=== PATIENT | female | born 2000 | race Two or more races ===

== ENCOUNTER 2022-02-13 09:01 | Inpatient (IN) | payer MEDICAID, SELFPAY ==
[2022-02-13] VITALS (25 sets, daily range): BP systolic 101–119; BP diastolic 67–86; PULSE 73–101; RESP 16; TEMP 36.2–36.8; O2SAT 97–100
--- NOTE | 2022-02-13 10:01 | ED_ITS ---
HPI - General Adult General Time Seen by Provider: 10:07 Date Seen: 02/13/22 Chief complaint: Nausea/Vomiting Stated complaint: loose stool and vomitting Time Seen by Provider: 02/13/22 09:59 Source: patient and RN notes reviewed Mode of arrival: ambulatory Limitations: no limitations History of Present Illness HPI narrative: This 21-year-old female is coming in with 6 days of illness, concerned that she is not improving and really can not eat anything. She did try to call the clinic but the 1st appointment they could give her was February 18. She was on a plane to [place] and started feeling nauseated, thought it was just motion sickness. However when she got to [place] she did have ensuing worsening nausea, vomiting, diarrhea and has had ongoing symptoms. There has been no blood. She is able to drink some fluids but really can not eat anything. She does get some abdominal pain, no fevers. No respiratory symptoms. She saw nurse yesterday before getting on a plane to come back from [place]. Her pulse was in the 130s. She really was not cognizant that her pulse was that high. Her pulse remained that high on her watch during air travel. She is not having any chest pain, no shortness of breath. She is on oral contraceptives and does not believe she has missed any doses. She has had some increased vaginal discharge but there is no odor, no pain, no itching. She is sexually active but no concerns for any STi's. She has had no respiratory symptoms with this. No urinary symptoms. There is no family history of any inflammatory bowel disease that she is aware of. She states she still having ongoing nausea and vomiting, ongoing diarrhea. Related Data Previous Rx's Medication Instructions Recorded levonorgestrel 0.15 mg-ethinyl 1 tab PO QDAY 56 days #56 tabs 12/11/21 estradiol 0.03 mg tablet Allergies Allergy/AdvReac Type Severity Reaction Status Date / Time strawberry Allergy Difficulty Verified 02/13/22 09:33 Breathing Review of Systems Status of ROS: Reports: 10 or more systems reviewed and unremarkable except as noted in History and below [facility] Medical History (Updated 02/13/22 @ 14:11 by Valeri Simon MD) Migraines Family History (Updated 11/18/21 @ 09:33 by Megan Dubosi MD) Other Breast cancer High blood pressure Social History (Updated 11/18/21 @ 09:34 by Megan Dubois MD) Narrative: She lives in [place]. 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 Originally from [facility]. Doesn't smoke or use recreational drugs. Drinks alcohol socially Smoking Status: Never smoker Do you use any of these nicotine containing products: None Second hand tobacco smoke exposure: No How often do you have a drink containing alcohol: monthly or less How many standard drinks containing alcohol do you have on a typical day: 1 or 2 How often do you have six or more drinks on one occasion: Never AUDIT-C Alcohol total score: 1 Non-prescribed substance use: denies use service: No Exam Const: Vital Signs, click to edit/add: Vital Signs - 24 hr 02/13/22 09:29 02/13/22 10:57 02/13/22 10:59 Temperature 97.1 F L Pulse Rate 81 Pulse Rate [Pulse Oximeter] 96 Respiratory Rate 16 Blood Pressure Blood Pressure [Ri ght Upper Arm] 119/86 Pulse Oximetry 99 99 98 Oxygen Delivery Me thod Room Air 02/13/22 11:00 02/13/22 11:01 02/13/22 11:15 Temperature Pulse Rate 83 92 81 Pulse Rate [Pulse Oximeter] Respiratory Rate Blood Pressure 109/76 Blood Pressure [Ri ght Upper Arm] Pulse Oximetry 98 98 98 Oxygen Delivery Me thod 02/13/22 11:30 02/13/22 11:31 02/13/22 11:57 Temperature Pulse Rate 81 94 101 H Pulse Rate [Pulse Oximeter] Respiratory Rate Blood Pressure 109/74 Blood Pressure [Ri ght Upper Arm] Pulse Oximetry 99 99 100 Oxygen Delivery Me thod 02/13/22 12:00 02/13/22 12:01 02/13/22 12:15 Temperature Pulse Rate 95 98 76 Pulse Rate [Pulse Oximeter] Respiratory Rate Blood Pressure 116/67 Blood Pressure [Ri ght Upper Arm] Pulse Oximetry 98 99 98 Oxygen Delivery Me thod 02/13/22 12:30 02/13/22 12:31 02/13/22 12:45 Temperature Pulse Rate 75 85 87 Pulse Rate [Pulse Oximeter] Respiratory Rate Blood Pressure 108/73 Blood Pressure [Ri ght Upper Arm] Pulse Oximetry 98 99 99 Oxygen Delivery Me thod 02/13/22 13:01 02/13/22 13:01 02/13/22 13:15 Temperature Pulse Rate 85 73 87 Pulse Rate [Pulse Oximeter] Respiratory Rate Blood Pressure 110/72 Blood Pressure [Ri ght Upper Arm] Pulse Oximetry 99 98 97 Oxygen Delivery Me thod 02/13/22 13:31 Temperature Pulse Rate Pulse Rate [Pulse Oximeter] Respiratory Rate Blood Pressure 101/69 Blood Pressure [Ri ght Upper Arm] Pulse Oximetry Oxygen Delivery Me thod Documenting provider has reviewed patient's vital signs: yes Common normals: no apparent distress, average body habitus, oriented x3, no limitations, healthy appearing, alert and well nourished General appearance: cooperative, comfortable, well kempt and well developed HENMT: Common normals: normocephalic, head/scalp atraumatic, hearing grossly normal bilaterally, external ears normal, TM's normal bilaterally, external nose normal, nasal mucous membranes and turbinates normal, moist oral mucous membranes, oropharynx normal, dentition normal and gingiva normal Head and scalp: normocephalic and atraumatic Nose: external nose normal and nasal mucous membranes and turbinates normal External ear: external ears normal Tympanic membrane: TM's normal bilaterally Eye: Common normals: PERRL, EOMs intact bilaterally, conjunctivae normal and no scleral icterus Conjunctiva: conjunctiva(e) normal Pupil: PERRL Neck & C-Spine: Common normals: full ROM, no lymphadenopathy, supple, no meningeal signs, no JVD and thyroid normal Thyroid: thyroid normal Lymph: Lymphatic: no lymphadenopathy noted Chest: Common normals: inspection of chest normal Resp: Common normals: normal respiratory effort, no retractions, no use of accessory muscles and clear to auscultation bilaterally Auscultation: clear to auscultation bilaterally Cardio: Common normals: no JVD, regular rate, regular rhythm, S1 normal heart sound, S2 normal heart sound, no gallops, no clicks and no murmurs Rate: regular rate Rhythm: regular rhythm Heart sounds: S1 normal and S2 normal GI: Common normals: Normal to inspection, nondistended, normoactive bowel sounds present, soft to palpation, non-tender, no hepatosplenomegaly and no masses Palpation: soft and no hepatosplenomegaly : Common normals: no CVA tenderness Bladder/kidney exam: no CVA tenderness Back & Pelvis: Common normals: no CVA tenderness Neuro: Common normals: oriented x3 Sensorium/orientation: alert Meningeal signs: no meningeal signs Psych: Appearance: well kempt Course Course Hospital Course: Patient is exhibiting ongoing GI symptomatology which could be a gastroenteritis, inflammatory bowel disease, could be a presentation of some of the current viral illnesses with more of a GI predominance such as COVID or influenza. Could be complicating issues with the tachycardia being dehydration but will consider other etiologies. Doubt it is myocarditis. Will do a D- dimer, she understands if that is elevated she will be having a chest CT PE protocol. Will initiate some IV fluids and give her IV Zofran. She understands if she does have stool here that we will collect for studies. Reevaluation(s) Reevaluation #1: Patient is advised that I am ordering a CT of her abdomen and pelvis. She does relate to me that her white count usually is elevated. However, I have reviewed with her that her C reactive protein is quite high. I do think we need to proceed with CT abdomen pelvis given length of her symptoms. She is negative for influenza and COVID, reviewed with her that her cardiac labs are looking normal, D-dimer is normal. Likewise, her electrolytes are reassuring. Time: 11:31 Reevaluation #2: Reviewed with patient CT scan showing colitis. I have spoken with the hospitalist, bed status is quite limited, possibly no beds at this time. Patient will be given more IV fluids. I feel she needs some supportive cares while we attempt to collect stool on her. I believe she needs hospitalization for some ongoing fluid management and ongoing workup of her abdominal pain with nausea vomiting and diarrhea that is ongoing with a CT showing colitis. Will have the hospitalist consult down here if they are unable to admit at this time. This may be a patient that may benefit from Flagyl if her C difficile were to come back negative. Time: 14:10 Consultations Consultation #1: Have spoken with the hospitalist Dr. Scott who will accept the patient. He would like blood cultures obtain and then a dose of IV Zosyn given. I will order this on his request. Time: 15:05 Vital Signs Vital signs: Initial Vital Signs Temperature 97.1 F L 02/13/22 09:29 Temperature Source Temporal Artery Scan 02/13/22 09:29 Pulse Rate 96 02/13/22 09:29 Respiratory Rate 16 02/13/22 09:29 Blood Pressure 119/86 02/13/22 09:29 Blood Pressure Mean 97 02/13/22 09:29 Blood Pressure Position Sitting 02/13/22 09:29 Pulse Oximetry 99 02/13/22 09:29 Oxygen Delivery Method 02/13/22 09:29 Vital Signs Temperature 97.1 F L 02/13/22 09:29 Pulse Rate 96 02/13/22 09:29 Respiratory Rate 16 02/13/22 09:29 Blood Pressure 119/86 02/13/22 09:29 Pulse Oximetry 99 02/13/22 09:29 Oxygen Delivery Method 02/13/22 09:29 Temperature 97.1 F L 02/13/22 09:29 Pulse Rate 87 02/13/22 13:15 Respiratory Rate 16 02/13/22 09:29 Blood Pressure 101/69 02/13/22 13:31 Pulse Oximetry 97 02/13/22 13:15 Oxygen Delivery Method 02/13/22 09:29 Medical Decision Making Lab Data Lab results reviewed: Yes I reviewed the patient's lab results Labs: Lab Results 02/13/22 02/13/22 02/13/22 Range/Units 09:44 10:30 10:30 WBC 12.60 H (4.50-11.00) K/uL RBC 5.17 (4.00-5.20) m/uL Hgb 14.8 (12.0-16.0) gm/dL Hct 44.1 (33.0-51.0) % MCV 85 (80-100) fL MCH 29 (26-34) pg MCHC 34 (32-36) gm/dL RDW Coeff of Rosa 12.4 (11.5-15.5) % Plt Count 465 H (140-440) K/uL Neut % (Auto) 73.6 H (42.0-72.0) % Lymph % (Auto) 18.1 L (20-44) % [place] % (Auto) 7.6 (0.0-11.0) % Eos % (Auto) 0.4 (0.0-7.0) % Baso % (Auto) 0.1 (0.0-3.0) % Neut # (Auto) 9.30 H (1.7-7.0) K/uL Lymph # (Auto) 2.30 (0.90-2.90) K/uL [place] # (Auto) 1.00 H (0.00-0.90) K/UL Eos # (Auto) 0.10 (0.00-0.50) K/uL Baso # (Auto) 0.00 (0.00-0.30) K/uL Abs Immat Gran (auto) 0.00 (0.00-0.30) K/uL Imm/Tot Granulo (auto) 0.2 % ESR (2-20) mm/hr D-Dimer Quant (PE/DVT) (0.00-0.50) ug/ml Sodium 140 (135-149) mmol/L Potassium 4.0 (3.6-5.1) mmol/L Chloride 107 (96-114) mmol/L Carbon Dioxide 21 (20-32) mmol/L BUN 15 (5-24) mg/dL Creatinine 0.8 (0.5-1.5) mg/dL Estimated GFR 107 ml/min Glucose 77 (60-115) mg/dL Lactate (0.5-1.9) mmol/L Calcium 9.2 (8.4-10.6) mg/dL Magnesium (1.5-2.6) mg/dL Total Bilirubin 0.6 (0.1-1.5) mg/dL AST 31 (12-35) U/L ALT 37 H (4-35) U/L Alkaline Phosphatase 78 (40-150) U/L C-Reactive Protein 8.4 H (0.5-1.0) mg/dL NT-Pro-B Natriuret Pep (0-125) PG/mL Total Protein 8.0 (6.0-8.3) g/dL Albumin 4.7 (3.3-5.0) g/dL Lipase (23-300) U/L TSH (0.270-4.200) uIU/mL HCG, Qual (Negative) Urine Color (Yellow) Urine Appearance (Clear) Urine pH (5.0-8.5) Ur Specific [place] (1.000-1.030) Urine Protein (Negative) Urine Glucose (UA) (Negative) Urine Ketones (Negative) Urine Blood (Negative) Urine Nitrite (Negative) Urine Bilirubin (Negative) Urine Urobilinogen (0.2-1.0) Ur Leukocyte Esterase (Negative) Urine RBC (0-2) Urine WBC (0-5) Ur Squamous Epith Cells (None-Few) Urine Bacteria (None) SARS-CoV-2 (PCR) Negative SARS-CoV-2 (Negative) Influenza Type A (PCR) Negative PCR FLU A (Negative) Influenza Type B (PCR) Negative PCR FLU B (Negative) POC Troponin I (0.01-0.04) ng/ml 02/13/22 02/13/22 02/13/22 Range/Units 10:30 10:30 10:30 WBC (4.50-11.00) K/uL RBC (4.00-5.20) m/uL Hgb (12.0-16.0) gm/dL Hct (33.0-51.0) % MCV (80-100) fL MCH (26-34) pg MCHC (32-36) gm/dL RDW Coeff of Rosa (11.5-15.5) % Plt Count (140-440) K/uL Neut % (Auto) (42.0-72.0) % Lymph % (Auto) (20-44) % [place] % (Auto) (0.0-11.0) % Eos % (Auto) (0.0-7.0) % Baso % (Auto) (0.0-3.0) % Neut # (Auto) (1.7-7.0) K/uL Lymph # (Auto) (0.90-2.90) K/uL [place] # (Auto) (0.00-0.90) K/UL Eos # (Auto) (0.00-0.50) K/uL Baso # (Auto) (0.00-0.30) K/uL Abs Immat Gran (auto) (0.00-0.30) K/uL Imm/Tot Granulo (auto) % ESR 16 (2-20) mm/hr D-Dimer Quant (PE/DVT) 0.29 (0.00-0.50) ug/ml Sodium (135-149) mmol/L Potassium (3.6-5.1) mmol/L Chloride (96-114) mmol/L Carbon Dioxide (20-32) mmol/L BUN (5-24) mg/dL Creatinine (0.5-1.5) mg/dL Estimated GFR ml/min Glucose (60-115) mg/dL Lactate (0.5-1.9) mmol/L Calcium (8.4-10.6) mg/dL Magnesium 2.1 (1.5-2.6) mg/dL Total Bilirubin (0.1-1.5) mg/dL AST (12-35) U/L ALT (4-35) U/L Alkaline Phosphatase (40-150) U/L C-Reactive Protein (0.5-1.0) mg/dL NT-Pro-B Natriuret Pep 28 (0-125) PG/mL Total Protein (6.0-8.3) g/dL Albumin (3.3-5.0) g/dL Lipase 52 (23-300) U/L TSH (0.270-4.200) uIU/mL HCG, Qual (Negative) Urine Color (Yellow) Urine Appearance (Clear) Urine pH (5.0-8.5) Ur Specific [place] (1.000-1.030) Urine Protein (Negative) Urine Glucose (UA) (Negative) Urine Ketones (Negative) Urine Blood (Negative) Urine Nitrite (Negative) Urine Bilirubin (Negative) Urine Urobilinogen (0.2-1.0) Ur Leukocyte Esterase (Negative) Urine RBC (0-2) Urine WBC (0-5) Ur Squamous Epith Cells (None-Few) Urine Bacteria (None) SARS-CoV-2 (PCR) (Negative) Influenza Type A (PCR) (Negative) Influenza Type B (PCR) (Negative) POC Troponin I (0.01-0.04) ng/ml 02/13/22 02/13/22 02/13/22 Range/Units 10:30 10:30 10:30 WBC (4.50-11.00) K/uL RBC (4.00-5.20) m/uL Hgb (12.0-16.0) gm/dL Hct (33.0-51.0) % MCV (80-100) fL MCH (26-34) pg MCHC (32-36) gm/dL RDW Coeff of Rosa (11.5-15.5) % Plt Count (140-440) K/uL Neut % (Auto) (42.0-72.0) % Lymph % (Auto) (20-44) % [place] % (Auto) (0.0-11.0) % Eos % (Auto) (0.0-7.0) % Baso % (Auto) (0.0-3.0) % Neut # (Auto) (1.7-7.0) K/uL Lymph # (Auto) (0.90-2.90) K/uL [place] # (Auto) (0.00-0.90) K/UL Eos # (Auto) (0.00-0.50) K/uL Baso # (Auto) (0.00-0.30) K/uL Abs Immat Gran (auto) (0.00-0.30) K/uL Imm/Tot Granulo (auto) % ESR (2-20) mm/hr D-Dimer Quant (PE/DVT) (0.00-0.50) ug/ml Sodium (135-149) mmol/L Potassium (3.6-5.1) mmol/L Chloride (96-114) mmol/L Carbon Dioxide (20-32) mmol/L BUN (5-24) mg/dL Creatinine (0.5-1.5) mg/dL Estimated GFR ml/min Glucose (60-115) mg/dL Lactate 1.1 (0.5-1.9) mmol/L Calcium (8.4-10.6) mg/dL Magnesium (1.5-2.6) mg/dL Total Bilirubin (0.1-1.5) mg/dL AST (12-35) U/L ALT (4-35) U/L Alkaline Phosphatase (40-150) U/L C-Reactive Protein (0.5-1.0) mg/dL NT-Pro-B Natriuret Pep (0-125) PG/mL Total Protein (6.0-8.3) g/dL Albumin (3.3-5.0) g/dL Lipase (23-300) U/L TSH 2.150 (0.270-4.200) uIU/mL HCG, Qual Negative (Negative) Urine Color (Yellow) Urine Appearance (Clear) Urine pH (5.0-8.5) Ur Specific [place] (1.000-1.030) Urine Protein (Negative) Urine Glucose (UA) (Negative) Urine Ketones (Negative) Urine Blood (Negative) Urine Nitrite (Negative) Urine Bilirubin (Negative) Urine Urobilinogen (0.2-1.0) Ur Leukocyte Esterase (Negative) Urine RBC (0-2) Urine WBC (0-5) Ur Squamous Epith Cells (None-Few) Urine Bacteria (None) SARS-CoV-2 (PCR) (Negative) Influenza Type A (PCR) (Negative) Influenza Type B (PCR) (Negative) POC Troponin I (0.01-0.04) ng/ml 02/13/22 02/13/22 Range/Units 10:30 14:30 WBC (4.50-11.00) K/uL RBC (4.00-5.20) m/uL Hgb (12.0-16.0) gm/dL Hct (33.0-51.0) % MCV (80-100) fL MCH (26-34) pg MCHC (32-36) gm/dL RDW Coeff of Rosa (11.5-15.5) % Plt Count (140-440) K/uL Neut % (Auto) (42.0-72.0) % Lymph % (Auto) (20-44) % [place] % (Auto) (0.0-11.0) % Eos % (Auto) (0.0-7.0) % Baso % (Auto) (0.0-3.0) % Neut # (Auto) (1.7-7.0) K/uL Lymph # (Auto) (0.90-2.90) K/uL [place] # (Auto) (0.00-0.90) K/UL Eos # (Auto) (0.00-0.50) K/uL Baso # (Auto) (0.00-0.30) K/uL Abs Immat Gran (auto) (0.00-0.30) K/uL Imm/Tot Granulo (auto) % ESR (2-20) mm/hr D-Dimer Quant (PE/DVT) (0.00-0.50) ug/ml Sodium (135-149) mmol/L Potassium (3.6-5.1) mmol/L Chloride (96-114) mmol/L Carbon Dioxide (20-32) mmol/L BUN (5-24) mg/dL Creatinine (0.5-1.5) mg/dL Estimated GFR ml/min Glucose (60-115) mg/dL Lactate (0.5-1.9) mmol/L Calcium (8.4-10.6) mg/dL Magnesium (1.5-2.6) mg/dL Total Bilirubin (0.1-1.5) mg/dL AST (12-35) U/L ALT (4-35) U/L Alkaline Phosphatase (40-150) U/L C-Reactive Protein (0.5-1.0) mg/dL NT-Pro-B Natriuret Pep (0-125) PG/mL Total Protein (6.0-8.3) g/dL Albumin (3.3-5.0) g/dL Lipase (23-300) U/L TSH (0.270-4.200) uIU/mL HCG, Qual (Negative) Urine Color Yellow (Yellow) Urine Appearance Clear (Clear) Urine pH 5.0 (5.0-8.5) Ur Specific [place] 1.010 (1.000-1.030) Urine Protein Negative (Negative) Urine Glucose (UA) Negative (Negative) Urine Ketones 4+ A (Negative) Urine Blood 2+ A (Negative) Urine Nitrite Negative (Negative) Urine Bilirubin Negative (Negative) Urine Urobilinogen 0.2 (0.2-1.0) Ur Leukocyte Esterase Negative (Negative) Urine RBC 2-5 A (0-2) Urine WBC 0-2 (0-5) Ur Squamous Epith Cells Few (None-Few) Urine Bacteria Few A (None) SARS-CoV-2 (PCR) (Negative) Influenza Type A (PCR) (Negative) Influenza Type B (PCR) (Negative) POC Troponin I 0.01 (0.01-0.04) ng/ml Imaging Data CT scan - abdomen: Attestation: I have reviewed the pertinent imaging results. Radiologist's impression: Patient: JUVE LANTIGUA Facility:?[facility] Patient ID:?[id number] Site Patient ID:?[id number]. Site :?[id number] Study:?CT Abdomen/Pelvis W ISOVUE 370-02/13/2022 12:07:15 PM Ordering Physician:Germain Trammell Final Report: INDICATION: Nausea, vomiting, diarrhea, prolonged abdominal pain. Elevated inflammatory markers and WBC. TECHNIQUE: CT abdomen and pelvis acquired with 74 mL Isovue 370 IV contrast. Coronal and sagittal reformats were generated. COMPARISON: None. FINDINGS: Lower chest: Streaky left basilar opacity is likely atelectasis or scarring. Liver: Notably decreased attenuation of the liver is compatible with steatosis. Otherwise, unremarkable. Gallbladder and bile ducts: Unremarkable. No stones or inflammation. No biliary dilation. Spleen: Unremarkable. Pancreas: Unremarkable. Adrenal glands: Unremarkable. No nodules. Kidneys and Ureters: Unremarkable. No suspicious masses, stones, or hydronephrosis. Lymph Nodes and Retroperitoneum: Multiple enlarged mesenteric lymph nodes, primarily in the mid abdomen and right side. Vasculature: Unremarkable. GI tract: Portions of the colon demonstrate mucosal thickening and hyperemia, most prominently in the ascending and proximal transverse segments. Bowel loops are normal in caliber. Normal appendix. Peritoneum/Abdominal Wall: Unremarkable. No free air or free fluid. Pelvic Viscera: Unremarkable. Bladder: Unremarkable. Bones: Unremarkable for age. IMPRESSION: 1. Mucosal thickening and hyperemia of the proximal colon is compatible with colitis, most likely infectious or inflammatory in etiology. 2. Scattered enlarged lymph nodes are likely reactive. 3. Notable hepatic steatosis. Please note that all CT scans at this facility use dose modulation, iterative reconstruction, and/or weight-based dosing when appropriate to reduce radiation dose to as low as reasonably achievable. Dictated by Trevor Garza MD @ 02/13/2022 12:59:01 PM (Electronic Signature) ECG Data Attestation: I personally reviewed and interpreted this ECG as follows: (Sinus tachycardia, 102 beats per minute, flipped T-waves V1 through V3, flat V4/V5. No ST segment changes, no Q-waves. QT corrected 463 milliseconds.) Prior ECG tracings: not available for review Critical Care Time Critical Care Time Critical Care Time: No Discharge Plan Discharge Clinical Impression: Colitis Patient Disposition: Admitted As Inpatient Condition: Stable
[2022-02-13 10:43] LABS: Basophils Percent Auto 0.1 % (0.0-3.0); Eosinophils Percent Auto 0.4 % (0.0-7.0); Hematocrit 44.1 % (33.0-51.0); Hemoglobin* 14.8 gm/dL (12.0-16.0); Immature Granulocytes Pct Auto 0.2 %; Lymphocytes Percent Auto 18.1 % (20-44); Mean Corpuscular HGB Conc 34 gm/dL (32-36); Mean Corpuscular Hemoglobin 29 pg (26-34); Mean Corpuscular Volume 85 fL (80-100); Monocytes Percent Auto 7.6 % (0.0-11.0); Neutrophils Percent Auto 73.6 % (42.0-72.0); Platelet Count* 465 K/uL (140-440); RDW Coefficient of Variation % 12.4 % (11.5-15.5); Red Blood Count 5.17 m/uL (4.00-5.20)
[2022-02-13 10:46] LABS: Troponin, Point-of-Care* 0.01 ng/ml (0.01-0.04)
[2022-02-13] MEDS: ONDANSETRON 2 MG/ML inj 4 MG IVP (10:46)
[2022-02-13] MEDS: 0.9 % SODIUM CHLORIDE 1000 ml 1,000 ML 500 ML IV (10:46)
[2022-02-13 10:48] LABS: Slide Review Reflex No
[2022-02-13 10:49] LABS: Lactate* 1.1 mmol/L (0.5-1.9)
[2022-02-13 10:53] LABS: PCR FLU A Negative PCR FLU A (Negative); PCR FLU B Negative PCR FLU B (Negative)
[2022-02-13 10:56] LABS: SARS PCR* Negative SARS-CoV-2 (Negative)
[2022-02-13 11:00] LABS: HCG Qualitative Serum* Negative (Negative)
[2022-02-13 11:02] LABS: D Dimer Quantitative* 0.29 ug/ml (0.00-0.50)
[2022-02-13 11:06] LABS: Albumin* 4.7 g/dL (3.3-5.0); Chloride* 107 mmol/L (96-114)
[2022-02-13 11:07] LABS: Sodium* 140 mmol/L (135-149)
[2022-02-13 11:09] LABS: Bilirubin Total* 0.6 mg/dL (0.1-1.5); Creatinine* 0.8 mg/dL (0.5-1.5); Estimated Glomerular Filt Rate 107 ml/min
[2022-02-13 11:10] LABS: Alanine Aminotransferase* 37 U/L (4-35); Alkaline Phosphatase* 78 U/L (40-150); Aspartate Amino Transferase* 31 U/L (12-35); Blood Urea Nitrogen* 15 mg/dL (5-24); Calcium* 9.2 mg/dL (8.4-10.6); Carbon Dioxide* 21 mmol/L (20-32); Glucose* 77 mg/dL (60-115); Lipase* 52 U/L (23-300)
[2022-02-13 11:11] LABS: Magnesium* 2.1 mg/dL (1.5-2.6)
[2022-02-13 11:13] LABS: C Reactive Protein* 8.4 mg/dL (0.5-1.0)
[2022-02-13 11:19] LABS: NT Pro B Type NatriureticPept* 28 PG/mL (0-125)
--- NOTE | 2022-02-13 11:20 | CRLHL7_ITS ---
For Patients: As a result of the Century Cures Act, medical imaging exams and procedure reports are released immediately into your electronic medical record. You may view this report before your referring provider. If you have questions, please contact your health care provider. INDICATION: Nausea, vomiting, diarrhea, prolonged abdominal pain. Elevated inflammatory markers and WBC. TECHNIQUE: CT abdomen and pelvis acquired with 74 mL Isovue 370 IV contrast. Coronal and sagittal reformats were generated. COMPARISON: None. FINDINGS: Lower chest: Streaky left basilar opacity is likely atelectasis or scarring. Liver: Notably decreased attenuation of the liver is compatible with steatosis. Otherwise, unremarkable. Gallbladder and bile ducts: Unremarkable. No stones or inflammation. No biliary dilation. Spleen: Unremarkable. Pancreas: Unremarkable. Adrenal glands: Unremarkable. No nodules. Kidneys and Ureters: Unremarkable. No suspicious masses, stones, or hydronephrosis. Lymph Nodes and Retroperitoneum: Multiple enlarged mesenteric lymph nodes, primarily in the mid abdomen and right side. Vasculature: Unremarkable. GI tract: Portions of the colon demonstrate mucosal thickening and hyperemia, most prominently in the ascending and proximal transverse segments. Bowel loops are normal in caliber. Normal appendix. Peritoneum/Abdominal Wall: Unremarkable. No free air or free fluid. Pelvic Viscera: Unremarkable. Bladder: Unremarkable. Bones: Unremarkable for age. IMPRESSION: 1. Mucosal thickening and hyperemia of the proximal colon is compatible with colitis, most likely infectious or inflammatory in etiology. 2. Scattered enlarged lymph nodes are likely reactive. 3. Notable hepatic steatosis. Please note that all CT scans at this facility use dose modulation, iterative reconstruction, and/or weight-based dosing when appropriate to reduce radiation dose to as low as reasonably achievable. Dictated by Trevor Garza MD @ 02/13/2022 12:59:01 PM (Electronically Signed)
[2022-02-13 11:39] LABS: Erythrocyte SedimentationRate* 16 mm/hr (2-20)
[2022-02-13 14:48] LABS: Appearance Urine Clear (Clear); Bilirubin Urine Negative (Negative); Blood Urine 2+ (Negative); Glucose Urine Negative (Negative); Ketones Urine 4+ (Negative); Leukocyte Esterase Urine Negative (Negative); Nitrite Urine Negative (Negative); Protein Urine Negative (Negative); Urobilinogen Urine 0.2 (0.2-1.0)
[2022-02-13] MEDS: LACTATED RINGERS 1000 ML 1,000 ML 125 ML IV (14:59)
[2022-02-13 15:04] LABS: WBC Urine 0-2 (0-5)
[2022-02-13 15:05] LABS: Bacteria Urine Few; Squamous Epithelial Cell Urine Few (None-Few)
[2022-02-13 15:09] LABS: Color Urine Yellow (Yellow)
[2022-02-13] MEDS: PIPERACILLIN/TAZOBACTAM 3.375 GM in 0.9 % SODIUM CHLORIDE Mini-bag 100 ML IVPB ×2 (15:33→20:50)
--- NOTE | 2022-02-13 15:45 | ED.NURSE ---
report was given to abimael montano. will go to 262 via w/c.
--- NOTE | 2022-02-13 16:45 | PM.IMHP1 ---
Hospitalist- H&P: HPI History of Present Illness Date Seen: 03/14/22 Chief complaint: loose stool and vomitting Narrative: Rosemary Osborne is a 21 year old female presenting for evaluation of abdominal pain and diarrhea. The patient was in [facility] for over one week. She did not travel to rural areas and drank bottled water. She returned to [place] yesterday. She developed diarrhea on the plane and continued to have diarrhea today with intermittent crampy abdominal pain. She denies fever. In the ED WBC elevated at 12 (per patient she has chronically elevated WBC), Lactate WNL. CT AP showed Mucosal thickening and hyperemia of the proximal colon is compatible with colitis, most likely infectious or inflammatory in etiology. Scattered enlarged lymph nodes are likely reactive. Notable hepatic steatosis. She was given IVF and started on zosyn. On arrival to the floor the patient is asking if she can be discharged. Review of Systems Narrative: negative except as noted above PFSH PENDING SALE TO [facility] Medical History (Updated 02/13/22 @ 14:11 by Valeri Simon MD) Migraines Family History (Updated 11/18/21 @ 09:33 by Megan Dubois MD) Other Breast cancer High blood pressure Social History (Updated 11/18/21 @ 09:34 by Megan Dubois MD) Narrative: She lives in [place]. She is working at the [employer], and is also a student at [employer]. 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 Originally from [facility]. Doesn't smoke or use recreational drugs. Drinks alcohol socially Smoking Status: Never smoker Do you use any of these nicotine containing products: None Second hand tobacco smoke exposure: No How often do you have a drink containing alcohol: monthly or less How many standard drinks containing alcohol do you have on a typical day: 1 or 2 How often do you have six or more drinks on one occasion: Never AUDIT-C Alcohol total score: 1 Non-prescribed substance use: denies use service: No Meds Home Medications and Allergies Allergies Allergy/AdvReac Type Severity Reaction Status Date / Time strawberry Allergy Difficulty Verified 02/13/22 09:33 Breathing Exam Narrative: Exam Narrative: Gen: No acute distress HEENT NCAT EOMI MMMM CV: RRR s1 s2 lctab abdomen: soft, nt, nd Neuro: Alert oriented cn intact skin: warm, dry no rash MSK age appropriate muscle mass Const: Vital Signs, click to edit/add: Vital Signs - 24 hr 02/13/22 09:29 02/13/22 10:57 02/13/22 10:59 Temperature 97.1 F L Pulse Rate 81 Pulse Rate [Pulse Oximeter] 96 Pulse Rate [Right Radial] Respiratory Rate 16 Blood Pressure Blood Pressure [Ri ght Arm] Blood Pressure [Ri ght Upper Arm] 119/86 Pulse Oximetry 99 99 [facility] 02/13/22 11:00 02/13/22 11:01 02/13/22 11:15 Temperature Pulse Rate 83 92 81 Pulse Rate [Pulse Oximeter] Pulse Rate [Right Radial] Respiratory Rate Blood Pressure 109/76 Blood Pressure [Ri ght Arm] Blood Pressure [Ri ght Upper Arm] Pulse Oximetry 98 98 98 [facility] 02/13/22 11:30 02/13/22 11:31 02/13/22 11:57 Temperature Pulse Rate 81 94 101 H Pulse Rate [Pulse Oximeter] Pulse Rate [Right Radial] Respiratory Rate Blood Pressure 109/74 Blood Pressure [Ri ght Arm] Blood Pressure [Ri ght Upper Arm] Pulse Oximetry 99 99 100 [facility] 02/13/22 12:00 02/13/22 12:01 02/13/22 12:15 Temperature Pulse Rate 95 98 76 Pulse Rate [Pulse Oximeter] Pulse Rate [Right Radial] Respiratory Rate Blood Pressure 116/67 Blood Pressure [Ri ght Arm] Blood Pressure [Ri ght Upper Arm] Pulse Oximetry 98 99 98 Oxygen Delivery Ri thod 02/13/22 12:30 02/13/22 12:31 02/13/22 12:45 Temperature Pulse Rate 75 85 87 Pulse Rate [Pulse Oximeter] Pulse Rate [Right Radial] Respiratory Rate Blood Pressure 108/73 Blood Pressure [Ri ght Arm] Blood Pressure [Ri ght Upper Arm] Pulse Oximetry 98 99 99 Oxygen Delivery Ri thod 02/13/22 13:01 02/13/22 13:01 02/13/22 13:15 Temperature Pulse Rate 85 73 87 Pulse Rate [Pulse Oximeter] Pulse Rate [Right Radial] Respiratory Rate Blood Pressure 110/72 Blood Pressure [Ri ght Arm] Blood Pressure [Ri ght Upper Arm] Pulse Oximetry 99 98 97 [facility] 02/13/22 13:31 02/13/22 14:01 02/13/22 15:03 Temperature Pulse Rate Pulse Rate [Pulse Oximeter] Pulse Rate [Right Radial] Respiratory Rate Blood Pressure 101/69 106/67 104/71 Blood Pressure [Ri ght Arm] Blood Pressure [Ri ght Upper Arm] Pulse Oximetry Oxygen Delivery Me thod 02/13/22 15:34 02/13/22 15:35 02/13/22 16:15 Temperature 98.3 F Pulse Rate 82 82 Pulse Rate [Pulse Oximeter] Pulse Rate [Right Radial] 85 Respiratory Rate 16 Blood Pressure 114/72 Blood Pressure [Ri ght Arm] 116/74 Blood Pressure [Ri ght Upper Arm] Pulse Oximetry 98 98 99 Oxygen Delivery Me thod Room Air Hospitalist - H&P: Result Labs Labs: Short CBC 02/13/22 Range/Units 10:30 WBC 12.60 H (4.50-11.00) K/uL Hgb 14.8 (12.0-16.0) gm/dL Hct 44.1 (33.0-51.0) % Plt Count 465 H (140-440) K/uL BMP 02/13/22 10:30 Sodium 140 Potassium 4.0 Chloride 107 Carbon Dioxide 21 BUN 15 Creatinine 0.8 Glucose 77 Calcium 9.2 Liver Function 02/13/22 Range/Units 10:30 Total Bilirubin 0.6 (0.1-1.5) mg/dL AST 31 (12-35) U/L ALT 37 H (4-35) U/L Alkaline Phosphatase 78 (40-150) U/L Albumin 4.7 (3.3-5.0) g/dL Urine 02/13/22 Range/Units 14:30 Urine Color Yellow (Yellow) Urine Appearance Clear (Clear) Urine pH 5.0 (5.0-8.5) Ur Specific [place] 1.010 (1.000-1.030) Urine Protein Negative (Negative) Urine Glucose (UA) Negative (Negative) Assessment and Plan Assessment and plan (1) Colitis: Status: Acute Plan Assessment: Rosemary Osborne is a 21 year old female presenting for evaluation of abdominal pain and diarrhea. The patient was in [facility] for over one week. She did not travel to rural areas and drank bottled water. She returned to [place] yesterday. She developed diarrhea on the plane and continued to have diarrhea today with intermittent crampy abdominal pain. In the ED WBC elevated at 12 (per patient she has chronically elevated WBC), Lactate WNL. CT AP showed Mucosal thickening and hyperemia of the proximal colon is compatible with colitis, most likely infectious or inflammatory in etiology. Scattered enlarged lymph nodes are likely reactive. Notable hepatic steatosis. She was given IVF and started on zosyn. 1. acute colitis; infectious vs inflammatory 2. Chronic leukocytosis Plan -continue zosyn -IVF -c diff pcr -stool culture -enteric pathogen panel Code-Full DVT ppx-low risk Dispo-patient requesting discharge tomorrow
[2022-02-13 17:39] LABS: C.Difficile Negative (Negative); CDIFFEPI 027 PRESUMPTIVE NEGATIVE (Negative)
[2022-02-13] MEDS: OXYCODONE 5 MG TABLET 2.5 MG PO (20:49)
--- NOTE | 2022-02-13 22:20 | PC.NURSE ---
[id number] Pt states she feels better and wants to go home, Pt left AMA, with form signed, instructed to follow up with PCP and come back to ED if feeling ill/sick. all pt questions answered.
[2022-02-18 02:05] LABS: Ova and Parasite, Fecal Negative (Negative)
--- NOTE | 2022-02-19 16:00 | PC.NURSE ---
Lab report stool culture from 02/13 is showing campylobacter jejuni. Informed Dr. Paredes. Per MD, patient should be informed of lab results and should follow up with primary physician before the weekend, but that these results are not an emergency. Attempted to call patient on number in chart, no answer. Left message for patient to return call to Med/Surg.
== END 2022-02-13 22:15 | disposition left against medical advice (07) | DRG 392 ==
LOC: ED 15:06 → MEDSURG 15:19
PROVIDERS: Family Medicine; Admitting Provider Hospitalist; Emergency Provider Family Medicine; PCP Family Medicine; Visit Provider Hospitalist
DX: K52.9 Noninfective gastroenteritis and colitis, unspecified (principal); R00.0 Tachycardia, unspecified; D72.829 Elevated white blood cell count, unspecified; K76.0 Fatty (change of) liver, not elsewhere classified
CPT/HCPCS: 36415; 74177; 80053; 81001; 83605; 83690; 83735; 83880; 84443; 84484; 84703; 85025; 85379; 85651; 86140; 87040; 87045; 87046; 87077; 87086; 87177; 87209; 87252; 87329; 87427; 87493; 87502; 87631; 87634; 87635; 93005; 94761; 99284; 99285; A9270; J2405; J2543; J7030; J7120; Q9967

== ENCOUNTER 2022-10-09 18:07 | Emergency (ER) | payer MEDICAID, SELFPAY ==
[2022-10-09 18:11] VITALS: BP 135/90; PULSE 89; RESP 20; TEMP 36.6; O2SAT 98; BMI 32.9
--- NOTE | 2022-10-09 18:27 | ED.NAVMDI ---
HPI - Nausea/Vomiting/Diarrhea General Chief complaint: Nausea/Vomiting Stated complaint: Vomiting Time Seen by Provider: 10/09/22 18:21 History of Present Illness HPI Narrative: This 22-year-old female comes in reporting 4 5 episodes of vomiting with associated nausea. This started about 4 hours ago when she was leaving work. She does not report any fever or diarrhea. Prior to this she was in good health. She does report some episodes of lightheadedness related to this. Related Data Previous Rx's Medication Instructions Recorded ketorolac 10 mg tablet 10 mg PO Q8H 5 days #15 tabs 10/09/22 metoclopramide HCl 10 mg tablet 10 mg PO Q6H PRN nausea and 10/09/22 (Reglan) vomiting #15 tabs Allergies Allergy/AdvReac Type Severity Reaction Status Date / Time strawberry Allergy Difficulty Verified 10/09/22 19:32 Breathing Review of Systems Status of ROS: Reports: 10 or more systems reviewed and unremarkable except as noted in History and below Narrative: Constitutional: No fevers, no weight gain or loss. Eyes: No discharge. No vision changes. HENT: No congestion, no sore throat, no ear pain. Cardiovascular: No chest pain, no palpitations. Respiratory: No shortness of breath, no wheezes, no cough. Gastrointestinal: No abdominal pain, no diarrhea. Nausea and vomiting as described above. Genitourinary: No dysuria, no hematuria. Musculoskeletal: Normal range of motion. Skin: No rashes, no pruritis. Neurological: No dizziness, weakness, sensory change, speech change. Endo/Heme/Allergies: No bruising or bleeding. No polydipsia. Pysch: no suicidality, no anxiety, no insomnia. All other systems reviewed and are negative. [facility] Medical History (Updated 10/09/22 @ 20:33 by Dane Coy MD) Migraines ?G43.909 - Migraine, unspecified, not intractable, without status migrainosus (ICD-10) Family History (Updated 11/18/21 @ 09:33 by Megan Dubois MD) Other Breast cancer High blood pressure Social History (Updated 11/18/21 @ 09:34 by Megan Dubois MD) Narrative: She lives in [place]. 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 Originally from [facility]. Doesn't smoke or use recreational drugs. Drinks alcohol socially Smoking Status: Never smoker Do you use any of these nicotine containing products: None Second hand tobacco smoke exposure: No How often do you have a drink containing alcohol: monthly or less How many standard drinks containing alcohol do you have on a typical day: 1 or 2 How often do you have six or more drinks on one occasion: Never AUDIT-C Alcohol total score: 1 Non-prescribed substance use: denies use service: No Exam Narrative: Exam Narrative: Constitutional: Well-developed, well-nourished, no acute distress. HEENT: Normocephalic, atraumatic. Neck: Normal range of motion. Nontender. Supple. Heart: Regular. No murmurs. Normal rate. Intact distal pulses. Lungs: Clear to auscultation. No chest discomfort. No wheezes, rhonchi, or rales. Abdomen: Normal bowel sounds. Nontender. No rebound tenderness. Genitalia: Deferred. Back: No midline tenderness. Normal range of motion. Extremities: Normal range of motion. No injury. Skin: Intact. No rash. Warm. No erythema or pallor. Neurologic: No altered sensation. No weakness. Alert and oriented. Psychiatric: No suicidality. No anxiety or depression. No insomnia. Nursing notes and vitals signs are reviewed. Const: Vital Signs, click to edit/add: Vital Signs - 24 hr 10/09/22 18:11 10/09/22 19:53 Temperature 97.9 F 97.2 F L Pulse Rate [Right Pulse Oximeter] 89 76 Respiratory Rate 20 18 Blood Pressure [Ri ght Upper Arm] 135/90 H 110/44 L Pulse Oximetry 98 97 Oxygen Delivery Me thod Room Air Room Air Course Vital Signs Vital signs: Initial Vital Signs Temperature 97.9 F 10/09/22 18:11 Temperature Source Temporal Artery Scan 10/09/22 18:11 Pulse Rate 89 10/09/22 18:11 Pulse Rhythm Regular 10/09/22 18:11 Respiratory Rate 20 10/09/22 18:11 Blood Pressure 135/90 H 10/09/22 18:11 Blood Pressure Mean 105 10/09/22 18:11 Pulse Oximetry 98 10/09/22 18:11 Oxygen Delivery Method Room Air 10/09/22 18:11 Vital Signs Temperature 97.9 F 10/09/22 18:11 Pulse Rate 89 10/09/22 18:11 Respiratory Rate 20 10/09/22 18:11 Blood Pressure 135/90 H 10/09/22 18:11 Pulse Oximetry 98 10/09/22 18:11 Oxygen Delivery Method Room Air 10/09/22 18:11 Temperature 97.2 F L 10/09/22 19:53 Pulse Rate 76 10/09/22 19:53 Respiratory Rate 18 10/09/22 19:53 Blood Pressure 110/44 L 10/09/22 19:53 Pulse Oximetry 97 10/09/22 19:53 Oxygen Delivery Method Room Air 10/09/22 19:53 MDM - Nausea/Vomiting/Diarrhea MDM Narrative Medical decision making narrative: This patient arrives here with repeated vomiting with nausea symptoms. She arrives with normal vital signs and does not appear to be in any acute distress. She is currently reporting nausea symptoms but has not vomited since arriving here. I did discuss options for diagnosis and treatment and the patient states that she did take a Zofran tablet prior to arrival without relief. So an IV was established where she did receive a L of normal saline and 4 mg of Zofran. Lab studies are acquired and returned with reassuring results except for a distinct increase in her white blood cell count at 21.75. I reexamined the patient who reports some mild abdominal pain. She states that the medicines given so far did not bring much improvement. She then did receive IV doses of Reglan and Toradol. A CT scan of the abdomen and pelvis is performed and returns with no findings to explain her symptoms. Additionally urinalysis returns negative for infection. The patient now states that she is feeling much better and does not have any nausea symptoms. Her vital signs are in normal range. She is okay to be discharged home. She did receive a prescription for Reglan and Toradol. Lab Data Labs: Lab Results 10/09/22 10/09/22 Range/Units 18:40 19:50 WBC 21.75 H (4.50-11.00) K/uL RBC 4.92 (4.00-5.20) m/uL Hgb 14.4 (12.0-16.0) gm/dL Hct 42.7 (33.0-51.0) % MCV 87 (80-100) fL MCH 29 (26-34) pg MCHC 34 (32-36) gm/dL RDW Coeff of Rosa 12.4 (11.5-15.5) % Plt Count 451 H (140-440) K/uL Neut % (Auto) 84.4 H (42.0-72.0) % Lymph % (Auto) 10.8 L (20-44) % Kleberg % (Auto) 4.4 (0.0-11.0) % Eos % (Auto) 0.1 (0.0-7.0) % Baso % (Auto) 0.0 (0.0-3.0) % Neut # (Auto) 18.40 H (1.7-7.0) K/uL Lymph # (Auto) 2.30 (0.90-2.90) K/uL Kleberg # (Auto) 1.00 H (0.00-0.90) K/UL Eos # (Auto) 0.00 (0.00-0.50) K/uL Baso # (Auto) 0.00 (0.00-0.30) K/uL Abs Immat Gran (auto) 0.10 (0.00-0.30) K/uL Imm/Tot Granulo (auto) 0.3 % Sodium 137 (135-149) mmol/L Potassium 3.8 (3.6-5.1) mmol/L Chloride 103 (96-114) mmol/L Carbon Dioxide 26 (20-32) mmol/L BUN 11 (5-24) mg/dL Creatinine 0.6 (0.5-1.5) mg/dL Estimated Creat Clear 115.33 Estimated GFR 129 ml/min Glucose 107 (60-115) mg/dL Calcium 9.4 (8.4-10.6) mg/dL Urine Color Yellow (Yellow) Urine Appearance Cloudy A (Clear) Urine pH 6.0 (5.0-8.5) Ur Specific [place] 1.010 (1.000-1.030) Urine Protein Negative (Negative) Urine Glucose (UA) Negative (Negative) Urine Ketones Trace A (Negative) Urine Blood Trace-intact A (Negative) Urine Nitrite Negative (Negative) Urine Bilirubin Negative (Negative) Urine Urobilinogen 0.2 (0.2-1.0) Ur Leukocyte Esterase Trace A (Negative) Urine RBC 2-5 A (0-2) Urine WBC 2-5 (0-5) Ur Squamous Epith Cells Moderate A (None-Few) Urine Bacteria Few A (None) Imaging Data CT scan - abdomen: Radiologist's impression: No acute intra-abdominal/pelvic abnormality. Hepatic steatosis. Discharge Plan Discharge Clinical Impression: Vomiting Patient Disposition: Home, Self-Care Condition: Improved Additional Instructions: Take medication as needed and indicated. Follow up with MD or return if worsening. Prescriptions: New ketorolac 10 mg tablet 10 mg PO Q8H 5 Days Qty: 15 0RF metoclopramide HCl [Reglan] 10 mg tablet 10 mg PO Q6H PRN (Reason: nausea and vomiting) Qty: 15 0RF Follow Up/Referrals: Anitha Ojeda DO [Primary Care Provider] - Stand Alone Forms: [employer] Info Instructions
[2022-10-09] MEDS: ONDANSETRON 2 MG/ML inj 4 MG IVP (18:43)
[2022-10-09 18:46] LABS: Eosinophils Percent Auto 0.1 % (0.0-7.0); Hematocrit 42.7 % (33.0-51.0); Hemoglobin* 14.4 gm/dL (12.0-16.0); Immature Granulocytes Pct Auto 0.3 %; Lymphocytes Percent Auto 10.8 % (20-44); Mean Corpuscular HGB Conc 34 gm/dL (32-36); Mean Corpuscular Hemoglobin 29 pg (26-34); Mean Corpuscular Volume 87 fL (80-100); Monocytes Percent Auto 4.4 % (0.0-11.0); Neutrophils Percent Auto 84.4 % (42.0-72.0); Platelet Count* 451 K/uL (140-440); RDW Coefficient of Variation % 12.4 % (11.5-15.5); Red Blood Count 4.92 m/uL (4.00-5.20); White Blood Count* 21.75 K/uL (4.50-11.00)
[2022-10-09] MEDS: 0.9 % SODIUM CHLORIDE 1000 ml 1,000 ML IV (18:49)
[2022-10-09 18:50] LABS: Slide Review Reflex No
[2022-10-09 18:58] LABS: Chloride* 103 mmol/L (96-114); Potassium* 3.8 mmol/L (3.6-5.1); Sodium* 137 mmol/L (135-149)
[2022-10-09 19:00] LABS: Creatinine* 0.6 mg/dL (0.5-1.5); Est. Creatinine Clearance* 115.33; Estimated Glomerular Filt Rate 129 ml/min
[2022-10-09 19:01] LABS: Blood Urea Nitrogen* 11 mg/dL (5-24); Calcium* 9.4 mg/dL (8.4-10.6); Carbon Dioxide* 26 mmol/L (20-32); Glucose* 107 mg/dL (60-115)
--- NOTE | 2022-10-09 19:15 | CRLHL7_ITS ---
For Patients: As a result of the Century Cures Act, medical imaging exams and procedure reports are released immediately into your electronic medical record. You may view this report before your referring provider. If you have questions, please contact your health care provider. INDICATION: Abdominal pain, leukocytosis. TECHNIQUE: CT abdomen and pelvis acquired with 100 cc Omnipaque 350 IV contrast. COMPARISON: February 13, 2022. FINDINGS: Lower chest: Scattered atelectasis. Liver: Hepatic steatosis. No suspicious masses. Gallbladder and bile ducts: Unremarkable. No stones or inflammation. No biliary dilatation. Pancreas: Unremarkable. No mass or inflammation. Spleen: Unremarkable. Normal in size. No masses. Adrenal glands: Unremarkable. No nodules. Kidneys: Unremarkable. No suspicious masses, stones, or hydronephrosis. GI tract: Unremarkable. Normal in caliber. No sign of mass or inflammation. Normal appendix. Vasculature: Abdominal aorta is normal in caliber. Mesenteric arteries are patent. Lymph nodes: No lymphadenopathy. Peritoneum/Abdominal Wall: Unremarkable. No sign of mass or infiltration. No free air or significant free fluid. Pelvis: Trace free fluid in the pelvis, likely physiologic. Bones: Unremarkable for age. IMPRESSION: No acute intra-abdominal/pelvic abnormality. Hepatic steatosis. Please note that all CT scans at this facility use dose modulation, iterative reconstruction, and/or weight-based dosing when appropriate to reduce radiation dose to as low as reasonably achievable. Dictated by Jos Campos MD @ 10/09/2022 8:21:28 PM (Electronically Signed)
[2022-10-09] MEDS: METOCLOPRAMIDE HCL 5 MG/ML INJ 10 MG IV (19:31)
--- NOTE | 2022-10-09 19:46 | ED.NURSE ---
report given off to next nurse
[2022-10-09 19:53] VITALS: BP 110/44; PULSE 76; RESP 18; TEMP 36.2; O2SAT 97
[2022-10-09 19:55] LABS: Appearance Urine Cloudy (Clear); Bilirubin Urine Negative (Negative); Blood Urine Trace-intact (Negative); Color Urine Yellow (Yellow); Glucose Urine Negative (Negative); Ketones Urine Trace (Negative); Leukocyte Esterase Urine Trace (Negative); Nitrite Urine Negative (Negative); Protein Urine Negative (Negative); Urobilinogen Urine 0.2 (0.2-1.0)
[2022-10-09 20:09] LABS: Bacteria Urine Few; Squamous Epithelial Cell Urine Moderate (None-Few)
== END 2022-10-09 20:45 | disposition home or self-care (01) ==
PROVIDERS: Emergency Provider Emergency Medicine Emergency Medical Services; PCP Family Medicine
DX: R11.2 Nausea with vomiting, unspecified (principal)
CPT/HCPCS: 36415; 74177; 80048; 81001; 85025; 87086; 96374; 96375; 99283; 99284; J2405; J2765; J7030; Q9967

== ENCOUNTER 2023-02-09 17:01 | Emergency (ER) | payer MEDICAID, SELFPAY ==
[2023-02-09 17:25] VITALS: BP 116/72; PULSE 76; RESP 18; TEMP 36.5; O2SAT 100; BMI 32.9
--- NOTE | 2023-02-09 17:29 | CRLHL7_ITS ---
For Patients: As a result of the Century Cures Act, medical imaging exams and procedure reports are released immediately into your electronic medical record. You may view this report before your referring provider. If you have questions, please contact your health care provider. INDICATION: Left lower quadrant pain, positive . TECHNIQUE: Ultrasound OB pelvis transabdominal and transvaginal. Real-time bolden-scale imaging of the pelvis was performed. COMPARISON: None. FINDINGS: Intrauterine gestation: Present. Embryo present: Yes. Embryo cardiac activity: Yes. 117 beats per minute [place] rump Length: 0.4 cm. Sonographic gestational age: 6 weeks and 1 day. Sonographic estimated due date: 10/04/2023. Yolk sac: Normal. Perigestational hemorrhage: There is a right fundal subchorionic hypoechogenicity measuring 9 x 5 x 8 mm. Ovaries and adnexae: Unremarkable. No suspicious lesions or fluid collections. IMPRESSION: Single viable intrauterine with estimated gestational age of 6 weeks and 1 day, with findings compatible with a right fundal 9 x 5 x 8 mm subchorionic hemorrhage. Dictated by Segun Valdez MD @ 02/09/2023 7:22:37 PM (Electronically Signed)
--- NOTE | 2023-02-09 19:12 | ED.ABDPAIN ---
HPI - Abdominal Pain General Chief Complaint: Abdominal Pain Stated Complaint: Pos test, cramping Time Seen by Provider: 02/09/23 19:05 History of Present Illness HPI narrative: This 22-year-old female comes in reporting pain in her left lower quadrant. She found out last week that she is and apparently is at about 6 weeks gestation. This is her 1st . She has her 1st OB appointment next week. She does not report any bleeding or discharge. She states that she has had constipation and has not had a good bowel movement for more than a day. Related Data Allergies Allergy/AdvReac Type Severity Reaction Status Date / Time strawberry Allergy Difficulty Verified 10/09/22 19:32 Breathing Review of Systems Status of ROS Reports: 10 or more systems reviewed and unremarkable except as noted in History and below Narrative Constitutional: No fevers, no weight gain or loss. Eyes: No discharge. No vision changes. HENT: No congestion, no sore throat, no ear pain. Cardiovascular: No chest pain, no palpitations. Respiratory: No shortness of breath, no wheezes, no cough. Gastrointestinal: No vomiting, no diarrhea. Abdominal pain as described above. Genitourinary: No dysuria, no hematuria. Musculoskeletal: Normal range of motion. Skin: No rashes, no pruritis. Neurological: No dizziness, weakness, sensory change, speech change. Endo/Heme/Allergies: No bruising or bleeding. No polydipsia. Pysch: no suicidality, no anxiety, no insomnia. All other systems reviewed and are negative. [facility] Medical History (Updated 02/09/23 @ 19:16 by Dane Coy MD) Migraines ?G43.909 - Migraine, unspecified, not intractable, without status migrainosus (ICD-10) Family History (Updated 11/18/21 @ 09:33 by Megan Dubois MD) Other Breast cancer High blood pressure Social History (Updated 11/18/21 @ 09:34 by Megan Dubois MD) Narrative: She lives in [place]. She is working at the public [employer], and is also a student at [employer]. 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 Originally from [facility]. Doesn't smoke or use recreational drugs. Drinks alcohol socially Smoking Status: Never smoker Do you use any of these nicotine containing products: None Second hand tobacco smoke exposure: No How often do you have a drink containing alcohol: monthly or less How many standard drinks containing alcohol do you have on a typical day: 1 or 2 How often do you have six or more drinks on one occasion: Never AUDIT-C Alcohol total score: 1 Non-prescribed substance use: denies use service: No Exam Narrative: Exam Narrative: Constitutional: Well-developed, well-nourished, no acute distress. HEENT: Normocephalic, atraumatic. Neck: Normal range of motion. Nontender. Supple. Heart: Regular. No murmurs. Normal rate. Intact distal pulses. Lungs: Clear to auscultation. No chest discomfort. No wheezes, rhonchi, or rales. Abdomen: Normal bowel sounds. Nontender. No rebound tenderness. Genitalia: Deferred. Back: No midline tenderness. Normal range of motion. Extremities: Normal range of motion. No injury. Skin: Intact. No rash. Warm. No erythema or pallor. Neurologic: No altered sensation. No weakness. Alert and oriented. Psychiatric: No suicidality. No anxiety or depression. No insomnia. Nursing notes and vitals signs are reviewed. Const: Vital Signs, click to edit/add: Vital Signs - 24 hr 02/09/23 17:25 Temperature 97.7 F Pulse Rate [Pulse Oximeter] 76 Respiratory Rate 18 Blood Pressure [Ri ght Upper Arm] 116/72 Pulse Oximetry 100 Oxygen Delivery Me thod Room Air Course Vital Signs Vital signs: Initial Vital Signs Temperature 97.7 F 02/09/23 17:25 Temperature Source Temporal Artery Scan 02/09/23 17:25 Pulse Rate 76 02/09/23 17:25 Pulse Rhythm Regular 02/09/23 17:25 Respiratory Rate 18 02/09/23 17:25 Blood Pressure 116/72 02/09/23 17:25 Blood Pressure Mean 86 02/09/23 17:25 Blood Pressure Position Sitting 02/09/23 17:25 Pulse Oximetry 100 02/09/23 17:25 Oxygen Delivery Method Room Air 02/09/23 17:25 Vital Signs Temperature 97.7 F 02/09/23 17:25 Pulse Rate 76 02/09/23 17:25 Respiratory Rate 18 02/09/23 17:25 Blood Pressure 116/72 02/09/23 17:25 Pulse Oximetry 100 02/09/23 17:25 Oxygen Delivery Method Room Air 02/09/23 17:25 Temperature 97.7 F 02/09/23 17:25 Pulse Rate 76 02/09/23 17:25 Respiratory Rate 18 02/09/23 17:25 Blood Pressure 116/72 02/09/23 17:25 Pulse Oximetry 100 02/09/23 17:25 Oxygen Delivery Method Room Air 02/09/23 17:25 MDM - Abdominal Pain MDM Narrative Medical decision making narrative: This patient comes in reporting left lower quadrant abdominal pain since yesterday. She is about 6 weeks and has not had any vaginal discharge or bleeding. She does report some constipation. Ultrasound today shows normal intrauterine . There are no other abnormal findings. On exam she has normal vital signs and no sign of rebound tenderness or altered bowel sounds. The patient is satisfied with the ultrasound results. She is okay to be discharged home. I did recommend [id number] medicines for attending to constipation. She has a follow-up appointment next week for her 1st OB appointment. Discharge Plan Discharge Clinical Impression: , Abdominal pain Patient Disposition: Home, Self-Care Condition: Stable Additional Instructions: Continue current plans. Use [id number] medicines as needed and directed for constipation. Follow up with MD as scheduled or return if worsening. Follow Up/Referrals: Anitha Ojeda DO [Primary Care Provider] - Stand Alone Forms: [employer] Info Instructions
[2023-02-09 19:22] VITALS: BP 116/72; PULSE 76; RESP 18; TEMP 36.5
== END 2023-02-09 19:37 | disposition home or self-care (01) ==
LOC: ED 19:29
PROVIDERS: Emergency Provider Emergency Medicine Emergency Medical Services; PCP Family Medicine
DX: R10.32 Left lower quadrant pain (principal); Z3A.01 Less than 8 weeks gestation of pregnancy
CPT/HCPCS: 36415; 76801; 76817; 84702; 99283; 99284

== ENCOUNTER 2023-02-16 13:54 | Outpatient (CLI) | payer MEDICAID, SELFPAY ==
--- NOTE | 2023-02-16 14:00 | CRLHL7_ITS ---
For Patients: As a result of the Century Cures Act, medical imaging exams and procedure reports are released immediately into your electronic medical record. You may view this report before your referring provider. If you have questions, please contact your health care provider. INDICATION: Follow-up viability COMPARISON: 02/09/2023 TECHNIQUE: Real-time bolden-scale imaging of the pelvis was performed. FINDINGS: Sonographic imaging demonstrates a single living intrauterine gestation. The embryo demonstrates a regular cardiac rate measuring 150 beats per minute. The embryo`s crown-rump length measurement of 1.2 cm corresponds to a gestational age of 7 weeks 3 days with a sonographic due date of 09/1923. There is a normal-appearing yolk sac. There are no gross abnormalities noted within the embryo at this early state of development. The gestational sac has a normal appearance. There is a mid right perigestational hemorrhage measuring 1.4 x 0.6 x 1.2 cm and a right fundal perigestational hemorrhage measuring 1.1 x 0.4 x 0.9 cm. The amount of fluid within the sac appears appropriate for gestational age. The cervix is closed. The myometrium appears normal. The ovaries are not visualized. There are no suspicious fluid collections noted in the cul-de-sac. IMPRESSION: Single living intrauterine with sonographic gestational age 7 weeks 3 days and sonographic due date 09/1923. The IUP is located within the right horn of a possible septate uterus. Two right-sided subchorionic hemorrhages measuring 1.4 x 0.6 x 1.2 cm and 1.1 x 0.4 x 0.9 cm. Dictated by Ayo Anglin MD @ 02/19/2023 12:18:37 PM (Electronically Signed)
== END 2023-02-16 13:55 | disposition home or self-care (01) ==
PROVIDERS: Visit Provider Obstetrics & Gynecology
DX: Z34.91 Encounter for supervision of normal pregnancy, unspecified, first trimester (principal); O20.9 Hemorrhage in early pregnancy, unspecified; Z3A.01 Less than 8 weeks gestation of pregnancy
CPT/HCPCS: 76817

== ENCOUNTER 2023-02-16 15:03 | Outpatient (CLI) | payer MEDICAID, SELFPAY ==
[2023-02-16 20:56] LABS: GC DNA Amplified* NOT DETECTED (No Detected)
[2023-02-16 21:23] LABS: Chlamydia DNA Amplified* DETECTED (No Detected)
== END 2023-02-16 15:04 | disposition home or self-care (01) ==
PROVIDERS: Visit Provider Advanced Practice Midwife
DX: Z34.91 Encounter for supervision of normal pregnancy, unspecified, first trimester (principal)
CPT/HCPCS: 86592; 86703; 86704; 86706; 86762; 86787; 86803; 86850; 86900; 86901; 87086; 87340; 87491; 87591

== ENCOUNTER 2023-03-17 16:30 | Outpatient (CLI) | payer MEDICAID, SELFPAY | END 2023-03-17 16:31 | disposition home or self-care (01) | LOC: NFLDREF 17:03 | PROVIDERS: Visit Provider Advanced Practice Midwife | DX: Z34.91 Encounter for supervision of normal pregnancy, unspecified, first trimester (principal); A74.9 Chlamydial infection, unspecified; Z3A.11 11 weeks gestation of pregnancy | CPT/HCPCS: 87491; 87591 ==

== ENCOUNTER 2023-04-14 16:31 | Outpatient (CLI) | payer MEDICAID, SELFPAY ==
--- OUTSIDE RECORDS SUMMARY | 2023-04-14 16:35 | XMS_ITS | Clinical Summary ---
Author Name Unknown Organization [facility] Address [place], [place] [address] Care Team Providers Care Public Works Director Name Role Phone Anitha Ojeda DO Primary Care Provider [phone] Allergies Active Allergy Reactions Criticality Noted Date Comments [place] Shortness Of Breath,Rash 01/03/2020 Medications Medication Sig Dispensed Refills Start Date End Date Status levonorgestrel-ethinyl estrad, 0.1mg-20mcg, (ALESSE-28) 0.1-20 mg-mcg tabletIndications:Oral contraception initial prescription Take 1 Tablet by mouth once daily. 90 Tablet 3 08/28/2021 Active dicyclomine (BENTYL) 20 mg tabletIndications:Colit is,Abdominal cramping Take 1 Tablet (20 mg) by mouth 4 times daily if needed (abdominal cramping). 30 Tablet 0 02/18/2022 Active Active Problems Problem Noted Date Diagnosed Date Migraine syndrome 02/07/2020 Leukocytosis 02/07/2020 Immunizations Name Administration Dates Next Due COVID-19 vaccine (Moderna 10 0mcg/0.5mL) PF, MDV 05/14/2020,04/16/2020 HPV 9 (Gardasil 9) 12/11/2021,07/11/2021, 022 MMR 07/19/2019 Tdap 07/19/2019 Social History Tobacco Use Types Packs/Day Years Used Date Smoking Tobacco: Never Smokeless Tobacco: Never Tobacco Cessation:Counseling Given: Yes Alcohol Use Standard Drinks/Week Comments Never 0 (1 standard drink = 0.6 oz pur e alcohol) PHQ-2 Answer Date Recorded PHQ-2 TOTAL SCORE 0 05/20/2021 Social Connections Answer Date Recorded Frequency of Communication with Friends and Fami ly Not on file 07/14/2022 Financial Resource Strain Answer Date R ecorded Difficulty of Paying Living Expenses 3 07/11/2021 Difficulty of Paying Living Expenses Not on file 07/11/2021 Food Insecurity Answer Date Recorded Worried About Running Out of Food in the Last Ye ar 1 07/11/2021 Transportation Needs Answer Date Record ed Lack of Transportation (Medical) 1 07/11/2021 Housing Stability Answer Date Recorded Unable to Pay for Housing in the Last Year 1 07/11/2021 Sex and Gender Information Value Date Recorded Sex Assigned at Not on file Gender Identity Not on file Sexual Orientation Not on file Obstetrics History Last Filed Vital Signs Vital Sign Reading Time Taken Comments Blood Pressure 121/78 02/18/2022 9:36 AM PIE BOTTOMER Pulse 70 02/18/2022 9:36 AM PIE BOTTOMER Temperature 37.1 ??C (98.8 ??F) 09/30/2021 1:43 PM CD T Respiratory Rate 14 12/21/2020 8:12 AM CDT Oxygen Saturation 99% 02/18/2022 9:36 AM PIE BOTTOMER Inhaled Oxygen Concentration - - Weight 82.6 kg (182 lb) 02/18/2022 9:36 AM PIE BOTTOMER Height 157 cm (5' 1.81) 07/11/2021 8:31 AM CDT Body Mass Index 33.49 07/11/2021 8:31 AM CDT Plan of Treatment Health Maintenance Due Date Last Done Comments Hepatitis C screening for age 18-79 08/21/2017 Chlamydia for age 16-24 05/20/2022 05/20/2021 Depression screening for age 12+ 05/20/2022 05/20/2021, 02/21/2020 BMI (ht and wt on same day) for age 18+ 07/11/2022 07/11/2021, 05/20/2021, 08/08/2020, Additional history exists COVID-19 vaccine series ( season) 2022 05/14/2020, 04/16/2020 Influenza for age 9-49 11/14/2022 Pap test for age 21-65 09/12/2025 , 09/12/2022, 11/13/2021 Tetanus booster 07/18/2029 07/19/2019 Tdap Completed 07/19/2019 HIV for age 15-65 Completed 06/29/2020 HPV series for age 9-26 Completed 12/12/19, 07/11/2021, 05/20/2021 Pneumococcal series for age 6-64 Aged Out No longer eligible based on patient's age to complete this topic Care Teams Public Works Director Relationship Specialty Start Date End Date Anitha Ojeda DO [address] [place] [address] PCP - General Family Practice 07/05/20
== END 2023-04-14 16:32 | disposition home or self-care (01) ==
LOC: NFLDREF 16:33
PROVIDERS: Visit Provider Advanced Practice Midwife
DX: Z34.92 Encounter for supervision of normal pregnancy, unspecified, second trimester (principal)
CPT/HCPCS: 81511

== ENCOUNTER 2023-06-30 14:11 | Outpatient (CLI) | payer MEDICAID, SELFPAY ==
--- OUTSIDE RECORDS SUMMARY | 2023-06-30 14:14 | XMS_ITS | Encounter Summary ---
Author Name Unknown Organization [facility] Address [address] [facility] [address] Care Team Providers Care Mainspring Strip Inspector Name Role Phone No Ref-Primary, Physician Primary Care Provider Reason for Referral * Diagnostic Imaging Ultrasound (Routine) - Pending Review Specialty Diagnoses / Procedures Referred By Contac t Referred To Contact Radiology. Diagnoses Congenital heart defect Procedures [facility] US Comprehensive Single F/U Swati Hurst MD [address] [place] [address] Referral ID Status Reason Start Date Expiration Date V isits Requested Visits Authorized [id number] Pending Review 06/29/2023 06/28/2024 1 1 Reason for Visit * Reason Comments Ultrasound RL2-CHD Encounter Details Date Type Department Care Team (Late st Contact Info) Description 06/29/2023 2:45 PM CDT Office Visit [facility] [place] [address] [facility] [address] [place] [address] Swati Hurst MD [address] [place] [address] Congenital heart defect (Primary Dx) Social History Tobacco Use Types Packs/Day Years Used Date Smoking Tobacco: Never Assessed Adolescent Education Answer Date Record ed Getting School Help Needed Not on file 03/18 Estimated Date of Delivery Comme nts Yes 10/02/2023 Based on Ultraso und Sex and Gender Information Value Date Recorded Sex Assigned at Not on file Gender Identity Not on file Sexual Orientation Not on file documented as of this encounter Progress Notes * Swati Hurst MD - 06/29/2023 2:45 PM CDT Please see Imaging tab under Chart Review for details of today's visit. Swati Hurst documented in this encounter Nursing Notes * Shirley Heller, RN - 06/29/2023 2:45 PM CDT Patient presents to [facility] for RL2 at 26w3d due to CHD. Positive movement. Denies LOF, vaginal bleeding or cramping/contractions. SBAR given to [facility] , see their note in Epic. documented in this encounter Plan of Treatment Upcoming Encounters Date Type Department Care Team (Late st Contact Info) Description 07/14/2023 8:00 AM CDT Appointment [facility] [address] [place] [address] 07/31/2023 2:15 PM CDT Appointment [facility] [place] [address] [facility] [facility] [address] [place] [phone] Swati Hurst MD [address] [facility] [address] [place] [address] 07/31/2023 2:45 PM CDT Office Visit [facility] [place] [address] [facility] [address] [place] [phone] Swati Hurst MD [address] [place], [place] [address] Scheduled Orders Name Type Priority Associated Diagnoses Orde r Schedule [facility] US Comprehensive Single F/U Imaging Routine Congenital heart defect Expected: 07/27/2023 (Approximate), Expires: 06/28/2024 documented as of this encounter Visit Diagnoses Diagnosis Congenital heart defect- Primary Unspecified congenital anomaly of heart documented in this encounter Care Teams Mainspring Strip Inspector Relationship Specialty Start Date End Date No Ref-Primary, Physician PCP - General 05/08/23 documented as of this encounter
--- OUTSIDE RECORDS SUMMARY | 2023-06-30 14:14 | XMS_ITS | Encounter Summary ---
Author Name Unknown Organization [facility] Address [address] [facility] [place] [address] Care Team Providers Care Car Mover Name Role Phone No Ref-Primary, Physician Primary Care Provider Reason for Referral * Diagnostic Imaging Ultrasound (Routine) - Pending Review Specialty Diagnoses / Procedures [facility] Ref[facility] To Contact Radiology. Diagnoses abnormality affecting management of mother, single or unspecified fetus Procedures [facility] US Comprehensive Single F/U Swati Hurst MD [address] [place] [address] Referral ID Status Reason Start Date Expiration Date V isits Requested Visits Authorized [id number] Pending Review 06/01/2023 05/31/2024 1 1 Reason for Visit * Diagnostic Imaging Ultrasound (Routine) - Pending Review Specialty Diagnoses / Procedures [facility] Referred To Contact Radiology. Diagnoses abnormality affecting management of mother, single or unspecified fetus Procedures [facility] US Comprehensive Single F/U Swati Hurst MD [address] [facility] [address] [place] [address] Referral ID Status Reason Start Date Expiration Date V isits Requested Visits Authorized [id number] Pending Review 06/01/2023 05/31/2024 1 1 Encounter Details Date Type Department Care Team (Latest Contact Info) Description 06/29/2023 2:15 PM CDT - 06/29/2023 11:59 PM CDT Hospital Encounter [facility] [place] [address] [place] [phone] Swati Hurst MD [address] [address] abnormality affecting management of mother, single or unspecified fetus Discharge Disposition: Home or Self Care Social History Tobacco Use Types Packs/Day Years [...] on file documented as of this encounter Plan of Treatment Upcoming Encounters Date Type Department Care Team (Late st Contact Info) Description 07/14/2023 8:00 AM CDT Appointment [facility] [address] [place] [address] 07/31/2023 2:15 PM CDT Appointment [facility] [address] [place] [phone] Swati Hurst MD [address] [address] 07/31/2023 2:45 PM CDT Office Visit [facility] [address] [place] [phone] Swati Hurst MD [address] [facility] [facility] [facility] [address] [place], [place] [phone] documented as of this encounter Procedures Procedure Name Priority Date/Time Associated Diagnosis Comments [facility] COMPREHENSIVE SINGLE F/U Routine 06/29/2023 2:58 PM CDT abnormality affecting management of mother, single or unspecified fetus documented in this encounter Results * [facility] Comprehensive Single F/U (06/29/2023 2:58 PM CDT) Anatomical Region Laterality Modality Ultrasound 06/29/2023 2:20 PM CDT Swati Hurst MD IMG [facility]FM US ORDERABLE S documented in this encounter Visit Diagnoses Diagnosis abnormality affecting management of mother, single or unspecified fetus documented in this encounter Care Teams Car Mover Relationship Specialty Start Date End Date No Ref-Primary, Physician PCP - General 05/08/23 documented as of this encounter
--- OUTSIDE RECORDS SUMMARY | 2023-06-30 14:14 | XMS_ITS | Encounter Summary ---
Author Name Unknown Organization [facility] Address [address] [facility] [place] [address] Care Team Providers Care Refrigeration Technician Name Role Phone No Ref-Primary, Physician Primary Care Provider Encounter Details Date Type Department Care Team (Latest Contact Info) Description 06/29/2023 Travel Social History Tobacco Use Types Packs/Day Years [...] Info) Description 07/14/2023 8:00 AM CDT Appointment [facility] [address] [place] [phone] 07/31/2023 2:15 PM CDT Appointment [facility] M[facility] [address] [place] [phone] Swati Hurst MD [address] [facility] [address] [facility] [address] [place] [address] 07/31/2023 2:45 PM CDT Office Visit [facility] [address] [place] [phone] Swati Hurst MD [address] [facility] [address] [place] [address] documented as of this encounter Visit Diagnoses Not on filedocumented in this encounter Care Teams Refrigeration Technician Relationship Specialty Start Date End Date No Ref-Primary, Physician PCP - General 05/08/23 documented as of this encounter
--- OUTSIDE RECORDS SUMMARY | 2023-06-30 14:14 | XMS_ITS | Referral Summary ---
Author Name Unknown Organization [facility] Address [address] [facility] [address] Care Team Providers Care Wireless Consultant Name Role Phone No Ref-Primary, Physician Primary Care Provider Encounters Date Type Department Care Team Description 06/29/2023 Travel 06/29/2023 2:45 PM CDT Office Visit [facility] [address] [place] [phone] Swati Hurst MD Congenital heart defect (Primary Dx) 06/29/2023 2:15 PM CDT - 06/29/2023 11:59 PM CDT Hospital Encounter [facility] Medicine [facility] [address] [place] [phone] Swati Hurst MD abnormality affecting management of mother, single or unspecified fetus Discharge Disposition: Home or Self Care 06/01/2023 Telephone [facility] [address] [place] [address] Kody Davey GC 06/01/2023 Travel 06/01/2023 8:30 AM CDT Office Visit [facility] Medicine [facility] [address] [place] [phone] Suresh Padron MD Burn, Martina, MD abnormality affecting management of mother, single or unspecified fetus (Primary Dx) 06/01/2023 7:52 AM CDT - 06/01/2023 11:59 PM CDT Hospital Encounter [facility] [address] [facility] [address] [place] [phone] Suresh Padron MD Burn, Martina, MD complicated by congenital heart disease, single or unspecified fetus Discharge Disposition: Home or Self Care 05/21/2023 MyC Medical Advice [facility] [address] [place] [phone] Kym Little RN 05/20/2023 Office Visit [facility] [address] [place] [phone] Yifan Aponte MD Anomaly of heart of fetus affecting , antepartum, single or unspecified fetus (Primary Dx) 05/20/2023 Travel 05/20/2023 7:55 AM APPEALS ASSISTANT - 05/20/2023 11:59 PM APPEALS ASSISTANT Hospital Encounter [facility] [address] [place] [phone] Suresh Padron MD complicated by congenital heart disease, single or unspecified fetus Discharge Disposition: Home or Self Care 05/12/2023 Documentation Only [facility] [address] [place] [address] Kody Davey GC 05/08/2023 Medical Correspondence [facility] [address] [place] [phone] Scan, Non-Provider 05/08/2023 3:00 PM APPEALS ASSISTANT Office Visit [facility] [address] [facility] [address] [place] [phone] Suresh Padron MD Deffer, Christopher A, GC Abnormal ultrasound; abnormality affecting management of mother, single or unspecified fetus; Encounter for procreative genetic counseling and testing 05/08/2023 Orders Only [facility] [address] [place] [address] Kody Davey GC Abnormal ultrasound (Primary Dx); abnormality affecting management of mother, single or unspecified fetus; Encounter for procreative genetic counseling and testing 05/08/2023 Travel 05/08/2023 2:45 PM APPEALS ASSISTANT Office Visit [facility] [place] [address] [facility] [address] [place] [phone] Francia Epps APRN CNM Yamamura, Yasuko, MD complicated by congenital heart disease, single or unspecified fetus (Primary Dx) 05/08/2023 2:05 PM APPEALS ASSISTANT - 05/08/2023 11:59 PM APPEALS ASSISTANT Hospital Encounter [facility] [place] [address] [facility] [address] [place] [phone] Francia Epps APRN CNM Yamamura, Yasuko, MD related condition, antepartum Discharge Disposition: Home or Self Care 05/01/[address] [facility] [place] [address] [facility] [address] [place] [phone] Keysha Garcia RN Ultrasound (L2-Covid + 1st trimester) from Last 3 Months Social History Tobacco Use Types Packs/Day Years Used Date Smoking Tobacco: Never Assessed Adolescent Education Answer Date Record ed Getting School Help Needed Not on file 03/18 Estimated Date of Delivery Comme nts Yes 10/02/2023 Based on Ultraso und Sex and Gender Information Value Date Recorded Sex Assigned at Not on file Gender Identity Not on file Sexual Orientation Not on file Plan of Treatment Upcoming Encounters Date Type Department Care Team (Late st Contact Info) Description 07/14/2023 8:00 AM CDT Appointment [facility] [address] [place] [phone] 07/31/2023 2:[address] [facility] [place] [address] [facility] [address] [place] [phone] Swati Hurst MD [address] [place], [place] [address] 07/31/2023 2:45 PM CDT Office Visit [facility] [place] [address] [facility] [address] [place] [phone] Swati Hurst MD [address] [place], [place] [phone] Procedures Procedure Name Priority Date/Time Associated Diagnosis Comments MF US COMPREHENSIVE SINGLE F/U Routine 06/29/2023 2:58 PM CDT abnormality affecting management of mother, single or unspecified fetus MF US COMPREHENSIVE SINGLE F/U Routine 06/01/2023 8:34 AM CDT complicated by congenital heart disease, single or unspecified fetus ECHO COMPLETE Routine 05/20/2023 9 :52 AM APPEALS ASSISTANT complicated by congenital heart disease, single or unspecified fetus [facility] US COMPREHENSIVE SINGLE Routine 05/08/2023 3:10 PM APPEALS ASSISTANT related condition, antepartum ZZC ELECTROCARDIOGRAM, COMP W/READ Routine 05/26/2000 Preop Exam Other Specified HCL PAP SMEAR Routine 08/08/1998 1:18 PM CDT Gynecologic Examination from Last 3 Months or Most Recently Relevant to Health Maintenance Results * [facility] US Comprehensive Single F/U (06/29/2023 2:58 PM CDT) Only the most recent of2 resultswithin the time period is included. Anatomical Region Laterality Modality Ultrasound 06/29/2023 2:20 PM CDT Swati Hurst MD IMG [facility] US ORDERABLE S * ECHO COMPLETE (05/20/2023 9:52 AM APPEALS ASSISTANT) Anatomical Region Laterality Modality Echocardiography 05/20/2023 8:11 AM APPEALS ASSISTANT Narrative 05/20/2023 10:23 AM APPEALS ASSISTANT [id number] [facility] [id number]^SURESH ? Study ID: [id number] ?[facility] ?[facility] ?[address] ?[place] [address] ? Echocardiogram Name: ROSEMARY NARAYAN Study Date: 05/20/2023 08:11 AM ? Patient Location: [facility] Gender: Female ?Patient Class: Outpatient : 2000 ? Age: 22 yrs Ordering Provider: SURESH PADRON Referring Provider: SURESH PADRON Performed By: Mauricio Smith RDCS Reading Physician: Yifan Aponte MD Reason For Study: complicated by congenital heart disease, single Data: Number of fetuses: This is a law gestation. Due date: 10/01/2023. Gestational age: 20w5d. Specific Indication: echocardiogram performed for fetus with suspected congenital heart disease. CONCLUSIONS Normal cardiac anatomy. 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 The mitral valve annulus Z-score is -2.7. The aortic valve annulus measures normal (Z-score -1.0). There is normal flow across the aortic valve. The left ventricle is apex forming with normal size and systolic function. Normal right ventricular size and systolic function. There is mild hypoplasia of the distal aortic arch and aortic isthmus (Z-score -2.2). heart rate is regular at 145 bpm. The abnormal results of the echocardiogram were explained to the patient. Please refer to consultation note for details. Technical Information: A complete two dimensional, MMODE, spectral and color Doppler echocardiogram is performed. The study quality is reasonable. position and segmental anatomy: The fetus in breech position. The heart is in left chest. The cardiac apex points towards the left. There is normal atrial arrangement, with concordant atrioventricular and ventriculoarterial connections. The abdominal aorta is to the left of the spine. There is a left sided stomach. Systemic and pulmonary veins: The systemic venous return is normal. At least one right and one left pulmonary veins are seen returning to the left atrium. Atria and atrial septum: Normal right atrial size. The left atrium is normal in size. The flap of the foramen ovale opens in to the left atrium. There is laminar oytna-jh-zkbh shunting across the foramen ovale. Atrioventricular valves: The tricuspid valve is normal in appearance and motion. There is no tricuspid insufficiency. The mitral valve annulus Z-score is -2.7. 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 The mitral valve annulus measures 3.4 mm. There is no mitral valve insufficiency. Ventricles and ventricular septum: Normal right ventricular size. Normal right ventricular systolic function. Normal left ventricular size. Normal left ventricular systolic function. No obvious ventricular level shunting. Outflows tracts: Normal great artery relationship. The right ventricular outflow tract is normal in caliber. The pulmonary valve has normal appearance and motion. There is normal flow across the pulmonary valve. There is unobstructed flow through the left ventricular outflow tract. The aortic valve has normal appearance and motion. There is normal flow across the aortic valve. The aortic valve annulus Z-score is -1.0. Great arteries: The main pulmonary artery has normal appearance. There is unobstructed flow in the main pulmonary artery. The pulmonary artery bifurcation is normal. There is unobstructed flow in both branch pulmonary arteries. The ductus arteriosus has normal appearance with normal antegrade flow. There is unobstructed antegrade flow in the ascending aorta. There is unobstructed antegrade flow in the aortic arch. The aortic arch is not well visualized in this study. 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 Effusions and extracardiac findings: No pericardial effusion. No hydrops. cardiac rhythm: heart rate is regular at 145 bpm. Doppler: There is normal flow in the ductus venosus, umbilical artery and umbilical vein. echocardiography cannot rule out small atrial or ventricular septal defects, persistent ductus arteriosus, mild coarctation of the aorta, partial anomalous pulmonary venous return, minor anatomic valve anomalies or coronary artery anomalies. Reading Physician: ?Yifan Aponte MD 05/20/2023 10:23 AM Procedure Note Yifan Aponte MD - 05/20/2023 [id number]^[id number]^SURESH Study ID:[id number] [facility] [place] [address] Echocardiogram Name: ROSEMARY NARAYAN Study Date: 05/20/2023 08:11 AM Patient Location: [facility] Gender: Female Patient Class:Outpatient : 2000 Age: 22 yrs Ordering Provider: SURESH PADRON Referring Provider: SURESH PADRON Performed By: Mauricio Smith RDCS Reading Physician: Yifan Aponte MD Reason For Study: complicated by congenital heartdisease, single Data: Number of fetuses: This is a law gestation. Duedate: 10/01/2023. Gestational age: 20w5d. Specific Indication: echocardiogram performed for fetus with suspected congenital heart disease. CONCLUSIONS Normal cardiac anatomy. Mild hypoplasia of the mitral valve annulusand aortic isthmus. The mitral valve annulus Z-score is -2.7. The aorticvalve annulus measures normal (Z-score -1.0). There is normal flow across theaortic valve. The left ventricle is apex forming with normal size and systolic function. Normal right ventricular size and systolic function. There ismild hypoplasia of the distal aortic arch and aortic isthmus (Z-score -2.2). heart rate is regular at 145 bpm. The abnormal results of the echocardiogram were explained to the patient. Please refer to consultation note for details. Technical Information: A complete two dimensional, MMODE, spectral and color Doppler echocardiogram is performed. The study quality is reasonable. position and segmental anatomy: The fetus in breech position. The heart is in left chest. The cardiacapex points towards the left. There is normal atrial arrangement, withconcordant atrioventricular and ventriculoarterial connections. The abdominal aortais to the left of the spine. There is a left sided stomach. Systemic and pulmonary veins: The systemic venous return is normal. At least one right and one left pulmonary veins are seen returning to the left atrium. Atria and atrial septum: Normal right atrial size. The left atrium is normal in size. The flap ofthe foramen ovale opens in to the left atrium. There is uphwrbhammdu-wv-sehk shunting across the foramen ovale. Atrioventricular valves: The tricuspid valve is normal in appearance and motion. There is notricuspid insufficiency. The mitral valve annulus Z-score is -2.7. The mitralvalve annulus is hypoplastic. The mitral valve annulus measures 3.4 mm. There isno mitral valve insufficiency. Ventricles and ventricular septum: Normal right ventricular size. Normal right ventricular systolicfunction. Normal left ventricular size. Normal left ventricular systolic function.No obvious ventricular level shunting. Outflows tracts: Normal great artery relationship. The right ventricular outflow tract is normal in caliber. The pulmonary valve has normal appearance and motion.There is normal flow across the pulmonary valve. There is unobstructed flowthrough the left ventricular outflow tract. The aortic valve has normal appearanceand motion. There is normal flow across the aortic valve. The aortic valveannulus Z-score is -1.0. Great arteries: The main pulmonary artery has normal appearance. There is unobstructedflow in the main pulmonary artery. The pulmonary artery bifurcation is normal.There is unobstructed flow in both branch pulmonary arteries. The ductusarteriosus has normal appearance with normal antegrade flow. There is unobstructed antegrade flow in the ascending aorta. There is unobstructed antegradeflow in the aortic arch. The aortic arch is not well visualized in this study.There is hypoplasia of the distal aortic arch and isthmus. Effusions and extracardiac findings: No pericardial effusion. No hydrops. cardiac rhythm: heart rate is regular at 145 bpm. Doppler: There is normal flow in the ductus venosus, umbilical artery andumbilical vein. echocardiography cannot rule out small atrial or ventricularseptal defects, persistent ductus arteriosus, mild coarctation of the aorta,partial anomalous pulmonary venous return, minor anatomic valve anomalies orcoronary artery anomalies. Reading Physician: Yifan Aponte MD 05/20/2023 10:23 AM Suresh Padron MD CV PEDS ECHO ORDERAB LES * MFM US Comprehensive Single (05/08/2023 3:10 PM APPEALS ASSISTANT) Anatomical Region Laterality Modality Ultrasound 05/08/2023 1:57 PM APPEALS ASSISTANT Impressions 05/08/2023 7:13 PM APPEALS ASSISTANT IMPRESSION ----- 1) Law intrauterine at 19w 0d gestational age. 2) A CHD is suspected with a small LVOT and small aortic arch in 3 vessel view. There is ventricular size discrepancy with the left ventricle being apex forming, but smaller than the right ventricle. The aortic valve was difficult to visualize as was the aortic arch. Otherwise, none of the anomalies commonly detected by ultrasound were evident in the detailed anatomic survey described above, although evaluation of anatomy was suboptimal as noted above. 3) Growth parameters and estimated weight were consistent with an appropriate for gestation age pattern of growth. 4) The amniotic fluid volume appeared normal. Narrative 05/08/2023 7:13 PM APPEALS ASSISTANT ?Comprehensive ----- Pat. Name: ROSEMARY NARAYAN ? Study Date: ??05/08/2023 1:57pm Pat. NO: ??[id number] ?Referring ??MD: FRANCIA EPPS Site: ??[facility] ? Distance Learning Coordinator: Bettie Bernstein RDMS : ??2000 ?Age: ?? 22 ----- INDICATION ----- Covid In (1st trimester) METHOD ----- Transabdominal ultrasound examination. View: Suboptimal view: limited by maternal body habitus and position ----- Law . Number of fetuses: 1 DATING ----- ? Date ?Details ?Gest. age ?JAYE LMP ?12/15/2022 ?Cycle: irregular cycle ? 20 w + 4 d ? 09/21/2023 Prior assessment ? 02/16/2023 ? GA: 7 w + 3 d ?19 w + 0 d ? 10/02/2023 U/S ? 05/08/2023 ? based upon AC, BPD, Femur, HC ?18 w + 3 d ? 10/06/2023 Assigned dating ?Dating performed on 05/08/2023, based on the prior assessment (on 02/16/2023) ?19 w + 0 d ? 10/02/2023 GENERAL EVALUATION ----- Cardiac activity present. FHR 149 bpm. movements present. Presentation breech. Placenta posterior, no previa > 2 cm from internal os . Umbilical cord Cord vessels: 3 vessel cord. Insertion site: normal insertion. Amniotic fluid Amount of AF: normal. MVP 4.0 cm. BIOMETRY ----- Main Biometry: BPD ?38.6 ?mm ? 17w 5d ?Hadlock OFD ?55.9 ?mm ? 18w 3d ?Nicolaides HC ?152.4 ?mm ?18w 2d ?Hadlock Cerebellum tr ?18.9 ? mm ?18w 3d ?Nicolaides AC ?141.0 ?mm ?19w 3d ?62% ?Hadlock Femur ?27.4 ? mm ?18w 3d ?Hadlock Humerus ?26.5 ?mm ? 18w 3d ?Ana Weight Calculation: EFW ? 261 ? g ? 36% ?Hadlock EFW (lb,oz) ? 0 lb 9 ?oz EFW by ?Hadlock ([id number]) Head / Face / Neck Biometry: Line Dancer ? 5.6 ? mm CM ?5.6 ? mm Nasal bone ? 6.1 ? mm Nuchal fold ? 4.5 ? mm ANATOMY ----- The following structures appear abnormal: Heart / Thorax ?4-chamber view: Left side of the heart is small . LVOT view: Small, narrow aorta . The following structures appear normal: Head / Neck ? Cranium. Head size. Head shape. Lateral ventricles. Choroid plexus. Midline falx. Cavum septi pellucidi. Cerebellum. Cisterna magna. ? Parenchyma. Thalami. Vermis. ? Neck. Nuchal fold. Face ? Lips. Profile. Nose. Maxilla. Mandible. Orbits. Lens. Heart / Thorax ?RVOT view. ? Right lung. Left lung. Diaphragm. Abdomen ? Abdominal wall. Cord insertion. Stomach. Kidneys. Bladder. Liver. Bowel. Genitals. Spine ?Cervical spine. Thoracic spine. Lumbar spine. Sacral spine. Extremities / Skeleton ?Right arm. Right hand. Left arm. Left hand. Right leg. Right foot. Left leg. Left foot. Gender: male. ECHOCARDIOGRAM ----- 2D Echo (Qualitatively): Situs ?situs solitus (normal) Cardiac position ?levocardia (normal) Cardiac size ?normal (approx. 1/3 of thoracic area) Cardiac Rhythm ?regular (normal) 4-chamber view ? abnormal, Left side of the heart is small LVOT view ? abnormal, Small, narrow aorta RVOT view ?normal 3-vessel view ? abnormal, Aorta is small compared to the pulmonary artery and the superior vena cava 2-oynzvx-ftmglav view ? abnormal, Aorta is small compared to the pulmonary artery Aortic arch view ? suboptimal Ductal arch view ?suboptimal Bicaval view ?suboptimal SVC ? suboptimal IVC ?suboptimal 2D and M-Mode Measurements: Cardiac Chambers 2D Mode: TV annulus diast ? 4.1 ? mm MV annulus diast ?3.6 ? mm AoV annulus syst ? 2.1 ?mm MV annulus diast / TV ? 0.88 annulus diast Heart Z-Scores: ?Z- FL ?Z- BPD ? Z- GA ? Zscore by TV annulus diast ? 4.1 ? mm ?-1.11 ? -0.36 ?- 1.64 ?Sandeep MV annulus diast ?3.6 ? mm ?-2.66 ?-1.84 ? - 2.93 ? Sandeep AoV annulus syst ? 2.1 ? mm ? -1.73 ?-0.89 ?- 2.03 ?Hopkins MATERNAL STRUCTURES ----- Cervix ?Visualized ? Appearance: Appears Closed ? Approach - Transabdominal: Cervical length 49.5 mm Right Ovary ?Visualized Left Ovary ?Visualized RECOMMENDATION ----- We discussed the findings on today's ultrasound with the patient. 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 The left ventricle is apex forming, which is reassuring, but I suspect that there is coarctation or hypoplasia of aortic arch, or aortic stenosis as the LVOT appears narrowed and the 3 vessel view is abnormal. We will plan to coordinate a echo to further evaluate the cardiac anatomy. We also reviewed the association with left sided heart conditions and family history and chromosomal abnormalities, including RASopathies and aneuploidy. Rosemary had low risk cfDNA screening for aneuploidies of chromosomes 13, 18 and 21. We reviewed the option of expanded cfDNA screening and the option of amniocentesis for the precise diagnosis of chromosomal abnormalities including the associated procedure-related risk of loss of 1/300 to 1/500. The patient declined amniocentesis today, but did opt to proceed with expanded cfDNA screening. A echo has been scheduled with Pediatric Cardiology in 1-2 weeks and a repeat US has been scheduled here in 3 weeks. We did review that we will discuss location of delivery in more detail once the results of the echo have returned. Return to primary provider for continued care. Thank you for the opportunity to participate in the care of this patient. If you have questions regarding today's evaluation or if we can be of further service, please contact the [facility]. anomalies may be present but not detected I spent a total of 30 minutes on the date of this encounter including preparing to see the patient (reviewing medical records/tests), in direct nehb-ei-vufo contact with the patient during her visit with the majority spent counseling and discussing the plan of care and documenting the visit in the electronic medical record. Please see note for details. Procedure Note Suresh Padron MD - 05/08/2023 Comprehensive ----- Pat. Name: ROSEMARY NARAYAN Study Date: 05/08/2023 1:57pm Pat. NO: [id number] Referring MD: FRANCIA EPPS Site: [facility] Distance Learning Coordinator: Bettie Bernstein RDMS : 2000 Age: 22 ----- INDICATION ----- Covid In (1st trimester) METHOD ----- Transabdominal ultrasound examination. View: Suboptimal view: limited bymaternal body habitus and position ----- Law . Number of fetuses: 1 DATING ----- DateDetailsGest. age JAYE LMP 12/15/2022ycle: irregular cycle20 w + 4 d 09/21/2023 Prior assessment 02/16/2023 GA: 7 w +3 d19 w + 0 d 10/02/2023 U/S 05/08/2023ased upon AC, BPD, Femur, HC18 w + 3 d 10/06/2023 Assigned dating Dating performed on 05/08/2023, based onthe prior assessment (on 02/16/2023) 19 w + 0 10/02/2023 GENERAL EVALUATION ----- Cardiac activity present. FHR 149 bpm. movements present. Presentation breech. Placenta posterior, no previa > 2 cm from internal os . Umbilical cord Cord vessels: 3 vessel cord. Insertion site: normalinsertion. Amniotic fluid Amount of AF: normal. MVP 4.0 cm. BIOMETRY ----- Main Biometry: BPD 38.6 mm17w 5d Hadlock OFD 55.9 mm18w 3d Nicolaides HC 152.4 mm18w 2d Hadlock Cerebellum tr 18.9 mm18w 3d Nicolaides AC 141.0 mm19w 3d 62% Hadlock Femur 27.4 mm18w 3d Hadlock Humerus 26.5 mm18w 3d Ana Weight Calculation: EFW 261 g36% Hadlock EFW (lb,oz) 0 lb 9 oz EFW by Hadlock ([id number]) Head / Face / Neck Biometry: Line Dancer 5.6 mm CM 5.6 mm Nasal bone 6.1 mm Nuchal fold 4.5 mm ANATOMY ----- The following structures appear abnormal: Heart / Thorax 4-chamber view: Left side of the heartis small . LVOT view: Small, narrow aorta . The following structures appear normal: Head / Neck Cranium. Head size. Head shape.Lateral ventricles. Choroid plexus. Midline falx. Cavum septi pellucidi.Cerebellum. Cisterna magna. Parenchyma. Thalami. Vermis. Neck. Nuchal fold. Face Lips. Profile. Nose. Maxilla.Mandible. Orbits. Lens. Heart / Thorax RVOT view. Right lung. Left lung.Diaphragm. Abdomen Abdominal wall. Cord insertion.Stomach. Kidneys. Bladder. Liver. Bowel. Genitals. Spine Cervical spine. Thoracic spine.Lumbar spine. Sacral spine. Extremities / Skeleton Right arm. Right hand. Left arm. Lef[place]and. Right leg. Right foot. Left leg. Left foot. Gender: male. ECHOCARDIOGRAM ----- 2D Echo (Qualitatively): Situssitus solitus (normal) Cardiac positionlevocardia (normal) Cardiac sizenormal (approx. 1/3 of thoracic area) Cardiac Rhythmregular (normal) 4-chamber viewabnormal, Left side of the heart is small LVOT viewabnormal, Small, narrow aorta RVOT viewnormal 3-vessel viewabnormal, Aorta is small compared to the pulmonary artery and thesuperior vena cava 7-rpqnwg-eiwnewb viewabnormal, Aorta is small compared to the pulmonary artery Aortic arch viewsuboptimal Ductal arch viewsuboptimal Bicaval viewsuboptimal SVCsuboptimal IVCsuboptimal 2D and M-Mode Measurements: Cardiac Chambers 2D Mode: TV annulus diast 4.1 mm MV annulus diast 3.6 mm AoV annulus syst 2.1 mm MV annulus diast / TV 0.88 annulus diast Heart Z-Scores: Z- FL Z- BPD Z- GAZscore by TV annulus diast 4.1 mm-1.11 -0.36 -1.64Schneider MV annulus diast 3.6 mm-2.66 -1.84 -2.93Schneider AoV annulus syst 2.1 mm-1.73 -0.89 -2.03Schneider MATERNAL STRUCTURES ----- Cervix Visualized Appearance: Appears Closed Approach - Transabdominal:Cervical length 49.5 mm Right Ovary Visualized Left Ovary Visualized RECOMMENDATION ----- We discussed the findings on today's ultrasound with the patient. 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 The left ventricle is apex forming, whichis reassuring, but I suspect that there is coarctation or hypoplasia of aortic arch, or aorticstenosis as the LVOT appears narrowed and the 3 vessel view is abnormal.We will plan to coordinate a echo to further evaluate the cardiac anatomy. Marisabel reviewed the association with left sided heart conditions and familyhistory and chromosomal abnormalities, including RASopathies and aneuploidy. Rosemary had low riskcfDNA screening for aneuploidies of chromosomes 13, 18 and 21. We reviewedthe option of expanded cfDNA screening and the option of amniocentesis for the precisediagnosis of chromosomal abnormalities including the associatedprocedure-related risk of loss of 1/300 to 1/500. The patient declined amniocentesistoday, but did opt to proceed with expanded cfDNA screening. A echo has been scheduled with Pediatric Cardiology in 1-2 weeks zahida repeat US has been scheduled here in 3 weeks. We did review that we willdiscuss location of delivery in more detail once the results of the echo havereturned. Return to primary provider for continued care. Thank you for the opportunity to participate in the care of this patient.If you have questions regarding today's evaluation or if we can be offurther service, please contact the [facility]. anomalies may be present but not detected I spent a total of 30 minutes on the date of this encounter includingpreparing to see the patient (reviewing medical records/tests), in yohwliplnf-xf-npjy contact with the patient during her visit with the majority spent counseling and discussingthe plan of care and documenting the visit in the electronic medicalrecord. Please see note for details. IMPRESSION ----- 1) Law intrauterine at 19w 0d gestational age. 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 There is ventricular size discrepancy with the left ventriclebeing apex forming, but smaller than the right ventricle. The aortic valve was difficult tovisualize as was the aortic arch. Otherwise, none of the anomaliescommonly detected by ultrasound were evident in the detailed anatomic survey described above, althoughevaluation of anatomy was suboptimal as noted above. 3) Growth parameters and estimated weight were consistent with anappropriate for gestation age pattern of growth. 4) The amniotic fluid volume appeared normal. Leeluzma Supriya STRUCTURAL RIGGER CNM IMG MFM ORDERAB LES * PAP SMEAR (08/08/1998 1:18 PM CDT) Unlabelled DNR [facility] Biopsy Sent DNR [facility] Source VAG,CERV,E NDOCERV [facility] LMP POST [facility] PARA 3 [facility] 2 [facility] Clinical History [facility]NR [facility] Therapy DNR [facility] Last Pap Diagnosis WITHIN NORMAL LIMITS [facility] PAP Date [id number] [facility] Specimen # DNR [facility] Tissue DNR [facility] Tissue Date DNR [facility] Statement of Adequacy [facility] Comment: SATISFACTORY FOR INTERPRETATION POST MENOPAUSAL PATIENT. ??NO ENDOCERVICAL CELLS SEEN. General Categorization DNR [facility] Descriptive Diagnosis [facility] Comment: WITHIN NORMAL LIMITS ATROPHIC CELL PATTERN Recommendations DNR [facility] DNR 114,,,,,, [facility] DNR DNR [facility] DNR [facility]NR [facility] DNR DNR [facility] . [facility] Comment: ?PAP SMEARS ARE SUBJECT TO BOTH FALSE NEGATIVE AND FALSE ? POSITIVE RESULTS EVIDENCED BY DATA PUBLISHED IN THE ? MEDICAL LITERATURE. ??YOUR PATIENT'S RESULT SHOULD BE ? INTERPRETED IN THIS CONTEXT, TOGETHER WITH THE PATIENT'S ? HISTORY AND CLINICAL FINDINGS. TESTING LOCATION ? THIS TEST [facility]FOR[facility] ? [address] [facility]. [id number] ? PHONE NUMBERS FOR CYTOLOGY INQUIRES, INCLUDING SLIDE REQUESTS ? EXT. [id number] ?? EXT. [id number] 08/06/1998 Irina Case MD LABORATORY [facility] from Last 3 Months or Most Recently Relevant to Health Maintenance Care Teams Wireless Consultant Relationship Specialty Start Date End Date No Ref-Primary, Physician PCP - General 05/08/23
--- OUTSIDE RECORDS SUMMARY | 2023-06-30 14:14 | XMS_ITS | Clinical Summary ---
Author Name Unknown Organization [place] Address [address] [place] [address] Care Team Providers Care Client Portfolio Manager Name Role Phone No Ref-Primary, Physician Primary Care Provider Encounters Date Type Department Care Team Description 06/29/2023 2:45 PM CDT Office Visit [facility] Maternal Medicine [place] [address] [place] [address] Swati Hurst MD Congenital heart defect (Primary Dx) 06/29/2023 2:15 PM CDT - 06/29/2023 11:59 PM CDT Hospital Encounter [facility] Medicine [facility] [address] [place] [address] Swati Hurst MD abnormality affecting management of mother, single or unspecified fetus Discharge Disposition: Home or Self Care 06/29/2023 Travel 06/01/2023 8:30 AM CDT Office Visit [facility] Medicine [facility] [address] [place] [address] Suresh Padron MD Burn, Martina, MD abnormality affecting management of mother, single or unspecified fetus (Primary Dx) 06/01/2023 7:52 AM CDT - 06/01/2023 11:59 PM CDT Hospital Encounter [facility] Medicine [facility] [address] [place] [address] Suresh Padron MD Burn, Martina MD complicated by congenital heart disease, single or unspecified fetus Discharge Disposition: Home or Self Care 06/01/2023 Telephone [facility] Maternal Medicine [facility] [address] [place] [address] Kody Davey GC 06/01/2023 Travel 05/21/2023 MyC Medical Advice [facility] [address] [place] [phone] Kym Little RN 05/20/2023 7:55 AM DINKEY ENGINE FIRER - 05/20/2023 11:59 PM DINKEY ENGINE FIRER Hospital Encounter [facility] [address] [place] [phone] Suresh Padron MD complicated by congenital heart disease, single or unspecified fetus Discharge Disposition: Home or Self Care 05/20/2023 Office Visit [facility] [address] [place] [phone] Yifan Aponte MD Anomaly of heart of fetus affecting , antepartum, single or unspecified fetus (Primary Dx) 05/20/2023 Travel 05/12/2023 Documentation Only [facility] Maternal Medicine [facility] [address] [place] [phone] Kody Davey GC 05/08/2023 3:00 PM DINKEY ENGINE FIRER Office Visit [facility] Maternal Medicine [facility] [address] [place] [phone] Suresh Padron MD Deffer, Christopher A, GC Abnormal ultrasound; abnormality affecting management of mother, single or unspecified fetus; Encounter for procreative genetic counseling and testing 05/08/2023 2:45 PM DINKEY ENGINE FIRER Office Visit [facility] Maternal Medicine [facility] [address] [place] [phone] RuuskaFrancia APRN CNM Yamamura, Yasuko, MD complicated by congenital heart disease, single or unspecified fetus (Primary Dx) 05/08/2023 2:05 PM DINKEY ENGINE FIRER - 05/08/2023 11:59 PM DINKEY ENGINE FIRER Hospital Encounter [facility] Maternal Medicine [place] [address] [place] [address] Francia Epps APRN CNM Yamamura, Yasuko, MD related condition, antepartum Discharge Disposition: Home or Self Care 05/08/2023 Medical Correspondence [facility] Info [facility] [address] [place] [phone] Scan, Non-Provider 05/08/2023 Orders Only [facility] Maternal Medicine [facility] [address] [place] [address] Kody Davey GC Abnormal ultrasound (Primary Dx); abnormality affecting management of mother, single or unspecified fetus; Encounter for procreative genetic counseling and testing 05/08/2023 Travel 05/01/2023 PRE VISIT [facility] Medicine [place] [address] [place] [phone] Keysha Garcia RN Ultrasound (L2-Covid + 1st [...] Info) Description 07/14/2023 8:00 AM CDT [facility]ointment [facility] [address] [place] [phone] 07/31/2023 2:15 PM CDT Appointment [facility] Medicine [place] [address] [place] [phone] Swati Hurst MD [address] [place], [place] [phone] 07/31/2023 2:45 PM CDT Office Visit [facility] Maternal Medicine [facility] [place] [address] [facility] [address] [place] [phone] Swati Hurst MD [address] [place], [place] [phone] Health Maintenance Due Date Last Done Comments ADVANCE CARE PLANNING 1999 ANNUAL REVIEW OF HM ORDERS 1999 YEARLY PREVENTIVE VISIT 1999 Pneumococcal Vaccine: Pediatrics (0 to 5 Years) and At-Risk Patients (6 to 64 Years) (1 of 2 - PCV) 08/21/2005 HIV SCREENING 08/21/2014 HEPATITIS C SCREENING 08/21/2017 HEPATITIS B IMMUNIZATION (1 of 3 - 19+ 3-dose series) 08/21/2018 DTAP/TDAP/TD IMMUNIZATION (2 - Td or Tdap) 08/16/2019 07/19/2019 CHLAMYDIA SCREENING 05/20/2022 05/20/2021 MATERNAL SCREENING DISCUSSION 03/06/2023 PHQ-2 (once per calendar year) 2023 OBGCT (OB) 06/12/2023 PAP 09/12/2025 09/12/2022, 09/12/2022 HPV IMMUNIZATION Completed 12/11/2021, 07/11/2021, 05/20/2021 COVID-19 Vaccine Completed 03/17/2023, 05/14/2020, 04/16/2020 INFLUENZA VACCINE Completed 03/17/2023 IPV IMMUNIZATION Aged Out No longer e ligible based on patient's age to complete this topic MENINGITIS IMMUNIZATION Aged Out No l onger eligible based on patient's age to complete this topic RSV MONOCLONAL ANTIBODY Aged Out No l onger eligible based on patient's age to complete this topic RSV VACCINE ( & 60+ ) (No Doses Required) Completed Procedures Procedure Name Priority Date/Time Associated Diagnosis Comments [facility] COMPREHENSIVE SINGLE F/U Routine 06/29/2023 2:58 PM CDT abnormality affecting management of mother, single or unspecified fetus [facility] COMPREHENSIVE SINGLE F/U Routine 06/01/2023 8:34 AM CDT complicated by congenital heart disease, single or unspecified fetus ECHO COMPLETE Routine 05/20/2023 9 :52 AM DINKEY ENGINE FIRER complicated by congenital heart disease, single or unspecified fetus [facility] COMPREHENSIVE SINGLE Routine 05/08/2023 3:10 PM DINKEY ENGINE FIRER related condition, antepartum [facility] ELECTROCARDIOGRAM, COMP W/READ Routine 05/26/2000 Preop Exam Other Specified HCL PAP SMEAR Routine 08/08/1998 1:18 PM CDT Gynecologic Examination from Last 3 Months or Most Recently Relevant to Health Maintenance Results * [facility] Comprehensive Single F/U (06/29/2023 2:58 PM CDT) Only the most recent of2 resultswithin the time period is included. Anatomical Region Laterality Modality Ultrasound 06/29/2023 2:20 PM CDT Swati uHrst MD IMG [facility] ORDERABLE S * ECHO COMPLETE (05/20/2023 9:52 AM DINKEY ENGINE FIRER) Anatomical Region Laterality Modality Echocardiography 05/20/2023 8:11 AM DINKEY ENGINE FIRER Narrative 05/20/2023 10:23 AM DINKEY ENGINE FIRER [id number]^NEREIDA^SURESH ? Study ID: [id number] ?[facility] ?[facility] ?[address] ?[place] [address] ? Echocardiogram Name: ROSEMARY NARAYAN Study Date: 05/20/2023 08:11 AM ? Patient Location: [facility] Gender: Female ?Patient Class: Outpatient : 2000 [...] to the left atrium. There is laminar fnmnr-mh-rrlf shunting across the foramen ovale. Atrioventricular valves: [...] Procedure Note Yifan Aponte MD - 05/20/2023 [id number] [facility] [id number]^NEREIDA^SURESH Study ID:[id number] [facility] [address] [place] [address] Echocardiogram Name: ROSEMARY NARAYAN Study Date: 05/20/2023 08:11 AM Patient Location: [facility] Gender: Female Patient Class:Outpatient : 2000 [...] in to the left atrium. There is lnwprcxmcagq-cp-yjsr shunting across the foramen ovale. Atrioventricular valves: [...] MFM US Comprehensive Single (05/08/2023 3:10 PM DINKEY ENGINE FIRER) Anatomical Region Laterality Modality Ultrasound 05/08/2023 1:57 PM DINKEY ENGINE FIRER Impressions 05/08/2023 7:13 PM DINKEY ENGINE FIRER IMPRESSION ----- 1) Law intrauterine at 19w [...] volume appeared normal. Narrative 05/08/2023 7:13 PM DINKEY ENGINE FIRER ?Comprehensive ----- Pat. Name: ROSEMARY NARAYAN ? Study Date: ??05/08/2023 1:57pm Pat. NO: ??[id number] ?Referring ??MD: FRANCIA EPPS Site: ??[facility] ? Cotton Opener: Bettie Bernstein RDMS : ??2000 ?Age: ?? [...] 0 lb 9 ?oz EFW by ?Hadlock ([id number]-FL) Head / Face / Neck Biometry: Masonry Teacher ? 5.6 ? mm CM ?5.6 ? [...] pulmonary artery and the superior vena cava 4-kpypqk-jpbkxbg view ? abnormal, Aorta is small compared [...] ? mm ?-1.11 ? -0.36 ?- 1.64 ?Hopkins MV annulus diast ?3.6 ? mm ?-2.66 ?-1.84 ? - 2.93 ? Hopkins AoV annulus syst ? 2.1 ? mm [...] the patient (reviewing medical records/tests), in direct mbjk-dh-wfay contact with the patient during her visit with the majority spent counseling and discussing the plan of care and documenting the visit in the electronic medical record. Please see note for details. Procedure Note Suresh Padron MD - 05/08/2023 Comprehensive ----- Pat. Name: ROSEMARY NARAYAN Study Date: 05/08/2023 1:57pm Pat. NO: [id number] Referring MD: FRANCIA EPPS Site: [facility] Cotton Opener: Bettie Bernstein RDMS : 2000 Age: 22 [...] 0 lb 9 oz EFW by Hadlock ([id number]-FL) Head / Face / Neck Biometry: Masonry Teacher 5.6 mm CM 5.6 mm Nasal bone [...] the pulmonary artery and thesuperior vena cava 3-zaaowk-medblxx viewabnormal, Aorta is small compared to the [...] echo to further evaluate the cardiac anatomy. Dianeo reviewed the association with left sided heart [...] see the patient (reviewing medical records/tests), in yxfnknpajg-gs-lwku contact with the patient during her visit [...] 4) The amniotic fluid volume appeared normal. [facility] * PAP SMEAR (08/08/1998 1:18 PM CDT) Unlabelled R [facility] Biopsy Sent [facility] Source VAG,CERV,E NDOCERV [facility] LMP POST [facility] PARA [address] [facility] [address] [facility] Clinical History DNR [facility] Last Pap Diagnosis WITHIN NORMAL LIMITS [facility] PAP Date [id number] [facility] Specimen # DNR [facility] Tissue DNR [facility] Tissue Date R [facility] Statement of Adequacy [facility] Comment: SATISFACTORY FOR INTERPRETATION POST MENOPAUSAL PATIENT. ??NO ENDOCERVICAL CELLS SEEN. General Categorization [facility] Descriptive Diagnosis [facility] Comment: WITHIN NORMAL LIMITS ATROPHIC CELL PATTERN Recommendations DNR [facility] DNR 114,,,,,, [facility] DNR DNR [facility] DNR DNR [facility] DNR DNR [facility] . [facility] Comment: ?PAP SMEARS ARE SUBJECT TO BOTH FALSE NEGATIVE AND FALSE ? POSITIVE RESULTS EVIDENCED BY DATA PUBLISHED IN THE ? MEDICAL LITERATURE. ??YOUR PATIENT'S RESULT SHOULD BE ? INTERPRETED IN THIS CONTEXT, TOGETHER WITH THE PATIENT'S ? HISTORY AND CLINICAL FINDINGS. TESTING LOCATION ? THIS [facility] ? [address] [facility]. [id number] ? PHONE NUMBERS FOR CYTOLOGY INQUIRES, INCLUDING SLIDE REQUESTS ? EXT. [id number] ?? EXT. [id number] 08/06/1998 Irina Case MD LABORATORY [facility] from Last 3 Months or Most Recently Relevant to Health Maintenance Care Teams Client Portfolio Manager Relationship Specialty Start Date End Date No Ref-Primary, Physician PCP - General 05/08/23
--- OUTSIDE RECORDS SUMMARY | 2023-06-30 14:14 | XMS_ITS | Encounter Summary ---
Author Name Unknown Organization [place] Address [address] [place] [address] Care Team Providers Care Toll Collector Supervisor Name Role Phone No Ref-Primary, Physician Primary Care Provider Encounter Details Date Type Department Care Team (Latest Contact Info) Description 06/01/2023 Travel Social History Tobacco Use Types Packs/Day [...] 8:00 AM CDT Appointment [facility] [address] [place] [phone] 07/31/2023 2:15 PM CDT Appointment [facility] Maternal Medicine [facility] [address] [place] [phone] Swati Hurst MD [address] [facility] [address] [facility] [address] [place] [address] 07/31/2023 2:45 PM CDT Office Visit [facility] Maternal Medicine [facility] [address] [place] [phone] Swati Hurst MD [address] [facility] [address] [place] [address] documented as of this encounter Visit Diagnoses Not on filedocumented in this encounter Care Teams Toll Collector Supervisor Relationship Specialty Start Date End Date No Ref-Primary, Physician PCP - General 05/08/23 documented as of this encounter
--- OUTSIDE RECORDS SUMMARY | 2023-06-30 14:14 | XMS_ITS | Encounter Summary ---
Author Name Unknown Organization [place] Address [address] [place] [address] Care Team Providers Care Stockholder Name Role Phone No Ref-Primary, Physician Primary Care Provider Encounter Details Date Type Department Care Team (Late st Contact Info) Description 06/01/[address] [facility] [place] [address] [place], [place] [phone] Kody Davey GC [address] [place], [place] [phone] Social History Tobacco Use Types Packs/Day Years [...] on file documented as of this encounter Miscellaneous Notes * Telephone Encounter - Kody Davey GC - 06/01/2023 1:56 PM CDT 06/01/2023 Called Rosemary to discuss MaterniT Genome results. Results are negative, lowering risks for common trisomies, sex chromosome conditions, select microdeletions, and genome wide large (>7mb) chromosomal changes. We discussed that this result is reassuring but not diagnostic. We discussed that her will be reviewed with pediatric genetics for recommendations for care at or after delivery, and genetic counseling will follow up with her later in . All of Rosemary's questions were answered to her satisfaction and she was encouraged to remain in contact as needed moving forward Kody Davey MS, [facility] Licensed Genetic Counselor Pager: [phone] documented in this encounter Plan of Treatment Upcoming Encounters Date Type Department Care Team (Late st Contact Info) Description 07/14/2023 8:00 AM CDT Appointment [facility] Care [address] [place] [address] 07/31/2023 2:[address] [facility] Maternal Medicine [facility] [address] [place] [phone] Swati Hurst MD [address] [facility] [address] [place], [place] [address] 07/31/2023 2:45 PM CDT Office Visit [facility] Maternal Medicine [facility] [address] [place] [phone] Swati Hurst MD [address] [facility] [address] [place], [place] [address] documented as of this encounter Visit Diagnoses Not on filedocumented in this encounter Care Teams Stockholder Relationship Specialty Start Date End Date No Ref-Primary, Physician PCP - General 05/08/23 documented as of this encounter
--- OUTSIDE RECORDS SUMMARY | 2023-06-30 14:15 | XMS_ITS | Encounter Summary ---
Author Name Unknown Organization [place] Address [address] [facility] [place] [address] Care Team Providers Care Assistant Research Scientist Name Role Phone No Ref-Primary, Physician Primary Care Provider Reason for Referral * Diagnostic Imaging Ultrasound (Routine) - Pending Review Specialty Diagnoses / Procedures Referred By Contac t Referred To Contact Radiology. Diagnoses related condition, antepartum Procedures [facility] Francia Epps APRN [facility] [address] [place] [address] Referral ID Status Reason Start Date Expiration Date V isits Requested Visits Authorized [id number] Pending Review 03/18/2023 03/17/2024 1 1 ENTICE LINEMAN THIRD STEP Reason for Visit * Diagnostic Imaging Ultrasound (Routine) - Pending Review Specialty Diagnoses / Procedures Referred By Contac t Referred To Contact Radiology. Diagnoses related condition, antepartum Procedures [facility] Francia Epps APRN [facility] [address] [place] [address] Referral ID Status Reason Start Date Expiration Date V isits Requested Visits Authorized [id number] Pending Review 03/18/2023 03/17/2024 1 1 Encounter Details Date Type Department Care Team (Latest Contact Info) Description 05/08/2023 2:05 PM APPRENTICE LINEMAN THIRD STEP - 05/08/2023 11:59 PM APPRENTICE LINEMAN THIRD STEP Hospital Encounter [facility] Maternal Medicine Center [place] [address] [place] [address] Francia Epps APRN [facility] AND [address] [address] Leyda Guzman MD [address] [address] related condition, antepartum Discharge Disposition: Home or Self Care Social [...] Info) Description 07/14/2023 8:00 AM CDT Appointment [facility] Heart Care [address] [place] [address] 07/31/2023 2:15 PM CDT Appointment [facility] Maternal Medicine [place] [address] [address] [place] [address] Swati Hurst MD [address] [address] 07/31/2023 2:45 PM CDT Office Visit [facility] Maternal Medicine [facility] [address] [facility] [address] [place] [address] Swati Hurst MD [address] [address] documented as of this encounter Procedures Procedure Name Priority Date/Time Associated Diagnosis Comments [facility] COMPREHENSIVE SINGLE Routine 05/08/2023 3:10 PM APPRENTICE LINEMAN THIRD STEP related condition, antepartum documented in this encounter Results * M US Comprehensive Single (05/08/2023 3:10 PM APPRENTICE LINEMAN THIRD STEP) Anatomical Region Laterality Modality Ultrasound 05/08/2023 1:57 PM APPRENTICE LINEMAN THIRD STEP Impressions 05/08/2023 7:13 PM APPRENTICE LINEMAN THIRD STEP IMPRESSION ----- 1) Estrada intrauterine at 19w 0d gestational age. 2) [...] volume appeared normal. Narrative 05/08/2023 7:13 PM APPRENTICE LINEMAN THIRD STEP ?Comprehensive ----- Pat. Name: RA NARAYAN ? Study Date: ??05/08/2023 1:57pm Pat. NO: ??[id number] ?Referring ??MD: FRANCIA EPPS Site: ??[facility] ? Apprentice Lineman Third Step: Bettie Bernstein RDMS : ??2000 ?Age: ?? 22 ----- INDICATION ----- Covid In (1st trimester) METHOD ----- Transabdominal ultrasound examination. View: Suboptimal view: limited by maternal body habitus and position ----- Estrada . Number of fetuses: 1 DATING ----- [...] 0 lb 9 ?oz EFW by ?Hadlock ([id number]) Head / Face / Neck Biometry: Sausage Cutter ? 5.6 ? mm CM ?5.6 ? [...] pulmonary artery and the superior vena cava 4-jwqcfi-szcpcwg view ? abnormal, Aorta is small compared [...] and chromosomal abnormalities, including RASopathies and aneuploidy. Ra had low risk cfDNA screening for aneuploidies [...] the patient (reviewing medical records/tests), in direct dvif-kf-xdwl contact with the patient during her visit with the majority spent counseling and discussing the plan of care and documenting the visit in the electronic medical record. Please see note for details. Procedure Note Leyda Guzman MD - 05/08/2023 Comprehensive ----- Pat. Name: GRZEGORZ AN RA Study Date: 05/08/2023 1:57pm Pat. NO: [id number] Referring MD: FRANCIA EPPS Site: [place] [facility] Lineman Third Step: Bettie Bernstein RDMS : 2000 Age: 22 ----- INDICATION ----- Covid In (1st trimester) METHOD ----- Transabdominal ultrasound examination. View: Suboptimal view: limited bymaternal body habitus and position ----- Estrada . Number of fetuses: 1 DATING ----- [...] 0 lb 9 oz EFW by Hadlock ([id number]) Head / Face / Neck Biometry: Sausage Cutter 5.6 mm CM 5.6 mm Nasal bone [...] the pulmonary artery and thesuperior vena cava 7-qhtjxy-oksvvhj viewabnormal, Aorta is small compared to the [...] and chromosomal abnormalities, including RASopathies and aneuploidy. Ra had low riskcfDNA screening for aneuploidies of [...] see the patient (reviewing medical records/tests), in upnbsdjomq-rr-myry contact with the patient during her visit with the majority spent counseling and discussingthe plan of care and documenting the visit in the electronic medicalrecord. Please see note for details. IMPRESSION ----- 1) Estrada intrauterine at 19w 0d gestational age. 2) [...] The amniotic fluid volume appeared normal. Francia Epps APRN, CNM IMG [facility] US ORDERAB LES documented in this encounter Visit Diagnoses Diagnosis related condition, antepartum documented in this encounter Care Teams Assistant Research Scientist Relationship Specialty Start Date End Date No Ref-Primary, Physician PCP - General 05/08/23 documented as of this encounter
--- OUTSIDE RECORDS SUMMARY | 2023-06-30 14:15 | XMS_ITS | Encounter Summary ---
Author Name Unknown Organization [place] Address [facility] [place] [address] Care Team Providers Care Field Broomer Name Role Phone No Ref-Primary, Physician Primary Care Provider Reason for Referral * Consultation (Routine: Next available opening) - Pending Review Specialty Diagnoses / Procedures Referred By Contac t Referred To Contact Diagnoses Abnormal ultrasound abnormality affecting management of mother, single or unspecified fetus Encounter for procreative genetic counseling and testing Leyda Guzman MD [address] [facility] [address] [place] [address] Referral ID Status Reason Start Date Expiration Date V isits Requested Visits Authorized [id number] Pending Review 05/08/2023 05/07/2024 1 1 USER EXPERIENCE STRATEGIST Encounter Details Date Type Department Care Team (Late st Contact Info) Description 05/08/2023 Orders Only [facility] Maternal Medicine Center [place] [address] [place] [address] Kody Davey GC [address] [facility] [address] [place] [address] Abnormal ultrasound (Primary Dx); abnormality affecting management of mother, single or unspecified fetus; Encounter for procreative genetic counseling and testing Social History Tobacco Use Types Packs/Day Years [...] Info) Description 07/14/2023 8:00 AM CDT Appointment [facility] Heart Care [address] [place] [address] 07/31/2023 2:15 PM CDT Appointment [facility] Maternal Medicine [facility] [address] [place] [phone] Swati Hurst MD [address] [place] [address] [place] [address] 07/31/2023 2:45 PM CDT Office Visit [facility] Maternal Medicine [facility] [address] [place] [phone] Swati Hurst MD [address] [address] [place], [place] [address] Scheduled Referrals Name Type Priority Associated Diagnoses Orde r Schedule [facility] Genetic Counseling Referral Routine: Next available opening Abnormal ultrasound abnormality affecting management of mother, single or unspecified fetus Encounter for procreative genetic counseling and testing Expected: 05/08/2023 (Approximate), Expires: 05/08/2024 documented as of this encounter Visit Diagnoses Diagnosis Abnormal ultrasound- Primary Abnormal findings on screening abnormality affecting management of mother, single or unspecified fetus Encounter for procreative genetic counseling and testing documented in this encounter Care Teams Field Broomer Relationship Specialty Start Date End Date No Ref-Primary, Physician PCP - General 05/08/23 documented as of this encounter
--- OUTSIDE RECORDS SUMMARY | 2023-06-30 14:15 | XMS_ITS | Encounter Summary ---
Author Name Unknown Organization [place] Address [address] [place] [address]. [place] [address] Care Team Providers Care Technical Implementation Lead Name Role Phone No Ref-Primary, Physician Primary Care Provider Encounter Details Date Type Department Care Team (Late st Contact Info) Description 05/21/2023 MyC Medical Advice [facility] [address] [place] [address] Clinic [address] [place] [address] Kym Little, RN Social History Tobacco Use Types Packs/Day Years [...] Info) Description 07/14/2023 8:00 AM CDT Appointment [facility] [address] [place] [address] 07/31/2023 2:15 PM CDT Appointment [facility] Maternal Medicine Center [place] [address] [facility] [address] [place] [phone] Swati Hurst MD [address] [place], [place] [address] 07/31/2023 2:45 PM CDT Office Visit [facility] Maternal Medicine [facility] [address] [facility] [address] [place] [address] Swati Hurst MD [address] [facility] [address] [place] [address] documented as of this encounter Visit Diagnoses Not on filedocumented in this encounter Care Teams Technical Implementation Lead Relationship Specialty Start Date End Date No Ref-Primary, Physician PCP - General 05/08/23 documented as of this encounter
--- OUTSIDE RECORDS SUMMARY | 2023-06-30 14:15 | XMS_ITS | Encounter Summary ---
Author Name Unknown Organization [place] Address [address] [place] [address] Care Team Providers Care Coffee Brewer Name Role Phone No Ref-Primary, Physician Primary Care Provider Reason for Referral * (Routine) - Closed Specialty Diagnoses / Procedures Referred By Contac t Referred To Contact Cardiology Diagnoses Maternal care for other (suspected) abnormality and damage, cardiac anomalies, fetus 1 Procedures Echo (TTE) Complete Suresh Guzman MD [address] [address] [facility] [address] [place] [phone] Referral ID Status Reason Start Date Expiration Date Visits Re quested Visits Authorized [id number] Closed 05/08/2023 05/07/2024 1 1 D CARE AIDE Reason for Visit * (Routine) - Closed Specialty Diagnoses / Procedures Referred By Contac t Referred To Contact Cardiology Diagnoses Maternal care for other (suspected) abnormality and damage, cardiac anomalies, fetus 1 Procedures Echo (TTE) Suresh Munson MD [address] [address] [facility] [address] [place] [phone] Referral ID Status Reason Start Date Expiration Date Visits Re quested Visits Authorized [id number] Closed 05/08/2023 05/07/2024 1 1 Encounter Details Date Type Department Care Team (Latest Contact Info) Description 05/20/2023 7:55 AM CHILD CARE AIDE - 05/20/2023 11:59 PM CHILD CARE AIDE Hospital Encounter [facility] Heart Care [address] [place] [phone] Suresh Guzman MD [address] [facility] [address] [place], [place] [phone] complicated by congenital heart disease, single or [...] Info) Description 07/14/2023 8:00 AM CDT Appointment [facility] Care [address] [place] [phone] 07/31/2023 2:15 PM CDT Appointment [facility] Maternal Medicine [facility] [place] [address] [facility] [address] [place] [phone] Swati Hurst MD [address] [address] 07/31/2023 2:45 PM CDT Office Visit [facility] Maternal Medicine [facility] [place] [address] [facility] [address] [place] [phone] Swati Hurst MD [address] [address] [place] [address] documented as of this encounter Procedures Procedure Name Priority Date/Time Associated Diagnosis Comments ECHO COMPLETE Routine 05/20/2023 9 :52 AM CHILD CARE AIDE complicated by congenital heart disease, single or unspecified fetus documented in this encounter Results * ECHO COMPLETE (05/20/2023 9:52 AM CHILD CARE AIDE) Anatomical Region Laterality Modality Echocardiography 05/20/2023 8:11 AM CHILD CARE AIDE Narrative 05/20/2023 10:23 AM CHILD CARE AIDE [id number] [facility] [id number]^WISAMNELIDA^LARISACATHLEEN ? Study ID: [id number] ?[facility] ?[facility] ?[address] ?[place] [address] ? Echocardiogram Name: RA NARAYAN Study Date: 05/20/2023 08:11 AM ? Patient Location: [facility] Gender: Female ?Patient Class: Outpatient : 2000 ? Age: 22 yrs Ordering Provider: SURESH GUZMAN Referring Provider: SURESH GUZMAN Performed By: Mauricio Smith RDCS Reading Physician: [...] to the left atrium. There is laminar cxvrv-fl-gfcr shunting across the foramen ovale. Atrioventricular valves: [...] anomalies or coronary artery anomalies. Reading Physician: ?Yfian Aponte MD 05/20/2023 10:23 AM Procedure Note Yifan Aponte MD - 05/20/2023 [id number] [facility] [id number]^NEREIDA^SURESH Study ID:[id number] [facility] Children's [address] [address] Echocardiogram Name: RA NARAYAN Study Date: 05/20/2023 08:11 AM Patient Location: [facility] Gender: Female Patient Class:Outpatient : 2000 Age: 22 yrs Ordering Provider: SURESH GUZMAN Referring Provider: SURESH GUZMAN Performed By: Mauricio Smith RDCS Reading Physician: [...] in to the left atrium. There is zavdvvvfnthr-kc-jmhq shunting across the foramen ovale. Atrioventricular valves: [...] Yifan Aponte MD 05/20/2023 10:23 AM Suresh Guzman MD CV PEDS ECHO ORDERAB LES documented in this encounter Visit Diagnoses Diagnosis complicated by congenital heart disease, single or unspecified fetus documented in this encounter Care Teams Coffee Brewer Relationship Specialty Start Date End Date No Ref-Primary, Physician PCP - General 05/08/23 documented as of this encounter
--- OUTSIDE RECORDS SUMMARY | 2023-06-30 14:15 | XMS_ITS | Clinical Summary ---
Author Name Unknown Organization [facility] Address [place], [place] [address] Care Team Providers Care Sinker Puller Name Role Phone Anitha Ojeda DO Primary Care Provider [phone] Allergies Active Allergy Reactions Criticality Noted Date Comments Pompeii Shortness Of Breath,Rash 01/03/2020 Medications Medication Sig Dispensed Refills Start Date End Date Status levonorgestrel-ethinyl estrad, 0.1mg-20mcg, (ALESSE-28) 0.1-20 mg-mcg tabletIndications:Oral contraception initial prescription Take 1 Tablet by mouth once daily. 90 Tablet 3 08/28/2021 Active dicyclomine (BENTYL) 20 mg tabletIndications:Colit is,Abdominal cramping Take 1 Tablet (20 mg) by mouth 4 times daily if needed (abdominal cramping). 30 Tablet 02/18/2022 Active Active Problems Problem Noted Date [...] Comments Blood Pressure 121/78 02/18/2022 9:36 AM PALLETIZER Pulse 70 02/18/2022 9:36 AM PALLETIZER Temperature 37.1 ??C (98.8 ??F) 09/30/2021 1:43 PM CD T Respiratory Rate 14 12/21/2020 8:12 AM CDT Oxygen Saturation 99% 02/18/2022 9:36 AM PALLETIZER Inhaled Oxygen Concentration - - Weight 82.6 kg (182 lb) 02/18/2022 9:36 AM PALLETIZER Height 157 cm (5' 1.81) 07/11/2021 8:31 [...] 2022 05/14/2020, 04/16/2020 Influenza for age 9-49 11/15/2023 Pap test for age 21-65 09/12/2025 , 09/12/2022, 11/13/2021 Tetanus booster 07/18/2029 07/19/2019 Tdap Completed 07/19/2019 HIV for age 15-65 Completed 06/29/2020 HPV series for age 9-26 Completed 12/12/19 22, 07/11/2021, 05/20/2021 Pneumococcal series for age 6-64 Aged Out No longer eligible based on patient's age to complete this topic Procedures Procedure Name Priority Date/Time Associated Diagnosis Comments HPV THIN PREP Routine 09/12/2022 3:00 PM CDT GC CHLAMYDIA TRACH PROBE Routine 05/20/2021 3:33 PM PALLETIZER Routine screening for STI (sexually transmitted infection) ANTI HIV 1/2 Routine 06/29/2020 3:20 PM CDT Leukocytosis, unspecified type Thrombocytosis (HC) from Last 3 Months or Most Recently Relevant to Health Maintenance Results * HPV HIGH RISK (09/12/2022 3:00 PM CDT) TYPE 16 Negative Negative 09/23/2022 5:00 PM CDT [facility] TYPE 18 Negative Negative 09/23/2022 5:00 PM CDT [facility] OTHER HIGH RISK TYPES Negative Negative 09/23/2022 5:00 PM CDT [facility] Other (Other) 09/12/2022 3:0 0 PM CDT 09/17/2022 12:19 PM CDT Narrative [facility] - 09/23/2022 5:00 PM CDT HPV types 16, 18, 31, 33, 35, 39, 45, 51, 52, 56, 58, 59, 66 and 68 DNA were undetectable or below the pre-set threshold. Methodology: Michelle Adela 4800 HPV Test Alley Johnson MD MICROBIOLO GY [facility] [address] [place] [address], [place] * GC CHLAMYDIA TRACH PROBE (05/20/2021 3:33 PM PALLETIZER) CHLAMYDIA PROBE Negative 4:11 AM PALLETIZER [facility] N GONORRHOEAE PROBE Negative 05/21/2021 4:11 AM PALLETIZER [facility] Other URINE SPECIMEN / Unknown Non-Blood / Unknown 05/20/2021 3:33 PM PALLETIZER 05/20/2021 3:34 PM PALLETIZER Madina Goetz MD MICROBIOLOG Y [facility] [address] [place] [address], [place] * ANTI HIV 1/2 (06/29/2020 3:20 PM CDT) Pathologist [facility] HIV-1/HIV-2 ANTIBODY Non-Reacti ve Non-Reacti ve 06/29/2020 9:14 PM CDT [facility] Comment:HIV-1 p24 and HIV-1/ HIV-2 Ab not detected. Blood BLOOD SPECIMEN / Unknown Venipuncture / Unknown 06/29/2020 3:20 PM CDT 06/29/2020 3:20 PM CDT Anitha Ojeda DO SEND OUTS Performing Organization Address City/[facility]/ZIP Co de Phone Number [facility] [address] [place] [address], from Last 3 Months or Most Recently Relevant to Health Maintenance Care Teams Sinker Puller Relationship Specialty Start Date End Date Anitha Ojeda DO [address] [place] [address] PCP - General Family Practice 07/05/20
--- OUTSIDE RECORDS SUMMARY | 2023-06-30 14:15 | XMS_ITS | Encounter Summary ---
Author Name Unknown Organization [place] Address [address] [place] [address] Care Team Providers Care Paralegal Assistant Name Role Phone No Ref-Primary, Physician Primary Care Provider Encounter Details Date Type Department Care Team (Latest Contact Info) Description 05/20/2023 Travel Social History Tobacco Use Types Packs/Day [...] Info) Description 07/14/2023 8:00 AM CDT Appointment [facility] Heart Care [address] [place] [address] 07/31/2023 2:15 PM CDT Appointment [facility] Maternal Medicine [facility] [address] [place] [phone] Swati Hurst MD [address] [facility] [address] [place] [address] 07/31/2023 2:45 PM CDT Office Visit [facility] Maternal Medicine [facility] [address] [place] [phone] Swati Hurst MD [address] [facility] [address] [place] [address] documented as of this encounter Visit Diagnoses Not on filedocumented in this encounter Care Teams Paralegal Assistant Relationship Specialty Start Date End Date No Ref-Primary, Physician PCP - General 05/08/23 documented as of this encounter
--- OUTSIDE RECORDS SUMMARY | 2023-06-30 14:15 | XMS_ITS | Encounter Summary ---
Author Name Unknown Organization [place] Address [address] [facility] [place] [address] Care Team Providers Care Workshop Manager Name Role Phone Unavailable Primary Care Provider Unavailabl e Reason for Visit * Reason Comments Ultrasound L2-Covid + 1st trime ster Encounter Details Date Type Department Care Team (Late st Contact Info) Description 05/01/2023 PRE VISIT [facility] Maternal Medicine [facility] [address] [facility] [address] [place] [address] Keysha Garcia RN Ultrasound (L2-Covid + 1st trimester) Social History Tobacco Use Types Packs/Day Years [...] AM CDT Appointment [facility] [address] [place] [phone] 07/31/2023 2:15 PM CDT Appointment [facility] Maternal Medicine [facility] [address] [facility] [address] [place] [address] Swati Hurst MD [address] [facility] [address] [place] [address] 07/31/2023 2:45 PM CDT Office Visit [facility] Maternal Medicine [facility] [address] [facility] [address] [place] [address] Swati Hurst MD [address] [facility] [address] [place] [address] documented as of this encounter Visit Diagnoses Not on filedocumented in this encounter
--- OUTSIDE RECORDS SUMMARY | 2023-06-30 14:15 | XMS_ITS | Encounter Summary ---
Author Name Unknown Organization [place] Address [facility] [place] [address] Care Team Providers Care Campaign Coordinator Name Role Phone No Ref-Primary, Physician Primary Care Provider Reason for Referral * Diagnostic Imaging Ultrasound (Routine) - Pending Review Specialty Diagnoses / Procedures Referred By Contac t Referred To Contact Radiology. Diagnoses Maternal care for other (suspected) abnormality and damage, cardiac anomalies, fetus 1 Procedures [facility] US Comprehensive Single F/U Leyda Guzman MD [address] [place] [id number] Referral ID Status Reason Start Date Expiration Date V isits Requested Visits Authorized [id number] Pending Review 05/08/2023 05/07/2024 1 1 Reason for Visit * Diagnostic Imaging Ultrasound (Routine) - Pending Review Specialty Diagnoses / Procedures Referred By Contac t Referred To Contact Radiology. Diagnoses Maternal care for other (suspected) abnormality and damage, cardiac anomalies, fetus 1 Procedures [facility] Comprehensive Single F/U Leyda Guzman MD [address] [place] [address] Referral ID Status Reason Start Date Expiration Date V isits Requested Visits Authorized [id number] Pending Review 05/08/2023 05/07/2024 1 1 Encounter Details Date Type Department Care Team (Latest Contact Info) Description 06/01/2023 7:52 AM CDT - 06/01/2023 11:59 PM CDT Hospital Encounter [facility] Maternal Medicine [facility] [address] [place] [phone] Leyda Guzman MD [address] [place], [place] [phone] Swati Hurst MD [address] [place] [phone] complicated by congenital heart disease, single or [...] Info) Description 07/14/2023 8:00 AM CDT Appointment [facility] [address] [place] [address] 07/31/2023 2:15 PM CDT Appointment [facility] Maternal Medicine [place] [address] [place] [phone] Swati Hurst MD [address] [id number] 07/31/2023 2:45 PM CDT Office Visit [facility] Maternal Medicine [facility] [address] [place] [phone] Swati Hurst MD [address] [place] [address] documented as of this encounter Procedures Procedure Name Priority Date/Time Associated Diagnosis Comments [facility] US COMPREHENSIVE SINGLE F/U Routine 06/01/2023 8:34 AM CDT complicated by congenital heart disease, single or unspecified fetus documented in this encounter Results * [facility] US Comprehensive Single F/U (06/01/2023 8:34 AM CDT) Anatomical Region Laterality Modality Ultrasound 06/01/2023 7:57 AM CDT Impressions 06/01/2023 9:05 AM CDT IMPRESSION ----- 1. Estrada intrauterine at 22w 3d gestational age here for assessment of growth. 2. 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 3. No other anomalies commonly detected by ultrasound were evident in the limited anatomic survey as described above, anatomy limited by gestational age and lie. 4. Growth parameters and estimated weight were consistent with established dates. 5. The amniotic fluid volume appeared normal. Narrative 06/01/2023 9:05 AM CDT ?Comp Follow Up ----- Pat. Name: RA NARAYAN ? Study Date: ??06/01/2023 7:57am Pat. NO: ??[id number] ?Referring ??MD: FRANCIA GILMAN Site: ??[facility] ? Nuisance Wildlife Control Operator: Mumtaz Ventura RDMS : ??2000 ?Age: ?? 22 ----- INDICATION ----- Congenital Heart Defect. METHOD ----- Transabdominal ultrasound examination. View: Sufficient ----- Estrada . Number of fetuses: 1 DATING ----- ? Date ?Details ?Gest. age ?JAYE LMP ?12/15/2022 ?Cycle: irregular cycle ? 24 w + 0 d ? 09/21/2023 Prior assessment ? 02/16/2023 ? GA: 7 w + 3 d ?22 w + 3 d ? 10/02/2023 U/S ? 06/01/2023 ? based upon AC, BPD, Femur, HC ?22 w + 1 d ? 10/04/2023 Assigned dating ?Dating performed on 05/08/2023, based on the prior assessment (on 02/16/2023) ?22 w + 3 d ? 10/02/2023 GENERAL EVALUATION ----- Cardiac activity present. FHR 142 bpm. movements present. Presentation cephalic. Placenta posterior, no previa > 2 cm from internal os . Umbilical cord 3 vessel cord. Amniotic fluid Amount of AF: normal. MVP 4.7 cm. BIOMETRY ----- Main Biometry: BPD ?53.3 ?mm ? 22w 1d ?Hadlock OFD ?73.3 ?mm ? 22w 4d ?Nicolaides HC ?201.9 ?mm ?22w 2d ?Hadlock Cerebellum tr ?24.4 ? mm ?22w 3d ?Nicolaides AC ?178.3 ?mm ?22w 5d ?51% ?Hadlock Femur ?36.3 ? mm ?21w 4d ?Hadlock Weight Calculation: EFW ? 484 ? g ? 31% ?Hadlock EFW (lb,oz) ? 1 lb 1 ?oz EFW by ?Hadlock ([id number]) Head / Face / Neck Biometry: Bone Worker ? 5.4 ? mm CM ?5.2 ? mm ANATOMY ----- The following structures appear abnormal: Heart / Thorax ?4-chamber view: Left side of the heart is small . LVOT view. 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 3-vessel view: small aorta. ? 6-jkfpov-euujacy view: small aorta . The following structures appear normal: Head / Neck ? Cranium. Head size. Head shape. Lateral ventricles. Midline falx. Cavum septi pellucidi. Cerebellum. Cisterna magna. Thalami. Face ? Lips. Profile. Nose. Heart / Thorax ?RVOT view. ? Diaphragm. Abdomen ? Stomach. Kidneys. Bladder. Spine ?Cervical spine. Thoracic spine. Lumbar spine. Sacral spine. Gender: male. MATERNAL STRUCTURES ----- Cervix ?Not examined Right Ovary ?Not examined Left Ovary ?Not examined RECOMMENDATION ----- Thank-you for referring your patient for ultrasound assessment. I discussed the findings on today's ultrasound with the patient. 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 There is normal flow across the aortic valve. The left ventricle is apex forming with normal size and systolic function. Normal right ventricular size and systolic function. 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 Per cardiology, this anatomy may be dependent on PGE. She has a follow up echocardiogram on 07/14/23. She additionally opted for cell free genome analysis with results showing that they are still pending. Will plan to follow up on delay today. Plan for repeat assessment with [facility] of cardiac anatomy and growth in 4 weeks. Return to primary provider for continued care. If you have questions regarding today's evaluation or if we can be of further service, please contact the [facility]. anomalies may be present but not detected I spent a total of 15 minutes on the date of this encounter including preparing to see the patient (reviewing medical records/tests), in direct ccyf-fk-umrt contact with the patient during her visit with the majority spent counseling and discussing the plan of care and documenting the visit in the electronic medical record. Please see note for details. Procedure Note Swati Hurst MD - 06/01/2023 Comp Follow Up ----- Pat. Name: GRZEGORZ AN RA Study Date: 06/01/2023 7:57am Pat. NO: [id number] Referring MD: FRANCIA GILMAN Site: [facility] Nuisance Wildlife Control Operator: Mumtaz Ventura RDMS : 2000 Age: 22 ----- INDICATION ----- Congenital Heart Defect. METHOD ----- Transabdominal ultrasound examination. View: Sufficient ----- Estrada . Number of fetuses: 1 DATING ----- DateDetailsGest. age JAYE LMP 12/15/2022ycle: irregular cycle24 w + 0 d 09/21/2023 Prior assessment 02/16/2023 GA: 7 w +3 d22 w + 3 d 10/02/2023 U/S 06/01/2023ased upon AC, BPD, Femur, HC22 w + 1 d 10/04/2023 Assigned dating Dating performed on 05/08/2023, based onthe prior assessment (on 02/16/2023) 22 w + 3 10/02/2023 GENERAL EVALUATION ----- Cardiac activity present. FHR 142 bpm. movements present. Presentation cephalic. Placenta posterior, no previa > 2 cm from internal os . Umbilical cord 3 vessel cord. Amniotic fluid Amount of AF: normal. MVP 4.7 cm. BIOMETRY ----- Main Biometry: BPD 53.3 mm22w 1d Hadlock OFD 73.3 mm22w 4d Nicolaides HC 201.9 mm22w 2d Hadlock Cerebellum tr 24.4 mm22w 3d Nicolaides AC 178.3 mm22w 5d 51% Hadlock Femur 36.3 mm21w 4d Hadlock Weight Calculation: EFW 484 g31% Hadlock EFW (lb,oz) 1 lb 1 oz EFW by Hadlock ([id number]-FL) Head / Face / Neck Biometry: Bone Worker 5.4 mm CM 5.2 mm ANATOMY ----- The following structures appear abnormal: Heart / Thorax 4-chamber view: Left side of the heartis small . LVOT view. 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 1-rgcdsi-vezfrss view: smallaorta . The following structures appear normal: Head / Neck Cranium. Head size. Head shape.Lateral ventricles. Midline falx. Cavum septi pellucidi. Cerebellum.Cisterna magna. Thalami. Face Lips. Profile. Nose. Heart / Thorax RVOT view. Diaphragm. Abdomen Stomach. Kidneys. Bladder. Spine Cervical spine. Thoracic spine.Lumbar spine. Sacral spine. Gender: male. MATERNAL STRUCTURES ----- Cervix Not examined Right Ovary Not examined Left Ovary Not examined RECOMMENDATION ----- Thank-you for referring your patient for ultrasound assessment. Idiscussed the findings on today's ultrasound with the patient. Patient had a pediatric cardiology echocardiogram on 05/20/23 which notedmild hypoplasia of the mitral valve annulus and aortic isthmus. There isnormal flow across the aortic valve. The left ventricle is apex forming with normal size andsystolic function. Normal right ventricular size and systolic function.There is mild hypoplasia of the distal aortic arch. Per cardiology, this anatomy may be dependent on PGE. Shehas a follow up echocardiogram on 07/14/23. She additionally opted for cellfree genome analysis with results showing that they are still pending. Will plan to follow upon delay today. Plan for repeat assessment with [facility] of cardiac anatomy and growth in4 weeks. Return to primary provider for continued care. If you have questions regarding today's evaluation or if we can be offurther service, please contact the [facility]. anomalies may be present but not detected I spent a total of 15 minutes on the date of this encounter includingpreparing to see the patient (reviewing medical records/tests), in gvfwbhujuo-na-cxfb contact with the patient during her visit with the majority spent counseling and discussingthe plan of care and documenting the visit in the electronic medicalrecord. Please see note for details. IMPRESSION ----- 1. Estrada intrauterine at 22w 3d gestational age here forassessment of growth. 2. Previously noted aortic isthmus and mitral valve hypoplasia are againvisualized. 3. No other anomalies commonly detected by ultrasound were evident in thelimited anatomic survey as described above, anatomy limited bygestational age and lie. 4. Growth parameters and estimated weight were consistent withestablished dates. 5. The amniotic fluid volume appeared normal. Leyda Guzman MD [facility] US ORDERABLE S documented in this encounter Visit Diagnoses Diagnosis complicated by congenital heart disease, single or unspecified fetus documented in this encounter Care Teams Campaign Coordinator Relationship Specialty Start Date End Date No Ref-Primary, Physician PCP - General 05/08/23 documented as of this encounter
--- OUTSIDE RECORDS SUMMARY | 2023-06-30 14:15 | XMS_ITS | Encounter Summary ---
Author Name Unknown Organization [place] Address [address] [facility] [place] [address] Care Team Providers Care Packager Hand Name Role Phone No Ref-Primary, Physician Primary Care Provider Reason for Referral * Diagnostic Imaging Ultrasound (Routine) - Pending Review Specialty Diagnoses / Procedures Referred By Contac t Referred To Contact Radiology. Diagnoses abnormality affecting management of mother, single or unspecified fetus Procedures [facility] US Comprehensive Single F/U Swati Hurst MD [address] [place] [address] Referral ID Status Reason Start Date Expiration Date V isits Requested Visits Authorized [id number] Pending Review 06/01/2023 05/31/2024 1 1 Reason for Visit * Reason Comments Ultrasound RL2- CHD Encounter Details Date Type Department Care Team (Late st Contact Info) Description 06/01/2023 8:30 AM CDT Office Visit [facility] M[facility] Medicine [facility] [place] [address] [place] [address] Leyda Guzman MD [address] [place] [address] Swati Hurst MD [address] [place] [address] abnormality affecting management of mother, single or unspecified fetus (Primary Dx) Social History Tobacco Use Types [...] Progress Notes * Swati Hurst MD - 06/01/2023 8:30 AM CDT Please see Imaging tab under Chart Review for details of today's visit. Swati Hurst documented in this encounter Plan of Treatment Upcoming Encounters Date Type Department Care Team (Late st Contact Info) Description 07/14/2023 8:00 AM CDT Appointment [facility] Heart Care [address] [place] [address] 07/31/2023 2:15 PM CDT Appointment [facility] M[facility] Medicine [facility] [place] [address] [place] [phone] Swati Hurst MD [address] [place], [place] [address] 07/31/2023 2:45 PM CDT Office Visit [facility] [place] [address] [place] [phone] Swati Hurst MD [address] [place], [place] [phone] documented as of this encounter Results * M US Comprehensive Single F/U (06/29/2023 2:58 PM CDT) Anatomical Region Laterality Modality Ultrasound 06/29/2023 2:20 PM CDT Swati Hurst MD IMG M US ORDERABLE S documented in this encounter Visit Diagnoses Diagnosis abnormality affecting management of mother, single or unspecified fetus- Primary documented in this encounter Care Teams Packager Hand Relationship Specialty Start Date End Date No Ref-Primary, Physician PCP - General 05/08/23 documented as of this encounter
--- OUTSIDE RECORDS SUMMARY | 2023-06-30 14:15 | XMS_ITS | Encounter Summary ---
Author Name Unknown Organization [place] Address [address] [facility] [place] [address] Care Team Providers Care Construction Secretary Name Role Phone No Ref-Primary, Physician Primary Care Provider Encounter Details Date Type Department Care Team (Latest Contact Info) Description 05/08/2023 Travel Social History Tobacco Use Types Packs/Day [...] Info) Description 07/14/2023 8:00 AM CDT Appointment [facility] Heart Care [address] [place] [address] 07/31/2023 2:[address] [facility] Maternal Medicine [facility] [address] [place] [phone] Swati Hurst MD [address] [facility] [address] [facility] [address] [place] [address] 07/31/2023 2:45 PM CDT Office Visit [facility] Maternal Medicine [facility] [address] [place] [phone] Swati Hurst MD [address] [facility] [address] [place] [address] documented as of this encounter Visit Diagnoses Not on filedocumented in this encounter Care Teams Construction Secretary Relationship Specialty Start Date End Date No Ref-Primary, Physician PCP - General 05/08/23 documented as of this encounter
--- OUTSIDE RECORDS SUMMARY | 2023-06-30 14:15 | XMS_ITS | Encounter Summary ---
Author Name Unknown Organization [place] Address [facility] [place] [address] Care Team Providers Care Gum Dipper Name Role Phone No Ref-Primary, Physician Primary Care Provider Reason for Referral * Diagnostic Imaging Ultrasound (Routine) - Pending Review Specialty Diagnoses / Procedures Referred By Contac t Referred To Contact Radiology. Diagnoses Maternal care for other (suspected) abnormality and damage, cardiac anomalies, fetus 1 Procedures [facility] US Comprehensive Single F/U Suresh Padron MD [address] [place] [address] Referral ID Status Reason Start Date Expiration Date V isits Requested Visits Authorized [id number] Pending Review 05/08/2023 05/07/2024 1 1 GER PUBLIC * (Routine) - Closed Specialty Diagnoses / Procedures Referred By Contac t Referred To Contact Cardiology Diagnoses Maternal care for other (suspected) abnormality and damage, cardiac anomalies, fetus 1 Procedures Echo (TTE) Complete Suresh Padron MD [address] [place] [address] [facility] [address] [place] [address] Referral ID Status Reason Start Date Expiration Date Visits Re quested Visits Authorized [id number] Closed 05/08/2023 05/07/2024 1 1 GER PUBLIC Reason for Visit * Reason Comments Ultrasound L2-covid + in first tri Encounter Details Date Type Department Care Team (Late st Contact Info) Description 05/08/2023 2:45 PM MANAGER PUBLIC Office Visit [facility] Maternal Medicine [facility] [place] [address] [facility] [address] [place] [phone] Francia Epps APRN [facility] AND [address] [address] Suresh Padron MD [address] [place] [address] complicated by congenital heart disease, single or unspecified fetus (Primary Dx) Social [...] as of this encounter Progress Notes * Suresh Padron MD - 05/08/2023 2:45 PM CST Please see Imaging tab under Chart Review for details of today's visit. Suresh Padron GER PUBLIC documented in this encounter Nursing Notes * Shirley Heller, RN - 05/08/2023 2:45 PM CST Patient presents to [facility] for L2 at 19w0d due to covid + in first tri. Positive movement. Denies LOF, vaginal bleeding or cramping/contractions. SBAR given to M , see their note in Epic. GER PUBLIC documented in this encounter Plan of Treatment Upcoming Encounters Date Type Department Care Team (Late st Contact Info) Description 07/14/2023 8:[address] [facility] [address] [place] [phone] 07/31/2023 2:15 PM CDT Appointment [facility] Maternal Medicine [facility] [address] [place] [phone] Swati Hurst MD [address] [place], [place] [address] 07/31/2023 2:45 PM CDT Office Visit [facility] Medicine [place] [address] [place] [phone] Swati Hurst MD [address] [place], [place] [phone] documented as of this encounter Results * [facility] US Comprehensive Single F/U (06/01/2023 8:34 AM CDT) Anatomical Region Laterality Modality Ultrasound 06/01/2023 7:57 AM CDT Impressions 06/01/2023 9:05 AM CDT IMPRESSION ----- 1. Law intrauterine at 22w 3d gestational age here [...] CDT ?Comp Follow Up ----- Pat. Name: GRZEGORZ FERREIRAJAROSEMARY Arias ? Study Date: ??06/01/2023 7:57am Pat. NO: ??[id number] ?Referring ??MD: FRANCIA EPPS Site: ??[facility] ? Printed Circuit Board Designer: Mumtaz Ventura RDMS : ??2000 ?Age: ?? 22 ----- INDICATION ----- Congenital Heart Defect. METHOD ----- Transabdominal ultrasound examination. View: Sufficient ----- Law . Number of fetuses: 1 [...] Biometry: BPD ?53.3 ?mm ? 22w 1d ?Mecca BAUM ?73.3 ?mm ? 22w 4d ?Nicolaides HC ?201.9 ?mm ?22w 2d ?Hadlock Cerebellum tr ?24.4 ? mm ?22w 3d ?Nicolaides AC ?178.3 ?mm ?22w 5d ?51% ?Hadlock Femur ?36.3 ? mm ?21w 4d ?Hadlock Weight Calculation: EFW ? 484 ? g ? 31% ?Hadlock EFW (lb,oz) ? 1 lb 1 ?oz EFW by ?Hadlock ([id number]-FL) Head / Face / Neck Biometry: Plywood Scarfer Tender ? 5.4 ? mm CM ?5.2 ? mm ANATOMY ----- The following structures appear abnormal: Heart / Thorax ?4-chamber view: Left side of the heart is small . LVOT view. 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 3-vessel view: small aorta. ? 4-yjvems-kzdvlmj view: small aorta . The following structures [...] delay today. Plan for repeat assessment with MFM of cardiac anatomy and growth in 4 [...] the patient (reviewing medical records/tests), in direct ivho-wg-aoof contact with the patient during her visit with the majority spent counseling and discussing the plan of care and documenting the visit in the electronic medical record. Please see note for details. Procedure Note Swati Hurst MD - 06/01/2023 Comp Follow Up ----- Pat. Name: ROSEMARY NARAYAN Study Date: 06/01/2023 7:57am Pat. NO: [id number] Referring MD: FRANCIA EPPS Site: [facility] Printed Circuit Board Designer: Mumtaz Ventura RDMS : 2000 Age: 22 ----- INDICATION ----- Congenital Heart Defect. METHOD ----- Transabdominal ultrasound examination. View: Sufficient ----- Law . Number of fetuses: 1 [...] 1 lb 1 oz EFW by Hadlock ([id number]-FL) Head / Face / Neck Biometry: Plywood Scarfer Tender 5.4 mm CM 5.2 mm ANATOMY ----- The following structures appear abnormal: Heart / Thorax 4-chamber view: Left side of the heartis small . LVOT view. 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 8-eifubo-eyjkard view: smallaorta . The following structures appear [...] delay today. Plan for repeat assessment with MFM of cardiac anatomy and growth in4 weeks. Return to primary provider for continued care. If you have questions regarding today's evaluation or if we can be offurther service, please contact the [facility]. anomalies may be present but not detected I spent a total of 15 minutes on the date of this encounter includingpreparing to see the patient (reviewing medical records/tests), in hqqzsnxyiu-zu-ncno contact with the patient during her visit with the majority spent counseling and discussingthe plan of care and documenting the visit in the electronic medicalrecord. Please see note for details. IMPRESSION ----- 1. Law intrauterine at 22w 3d gestational age here forassessment of growth. 2. Previously noted aortic isthmus and mitral valve hypoplasia are againvisualized. 3. No other anomalies commonly detected by ultrasound were evident in thelimited anatomic survey as described above, anatomy limited bygestational age and lie. 4. Growth parameters and estimated weight were consistent withestablished dates. 5. The amniotic fluid volume appeared normal. Suresh Padron MD [facility] ORDERABLE S * ECHO COMPLETE (05/20/2023 9:52 AM MANAGER PUBLIC) Anatomical Region Laterality Modality Echocardiography 05/20/2023 8:11 AM MANAGER PUBLIC Narrative 05/20/2023 10:23 AM MANAGER PUBLIC [id number]^NEREIDA^SURESH ? Study ID: [id number] ?[facility] ?[facility] ?[address] [facility] ?[place] [address] ? Echocardiogram Name: GRZEGORZ AN ROSEMARY L Study Date: 05/20/2023 08:11 AM ? Patient [...] to the left atrium. There is laminar qdvse-ec-mafc shunting across the foramen ovale. Atrioventricular valves: [...] Procedure Note Yifan Aponte MD - 05/20/2023 [id number]^NEREIDA^SURESH Study ID:[id number] [facility] [address] [address] Echocardiogram Name: ROSEMARY NARAYAN Study Date: 05/20/2023 08:11 AM Patient [facility]: [facility] Gender: Female Patient Class:Outpatient : 2000 Age: [...] in to the left atrium. There is fqtovbnwejxp-ds-artu shunting across the foramen ovale. Atrioventricular valves: [...] Padron MD CV PEDS ECHO ORDERAB LES documented in this encounter Visit Diagnoses Diagnosis complicated by congenital heart disease, single or unspecified fetus- Primary complicated by congenital heart disease, single or unspecified fetus complicated by congenital heart disease, single or unspecified fetus documented in this encounter Care Teams Gum Dipper Relationship Specialty Start Date End Date No Ref-Primary, Physician PCP - General 05/08/23 documented as of this encounter
--- OUTSIDE RECORDS SUMMARY | 2023-06-30 14:15 | XMS_ITS | Encounter Summary ---
Author Name Unknown Organization [facility] Address [address] [place] [address]. [place] [address] Care Team Providers Care Completion Manager Name Role Phone No Ref-Primary, Physician Primary Care Provider Encounter Details Date Type Department Care Team (Late st Contact Info) Description 05/08/2023 Medical Correspondence [facility] [address] [place] [phone] Scan, Non-Provider Social History Tobacco Use Types Packs/Day Years [...] 8:00 AM CDT Appointment [facility] [address] [place] [address] 07/31/2023 2:[address] [facility] [place] [address] [place] [address] Swati Hurst MD [address] [place] [address] 07/31/2023 2:45 PM CDT Office Visit [facility] [place] [address] [place] [address] Swati Hurst MD [address] [place] [address] [address] [place] [address] documented as of this encounter Visit Diagnoses Not on filedocumented in this encounter Care Teams Completion Manager Relationship Specialty Start Date End Date No Ref-Primary, Physician PCP - General 05/08/23 documented as of this encounter
--- OUTSIDE RECORDS SUMMARY | 2023-06-30 14:15 | XMS_ITS | Encounter Summary ---
Author Name Unknown Organization [facility] Address [address] [place] [id number] Care Team Providers Care Chief Clerk Name Role Phone No Ref-Primary, Physician Primary Care Provider Encounter Details Date Type Department Care Team ([facility] st Contact Info) Description 05/20/2023 Office Visit [facility] [address] [place] [address] Yifan Aponte MD [address] [place] [address] Anomaly of heart of fetus affecting , antepartum, single or unspecified fetus (Primary Dx) Social [...] as of this encounter Progress Notes * Yifan Aponte MD - 05/20/2023 7:58 AM CST [facility] Consult Note Patient: Rosemary Osborne Date of : 2000 Age: [age] year old Date of Visit: 05/20/2023 PCP: No Ref-Primary, Physician Dear Doctor: I had the pleasure of seeing Rosemary Osborne at the [facility] on 05/20/2023 in cardiology consultation for echocardiogram results. She presented today accompanied by ernesto. As you know, she is a 22 year old at 20w5d who presented for echocardiogram today because of concern for hypoplastic left heart structures. I performed and interpreted the echocardiogram today, which demonstrated: Normal cardiac anatomy. Mild hypoplasia of the [...] heart rate is regular at 145 bpm. I reviewed today's findings with Rosemary Osborne and her partner with the help of a diagram. 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 The left ventricle is apex normal sized, I do not suspect hypoplastic left heart. I am concerned that the baby will have coarctation given the size and appearance of the distal aortic arch. I discussed the importance of monitoring these patients to follow left heart growth over time. I suspect the baby will require delivery at [facility] but this will be determined at future visits. Plan for follow-up in 8 weeks for repeat echocardiogram. Family had appropriate questions which I addressed. Plan: 1. This anatomy may be dependent on PGE, will determine at future visits 2. Plan for echocardiogram and cardiology consultation after 2. Follow-up in 8 weeks Thank you for allowing me to participate in Rosemary's care. Please do not hesitate to contact me withquestions or concerns. This visit was separate from the performance and interpretation of the ultrasound. The majority of the time (>50%) was spent in counseling and coordination of care. I spent a total of 45 minutes on the day of the visit. Michi Aponte M.D. Pediatric Cardiology [facility] [address] Academic Office Building [facility], [place] [phone] NG MACHINERY ASSEMBLER documented in this encounter Plan of Treatment Upcoming Encounters Date Type Department Care Team (Late st Contact Info) Description 07/14/2023 8:00 AM CDT Appointment [facility] [address] [place] [address] 07/31/2023 2:15 PM CDT Appointment [facility] Maternal Medicine [facility] [address] [place] [phone] Swati Hurst MD [address] [place], [place] [phone] 07/31/2023 2:45 PM CDT Office Visit [facility] Maternal Medicine [facility] [address] [place] [phone] Swati Hurst MD [address] [place], [place] [address] documented as of this encounter Visit Diagnoses Diagnosis Anomaly of heart of fetus affecting , antepartum, single or unspecified fetus- Primary documented in this encounter Care Teams Chief Clerk Relationship Specialty Start Date End Date No Ref-Primary, Physician PCP - General 05/08/23 documented as of this encounter
--- OUTSIDE RECORDS SUMMARY | 2023-06-30 14:15 | XMS_ITS | Encounter Summary ---
Author Name Unknown Organization [facility] Address [address] [facility] [place] [address] Care Team Providers Care Education Intern Name Role Phone No Ref-Primary, Physician Primary Care Provider Encounter Details Date Type Department Care Team (Late st Contact Info) Description 05/12/2023 Documentation Only [facility] [place] [address] [place] [phone] Kody Davey GC [address] [place] [address] Social History Tobacco Use Types Packs/Day Years [...] Telephone Encounter - Kody Davey GC - 05/12/2023 1:38 PM ARRT TECHNOLOGIST 05/12/2023 Received notification from [facility] that Rosemary has already completed standard NIPT through her primary OB, and that prior testing will be amended to include the expanded materniTGenome analysis instead of processing the sample collected last week with [facility]. Kody Davey MS, [facility] Licensed Genetic Counselor Pager: [phone] TECHNOLOGIST documented in this encounter Plan of Treatment Upcoming Encounters Date Type Department Care Team (Late st Contact Info) Description 07/14/2023 8:00 AM CDT Appointment [facility] Heart Care [address] [place] [address] 07/31/2023 2:15 PM CDT Appointment [facility] Maternal Medicine [facility] [address] [place] [phone] Swati Hurst MD [address] [place], [place] [phone] 07/31/2023 2:45 PM CDT Office Visit [facility] Medicine [facility] [address] [place] [phone] Swati Hurst MD [address] [place], [place] [phone] documented as of this encounter Visit Diagnoses Not on filedocumented in this encounter Care Teams Education Intern Relationship Specialty Start Date End Date No Ref-Primary, Physician PCP - General 05/08/23 documented as of this encounter
--- OUTSIDE RECORDS SUMMARY | 2023-06-30 14:15 | XMS_ITS | Encounter Summary ---
Author Name Unknown Organization [facility] Address [address] [facility] [place] [address] Care Team Providers Care Autoclave Operator Name Role Phone No Ref-Primary, Physician Primary Care Provider Reason for Visit * Reason Comments Genetic Counseling Complex heart defect * Consultation (Routine: Next available opening) - Pending Review Specialty Diagnoses / Procedures Referred By Adonis t Referred To Contact Diagnoses Abnormal ultrasound abnormality affecting management of mother, single or unspecified fetus Encounter for procreative genetic counseling and testing Leyda Guzman MD [address] [place] [address] Referral ID Status Reason Start Date Expiration Date V isits Requested Visits Authorized [id number] Pending Review 05/08/2023 05/07/2024 1 1 Encounter Details Date Type Department Care Team (Late st Contact Info) Description 05/08/2023 3:00 PM DIRECTOR OCCUPATIONAL Office Visit [facility] [place] [address] [facility] [address] [place] [address] Leyda Guzman MD [address] [place] [address] Kody Davey GC [address] [place] [address] Abnormal ultrasound; abnormality affecting management of mother, [...] as of this encounter Progress Notes * Kody Davey GC - 05/08/2023 3:00 PM CST [facility] Genetic Counseling Consult Patient: Rosemary Osborne Preferred Name: Rosemary Date of : 2000 Date of Service: 05/08/23 Rosemary was seen at the [facility] for genetic consultation. The indication for genetic counseling is abnormal ultrasound. The patient was accompanied to this visit by their partner. The session was conducted in [place]. A welfare interviewer was offered and declined. IMPRESSION/ PLAN 1. 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 2. During today's [facility] visit, Rosemary had a blood draw for non-invasive testing (also called NIPT, NIPS, or cell-free DNA), called MaterniT Genome, through [employer]. This NIPT screens for genome-wide aneuploidies. The patient opted to screen for sex chromosome aneuploidies, including reported sex. Results are expected in 7-10 days. The patient will be called with results and if they do not answer they requested a detailed message with results on their voicemail. Patient was informed that results will be available in [employer]. 3. Rosemary had a level II comprehensive anatomy ultrasound today. Please see the ultrasound report for further details. 5. Further recommendations include a follow up level II ultrasound and echocardiogram with [facility]. The appointment(s) has not been scheduled yet. [facility] schedulers will reach out or the patient can call [phone]. HISTORY /Parity: CURRENT Current Age: [age] year old Age at Delivery: 23 year old JAYE: 10/02/2023, by Ultrasound Gestational Age: 19w0d This is a single gestation. This was conceived spontaneously. Rosemary reports the following complications and/or exposure concerns in this : NONE MEDICAL HISTORY Rosemary???s reported medical history is not expected to impact management or risks to fetaldevelopment. RISK ASSESSMENT FOR CHROMOSOME CONDITIONS We explained that the risk for chromosome abnormalities increases with maternal age. We discussed specific features of common chromosome abnormalities, including Down syndrome, trisomy 13, trisomy 18, and sex chromosome trisomies. At age 22 at midtrimester, the risk to have a baby with Down syndrome is 1 in 1114. At age 22 at midtrimester, the risk to have a baby with any chromosome abnormality is 1 in 557. 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 We discussed that heart defects are most often a random/sporadic event, without an identifiable underlying genetic cause, however,the presence of a heart defect does increase the risks for the to have a genetic condition. We discussed that genetic disorders such as Down syndrome, trisomy 18/13, and Cordova syndrome (monosomy X) are associated with high risks for heart defects. We discussed that there are other more rare conditions associated with heart defects as well. We discussed the availability of amniocentesisfor diagnostic testing, which was declined for the time being. We also discussed the availability of genetic screening for chromsome abnormalities with NIPT with no risk to the . After reviewing the benefits and limitations of testing, Rosemary opted to have blood drawn for NIPT today. We discussed that further testing may be offered later in as she has further evaluations, we also discussed that genetic testing could be coordinated after the end of the as well, and genetic counseling will work with her over the course of the to discuss and coordinate testing as indicated. We briefly discussed that some families may have questions about not continuing a based on ultrasound findings or genetic test results, and that genetic counseling can help facilitate that discussion and care if needed. The couple did not indicate if this is something theywould consider. GENETIC TESTING OPTIONS Genetic testing during a includes screening and diagnostic procedures. Screening tests are non-invasive which means no risk to the and includes ultrasounds and blood work. The benefits and limitations of screening were reviewed. Screening tests provide a risk assessment (chance) specific to the for certain chromosome abnormalities but cannot definitively diagnose or exclude a chromosome abnormality. Follow-up genetic counseling and consideration of diagnostic testing is recommended with any abnormal screening result. Diagnostic testing during a is more certain and can test for more conditions. However, the tests do have a risk of miscarriage that requires careful consideration. These tests can detect chromosome ab normalities with greater than 99% certainty. Results can be compromised by maternal cell contamination or mosaicism and are limited by the resolution of current genetic testing technology. There is no screening or diagnostic test that detects all forms of defects or intellectual disability. We discussed the following screening options: Non-invasive testing (NIPT) Also called cell-free DNA screening because it detects chromosomes from the placenta in the person's blood Can be done any time after 10 weeks gestation Standard recommendation for NIPT screens for trisomy 21, trisomy 18, trisomy 13, with the option ofadding sex chromosome aneuploidies, without or without predicted sex Cannot screen for open neural tube defects, maternal serum AFP after 15 weeks is recommended New NIPT options include screening for other trisomies, microdeletion syndromes, and in some cases blood antigens. Guidelines do not recommend these conditions are included in standard screening. These options have limitations and should be discussed with a genetic counselor. However, current (2022) ACMG guidelines do recommend that screening for one microdeletion syndrome,called 22q11.2 deletion syndrome be offered to all patients. 22q11.2 deletion syndrome hasan estimated prevalence of 1 in 990 to 1 in 2148 (0.05-0.1%). Risk is not thought to increase with maternal age. Clinical features are variable but include risks for congenital heart defects, cleft palate, developmental delays, immune system deficiencies, and hearing loss. Approximately 90% of cases are de clifford (a sporadic new change in a ). Cell-free DNA screening for 22q11.2 deletion syndrome is available (Expanded NIPS through [employer]). We discussed the limitations of cell -free DNA screening in detecting microdeletions and the possiblity of false positives and false negatives. Expanded NIPS also allows for reflex to include other microdeletion conditions and rare autosomal trisomies if an indication would arise later in the . The patient opted into microdeletion syndrome screening. AFP only Blood work from arm for levels of AFP (alpha-fetoprotein) Can be done between 14w1d and 23w6d gestation Screens for open neural tube defects like spina bifida Recommended for those that do not want genetic testing (for chromosome conditions), those who did screening other than the quad screen, and those with a personal or family history of neural tube defects. We discussed the following ultrasound options: Nuchal translucency (NT) ultrasound Ultrasound between [id number] that includes nuchal translucency measurement and nasal bone assessments Nuchal translucency refers to the space at the back of the neck where fluid builds up. All babies at this stage have fluid and there is only concern if there is too much fluid Nasal bone refers to the small bone in the nose. There is concern for conditions like Down syndromeif the bone cannot be seen at all This ultrasound can be done as part of first trimester screening, at the same time as another screen (NIPT), at the same time as a CVS, or if the patients does not want genetic screening. Markers on ultrasound detects about 70% of pregnancies with aneuploidy Abnormalities on NT ultrasound can also increase the risk for a defect, like a heart defect Comprehensive level II ultrasound ( Anatomy Ultrasound) Ultrasound done between 18-20 weeks gestation Screens for major defects and markers for aneuploidy (like trisomy 21 and trisomy 18) Includes looking at the fetus/baby's growth, heart, organs (stomach, kidneys), placenta, and amniotic fluid We discussed the following diagnostic options: Chorionic villus sampling (CVS) Invasive diagnostic procedure done between 10w0d and 13w6d The procedure collects a small sample from the placenta for the purpose of chromosomal testing and/or other genetic testing Diagnostic result; more than 99% sensitivity for chromosome abnormalities Cannot screen for open neural tube defects, maternal serum AFP after 15 weeks is recommended Amniocentesis Invasive diagnostic procedure done after 15 weeks gestation The procedure collects a small sample of amniotic fluid for the purpose of chromosomal testing and/or other genetic testing Diagnostic result; more than 99% sensitivity for chromosome abnormalities Testing for AFP in the amniotic fluid can test for open neural tube defects It was a pleasure to be involved with Rosemary???s anayeli. Ycat-rb-alfm time of the meeting was 15 minutes. Kody Davey, ISSA, MS, [facility] Board Certified and [place] Licensed Genetic Counselor [facility] Maternal Medicine Office: [phone] MFM: [phone] [facility] MFM CTOR OCCUPATIONAL documented in this encounter Plan of Treatment Upcoming Encounters Date Type Department Care Team (Late st Contact Info) Description 07/14/2023 8:00 AM CDT Appointment [facility] Heart Care [address] [place] [address] 07/31/2023 2:15 PM CDT Appointment [facility] Maternal Medicine [facility] [address] [place] [phone] Swati Hurst MD [address] [place] [address] 07/31/2023 2:45 PM CDT Office Visit [facility] Maternal Medicine [facility] [address] [place] [phone] Swati Hurst MD [address] [place], [place] [address] Pending Results Name Type Priority Associated Diagnoses Date /Time Other Laboratory; [facility]; MaterniT Genome NIPT (Laboratory Miscellaneous Order) Lab Routine Abnormal ultrasound abnormality affecting management of mother, single or unspecified fetus Encounter for procreative genetic counseling and testing 05/08/2023 4:55 PM DIRECTOR OCCUPATIONAL Scheduled Orders Name Type Priority Associated Diagnoses Orde r Schedule Other Laboratory; [facility]; MaterniT Genome NIPT (Laboratory Miscellaneous Order) Lab Routine Abnormal ultrasound abnormality affecting management of mother, single or unspecified fetus Encounter for procreative genetic counseling and testing Expected: 05/08/2023 (Approximate), Expires: 05/08/2024 documented as of this encounter Visit Diagnoses Diagnosis Abnormal ultrasound Abnormal findings on screening abnormality affecting management of mother, single or unspecified fetus Encounter for procreative genetic counseling and testing documented in this encounter Care Teams Autoclave Operator Relationship Specialty Start Date End Date No Ref-Primary, Physician PCP - General 05/08/23 documented as of this encounter
== END 2023-06-30 14:12 | disposition home or self-care (01) ==
LOC: NFLDREF 14:12
PROVIDERS: Visit Provider Obstetrics & Gynecology
DX: Z34.92 Encounter for supervision of normal pregnancy, unspecified, second trimester (principal)
CPT/HCPCS: 86592; 87086

== ENCOUNTER 2023-08-07 08:15 | Outpatient (CLI) | payer MEDICAID, SELFPAY ==
--- NOTE | 2023-08-07 08:15 | CRLHL7_ITS ---
For Patients: As a result of the Century Cures Act, medical imaging exams and procedure reports are released immediately into your electronic medical record. You may view this report before your referring provider. If you have questions, please contact your health care provider. INDICATION: congenital heart defect COMPARISON: none TECHNIQUE: Real time bolden scale imaging of the fetus was performed. Without non-stress testing. FINDINGS: Sonographic imaging demonstrates a single living intrauterine gestation. Fetus demonstrates a regular cardiac rate of 135 beats per minute. Fetus has a vertex position. The amniotic fluid volume appears normal and there is a single deepest pocket measurement of 5.4 cm. The fetus was active and demonstrated normal breathing movements. There was normal flexion and extension of the trunk and extremities. IMPRESSION: Normal biophysical profile score of 8 out of 8. Dictated by Ayo Anglin MD @ 08/07/2023 10:07:23 AM (Electronically Signed)
--- OUTSIDE RECORDS SUMMARY | 2023-08-07 08:17 | XMS_ITS | Clinical Summary ---
Author Organization [facility] Address [address] [place] [address] Care Team Providers Care Urology Teacher Name Role Phone No Ref-Primary, Physician Primary Care Provider Active Problems Patient Care Coordination No te Formatting of this note is d ifferent from the original. [facility] Care Plan: For details of imaging, genetic testing and consultations, please see the maternal medical record: Rosemary Gutierres Wilfrido Toledos MR#:[id number] Delivery hospital: [facility] DIAGNOSIS: DIAGNOSIS / DIAGNOSES: 1) CHD-coarcation of the aorta GENETIC (and other) TESTING: MaterniT Genome neg PERTINENT MATERNAL CONDITIONS: 1) + Chlamydia 02/16/23 CARE PLAN: 1) Ultrasounds - q 4 08/30 2) Other Imaging - echo 05/19, 07/13, 08/18 3) surveillance - weekly BPP at 32 weeks 4) Relocation - 5) care with [facility] 6) Labs - (look in media tab / care everywhere for results) Blood type: O+ Ab screen: neg HepBSAg: neg Rubella: Immune RPR: NR HIV: neg Hep C: neg GCT: 88 06/29/13 GBS: PAP: needs PP 7) Vaccines: Tdap- 07/27 Flu Vaccine- 8) PHQ-9: 9) care team and consultations - A) Genetic Counselor - Kody B) Neonatology - 08/18 C) Social Work - D) CV Surg? DELIVERY PLAN: 1) Hospital - [facility] 2) Gestational age - term 3) Route - 4) Notifications in labor - 5) Genetics/specimen collection for baby: Needs consent for cordblood testing ([id number]) BABY PLAN: 1) Baby to go to NICU 2) Imaging to be done - A) immediately after - Echocardiogram B) prior to hospital discharge - medical genetics C) after discharge from the hospital - 3) Consults to be done - A) immediately after - Peds Cards B) prior to hospital discharge - C) after discharge from the hospital - 4) Medications - anatomy maybe dependent on the ductus arteriosus, and PGE maybe needed following delivery. REFERRING PROVIDER(S): 1) Primary OB Provider: 2) Other Sub-Specialty Provider: 3) Anticipated Pediatric Provider: DEMOGRAPHICS: Patient contact info: [address] [facility] [address] Partner's name: Baby's name: Estimated Date of Delivery Comme nts Yes 10/02/2023 Based on Ultraso und No additional problems on file Encounters Date Type Department Care Team Description 08/04/2023 Orders Only [facility] Maternal Medicine [facility] [address] [place] [address] Louise Haley GC Abnormal ultrasound (Primary Dx) 08/04/2023 Telephone [facility] Maternal Medicine [facility] [address] [place] [address] Shaunna Nolasco, RN Appointment 08/04/2023 Orders Only [facility] Medicine [facility] [address] [place] [address] Shaunna Nolasco RN related condition, antepartum (Primary Dx) 08/03/2023 Telephone [facility] Medicine [facility] [address] [place] [address] Shaunna Nolasco RN Appointment 08/03/2023 Orders Only [facility] Medicine [facility] [address] [place] [address] Shaunna Nolasco RN related condition, antepartum (Primary Dx) 07/31/2023 2:45 PM CDT Office Visit [facility] Maternal Medicine [facility] [address] [place] [address] Jair Sanchez MD complicated by congenital heart disease, single or unspecified fetus (Primary Dx) 07/31/2023 2:08 PM CDT - 07/31/2023 11:59 PM CDT Hospital Encounter [facility] Maternal [facility] [address] [place] [address] Jair Sanchez MD Congenital heart defect Discharge Disposition: Home or Self Care 07/31/2023 Travel 07/14/2023 7:45 AM CDT - 07/14/2023 11:59 PM CDT Hospital Encounter [facility] [address] [place] [phone] Yifan Aponte MD Anomaly of heart of fetus affecting , antepartum, single or unspecified fetus Discharge Disposition: Home or Self Care 07/14/2023 Office Visit [facility] [address] [place] [phone] Carlos Alberto Ott MD cardiac disease affecting , single or unspecified fetus (Primary Dx) 07/14/2023 Travel 07/07/2023 Orders Only [facility] [address] [place] [phone] Yifan Aponte MD Anomaly of heart of fetus affecting , antepartum, single or unspecified fetus (Primary Dx) 06/29/2023 2:45 PM CDT Office Visit [facility] Maternal [facility] [address] [place] [address] Swati Hurst MD Congenital heart defect (Primary Dx) 06/29/2023 2:15 PM CDT - 06/29/2023 11:59 PM CDT Hospital Encounter [facility] Maternal [facility] [address] [place] [address] Swati Hurst MD abnormality affecting management of mother, single or unspecified fetus Discharge Disposition: Home or Self Care 06/29/2023 Travel 06/01/2023 8:30 AM CDT Office Visit [facility] Maternal [facility] [address] [place] [address] Suresh Padron MD Burn, Martina, MD abnormality affecting management of mother, single or unspecified fetus (Primary Dx) 06/01/2023 7:52 AM CDT - 06/01/2023 11:59 PM CDT Hospital Encounter [facility] Medicine [facility] [address] [place] [address] Suresh Padron MD Burn, Martina, MD complicated by congenital heart disease, single or unspecified fetus Discharge Disposition: Home or Self Care 06/01/2023 Telephone [facility] Maternal Medicine [address] [address] Kody Davey 06/01/2023 Travel 05/21/2023 MyC Medical Advice [facility] [address] [place] [phone] Kym Little RN 05/20/2023 7:55 AM LEATHER SEASONER - 05/20/2023 11:59 PM LEATHER SEASONER Hospital Encounter [facility] [address] [place] [phone] Suresh Padron MD complicated by congenital heart disease, single or unspecified fetus Discharge Disposition: Home or Self Care 05/20/2023 Office Visit [facility] [address] [place] [phone] Yifan Aponte MD Anomaly of heart of fetus affecting , antepartum, single or unspecified fetus (Primary Dx) 05/20/2023 Travel 05/12/2023 Documentation Only [facility] Maternal Medicine [address] [address] Kody Davey GC from Last 3 Months Immunizations Name Administration Dates Next Due TDAP (Adacel,Boostrix) 07/28/2023,07/19/2019 Social History Tobacco Use Types Packs/Day Years [...] Care Team (Late st Contact Info) Description 08/19/2023 9:30 AM CDT Office Visit [facility] Maternal Medicine [address] [phone] Jair Sanchez MD [address] [place] [phone] 08/19/2023 9:30 AM CDT Office Visit [facility] [employer] [address] [place] [phone] 08/19/2023 10:30 AM CDT Office Visit [facility] Maternal Medicine [address] [phone] Jair Sanchez MD [address] [place] [phone] 08/19/2023 11:00 AM CDT Appointment [facility] [address] [place] [phone] Urmfmusfet 08/19/2023 11:45 AM CDT Appointment [facility] Maternal Medicine [address] [phone] Jair Sanchez MD [address] [place] [phone] 08/19/2023 12:15 PM CDT Office Visit [facility] Maternal Medicine [facility] [address] [place] [address] Jair Sanchez MD [address] [phone] 08/31/2023 2:15 PM CDT Appointment [facility] Maternal Medicine [facility] [address] [place] [address] Jair Sanchez MD [address] [phone] 08/31/2023 2:45 PM CDT Office Visit [facility] Maternal Medicine [facility] [address] [place], [place] [address] Jair Sanchez MD [address] [phone] 08/31/2023 3:00 PM CDT Office Visit [facility] Maternal Medicine [facility] [address] [place], [place] [phone] Swati Hurst MD [address] [phone] Health Maintenance Due Date Last Done Comments ADVANCE CARE PLANNING 1999 ANNUAL REVIEW OF HM ORDERS 1999 YEARLY PREVENTIVE VISIT 1999 Pneumococcal Vaccine: Pediatrics (0 to 5 Years) and At-Risk Patients (6 to 64 Years) (1 of 2 - PCV) 08/21/2005 HIV SCREENING 08/21/2014 HEPATITIS C SCREENING 08/21/2017 HEPATITIS B IMMUNIZATION (1 of 3 - 19+ 3-dose series) 08/21/2018 CHLAMYDIA SCREENING 05/20/2022 05/20/2021 MATERNAL SCREENING DISCUSSION 03/06/2023 PHQ-2 (once per calendar year) 2023 OBGCT (OB) 06/12/2023 DTAP/TDAP/TD IMMUNIZATION (3 - Td or Tdap) 01/28/2024 07/28/2023, 07/19/2019 PAP 09/12/2025 09/12/2022, 09/12/2022 HPV IMMUNIZATION Completed [...] Procedure Name Priority Date/Time Associated Diagnosis Comments [facility] COMPREHENSIVE SINGLE F/U Routine 07/31/2023 2:45 PM CDT Congenital heart defect ECHO COMPLETE Routine 07/14/2023 1 0:10 AM CDT Anomaly of heart of fetus affecting , antepartum, single or unspecified fetus [facility] COMPREHENSIVE SINGLE F/U Routine 06/29/2023 2:58 PM CDT abnormality affecting management of mother, single or unspecified fetus [facility] COMPREHENSIVE SINGLE F/U Routine 06/01/2023 8:34 AM CDT complicated by congenital heart disease, single or unspecified fetus ECHO COMPLETE Routine 05/20/2023 9 :52 AM LEATHER SEASONER complicated by congenital heart disease, single or unspecified fetus from Last 3 Months Results * [facility] US Comprehensive Single F/U (07/31/2023 2:45 PM CDT) Only the most recent of3 resultswithin the time period is included. Anatomical Region Laterality Modality Ultrasound 07/31/2023 2:19 PM CDT Impressions 07/31/2023 2:59 PM CDT IMPRESSION ----- 1. Law at 31w 0d gestational age. 2. 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 2. None of the other anomalies commonly detected by ultrasound were evident in the limited anatomic survey as described above. 3. Growth parameters and estimated weight were consistent with AGA growth. 4. The amniotic fluid volume appeared normal. Narrative 07/31/2023 2:59 PM CDT ?Comp Follow Up ----- Pat. Name: ROSEMARY NARAYAN ? Study Date: ??07/31/2023 2:19pm Pat. NO: ??[id number] ?Referring ??MD: FRANCIA GILMAN Site: ??[facility] ? Professor Of Medicine: Justyna Calixto RDMS : ??2000 ?Age: ?? 22 ----- INDICATION ----- Congenital Heart Defect. METHOD ----- Transabdominal ultrasound examination. View: Sufficient ----- Law . Number of fetuses: 1 DATING ----- ? Date ?Details ?Gest. age ?JAYE LMP ?12/15/2022 ?Cycle: irregular cycle ? 32 w + 4 d ? 09/21/2023 Prior assessment ? 02/16/2023 ? GA: 7 w + 3 d ?31 w + 0 d ? 10/02/2023 U/S ? 07/31/2023 ? based upon AC, BPD, Femur, HC ?31 w + 1 d ? 10/01/2023 Assigned dating ?Dating performed on 05/08/2023, based on the prior assessment (on 02/16/2023) ?31 w + 0 d ? 10/02/2023 GENERAL EVALUATION ----- Cardiac activity present. FHR 115 bpm. movements present. Presentation cephalic. Placenta posterior, no previa > 2 cm from internal os . Umbilical cord 3 vessel cord. Amniotic fluid Amount of AF: normal. MVP 5.2 cm. BIOMETRY ----- Main Biometry: BPD ?80.2 ?mm ? 32w 1d ?Hadlock OFD ?98.4 ?mm ? 29w 1d ?Nicolaides HC ?284.4 ?mm ?31w 2d ?Hadlock Cerebellum tr ?38.5 ? mm ?32w 5d ?Nicolaides AC ?271.1 ?mm ?31w 1d ?53% ?Hadlock Femur ?57.2 ? mm ?30w 0d ?Hadlock Weight Calculation: EFW ? 1,661 ?g ? 35% ?Hadlock EFW (lb,oz) ? 3 lb 11 ? oz EFW by ?Hadlock ([id number]) Head / Face / Neck Biometry: Stock Car Driver ? 4.0 ? mm CM ?5.2 ? mm ANATOMY ----- The following structures appear abnormal: Heart / Thorax ?4-chamber view: See Echo report by [facility] from 05/20/2023. LVOT view. 3-vessel view. 6-axznhk-bnnkcoq view. The following structures appear normal: Head / Neck ? Cranium. Head size. Head shape. Lateral ventricles. Midline falx. Cavum septi pellucidi. Cerebellum. Cisterna magna. Thalami. Face ? Lips. Profile. Nose. Heart / Thorax ?RVOT view. ? Diaphragm. Abdomen ? Stomach. Kidneys. Bladder. Spine ?Cervical spine. Thoracic spine. Lumbar spine. Sacral spine. Gender: male. MATERNAL STRUCTURES ----- Cervix ?Suboptimal Right Ovary ?Not examined Left Ovary ?Not examined RECOMMENDATION ----- We discussed the findings on today's ultrasound with the patient. We recommend that the patient begin weekly BPPs. She would like the BPPs to be at your office. We will plan to reassess growth at [facility] in 4 weeks. Return to primary provider for continued care. Thank-you for the opportunity to participate in the care of this patient. If you have questions regarding today's evaluation or if we can be of further service, please contact the Maternal- Medicine Center. anomalies may be present but not detected Procedure Note Jair Sanchez MD - 07/31/2023 Comp Follow Up ----- Pat. Name: ROSEMARY NARAYAN Study Date: 07/31/2023 2:19pm Pat. NO: [id number] Referring MD: FRANCIA GILMAN Site: [facility] Professor Of Medicine: Justyna Calixto RDMS : 2000 Age: 22 ----- INDICATION ----- Congenital Heart Defect. METHOD ----- Transabdominal ultrasound examination. View: Sufficient ----- Law . Number of fetuses: 1 DATING ----- DateDetailsGest. age JAYE LMP 12/15/2022ycle: irregular cycle32 w + 4 d 09/21/2023 Prior assessment 02/16/2023 GA: 7 w +3 d31 w + 0 d 10/02/2023 U/S 07/31/2023ased upon AC, BPD, Femur, HC31 w + 1 d 10/01/2023 Assigned dating Dating performed on 05/08/2023, based onthe prior assessment (on 02/16/2023) 31 w + 0 10/02/2023 GENERAL EVALUATION ----- Cardiac activity present. FHR 115 bpm. movements present. Presentation cephalic. Placenta posterior, no previa > 2 cm from internal os . Umbilical cord 3 vessel cord. Amniotic fluid Amount of AF: normal. MVP 5.2 cm. BIOMETRY ----- Main Biometry: BPD 80.2 mm32w 1d Hadlock OFD 98.4 mm29w 1d Nicolaides HC 284.4 mm31w 2d Hadlock Cerebellum tr 38.5 mm32w 5d Nicolaides AC 271.1 mm31w 1d 53% Hadlock Femur 57.2 mm30w 0d Hadlock Weight Calculation: EFW 1,661 g35% Hadlock EFW (lb,oz) 3 lb 11 oz EFW by Hadlock ([id number]) Head / Face / Neck Biometry: Stock Car Driver 4.0 mm CM 5.2 mm ANATOMY ----- The following structures appear abnormal: Heart / Thorax 4-chamber view: See Echo reportby [facility] from 05/20/2023. LVOT view. 3-vessel view.5-vhpzhz-wgkozat view. The following structures appear normal: Head / Neck Cranium. Head size. Head shape.Lateral ventricles. Midline falx. Cavum septi pellucidi. Cerebellum.Cisterna magna. Thalami. Face Lips. Profile. Nose. Heart / Thorax RVOT view. Diaphragm. Abdomen Stomach. Kidneys. Bladder. Spine Cervical spine. Thoracic spine.Lumbar spine. Sacral spine. Gender: male. MATERNAL STRUCTURES ----- Cervix Suboptimal Right Ovary Not examined Left Ovary Not examined RECOMMENDATION ----- We discussed the findings on today's ultrasound with the patient. We recommend that the patient begin weekly BPPs. She would like the BPPsto be at your office. We will plan to reassess growth at [facility] in 4weeks. Return to primary provider for continued care. Thank-you for the opportunity to participate in the care of this patient.If you have questions regarding today's evaluation or if we can be offurther service, please contact the Maternal- Medicine Center. anomalies may be present but not detected IMPRESSION ----- 1. Law at 31w 0d gestational age. 2. 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 2. None of the other anomalies commonly detected by ultrasound wereevident in the limited anatomic survey as described above. 3. Growth parameters and estimated weight were consistent with AGAgrowth. 4. The amniotic fluid volume appeared normal. Swati Hurst MD [facility] US ORDERABLE S * ECHO COMPLETE (07/14/2023 10:10 AM CDT) Anatomical Region Laterality Modality Echocardiography 07/14/2023 8:18 AM CDT Narrative 07/14/2023 10:23 AM CDT [id number]^ADALBERTO ? Study ID: [id number] ?[facility] ?[facility] ?[address] ?[place] [address] ? Echocardiogram Name: ROSEMARY NARAYAN Study Date: 07/14/2023 08:18 AM ? Patient [facility]: [facility] Gender: Female ?Patient Class: Outpatient : 2000 ? Age: 22 yrs Ordering Provider: YIFAN APONTE Referring Provider: YIFAN APONTE Performed By: Fabiola Sahni Physician: Carlos Alberto Ott MD Reason For Study: Anomaly of heart of fetus affecting , antepartum, singl Data: Number of fetuses: This is a law gestation. Due date: 10/02/2023. Gestational age: 28w4d. Delivery at: Undecided. Specific Indication: echocardiogram performed for suspected coarctation of the aorta. CONCLUSIONS Likely coarcation of the aorta with narrowing of the distal transverse aortic arch and aortic isthmus (difficult to measure on today's study). 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 The aortic valve annulus is normal in size (z-score of -1.26). The left ventricle is apex forming with normal systolic function. Mildly dilated right ventricle with normal systolic function. No pericardial effusion. The abnormal results of the echocardiogram were explained to the patient. A follow-up echocardiogram is recommended at 32-33 weeks gestation. Prostaglandin therapy should be commenced if there are signs of coarctation, such as poor perfusion, decreased femoral pulses or a significant upper to lower limb blood. pressure gradient. Delivery is recommended at [facility]. Cardiology consultation and echocardiogram is recommended immediately after delivery. Technical Information: A complete two dimensional, spectral and color Doppler echocardiogram is performed. [...] veins: The systemic venous return is normal. The innominate vena cava appears normal in caliber. At least one right and one left pulmonary veins are seen returning to the left atrium. Atria and atrial septum: Normal right atrial size. The left atrium is normal in size. The flap of the foramen ovale opens in to the left atrium. There is laminar ragmm-lr-ikzp shunting across the foramen ovale. Atrioventricular valves: The tricuspid valve is normal in appearance and motion. There is no tricuspid insufficiency. The mitral valve annulus Z-score is -3.4. 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 The mitral valve annulus measures 5.1 mm. There is no mitral valve insufficiency. [...] valve. The aortic valve annulus Z-score is -1.26. Great arteries: The main pulmonary artery has [...] cardiac rhythm: heart rate is regular at 133 bpm. Doppler: There is normal flow in the ductus venosus, umbilical artery and umbilical vein. echocardiography cannot rule out small atrial or ventricular septal defects, persistent ductus arteriosus, mild coarctation of the aorta, partial anomalous pulmonary venous return, minor anatomic valve anomalies or coronary artery anomalies. Reading Physician: ?Carlos Alberto Ott MD 07/14/2023 10:23 AM Procedure Note Carlos Alberto Ott MD - 07/14/2023 [id number]^ASTON^YIFAN Study ID:[id number] [facility] [address] [address] Echocardiogram Name: ROSEMARY NARAYAN Study Date: 07/14/2023 08:18 AM Patient Location: [facility] Gender: Female Patient Class:Outpatient : 2000 Age: 22 yrs Ordering Provider: YIFAN APONTE Referring Provider: YIFAN APONTE Performed By: Fabiola Sahni Physician: Carlos Alberto Ott MD Reason For Study: Anomaly of heart of fetus affecting ,antepartum, singl Data: Number of fetuses: This is a law gestation. Duedate: 10/02/2023. Gestational age: 28w4d. Delivery at: Undecided. Specific Indication: echocardiogram performed for suspected coarctation of the aorta. CONCLUSIONS Likely coarcation of the aorta with narrowing of the distal transverseaortic arch and aortic isthmus (difficult to measure on today's study). Themitral valve is mildly hypoplastic with a z-score of -3.4 (measures about 0.51cm). The aortic valve annulus is normal in size (z-score of -1.26). The left ventricle is apex forming with normal systolic function. Mildly dilatedright ventricle with normal systolic function. No pericardial effusion. The abnormal results of the echocardiogram were explained to the patient. A follow-up echocardiogram is recommended at 32-33 weeks gestation. Prostaglandin therapy should be commenced if there are signsof coarctation, such as poor perfusion, decreased femoral pulses or asignificant upper to lower limb blood. pressure gradient. Delivery is recommended [facility]. Cardiology consultation and echocardiogram isrecommended immediately after delivery. Technical Information: A complete two dimensional, spectral and color Doppler fetalechocardiogram is performed. The study quality is reasonable. position and segmental anatomy: The fetus in breech position. The heart is in left chest. The cardiacapex points towards the left. There is normal atrial arrangement, withconcordant atrioventricular and ventriculoarterial connections. The abdominal aortais to the left of the spine. There is a left sided stomach. Systemic and pulmonary veins: The systemic venous return is normal. The innominate vena cava appearsnormal in caliber. At least one right and one left pulmonary veins are seenreturning to the left atrium. Atria and atrial septum: Normal right atrial size. The left atrium is normal in size. The flap ofthe foramen ovale opens in to the left atrium. There is ucgoknmivaue-um-jrxm shunting across the foramen ovale. Atrioventricular valves: The tricuspid valve is normal in appearance and motion. There is notricuspid insufficiency. The mitral valve annulus Z-score is -3.4. The mitralvalve annulus is hypoplastic. The mitral valve annulus measures 5.1 mm. There isno mitral valve insufficiency. Ventricles [...] aortic valve. The aortic valveannulus Z-score is -1.26. Great arteries: The main pulmonary artery has [...] cardiac rhythm: heart rate is regular at 133 bpm. Doppler: There is normal flow in the ductus venosus, umbilical artery andumbilical vein. echocardiography cannot rule out small atrial or ventricularseptal defects, persistent ductus arteriosus, mild coarctation of the aorta,partial anomalous pulmonary venous return, minor anatomic valve anomalies orcoronary artery anomalies. Reading Physician: Carlos Alberto Ott MD 07/14/2023 10:23 AM Yifan Aponte MD CV PEDS ECHO ORDERAB LES * ECHO COMPLETE (05/20/2023 9:52 AM LEATHER SEASONER) Anatomical Region Laterality Modality Echocardiography 05/20/2023 8:11 AM LEATHER SEASONER Narrative 05/20/2023 10:23 AM LEATHER SEASONER [id number]^NEREIDA^SURESH ? Study ID: [id number] ?[facility] ?[facility] ?[address] ?[place] [address] ? Echocardiogram Name: ROSEMARY NARAYAN Study Date: 05/20/2023 08:11 AM ? Patient Location: [facility] Gender: Female ?Patient Class: Outpatient : [...] to the left atrium. There is laminar ogojd-uw-sxsy shunting across the foramen ovale. Atrioventricular valves: [...] Procedure Note Yifan Aponte MD - 05/20/2023 [id number]^NEREIDA^SURESH Study ID:[id number] [facility] [address] [address] Echocardiogram Name: ROSEMARY NARAYAN Study Date: 05/20/2023 08:11 AM Patient Location: [facility] Gender: Female Patient Class:Outpatient : 2000 [...] in to the left atrium. There is wcpnnsbejxtd-xc-quao shunting across the foramen ovale. Atrioventricular valves: [...] Padron MD CV PEDS ECHO ORDERAB LES from Last 3 Months Care Teams Urology Teacher Relationship Specialty Start Date End Date No Ref-Primary, Physician PCP - General 05/08/23
--- OUTSIDE RECORDS SUMMARY | 2023-08-07 08:18 | XMS_ITS | Encounter Summary ---
Author Organization [place] Address [address] [facility] [place] [address] Care Team Providers Care Combatant Diver Qualified Name Role Phone No Ref-Primary, Physician Primary Care Provider Reason for Referral * Diagnostic Imaging Ultrasound (Routine) - Pending Review Specialty Diagnoses / Procedures Referred By Contac t Referred To Contact Radiology. Diagnoses abnormality affecting management of mother, single or unspecified fetus Procedures [facility] US Comprehensive Single F/U Swati Hurst MD [address] [place] [address] Referral ID Status Reason Start Date Expiration Date V isits Requested Visits Authorized [id number] Pending Review 06/01/2023 05/31/2024 1 1 Reason for Visit * Reason Comments Ultrasound RL2- CHD Encounter Details Date Type Department Care Team (Late st Contact Info) Description 06/01/2023 8:30 AM CDT Office Visit [facility] [place] [address] [facility] [address] [place] [address] Leyda Guzman MD [address] [place] [address] Swati Hurst MD [address] [place] [address] abnormality affecting management of mother, [...] Description 08/19/2023 9:30 AM CDT Office Visit [facility] Maternal Medicine [address] [address] Jair Sanchez MD [address] [place] [address] [phone] 08/19/2023 9:30 AM CDT Office Visit [facility] [employer] [address] [place] [phone] 08/19/2023 10:30 AM CDT Office Visit [facility] [address] [phone] Jair Sanchez MD [address] [place] [address] [phone] 08/19/2023 11:00 AM CDT Appointment [facility] [address] [place] [phone] Urmfmusfet 08/19/2023 11:45 AM CDT Appointment [facility] Maternal Medicine [address] [phone] Jair Sanchez MD [address] [place] [address] [phone] 08/19/2023 12:15 PM CDT Office Visit [facility] [place] [address] [place] [address] Jair Sanchez MD [address] [place] [address] [phone] 08/31/2023 2:15 PM CDT Appointment [facility] Maternal Medicine [facility] [address] [place] [phone] Jair Sanchez MD [address] 181474 08/31/2023 2:45 PM CDT Office Visit [facility] [place] [address] [place] [address] Jair Sanchez MD [address] 005204 08/31/2023 3:00 PM CDT Office Visit [facility] Maternal Medicine [facility] [address] [place] [address] Swati Hurst MD [address] [phone] documented as of this encounter Results * MFM US Comprehensive Single F/U (06/29/2023 2:58 PM CDT) Anatomical Region Laterality Modality Ultrasound 06/29/2023 2:20 PM CDT Impressions 06/29/2023 2:20 PM CDT IMPRESSION ----- 1. Estrada intrauterine at 26w 3d gestational age here for assessment of growth. 2. The previously noted cardiac anomaly was again visualized with the left side of the heart appearing smaller than the right in addition to a narrowed aortic isthmus. 3. No other anomalies commonly detected by ultrasound were evident in the limited anatomic survey as described above, anatomy limited by gestational age and lie. 4. Growth parameters and estimated weight were consistent with established dates. 5. The amniotic fluid volume appeared normal. Narrative 06/29/2023 2:20 PM CDT ?Comp Follow Up ----- Pat. Name: RA NARAYAN ? Study Date: ??06/29/2023 2:20pm Pat. NO: ??[id number] ?Referring ??: FRANCIA GILMAN Site: ??[facility] ? Garment Turner: Mumtaz Ventura RDMS : ??2000 ?Age: ?? 22 ----- INDICATION ----- Congenital Heart Defect. METHOD ----- Transabdominal ultrasound examination. View: Sufficient ----- Estrada . Number of fetuses: 1 DATING ----- ? Date ?Details ?Gest. age ?JAYE LMP ?12/15/2022 ?Cycle: irregular cycle ? 28 w + 0 d ? 09/21/2023 Prior assessment ? 02/16/2023 ? GA: 7 w + 3 d ?26 w + 3 d ? 10/02/2023 U/S ? 06/29/2023 ? based upon AC, BPD, Femur, HC ?27 w + 2 d ? 09/26/2023 Assigned dating ?Dating performed on 05/08/2023, based on the prior assessment (on 02/16/2023) ?26 w + 3 d ? 10/02/2023 GENERAL EVALUATION ----- Cardiac activity present. FHR 135 bpm. movements present. Presentation cephalic. Placenta posterior, no previa > 2 cm from internal os . Umbilical cord 3 vessel cord. Amniotic fluid Amount of AF: normal. MVP 5.6 cm. BIOMETRY ----- Main Biometry: BPD ?70.1 ?mm ? 28w 1d ?Hadlock OFD ?88.6 ?mm ? 26w 3d ?Nicolaides HC ?252.7 ?mm ?27w 3d ?Hadlock Cerebellum tr ?31.0 ? mm ?27w 0d ?Nicolaides AC ?228.7 ?mm ?27w 2d ?67% ?Hadlock Femur ?48.1 ? mm ?26w 1d ?Hadlock Weight Calculation: EFW ? 1,003 ?g ? 59% ?Hadlock EFW (lb,oz) ? 2 lb 3 ?oz EFW by ?Hadlock ([id number]) Head / Face / Neck Biometry: Cafeteria Supervisor ? 4.6 ? mm CM ?4.7 ? mm ANATOMY ----- The following structures appear abnormal: Heart / Thorax ?4-chamber view: left side of heart is smaller than the right. . 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 . 3-vessel view: small aorta. 5-buhrqs-zehiiyu view: small aorta . The following structures [...] findings on today's ultrasound with the patient. There is a known cardiac abnormality. 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 Per cardiology, this anatomy may be dependent on PGE. Plan for repeat assessment with [facility] of cardiac anatomy and growth in 4 weeks. She will likely need to delivery at [place], however, will plan to reevaluate following her next echocardiogram on 07/14/23. Return to primary provider for continued care. If you have questions regarding today's evaluation or if we can be of further service, please contact the Maternal- Medicine Center. anomalies may be present but not detected I spent a total of 15 minutes on the date of this encounter including preparing to see the patient (reviewing medical records/tests), in direct hakm-ww-bxnv contact with the patient during her visit with the majority spent counseling and discussing the plan of care and documenting the visit in the electronic medical record. Please see note for details. Procedure Note Swati Hurst MD - 07/03/2023 Comp Follow Up ----- Pat. Name: RA NARAYAN Study Date: 06/29/2023 2:20pm Pat. NO: [id number] Referring MD: FRANCIA GILMAN Site: [facility] Garment Turner: Mumtaz Ventura RDMS : 2000 Age: 22 ----- INDICATION ----- Congenital Heart Defect. METHOD ----- Transabdominal ultrasound examination. View: Sufficient ----- Estrada . Number of fetuses: 1 DATING ----- DateDetailsGest. age JAYE LMP 12/15/2022ycle: irregular cycle28 w + 0 d 09/21/2023 Prior assessment 02/16/2023 GA: 7 w +3 d26 w + 3 d 10/02/2023 U/S 06/29/2023ased upon AC, BPD, Femur, HC27 w + 2 d 09/26/2023 Assigned dating Dating performed on 05/08/2023, based onthe prior assessment (on 02/16/2023) 26 w + 3 10/02/2023 GENERAL EVALUATION ----- Cardiac activity present. FHR 135 bpm. movements present. Presentation cephalic. Placenta posterior, no previa > 2 cm from internal os . Umbilical cord 3 vessel cord. Amniotic fluid Amount of AF: normal. MVP 5.6 cm. BIOMETRY ----- Main Biometry: BPD 70.1 mm28w 1d Hadlock OFD 88.6 mm26w 3d Nicolaides HC 252.7 mm27w 3d Hadlock Cerebellum tr 31.0 mm27w 0d Nicolaides AC 228.7 mm27w 2d 67% Hadlock Femur 48.1 mm26w 1d Hadlock Weight Calculation: EFW 1,003 g59% Hadlock EFW (lb,oz) 2 lb 3 oz EFW by Hadlock ([id number]-FL) Head / Face / Neck Biometry: Cafeteria Supervisor 4.6 mm CM 4.7 mm ANATOMY ----- The following structures appear abnormal: Heart / Thorax 4-chamber view: left side of heart issmaller than the right. . LVOT view: mitral valve hypoplasia . Aortic archview: hypoplasia of aortic isthmus . 3-vessel view: small aorta.6-bdpifj-oreeeks view: small aorta . The following structures [...] findings on today's ultrasound with the patient. There is a known cardiac abnormality. [facility] at which time the echocardiogram noted mildhypoplasia of the mitral valve annulus and aortic isthmus. Per cardiology, this anatomy may be dependenton PGE. Plan for repeat assessment with [facility] of cardiac anatomy and growth in4 weeks. She will likely need to delivery at [place], however, will planto reevaluate following her next echocardiogram on 07/14/23. Return to primary provider for continued care. If you have questions regarding today's evaluation or if we can be offurther service, please contact the Maternal- Medicine Center. anomalies may be present but not detected I spent a total of 15 minutes on the date of this encounter includingpreparing to see the patient (reviewing medical records/tests), in mbgeldtcew-mj-ikju contact with the patient during her visit with the majority spent counseling and discussingthe plan of care and documenting the visit in the electronic medicalrecord. Please see note for details. IMPRESSION ----- 1. Estrada intrauterine at 26w 3d gestational age here forassessment of growth. 2. The previously noted cardiac anomaly was again visualized with the leftside of the heart appearing smaller than the right in addition to anarrowed aortic isthmus. 3. No other anomalies commonly detected by ultrasound were evident in thelimited anatomic survey as described above, anatomy limited bygestational age and lie. 4. Growth parameters and estimated weight were consistent withestablished dates. 5. The amniotic fluid volume appeared normal. Swati Hurst MD [facility] US ORDERABLE S documented in this encounter Visit Diagnoses Diagnosis abnormality affecting management of mother, single or unspecified fetus- Primary abnormality affecting management of mother, single or unspecified fetus documented in this encounter Care Teams Combatant Diver Qualified Relationship Specialty Start Date End Date No Ref-Primary, Physician PCP - General 05/08/23 documented as of this encounter
--- OUTSIDE RECORDS SUMMARY | 2023-08-07 08:18 | XMS_ITS | Encounter Summary ---
Author Organization [place] Address [address] [place] [address] Care Team Providers Care Felt Hat Inspector And Packer Name Role Phone No Ref-Primary, Physician Primary Care Provider Reason for Referral * Consultation (Routine: Next available opening) - Pending Review Specialty Diagnoses / Procedures Referred By Adonis t Referred To Contact Diagnoses related condition, antepartum Jair Sanchez MD [address] [address] Referral ID Status Reason Start Date Expiration Date V isits Requested Visits Authorized [id number] Pending Review 08/04/2023 08/03/2024 2 2 Question Answer OB Visit? Yes Is this a first time OB patient? Yes NICU Consult Yes Comments OBV and NICU consult 08/18 * Diagnostic Imaging Ultrasound (Routine) - Pending Review Specialty Diagnoses / Procedures Referred By Contac t Referred To Contact Radiology. Diagnoses related condition, antepartum Procedures M [facility]PP Single Jair Sanchez MD [address] [place] [address] Referral ID Status Reason Start Date Expiration Date V isits Requested Visits Authorized [id number] Pending Review 08/04/2023 08/03/2024 1 1 Encounter Details Date Type Department Care Team (Late st Contact Info) Description 08/04/2023 Orders Only [facility] [place] [address] [place], [place] [address] Shaunna Nolasco RN related condition, antepartum (Primary Dx) Social History Tobacco Use Types [...] Encounters Date Type Department Care Team (Late Contact Info) Description 08/19/2023 9:30 AM CDT Office Visit [facility] Maternal Medicine [facility] [address] [place], [place] [address] Jair Sanchez MD [address] [place], [place] [address]E [address] [phone] 08/19/2023 9:30 AM CDT Office Visit [facility] [employer] [address] [place] [phone] 08/19/2023 10:30 AM CDT Office Visit [facility] [place] [address] [place], [place] [phone] Jair Sanchez MD [address] [place], [place] [address] [address] [address] 08/19/2023 11:00 AM CDT Appointment [facility] [address] [place] [phone] Urmfmusfet 08/19/2023 11:45 AM CDT Appointment [facility] [place] [address] [place] [phone] Jair Sanchez MD [address] [place], [place] [address] [address] [address] 08/19/2023 12:15 PM CDT Office Visit [facility] [place] [address] [place] [address] Jair Sanchez MD [address] [address] 08/31/2023 2:15 PM CDT Appointment [facility] Maternal Medicine [facility] [address] [place] [phone] Jair Sanchez MD [address] [address] 08/31/2023 2:45 PM CDT Office Visit [facility] Maternal Medicine [facility] [address] [place] [address] Jair Sanchez MD [address] [address] 08/31/2023 3:00 PM CDT Office Visit [facility] [place] [address] [place] [address] Swati Hurst MD [address] 6[address] Scheduled Orders Name Type Priority Associated Diagnoses Orde r Schedule [facility] BP Single Imaging Routine related condition, antepartum Expected: 08/19/2023 (Approximate), Expires: 06/03/2024 Scheduled Referrals Name Type Priority Associated Diagnoses Orde r Schedule [facility] Office Visit Referral Routine: Next available opening related condition, antepartum Weekly for 2 Occurrences starting 08/04/2023 until 08/03/2024 documented as of this encounter Visit Diagnoses Diagnosis related condition, antepartum- Primary documented in this encounter Care Teams Felt Hat Inspector And Packer Relationship Specialty Start Date End Date No Ref-Primary, Physician PCP - General 05/08/23 documented as of this encounter
--- OUTSIDE RECORDS SUMMARY | 2023-08-07 08:18 | XMS_ITS | Encounter Summary ---
Author Organization [place] Address [facility] [place] [address] Care Team Providers Care Language Pathologist Name Role Phone No Ref-Primary, Physician Primary Care Provider Encounter Details Date Type Department Care Team (Latest Contact Info) Description 07/31/2023 Travel Social History Tobacco Use Types Packs/Day [...] Description 08/19/2023 9:30 AM CDT Office Visit [facility] M[facility] Medicine [facility] [place] [address] [place], [place] [address] Jair Sanchez MD [address] [phone] 08/19/2023 9:30 AM CDT Office Visit [facility] Assistant Wrestling [employer] Services [address] [place] [phone] 08/19/2023 10:30 AM CDT Office Visit [facility] [place] [address] [place], [place] [address] Jair Sanchez MD [address] [place] [address] [address] [address] 08/19/2023 11:[address] [facility] [address] [place] [phone] Urmfmusfet 08/19/2023 11:45 AM CDT Appointment [facility] Maternal Medicine [facility] [address] [place] [phone] Jair Sanchez MD [address] [facility] [address] 08/19/2023 12:15 PM CDT Office Visit [facility] Maternal Medicine [facility] [address] [place] [address] Jair Sanchez MD [address] [facility] [address] [address] 08/31/2023 2:15 PM CDT Appointment [facility] Maternal Medicine [facility] [address] [place] [phone] Jair Sanchez MD [address] [facility] [address] [address] 08/31/2023 2:45 PM CDT Office Visit [facility] Maternal Medicine [facility] [address] [place] [address] Jair Sanchez MD [address] [facility] [address] [address] 08/31/2023 3:00 PM CDT Office Visit [facility] M[facility] Medicine [facility] [place] [address] [place], [place] [phone] Swati Hurst MD [address] [address] documented as of this encounter Visit Diagnoses Not on filedocumented in this encounter Care Teams Language Pathologist Relationship Specialty Start Date End Date No Ref-Primary, Physician PCP - General 05/08/23 documented as of this encounter
--- OUTSIDE RECORDS SUMMARY | 2023-08-07 08:18 | XMS_ITS | Encounter Summary ---
Author Organization [place] Address [address] [place] [address] Care Team Providers Care Seismograph Shooter Name Role Phone No Ref-Primary, Physician Primary Care Provider Reason for Visit * Reason Comments Ultrasound L2- CHD Encounter Details Date Type Department Care Team (Late st Contact Info) Description 07/31/2023 2:45 PM CDT Office Visit [facility] Maternal Medicine Center [place] [address] [facility] [facility] [address] [place] [address] Jair Sanchez MD [address] [place] [address] complicated by congenital heart disease, [...] as of this encounter Progress Notes * Jair Sanchez MD - 07/31/2023 2:45 PM CDT Please see Imaging tab under Chart Review for details of today's US at the [facility]. Jair Sanchez MD Maternal- Medicine documented in this encounter Nursing Notes * Soumya Brandon RN - 07/31/2023 2:45 PM CDT Patient reports good movement, denies contractions, leaking of fluid, or bleeding. EDILBERTO HARPER MD, see their note in Epic. documented in this encounter Plan of Treatment Upcoming Encounters Date Type Department Care Team (Late st Contact Info) Description 08/19/2023 9:30 AM CDT Office Visit [facility] Maternal Medicine [facility] [address] [place] [address] Jair Sanchez MD [address] [place] [address] 08/19/2023 9:30 AM CDT Office Visit [facility] [employer] [address] [place] [phone] 08/19/2023 10:30 AM CDT Office Visit [facility] Maternal Medicine [facility] [address] [place] [address]144 Jair Sanchez MD [address] [place] [address] 08/19/2023 11:00 AM CDT Appointment [facility] Heart Care [address] [place] [phone] Urmfmusfet 08/19/2023 11:45 AM CDT Appointment [facility] Maternal Medicine [address] [phone] Jair Sanchez MD [address] [place] [address] 08/19/2023 12:15 PM CDT Office Visit [facility] Maternal Medicine [facility] [address] [place] [address] Jair Sanchez MD [address] [place] [phone] 08/31/2023 2:15 PM CDT Appointment [facility] Maternal Medicine [facility] [address] [place] [phone] Jair Sanchez MD [address] [place] [address] 08/31/2023 2:45 PM CDT Office Visit [facility] Maternal Medicine [facility] [address] [place] [address] Jair Sanchez MD [address] [address] 08/31/2023 3:00 PM CDT Office Visit [facility] Maternal Medicine [facility] [address] [place], [place] [address] Swati Hurst MD [address] [address] documented as of this encounter Visit Diagnoses Diagnosis complicated by congenital heart disease, single or unspecified fetus- Primary documented in this encounter Care Teams Seismograph Shooter Relationship Specialty Start Date End Date No Ref-Primary, Physician PCP - General 05/08/23 documented as of this encounter
--- OUTSIDE RECORDS SUMMARY | 2023-08-07 08:18 | XMS_ITS | Encounter Summary ---
Author Organization [facility] Address [address] [place] [address]. [place] [address] Care Team Providers Care Furniture Polisher Name Role Phone No Ref-Primary, Physician Primary Care Provider Encounter Details Date Type Department Care Team (Late st Contact Info) Description 07/14/2023 Office Visit [facility] [address] [place] [phone] Carlos Alberto Ott MD [address] [place] [address] [phone] cardiac disease affecting , single or unspecified fetus (Primary Dx) Social [...] as of this encounter Progress Notes * Carlos Alberto Ott MD - 07/14/2023 10:20 AM CDT [facility] Consult Note Patient: Rosemary Osborne Date of : 2000 Age: [age] year old Date of Visit: 07/14/2023 PCP: No Ref-Primary, Physician Dear Doctor, I had the pleasure of seeing Rosemary Osborne at the [facility] on 07/14/2023 infetal cardiology consultation for echocardiogram results. She presented today accompanied by her partner. As you know, she is a 22 year old at 28w4d who presented for echocardiogram today because of follow up for coarctation of the aorta. I performed and interpreted the echocardiogram today, which demonstrated likely coarcation ofthe aorta with narrowing of the distal transverse aortic arch and aortic isthmus (difficult to measure on today's study). 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 The aortic valve annulus is normal in size (z-score of -1.26). The left ventricle is apexforming with normal systolic function. Mildly dilated right ventricle with normal systolic function. No pericardial effusion. With the help of diagrams, I reviewed the echo findings today with Rosemary Osborne and her partner. communications administrator was denied by patient. I discussed the cardiac anatomy, function,physiology, and plans for intervention following delivery. Based on today's echocardiogram, this will likely be a 2-ventricular repair with an arch repair. The left ventricle appears apex forming andmildly small due to the dilatation of the right ventricle in setting of a coarctation of the aorta.I recommended delivery at [facility], with plans for post- echocardiogram to determine the needsof PGE. I reviewed the importance of a post-marianela transthoracic echocardiogram to confirm these find ings and help direct management. She had appropriate questions which I addressed. Plan: 1. Follow up Echo in 32-33 weeks. 2. This anatomy maybe dependent on the ductus arteriosus, and PGE maybe needed following delivery. 3. Transthoracic echocardiogram to be obtained after delivery immediately on arrival in the NICU. Thank you for allowing me to participate in Rosemary's care. Please do not hesitate to contact me withquestions or concerns. This visit was separate from the performance and interpretation of the ultrasound. The majority of the time (>50%) was spent in counseling and coordination of care. I spent approximately 50 minutes in tvaz-sb-eyzk time reviewing the above considerations. Carlos Alberto Ott M.D. Pediatric Cardiology [facility] Children'[address], 5th floor, [place] [phone] documented in this encounter Plan of Treatment Upcoming Encounters Date Type Department Care Team (Late st Contact Info) Description 08/19/2023 9:30 AM CDT Office Visit [facility] [address] [facility] [address] [place] [address] Jair Sanchez MD [address] [place] [phone] 08/19/2023 9:30 AM CDT Office Visit [facility] [employer] [address] [place] [phone] 08/19/2023 10:30 AM CDT Office Visit [facility] [address] [place] [phone] Jair Sanchez MD [address] [place] [address] 08/19/2023 11:[address] [facility] Care [address] [place] [phone] Urmfmusfet 08/19/2023 11:45 AM CDT Appointment [facility] [address] [facility] [place] [phone] Jair Sanchez MD [address] [place] [address] 08/19/2023 12:15 PM CDT Office Visit [facility] [address] [facility] [address] [address] [place] [address] Jair Sanchez MD [address] [place] [address] 08/31/2023 2:15 PM CDT Appointment [facility] [address] [place] [phone] Jair Sanchez MD [address] [facility] [address] [place], [place] [address] 08/31/2023 2:45 PM CDT Office Visit [facility] [address] [place], [place] [address] Jair Sanchez MD [address] [phone] 08/31/2023 3:00 PM CDT Office Visit [facility] [address] [place], [place] [phone] Swati Hurst MD [address] [phone] documented as of this encounter Visit Diagnoses Diagnosis cardiac disease affecting , single or unspecified fetus- Primary documented in this encounter Care Teams Furniture Polisher Relationship Specialty Start Date End Date No Ref-Primary, Physician PCP - General 05/08/23 documented as of this encounter
--- OUTSIDE RECORDS SUMMARY | 2023-08-07 08:18 | XMS_ITS | Encounter Summary ---
Author Organization [facility] Address [facility] [place] [address] Care Team Providers Care Eyelet Punch Operator Name Role Phone No Ref-Primary, Physician Primary Care Provider Reason for Referral * Diagnostic Imaging Ultrasound (Routine) - Pending Review Specialty Diagnoses / Procedures [facility] Contact Rad[facility]. Diagnoses Maternal care for other (suspected) abnormality and damage, cardiac anomalies, fetus 1 Procedures [facility] Comprehensive Single F/U Leyda Guzman MD [address] [facility] [address] [place] [id number] Referral ID Status Reason Start Date Expiration Date V isits Requested Visits Authorized [id number] Pending Review 05/08/2023 05/07/2024 1 1 Reason for Visit * Diagnostic Imaging Ultrasound (Routine) - Pending Review Specialty Diagnoses / Procedures Referred By [facility] t Referred To Contact Radiology. Diagnoses Maternal care for other (suspected) abnormality and damage, cardiac anomalies, fetus 1 Procedures [facility] Comprehensive Single F/U Leyda Guzman MD [address] [place] [address] [place] [address] Referral ID Status Reason Start Date Expiration Date V isits Requested Visits Authorized [id number] Pending Review 05/08/2023 05/07/2024 1 1 Encounter Details Date Type Department Care Team (Latest Contact Info) Description 06/01/2023 7:52 AM CDT - 06/01/2023 11:59 PM CDT Hospital Encounter [facility] [place] [address] [place] [address] Leyda Guzman MD [address] [facility] [address] [place], [place] [phone] Swtai Hurst MD [address] [facility] [address] [place], [place] [phone] complicated by congenital heart disease, single or [...] Description 08/19/2023 9:30 AM CDT Office Visit [facility] [place] [address] [place], [place] [phone] Jair Sanchez MD [address] [address] 08/19/2023 9:30 AM CDT Office [facility] [employer]ence [employer] [address] [place] [phone] 08/19/2023 10:30 AM CDT Office Visit [facility] [place] [address] [place] [address] Jair Sanchez MD [address] [place] [address] [address] 08/19/2023 11:00 AM CDT [facility] [address] [place] [place] [phone] Urmfmusfet 08/19/2023 11:[address] [facility] [place] [address] [place] [phone] Jair Sanchez MD [address] [facility] [address] [address]67[address] 08/19/2023 12:15 PM CDT Office Visit [facility] [place] [address] [place], [place] [phone] Jair Sanchez MD [address] 677724 08/31/2023 2:[address] [facility] [place] [address] [place] [phone] Jair Sanchez MD [address] 824[address] 08/31/2023 2:45 PM CDT Office Visit [facility] [place] [address] [place], [place] [address] Jair Sanchez MD [address] [address]35[address] 08/31/2023 3:00 PM CDT Office Visit [facility] [place] [address] [place], [place] [phone] Swati Hurst MD [address] [phone] documented as of this encounter Procedures Procedure Name Priority Date/Time Associated Diagnosis Comments MFM US COMPREHENSIVE SINGLE F/U Routine 06/01/2023 8:34 AM CDT complicated by congenital heart disease, single or unspecified fetus documented in this encounter Results * M US Comprehensive Single F/U (06/01/2023 8:34 AM [...] ? Study Date: ??06/01/2023 7:57am Pat. NO: ??[id number] ?Referring ??: FRANCIA GILMAN Site: ??[facility] ? Through Operator: Mumtaz Ventura RDMS : ??2000 ?Age: [...] 1 lb 1 ?oz EFW by ?Hadlock ([id number]) Head / Face / Neck Biometry: Steam Trap Worker ? 5.4 ? mm CM ?5.2 ? mm ANATOMY ----- The following structures appear abnormal: Heart / Thorax ?4-chamber view: Left side of the heart is small . LVOT view. 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 3-vessel view: small aorta. ? 0-aiceah-ahpromh view: small aorta . The following structures [...] delay today. Plan for repeat assessment with [facility] of cardiac anatomy and growth in [...] the patient (reviewing medical records/tests), in direct jrol-yg-cycg contact with the patient during her visit with the majority spent counseling and discussing the plan of care and documenting the visit in the electronic medical record. Please see note for details. Procedure Note Swati Hurst MD - 06/01/2023 Comp Follow Up ----- Pat. Name: GRZEGORZ FERREIRAJARA Arias Study Date: 06/01/2023 7:57am Pat. NO: [id number] Referring MD: FRANCIA GILMAN Site: [facility] Through Operator: Mumtaz Ventura RDMS : 2000 Age: [...] 1 lb 1 oz EFW by Hadlock ([id number]) Head / Face / Neck Biometry: Steam Trap Worker 5.4 mm CM 5.2 mm ANATOMY ----- The following structures appear abnormal: Heart / Thorax 4-chamber view: Left side of the heartis small . LVOT view. 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 8-ojcccy-itedoot view: smallaorta . The following structures appear [...] see the patient (reviewing medical records/tests), in kmefrdettb-qm-altc contact with the patient during her visit [...] fluid volume appeared normal. Leyda Guzman MD G [facility] US ORDERABLE S documented in this encounter Visit Diagnoses Diagnosis complicated by congenital heart disease, single or unspecified fetus documented in this encounter Care Teams Eyelet Punch Operator Relationship Specialty Start Date End Date No Ref-Primary, Physician PCP - General 05/08/23 documented as of this encounter
--- OUTSIDE RECORDS SUMMARY | 2023-08-07 08:18 | XMS_ITS | Encounter Summary ---
Author Organization [facility] Address [facility] [place] [address] Care Team Providers Care Towboat Engineer Name Role Phone No Ref-Primary, Physician Primary Care Provider Encounter Details Date Type Department Care Team (Latest Contact Info) Description 07/14/2023 Travel Social History Tobacco Use Types Packs/Day [...] Description 08/19/2023 9:30 AM CDT Office Visit [facility] [place] [address] [place], [place] [phone] Jair Sanchez MD [address] [phone] 08/19/2023 9:30 AM CDT Office Visit [facility] Printing Press Machine Operator Services [address] [place] [phone] 08/19/2023 10:30 AM CDT Office Visit [facility] [address] [place], [place] [phone] Jair Sanchez MD [address] [place] [address] [address] 08/19/2023 11:00 AM CDT Appointment [facility] Care [address] [place] [phone] Urmfmusfet 08/19/2023 11:45 AM CDT Appointment [facility] Maternal Medicine [facility] [address] [place] [phone] Jair Sanchez MD [address] [facility] [address] [address] 08/19/2023 12:15 PM CDT Office Visit [facility] Maternal Medicine [facility] [address] [place] [address] Jair Sanchez MD [address] [facility] [address] 646224 08/31/2023 2:15 PM CDT Appointment [facility] Maternal Medicine [facility] [address] [place] [phone] Jair Sanchez MD [address] [facility] [address] [address] 08/31/2023 2:45 PM CDT Office Visit [facility] Maternal Medicine [facility] [address] [place] [address] Jair Sanchez MD [address] [facility] [address] [address] 08/31/2023 3:00 PM CDT Office Visit [facility] [address] [place], [place] [address] Swati Hurst MD [address] 930594 documented as of this encounter Visit Diagnoses Not on filedocumented in this encounter Care Teams Towboat Engineer Relationship Specialty Start Date End Date No Ref-Primary, Physician PCP - General 05/08/23 documented as of this encounter
--- OUTSIDE RECORDS SUMMARY | 2023-08-07 08:18 | XMS_ITS | Referral Summary ---
Author Organization [place] Address [address] [facility] [place] [address] Care Team Providers Care Yeast Cake Cutter Name Role Phone No Ref-Primary, Physician Primary Care Provider Encounters Date Type Department Care Team Description 08/04/2023 Orders Only [facility] Maternal Medicine [facility] [address] [place], [place] [phone] Louise Haley GC Abnormal ultrasound (Primary Dx) 08/04/2023 Telephone [facility] Maternal Medicine [facility] [address] [place] [address] Shaunna Nolasco RN Appointment 08/04/2023 Orders Only [facility] Maternal Medicine [facility] [address] [place] [address] Shaunna Nolasco RN related condition, antepartum (Primary Dx) 08/03/2023 Telephone [facility] Maternal Medicine [facility] [address] [place] [address] Shaunna Nolasco RN Appointment 08/03/2023 Orders Only [facility] Maternal Medicine [facility] [address] [place] [address] Shaunna Nolasco RN related condition, antepartum (Primary Dx) 07/31/2023 Travel 07/31/2023 2:45 PM CDT Office Visit [facility] Maternal Medicine [facility] [address] [address] [place] [address] Jair Sanchez MD complicated by congenital heart disease, single or unspecified fetus (Primary Dx) 07/31/2023 2:08 PM CDT - 07/31/2023 11:59 PM CDT Hospital Encounter [facility] [place] [address] [place] [address] Jair Sanchez MD Congenital heart defect Discharge Disposition: Home or Self Care 07/14/2023 Office Visit [facility] [address] [place] [phone] Carlos Alberto Ott MD cardiac disease affecting , single or unspecified fetus (Primary Dx) 07/14/2023 Travel 07/14/2023 7:45 AM CDT - 07/14/2023 11:59 PM CDT Hospital Encounter [facility] [address] [place] [phone] Yifan Aponte MD Anomaly of heart of fetus affecting , antepartum, single or unspecified fetus Discharge Disposition: Home or Self Care 07/07/2023 Orders Only [facility] [address] [place] [address] [facility] [address] [place] [phone] Yifan Aponte MD Anomaly of heart of fetus affecting , antepartum, single or unspecified fetus (Primary Dx) 06/29/2023 Travel 06/29/2023 2:45 PM CDT Office Visit [facility] [place] [address] [place] [address] Swati Hurst MD Congenital heart defect (Primary Dx) 06/29/2023 2:15 PM CDT - 06/29/2023 11:59 PM CDT Hospital Encounter [facility] [place] [address] [place] [phone] Swati Hurst MD abnormality affecting management of mother, single or unspecified fetus Discharge Disposition: Home or Self Care 06/01/2023 Telephone [facility] Maternal Medicine [facility] [address] [place] [address] Kody Davey GC 06/01/2023 Travel 06/01/2023 8:30 AM CDT Office Visit [facility] Medicine [facility] [address] [place] [phone] Suresh Padron MD Burn, Martina, MD abnormality affecting management of mother, single or unspecified fetus (Primary Dx) 06/01/2023 7:52 AM CDT - 06/01/2023 11:59 PM CDT Hospital Encounter [facility] [address] [facility] [address] [place] [phone] Suresh Padron MD Burn, Martina, MD complicated by congenital heart disease, single or unspecified fetus Discharge Disposition: Home or Self Care 05/21/2023 MyC Medical Advice [facility] [address] [place] [phone] Kym Little RN 05/20/2023 Office Visit [facility] [address] [place] [phone] Yifan Aponte MD Anomaly of heart of fetus affecting , antepartum, single or unspecified fetus (Primary Dx) 05/20/2023 Travel 05/20/2023 7:55 AM MAGNETIC PROSPECTING SUPERVISOR - 05/20/2023 11:59 PM MAGNETIC PROSPECTING SUPERVISOR Hospital [facility] [address] [place] [phone] Suresh Padron MD complicated by congenital heart disease, single or unspecified fetus Discharge Disposition: Home or Self Care 05/12/2023 Documentation Only [facility] Maternal Medicine [facility] [address] [place] [address] Kody Davey GC from Last 3 Months Active Problems Patient Care Coordination No te Formatting of this note is d ifferent from the original. [facility] Care Plan: For details of imaging, genetic testing and consultations, please see the maternal medical record: Rosemary An MR#:[id number] Delivery hospital: [facility] DIAGNOSIS: DIAGNOSIS / DIAGNOSES: 1) CHD-coarcation of the aorta GENETIC (and other) TESTING: MaterniT Genome neg PERTINENT MATERNAL CONDITIONS: 1) + Chlamydia 02/16/23 CARE PLAN: 1) Ultrasounds - q 4 08/30 2) Other Imaging - echo 05/19, 07/13, 08/18 3) surveillance - weekly BPP at 32 weeks 4) Relocation - 5) care with - [place] 6) Labs - (look in media tab [...] CV Surg? DELIVERY PLAN: 1) Hospital - [facility] 2) Gestational age - term 3) Route - 4) Notifications in labor - 5) Genetics/specimen collection for baby: Needs consent for cordblood testing ([id number]) BABY PLAN: 1) Baby to go to [...] Provider: DEMOGRAPHICS: Patient contact info: [address] [facility] [address] Partner's name: Baby's name: Estimated Date of Delivery Comme nts Yes 10/02/2023 Based on Ultraso und No additional problems on file Immunizations Name Administration Dates Next Due TDAP [...] Description 08/19/2023 9:30 AM CDT Office Visit [facility] Maternal Medicine [address] [phone] Jair Sanchez MD [address] [place] [phone] 08/19/2023 9:30 AM CDT Office Visit [facility] Office Assistant Services [address] [place] [phone] 08/19/2023 10:30 AM CDT Office Visit [facility]aternal Medicine [address] [phone] Jair Sanchez MD [address] [place] [phone] 08/19/2023 11:00 AM CDT Appointment [facility] [address] [place] [phone] Urmfmusfet 08/19/2023 11:45 AM CDT Appointment [facility] M[facility] Medicine [address] [phone] Jair Sanchez MD [address] [place] [phone] 08/19/2023 12:15 PM CDT Office Visit [facility] [place] [address] [place], [place] [address] Jair Sanchez MD [address] [place], [place] [phone] 08/31/2023 2:15 PM CDT Appointment [facility] [place] [address] [place] [phone] Jair Sanchez MD [address] [place] [address] [place] [phone] 08/31/2023 2:45 PM CDT Office Visit [facility] Maternal Medicine [facility] [address] [place], [place] [address] Jair Sanchez MD [address] [place] [address] [place] [phone] 08/31/2023 3:00 PM CDT Office Visit [facility] Maternal Medicine [facility] [address] [place], [place] [address] Swati Hurst MD [address] [place] [address] [place] [address] [phone] Procedures Procedure Name Priority Date/Time Associated Diagnosis Comments [facility] COMPREHENSIVE SINGLE F/U Routine 07/31/2023 2:45 PM CDT Congenital heart defect ECHO COMPLETE Routine 07/14/2023 1 0:10 AM CDT Anomaly of heart of fetus affecting , antepartum, single or unspecified fetus [facility] COMPREHENSIVE SINGLE F/U Routine 06/29/2023 2:58 PM CDT abnormality affecting management of mother, single or unspecified fetus [facility] US COMPREHENSIVE SINGLE F/U Routine 06/01/2023 8:34 AM CDT complicated by congenital heart disease, single or unspecified fetus ECHO COMPLETE Routine 05/20/2023 9 :52 AM MAGNETIC PROSPECTING SUPERVISOR complicated by congenital heart disease, single or unspecified fetus from Last 3 Months Results * [facility] US Comprehensive Single F/U (07/31/2023 2:45 [...] ? Study Date: ??07/31/2023 2:19pm Pat. NO: ??[id number] ?Referring ??MD: FRANCIA GILMAN Site: ??[facility] ? Marker Machine: Justyna Calixto RDMS : ??2000 ?Age: ?? [...] lb 11 ? oz EFW by ?Hadlock ([id number]) Head / Face / Neck Biometry: Content Specialist ? 4.0 ? mm CM ?5.2 ? mm ANATOMY ----- The following structures appear abnormal: Heart / Thorax ?4-chamber view: See Echo report by [facility] from 05/20/2023. LVOT view. 3-vessel view. 8-suffno-evlnfgj view. The following structures appear normal: Head [...] NARAYAN Study Date: 07/31/2023 2:19pm Pat. NO: [id number] Referring MD: FRANCIA GILMAN Site: [facility] Marker Machine: Justyna Calixto RDMS : 2000 Age: 22 [...] 3 lb 11 oz EFW by Hadlock ([id number]-FL) Head / Face / Neck Biometry: Content Specialist 4.0 mm CM 5.2 mm ANATOMY ----- The following structures appear abnormal: Heart / Thorax 4-chamber view: See Echo reportby [facility] from 05/20/2023. LVOT view. 3-vessel view.3-ooyxqc-atftgho view. The following structures appear normal: Head [...] plan to reassess growth at [facility] in 4weeks. Return to primary provider for [...] The amniotic fluid volume appeared normal. Swati [facility] MFM ORDERABLE S * ECHO COMPLETE (07/14/2023 10:10 AM CDT) Anatomical Region Laterality Modality Echocardiography 07/14/2023 8:18 AM CDT Narrative 07/14/2023 10:23 AM CDT [id number]^APONTE^YIFAN ? Study ID: [id number] ?[facility] ?[facility] ?[address] [place] ?[place] [address] ? Echocardiogram Name: GRZEGORZ ROSEMARY AN Study Date: 07/14/2023 08:18 AM ? Patient Location: [facility] Gender: Female ?Patient Class: Outpatient : 2000 [...] blood. pressure gradient. Delivery is recommended at [facility]. Cardiology consultation and echocardiogram is recommended [...] to the left atrium. There is laminar vmyot-dr-sunf shunting across the foramen ovale. Atrioventricular valves: [...] Note Carlos Alberto Ott MD - 07/14/2023 [id number]^ASTON^YIFAN Study ID:[id number] [facility]'[address] [address] Echocardiogram Name: ROSEMARY NARAYAN Study Date: 07/14/2023 08:18 AM Patient Location: [facility] Gender: Female Patient Class:Outpatient : 2000 Age: [...] limb blood. pressure gradient. Delivery is recommended [facility]. Cardiology consultation and echocardiogram isrecommended immediately after [...] in to the left atrium. There is qgkmfyclsoda-cj-uoqh shunting across the foramen ovale. Atrioventricular valves: [...] LES * ECHO COMPLETE (05/20/2023 9:52 AM MAGNETIC PROSPECTING SUPERVISOR) Anatomical Region Laterality Modality Echocardiography 05/20/2023 8:11 AM MAGNETIC PROSPECTING SUPERVISOR Narrative 05/20/2023 10:23 AM MAGNETIC PROSPECTING SUPERVISOR [id number]^NEREIDA^SURESH ? Study ID: [id number] ?[facility] ?[facility] ?[address] ?[place] [address] ? Echocardiogram Name: ROSEMARY NARAYAN Study Date: 05/20/2023 08:11 AM ? Patient Location: [facility] Gender: Female ?Patient Class: Outpatient : 2000 ? Age: 22 yrs Ordering Provider: SURESH PADRON Referring Provider: SURESH PADRON Performed By: Mauricio Smith RDCS Reading Physician: Yifan Aponte MD Reason For Study: complicated by congenital heart disease, single Data: Number of fetuses: This is a alw gestation. Due date: 10/01/2023. Gestational age: 20w5d. [...] to the left atrium. There is laminar hbwyo-ov-ehiu shunting across the foramen ovale. Atrioventricular valves: [...] Procedure Note Yifan Aponte MD - 05/20/2023 [id number]^NEREIDA^SURESH Study ID:[id number] [facility] [address] [facility] [place] [address] Echocardiogram Name: ROSEMARY NARAYAN Study Date: 05/20/2023 08:11 AM Patient Location: [facility] Gender: Female Patient Class:Outpatient : 2000 Age: [...] in to the left atrium. There is swaivbkcptnt-ve-oqex shunting across the foramen ovale. Atrioventricular valves: [...] LES from Last 3 Months Care Teams Yeast Cake Cutter Relationship Specialty Start Date End Date No Ref-Primary, Physician PCP - General 05/08/23
--- OUTSIDE RECORDS SUMMARY | 2023-08-07 08:18 | XMS_ITS | Encounter Summary ---
Author Organization [place] Address [address] [facility] [place] [address] Care Team Providers Care Medical Planner Name Role Phone No Ref-Primary, Physician Primary Care Provider Reason for Referral * Diagnostic Imaging Ultrasound (Routine) - Pending Review Specialty Diagnoses / Procedures [facility] To Contact Rad[facility]. Diagnoses abnormality affecting management of mother, single or unspecified fetus Procedures [facility] US Comprehensive Single F/U Swati Hurst MD [address] [place] [address] Referral ID Status Reason Start Date Expiration Date V isits Requested Visits Authorized [id number] Pending Review 06/01/2023 05/31/2024 1 1 Reason for Visit * Diagnostic Imaging Ultrasound (Routine) - Pending Review Specialty Diagnoses / Procedures Referred By [facility] Referred To Contact Radiology. Diagnoses abnormality affecting management of mother, single or unspecified fetus Procedures [facility] US Comprehensive Single F/U Swati Hurst MD [address] [facility] [address] [place] [address] Referral ID Status Reason Start Date Expiration Date V isits Requested Visits Authorized [id number] Pending Review 06/01/2023 05/31/2024 1 1 Encounter Details Date Type Department Care Team (Latest Contact Info) Description 06/29/2023 2:15 PM CDT - 06/29/2023 11:59 PM CDT Hospital Encounter [facility] M[facility] Medicine [facility] [place] [address] [place] [phone] Swati Hurst MD [address] [place] [phone] abnormality affecting management of mother, single or [...] Description 08/19/2023 9:30 AM CDT Office Visit [facility] Maternal Medicine [address] [address] Jair Sanchez MD [address] [place] [address] 08/19/2023 9:30 AM CDT Office Visit [facility] Gis Instructor Services [address] [place] [phone] 08/19/2023 10:30 AM CDT Office Visit [facility] Maternal Medicine [address] [address] Jair Sanchez MD [address] [place] [phone] 08/19/2023 11:00 AM CDT Appointment [facility] [address] [place] [phone] Urmfmusfet 08/19/2023 11:45 AM CDT Appointment [facility] Maternal Medicine [address] [phone] Jair Sanchez MD [address] [phone] 08/19/2023 12:15 PM CDT Office Visit [facility] [place] [address] [place] [address] Jair Sanchez MD [address] [address] 08/31/2023 2:15 PM CDT Appointment [facility] Maternal Medicine [facility] [address] [place] [phone] Jair Sanchez MD [address] [facility] [address] [address] 08/31/2023 2:45 PM CDT Office Visit [facility] [place] [address] [place] [address] Jair Sanchez MD [address] [address] 08/31/2023 3:00 PM CDT Office Visit [facility] [place] [address] [place] [address] Swati Hurst MD [address] [address] documented as of this encounter Procedures Procedure Name Priority Date/Time Associated Diagnosis Comments [facility] US COMPREHENSIVE SINGLE F/U Routine 06/29/2023 2:58 PM CDT abnormality affecting management of mother, single or unspecified fetus documented in this encounter Results * [facility] US Comprehensive Single F/U (06/29/2023 2:58 [...] ? Study Date: ??06/29/2023 2:20pm Pat. NO: ??[id number] ?Referring ??: FRANCIA GILMAN Site: ??[facility] ? Sports Doctor: Mumtaz Ventura RDMS : ??2000 ?Age: ?? [...] 2 lb 3 ?oz EFW by ?Hadlock ([id number]-TG-GO-FL) Head / Face / Neck Biometry: Admission Nurse ? 4.6 ? mm CM ?4.7 ? mm ANATOMY ----- The following structures appear abnormal: Heart / Thorax ?4-chamber view: left side of heart is smaller than the right. . 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 . 3-vessel view: small aorta. 1-tcbvgt-vbxhuog view: small aorta . The following structures [...] on PGE. Plan for repeat assessment with M of cardiac anatomy and growth in 4 weeks. She will likely need to delivery at [facility], however, will plan to reevaluate following her [...] the patient (reviewing medical records/tests), in direct oxrq-cb-ehwi contact with the patient during her visit with the majority spent counseling and discussing the plan of care and documenting the visit in the electronic medical record. Please see note for details. Procedure Note Swati Hurst MD - 07/03/2023 Comp Follow Up ----- Pat. Name: RA NARAYAN Study Date: 06/29/2023 2:20pm Pat. NO: [id number] Referring MD: FRANCIA GILMAN Site: [facility] Sports Doctor: Mumtaz Ventura RDMS : 2000 Age: 22 [...] 2 lb 3 oz EFW by Hadlock ([id number]-[id number]-FL) Head / Face / Neck Biometry: Admission Nurse 4.6 mm CM 4.7 mm ANATOMY ----- The following structures appear abnormal: Heart / Thorax 4-chamber view: left side of heart issmaller than the right. . LVOT view: mitral valve hypoplasia . Aortic archview: hypoplasia of aortic isthmus . 3-vessel view: small aorta.7-yuqpxx-zoqluud view: small aorta . The following structures [...] known cardiac abnormality. 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 Per cardiology, this anatomy may be dependenton PGE. Plan for repeat assessment with [facility] of cardiac anatomy and growth in4 weeks. She will likely need to delivery at [facility], however, will planto reevaluate following her next [...] see the patient (reviewing medical records/tests), in jzdmaasogo-dg-vibm contact with the patient during her visit [...] fluid volume appeared normal. Swati Hurst MD [facility] US ORDERABLE S documented in this encounter Visit Diagnoses Diagnosis abnormality affecting management of mother, single or unspecified fetus documented in this encounter Care Teams Medical Planner Relationship Specialty Start Date End Date No Ref-Primary, Physician PCP - General 05/08/23 documented as of this encounter
--- OUTSIDE RECORDS SUMMARY | 2023-08-07 08:18 | XMS_ITS | Encounter Summary ---
Author Organization [place] Address [address] [place] [address] Care Team Providers Care Freezer Worker Name Role Phone No Ref-Primary, Physician Primary Care Provider Reason for Referral * (Routine) - Closed Specialty Diagnoses / Procedures Referred By Contac t Referred To Contact Cardiology Diagnoses Anomaly of heart of fetus affecting , antepartum, single or unspecified fetus Procedures Echo (TTE) Complete Yifan Clancy MD [address] [place] [address] [facility] [address] [place] [phone] Referral ID Status Reason Start Date Expiration Date Visits Re quested Visits Authorized [id number] Closed 07/14/2023 07/06/2024 1 1 Reason for Visit * (Routine) - Closed Specialty Diagnoses / Procedures Referred By Contac t Referred To Contact Cardiology Diagnoses Anomaly of heart of fetus affecting , antepartum, single or unspecified fetus Procedures Echo (TTE) Yifan Gamez MD [address] [place] [address] [facility] [address] [place] [phone] Referral ID Status Reason Start Date Expiration Date Visits Re quested Visits Authorized [id number] Closed 07/14/2023 07/06/2024 1 1 Encounter Details Date Type Department Care Team (Latest Contact Info) Description 07/14/2023 7:45 AM CDT - 07/14/2023 11:59 PM CDT Hospital Encounter [facility] Heart Care [address] [place] [address] [phone] Yifan Clancy MD [address] [place] [address] Anomaly of heart of fetus affecting , [...] Description 08/19/2023 9:30 AM CDT Office Visit [facility] Maternal Medicine Center [address] [address] Jair Sanchez MD [address] [place] [address] [phone] 08/19/2023 9:30 AM CDT Office Visit [facility] Hardware Design Engineer Services [address] [place] [address] [phone] 08/19/2023 10:30 AM CDT Office Visit [facility] Center [address] [address] Jair Sanchez MD [address] [place] [address] [phone] 08/19/2023 11:00 AM CDT Appointment [facility] Heart Care [address] [place] [address] [phone] Urmfmusfet 08/19/2023 11:45 AM CDT Appointment [facility] M[facility] Medicine [facility] [place] [address] [place] [phone] Jair Sanchez MD [address] 890394 08/19/2023 12:15 PM CDT Office Visit [facility] M[facility] Medicine [facility] [place] [address] [place], [place] [address] Jair Sanchez MD [address] [address] 08/31/2023 2:15 PM CDT Appointment [facility] [place] [address] [place] [phone] Jair Sanchez MD [address] 533894 08/31/2023 2:45 PM CDT Office Visit [facility] [place] [address] [place], [place] [address] Jair Sanchez MD [address] 707[address] 08/31/2023 3:00 PM CDT Office Visit [facility] M[facility] Medicine [facility] [place] [address] [place], [place] [phone] Swati Hurst MD [address] [phone] documented as of this encounter Procedures Procedure Name Priority Date/Time Associated Diagnosis Comments ECHO COMPLETE Routine 07/14/2023 1 0:10 AM CDT Anomaly of heart of fetus affecting , antepartum, single or unspecified fetus documented in this encounter Results * ECHO COMPLETE (07/14/2023 10:10 AM CDT) Anatomical Region Laterality Modality Echocardiography 07/14/2023 8:18 AM CDT Narrative 07/14/2023 10:23 AM CDT [id number]^CLANCY^YIFAN ? Study ID: [id number] ?[facility] ?[facility] ?[address] ?[place] [address] ? Echocardiogram Name: RA NARAYAN Study Date: 07/14/2023 08:18 AM ? Patient Location: [facility] Gender: Female ?Patient Class: Outpatient : [id number] ? Age: 22 yrs Ordering Provider: YIFAN CLANCY Referring Provider: YIFAN CLANCY Performed By: Fabiola Sahni Physician: Carlos Alberto [...] blood. pressure gradient. Delivery is recommended at [facility]. Cardiology consultation and echocardiogram is recommended immediately [...] to the left atrium. There is laminar jwfhj-xw-ibif shunting across the foramen ovale. Atrioventricular valves: [...] Note Carlos Alberto Ott MD - 07/14/2023 [id number]^CLANCY^YIFAN Study ID:[id number] [facility] [address] [address] Echocardiogram Name: RA NARAYAN Study Date: 07/14/2023 08:18 AM Patient Location: [facility] Gender: Female Patient Class:Outpatient : 2000 Age: 22 yrs Ordering Provider: YIFAN CLANCY Referring Provider: YIFAN CLANCY Performed By: Fabiola Sahni Reading Physician: Carlos Alberto Ott MD Reason For [...] limb blood. pressure gradient. Delivery is recommended [facility]. Cardiology consultation and echocardiogram isrecommended immediately after [...] in to the left atrium. There is raqcxyvjwzdn-pv-hicm shunting across the foramen ovale. Atrioventricular valves: [...] Alberto Ott MD 07/14/2023 10:23 AM Yifan Clancy MD CV PEDS ECHO ORDERAB LES documented in this encounter Visit Diagnoses Diagnosis Anomaly of heart of fetus affecting , antepartum, single or unspecified fetus documented in this encounter Care Teams Freezer Worker Relationship Specialty Start Date End Date No Ref-Primary, Physician PCP - General 05/08/23 documented as of this encounter
--- OUTSIDE RECORDS SUMMARY | 2023-08-07 08:18 | XMS_ITS | Encounter Summary ---
Author Organization [place] Address [facility] [place] [address] Care Team Providers Care Panel Machine Tender Name Role Phone No Ref-Primary, Physician Primary [...] 08/19/2023 9:30 AM CDT Office Visit [facility] Maternal Medicine [facility] [place] [address] [place], [place] [phone] Jair Sanchez MD [address] 649694 08/19/2023 9:30 AM CDT Office Visit [facility] Forwarder Operator Services [address] [place] [phone] 08/19/2023 10:30 AM CDT Office Visit [facility] [place] [address] [place], [place] 837144 Jair Sanchez MD [address] [place] [address] [address] 08/19/2023 11:00 AM CDT Appointment [facility] Heart Care [address] [place] [phone] Urmfmusfet 08/19/2023 11:[address] [facility] Maternal Medicine [facility] [address] [place] [phone] Jair Sanchez MD [address] [facility] [address] [address] 08/19/2023 12:15 PM CDT Office Visit [facility] Maternal Medicine [facility] [address] [place] [address] Jair Sanchez MD [address] [facility] 615384 08/31/2023 2:[address] [facility] Maternal Medicine [facility] [address] [place] [phone] Jair Sanchez MD [address] [address] 08/31/2023 2:45 PM CDT Office Visit [facility] Maternal Medicine [facility] [address] [place] [address] Jair Sanchez MD [address] [facility] 708954 08/31/2023 3:00 PM CDT Office Visit [facility] M[facility] Medicine [facility] [place] [address] [place], [place] 452824 Swati Hurst MD [address] 816854 documented as of this encounter Visit Diagnoses Not on filedocumented in this encounter Care Teams Panel Machine Tender Relationship Specialty Start Date End Date No Ref-Primary, Physician PCP - General 05/08/23 documented as of this encounter
--- OUTSIDE RECORDS SUMMARY | 2023-08-07 08:18 | XMS_ITS | Encounter Summary ---
Author Organization [place] Address [address] [place] [address] Care Team Providers Care Health Program Director Name Role Phone No Ref-Primary, Physician Primary Care Provider Reason for Referral * Diagnostic Imaging Ultrasound (Routine) - Pending Review Specialty Diagnoses / Procedures Referred By Contac t Referred To Contact Radiology. Diagnoses Congenital heart defect Procedures [facility] US Comprehensive Single F/U Swati Hurst MD [address] [place] [address] Referral ID Status Reason Start Date Expiration Date V isits Requested Visits Authorized [id number] Pending Review 06/29/2023 06/28/2024 1 1 Reason for Visit * Reason Comments Ultrasound RL2-CHD Encounter Details Date Type Department Care Team (Late st Contact Info) Description 06/29/2023 2:45 PM CDT Office Visit [facility] Maternal Medicine Center [place] [address] [place] [address] Swati Hurst MD [address] [place] [address] Congenital heart defect (Primary Dx) [...] 06/29/2023 2:45 PM CDT Patient presents to [facility] for RL2 at 26w3d due to CHD. Positive movement. Denies LOF, vaginal bleeding or cramping/contractions. SBAR given to [facility] , see their note in Epic. documented in this encounter Plan of Treatment Upcoming Encounters Date Type Department Care Team (Late st Contact Info) Description 08/19/2023 9:30 AM CDT Office Visit [facility] Maternal Medicine Center [address] [phone] Jair Sanchez MD [address] [place] [place] [address] [phone] 08/19/2023 9:30 AM CDT Office Visit [facility] Finance Lead Services [address] [place] [address] [phone] 08/19/2023 10:30 AM CDT Office Visit [facility] M[facility] [address] [address] Jair Sanchez MD [address] [place] [place] [address] 08/19/2023 11:00 AM CDT Appointment [facility] Heart Care [address] [place] [address] [phone] Urmfmusfet 08/19/2023 11:45 AM CDT Appointment [facility] Maternal Medicine [facility] [place] [address] [place] [phone] Jair Sanchez MD [address] [place] [address] [place] [address] [phone] 08/19/2023 12:15 PM CDT Office Visit [facility] M[facility] Medicine [facility] [place] [address] [place] [address] Jair Sanchez MD [address] 715904 08/31/2023 2:15 PM CDT Appointment [facility] Maternal Medicine [facility] [address] [place] [phone] Jair Sanchez MD [address] 930374 08/31/2023 2:45 PM CDT Office Visit [facility] M[facility] Medicine [facility] [place] [address] [place], [place] 111[address]84 Jair Sanchez MD [address] [phone] 08/31/2023 3:00 PM CDT Office Visit [facility] [place] [address] [place], [place] 2836[address] Swati Hurst MD [address] 928154 documented as of this encounter Results * [facility] US Comprehensive Single F/U (07/31/2023 2:45 PM CDT) Anatomical Region Laterality Modality Ultrasound 07/31/2023 2:19 PM CDT Impressions 07/31/2023 2:59 PM CDT IMPRESSION ----- 1. Estrada at 31w 0d gestational age. 2. A [...] Pat. Name: RA NARAYAN ? Study Date: ??07/31/2023 2:19pm Pat. NO: ??[id number] ?Referring ??MD: FRANCIA GILMAN Site: ??[facility] ? Automatic Lehr Operator: Justyna Calixto RDMS : ??2000 ?Age: ?? [...] lb 11 ? oz EFW by ?Hadlock ([id number]) Head / Face / Neck Biometry: Data Security Coordinator ? 4.0 ? mm CM ?5.2 ? mm ANATOMY ----- The following structures appear abnormal: Heart / Thorax ?4-chamber view: See Echo report by [facility] from 05/20/2023. LVOT view. 3-vessel view. 9-tlyldb-wnbsyvs view. The following structures appear normal: Head [...] We will plan to reassess growth at [facility] in 4 weeks. Return to primary provider for continued care. Thank-you for the opportunity to participate in the care of this patient. If you have questions regarding today's evaluation or if we can be of further service, please contact the Maternal- Medicine Center. anomalies may be present but not detected Procedure Note Jair Sanchez MD - 07/31/2023 Comp Follow Up ----- Pat. Name: RA NARAYAN Study Date: 07/31/2023 2:19pm Pat. NO: [id number] Referring MD: FRANCIA GILMAN Site: [facility] Automatic Lehr Operator: Justyna Calixto RDMS : 2000 Age: 22 [...] 3 lb 11 oz EFW by Hadlock ([id number]) Head / Face / Neck Biometry: Data Security Coordinator 4.0 mm CM 5.2 mm ANATOMY ----- The following structures appear abnormal: Heart / Thorax 4-chamber view: See Echo reportby [facility] from 05/20/2023. LVOT view. 3-vessel view.2-txmwch-udxwafd view. The following structures appear normal: Head [...] present but not detected IMPRESSION ----- 1. Estrada at 31w 0d gestational age. 2. 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 2. None of the other anomalies commonly detected by ultrasound wereevident in the limited anatomic survey as described above. 3. Growth parameters and estimated weight were consistent with AGAgrowth. 4. The amniotic fluid volume appeared normal. Swati Hurst MD IMG [facility] US ORDERABLE S documented in this encounter Visit Diagnoses Diagnosis Congenital heart defect- Primary Unspecified congenital anomaly of heart Congenital heart defect Unspecified congenital anomaly of heart documented in this encounter Care Teams Health Program Director Relationship Specialty Start Date End Date No Ref-Primary, Physician PCP - General 05/08/23 documented as of this encounter
--- OUTSIDE RECORDS SUMMARY | 2023-08-07 08:18 | XMS_ITS | Encounter Summary ---
Author Organization [place] Address [address] [facility] [place] [address] Care Team Providers Care Power Originator Name Role Phone No Ref-Primary, Physician Primary Care Provider Reason for Referral * Diagnostic Imaging Ultrasound (Routine) - Pending Review Specialty Diagnoses / Procedures Referred By Contac t Referred To Contact Radiology. Diagnoses related condition, antepartum Procedures [facility] US Comprehensive Single F/U Jair Sanchez MD [address] [facility] [address] [place] [address] Referral ID Status Reason Start Date Expiration Date V isits Requested Visits Authorized [id number] Pending Review 08/03/2023 08/02/2024 1 1 Encounter Details Date Type Department Care Team (Late st Contact Info) Description 08/03/2023 Orders Only [facility] Maternal Medicine [facility] [place] [address] [place] [address] Shaunna Nolasco RN related condition, antepartum (Primary [...] Description 08/19/2023 9:30 AM CDT Office Visit [facility] M[facility] Medicine [facility] [place] [address] [place] [address] Jair Sanchez MD [address] [place], [place] [address]E [address] [address] 08/19/2023 9:30 AM CDT Office Visit [facility] Patent Drafter Services [address] [place] [phone] 08/19/2023 10:30 AM CDT Office Visit [facility] M[facility] Medicine [facility] [place] [address] [facility] [place] [address] Jair Sanchez MD [address] [place] [address] 08/19/2023 11:00 AM CDT Appointment [facility] Heart Care [address] [place] [address] [phone] Urmfmusfet 08/19/2023 11:45 AM CDT Appointment [facility] M[facility] Medicine [facility] [place] [address] [place] [phone] Jair Sanchez MD [address] [place] [address] 08/19/2023 12:15 PM CDT Office Visit [facility] M[facility] Medicine [facility] [place] [address] [place] [address] Jair Sanchez MD [address] [place] [address] 08/31/2023 2:15 PM CDT Appointment [facility] Medicine [facility] [place] [address] [place] [phone] Jair Sanchez MD [address] [address] [place], [place] 523694 08/31/2023 2:45 PM CDT Office Visit [facility] [place] [address] [place], [place] [address]114 Jair Sanchez MD [address] [address] [place], [place] 2159[address] 08/31/2023 3:00 PM CDT Office Visit [facility] Maternal Medicine [facility] [address] [place], [place] [phone] Swati Hurst MD [address] [phone] Scheduled Orders Name Type Priority Associated Diagnoses Orde r Schedule [facility] US Comprehensive Single F/U Imaging Routine related condition, antepartum Expected: 08/28/2023 (Approximate), Expires: 08/02/2024 documented as of this encounter Visit Diagnoses Diagnosis related condition, antepartum- Primary documented in this encounter Care Teams Power Originator Relationship Specialty Start Date End Date No Ref-Primary, Physician PCP - General 05/08/23 documented as of this encounter
--- OUTSIDE RECORDS SUMMARY | 2023-08-07 08:18 | XMS_ITS | Encounter Summary ---
Author Organization [place] Address [address] [facility] [place] [address] Care Team Providers Care Drum Plater Name Role Phone No Ref-Primary, Physician Primary Care Provider Reason for Visit * Reason Onset Date Comments Appointment 08/04/2023 Encounter Details Date Type Department Care Team (Late st Contact Info) Description 08/04/[address] [facility] Maternal Medicine Center [place] [address] [place] [address] Shaunna Nolasco, RN Appointment Social History Tobacco Use Types Packs/Day Years [...] encounter Miscellaneous Notes * Telephone Encounter - Shaunna Nolasco RN - 08/04/2023 9:12 AM CDT Phone call to [place] to discuss upcoming [facility] appointments and echo. Pt agreed to come to [place] for multiple appointments on 08/18. Plan: Pt will have weekly BPP starting at 32 weeks. These will be done in [place] unless patient is coming to [facility]. Serial growth q 4 weeks. Pt will come to [facility] on 08/18 for NICU consult, ob visit, echo, BPP. Will discuss delivery date and further planning at this visit. Shaunna Nolasco RN documented in this encounter Plan of Treatment Upcoming Encounters Date Type Department Care Team (Late st Contact Info) Description 08/19/2023 9:30 AM CDT Office Visit [facility] Maternal Medicine [facility] [address] [place] [address] Jair Sanchez MD [address] [place] [address] 08/19/2023 9:30 AM CDT Office Visit [facility] Channel Marketing Specialist Services [address] [place] [address] [phone] 08/19/2023 10:30 AM CDT Office Visit [facility] Maternal Medicine [facility] [address] [facility] [place] [address] Jair Sanchez MD [address] [place] [address] 08/19/2023 11:[address] [facility] Heart Care [address] [place] [address] [phone] Urmfmusfet 08/19/2023 11:[address] [facility] Maternal Medicine [facility] [address] [facility] [place] [phone] Jair Sanchez MD [address] [place] [address] 08/19/2023 12:15 PM CDT Office Visit [facility] Maternal Medicine [facility] [address] [facility] [place] [address] Jair Sanchez MD [address] [place] [address] 08/31/2023 2:[address] [facility] Maternal Medicine [facility] [address] [place] [address] Jair Sanchez MD [address] [address] 08/31/2023 2:45 PM CDT Office Visit [facility] Maternal Medicine [facility] [address] [place] [address] Jair Sanchez MD [address] 310[address] 08/31/2023 3:00 PM CDT Office Visit [facility] Maternal Medicine [facility] [address] [place], [place] [address] Swati Hurst MD [address] [phone] documented as of this encounter Visit Diagnoses Not on filedocumented in this encounter Care Teams Drum Plater Relationship Specialty Start Date End Date No Ref-Primary, Physician PCP - General 05/08/23 documented as of this encounter
--- OUTSIDE RECORDS SUMMARY | 2023-08-07 08:18 | XMS_ITS | Encounter Summary ---
Author Organization [place] Address [facility] [place] [address] Care Team Providers Care Check Out Clerk Name Role Phone No Ref-Primary, Physician Primary Care Provider Reason for Visit * Reason Onset Date Comments Appointment 08/03/2023 Encounter Details Date Type Department Care Team (Late st Contact Info) Description 08/03/2023 Telephone [facility] M[facility] Medicine [facility] [place] [address] [address] Shaunna Nolasco, RN Appointment Social History Tobacco [...] Telephone Encounter - Shaunna Nolasco RN - 08/03/2023 10:09 AM CDT Phone call to patient to discuss future appointments, weekly BPP, visits, and delivery at [facility]. Offered patient to move echo from 08/10 to 08/11 to coordinate a BPP and visit with MFM coordinator at [place]. Pt will call back after checking with her spouse. Shaunna Nolasco RN documented in this encounter Plan of Treatment Upcoming Encounters Date Type Department Care Team (Late st Contact Info) Description 08/19/2023 9:30 AM CDT Office Visit [facility] [place] [address] [place] [address] Jair Sanchez MD [address] [facility] [address] [address] 08/19/2023 9:30 AM CDT [facility] Post Production Assistant Services [address] [place] [phone] 08/19/2023 10:30 AM CDT Office Visit [facility] Maternal Medicine [facility] [address] [facility] [place] [address] Jair Sanchez MD [address] [place] [address] 08/19/2023 11:00 AM CDT Appointment [facility] Heart Care [address] [place] [address] [phone] Urmfmusfet 08/19/2023 11:45 AM CDT Appointment [facility] [place] [address] [place] [phone] Jair Sanchez MD [address] [place], [place] [address] [address] [address] 08/19/2023 12:15 PM CDT Office Visit [facility] [place] [address] [place] [address] Jair Sanchze MD [address] [place] [address] 08/31/2023 2:15 PM CDT Appointment [facility] [place] [address] [place] [phone] Jair Sanchez MD [address] [place], [place] [address]99[address] 08/31/2023 2:45 PM CDT Office Visit [facility] Maternal Medicine [facility] [address] [place] [address] Jair Sanchez MD [address] [address] [place], [place] 684[address] 08/31/2023 3:00 PM CDT Office Visit [facility] Maternal Medicine [facility] [address] [place], [place] [address] Swati Hurst MD [address] [phone] documented as of this encounter Visit Diagnoses Not on filedocumented in this encounter Care Teams Check Out Clerk Relationship Specialty Start Date End Date No Ref-Primary, Physician PCP - General 05/08/23 documented as of this encounter
--- OUTSIDE RECORDS SUMMARY | 2023-08-07 08:18 | XMS_ITS | Encounter Summary ---
Author Organization [place] Address [address] [facility] [place] [address] Care Team Providers Care Bander Name Role Phone No Ref-Primary, Physician Primary Care Provider Reason for Referral * Consultation (Routine: Next available opening) - Pending Review Specialty Diagnoses / Procedures Referred By Contmaile t Referred To Contact Diagnoses Abnormal ultrasound Swati Hurst MD [address] [facility] [address] [place] [address] Referral ID Status Reason Start Date Expiration Date V isits Requested Visits Authorized [id number] Pending Review 08/04/2023 08/03/2024 1 1 Encounter Details Date Type Department Care Team (Late st Contact Info) Description 08/04/2023 Orders Only [facility] Maternal Medicine Center [place] [address] [place] [phone] Louise Haley GC [address] [place] [address] [place], [place] [phone] Abnormal ultrasound (Primary Dx) Social History Tobacco Use Types [...] as of this encounter Progress Notes * Louise Haley GC - 08/04/2023 10:08 AM CDT August 04, 2023 Case reviewed with pediatric medical genetics with recommendation for cord blood microarray with limited G-bands and inpatient genetics consult. Order will be placed for genetic counseling to be added at upcoming [facility] appointment to review recommendation with patient. Louise Haley MS, [facility] Licensed Genetic Counselor [facility] Maternal Medicine [email or web address] documented in this encounter Plan of Treatment Upcoming Encounters Date Type Department Care Team (Late st Contact Info) Description 08/19/2023 9:30 AM CDT Office Visit [facility] Maternal Medicine [address] [phone] Jair Sanchez MD [address] [place] [address] 08/19/2023 9:30 AM CDT Office Visit [facility] Butter [employer] Services [address] [place] [address] [phone] 08/19/2023 10:30 AM CDT Office Visit [facility] Maternal Medicine [address] [phone] Jair Sanchez MD [address] [place], [place] [address] [address] [address] 08/19/2023 11:00 AM CDT Appointment [facility] Heart Care [address] [place] [address] [phone] Urmfmusfet 08/19/2023 11:45 AM CDT Appointment [facility] Maternal Medicine [address] [phone] Jair Sanchez MD [address] [place] [address] [place] [address] 08/19/2023 12:15 PM CDT Office Visit [facility] M[facility] Medicine [facility] [place] [address] [place] [address] Jair Sanchez MD [address] [place] [address] [place], [place] 7[address]44 08/31/2023 2:15 PM CDT Appointment [facility] Maternal Medicine [facility] [address] [place] [phone] Jair Sanchez MD [address] [place] [address] [place] [address] 08/31/2023 2:45 PM CDT Office Visit [facility] Maternal Medicine [facility] [address] [place] [address] Jair Sanchez MD [address] [place] [address] [place] [address] 527324 08/31/2023 3:00 PM CDT Office Visit [facility] Maternal Medicine [facility] [address] [place], [place] [address] Swati Hurst MD [address] [place] [address] [place], [place] 72[address] Scheduled Referrals Name Type Priority Associated Diagnoses Orde r Schedule [facility] Genetic Counseling Referral Routine: Next available opening Abnormal ultrasound Expected: 08/04/2023 (Approximate), Expires: 08/03/2024 documented as of this encounter Visit Diagnoses Diagnosis Abnormal ultrasound- Primary Abnormal findings on screening documented in this encounter Care Teams Bander Relationship Specialty Start Date End Date No Ref-Primary, Physician PCP - General 05/08/23 documented as of this encounter
--- OUTSIDE RECORDS SUMMARY | 2023-08-07 08:18 | XMS_ITS | Encounter Summary ---
Author Organization [place] Address [facility] [address] Care Team Providers Care Hotel Operation Manager Name Role Phone No Ref-Primary, Physician [...] Description 08/19/2023 9:30 AM CDT Office Visit [facility] Maternal Medicine Center [place] [address] [place], [place] [phone] Jair Sanchez MD [address] [phone] 08/19/2023 9:30 AM CDT Office Visit [facility] Roster Clerk Services [address] [place] [phone] 08/19/2023 10:30 AM CDT Office Visit [facility] [place] [address] [place], [place] [address] Jair Sanchez MD [address] [place] [address] [address] 08/19/2023 11:[address] [facility] Heart Care [address] [place] [phone] Urmfmusfet 08/19/2023 11:45 AM CDT Appointment [facility] Maternal Medicine [facility] [address] [place] [phone] Jair Sanchez MD [address] [facility] [address] [address] 08/19/2023 12:15 PM CDT Office Visit [facility] Maternal Medicine [facility] [address] [place] [address] Jair Sanchez MD [address] [facility] [address] [address] 08/31/2023 2:15 PM CDT Appointment [facility] Maternal Medicine [facility] [address] [place] [phone] Jair Sanchez MD [address] [facility] [address] [address] 08/31/2023 2:45 PM CDT Office Visit [facility] Maternal Medicine [facility] [address] [place] [address] Jair Sacnhez MD [address] [facility] [address] 460094 08/31/2023 3:00 PM CDT Office Visit [facility] M[facility] Medicine [facility] [place] [address] [place], [place] [address] Swati Hurst MD [address] [address] documented as of this encounter Visit Diagnoses Not on filedocumented in this encounter Care Teams Hotel Operation Manager Relationship Specialty Start Date End Date No Ref-Primary, Physician PCP - General 05/08/23 documented as of this encounter
--- OUTSIDE RECORDS SUMMARY | 2023-08-07 08:18 | XMS_ITS | Encounter Summary ---
Author Organization [place] Address [address] [facility] [place] [address] Care Team Providers Care Lunchroom Aide Name Role Phone No Ref-Primary, Physician Primary Care Provider Encounter Details Date Type Department Care Team (Late st Contact Info) Description 06/01/[address] [facility] Maternal Medicine Center [place] [address] [place], [place] [address] Kody Davey [address] [place] [address] [place] [address] Social History Tobacco Use Types Packs/Day Years [...] as needed moving forward Kody Davey MS, [facility] Licensed Genetic Counselor Pager: [phone] documented in this encounter Plan of Treatment Upcoming Encounters Date Type Department Care Team (Late st Contact Info) Description 08/19/2023 9:30 AM CDT Office Visit [facility] Maternal Medicine [facility] [place] [address] [place], [place] [address] [place] [address] Jair Sanchez MD [address] [place] [phone] 08/19/2023 9:30 AM CDT Office Visit [facility] Wine Manager Services [address] [place] [address] [phone] 08/19/2023 10:30 AM CDT Office Visit [facility] Maternal Medicine [facility] [address] [place] [address] [phone] Jair Sanchez MD [address] [place] [address] [phone] 08/19/2023 11:00 AM CDT Appointment [facility] [address] [place] [address] [phone] Urmfmusfet 08/19/2023 11:[address] [facility] Maternal Medicine [facility] [address] [place] [address] [phone] Jair Sanchez MD [address] [place], [place] [address] [address] [address] 08/19/2023 12:15 PM CDT Office Visit [facility] Maternal Medicine [facility] [address] [place] [address] Jair Sanchez MD [address] [place] [address] [place], [place] [address]854 08/31/2023 2:[address] [facility] Maternal Medicine [facility] [place] [address] [place] [phone] Jair Sanchez MD [address] [place] [address] [place] [address] 08/31/2023 2:45 PM CDT Office Visit [facility] Maternal Medicine [facility] [address] [address] Jair Sanchez MD [address] 964934 08/31/2023 3:00 PM CDT Office Visit [facility] Maternal Medicine [facility] [address] [place] [address] Swati Hurst MD [address] [place] [address] [place] [phone] documented as of this encounter Visit Diagnoses Not on filedocumented in this encounter Care Teams Lunchroom Aide Relationship Specialty Start Date End Date No Ref-Primary, Physician PCP - General 05/08/23 documented as of this encounter
--- OUTSIDE RECORDS SUMMARY | 2023-08-07 08:18 | XMS_ITS | Encounter Summary ---
Author Organization [place] Address [address] [facility] [place] [address] Care Team Providers Care Lead Cook Name Role Phone No Ref-Primary, Physician Primary Care Provider Reason for Referral * Diagnostic Imaging Ultrasound (Routine) - Pending Review Specialty Diagnoses / Procedures Referred By Contac t Referred To Contact Radiology. Diagnoses Congenital heart defect Procedures [facility] Comprehensive Single F/U Swati Hurst MD [address] [place], [place] [address] Referral ID Status Reason Start Date Expiration Date V isits Requested Visits Authorized [id number] Pending Review 06/29/2023 06/28/2024 1 1 Reason for Visit * Diagnostic Imaging Ultrasound (Routine) - Pending Review Specialty Diagnoses / Procedures Referred By Contac t Referred To Contact Radiology. Diagnoses Congenital heart defect Procedures [facility] Comprehensive Single F/U Swati Hurst MD [address] [place], [place] [address] [address] [address] Referral ID Status Reason Start Date Expiration Date V isits Requested Visits Authorized [id number] Pending Review 06/29/2023 06/28/2024 1 1 Encounter Details Date Type Department Care Team (Latest Contact Info) Description 07/31/2023 2:08 PM CDT - 07/31/2023 11:59 PM CDT Hospital Encounter [facility] Maternal Medicine Center [place] [address] [facility] [address] [place] [phone] Jair Sanchez MD [address] [place] [address] 400 [place], [place] [address]794 Congenital heart defect Discharge Disposition: Home or Self Care Social [...] Description 08/19/2023 9:30 AM CDT Office Visit [facility] Maternal Medicine Center [place] [address] [place] [address] Jair Sanchez MD [address] [place] [address] 08/19/2023 9:30 AM CDT Office Visit [facility] Business Team Leader Services [address] [place] [address] [phone] 08/19/2023 10:30 AM CDT Office Visit [facility] M[facility] Center [address] [address] Jair Sanchez MD [address] [place] [address] 08/19/2023 11:00 AM CDT Appointment [facility] [address] [place] [address] [phone] Urmfmusfet 08/19/2023 11:45 AM CDT Appointment [facility] Maternal Medicine [address] [phone] Jair Sanchez MD [address] [place] [address] [place] [address] 08/19/2023 12:15 PM CDT Office Visit [facility] Maternal Medicine [facility] [place] [address] [place], [place] [address] Jair Sanchez MD [address] [place] [address] [place], [place] [address] 08/31/2023 2:15 PM CDT Appointment [facility] Maternal Medicine [facility] [address] [phone] Jair Sanchez MD [address] 08[address] 08/31/2023 2:45 PM CDT Office Visit [facility] Maternal Medicine [facility] [address] [place], [place] [address] Jair Sanchez MD [address] 0739[address] 08/31/2023 3:00 PM CDT Office Visit [facility] Maternal Medicine [facility] [place] [address] [place], [place] [address] Swati Hurst MD [address] 986134 documented as of this encounter Procedures Procedure Name Priority Date/Time Associated Diagnosis Comments [facility] US COMPREHENSIVE SINGLE F/U Routine 07/31/2023 2:45 PM CDT Congenital heart defect documented in this encounter Results * [facility] US Comprehensive Single F/U (07/31/2023 2:45 PM [...] ? Study Date: ??07/31/2023 2:19pm Pat. NO: ??[id number] ?Referring ??: FRANCIA GILMAN Site: ??[facility] ? Outreach Associate: Justyna Calixto RDMS : ??2000 ?Age: ?? [...] lb 11 ? oz EFW by ?Hadlock ([id number]) Head / Face / Neck Biometry: Hotel Security Officer ? 4.0 ? mm CM ?5.2 ? mm ANATOMY ----- The following structures appear abnormal: Heart / Thorax ?4-chamber view: See Echo report by [facility] from 05/20/2023. LVOT view. 3-vessel view. 1-ldmfcx-kqcfomf view. The following structures appear normal: Head [...] NARAYAN Study Date: 07/31/2023 2:19pm Pat. NO: [id number] Referring MD: FRANCIA GILMAN Site: [facility] Outreach Associate: Justyna Calixto RDMS : 2000 Age: 22 [...] 3 lb 11 oz EFW by Hadlock ([id number]) Head / Face / Neck Biometry: Hotel Security Officer 4.0 mm CM 5.2 mm ANATOMY ----- The following structures appear abnormal: Heart / Thorax 4-chamber view: See Echo reportby [facility] from 05/20/2023. LVOT view. 3-vessel view.2-agwwvk-ngcoftn view. The following structures appear normal: Head [...] We will plan to reassess growth at [facility] in 4weeks. Return to primary provider for continued care. Thank-you for the opportunity to participate in the care of this patient.If you have questions regarding today's evaluation or if we can be [facility]advanced [facility] service, please contact the Maternal- Medicine Center. [...] volume appeared normal. Swati Hurst MD IMG [facility] US ORDERABLE S documented in this encounter Visit Diagnoses Diagnosis Congenital heart defect Unspecified congenital anomaly of heart documented in this encounter Care Teams Lead Cook Relationship Specialty Start Date End Date No Ref-Primary, Physician PCP - General 05/08/23 documented as of this encounter
--- OUTSIDE RECORDS SUMMARY | 2023-08-07 08:18 | XMS_ITS | Encounter Summary ---
Author Organization [place] Address [address] [place] [address]. [place] [address] Care Team Providers Care Rn Radiation Name Role Phone No Ref-Primary, Physician Primary Care Provider Reason for Referral * (Routine) - Closed Specialty Diagnoses / Procedures Referred By Contac t Referred To Contact Cardiology Diagnoses Anomaly of heart of fetus affecting , antepartum, single or unspecified fetus Procedures Echo (TTE) Complete Yifan Clancy MD [address] [place] [address] [facility] [address] [place] [phone] Referral ID Status Reason Start Date Expiration Date Visits Re quested Visits Authorized [id number] Closed 07/14/2023 07/06/2024 1 1 Encounter Details Date Type Department Care Team (Late st Contact Info) Description 07/07/2023 Orders Only [facility] [address] [place] [address] [facility] [address] [place] [address] Yifan Clancy MD [address] [place] [address] Anomaly of heart of fetus affecting [...] Description 08/19/2023 9:30 AM CDT Office Visit [facility] Maternal Medicine [facility] [address] [facility] [place] [address] Jair Sanchez MD [address] [place] [address] 08/19/2023 9:30 AM CDT Office Visit [facility] Foam Rubber Mixer Services [address] [place] [address] [phone] 08/19/2023 10:30 AM CDT Office Visit [facility] Maternal Medicine [facility] [address] [facility] [address] [place], [place] [address] Jair Sanchez MD [address] [place] [address] 559464 08/19/2023 11:00 AM CDT Appointment [facility] [address] [place] [address] [phone] Urmfmusfet 08/19/2023 11:45 AM CDT Appointment [facility] Maternal Medicine [facility] [address] [place] [phone] Jair Sanchez MD [address] [place] [address] 608144 08/19/2023 12:15 PM CDT Office Visit [facility] Maternal Medicine Center [place] [address] [place], [place] [address] Jair Sanchez MD [address] [place] [address] 08/31/2023 2:15 PM CDT Appointment [facility] Maternal Medicine Center [place] [address] [place] [address] Jair Sanchez MD [address] [place] [address] [place], [place] [address] 08/31/2023 2:45 PM CDT Office Visit [facility] Maternal Medicine [facility] [address] [place], [place] [address] Jair Sanchez MD [address] [address] [place], [place] [address] 08/31/2023 3:00 PM CDT Office Visit [facility] Maternal Medicine [facility] [address] [place], [place] [address] Swati Hurst MD [address] [place] [address] [place], [place] [address] documented as of this encounter Results * ECHO COMPLETE (07/14/2023 10:10 AM CDT) Anatomical Region Laterality Modality Echocardiography 07/14/2023 8:18 AM CDT Narrative 07/14/2023 10:23 AM CDT [id number]^ASTON^YIFAN ? Study ID: [id number] ?[facility] ?[facility] ?[address] ?[place] [address] ? Echocardiogram Name: RA NARAYAN Study Date: 07/14/2023 08:18 AM ? Patient Location: [facility] Gender: Female [...] pressure gradient. Delivery is recommended at [facility]. Cardiology consultation and echocardiogram is recommended [...] to the left atrium. There is laminar tdony-dd-yfuu shunting across the foramen ovale. Atrioventricular valves: [...] Note Carlos Alberto Ott MD - 07/14/2023 [id number]^ASTON^YIFAN Study ID:[id number] [facility] [address] [place] [address] Echocardiogram Name: RA NARAYAN Study Date: 07/14/2023 08:18 AM Patient Location: [facility] Gender: Female Patient Class:Outpatient : 2000 [...] limb blood. pressure gradient. Delivery is recommended [facility]. Cardiology consultation and echocardiogram isrecommended immediately after [...] in to the left atrium. There is dwgbxepiascj-gm-wdwe shunting across the foramen ovale. Atrioventricular valves: [...] , antepartum, single or unspecified fetus- Primary Anomaly of heart of fetus affecting , antepartum, single or unspecified fetus documented in this encounter Care Teams Rn Radiation Relationship Specialty Start Date End Date No Ref-Primary, Physician PCP - General 05/08/23 documented as of this encounter
--- OUTSIDE RECORDS SUMMARY | 2023-08-07 08:19 | XMS_ITS | Encounter Summary ---
Author Organization [place] Address [address] [place] [address] Care Team Providers Care Juvenile Detention Officer Name Role Phone No Ref-Primary, Physician Primary Care Provider Encounter Details Date Type Department Care Team (Late st Contact Info) Description 05/21/2023 MyC Medical Advice [facility] [address] [place] [address] Clinic [address] [place] [address] Kym Little, DIPTI Social History Tobacco Use Types Packs/Day Years [...] Description 08/19/2023 9:30 AM CDT Office Visit [facility] Maternal Medicine Center [place] [address] [place] [address] Jair Sanchez MD [address] [facility] 400 [place] [address] 08/19/2023 9:30 AM CDT Office Visit [facility] Director [facility] [address] [place] [phone] 08/19/2023 10:30 AM CDT Office Visit [facility] Maternal Medicine Center [place] [address] [place] [address] Jair Sanchez MD [address] [address] 08/19/2023 11:[address] [facility] [address] [place] [phone] Urmfmusfet 08/19/2023 11:45 AM CDT Appointment [facility] Maternal Medicine [facility] [address] [phone] Jair Sanchez MD [address] [address] 08/19/2023 12:15 PM CDT Office Visit [facility] Maternal Medicine Center [place] [address] [address] Jair Sanchez MD [address] 926424 08/31/2023 2:15 PM CDT Appointment [facility] M[facility] Medicine [facility] [place] [address] [place] [phone] Jair Sanchez MD [address] [address] 08/31/2023 2:45 PM CDT Office Visit [facility] M[facility] Medicine [facility] [place] [address] [address] Jair Sanchez MD [address] [address] 08/31/2023 3:00 PM CDT Office Visit [facility] Maternal Medicine [facility] [address] [address] Swati Hurst MD [address] [address] [place] [address] documented as of this encounter Visit Diagnoses Not on filedocumented in this encounter Care Teams Juvenile Detention Officer Relationship Specialty Start Date End Date No Ref-Primary, Physician PCP - General 05/08/23 documented as of this encounter
--- OUTSIDE RECORDS SUMMARY | 2023-08-07 08:19 | XMS_ITS | Encounter Summary ---
Author Organization [place] Address [facility] [place] [address] Care Team Providers Care Artist Scientific Name Role Phone No Ref-Primary, Physician Primary Care Provider Reason for Referral * Diagnostic Imaging Ultrasound (Routine) - Pending Review Specialty Diagnoses / Procedures Referred By Contac t Referred To Contact Radiology. Diagnoses Maternal care for other (suspected) abnormality and damage, cardiac anomalies, fetus 1 Procedures [facility] US Comprehensive Single F/U Suresh Guzman MD [address] [place] [address] Referral ID Status Reason Start Date Expiration Date V isits Requested Visits Authorized [id number] Pending Review 05/08/2023 05/07/2024 1 1 ONAL CHEF * (Routine) - Closed Specialty Diagnoses / Procedures Referred By Contac t Referred To Contact Cardiology Diagnoses Maternal care for other (suspected) abnormality and damage, cardiac anomalies, fetus 1 Procedures Echo (TTE) Complete Suresh Guzman MD [address] [place] [address] [facility] [address] [place] [address] Referral ID Status Reason Start Date Expiration Date Visits Re quested Visits Authorized [id number] Closed 05/08/2023 05/07/2024 1 1 ONAL CHEF Reason for Visit * Reason Comments Ultrasound L2-covid + in first tri Encounter Details Date Type Department Care Team (Late st Contact Info) Description 05/08/2023 2:45 PM PERSONAL CHEF Office Visit [facility] [place] [address] [place] [phone] [facility] [address] [place] [address] Suresh Guzman MD [address] [place] [address] complicated by congenital heart disease, [...] of this encounter Progress Notes * Suresh Guzman MD - 05/08/2023 2:45 PM CST Please see Imaging tab under Chart Review for details of today's visit. Suresh Guzman ONAL CHEF documented in this encounter Nursing Notes * Shirley Heller, RN - 05/08/2023 2:45 PM CST Patient presents to [facility] for L2 at 19w0d due to covid + in first tri. Positive movement. Denies LOF, vaginal bleeding or cramping/contractions. SBAR given to [facility] , see their note in Epic. ONAL CHEF documented in this encounter Plan of Treatment Upcoming Encounters Date Type Department Care Team (Late st Contact Info) Description 08/19/2023 9:30 AM CDT Office Visit [facility] [place] [address] [place] [address] Jair Sanchez MD [address] [facility] [address] [address] 08/19/2023 9:30 AM CDT Office Visit [facility] Typewriter Tester Services [address] [place] [phone] 08/19/2023 10:30 AM CDT Office Visit [facility] [place] [address] [facility] [place] [address] Jair Sanchez MD [address] [place] [address] 08/19/2023 11:00 AM CDT Appointment [facility] [address] [place] [address] [phone] Urmfmusfet 08/19/2023 11:45 AM CDT Appointment [facility] [place] [address] [place] [phone] Jair Sanchez MD [address] [place] [address] 08/19/2023 12:15 PM CDT Office Visit [facility] [place] [address] [place] [address] Jair Sanchez MD [address] [place] [address] 08/31/2023 2:15 PM CDT Appointment [facility] [place] [address] [place] [phone] Jair Sanchez MD [address] [place], [place] [address] 08/31/2023 2:45 PM CDT Office Visit [facility] Medicine [facility] [address] [place], [place] [address] Jair Sanchez MD [address] [place], [place] [address] 08/31/2023 3:00 PM CDT Office Visit [facility] Medicine [facility] [address] [place] [address] Swati Hurst MD [address] [place] [phone] documented as of this encounter Results * [facility] US Comprehensive Single F/U (06/01/2023 8:34 [...] ? Study Date: ??06/01/2023 7:57am Pat. NO: ??[id number] ?Referring ??MD: FRANCIA EPPS Site: [facility] ? Hard Tile Setter: Mumtaz Ventura RDMS : ??2000 ?Age: ?? [...] 1 lb 1 ?oz EFW by ?Hadlock ([id number]-FL) Head / Face / Neck Biometry: Religious Education Teacher ? 5.4 ? mm CM ?5.2 ? mm ANATOMY ----- The following structures appear abnormal: Heart / Thorax ?4-chamber view: Left side of the heart is small . LVOT view. 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 3-vessel view: small aorta. ? 1-fkluql-lsvdnhv view: small aorta . The following structures [...] the patient (reviewing medical records/tests), in direct qisi-ln-vkfx contact with the patient during her visit with the majority spent counseling and discussing the plan of care and documenting the visit in the electronic medical record. Please see note for details. Procedure Note Swati Hurst MD - 06/01/2023 Comp Follow Up ----- Pat. Name: RA NARAYAN Study Date: 06/01/2023 7:57am Pat. NO: [id number] Referring MD: FRANCIA EPPS Site: [facility] Hard Tile Setter: Mumtaz Ventura RDMS : 2000 Age: 22 [...] 1 lb 1 oz EFW by Hadlock (FQC-OB-SB-FL) Head / Face / Neck Biometry: Religious Education Teacher 5.4 mm CM 5.2 mm ANATOMY ----- The following structures appear abnormal: Heart / Thorax 4-chamber view: Left side of the heartis small . LVOT view. 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 3-fxlrpy-swxzssi view: smallaorta . The following structures appear [...] delay today. Plan for repeat assessment with M of cardiac anatomy and growth in4 weeks. Return to primary provider for continued care. If you have questions regarding today's evaluation or if we can be offurther service, please contact the Maternal- Medicine Center. anomalies may be present but not detected I spent a total of 15 minutes on the date of this encounter includingpreparing to see the patient (reviewing medical records/tests), in qavinndgej-wq-xdqg contact with the patient during her visit [...] The amniotic fluid volume appeared normal. Suresh Guzman MD [facility] US ORDERABLE S * ECHO COMPLETE (05/20/2023 9:52 AM PERSONAL CHEF) Anatomical Region Laterality Modality Echocardiography 05/20/2023 8:11 AM PERSONAL CHEF Narrative 05/20/2023 10:23 AM PERSONAL CHEF [id number]^NEREIDA^SURESH ? Study ID: [id number] ?[facility] ?[facility] ?[address] ?[place] [address] ? Echocardiogram Name: RA NARAYAN Study Date: [...] to the left atrium. There is laminar mpixq-ym-ddlw shunting across the foramen ovale. Atrioventricular valves: [...] Procedure Note Yifan Aponte MD - 05/20/2023 [id number]^NEREIDA^SURESH Study ID:[id number] [facility] [address] [address] Echocardiogram Name: RA NARAYAN Study Date: 05/20/2023 08:11 AM Patient Location: [facility] Gender: Female Patient Class:Outpatient : 2000 Age: [...] in to the left atrium. There is cryszcxxcaxz-pu-yreo shunting across the foramen ovale. Atrioventricular valves: [...] fetus documented in this encounter Care Teams Artist Scientific Relationship Specialty Start Date End Date No Ref-Primary, Physician PCP - General 05/08/23 documented as of this encounter
--- OUTSIDE RECORDS SUMMARY | 2023-08-07 08:19 | XMS_ITS | Encounter Summary ---
Author Organization [place] Address [facility] [place] [address] Care Team Providers Care Electric Stop Installer Name Role Phone No Ref-Primary, Physician Primary [...] Description 08/19/2023 9:30 AM CDT Office Visit [facility] [place] [address] [place], [place] [address] Jair Sanchez MD [address] [phone] 08/19/2023 9:30 AM CDT Office Visit [facility] Dental Associate Services [address] [place] [phone] 08/19/2023 10:30 AM CDT Office Visit [facility] [place] [address] [place], [place] [phone] Jair Sanchez MD [address] [place] [address] [address] 08/19/2023 11:00 AM CDT Appointment [facility] [address] [place] [phone] Urmfmusfet 08/19/2023 11:45 AM CDT Appointment [facility] Maternal Medicine [facility] [address] [place] [phone] Jair Sanchez MD [address] [facility] [address] [address] 08/19/2023 12:15 PM CDT Office Visit [facility] Maternal Medicine [facility] [address] [place] [address] Jair Sanchez MD [address] [facility] [address] 7[address] 08/31/2023 2:15 PM CDT Appointment [facility] Maternal [facility] [address] [place] [phone] Jair Sanchez MD [address] [facility] [address] [address] 08/31/2023 2:45 PM CDT Office Visit [facility] Maternal Medicine [facility] [address] [place] [address] Jair Sanchez MD [address] [facility] [address] [address] 08/31/2023 3:00 PM CDT Office Visit [facility] [place] [address] [place], [place] [address] Swati Hurst MD [address] [address] documented as of this encounter Visit Diagnoses Not on filedocumented in this encounter Care Teams Electric Stop Installer Relationship Specialty Start Date End Date No Ref-Primary, Physician PCP - General 05/08/23 documented as of this encounter
--- OUTSIDE RECORDS SUMMARY | 2023-08-07 08:19 | XMS_ITS | Clinical Summary ---
Author Organization [facility] Address [place], [place] [address] Care Team Providers Care Bench Worker Helper Name Role Phone Anitha Ojeda DO Primary Care Provider [phone] Allergies Active Allergy Reactions Criticality Noted Date Comments [place] Shortness Of Breath,Rash 01/03/2020 Medications Medication Sig [...] Comments Blood Pressure 121/78 02/18/2022 9:36 AM FOUNDRY PATTERNMAKER Pulse 70 02/18/2022 9:36 AM FOUNDRY PATTERNMAKER Temperature 37.1 ??C (98.8 ??F) 09/30/2021 1:43 PM CD T Respiratory Rate 14 12/21/2020 8:12 AM CDT Oxygen Saturation 99% 02/18/2022 9:36 AM FOUNDRY PATTERNMAKER Inhaled Oxygen Concentration - - Weight 82.6 kg (182 lb) 02/18/2022 9:36 AM FOUNDRY PATTERNMAKER Height 157 cm (5' 1.81) 07/11/2021 8:31 [...] 11/15/2023 Pap test for age 21-65 09/12/2025 3, 09/12/2022, 11/13/2021 Tetanus booster 07/18/2029 07/19/2019 Tdap [...] CHLAMYDIA TRACH PROBE Routine 05/20/2021 3:33 PM FOUNDRY PATTERNMAKER Routine screening for STI (sexually transmitted infection) ANTI HIV 1/2 Routine 06/29/2020 3:20 PM CDT Leukocytosis, unspecified type Thrombocytosis (HC) from Last 3 Months or Most Recently Relevant to Health Maintenance Results * HPV HIGH RISK (09/12/2022 3:00 PM CDT) TYPE 16 Negative Negative 09/23/2022 5:00 PM CDT [facility] TYPE 18 Negative Negative 09/23/2022 5:00 PM CDT [facility] OTHER HIGH RISK TYPES Negative Negative 09/23/2022 5:00 PM CDT [facility] Other (Other) 09/12/2022 3:0 0 PM CDT 09/17/2022 12:19 PM CDT Narrative [facility] - 09/23/2022 5:00 PM CDT HPV types 16, 18, 31, 33, 35, 39, 45, 51, 52, 56, 58, 59, 66 and 68 DNA were undetectable or below the pre-set threshold. Methodology: Michelle Adela 4800 HPV Test Alley Johnson MD MICROBIOLO GY [facility] [address] [place] [address], [place] * GC CHLAMYDIA TRACH PROBE (05/20/2021 3:33 PM FOUNDRY PATTERNMAKER) CHLAMYDIA PROBE Negative 4:11 AM FOUNDRY PATTERNMAKER [facility] N GONORRHOEAE PROBE Negative 05/21/2021 4:11 AM FOUNDRY PATTERNMAKER [facility] Other URINE SPECIMEN / Unknown Non-Blood / Unknown 05/20/2021 3:33 PM FOUNDRY PATTERNMAKER 05/20/2021 3:34 PM FOUNDRY PATTERNMAKER Madina Goetz MD MICROBIOLOG Y [facility] [address] [place] [address], * ANTI HIV 1/2 (06/29/2020 3:20 PM CDT) Pathologist [facility] HIV-1/HIV-2 ANTIBODY Non-Reacti ve Non-Reacti ve 06/29/2020 9:14 PM CDT [facility] Comment:HIV-1 p24 and HIV-1/ HIV-2 Ab not detected. Blood BLOOD SPECIMEN / Unknown Venipuncture / Unknown 06/29/2020 3:20 PM CDT 06/29/2020 3:20 PM CDT Anitha Ojeda DO SEND OUTS Performing Organization Address [facility]/ZIP Co de Phone Number [facility] [address] [place] [address], from Last 3 Months or Most Recently Relevant to Health Maintenance Care Teams Bench Worker Helper Relationship Specialty Start Date End Date Anitha Ojeda DO [facility] [place] [address] PCP - General Family Practice 07/05/20
--- OUTSIDE RECORDS SUMMARY | 2023-08-07 08:19 | XMS_ITS | Encounter Summary ---
Author Organization [place] Address [address] [facility] [place] [address] Care Team Providers Care Manager Supply Chain Name Role Phone No Ref-Primary, Physician Primary Care Provider Reason for Referral * Consultation (Routine: Next available opening) - Pending Review Specialty Diagnoses / Procedures Referred By Contac t Referred To Contact Diagnoses Abnormal ultrasound abnormality affecting management of mother, single or unspecified fetus Encounter for procreative genetic counseling and testing Leyda Guzman MD [address] [facility] [address] [place] [address] Referral ID Status Reason Start Date Expiration Date V isits Requested Visits Authorized [id number] Pending Review 05/08/2023 05/07/2024 1 1 ING AND FINAL ASSEMBLY SUPERVISOR Encounter Details Date Type Department Care Team (Late st Contact Info) Description 05/08/2023 Orders Only [facility] M[facility] [place] [address] [place] [phone] Kody Davey GC [address] [place] [address] Abnormal ultrasound (Primary Dx); abnormality affecting management of mother, single or unspecified fetus; Encounter for procreative genetic counseling and testing Social History Tobacco Use Types Packs/Day Years Used Date Smoking Tobacco: Never Assessed Adolescent Education Answer Date Record ed Getting School Help Needed Not on file 01/03 /2024 Estimated Date of Delivery Comme nts Yes 10/02/2023 Based on Ultraso und Sex and Gender Information Value Date Recorded Sex Assigned at Not on file Gender Identity Not on file Sexual Orientation Not on file documented as of this encounter Plan of Treatment Upcoming Encounters Date Type Department Care Team (Late st Contact Info) Description 08/19/2023 9:30 AM CDT Office Visit [facility] Maternal Medicine [facility] [address] [place] [address] Jair Sanchez MD [address] [place] [address] 08/19/2023 9:30 AM CDT Office Visit [facility] Steam Trap Man Services [address] [place] [address] [phone] 08/19/2023 10:30 AM CDT Office Visit [facility] Maternal Medicine [facility] [address] [place] [address] Jair Sanchez MD [address] [place] [address] 08/19/2023 11:00 AM CDT Appointment [facility] [address] [place] [address] [phone] Urmfmusfet 08/19/2023 11:45 AM CDT Appointment [facility] Maternal Medicine [facility] [address] [place] [address] [phone] Jair Sanchez MD [address] [place] [address] 08/19/2023 12:15 PM CDT Office Visit [facility] Maternal Medicine [facility] [address] [place] [address] Jair Sanchez MD [address] [place] [address] [phone] 08/31/2023 2:15 PM CDT Appointment [facility] Maternal Medicine [facility] [address] [place] [phone] Jair Sanchez MD [address] [place] [address] 08/31/2023 2:45 PM CDT Office Visit [facility] Maternal Medicine [facility] [address] [place] [address] Jair Sanchez MD [address] [place], [place] [address] 08/31/2023 3:00 PM CDT Office Visit [facility] Maternal Medicine [facility] [address] [place], [place] [address] Swati Hurst MD [address] [place], [place] [phone] Scheduled Referrals Name Type Priority Associated Diagnoses Orde r Schedule [facility] Genetic Counseling Referral Routine: Next available opening [...] testing documented in this encounter Care Teams Manager Supply Chain Relationship Specialty Start Date End Date No Ref-Primary, Physician PCP - General 05/08/23 documented as of this encounter
--- OUTSIDE RECORDS SUMMARY | 2023-08-07 08:19 | XMS_ITS | Encounter Summary ---
Author Organization [place] Address [address] [facility] [place] [address] Care Team Providers Care Drug Regulatory Affairs Specialist Name Role Phone No Ref-Primary, Physician Primary Care Provider Reason for Referral * Diagnostic Imaging Ultrasound (Routine) - Pending Review Specialty Diagnoses / Procedures Referred By Contac t Referred To Contact Radiology. Diagnoses related condition, antepartum Procedures [facility] US [facility] Francia Epps APRN [facility] [address] [place] [address] Referral ID Status Reason Start Date Expiration Date V isits Requested Visits Authorized [id number] Pending Review 03/18/2023 03/17/2024 1 1 EM SALES CONSULTANT Reason for Visit * Diagnostic Imaging Ultrasound (Routine) - Pending Review Specialty Diagnoses / Procedures Referred By Contac t Referred To Contact Radiology. Diagnoses related condition, antepartum Procedures [facility] Francia Epps APRN [facility] [address] [place] [address] Referral ID Status Reason Start Date Expiration Date V isits Requested Visits Authorized [id number] Pending Review 03/18/2023 03/17/2024 1 1 Encounter Details Date Type Department Care Team (Latest Contact Info) Description 05/08/2023 2:05 PM SYSTEM SALES CONSULTANT - 05/08/2023 11:59 PM SYSTEM SALES CONSULTANT Hospital Encounter [facility] M[facility] Medicine [facility] [place] [address] [place] [phone] Francia Epps APRN [facility] [address] [address] Leyda Guzman MD [address] [place] [phone] related condition, antepartum Discharge Disposition: Home or [...] Description 08/19/2023 9:30 AM CDT Office Visit [facility] [place] [address] [place] [address]44344 Jair Sanchez MD [address] [place] [phone] 08/19/2023 9:30 AM CDT Office Visit [facility] Tool And Die Technician Services [facility] [place] [phone] 08/19/2023 10:30 AM CDT Office Visit [facility] [place] [address] [place] [phone] Jair Sanchez MD [address] [place], [place] [address] [address] [address] 08/19/2023 11:00 AM CDT Appointment [facility] [address] [place] [phone] Urmfmusfet 08/19/2023 11:45 AM CDT Appointment [facility] [place] [address] [place] [phone] Jair Sanchez MD [address] [address] 08/19/2023 12:15 PM CDT Office Visit [facility] [place] [address] [place], [place] [address] Jair Sanchez MD [address] [phone] 08/31/2023 2:15 PM CDT Appointment [facility] Maternal Medicine [facility] [address] [place] [phone] Jair Sanchez MD [address] 748[address] 08/31/2023 2:45 PM CDT Office Visit [facility] Maternal Medicine [facility] [address] [place], [place] [address] Jair Sanchez MD [address] [address] 08/31/2023 3:00 PM CDT Office Visit [facility] Maternal Medicine [facility] [address] [place] [address] Swati Hurst MD [address] [address] documented as of this encounter Procedures Procedure Name Priority Date/Time Associated Diagnosis Comments [facility] COMPREHENSIVE SINGLE Routine 05/08/2023 3:10 PM SYSTEM SALES CONSULTANT related condition, antepartum documented in this encounter Results * [facility] US Comprehensive Single (05/08/2023 3:10 PM SYSTEM SALES CONSULTANT) Anatomical Region Laterality Modality Ultrasound 05/08/2023 1:57 PM SYSTEM SALES CONSULTANT Impressions 05/08/2023 7:13 PM SYSTEM SALES CONSULTANT IMPRESSION ----- 1) Estrada intrauterine at 19w [...] volume appeared normal. Narrative 05/08/2023 7:13 PM SYSTEM SALES CONSULTANT ?Comprehensive ----- Pat. Name: RA NARAYAN ? Study Date: ??05/08/2023 1:57pm Pat. NO: ??[id number] ?Referring ??MD: FRANCIA EPPS Site: ??[facility] ? Edi Analyst: Bettie Bernstein RDMS : ??2000 ?Age: ?? [...] 0 lb 9 ?oz EFW by ?Hadlock ([id number]-FL) Head / Face / Neck Biometry: Type Bar And Segment Assembler ? 5.6 ? mm CM ?5.6 ? [...] pulmonary artery and the superior vena cava 5-anmgjx-fralwoe view ? abnormal, Aorta is small compared [...] the patient (reviewing medical records/tests), in direct yjfp-ot-dtsm contact with the patient during her visit with the majority spent counseling and discussing the plan of care and documenting the visit in the electronic medical record. Please see note for details. Procedure Note Leyda Guzman MD - 05/08/2023 Comprehensive ----- Pat. Name: RA NARAYAN Study Date: 05/08/2023 1:57pm Pat. NO: [id number] Referring MD: FRANCIA EPPS Site: [facility] Edi Analyst: Bettie Bernstein RDMS : 2000 Age: 22 [...] 0 lb 9 oz EFW by Hadlock (RKK-UQ-MR-FL) Head / Face / Neck Biometry: Type Bar And Segment Assembler 5.6 mm CM 5.6 mm Nasal bone [...] the pulmonary artery and thesuperior vena cava 5-xlkgrd-ubkqrvd viewabnormal, Aorta is small compared to the [...] see the patient (reviewing medical records/tests), in xpzelphwtc-og-ynwm contact with the patient during her visit [...] antepartum documented in this encounter Care Teams Drug Regulatory Affairs Specialist Relationship Specialty Start Date End Date No Ref-Primary, Physician PCP - General 05/08/23 documented as of this encounter
--- OUTSIDE RECORDS SUMMARY | 2023-08-07 08:19 | XMS_ITS | Encounter Summary ---
Author Organization [place] Address [address] [place] [address] Care Team Providers Care Beauty Advisor Name Role Phone No Ref-Primary, Physician Primary Care Provider Encounter Details Date Type Department Care Team ([facility] st Contact Info) Description 05/20/2023 Office Visit [facility] [address] [facility] [address] [place] [address] Yifan Aponte MD [address] [place] [address] Anomaly of heart of fetus affecting [...] Aponte MD - 05/20/2023 7:58 AM CST [facility] Consult Note Patient: Rosemary Osborne Date of : 2000 Age: [age] year old Date of Visit: 05/20/2023 PCP: No Ref-Primary, Physician Dear Doctor: I had the pleasure of seeing Rosemary Osborne at the [facility] on 05/20/2023 in cardiology consultation for echocardiogram [...] suspect the baby will require delivery at [facility] but this will be determined at future [...] the visit. Michi Aponte M.D. Pediatric Cardiology [facility] Children[facility] [address] Academic Office Building 4th [facility], [place] [address] M SEPARATOR OPERATOR documented in this encounter Plan of Treatment Upcoming Encounters Date Type Department Care Team (Late st Contact Info) Description 08/19/2023 9:30 AM CDT Office Visit [facility] Maternal Medicine [facility] [address] [place] [address] Jair Sanchez MD [address] [place], [place] [address] [address] [address] 08/19/2023 9:30 AM CDT Office Visit [facility] Main Line Station Engineer Services [address] [place] [address] [phone] 08/19/2023 10:30 AM CDT Office Visit [facility] Maternal Medicine [facility] [address] [place] [address] Jair Sanchez MD [address] [place] [address] 08/19/2023 11:00 AM CDT Appointment [facility] Heart Care [address] [place] [address] [phone] Urmfmusfet 08/19/2023 11:45 AM CDT Appointment [facility] Maternal Medicine [facility] [address] [place] [phone] Jair Sanchez MD [address] [place], [place] [address] [address] [address] 08/19/2023 12:15 PM CDT Office Visit [facility] Maternal [facility] [address] [place] [address] Jair Sanchez MD [address] [place] [address] 08/31/2023 2:15 PM CDT Appointment [facility] Maternal Medicine Center [place] [address] [place] [address] Jair Sanchez MD [address] 9255[address] 08/31/2023 2:45 PM CDT Office Visit [facility] Maternal Medicine [facility] [address] [place] [address] Jair Sanchez MD [address] [address] 08/31/2023 3:00 PM CDT Office Visit [facility] Maternal [facility] [address] [place] [address] Swati Hurst MD [address] 722694 documented as of this encounter Visit Diagnoses Diagnosis Anomaly of heart of fetus affecting , antepartum, single or unspecified fetus- Primary documented in this encounter Care Teams Beauty Advisor Relationship Specialty Start Date End Date No Ref-Primary, Physician PCP - General 05/08/23 documented as of this encounter
--- OUTSIDE RECORDS SUMMARY | 2023-08-07 08:19 | XMS_ITS | Encounter Summary ---
Author Organization [place] Address [address] [facility] [place] [address] Care Team Providers Care Senior Linux Engineer Name Role Phone No Ref-Primary, Physician [...] MD [address] [place] [address] Referral ID Status Reason Start Date Expiration Date V isits Requested Visits Authorized [id number] Pending Review 05/08/2023 05/07/2024 1 1 Encounter Details Date Type Department Care Team (Late st Contact Info) Description 05/08/2023 3:00 PM BENCH ASSEMBLER BATTERY Office Visit [facility] Maternal Medicine Center [place] [address] [facility] [address] [place] [address] Leyda Guzman MD [address] [place] [address] Kody Davey GC [address] [place] [address] Abnormal ultrasound; abnormality affecting management [...] Davey GC - 05/08/2023 3:00 PM CST [facility] Medicine Center Genetic Counseling Consult Patient: Rosemary Osborne Preferred Name: Rosemary Date of : 2000 Date of Service: 05/08/23 Rosemary was seen at the [facility] Maternal Medicine Center for genetic consultation. The indication for genetic counseling is abnormal ultrasound. The patient was accompanied to this visit by their partner. The session was conducted in Georgian. A blanket cutter hand was offered and declined. IMPRESSION/ PLAN 1. 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 2. During today's [facility] visit, Rosemary had a blood draw for non-invasive testing (also called NIPT, NIPS, or cell-free DNA), called MaterniT Genome, through [employer]. This NIPT screens for genome-wide aneuploidies. The patient opted to screen for sex chromosome aneuploidies, including reported sex. Results are expected in 7-10 days. The patient will be called with results and if they do not answer they requested a detailed message with results on their voicemail. Patient was informed that results will be available in 8aweek. 3. Rosemary had a level II comprehensive anatomy ultrasound today. Please see the ultrasound report for further details. 5. Further recommendations include a follow up level II ultrasound and echocardiogram with [facility]. The appointment(s) has not been scheduled yet. [facility] schedulers will reach out or the patient can call [phone]. HISTORY /Parity: CURRENT Current Age: [age] year [...] deletion syndrome is available (Expanded NIPS through [employer]). We discussed the limitations of cell -free [...] options: Nuchal translucency (NT) ultrasound Ultrasound between [id number] that includes nuchal translucency measurement and nasal [...] pleasure to be involved with Rosemary???s anayeli. [id number] time of the meeting was 15 minutes. Kody Davey, ISSA, MS, [facility] Board Certified and [place] Licensed Genetic Counselor [facility] Maternal Medicine Office: [phone] MFM: [phone] [facility] MFM H ASSEMBLER BATTERY documented in this encounter Plan of Treatment Upcoming Encounters Date Type Department Care Team (Late st Contact Info) Description 08/19/2023 9:30 AM CDT Office Visit [facility] Maternal Medicine [facility] [address] [place] [address] Jair Sanchez MD [address] [place], [place] [address] [address] [address] 08/19/2023 9:30 AM CDT Office Visit [facility] Vocational Education Teacher Services [address] [place] [address] [phone] 08/19/2023 10:30 AM CDT Office Visit [facility] Maternal Medicine [facility] [address] [place], [place] [address] Jair Sanchez MD [address] [place], [place] [address] [address] 140164 08/19/2023 11:00 AM CDT Appointment [facility] Childrens [facility] Heart Care [address] [place] [address] [phone] Urmfmusfet 08/19/2023 11:45 AM CDT Appointment [facility] Maternal Medicine [facility] [address] [place] [phone] Jair Sanchez MD [address] [address] [facility] [address] 893194 08/19/2023 12:15 PM CDT Office Visit [facility] Maternal Medicine [facility] [address] [place], [place] [address] Jair Sanchez MD [address] [address] [address] 08/31/2023 2:15 PM CDT Appointment [facility] Maternal Medicine Center [place] [address] [place] [address] Jair Sanchez MD [address] [place] [address] 08/31/2023 2:45 PM CDT Office Visit [facility] Maternal Medicine [facility] [address] [place] [address] Jair Sanchez MD [address] [address] 08/31/2023 3:00 PM CDT Office Visit [facility] Maternal Medicine [facility] [address] [place] [address] Swati Hurst MD [address] [address] Pending Results Name Type Priority Associated Diagnoses Date /Time Other Laboratory; [facility]; MaterniT Genome NIPT (Laboratory Miscellaneous Order) Lab Routine Abnormal ultrasound abnormality affecting management of mother, single or unspecified fetus Encounter for procreative genetic counseling and testing 05/08/2023 4:55 PM BENCH ASSEMBLER BATTERY Scheduled Orders Name Type Priority Associated Diagnoses [...] testing documented in this encounter Care Teams Senior Linux Engineer Relationship Specialty Start Date End Date No Ref-Primary, Physician PCP - General 05/08/23 documented as of this encounter
--- OUTSIDE RECORDS SUMMARY | 2023-08-07 08:19 | XMS_ITS | Encounter Summary ---
Author Organization [place] Address [address] [facility] [place] [address] Care Team Providers Care Decorator Street And Building Name Role Phone No Ref-Primary, Physician Primary Care Provider Encounter Details Date Type Department Care Team (Late st Contact Info) Description 05/12/2023 Documentation Only [facility] M[facility] Medicine [facility] [place] [address] [place] [phone] Kody Davey GC [address] [place], [place] [phone] Social History Tobacco Use Types Packs/Day Years [...] Kody Davey GC - 05/12/2023 1:38 PM CLOSET BUILDER 05/12/2023 Received notification from [facility] that Rosemary has already completed standard NIPT through her primary OB, and that prior testing will be amended to include the expanded materniTGenome analysis instead of processing the sample collected last week with [facility]. Kody Davey MS, [facility] Licensed Genetic Counselor Pager: [phone] ET BUILDER documented in this encounter Plan of Treatment Upcoming Encounters Date Type Department Care Team (Late st Contact Info) Description 08/19/2023 9:30 AM CDT Office Visit [facility] Maternal Medicine Center [place] [address] [place] [address] Jair Sanchez MD [address] [place] [address] 08/19/2023 9:30 AM CDT Office Visit [facility] Metal Fitters [employer] Machinists Services [address] [place] [address] [phone] 08/19/2023 10:30 AM CDT Office Visit [facility] Maternal Medicine [facility] [address] [address] Jair Sanchez MD [address] [place] [address] 08/19/2023 11:00 AM CDT Appointment [facility] Heart Care [address] [place] [address] [phone] Urmfmusfet 08/19/2023 11:45 AM CDT Appointment [facility] Maternal Medicine [facility] [address] [place] [phone] Jair Sanchez MD [address] [place] [address] 08/19/2023 12:15 PM CDT Office Visit [facility] Maternal Medicine [facility] [address] [place] [address] Jair Sanchez MD [address] [place] [address] 08/31/2023 2:15 PM CDT Appointment [facility] Maternal Medicine [facility] [address] [place] [address] Jair Sanchez MD [address] [place] [address] 08/31/2023 2:45 PM CDT Office Visit [facility] Maternal Medicine [facility] [address] [place] [address] Jair Sanchez MD [address] 799444 08/31/2023 3:00 PM CDT Office Visit [facility] Maternal Medicine [facility] [address] [place] [address] Swati Hurst MD [address] [phone] documented as of this encounter Visit Diagnoses Not on filedocumented in this encounter Care Teams Decorator Street And Building Relationship Specialty Start Date End Date No Ref-Primary, Physician PCP - General 05/08/23 documented as of this encounter
--- OUTSIDE RECORDS SUMMARY | 2023-08-07 08:19 | XMS_ITS | Encounter Summary ---
Author Organization [place] Address On license of [facility] [place] [address] Care Team Providers Care Lumber Trimmer Name Role Phone No Ref-Primary, Physician Primary Care Provider Reason for Referral * (Routine) - Closed Specialty Diagnoses / Procedures Referred By Contac t Referred To Contact Cardiology Diagnoses Maternal care for other (suspected) abnormality and damage, cardiac anomalies, fetus 1 Procedures Echo (TTE) Complete Suresh Guzman MD [address] [address] [facility] [address] [place] [phone] Referral ID Status Reason Start Date Expiration Date Visits Re quested Visits Authorized [id number] Closed 05/08/2023 05/07/2024 1 1 ICAL INFORMATICS EDUCATOR Reason for Visit * (Routine) - Closed Specialty Diagnoses / Procedures Referred By Contac t Referred To Contact Cardiology Diagnoses Maternal care for other (suspected) abnormality and damage, cardiac anomalies, fetus 1 Procedures Echo (TTE) Suresh Munson MD [address] [address] [facility] [address] [place] [phone] Referral ID Status Reason Start Date Expiration Date Visits Re quested Visits Authorized [id number] Closed 05/08/2023 05/07/2024 1 1 Encounter Details Date Type Department Care Team (Latest Contact Info) Description 05/20/2023 7:55 AM CLINICAL INFORMATICS EDUCATOR - 05/20/2023 11:59 PM CLINICAL INFORMATICS EDUCATOR Hospital Encounter [facility] Heart Care [address] [place] [address] [phone] Suresh Guzman MD [address] [place] [address] [phone] complicated by congenital heart disease, single or [...] Description 08/19/2023 9:30 AM CDT Office Visit [facility] Maternal Medicine Center [address] [phone] Jair Sanchez MD [address] [place] [address] 08/19/2023 9:30 AM CDT Office Visit [facility] Fire Protection Fabricator Services [address] [place] [address] [phone] 08/19/2023 10:30 AM CDT Office Visit [facility] Maternal Medicine Center [address] 303714 Jair Sanchez MD [address] [place] [address] [phone] 08/19/2023 11:00 AM CDT Appointment [facility] Heart [address] [phone] Urmfmusfet 08/19/2023 11:45 AM CDT Appointment [facility] Maternal Medicine [facility] [address] [place] [phone] Jair Sanchez MD [address] [place] [address] [phone] 08/19/2023 12:15 PM CDT Office Visit [facility] Maternal Medicine [facility] [address] [facility] [place], [place] [address] Jair Sanchez MD [address] [place] [address] [phone] 08/31/2023 2:15 PM CDT Appointment [facility] Maternal Medicine [facility] [address] [facility] [place] [phone] Jair Sanchez MD [address] [place] [address] [phone] 08/31/2023 2:45 PM CDT Office Visit [facility] Maternal Medicine Center [place] [address] [place], [place] [address] Jair Sanchez MD [address] [place] [address] [phone] 08/31/2023 3:00 PM CDT Office Visit [facility] Maternal Medicine Center [place] [address] [place], [place] [address] Swati Hurst MD [address] [place], [place] [address] [address] 2595[address] documented as of this encounter Procedures Procedure Name Priority Date/Time Associated Diagnosis Comments ECHO COMPLETE Routine 05/20/2023 9 :52 AM CLINICAL INFORMATICS EDUCATOR complicated by congenital heart disease, single or unspecified fetus documented in this encounter Results * ECHO COMPLETE (05/20/2023 9:52 AM CLINICAL INFORMATICS EDUCATOR) Anatomical Region Laterality Modality Echocardiography 05/20/2023 8:11 AM CLINICAL INFORMATICS EDUCATOR Narrative 05/20/2023 10:23 AM CLINICAL INFORMATICS EDUCATOR [id number]^NEREIDA^SURESH ? Study ID: [id number] ?[facility] ?[facility] ?[address] ?[place] [address] ? Echocardiogram Name: RA NARAYAN Study Date: 05/20/2023 08:11 AM ? Patient Location: [facility] Gender: Female ?Patient Class: Outpatient : 2000 ? Age: 22 yrs Ordering Provider: SURESH GUZMNA Referring Provider: SURESH GUZMAN Performed By: Mauricio [...] to the left atrium. There is laminar krnjr-wr-wlrm shunting across the foramen ovale. Atrioventricular valves: [...] Procedure Note Yifan Aponte MD - 05/20/2023 [id number]^NEREIDA^SURESH Study ID:[id number] [facility] [place] [address] Echocardiogram Name: RA NARAYAN Study Date: 05/20/2023 08:11 AM Patient Location: [facility] Gender: Female Patient Class:Outpatient : [...] in to the left atrium. There is urauuewdilwu-uq-cmks shunting across the foramen ovale. Atrioventricular valves: [...] fetus documented in this encounter Care Teams Lumber Trimmer Relationship Specialty Start Date End Date No Ref-Primary, Physician PCP - General 05/08/23 documented as of this encounter
--- OUTSIDE RECORDS SUMMARY | 2023-08-07 08:19 | XMS_ITS | Encounter Summary ---
Author Organization [place] Address [facility] [place] [address] Care Team Providers Care Supervisor International Reservations Name Role Phone No Ref-Primary, Physician Primary [...] [facility] [place] [address] [place], [place] [address] Jair Sanchez MD [address] [id number] 08/19/2023 9:30 AM CDT Office Visit [facility] Clinical Safety Specialist Services [address] [place] [phone] 08/19/2023 10:30 AM CDT Office Visit [facility] Maternal Medicine [facility] [place] [address] [place], [place] [address] Jair Sanchez MD [address] [place] [address] [address] [address] 08/19/2023 11:[address] [facility] Heart Care [address] [place] [phone] Urmfmusfet 08/19/2023 11:45 AM CDT Appointment [facility] Maternal Medicine [facility] [address] [place] [phone] Jair Sanchez MD [address] [facility] [address] [address] 08/19/2023 12:15 PM CDT Office Visit [facility] Maternal Medicine [facility] [address] [place] [address] Jair Sanchez MD [address] [facility] [address] 338[address] 08/31/2023 2:15 PM CDT Appointment [facility] Maternal Medicine [facility] [address] [place] [phone] Jair Sanchez MD [address] [facility] [address] [address] 08/31/2023 2:45 PM CDT Office Visit [facility] Maternal Medicine [facility] [address] [place] [address] Jair Sanchez MD [address] [facility] [address] 712314 08/31/2023 3:00 PM CDT Office Visit [facility] Maternal Medicine [facility] [place] [address] [place], [place] [address] Swati Hurst MD [address] 657[address] documented as of this encounter Visit Diagnoses Not on filedocumented in this encounter Care Teams Supervisor International Reservations Relationship Specialty Start Date End Date No Ref-Primary, Physician PCP - General 05/08/23 documented as of this encounter
--- OUTSIDE RECORDS SUMMARY | 2023-08-07 08:19 | XMS_ITS | Encounter Summary ---
Author Organization [place] Address [address] [place] [address]. [place] [address] Care Team Providers Care Acrobatic Rigger Name Role Phone No Ref-Primary, Physician Primary Care Provider Encounter Details Date Type Department Care Team (Late st Contact Info) Description 05/08/2023 Medical Correspondence [facility] Mgmt [facility] [address] [place] [phone] Scan, Non-Provider Social History Tobacco Use [...] Description 08/19/2023 9:30 AM CDT Office Visit [facility] Maternal Medicine Center [place] [address] [place], [place] [phone] Jair Sanchez MD [address] [facility] [address] [place] [address] 08/19/2023 9:30 AM CDT Office Visit [facility] Rolling Down Machine Operator Services [facility] [place] [address] 08/19/2023 10:30 AM CDT Office Visit [facility] Maternal Medicine [facility] [place] [address] [place] [address] Jair Sanchez MD [address] [address] 08/19/2023 11:00 AM CDT Appointment [facility] [address] [place] [phone] Urmfmusfet 08/19/2023 11:45 AM CDT Appointment [facility] Maternal Medicine [facility] [place] [address] [place] [phone] Jair Sanchez MD [address] [address] 08/19/2023 12:15 PM CDT Office Visit [facility] M[facility] Medicine [facility] [place] [address] [place] [address] Jair Sanchez MD [address] 292794 08/31/2023 2:15 PM CDT Appointment [facility] M[facility] Medicine [facility] [place] [address] [place] [phone] Jair Sanchez MD [address] [address] 08/31/2023 2:45 PM CDT Office Visit [facility] M[facility] Medicine [facility] [place] [address] [place] [address] Jair Sanchez MD [address] [address] 08/31/2023 3:00 PM CDT Office Visit [facility] Maternal Medicine [facility] [place] [address] [place] [address] Swati Hurst MD [address] [place], [place] [address] documented as of this encounter Visit Diagnoses Not on filedocumented in this encounter Care Teams Acrobatic Rigger Relationship Specialty Start Date End Date No Ref-Primary, Physician PCP - General 05/08/23 documented as of this encounter
--- OUTSIDE RECORDS SUMMARY | 2023-08-07 08:19 | XMS_ITS | Encounter Summary ---
Author Organization [place] Address [address] [place] [address] Care Team Providers Care Crm Campaign Manager Name Role Phone Unavailable Primary Care Provider Unavailabl e Reason for Visit * Reason Comments Ultrasound L2-Covid + 1st trime ster Encounter Details Date Type Department Care Team (Late st Contact Info) Description 05/01/2023 PRE VISIT [facility] Maternal Medicine [facility] [address] [facility] [address] [place] [address] Keysha Garcia RN Ultrasound (L2-Covid [...] Description 08/19/2023 9:30 AM CDT Office Visit [facility] [place] [address] [place] [address] Jair Sanchez MD [address] [facility] [address] [place], [place] [address] 08/19/2023 9:30 AM CDT Office Visit [facility] Chemical Processing Technician Services [facility] [place] [address] 08/19/2023 10:30 AM CDT Office Visit [facility] [place] [address] [place] [address] Jair Sanchez MD [address] [address] 08/19/2023 11:00 AM CDT Appointment [facility] [address] [place] [phone] Urmfmusfet 08/19/2023 11:45 AM CDT Appointment [facility] Maternal Medicine [facility] [address] [place] [phone] Jair Sanchez MD [address] [address] 08/19/2023 12:15 PM CDT Office Visit [facility] [place] [address] [place] [address] Jair Sanchez MD [address] [address]27[address] 08/31/2023 2:15 PM CDT Appointment [facility] [place] [address] [place] [phone] Jair Sanchez MD [address] [address] 08/31/2023 2:45 PM CDT Office Visit [facility] [place] [address] [place] [address] Jair Sanchez MD [address] [address]86[address] 08/31/2023 3:00 PM CDT Office Visit [facility] [place] [address] [place], [place] [address] Swati Hurst MD [address] [place] [address] [place] [address] documented as of this encounter Visit Diagnoses Not on filedocumented in this encounter
== END 2023-08-07 08:16 | disposition home or self-care (01) ==
PROVIDERS: Visit Provider Obstetrics & Gynecology
DX: O35.BXX0 Maternal care for other (suspected) fetal abnormality and damage, fetal cardiac anomalies, not applicable or unspecified (principal)
CPT/HCPCS: 76819

== ENCOUNTER 2023-08-13 13:59 | Outpatient (CLI) | payer MEDICAID, SELFPAY ==
--- NOTE | 2023-08-13 14:00 | CRLHL7_ITS ---
For Patients: As a result of the Century Cures Act, medical imaging exams and procedure reports are released immediately into your electronic medical record. You may view this report before your referring provider. If you have questions, please contact your health care provider. INDICATION: Congenital heart defect TECHNIQUE: Limited transabdominal two-dimensional bolden-scale ultrasound examination. COMPARISON: 08/07/2023 FINDINGS: There is a living fetus in cephalic lie with gestational age of 32 weeks 6 days and EDC of 10/02/2023. The biophysical profile score is 8/8 with component scores of 2 for breathing movements, 2 for gross body movements, 2 for tone and 2 for amniotic fluid/SDP. The heart rate is measured at 152 beats per minute and the rhythm appears regular. The amniotic fluid volume is within normal limits with single deepest pocket of 5.4 cm. IMPRESSION: 1. Living fetus in cephalic lie with gestational age of 32 weeks 6 days and EDC of 10/02/2023. 2. Biophysical profile score is 8/8. Dictated by Alex Zaidi MD @ 08/15/2023 8:38:55 AM (Electronically Signed)
--- OUTSIDE RECORDS SUMMARY | 2023-08-13 14:02 | XMS_ITS | Encounter Summary ---
Author Organization [place] Address [address] [facility] [place] [address] Care Team Providers Care Design Engineer Agricultural Equipment Name Role Phone No Ref-Primary, Physician Primary Care Provider Reason for Visit * Reason Comments Ultrasound L2- CHD Encounter Details Date Type Department Care Team (Late st Contact Info) Description 07/31/2023 2:45 PM CDT Office Visit [facility] [place] [address] [facility] [address] [place] [address] Jair Sanchez MD [address] [place] [address] [place] [address] complicated by congenital heart disease, [...] for details of today's US at the [facility]. Jair Sanchez MD Maternal- Medicine documented in [...] [facility] [place] [address] [place], [place] [address] Jair Sanchez MD [address] [phone] Sue Sahni CNM [address] [facility] [address] [phone] 08/19/2023 9:30 AM CDT Office Visit [facility] [employer] [address] [place] [phone] 08/19/2023 10:30 AM CDT Office Visit [facility] [place] [address] [place], [place] [phone] Jair Sanchez MD [address] [address]69[address] Sue Sahni CNM [address] [facility] [address] [address] 08/19/2023 11:00 AM CDT Hospital En[facility] [address] [place] [phone] Sue Sahni CNM [address] [facility] [address] [address] Urmfmusfet 08/19/2023 11:45 AM CDT Appointment [facility] [place] [address] [place] [phone] Jair Sanchez MD [address] [place] [address] [place], [place] [address] [phone] Sue Sahni CN [address] [place] [address] [place] [address] 08/19/2023 12:15 PM CDT Office Visit [facility] Maternal Medicine [facility] [address] [place], [place] [address] Jair Sanchez MD [address] [place] [address] [place] [address] Sue Sahni CN [address] [place] [address] [place], [place] [address] 08/31/2023 2:15 PM CDT Appointment [facility] [place] [address] [place] [phone] Jair Sanchez MD [address] [place] [address] [place], [place] [address] 08/31/2023 2:45 PM CDT Office Visit [facility] [place] [address] [place], [place] [address] Jair Sanchez MD [address] [place] [address] [place] [phone] 08/31/2023 3:00 PM CDT Office Visit [facility] [place] [address] [place] [address] Swati Hurst MD [address] [place] [address] [place], [place] [phone] documented as of this encounter Visit Diagnoses Diagnosis complicated by congenital heart disease, single or unspecified fetus- Primary documented in this encounter Care Teams Design Engineer Agricultural Equipment Relationship Specialty Start Date End Date No Ref-Primary, Physician PCP - General 05/08/23 documented as of this encounter
--- OUTSIDE RECORDS SUMMARY | 2023-08-13 14:02 | XMS_ITS | Encounter Summary ---
Author Organization [place] Address [address] [facility] [place] [address] Care Team Providers Care Equipment Validation Specialist Name Role Phone No Ref-Primary, Physician Primary Care Provider Reason for Referral * Diagnostic Imaging Ultrasound (Routine) - Pending Review Specialty Diagnoses / Procedures Referred By Contac t Referred To Contact Radiology. Diagnoses Congenital heart defect Procedures [facility] Comprehensive Single F/U Swati Hurst MD [address] [place], [place] [address] Referral ID Status Reason Start Date Expiration Date V isits Requested Visits Authorized [id number] Pending Review 06/29/2023 06/28/2024 1 1 Reason for Visit * Diagnostic Imaging Ultrasound (Routine) - Pending Review Specialty Diagnoses / Procedures Referred By Contac t Referred To Contact Radiology. Diagnoses Congenital heart defect Procedures [facility] Comprehensive Single F/U Swati Hurst MD [address] [place], [place] [address] [address] [address] Referral ID Status Reason Start Date Expiration Date V isits Requested Visits Authorized [id number] Pending Review 06/29/2023 06/28/2024 1 1 Encounter Details Date Type Department Care Team (Latest Contact Info) Description 07/31/2023 2:08 PM CDT - 07/31/2023 11:59 PM CDT Hospital Encounter [facility] [place] [address] [facility] [address] [place] [phone] Jair Sanchez MD [address] [place] [address] [place], [place] [address] Congenital heart defect Discharge Disposition: Home or [...] Description 08/19/2023 9:30 AM CDT Office Visit [facility] [place] [address] [place] [address] Jair Sanchez MD [address] [address] Sue Sahni CNM [address] [place] [address] [place] [address] 08/19/2023 9:30 AM CDT Office Visit [facility] [address] [place] [phone] 08/19/2023 10:30 AM CDT Office Visit [facility] Maternal Medicine [facility] [address] [place] [address] Jair Sanchez MD [address] [place] [address] [place], [place] [address] Sue Sahni CNM [address] [place] [address] [place] [address] 08/19/2023 11:00 AM CDT Hospital Encounter [facility] [address] [place] [phone] Sue Sahni CN [address] [place] [address] [place], [place] [address] Urmfmusfet 08/19/2023 11:45 AM CDT Appointment [facility] Maternal Medicine [facility] [address] [place] [phone] Jair Sanchez MD [address] [place] [address] [place], [place] [address] Sue Sahni CN [address] [address] 08/19/2023 12:15 PM CDT Office Visit [facility] [address] [place], [place] [address] Jair Sanchez MD [address] [place] [address] [place], [place] [address] Sue Sahni CN [address] [id number] 08/31/2023 2:15 PM CDT Appointment [facility] [place] [address] [place] [phone] Jair Sanchez MD [address] [place] [address] [place], [place] [address] 08/31/2023 2:45 PM CDT Office Visit [facility] [place] [address] [place], [place] [address] Jair Sanchez MD [address] [place] [address] [place], [place] [address] 08/31/2023 3:00 PM CDT Office Visit [facility] Medicine [facility] [place] [address] [place], [place] [phone] Swati Hurst MD [address] [place] [address] [place] [address] documented as of this encounter Procedures Procedure Name Priority Date/Time Associated Diagnosis Comments [facility] US COMPREHENSIVE SINGLE F/U Routine 07/31/2023 2:45 PM CDT Congenital heart defect documented in this encounter Results * [facility] US Comprehensive Single F/U (07/31/2023 2:45 PM [...] ?Comp Follow Up ----- Pat. Name: GRZEGORZ ARTHURS RA ? Study Date: ??07/31/2023 2:19pm Pat. NO: ??[id number] ?Referring ??MD: FRANCIA GILMAN Site: ??[place] ? Public Relations Writer: Justyna Calixto RDMS : ??2000 ?Age: ?? [...] Biometry: BPD ?80.2 ?mm ? 32w 1d ?Mecca BAUM ?98.4 ?mm ? 29w 1d ?Nicolaides HC ?284.4 ?mm ?31w 2d ?Hadlock Cerebellum tr ?38.5 ? mm ?32w 5d ?Nicolaides AC ?271.1 ?mm ?31w 1d ?53% ?Hadlock Femur ?57.2 ? mm ?30w 0d ?Hadlock Weight Calculation: EFW ? 1,661 ?g ? 35% ?Hadlock EFW (lb,oz) ? 3 lb 11 ? oz EFW by ?Hadlock ([id number]) Head / Face / Neck Biometry: Cartographic Drafter ? 4.0 ? mm CM ?5.2 ? mm ANATOMY ----- The following structures appear abnormal: Heart / Thorax ?4-chamber view: See Echo report by [facility] from 05/20/2023. LVOT view. 3-vessel view. 5-oejftc-czvqslt view. The following structures appear normal: Head [...] We will plan to reassess growth at [facility] in 4 weeks. Return to primary [...] 07/31/2023 Comp Follow Up ----- Pat. Name: AR NARAYAN Study Date: 07/31/2023 2:19pm Pat. NO: [id number] Referring MD: FRANCIA GILMAN Site: [facility] Public Relations Writer: Justyna Calixto RDMS : 2000 Age: 22 [...] assessment (on 02/16/2023) 31 w + 0 d7/ GENERAL EVALUATION ----- Cardiac activity present. FHR [...] 3 lb 11 oz EFW by Hadlock ([id number]) Head / Face / Neck Biometry: Cartographic Drafter 4.0 mm CM 5.2 mm ANATOMY ----- The following structures appear abnormal: Heart / Thorax 4-chamber view: See Echo reportby [facility] from 05/20/2023. LVOT view. 3-vessel view.9-oqhbkw-ramspik view. The following structures appear normal: Head [...] volume appeared normal. Swati Hurst MD [facility] US ORDERABLE S documented in this encounter Visit Diagnoses Diagnosis Congenital heart defect Unspecified congenital anomaly of heart documented in this encounter Care Teams Equipment Validation Specialist Relationship Specialty Start Date End Date No Ref-Primary, Physician PCP - General 05/08/23 documented as of this encounter
--- OUTSIDE RECORDS SUMMARY | 2023-08-13 14:02 | XMS_ITS | Encounter Summary ---
Author Organization [place] Address [address] [place] [address]. [place] [address] Care Team Providers Care Hide Puller Name Role Phone No Ref-Primary, Physician Primary Care Provider Encounter Details Date Type Department Care Team (Late st Contact Info) Description 07/14/2023 Office Visit [facility] Heart Care [address] [place] [phone] Carlos Alberto Ott MD [address] [place] [phone] cardiac disease affecting , single or unspecified [...] Ott MD - 07/14/2023 10:20 AM CDT [facility] Center Consult Note Patient: Rosemary Osborne Date of : 2000 Age: [age] year old Date of Visit: 07/14/2023 PCP: No Ref-Primary, Physician Dear Doctor, I had the pleasure of seeing Rosemary Osborne at the [facility] on 07/14/2023 infetal cardiology consultation for echocardiogram [...] reviewed the echo findings today with Rosemary Osobrne and her partner. farmer cash grain was denied by patient. I discussed the cardiac anatomy, function,physiology, and plans for intervention following delivery. Based on today's echocardiogram, this will likely be a 2-ventricular repair with an arch repair. The left ventricle appears apex forming andmildly small due to the dilatation of the right ventricle in setting of a coarctation of the aorta.I recommended delivery at [facility], with plans for post- echocardiogram [...] care. I spent approximately 50 minutes in gzph-km-jvpe time reviewing the above considerations. Carlos Alberto Ott M.D. Pediatric Cardiology [facility]'[address], 5th floor, [place] [address] documented in this encounter Plan of Treatment Upcoming Encounters Date Type Department Care Team (Late st Contact Info) Description 08/19/2023 9:30 AM CDT Office Visit [facility] [place] [address] [place], [place] [address] Jair Sanchez MD [address] [address] Sue Sahni CNM [address] [phone] 08/19/2023 9:30 AM CDT Office Visit [facility] Labor Contract Analyst Services [address] [place] [phone] 08/19/2023 10:30 AM CDT Office Visit [facility] Maternal Medicine [employer] [address] [place], [place] [address] Jair Sanchez MD [address] [address] Sue Sahni CNM [address] [facility] [address] [id number] 08/19/2023 11:00 AM CDT Hospital Encounter [facility] Heart Care [address] [place] [phone] [address]M [address] [facility] [facility] [address] [address] Urmfmusfet 08/19/2023 11:45 AM CDT Appointment [facility] Maternal Medicine [employer] [address] [place] [address] Jiar Sanchez MD [address] 975[address] Sue Sahni CN [address] [address] 08/19/2023 12:15 PM CDT Office Visit [facility] Maternal Medicine [employer] [address] [place], [place] [address] Jair Sanchez MD [address] [address] Sue Sahni [facility] [address] [address] 08/31/2023 2:15 PM CDT Appointment [facility] Maternal Medicine [employer] [address] [place] [phone] Jair Sanchez MD [address] [address] 08/31/2023 2:45 PM CDT Office Visit [facility] Maternal Medicine [employer] [address] [place], [place] [address] Jair Sanchez MD [address] [address] 08/31/2023 3:00 PM CDT Office Visit [facility] Maternal Medicine [employer] [address] [place], [place] [address] Swati Hurst MD [address] [address] documented as of this encounter Visit Diagnoses Diagnosis cardiac disease affecting , single or unspecified fetus- Primary documented in this encounter Care Teams Hide Puller Relationship Specialty Start Date End Date No Ref-Primary, Physician PCP - General 05/08/23 documented as of this encounter
--- OUTSIDE RECORDS SUMMARY | 2023-08-13 14:02 | XMS_ITS | Encounter Summary ---
Author Organization [place] Address [address] [facility] [place] [address] Care Team Providers Care Senior Hydrogeologist Name Role Phone No Ref-Primary, Physician Primary Care Provider Reason for Referral * Diagnostic Imaging Ultrasound (Routine) - Pending Review Specialty Diagnoses / Procedures Referred By Contac t Referred To Contact Radiology. Diagnoses related condition, antepartum Procedures [facility] US Comprehensive Single F/U Jair Sanchez MD [address] [facility] [address] [place] [address] Referral ID Status Reason Start Date Expiration Date V isits Requested Visits Authorized [id number] Pending Review 08/03/2023 08/02/2024 1 1 Encounter Details Date Type Department Care Team (Late st Contact Info) Description 08/03/[address] [facility] Maternal Medicine [facility] [place] [address] [place] [address] Shaunna Nolasco RN related condition, antepartum (Primary [...] 08/19/2023 9:30 AM CDT Office Visit [facility] [place] [address] [place] [address] Jair Sanchez MD [address] [address] Sue Sahni CNM [address] [address] 08/19/2023 9:30 AM CDT Office Visit [facility] Furn[employer]er [employer] [address] [place] [phone] 08/19/2023 10:30 AM CDT Office Visit [facility] Maternal Medicine [facility] [address] [place], [place] [address] Jair Sanchez MD [address] [address] Sue Sahni CNM [address] 617044 08/19/2023 11:00 AM CDT Hospital Encounter [facility] [address] [place] [phone] Sue Sahni CN [address] [address] [email or web address] 08/19/2023 11:[address] [facility] Maternal Medicine [facility] [address] [place] [phone] Jair Sanchez MD [address] [address] Sue Sahni [facility] [address] [address] 08/19/2023 12:15 PM CDT Office Visit [facility] [place] [address] [place], [place] [address] Jair Sanchez MD [address] [address] Sue Sahni [facility] [address] 623334 08/31/2023 2:[address] [facility] [place] [address] [place] [phone] Jair Sanchez MD [address] 6088[address] 08/31/2023 2:45 PM CDT Office Visit [facility] [place] [address] [place], [place] [address] Jair Sanchez MD [address] [address]77[address] 08/31/2023 3:00 PM CDT Office Visit [facility] [place] [address] [place], [place] [address] Swati Hurst MD [address] [phone] Scheduled Orders Name Type Priority Associated Diagnoses Orde r Schedule [facility] US Comprehensive Single F/U Imaging Routine related condition, antepartum Expected: 08/28/2023 (Approximate), Expires: 08/02/2024 documented as of this encounter Visit Diagnoses Diagnosis related condition, antepartum- Primary documented in this encounter Care Teams Senior Hydrogeologist Relationship Specialty Start Date End Date No Ref-Primary, Physician PCP - General 05/08/23 documented as of this encounter
--- OUTSIDE RECORDS SUMMARY | 2023-08-13 14:02 | XMS_ITS | Referral Summary ---
Author Organization [facility] Address [address] [facility] [place] [address] Care Team Providers Care Campus Recruiter Name Role Phone No Ref-Primary, Physician Primary Care Provider Encounters Date Type Department Care Team Description 08/04/2023 Orders Only [facility] Maternal Medicine [facility] [address] [place], [place] [phone] Louise Haley GC Abnormal ultrasound (Primary Dx) 08/04/2023 Telephone [facility] Maternal Medicine [facility] [address] [place] [address] Shaunna Nolasco RN Appointment 08/04/2023 Orders Only [facility] Maternal Medicine [facility] [address] [place] [address] Shaunna Nolasco RN related condition, antepartum (Primary Dx) 08/03/2023 Telephone [facility] Maternal Medicine [facility] [address] [place] [address] Shaunna Nolasco RN Appointment 08/03/2023 Orders Only [facility] Maternal Medicine [facility] [address] [place] [address] Shaunna Nolasco RN related condition, antepartum (Primary Dx) 07/31/2023 Travel 07/31/2023 2:45 PM CDT Office Visit [facility] [address] [place] [address] Jair Sanchez MD complicated by congenital heart disease, single or unspecified fetus (Primary Dx) 07/31/2023 2:08 PM CDT - 07/31/2023 11:59 PM CDT Hospital Encounter [facility] [place] [address] [place] [address] Jair Sanchez MD Congenital heart defect Discharge Disposition: Home or Self Care 07/14/2023 Office Visit [facility] [address] [place] [phone] Carlos Alberto Ott MD cardiac disease affecting , single or unspecified fetus (Primary Dx) 07/14/2023 Travel 07/14/2023 7:45 AM CDT - 07/14/2023 11:59 PM CDT Hospital Encounter [facility] [address] [place] [phone] Yifan Aponte MD Anomaly of heart of fetus affecting , antepartum, single or unspecified fetus Discharge Disposition: Home or Self Care 07/07/2023 Orders Only [facility] [address] [place] [address] [facility] [address] [place] [phone] Yifan Aponte MD Anomaly of heart of fetus affecting , antepartum, single or unspecified fetus (Primary Dx) 06/29/2023 Travel 06/29/2023 2:45 PM CDT Office Visit [facility] [place] [address] [place] [address] Swati Hurst MD Congenital heart defect (Primary Dx) 06/29/2023 2:15 PM CDT - 06/29/2023 11:59 PM CDT Hospital Encounter [facility] [place] [address] [place] [address] Swati Hurst MD abnormality affecting management of mother, single or unspecified fetus Discharge Disposition: Home or Self Care 06/01/2023 Telephone [facility] Maternal Medicine [facility] [address] [place] [address] Kody Davey GC 06/01/2023 Travel 06/01/2023 8:30 AM CDT Office Visit [facility] [address] [place] [phone] Suresh Padron MD Burn, Martina, MD abnormality affecting management of mother, single or unspecified fetus (Primary Dx) 06/01/2023 7:52 AM CDT - 06/01/2023 11:59 PM CDT Hospital Encounter [facility] [address] [facility] [address] [place] [address] Suresh Padron MD Burn, Martina, MD complicated by congenital heart disease, single or unspecified fetus Discharge Disposition: Home or Self Care 05/21/2023 MyC Medical Advice [facility] [address] [place] [phone] Kym Little RN 05/20/2023 Office Visit [facility] [address] [place] [phone] Yifan Aponte MD Anomaly of heart of fetus affecting , antepartum, single or unspecified fetus (Primary Dx) 05/20/2023 Travel 05/20/2023 7:55 AM MANAGER TRANSPORTATION - 05/20/2023 11:59 PM MANAGER TRANSPORTATION Hospital [facility] [address] [place] [phone] Suresh Padron MD complicated by congenital heart disease, single or unspecified fetus Discharge Disposition: Home or Self Care from Last 3 Months Active Problems Patient Care Coordination No te Formatting of this note is d ifferent from the original. [facility] Care Plan: For details of imaging, genetic testing and consultations, please see the maternal medical record: Rosemary An MR#:[id number] Delivery hospital: [facility] DIAGNOSIS: DIAGNOSIS / DIAGNOSES: 1) CHD-coarcation of the aorta GENETIC (and other) TESTING: MaterniT Genome neg PERTINENT MATERNAL CONDITIONS: 1) + Chlamydia 02/16/23 CARE PLAN: 1) Ultrasounds - q 4 08/30 2) Other Imaging - echo 05/19, 07/13, 08/18 3) surveillance - weekly BPP at 32 weeks 4) Relocation - 5) care with - [place] 6) Labs - (look in media tab [...] CV Surg? DELIVERY PLAN: 1) Hospital - [facility] 2) Gestational age - term 3) Route - 4) Notifications in labor - 5) Genetics/specimen collection for baby: Needs consent for cordblood testing ([id number]) BABY PLAN: 1) Baby to go to [...] contact info: [address] [facility] [address] Partner's name: Baby's name: Estimated Date of [...] Visit [facility] [place] [address] [place], [place] [address] Jair Sanchez MD [address] [facility] [phone] Sue Sahni CNM [address] [place], [place] [address]E [address] [phone] 08/19/2023 9:30 AM CDT Office Visit [facility] [employer] [address] [place] [phone] 08/19/2023 10:30 AM CDT Office Visit [facility] [place] [address] [place], [place] [phone] Jair Sanchez MD [address] [phone] Sue Sahni CNM [address] [facility] [phone] 08/19/2023 11:00 AM CDT Hospital Encounter [facility] [address] [place] [phone] Sue Sahni CNM [address] [place], [place] [address]E S [address] [phone] [facility] 08/19/2023 11:45 AM CDT Appointment [facility] Maternal Medicine [facility] [address] [place] [phone] Jair Sanchez MD [address] [address] Sue Sahni CNM [address] [address] 08/19/2023 12:15 PM CDT Office Visit [facility] Maternal Medicine [facility] [address] [place], [place] [address] Jair Sanchez MD [address] [address] Sue Sahni CN [address] [phone] 08/31/2023 2:15 PM CDT Appointment [facility] Maternal Medicine [facility] [address] [place] [phone] Jair Sanchez MD [address] [address] 08/31/2023 2:45 PM CDT Office Visit [facility] [place] [address] [place], [place] [address] Jair Sanchez MD [address] [address] 08/31/2023 3:00 PM CDT Office Visit [facility] Maternal Medicine [facility] [address] [place], [place] [address] Swati Hurst MD [address] [facility] [address] [place] [address] Procedures Procedure Name Priority Date/Time Associated Diagnosis Comments [facility] US COMPREHENSIVE SINGLE F/U Routine 07/31/2023 2:45 PM CDT Congenital heart defect ECHO COMPLETE Routine 07/14/2023 1 0:10 AM CDT Anomaly of heart of fetus affecting , antepartum, single or unspecified fetus [facility] US COMPREHENSIVE SINGLE F/U Routine 06/29/2023 2:58 PM CDT abnormality affecting management of mother, single or unspecified fetus [facility] US COMPREHENSIVE SINGLE F/U Routine 06/01/2023 8:34 AM CDT complicated by congenital heart disease, single or unspecified fetus ECHO COMPLETE Routine 05/20/2023 9 :52 AM MANAGER TRANSPORTATION complicated by congenital heart disease, single or unspecified fetus from Last 3 Months Results * [facility] US Comprehensive Single F/U (07/31/2023 2:45 [...] CDT ?Comp Follow Up ----- Pat. Name: WILFRIDO AN ROSEMARY ? Study Date: ??07/31/2023 2:19pm Pat. NO: ??[id number] ?Referring ??MD: FRANCIA GILMAN Site: ??[facility] ? Net[employer] Admin: Justyna Calixto RDMS : ??2000 ?Age: ?? [...] lb 11 ? oz EFW by ?Hadlock (ORS-LA-LA-FL) Head / Face / Neck Biometry: Slip Operator ? 4.0 ? mm CM ?5.2 ? mm ANATOMY ----- The following structures appear abnormal: Heart / Thorax ?4-chamber view: See Echo report by [facility] from 05/20/2023. LVOT view. 3-vessel view. 0-cghpvq-hhkzttk view. The following structures appear normal: Head [...] We will plan to reassess growth at [facility] in 4 weeks. Return to primary [...] NARAYAN Study Date: 07/31/2023 2:19pm Pat. NO: [id number] Referring MD: FRANCIA GILMAN Site: [facility] Netbackup Admin: Justyna Calixto RDMS : 2000 Age: 22 [...] 3 lb 11 oz EFW by Hadlock (ASP-KE-ZV-FL) Head / Face / Neck Biometry: Slip Operator 4.0 mm CM 5.2 mm ANATOMY ----- The following structures appear abnormal: Heart / Thorax 4-chamber view: See Echo reportby [facility] from 05/20/2023. LVOT view. 3-vessel view.7-mfmkmc-xxhlvte view. The following structures appear normal: Head [...] We will plan to reassess growth at [facility] in 4weeks. Return to primary provider for [...] fluid volume appeared normal. Swati Hurst MD G [facility] US ORDERABLE S * ECHO COMPLETE (07/14/2023 10:10 AM CDT) Anatomical Region Laterality Modality Echocardiography 07/14/2023 8:18 AM CDT Narrative 07/14/2023 10:23 AM CDT [id number]^APONTE^YIFAN ? Study ID: [id number] ?[facility] ?[facility] ?[address] ?[place] [address] ? Echocardiogram Name: ROSEMARY NARAYAN Study Date: 07/14/2023 08:18 AM ? Patient Location: [facility] Gender: Female ?Patient Class: Outpatient : 2000 ? Age: 22 yrs Ordering Provider: YIFAN APONTE Referring Provider: YIFAN APONTE Performed By: Fabiola Sahni Reading Physician: Carlos [...] blood. pressure gradient. Delivery is recommended at [facility]. Cardiology consultation and echocardiogram is recommended immediately [...] to the left atrium. There is laminar qpryb-uv-iagu shunting across the foramen ovale. Atrioventricular valves: [...] Note Carlos Alberto Ott MD - 07/14/2023 [id number]^ASTON^YIFAN Study ID:[id number] [facility] [address] [address] Echocardiogram Name: ROSEMARY NARAYAN Study Date: 07/14/2023 08:18 AM Patient Location: [facility] Gender: Female Patient Class:Outpatient : 2000 Age: [...] limb blood. pressure gradient. Delivery is recommended [facility]. Cardiology consultation and echocardiogram isrecommended immediately [...] in to the left atrium. There is vewdzhbhfcgw-mh-qkyt shunting across the foramen ovale. Atrioventricular valves: [...] LES * ECHO COMPLETE (05/20/2023 9:52 AM MANAGER TRANSPORTATION) Anatomical Region Laterality Modality Echocardiography 05/20/2023 8:11 AM MANAGER TRANSPORTATION Narrative 05/20/2023 10:23 AM [facility] [id number]^ECHO ? Study ID: [id number] ?[facility] ?[facility] ?[address] ?[place] [address] ? Echocardiogram Name: ROSEMARY NARAYAN Study Date: [...] to the left atrium. There is laminar wcqxy-ln-rhly shunting across the foramen ovale. Atrioventricular valves: [...] Procedure Note Yifan Aponte MD - 05/20/2023 [id number] [facility] [id number]^NEREIDA^SURESH Study ID:[id number] [facility]'[address] [address] Echocardiogram Name: WILFRIDO AN ROSEMARY L Study Date: 05/20/2023 08:11 AM Patient Location: [facility] Gender: Female Patient Class:Outpatient : 2000 Age: [...] in to the left atrium. There is xgjnpkmabapv-ab-nfca shunting across the foramen ovale. Atrioventricular valves: [...] LES from Last 3 Months Care Teams Campus Recruiter Relationship Specialty Start Date End Date No Ref-Primary, Physician PCP - General 05/08/23
--- OUTSIDE RECORDS SUMMARY | 2023-08-13 14:02 | XMS_ITS | Encounter Summary ---
Author Organization [facility] Address [address] [place] [address] Care Team Providers Care Gold Marker Name Role Phone No Ref-Primary, Physician Primary Care Provider Reason for Referral * Consultation (Routine: Next available opening) - Pending Review Specialty Diagnoses / Procedures Referred By Contmaile t Referred To Contact Diagnoses Abnormal ultrasound Swati Hurst MD [address] [facility] [address] [place] [address] Referral ID Status Reason Start Date Expiration Date V isits Requested Visits Authorized [id number] Pending Review 08/04/2023 08/03/2024 1 1 Encounter Details Date Type Department Care Team (Late st Contact Info) Description 08/04/2023 Orders Only [facility] M[facility] Medicine [facility] [place] [address] [place] [phone] Louise Haley GC [address] [place] [address] [place], [place] [phone] Abnormal ultrasound (Primary Dx) Social History Tobacco [...] genetic counseling to be added at upcoming [facility] appointment to review recommendation with patient. Louise Haley MS, [facility] Licensed Genetic Counselor [facility] Maternal [email or web address] documented in this encounter Plan of Treatment Upcoming Encounters Date Type Department Care Team (Late st Contact Info) Description 08/19/2023 9:30 AM CDT Office Visit [facility] Maternal Medicine [facility] [address] [place] [address] Jair Sanchez MD [address] [address] Sue Sahni CNM [address] [address] 08/19/2023 9:30 AM CDT Office Visit [facility] [employer] [address] [place] [phone] 08/19/2023 10:30 AM CDT Office Visit [facility] Maternal Medicine [facility] [address] [address] Jair Sanchez MD [address] [place] [address] [place] [address] Sue Sahni CNM [address] [address] 08/19/2023 11:00 AM CDT Hospital [facility] [address] [place] [phone] Sue Sahni CNM [address] [facility] [address] [place] [address] Urmfmusfet 08/19/2023 11:45 AM CDT Appointment [facility] Maternal Medicine [facility] [address] [place] [phone] Jair Sanchez MD [address] [place] [address] [place], [place] [address] Sue Sahni CN [address] [address] 08/19/2023 12:15 PM CDT Office Visit [facility] Maternal Medicine [facility] [address] [place], [place] [address] Jair Sanchez MD [address] [address] Sue Sahni CN [address] [address] 08/31/2023 2:15 PM CDT Appointment [facility] Maternal Medicine [facility] [address] [place] [phone] Jair Sanchez MD [address] [address] 08/31/2023 2:45 PM CDT Office Visit [facility] Maternal Medicine [facility] [address] [place], [place] [address] Jair Sanchez MD [address] [place] [address] [place], [place] [address] 08/31/2023 3:00 PM CDT Office Visit [facility] [place] [address] [place], [place] [address] Swati Hurst MD [address] [place] [address] [place], [place] [phone] Scheduled Referrals Name Type Priority Associated Diagnoses Orde r Schedule [facility] Genetic Counseling Referral Routine: Next available opening Abnormal ultrasound Expected: 08/04/2023 (Approximate), Expires: 08/03/2024 documented as of this encounter Visit Diagnoses Diagnosis Abnormal ultrasound- Primary Abnormal findings on screening documented in this encounter Care Teams Gold Marker Relationship Specialty Start Date End Date No Ref-Primary, Physician PCP - General 05/08/23 documented as of this encounter
--- OUTSIDE RECORDS SUMMARY | 2023-08-13 14:02 | XMS_ITS | Clinical Summary ---
Author Organization [place] Address [address] [place] [address] Care Team Providers Care Fagot Heater Helper Name Role Phone No Ref-Primary, Physician Primary Care Provider Active Problems Patient Care Coordination No te Formatting of this note is d ifferent from the original. [facility] Care Plan: For details of imaging, genetic testing and consultations, please see the maternal medical record: Rosemary Gutierres Wilfrido Toledos MR#:[id number] Delivery hospital: [facility] DIAGNOSIS: DIAGNOSIS / DIAGNOSES: 1) CHD-coarcation of the aorta GENETIC (and other) TESTING: MaterniT Genome neg PERTINENT MATERNAL CONDITIONS: 1) + Chlamydia 02/16/23 CARE PLAN: 1) Ultrasounds - q 4 08/30 2) Other Imaging - echo 05/19, 07/13, 08/18 3) surveillance - weekly BPP at 32 weeks 4) Relocation - 5) care with [facility] 6) Labs - (look in media [...] CV Surg? DELIVERY PLAN: 1) Hospital - [facility] 2) Gestational age - term 3) Route - 4) Notifications in labor - 5) Genetics/specimen collection for baby: Needs consent for cordblood testing ([id number]) BABY PLAN: 1) Baby to go to [...] contact info: [address] [facility] [address] Partner's name: Baby's name: Estimated Date of Delivery Comme nts Yes 10/02/2023 Based on Ultraso und No additional problems on file Encounters Date Type Department Care Team Description 08/04/2023 Orders Only [facility] Maternal Medicine [facility] [address] [place] [address] Louise Haley GC Abnormal ultrasound (Primary Dx) 08/04/2023 Telephone [facility] Maternal Medicine [facility] [address] [place] [address] Shaunna Nolasco, RN Appointment 08/04/2023 Orders Only [facility] Medicine [facility] [address] [place] [address] Shaunna Nolasco RN related condition, antepartum (Primary Dx) 08/03/2023 Telephone [facility] Medicine [facility] [address] [place] [address] Shaunna Nolasco RN Appointment 08/03/2023 Orders Only [facility] Medicine [facility] [address] [place] [address] Shaunna Nolasco RN related condition, antepartum (Primary Dx) 07/31/2023 2:45 PM CDT Office Visit [facility] Maternal Medicine [facility] [address] [place] [address] Jair Sanchez MD complicated by congenital heart disease, single or unspecified fetus (Primary Dx) 07/31/2023 2:08 PM CDT - 07/31/2023 11:59 PM CDT Hospital Encounter [facility] Maternal Medicine [facility] [address] [place] [address] Jair Sanchez MD Congenital heart defect Discharge Disposition: Home or Self Care 07/31/2023 Travel 07/14/2023 7:45 AM CDT - 07/14/2023 11:59 PM CDT Hospital Encounter [facility] [address] [place] [phone] Yifan Aponte MD Anomaly of heart of fetus affecting , antepartum, single or unspecified fetus Discharge Disposition: Home or Self Care 07/14/2023 Office Visit [facility] [address] [place] [phone] Carlos Alberto Ott MD cardiac disease affecting , single or unspecified fetus (Primary Dx) 07/14/2023 Travel 07/07/2023 Orders Only [facility] [address] [place] [phone] Yifan Aponte MD Anomaly of heart of fetus affecting , antepartum, single or unspecified fetus (Primary Dx) 06/29/2023 2:45 PM CDT Office Visit [facility] Maternal Medicine [facility] [address] [place] [address] Swati Hurst MD Congenital heart defect (Primary Dx) 06/29/2023 2:15 PM CDT - 06/29/2023 11:59 PM CDT Hospital Encounter [facility] Maternal Medicine [facility] [address] [place] [address] Swati Hurst MD abnormality affecting management of mother, single or unspecified fetus Discharge Disposition: Home or Self Care 06/29/2023 Travel 06/01/2023 8:30 AM CDT Office Visit [facility] Maternal Medicine [facility] [address] [place] [address] Suresh Padron MD Burn, Martina, MD abnormality affecting management of mother, single or unspecified fetus (Primary Dx) 06/01/2023 7:52 AM CDT - 06/01/2023 11:59 PM CDT Hospital Encounter [facility] Maternal Medicine [facility] [address] [address] [place] [address] Suresh Padron MD Burn, Martina, MD complicated by congenital heart disease, single or unspecified fetus Discharge Disposition: Home or Self Care 06/01/2023 Telephone [facility] Maternal Medicine [address] [address] Kody Davey 06/01/2023 Travel 05/21/2023 MyC Medical Advice [facility] [address] [place] [phone] Kym Little RN 05/20/2023 7:55 AM JANITOR CLEANER - 05/20/2023 11:59 PM JANITOR CLEANER Hospital Encounter [facility] [address] [place] [phone] Suresh Padron MD complicated by congenital heart disease, single or unspecified fetus Discharge Disposition: Home or Self Care 05/20/2023 Office Visit [facility] [address] [place] [phone] Yifan Aponte MD Anomaly of heart of fetus affecting , antepartum, single or unspecified fetus (Primary Dx) 05/20/2023 Travel from Last 3 Months Immunizations Name Administration [...] Visit [facility] [place] [address] [place], [place] [address] Jair Sanchez MD [address] [facility] [phone] Sue Sahni CNM [address] [place], [place] [address]E [address] [phone] 08/19/2023 9:30 AM CDT Office Visit [facility] [employer] [address] [place] [phone] 08/19/2023 10:30 AM CDT Office Visit [facility] [place] [address] [place], [place] [phone] Jair Sanchze MD [address] [phone] Sue Sahni CNM [address] [facility] [address] [phone] 08/19/2023 11:00 AM CDT Hospital Encounter [facility] [address] [place] [phone] Sue Sahni CNM [address] [place], [place] [address]E [address] [phone] [facility] 08/19/2023 11:45 AM CDT Appointment [facility] Maternal Medicine [facility] [address] [place] [phone] Jair Sanchez MD [address] [address] Sue Sahni CNM [address] [address] 08/19/2023 12:15 PM CDT Office Visit [facility] Maternal [facility] [address] [place], [place] [address] Jair Sanchez MD [address] [phone] Sue Sahni CN [address] [phone] 08/31/2023 2:15 PM CDT Appointment [facility] Maternal Medicine [facility] [address] [place] [phone] Jair Sanchez MD [address] 6[address] 08/31/2023 2:45 PM CDT Office Visit [facility] [place] [address] [place], [place] [address] Jair Sanchez MD [address] [address] 08/31/2023 3:00 PM CDT Office Visit [facility] Maternal Medicine [facility] [address] [place], [place] [address] Swati Hurst MD [address] [facility] [address] [place] [address] Health Maintenance Due Date Last Done Comments [...] Procedure Name Priority Date/Time Associated Diagnosis Comments [facility] COMPREHENSIVE SINGLE F/U Routine 07/31/2023 2:45 PM CDT Congenital heart defect ECHO COMPLETE Routine 07/14/2023 1 0:10 AM CDT Anomaly of heart of fetus affecting , antepartum, single or unspecified fetus [facility] COMPREHENSIVE SINGLE F/U Routine 06/29/2023 2:58 PM CDT abnormality affecting management of mother, single or unspecified fetus [facility] US COMPREHENSIVE SINGLE F/U Routine 06/01/2023 8:34 AM CDT complicated by congenital heart disease, single or unspecified fetus ECHO COMPLETE Routine 05/20/2023 9 :52 AM JANITOR CLEANER complicated by congenital heart disease, single or unspecified fetus from Last 3 Months Results * [facility] US Comprehensive Single F/U (07/31/2023 2:45 [...] ? Study Date: ??07/31/2023 2:19pm Pat. NO: ??[id number] ?Referring ??: FRANCIA GILMAN Site: ??[facility] ? Machine Straw Hat Presser: Justyna Calixto RDMS : ??2000 ?Age: ?? [...] lb 11 ? oz EFW by ?Hadlock ([id number]-FL) Head / Face / Neck Biometry: General Partner ? 4.0 ? mm CM ?5.2 ? mm ANATOMY ----- The following structures appear abnormal: Heart / Thorax ?4-chamber view: See Echo report by [facility] from 05/20/2023. LVOT view. 3-vessel view. 5-iqidge-rxwshbg view. The following structures appear normal: Head [...] will plan to reassess growth at [facility] in 4 weeks. Return to primary [...] NARAYAN Study Date: 07/31/2023 2:19pm Pat. NO: [id number] Referring MD: FRANCIA GILMAN Site: [facility] Machine Straw Hat Presser: Justyna Calixto RDMS : 2000 Age: 22 [...] 3 lb 11 oz EFW by Hadlock ([id number]-PR-FL) Head / Face / Neck Biometry: General Partner 4.0 mm CM 5.2 mm ANATOMY ----- The following structures appear abnormal: Heart / Thorax 4-chamber view: See Echo reportby [facility] from 05/20/2023. LVOT view. 3-vessel view.3-slmbey-kzvnpwb view. The following structures appear normal: Head [...] We will plan to reassess growth at [facility] in 4weeks. Return to primary provider for [...] amniotic fluid volume appeared normal. Swati WAHL [facility] ORDERABLE S * ECHO COMPLETE (07/14/2023 10:10 AM CDT) Anatomical Region Laterality Modality Echocardiography 07/14/2023 8:18 AM CDT Narrative 07/14/2023 10:23 AM CDT [id number]^ASTON^YIFAN ? Study ID: [id number] ?[facility] ?[facility] ?[address] ?[place] [address] ? Echocardiogram Name: WILFRIDO AN, ROSEMARY Nenita Study Date: 07/14/2023 08:18 AM ? Patient Location: [facility] Gender: Female ?Patient Class: Outpatient : [...] blood. pressure gradient. Delivery is recommended at [facility]. Cardiology consultation and echocardiogram is recommended immediately [...] to the left atrium. There is laminar zagkh-ln-einf shunting across the foramen ovale. Atrioventricular valves: [...] Note Carlos Alberto Ott MD - 07/14/2023 [id number]^APONTE^YIFAN Study ID:[id number] [facility] [address] [address] Echocardiogram Name: ROSEMARY NARAYAN Study Date: 07/14/2023 08:18 AM Patient Location: [facility] Gender: Female Patient Class:Outpatient : 2000 [...] limb blood. pressure gradient. Delivery is recommended [facility]. Cardiology consultation and echocardiogram isrecommended immediately after [...] in to the left atrium. There is anonhnxrdllt-zq-vrgm shunting across the foramen ovale. Atrioventricular valves: [...] LES * ECHO COMPLETE (05/20/2023 9:52 AM JANITOR CLEANER) Anatomical Region Laterality Modality Echocardiography 05/20/2023 8:11 AM JANITOR CLEANER Narrative 05/20/2023 10:23 AM JANITOR CLEANER [id number]^NEREIDA^SURESH ? Study ID: [id number] ?[facility] ?[facility] ?[address] ?[place] [address] ? Echocardiogram Name: ROSEMARY NARAYAN Study Date: [...] to the left atrium. There is laminar dakpn-ds-jwht shunting across the foramen ovale. Atrioventricular valves: [...] Procedure Note Yifan Aponte MD - 05/20/2023 [id number]^NEREIDA^SURESH Study ID:[id number] [facility] [address] [place] [address] Echocardiogram Name: ROSEMARY NARAYAN Study Date: 05/20/2023 08:11 AM Patient Location: [facility] Gender: Female Patient Class:Outpatient : 2000 [...] in to the left atrium. There is bvefjxqklftb-ha-cizr shunting across the foramen ovale. Atrioventricular valves: [...] Physician: Yifan Aponte MD 05/20/2023 10:23 AM Suersh Padron MD CV PEDS ECHO ORDERAB LES from Last 3 Months Care Teams Fagot Heater Helper Relationship Specialty Start Date End Date No Ref-Primary, Physician PCP - General 05/08/23
--- OUTSIDE RECORDS SUMMARY | 2023-08-13 14:02 | XMS_ITS | Encounter Summary ---
Author Organization [place] Address [facility] [place] [address] Care Team Providers Care Powdered Metal Supervisor Name Role Phone No Ref-Primary, Physician Primary Care Provider Reason for Visit * Reason Onset Date Comments Appointment 08/03/2023 Encounter Details Date Type Department Care Team (Late st Contact Info) Description 08/03/2023 Telephone [facility] [place] [address] [address] Sahunna Nolasco, RN Appointment Social History Tobacco Use [...] appointments, weekly BPP, visits, and delivery at [facility]. Offered patient to move echo from 08/10 to 08/11 to coordinate a BPP and visit with MFM coordinator at [facility]. Pt will call back after checking with her spouse. Shaunna Nolasco RN documented in this encounter Plan of Treatment Upcoming Encounters Date Type Department Care Team (Late st Contact Info) Description 08/19/2023 9:30 AM CDT Office Visit [facility] [place] [address] [place], [place] [address] Jair Sanchez MD [address] [address] Sue Sahni CNM [address] [phone] 08/19/2023 9:30 AM CDT Office Visit [facility] Gastroenterologist Services [address] [place] [phone] 08/19/2023 10:30 AM CDT Office Visit [facility] Maternal Medicine [facility] [address] [place], [place] [address] Jair Sanchez MD [address] [address] Sue Sahni CNM [address] [phone] 08/19/2023 11:00 AM CDT Hospital Encounter [facility] [address] [place] [phone] Sue Sahni CNM [address] [address] Urmfmusfet 08/19/2023 11:45 AM CDT Appointment [facility] Maternal Medicine [facility] [address] [place] [phone] Jair Sanchez MD [address] [address] Sue Sahni, [facility] [address] [address] 08/19/2023 12:15 PM CDT Office Visit [facility] Maternal Medicine [facility] [address] [place] [address] Jair Sanchez MD [address] [address] Sue Sahni [facility] [address] [phone] 08/31/2023 2:15 PM CDT Appointment [facility] Maternal Medicine [facility] [address] [place] [phone] Jair Sanchez MD [address] [address] 08/31/2023 2:45 PM CDT Office Visit [facility] Maternal Medicine [facility] [address] [place], [place] [address] Jair Sanchez MD [address] [phone] 08/31/2023 3:00 PM CDT Office Visit [facility] Maternal Medicine [facility] [address] [place] [address] Swati Hurst MD [address] [phone] documented as of this encounter Visit Diagnoses Not on filedocumented in this encounter Care Teams Powdered Metal Supervisor Relationship Specialty Start Date End Date No Ref-Primary, Physician PCP - General 05/08/23 documented as of this encounter
--- OUTSIDE RECORDS SUMMARY | 2023-08-13 14:02 | XMS_ITS | Encounter Summary ---
Author Organization [place] Address [address] [facility] [place] [address] Care Team Providers Care Plastic Cablemaking Machine Operator Name Role Phone No Ref-Primary, Physician Primary Care Provider Reason for Referral * Consultation (Routine: Next available opening) - Pending Review Specialty Diagnoses / Procedures Referred By Adonis t Referred To Contact Diagnoses related condition, antepartum Jair Sanchez MD [address] [address] Referral ID Status Reason Start Date Expiration Date V isits Requested Visits Authorized [id number] Pending Review 08/04/2023 08/03/2024 2 2 Question Answer OB Visit? Yes Is this a first time OB patient? Yes NICU Consult Yes Comments OBV and NICU consult 08/18 * Diagnostic Imaging Ultrasound (Routine) - Pending Review Specialty Diagnoses / Procedures Referred By Contac t Referred To Contact Radiology. Diagnoses related condition, antepartum Procedures M BPP Single Jair Sanchez MD [address] [place] [address] Referral ID Status Reason Start Date Expiration Date V isits Requested Visits Authorized [id number] Pending Review 08/04/2023 08/03/2024 1 1 Encounter Details Date Type Department Care Team (Late st Contact Info) Description 08/04/2023 Orders Only [facility] [place] [address] [place], [place] [address] Shaunna Nolasco RN related condition, antepartum (Primary [...] Description 08/19/2023 9:30 AM CDT Office Visit [facility] [place] [address] [place], [place] [address] Jair Sanchez MD [address] [place], [place] [address] [address] [address] Sue Sahni CN [address] [address] [address] 08/19/2023 9:30 AM CDT Office Visit [facility] Metallurgical Inspector Services [address] [place] [phone] 08/19/2023 10:30 AM CDT Office Visit [facility] Maternal Medicine [facility] [address] [place], [place] [address] Jair Sanchez MD [address] [address] Sue Sahni CNM [address] [facility] [address] [address] 08/19/2023 11:00 AM CDT Hospital Encounter [facility] [address] [place] [address] [place] [phone] Sue Sahni CN [address] [address] Urmfmusfet 08/19/2023 11:45 AM CDT Appointment [facility] [place] [address] [place] [phone] Jair Sanchez MD [address] [facility] [address] [place], [place] [address] Sue Sahni CN [address] [phone] 08/19/2023 12:15 PM CDT Office Visit [facility] [place] [address] [place], [place] [address] Jair Sanchez MD [address] [address] Sue Sahni CN [address] [address] 08/31/2023 2:15 PM CDT Appointment [facility] [place] [address] [place] [phone] Jair Sanchez MD [address] [address] 08/31/2023 2:45 PM CDT Office Visit [facility] [place] [address] [place], [place] [address] Jair Sanchez MD [address] [address] 08/31/2023 3:00 PM CDT Office Visit [facility] [place] [address] [place] [address] Swati Hurst MD [address] [place], [place] [address] Scheduled Orders Name Type Priority Associated Diagnoses Orde r Schedule [facility] BPP Single Imaging Routine related condition, antepartum Expected: 08/19/2023 (Approximate), Expires: 06/03/2024 Scheduled Referrals Name Type Priority Associated Diagnoses Orde r Schedule [facility] Office Visit Referral Routine: Next available opening related condition, antepartum Weekly for 2 Occurrences starting 08/04/2023 until 08/03/2024 documented as of this encounter Visit Diagnoses Diagnosis related condition, antepartum- Primary documented in this encounter Care Teams Plastic Cablemaking Machine Operator Relationship Specialty Start Date End Date No Ref-Primary, Physician PCP - General 05/08/23 documented as of this encounter
--- OUTSIDE RECORDS SUMMARY | 2023-08-13 14:02 | XMS_ITS | Encounter Summary ---
Author Organization [place] Address [address] [facility] [place] [address] Care Team Providers Care Travel Occupational Therapist Name Role Phone No Ref-Primary, Physician Primary Care Provider Reason for Visit * Reason Onset Date Comments Appointment 08/04/2023 Encounter Details Date Type Department Care Team (Late st Contact Info) Description 08/04/2023 Telephone [facility] [place] [address] [place] [address] Shaunna Nolasco, RN Appointment Social History Tobacco [...] Phone call to Rosemary to discuss upcoming [facility] appointments and echo. Pt agreed to come to [place] for multiple appointments on 08/18. Plan: Pt will have weekly BPP starting at 32 weeks. These will be done in [place] unless patient is coming to [facility]. Serial growth q 4 weeks. Pt will come to [facility] on 08/18 for NICU consult, ob visit, echo, BPP. Will discuss delivery date and further planning at this visit. Shaunna Nolasco RN documented in this encounter Plan of Treatment Upcoming Encounters Date Type Department Care Team (Late st Contact Info) Description 08/19/2023 9:30 AM CDT Office Visit [facility] Maternal Medicine [facility] [address] [place], [place] [address] Jair Sanchez MD [address] [address] Sue Sahni CNM [address] 796344 08/19/2023 9:30 AM CDT Office Visit [facility] Machine [employer] [address] [place] [phone] 08/19/2023 10:30 AM CDT Office Visit [facility] Maternal Medicine [facility] [address] [place], [place] [address] Jair Sanchez MD [address] 7[address] Sue Sahni CNM [address] 813364 08/19/2023 11:00 AM CDT Hospital Encounter [facility] [address] [place] [phone] Sue Sahni CNM [address] [address] Urmfmusfet 08/19/2023 11:45 AM CDT Appointment [facility] Maternal Medicine [facility] [address] [place] [address] Jair Sanchez MD [address] [address] Sue Sahni CNM [address] [address] 08/19/2023 12:15 PM CDT Office Visit [facility] Maternal Medicine [facility] [address] [place] [address] Jair Sanchez MD [address] 311454 Sue Sahni CNM [address] [address] 08/31/2023 2:15 PM CDT Appointment [facility] Maternal Medicine [facility] [address] [place] [phone] Jair Sanchez MD [address] 076484 08/31/2023 2:45 PM CDT Office Visit [facility] Maternal Medicine [facility] [address] [place], [place] 66[address] Jair Sanchez MD [address] [id number] 08/31/2023 3:00 PM CDT Office Visit [facility] Maternal Medicine [facility] [address] [place], [place] 7[address] Swati Hurst MD [address] 122354 documented as of this encounter Visit Diagnoses Not on filedocumented in this encounter Care Teams Travel Occupational Therapist Relationship Specialty Start Date End Date No Ref-Primary, Physician PCP - General 05/08/23 documented as of this encounter
--- OUTSIDE RECORDS SUMMARY | 2023-08-13 14:02 | XMS_ITS | Encounter Summary ---
Author Organization [place] Address [facility] [place] [address] Care Team Providers Care Coordinator Cardiopulmonary Services Name Role Phone No Ref-Primary, Physician Primary [...] [facility] Maternal Medicine [facility] [address] [place], [place] [address] Jair Sanchez MD [address] 466554 Sue Sahni CNM [address] [facility] 400 [place], [place] [address] 08/19/2023 9:30 AM CDT Office Visit [facility] Heading Repairer Services [facility] [place] [address] 08/19/2023 10:30 AM CDT Office Visit [facility] Maternal Medicine [facility] [place] [address] [place] [address] Jair Sanchez MD [address] [place] [address] [place], [place] 0[address] Sue Sahni CN [address] [place] [address] [place] [address] 08/19/2023 11:00 AM CDT Hospital Encounter [facility] [address] [place] [phone] Sue Sahni CN [address] [address] [email or web address] 08/19/2023 11:45 AM CDT Appointment [facility] [place] [address] [place] [phone] Jair Sanchez MD [address] [place] [address] [place] [address] 150264 Sue Sahni CNM [address] [place] [address] [place] [address] 08/19/2023 12:15 PM CDT Office Visit [facility] M[facility] Medicine [facility] [place] [address] [place] [address] Jair Sanchez MD [address] [place] [address] [place] [address] [phone] Sue Sahni CNM [address] [place] [address] [place] [address] 08/31/2023 2:15 PM CDT Appointment [facility] Maternal Medicine [facility] [address] [place] [address] Jair Sanchez MD [address] 127244 08/31/2023 2:45 PM CDT Office Visit [facility] Maternal Medicine [facility] [address] [place] [address] Jair Sanchez MD [address] 726024 08/31/2023 3:00 PM CDT Office Visit [facility] Maternal Medicine [facility] [address] [place], [place] [address] Swati Hurst MD [address] 167244 documented as of this encounter Visit Diagnoses Not on filedocumented in this encounter Care Teams Coordinator Cardiopulmonary Services Relationship Specialty Start Date End Date No Ref-Primary, Physician PCP - General 05/08/23 documented as of this encounter
--- OUTSIDE RECORDS SUMMARY | 2023-08-13 14:02 | XMS_ITS | Encounter Summary ---
Author Organization [place] Address Critical access hospital0 [facility] [place] [address] Care Team Providers Care Fence Post Driver Name Role Phone No Ref-Primary, Physician Primary [...] Description 08/19/2023 9:30 AM CDT Office Visit [facility] Maternal Medicine [facility] [address] [place], [place] [address] Jair Sanchez MD [address] [address] Sue Sahni CNM [address] [facility] 400 [place], [place] [address] 08/19/2023 9:30 AM CDT Office Visit [facility] Lunchroom Food Service Supervisor Services Critical access hospital0 [place] [address] 08/19/2023 10:30 AM CDT Office Visit [facility] Maternal Medicine [facility] [place] [address] [place] [address] Jair Sanchez MD [address] [place] [address] [place], [place] [address] Sue Sahni CN [address] [place] [address] [place] [address] 08/19/2023 11:00 AM CDT Hospital Encounter [facility] Heart Care [address] [place] [phone] Sue Sahni CN [address] [address] [email or web address] 08/19/2023 11:45 AM CDT Appointment [facility] Maternal Medicine [facility] [place] [address] [place] [phone] Jair Sanchez MD [address] [place] [address] [place] [address] 890854 Sue Sahni CNM [address] [place] [address] [place] [address] 08/19/2023 12:15 PM CDT Office Visit [facility] M[facility] Medicine [facility] [place] [address] [address] Jair Sanchez MD [address] [place] [address] [place] [address] 418684 Sue Sahni CNM [address] [place] [address] [place] [address] 08/31/2023 2:15 PM CDT Appointment [facility] Maternal Medicine [facility] [address] [place] [address] Jair Sanchez MD [address] 314624 08/31/2023 2:45 PM CDT Office Visit [facility] Maternal Medicine [facility] [address] [address] Jair Sanchez MD [address] 242024 08/31/2023 3:00 PM CDT Office Visit [facility] Maternal Medicine [facility] [address] [place], [place] [address] Swati Hurst MD [address] 787264 documented as of this encounter Visit Diagnoses Not on filedocumented in this encounter Care Teams Fence Post Driver Relationship Specialty Start Date End Date No Ref-Primary, Physician PCP - General 05/08/23 documented as of this encounter
--- OUTSIDE RECORDS SUMMARY | 2023-08-13 14:03 | XMS_ITS | Encounter Summary ---
Author Organization [place] Address [address] [place] [address]. [place] [address] Care Team Providers Care Director Summer Sessions Name Role Phone No Ref-Primary, Physician Primary Care Provider Encounter Details Date Type Department Care Team (Late st Contact Info) Description 05/08/2023 Medical Correspondence [facility] Info Mgmt Srvcs [address] [place] [phone] Scan, Non-Provider Social History Tobacco Use [...] Description 08/19/2023 9:30 AM CDT Office Visit [facility] Maternal Medicine Center [place] [address] [place], [place] [address] Jair Sanchez MD [address] [facility] 400 [place], [place] [address] Sue Sahni CNM [address] [place] [address] [place], [place] [address] 08/19/2023 9:30 AM CDT Office Visit [facility] Educational Technology Coordinator Services [address] [place] [phone] 08/19/2023 10:30 AM CDT Office Visit [facility] Maternal Medicine [facility] [place] [address] [place], [place] 79[address] Jair Sanchez MD [address] [facility] [address] [place], [place] 9785[address] Sue Sahni CNM [address] [place] [address] [place] [address] 304914 08/19/2023 11:00 AM CDT Hospital Encounter [facility] [address] [place] [phone] Sue Sahni CNM [address] 954384 Urmfmusfet 08/19/2023 11:45 AM CDT Appointment [facility] Maternal Medicine [facility] [place] [address] [place] [phone] Jair Sanchez MD [address] 696834 Sue Sahni CNM [address] 767484 08/19/2023 12:15 PM CDT Office Visit [facility] Maternal Medicine [facility] [place] [address] [place], [place] [address] Jair Sanchez MD [address] 045174 Sue Sahni CNM [address] [address] 08/31/2023 2:15 PM CDT Appointment [facility] Maternal Medicine [facility] [address] [place] [address] Jair Sanchez MD [address] [place] [address] [place] [address] 08/31/2023 2:45 PM CDT Office Visit [facility] Maternal Medicine [facility] [address] [place] [address] Jair Sanchez MD [address] [address] 08/31/2023 3:00 PM CDT Office Visit [facility] Maternal Medicine [facility] [address] [place] [address] Sawti Hurst MD [address] [place] [address] [place], [place] [address]464 documented as of this encounter Visit Diagnoses Not on filedocumented in this encounter Care Teams Director Summer Sessions Relationship Specialty Start Date End Date No Ref-Primary, Physician PCP - General 05/08/23 documented as of this encounter
--- OUTSIDE RECORDS SUMMARY | 2023-08-13 14:03 | XMS_ITS | Encounter Summary ---
Author Organization [place] Address [facility] [place] [address] Care Team Providers Care Drive Shaft And Steering Post Repairer Name Role Phone No Ref-Primary, Physician Primary [...] Description 08/19/2023 9:30 AM CDT Office Visit [facility] Maternal Medicine [facility] [address] [place], [place] [address] Jair Sanchez MD [address] 655294 Sue Sahni CNM [address] [facility] 400 [place], [place] [address] 08/19/2023 9:30 AM CDT Office Visit [facility] Business Banking Sales Assistant Services [facility] [place] [address] 08/19/2023 10:30 AM CDT Office Visit [facility] Maternal Medicine Center [place] [address] [place] [address] Jair Sanchez MD [address] [place] [address] [place], [place] 6[address] Sue Sahni CN [address] [place] [address] [place] [address] 08/19/2023 11:00 AM CDT Hospital Encounter [facility] Heart Care [address] [place] [phone] Sue Sahni CN [address] [address] [email or web address] 08/19/2023 11:45 AM CDT Appointment [facility] Maternal Medicine [facility] [place] [address] [place] [phone] Jair Sanchez MD [address] [place] [address] [place] [address] 734304 Sue Sahni CNM [address] [place] [address] [place] [address] 08/19/2023 12:15 PM CDT Office Visit [facility] Maternal Medicine [facility] [place] [address] [place] [address] Jair Sanchez MD [address] [place] [address] [place] [address] [phone] Sue Sahni CNM [address] [place] [address] [place] [address] 08/31/2023 2:15 PM CDT Appointment [facility] Maternal Medicine [facility] [address] [place] [address] Jair Sanchez MD [address] 616484 08/31/2023 2:45 PM CDT Office Visit [facility] Maternal Medicine [facility] [address] [place] [address] Jair Sanchez MD [address] 905864 08/31/2023 3:00 PM CDT Office Visit [facility] Maternal Medicine [facility] [address] [place], [place] [address] Swati Hurst MD [address] 045014 documented as of this encounter Visit Diagnoses Not on filedocumented in this encounter Care Teams Drive Shaft And Steering Post Repairer Relationship Specialty Start Date End Date No Ref-Primary, Physician PCP - General 05/08/23 documented as of this encounter
--- OUTSIDE RECORDS SUMMARY | 2023-08-13 14:03 | XMS_ITS | Encounter Summary ---
Author Organization [place] Address [facility]0 [place] [address] Care Team Providers Care Diamond Sizer And Sorter Name Role Phone No Ref-Primary, Physician Primary Care Provider Reason for Referral * (Routine) - Closed Specialty Diagnoses / Procedures Referred By Contac t Referred To Contact Cardiology Diagnoses Maternal care for other (suspected) abnormality and damage, cardiac anomalies, fetus 1 Procedures Echo (TTE) Complete Suresh Guzman MD [address] [address] [facility] [address] [place] [phone] Referral ID Status Reason Start Date Expiration Date Visits Re quested Visits Authorized [id number] Closed 05/08/2023 05/07/2024 1 1 ICATION SECURITY CONSULTANT Reason for Visit * (Routine) - Closed Specialty Diagnoses / Procedures Referred By Contac t Referred To Contact Cardiology Diagnoses Maternal care for other (suspected) abnormality and damage, cardiac anomalies, fetus 1 Procedures Echo (TTE) Suresh Munson MD [address] [address] [facility] [address] [place] [phone] Referral ID Status Reason Start Date Expiration Date Visits Re quested Visits Authorized [id number] Closed 05/08/2023 05/07/2024 1 1 Encounter Details Date Type Department Care Team (Latest Contact Info) Description 05/20/2023 7:55 AM APPLICATION SECURITY CONSULTANT - 05/20/2023 11:59 PM APPLICATION SECURITY CONSULTANT Hospital Encounter [facility] [address] [place] [phone] Suresh Guzman MD [address] [place] [address] [phone] complicated by congenital heart disease, single or [...] [facility] [place] [address] [place], [place] [address] Jair Sanchez MD [address] 875[address] Sue Sahni CN [address] 926584 08/19/2023 9:30 AM CDT Office Visit [facility] Portfolio Management Marketing Services [address] [place] [phone] 08/19/2023 10:30 AM CDT Office Visit [facility] Maternal Medicine [facility] [address] [place], [place] 489[address] Jair Sanchez MD [address] [address] Sue Sahni CNM [address] [facility] 400 [place], [place] [address] 08/19/2023 11:00 AM CDT Hospital Encounter [facility] Heart Care [address] [place] [phone] Sue Sahni CN [address] 656994 Urmfmusfet 08/19/2023 11:45 AM CDT Appointment [facility] Maternal Medicine [facility] [address] [place] [phone] Jair Sanchez MD [address] 969434 Sue Sahni CN [address] 781634 08/19/2023 12:15 PM CDT Office Visit [facility] Maternal Medicine Center [place] [address] [place], [place] [address] Jair Sanchez MD [address] 035584 Sue Sahni CN [address] 406534 08/31/2023 2:15 PM CDT Appointment [facility] Maternal Medicine Center [place] [address] [place] [phone] Jair Sanchez MD [address] 290844 08/31/2023 2:45 PM CDT Office Visit [facility] Maternal Medicine Center [place] [address] [place], [place] [address] Jair Sanchez MD [address] [place] [address] [place], [place] [address] 08/31/2023 3:00 PM CDT Office Visit [facility] Maternal Medicine [facility] [address] [place], [place] [address] Swati Hurst MD [address] [place] [address] [place], [place] [address]3934 documented as of this encounter Procedures Procedure Name Priority Date/Time Associated Diagnosis Comments ECHO COMPLETE Routine 05/20/2023 9 :52 AM APPLICATION SECURITY CONSULTANT complicated by congenital heart disease, single or unspecified fetus documented in this encounter Results * ECHO COMPLETE (05/20/2023 9:52 AM APPLICATION SECURITY CONSULTANT) Anatomical Region Laterality Modality Echocardiography 05/20/2023 8:11 AM APPLICATION SECURITY CONSULTANT Narrative 05/20/2023 10:23 AM APPLICATION SECURITY CONSULTANT [id number]^NEREIDA^SURESH ? Study ID: [id number] ?[facility] ?[facility] ?[address] ?[place] [address] ? Echocardiogram Name: RA NARAYAN Study Date: [...] to the left atrium. There is laminar bnecz-cm-basg shunting across the foramen ovale. Atrioventricular valves: [...] Procedure Note Yifan Aponte MD - 05/20/2023 [id number]^NEREIDA^SURESH Study ID:[id number] [facility] [address] [place] [address] Echocardiogram Name: RA NARAYAN Study Date: 05/20/2023 08:11 AM Patient Location: [facility] Gender: Female Patient Class:Outpatient : [...] in to the left atrium. There is dernsdilfbtf-aa-zxzx shunting across the foramen ovale. Atrioventricular valves: [...] fetus documented in this encounter Care Teams Diamond Sizer And Sorter Relationship Specialty Start Date End Date No Ref-Primary, Physician PCP - General 05/08/23 documented as of this encounter
--- OUTSIDE RECORDS SUMMARY | 2023-08-13 14:03 | XMS_ITS | Encounter Summary ---
Author Organization [place] Address [address] [facility] [place] [address] Care Team Providers Care Shaping Machine Tender Name Role Phone No Ref-Primary, Physician Primary Care Provider Encounter Details Date Type Department Care Team (Late st Contact Info) Description 05/12/[address] [facility] Maternal Medicine Center [place] [address] [place], [place] [address] Kody Davey GC [address] [place] [address] [place], [place] [address] Social History Tobacco Use Types Packs/Day Years [...] Kody Davey GC - 05/12/2023 1:38 PM HVAC TECHNICIAN 05/12/2023 Received notification from [facility] that Rosemary has already completed standard NIPT through her primary OB, and that prior testing will be amended to include the expanded materniTGenome analysis instead of processing the sample collected last week with [facility]. Kody Davey MS, [facility] Licensed Genetic Counselor Pager: [phone] TECHNICIAN documented in this encounter Plan of Treatment Upcoming Encounters Date Type Department Care Team (Late st Contact Info) Description 08/19/2023 9:30 AM CDT Office Visit [facility] Maternal Medicine Center [place] [address] [place], [place] [address] Jair Sanchez MD [address] 120874 Sue Sahni CNM [address] 265334 08/19/2023 9:30 AM CDT Office Visit [facility] Environmental Studies Professor Services [address] [place] [phone] 08/19/2023 10:30 AM CDT Office Visit [facility] Maternal Medicine [facility] [address] [place], [place] [address] Jair Sanchez MD [address] [phone] Sue Sahni CNM [address] 511684 08/19/2023 11:00 AM CDT Hospital Encounter [facility] [address] [place] [phone] Sue Sahni CNM [address] [address] Urmfmusfet 08/19/2023 11:[address] [facility] Maternal Medicine [facility] [address] [place] [address] Jair Sanchez MD [address] [address] Sue Sahni CNM [address] [address] 08/19/2023 12:15 PM CDT Office Visit [facility] Maternal Medicine [facility] [address] [place] [address] Jair Sanchez MD [address] 613844 Sue Sahni CNM [address] [address] 08/31/2023 2:[address] [facility] Maternal Medicine [facility] [address] [place] [phone] Jair Sanchez MD [address] 415604 08/31/2023 2:45 PM CDT Office Visit [facility] Maternal Medicine [facility] [address] [place], [place] [address] Jair Sanchez MD [address] 933414 08/31/2023 3:00 PM CDT Office Visit [facility] Maternal Medicine [facility] [address] [place], [place] [address] Swati Hurst MD [address] 716764 documented as of this encounter Visit Diagnoses Not on filedocumented in this encounter Care Teams Shaping Machine Tender Relationship Specialty Start Date End Date No Ref-Primary, Physician PCP - General 05/08/23 documented as of this encounter
--- OUTSIDE RECORDS SUMMARY | 2023-08-13 14:03 | XMS_ITS | Encounter Summary ---
Author Organization [place] Address [facility], [facility] [place] [address] Care Team Providers Care Event Producer Name Role Phone No Ref-Primary, Physician Primary [...] 08/19/2023 9:30 AM CDT Office Visit [facility] [address] [place], [place] [address] Jair Sanchez MD [address] [phone] Sue Sahni CNM [address] [facility] [address] [place], [place] [address] 08/19/2023 9:30 AM CDT Office Visit [facility] Cash Register Mechanic [employer] [facility] [place] [address] 08/19/2023 10:30 AM CDT Office Visit [facility] [place] [address] [place] [address] Jair Sanchez MD [address] [place] [address] [place], [place] 74[address] Sue Sahni CN [address] [place] [address] [place] [address] 08/19/2023 11:00 AM CDT Hospital Encounter [facility] [address] [place] [phone] Sue Sahni CN [address] [address] Urmfmusfet 08/19/2023 11:45 AM CDT Appointment [facility] [place] [address] [place] [phone] Jair Sanchez MD [address] [place] [address] [place] [phone] Sue Sahni CNM [address] [place] [address] [place] [address] 08/19/2023 12:15 PM CDT Office Visit [facility] [place] [address] [place] [address] Jair Sanchez MD [address] [place] [address] [place] [address] 680294 Sue Sahni CNM [address] [place] [address] [place] [address] 08/31/2023 2:15 PM CDT Appointment [facility] [address] [place] [address] Jair Sanchez MD [address] [address] 08/31/2023 2:45 PM CDT Office Visit [facility] [address] [place] [address] Jair Sanchez MD [address] [phone] 08/31/2023 3:00 PM CDT Office Visit [facility] Maternal Medicine [facility] [address] [place], [place] [address] Swati Hurst MD [address] [phone] documented as of this encounter Visit Diagnoses Not on filedocumented in this encounter Care Teams Event Producer Relationship Specialty Start Date End Date No Ref-Primary, Physician PCP - General 05/08/23 documented as of this encounter
--- OUTSIDE RECORDS SUMMARY | 2023-08-13 14:03 | XMS_ITS | Encounter Summary ---
Author Organization [place] Address [address] [place] [address] Care Team Providers Care Pattern Developer Name Role Phone No Ref-Primary, Physician Primary Care Provider Reason for Referral * (Routine) - Closed Specialty Diagnoses / Procedures Referred By Contac t Referred To Contact Cardiology Diagnoses Anomaly of heart of fetus affecting , antepartum, single or unspecified fetus Procedures Echo (TTE) Complete Yifan Clancy MD [address] [place] [address] [facility] [address] [place] [phone] Referral ID Status Reason Start Date Expiration Date Visits Re quested Visits Authorized [id number] Closed 07/14/2023 07/06/2024 1 1 Reason for Visit * (Routine) - Closed Specialty Diagnoses / Procedures Referred By Contac t Referred To Contact Cardiology Diagnoses Anomaly of heart of fetus affecting , antepartum, single or unspecified fetus Procedures Echo (TTE) Yifan Gamez MD [address] [place] [address] [facility] [address] [place] [phone] Referral ID Status Reason Start Date Expiration Date Visits Re quested Visits Authorized [id number] Closed 07/14/2023 07/06/2024 1 1 Encounter Details Date Type Department Care Team (Latest Contact Info) Description 07/14/2023 7:45 AM CDT - 07/14/2023 11:59 PM CDT Hospital Encounter [facility] [address] [place] [phone] Yifan Clancy MD [address] [place] [address] [phone] Anomaly of heart of fetus affecting , [...] Office Visit [facility] [place] [address] [place], [place] 97[address] Jair Sanchez MD [address] [place] [address] [phone] Sue Sahni CNM [address] [place] [address] [phone] 08/19/2023 9:30 AM CDT [facility] [employer] [facility] [address] [place] [phone] 08/19/2023 10:30 AM CDT Office Visit [facility] [place] [address] [place], [place] 28[address] Jair Sanchez MD [address] [place], [place] [address] [address] 105084 Sue Sahni CNM [address] [place] [address] [place] [address] 08/19/2023 11:00 AM CDT Hospital Encounter [facility] [address] [place] [phone] Sue Sahni CNM [address] 8[address] Urmfmusfet 08/19/2023 11:45 AM CDT Appointment [facility] [address] [place] [phone] Jair Sanchez MD [address] 006244 Sue Sahni CN [address] 215364 08/19/2023 12:15 PM CDT Office Visit [facility] [address] [place], [place] [address] Jair Sanchez MD [address] 242544 Sue Sahni CN [address] [place] [address] [place] [address] [phone] 08/31/2023 2:15 PM CDT Appointment [facility] [address] [place] [phone] Jair Sanchez MD [address] 494[address] 08/31/2023 2:45 PM CDT Office Visit [facility] [place] [address] [place] [address] Jair Sanchez MD [address] [place] [address] [place], [place] [address] 08/31/2023 3:00 PM CDT Office Visit [facility] [place] [address] [place], [place] [address] Swati Hurst MD [address] [place] [address] [place] [address] documented as of this encounter Procedures Procedure Name Priority Date/Time Associated Diagnosis Comments ECHO COMPLETE Routine 07/14/2023 1 0:10 AM CDT Anomaly of heart of fetus affecting , antepartum, single or unspecified fetus documented in this encounter Results * ECHO COMPLETE (07/14/2023 10:10 AM CDT) Anatomical Region Laterality Modality Echocardiography 07/14/2023 8:18 AM CDT Narrative 07/14/2023 10:23 AM CDT [id number]^CLANCY^YIFAN ? Study ID: [id number] ?[facility] ?[facility] ?[address] ?[place] [address] ? Echocardiogram Name: RA NARAYAN Study Date: [...] blood. pressure gradient. Delivery is recommended at [facility]. Cardiology consultation and echocardiogram is [...] to the left atrium. There is laminar xtlbb-qv-rzho shunting across the foramen ovale. Atrioventricular valves: [...] Note Carlos Alberto Ott MD - 07/14/2023 [id number]^ASTON^YIFAN Study ID:[id number] [facility] [address] [place] [address] Echocardiogram Name: GRZEGORZ AN, RA L Study Date: 07/14/2023 08:18 AM Patient Location: [facility] Gender: Female Patient Class:Outpatient : [...] pressure gradient. Delivery is recommended [facility]. Cardiology consultation and echocardiogram isrecommended [...] in to the left atrium. There is zlsmtatphtdx-lf-kqfu shunting across the foramen ovale. Atrioventricular valves: [...] fetus documented in this encounter Care Teams Pattern Developer Relationship Specialty Start Date End Date No Ref-Primary, Physician PCP - General 05/08/23 documented as of this encounter
--- OUTSIDE RECORDS SUMMARY | 2023-08-13 14:03 | XMS_ITS | Encounter Summary ---
Author Organization [place] Address [facility] [place] [address] Care Team Providers Care Tobacco Grader Name Role Phone No Ref-Primary, Physician Primary Care Provider Reason for Referral * Diagnostic Imaging Ultrasound (Routine) - Pending Review Specialty Diagnoses / Procedures [facility] To Contact Radiology. Diagnoses Maternal care for other (suspected) abnormality and damage, cardiac anomalies, fetus 1 Procedures [facility] Comprehensive Single F/U Leyda Guzman MD [address] [place] [phone] Referral ID Status Reason Start Date Expiration Date V isits Requested Visits Authorized [id number] Pending Review 05/08/2023 05/07/2024 1 1 Reason for Visit * Diagnostic Imaging Ultrasound (Routine) - Pending Review Specialty Diagnoses / Procedures Referred By Contac t Referred To Contact Radiology. Diagnoses Maternal care for other (suspected) abnormality and damage, cardiac anomalies, fetus 1 Procedures [facility] Comprehensive Single F/U Leyda Guzman MD [address] [place] [address] [place] [address] Referral ID Status Reason Start Date Expiration Date V isits Requested Visits Authorized [id number] Pending Review 05/08/2023 05/07/2024 1 1 Encounter Details Date Type Department Care Team (Latest Contact Info) Description 06/01/2023 7:52 AM CDT - 06/01/2023 11:59 PM CDT Hospital Encounter [facility] M[facility] Medicine [facility] [address] [place] [address] Leyda Guzman MD [address] [facility] [address] [place], [place] 5074[address] Swati Hurst MD [address] [place] [address] [place], [place] [phone] complicated by congenital heart disease, single or [...] Description 08/19/2023 9:30 AM CDT Office Visit [facility] Maternal Medicine [facility] [address] [place], [place] [address] Jair Sanchez MD [address] 2285[address] Sue Sahni CNM [address] [facility] [address] [place], [place] [address]754 08/19/2023 9:30 AM CDT Office Visit [facility] Engineer [employer] [address] [place] [phone] 08/19/2023 10:30 AM CDT Office Visit [facility] [place] [address] [place], [place] [address] Jair Sanchez MD [address] [address] Sue Sahni CNM [address] 628394 08/19/2023 11:00 AM CDT Hospital Encounter [facility] Care [address] [place] [phone] Sue Sahni CNM [address] [place] [address] [place] [address]794 Urmfmusfet 08/19/2023 11:45 AM CDT Appointment [facility] [place] [address] [place] [phone] Jair Sanchez MD [address] 7736[address] Sue Sahni CNM [address] [place] [address] [place] [address] 888624 08/19/2023 12:15 PM CDT Office Visit [facility] [place] [address] [place], [place] [address] Jair Sanchez MD [address] 535174 Sue Sahni CNM [address] [place] [address] [place] [address] 08/31/2023 2:15 PM CDT Appointment [facility] [place] [address] [place] [phone] Jair Sanchez MD [address] [phone] 08/31/2023 2:45 PM CDT Office Visit [facility] [place] [address] [place] [address] Jair Sanchez MD [address] [place] [address] [place] [address] 08/31/2023 3:00 PM CDT Office Visit [facility] Maternal Medicine [facility] [address] [place] [address] Swati Hurst MD [address] [address] documented as of this encounter Procedures Procedure Name Priority Date/Time Associated Diagnosis Comments [facility] US COMPREHENSIVE SINGLE F/U Routine 06/01/2023 8:34 AM CDT complicated by congenital heart disease, single or unspecified fetus documented in this encounter Results * [facility] US Comprehensive Single F/U (06/01/2023 8:34 AM [...] ?Comp Follow Up ----- Pat. Name: GRZEGORZ ANRA ? Study Date: ??06/01/2023 7:57am Pat. NO: ??[id number] ?Referring ??MD: FRANCIA GILMAN Site: ??[facility] [employer] Executive Director: Mumtaz Ventura RDMS : ??2000 ?Age: ?? [...] 1 lb 1 ?oz EFW by ?Hadlock ([id number]) Head / Face / Neck Biometry: Manufacturing Engineer Supervisor ? 5.4 ? mm CM ?5.2 ? mm ANATOMY ----- The following structures appear abnormal: Heart / Thorax ?4-chamber view: Left side of the heart is small . LVOT view. 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 3-vessel view: small aorta. ? 1-dncpum-cdecxog view: small aorta . The following structures [...] the patient (reviewing medical records/tests), in direct lore-qc-tadx contact with the patient during her visit with the majority spent counseling and discussing the plan of care and documenting the visit in the electronic medical record. Please see note for details. Procedure Note Swati Hurst MD - 06/01/2023 Comp Follow Up ----- Pat. Name: RA NARAYAN Study Date: 06/01/2023 7:57am Pat. NO: [id number] Referring MD: FRANCIA GILMAN Site: [facility] [employer] Executive Director: Mumtaz Ventura RDMS : 2000 Age: 22 [...] 1 lb 1 oz EFW by Hadlock ([id number]) Head / Face / Neck Biometry: Manufacturing Engineer Supervisor 5.4 mm CM 5.2 mm ANATOMY ----- The following structures appear abnormal: Heart / Thorax 4-chamber view: Left side of the heartis small . LVOT view. 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 0-dtuygl-veijlza view: smallaorta . The following structures appear [...] this anatomy may be dependent on PGE. Vaness[place]as a follow up echocardiogram on 07/14/23. She [...] see the patient (reviewing medical records/tests), in pqqdjsfjmc-ml-rckx contact with the patient during her visit [...] fluid volume appeared normal. Leyda Guzman MD [facility] documented in this encounter Visit Diagnoses Diagnosis complicated by congenital heart disease, single or unspecified fetus documented in this encounter Care Teams Tobacco Grader Relationship Specialty Start Date End Date No Ref-Primary, Physician PCP - General 05/08/23 documented as of this encounter
--- OUTSIDE RECORDS SUMMARY | 2023-08-13 14:03 | XMS_ITS | Encounter Summary ---
Author Organization [place] Address [address] [facility] [place] [address] Care Team Providers Care Director Of Collections Name Role Phone No Ref-Primary, Physician Primary [...] MD [address] [place] [address] Referral ID Status Reason Start Date Expiration Date V isits Requested Visits Authorized [id number] Pending Review 05/08/2023 05/07/2024 1 1 Encounter Details Date Type Department Care Team (Late st Contact Info) Description 05/08/2023 3:00 PM FASHION EDITOR Office Visit [facility] [place] [address] [facility] [address] [place] [address] Leyda Guzman MD [address] [address] [place] [address] Kody Davey GC [address] [address] [place] [address] Abnormal ultrasound; abnormality affecting management [...] Davey GC - 05/08/2023 3:00 PM CST [facility] Medicine Center Genetic Counseling Consult Patient: Rosemary Osborne Preferred Name: Rosemary Date of : 2000 Date of Service: 05/08/23 Rosemary was seen at the [facility] Center for genetic consultation. The indication for genetic counseling is abnormal ultrasound. The patient was accompanied to this visit by their partner. The session was conducted in Polish. A line up machine operator was offered and declined. IMPRESSION/ PLAN 1. 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 2. During today's [facility] visit, Rosemary had a blood draw for non-invasive testing (also called NIPT, NIPS, or cell-free DNA), called [facility], through [employer]. This NIPT screens for genome-wide aneuploidies. The patient opted to screen for sex chromosome aneuploidies, including reported sex. Results are expected in 7-10 days. The patient will be called with results and if they do not answer they requested a detailed message with results on their voicemail. Patient was informed that results will be available in [place]. 3. Rosemary had a level II comprehensive anatomy ultrasound today. Please see the ultrasound report for further details. 5. Further recommendations include a follow up level II ultrasound and echocardiogram with [facility]. The appointment(s) has not been scheduled yet. [facility] schedulers will reach out or the patient can call [phone]. HISTORY /Parity: CURRENT Current Age: [age] year [...] deletion syndrome is available (Expanded NIPS through [employer]). We discussed the limitations of cell -free [...] options: Nuchal translucency (NT) ultrasound Ultrasound between [id number]-[id number] that includes nuchal translucency measurement and nasal [...] pleasure to be involved with Rosemary???s anayeli. Ayuu-ae-fawe time of the meeting was 15 minutes. Kody Davey, ISSA, MS, [facility] Board Certified and [place] Licensed Genetic Counselor [facility] Maternal Medicine Office: [phone] MFM: [phone] [facility] MF ION EDITOR documented in this encounter Plan of Treatment Upcoming Encounters Date Type Department Care Team (Late st Contact Info) Description 08/19/2023 9:30 AM CDT Office Visit [facility] [place] [address] [place], [place] [address] Jair Sanchez MD [address] [facility] [address] [address] Sue Sahni CNM [address] [place], [place] [address] [address] [id number] 08/19/2023 9:30 AM CDT Office Visit [facility] Content Coordinator Services [address] [place] [phone] 08/19/2023 10:30 AM CDT Office Visit [facility] Maternal Medicine [facility] [address] [place], [place] [address] Jair Sanchez MD [address] 549424 Sue Sahni CNM [address] [address] 946434 08/19/2023 11:00 AM CDT Hospital Encounter [facility] Heart Care [address] [place] [phone] Sue Sahni CNM [address] [place], [place] [address] [address] 5287[address] Urmfmusfet 08/19/2023 11:[address] [facility] [place] [address] [place] [phone] Jair Sanchez MD [address] 081718 [phone] Sue Sahni CN [address] 869841 [phone] 08/19/2023 12:15 PM CDT Office Visit [facility] Maternal Medicine [facility] [address] [place], [place] [address] [phone] Jair Sanchez MD [address] 813094 Sue Sahni CN [address] 463493 [phone] 08/31/2023 2:[address] [facility] Maternal Medicine [facility] [address] [place] [phone] Jair Sanchez MD [address] 269818 [phone] 08/31/2023 2:45 PM CDT Office Visit [facility] [place] [address] [place], [place] [address] Jair Sanchez MD [address] 313[address] 08/31/2023 3:00 PM CDT Office Visit [facility] [place] [address] [place], [place] [address] Swati Hurst MD [address] 975274 Pending Results Name Type Priority Associated Diagnoses Date /Time Other Laboratory; [facility]; [facility] NIPT (Laboratory Miscellaneous Order) Lab Routine Abnormal ultrasound abnormality affecting management of mother, single or unspecified fetus Encounter for procreative genetic counseling and testing 05/08/2023 4:55 PM FASHION EDITOR Scheduled Orders Name Type Priority Associated Diagnoses [...] testing documented in this encounter Care Teams Director Of Collections Relationship Specialty Start Date End Date No Ref-Primary, Physician PCP - General 05/08/23 documented as of this encounter
--- OUTSIDE RECORDS SUMMARY | 2023-08-13 14:03 | XMS_ITS | Encounter Summary ---
Author Organization [place] Address [address] [place] [address] Care Team Providers Care Manager Ship Name Role Phone No Ref-Primary, Physician Primary Care Provider Reason for Referral * Diagnostic Imaging Ultrasound (Routine) - Pending Review Specialty Diagnoses / Procedures Referred By Contac t Referred To Contact Radiology. Diagnoses Congenital heart defect Procedures [facility] US Comprehensive Single F/U Swati Hurst MD [address] [place] [address] Referral ID Status Reason Start Date Expiration Date V isits Requested Visits Authorized [id number] Pending Review 06/29/2023 06/28/2024 1 1 Reason for Visit * Reason Comments Ultrasound RL2-CHD Encounter Details Date Type Department Care Team (Late st Contact Info) Description 06/29/2023 2:45 PM CDT Office Visit [facility] [place] [address] [facility] [facility] [address] [place] [address] Swati Hurst MD [address] [place] [address] Congenital heart defect (Primary Dx) [...] 06/29/2023 2:45 PM CDT Patient presents to [facility] for RL2 at 26w3d due to CHD. Positive movement. Denies LOF, vaginal bleeding or cramping/contractions. SBAR given to [facility] , see their note in Epic. documented in this encounter Plan of Treatment Upcoming Encounters Date Type Department Care Team (Late st Contact Info) Description 08/19/2023 9:30 AM CDT Office Visit [facility] M[facility] [address] [place], [place] [address] Jair Sanchez MD [address] 722964 Sue Sahni CN [address] [id number] 08/19/2023 9:30 AM CDT Office Visit [facility] Respiratory Tech Services [address] [place] [phone] 08/19/2023 10:30 AM CDT Office Visit [facility] [place] [address] [place], [place] [address] Jair Sanchez MD [address] 366974 Sue Sahni CN [address] [facility] [address] [place], [place] [address] 08/19/2023 11:00 AM CDT Hospital Encounter [facility] [address] [place] [phone] Sue Sahni CN [address] [place] [address] Urmfmusfet 08/19/2023 11:45 AM CDT Appointment [facility] [address] [place] [phone] Jair Sanchez MD [address] [address] Sue Sahni CN [address] [place] [phone] 08/19/2023 12:15 PM CDT Office Visit [facility] [address] [place], [place] [address] Jair Sanchez MD [address] 558384 Sue Sahni CN [address] 695474 08/31/2023 2:15 PM CDT Appointment [facility] [address] [place] [phone] Jair Sanchez MD [address] 596854 08/31/2023 2:45 PM CDT Office Visit [facility] [place] [address] [place] [address] Jair Sanchez MD [address] [place], [place] [phone] 08/31/2023 3:00 PM CDT Office Visit [facility] [address] [place] [address] Swati Hurst MD [address] [place] [address] documented as of this encounter Results * [facility] US Comprehensive Single F/U (07/31/2023 2:45 [...] ? Study Date: ??07/31/2023 2:19pm Pat. NO: ??[id number] ?Referring ??MD: FRANCIA GILMAN Site: ??[facility] ? Product Manager E Commerce: Justyna Calixto RDMS : ??2000 ?Age: ?? [...] ?Mecca BAUM ?98.4 ?mm ? 29w 1d ?Nicocourtney ?284.4 ?mm ?31w 2d ?Hadlock Cerebellum tr ?38.5 ? mm ?32w 5d ?Nicolaides AC ?271.1 ?mm ?31w 1d ?53% ?Hadlock Femur ?57.2 ? mm ?30w 0d ?Hadlock Weight Calculation: EFW ? 1,661 ?g ? 35% ?Hadlock EFW (lb,oz) ? 3 lb 11 ? oz EFW by ?Hadlock ([id number]-SP-[id number]-FL) Head / Face / Neck Biometry: Mysql Developer ? 4.0 ? mm CM ?5.2 ? mm ANATOMY ----- The following structures appear abnormal: Heart / Thorax ?4-chamber view: See Echo report by [facility]iology from 05/20/2023. LVOT view. 3-vessel view. 4-wewqva-ghyxxrl view. The following structures appear normal: Head [...] We will plan to reassess growth at [facility] in 4 weeks. Return to primary [...] NARAYAN Study Date: 07/31/2023 2:19pm Pat. NO: [id number] Referring MD: FRANCIA GILMAN Site: [facility] Product Manager E Commerce: Justyna Calixto RDMS : 2000 Age: 22 [...] 3 lb 11 oz EFW by Hadlock (FIX-AO-GG-FL) Head / Face / Neck Biometry: Mysql Developer 4.0 mm CM 5.2 mm ANATOMY ----- The following structures appear abnormal: Heart / Thorax 4-chamber view: See Echo reportby [facility] from 05/20/2023. LVOT view. 3-vessel view.6-dahqfr-jkcjjdv view. The following structures appear normal: Head [...] fluid volume appeared normal. Swati Hurst MD [facility] US ORDERABLE S documented in this encounter Visit Diagnoses Diagnosis Congenital heart defect- Primary Unspecified congenital anomaly of heart Congenital heart defect Unspecified congenital anomaly of heart documented in this encounter Care Teams Manager Ship Relationship Specialty Start Date End Date No Ref-Primary, Physician PCP - General 05/08/23 documented as of this encounter
--- OUTSIDE RECORDS SUMMARY | 2023-08-13 14:03 | XMS_ITS | Encounter Summary ---
Author Organization [place] Address [address] [place] [address] Care Team Providers Care Patients Transporter Name Role Phone No Ref-Primary, Physician Primary Care Provider Reason for Referral * Diagnostic Imaging Ultrasound (Routine) - Pending Review Specialty Diagnoses / Procedures Referred By Contac t Referred To Contact Radiology. Diagnoses abnormality affecting management of mother, single or unspecified fetus Procedures [facility] US Comprehensive Single F/U Swati Hurst MD [address] [place] [address] Referral ID Status Reason Start Date Expiration Date V isits Requested Visits Authorized [id number] Pending Review 06/01/2023 05/31/2024 1 1 Reason for Visit * Reason Comments Ultrasound RL2- CHD Encounter Details Date Type Department Care Team (Late st Contact Info) Description 06/01/2023 8:30 AM CDT Office Visit [facility] M[facility] Medicine [facility] [place] [address] [facility] [address] [place] [address] Leyda Guzman MD [address] [place] [address] Swati Hurst MD [address] [place] [address] abnormality affecting management of mother, [...] Visit [facility] [place] [address] [place], [place] 40[address] Jair Sanchez MD [address] 832314 Sue Sahni CNM [address] 889404 08/19/2023 9:30 AM CDT Office Visit [facility] [employer] [facility] [address] [place] [phone] 08/19/2023 10:30 AM CDT Office Visit [facility] [place] [address] [place], [place] [address] Jair Sanchez MD [address] [place], [place] 67[address] Sue Sahni CNM [address] [place] [phone] 08/19/2023 11:00 AM CDT Hospital Encounter [facility] [address] [place] [phone] Sue Sahni CN [address] [address] Urmfmusfet 08/19/2023 11:45 AM CDT Appointment [facility] [place] [address] [place] [phone] Jair Sanchez MD [address] 0607[address] Sue Sahni CN [address] [address] 08/19/2023 12:15 PM CDT Office Visit [facility] [place] [address] [place], [place] [address] Jair Sanchez MD [address] 721844 Sue Sahni CN [address] 0718[address] 08/31/2023 2:15 PM CDT Appointment [facility] [place] [address] [place] [phone] Jair Sanchez MD [address] 769634 08/31/2023 2:45 PM CDT Office Visit [facility] [place] [address] [place], [place] [address] Jair Sanchez MD [address] [place] [address] 08/31/2023 3:00 PM CDT Office Visit [facility] Maternal Medicine [facility] [address] [address] Swati Hurst MD [address] [place], [place] [phone] documented as of this encounter Results * [facility] US Comprehensive Single F/U (06/29/2023 2:58 [...] ? Study Date: ??06/29/2023 2:20pm Pat. NO: ??[id number] ?Referring ??MD: FRANCIA GILMAN Site: ??[facility] ? Prize Jacker: Mumtaz Ventura RDMS : ??2000 ?Age: ?? [...] Biometry: BPD ?70.1 ?mm ? 28w 1d ?Mecca BAUM ?88.6 ?mm ? 26w 3d ?Nicolaides HC ?252.7 ?mm ?27w 3d ?Hadlock Cerebellum tr ?31.0 ? mm ?27w 0d ?Nicolaides AC ?228.7 ?mm ?27w 2d ?67% ?Hadlock Femur ?48.1 ? mm ?26w 1d ?Hadlock Weight Calculation: EFW ? 1,003 ?g ? 59% ?Hadlock EFW (lb,oz) ? 2 lb 3 ?oz EFW by ?Hadlock ([id number]) Head / Face / Neck Biometry: Coke Oven Mason ? 4.6 ? mm CM ?4.7 ? mm ANATOMY ----- The following structures appear abnormal: Heart / Thorax ?4-chamber view: left side of heart is smaller than the right. . 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 . 3-vessel view: small aorta. 5-hnoqmq-wmlmaxf view: small aorta . The following structures [...] on PGE. Plan for repeat assessment with [facility] of cardiac anatomy and growth in 4 weeks. She will likely need to delivery at [place], however, will plan to reevaluate following her [...] the patient (reviewing medical records/tests), in direct hxpg-id-nvuf contact with the patient during her visit with the majority spent counseling and discussing the plan of care and documenting the visit in the electronic medical record. Please see note for details. Procedure Note Swati Hurst MD - 07/03/2023 Comp Follow Up ----- Pat. Name: GRZEGORZ AN RA Study Date: 06/29/2023 2:20pm Pat. NO: [id number] Referring MD: FRANCIA GILMAN Site: [facility] Prize Jacker: PHUONG Espinoza: 2000 Age: 22 ----- INDICATION ----- Congenital [...] (lb,oz) 2 lb 3 oz EFW by Mecca (THE-ST-YT-FL) Head / Face / Neck Biometry: Coke Oven Mason 4.6 mm CM 4.7 mm ANATOMY ----- The following structures appear abnormal: Heart / Thorax 4-chamber view: left side of heart issmaller than the right. . LVOT view: mitral valve hypoplasia . Aortic archview: hypoplasia of aortic isthmus . 3-vessel view: small aorta.5-qbgzjz-fegveak view: small aorta . The following structures [...] known cardiac abnormality. 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 Per cardiology, this anatomy may be dependenton PGE. Plan for repeat assessment with [facility] of cardiac anatomy and growth in4 weeks. She will likely need to delivery at [place], however, will planto reevaluate following her next echocardiogram on 07/14/23. Return to primary provider for continued care. If you have questions regarding today's evaluation or if we can be [facility], please contact the M[facility] Medicine Center. anomalies may be present but not detected I spent a total of 15 minutes on the date of this encounter includingpreparing to see the patient (reviewing medical records/tests), in kxacjhtxrk-pj-uawd contact with the patient during her visit [...] volume appeared normal. Swati Hurst MD IMG [facility] US ORDERABLE S documented in this encounter Visit Diagnoses Diagnosis abnormality affecting management of mother, single or unspecified fetus- Primary abnormality affecting management of mother, single or unspecified fetus documented in this encounter Care Teams Patients Transporter Relationship Specialty Start Date End Date No Ref-Primary, Physician PCP - General 05/08/23 documented as of this encounter
--- OUTSIDE RECORDS SUMMARY | 2023-08-13 14:03 | XMS_ITS | Encounter Summary ---
Author Organization [place] Address [address] [place] [address] Care Team Providers Care Awning Frame Maker Name Role Phone No Ref-Primary, Physician Primary Care Provider Encounter Details Date Type Department Care Team ([facility] st Contact Info) Description 05/20/2023 Office Visit [facility] [address] [facility] Clinic [address] [place] [address] Yifan Aponte MD [address] [place] [address] Anomaly of heart of fetus affecting [...] Aponte MD - 05/20/2023 7:58 AM CST [facility] Consult Note Patient: Rosemary Osborne Date of : 2000 Age: [age] year old Date of Visit: 05/20/2023 PCP: No Ref-Primary, Physician Dear Doctor: I had the pleasure of seeing Rosemary Osborne at the [facility] on 05/20/2023 in cardiology consultation for [...] suspect the baby will require delivery at [facility] but this will be determined at future [...] the visit. Michi Aponte M.D. Pediatric Cardiology [facility] [address] Academic Office Building 4th [facility] [place] [address] DRAFTER documented in this encounter Plan of Treatment Upcoming Encounters Date Type Department Care Team (Late st Contact Info) Description 08/19/2023 9:30 AM CDT Office Visit [facility] [address] [place], [place] [address] Jair Sanchez MD [address] [facility] [address] [place], [place] [address] Sue Sahni CNM [address] [place], [place] [address] 08/19/2023 9:30 AM CDT Office Visit [facility] [employer] Instructor Services [address] [place] [phone] 08/19/2023 10:30 AM CDT Office Visit [facility] [address] [place], [place] [address] Jair Sanchez MD [address] [facility] [address] [place], [place] [phone] Sue Sahni CNM [address] 977[address] 08/19/2023 11:00 AM CDT Hospital Encounter [facility] [address] [place] [phone] Sue Sahni CNM [address] [address] Urmfmusfet 08/19/2023 11:45 AM CDT Appointment [facility] [address] [place] [address] Jair Sanchez MD [address] [address] Sue Sahni CNM [address] [address] 08/19/2023 12:15 PM CDT Office Visit [facility] M[facility] [place] [address] [place] [address] Jair Sanchez MD [address] 530174 Sue Sahni CNM [address] [address] 08/31/2023 2:15 PM CDT Appointment [facility] [address] [place] [address] Jair Sanchez MD [address] 839854 08/31/2023 2:45 PM CDT Office Visit [facility] [place] [address] [place] [address] Jair Sanchez MD [address] [facility] [address] 645344 08/31/2023 3:00 PM CDT Office Visit [facility] [address] [place], [place] [address] Swati Hurst MD [address] [address] documented as of this encounter Visit Diagnoses Diagnosis Anomaly of heart of fetus affecting , antepartum, single or unspecified fetus- Primary documented in this encounter Care Teams Awning Frame Maker Relationship Specialty Start Date End Date No Ref-Primary, Physician PCP - General 05/08/23 documented as of this encounter
--- OUTSIDE RECORDS SUMMARY | 2023-08-13 14:03 | XMS_ITS | Encounter Summary ---
Author Organization [place] Address [address] [facility] [place] [address] Care Team Providers Care Engineering Specialist Name Role Phone No Ref-Primary, Physician Primary Care Provider Reason for Referral * Diagnostic Imaging Ultrasound (Routine) - Pending Review Specialty Diagnoses / Procedures [facility] Ref[facility] To Contact Radiology. Diagnoses abnormality affecting management of mother, single or unspecified fetus Procedures [facility] US Comprehensive Single F/U Swati Hurst MD [address] [place] [address] Referral ID Status Reason Start Date Expiration Date V isits Requested Visits Authorized [id number] Pending Review 06/01/2023 05/31/2024 1 1 Reason for Visit * Diagnostic Imaging Ultrasound (Routine) - Pending Review Specialty Diagnoses / Procedures Referred By Contac Referred To Contact Radiology. Diagnoses abnormality affecting management of mother, single or unspecified fetus Procedures [facility] US Comprehensive Single F/U Swati Hurst MD [address] [facility] [address] [place] [address] Referral ID Status Reason Start Date Expiration Date V isits Requested Visits Authorized [id number] Pending Review 06/01/2023 05/31/2024 1 1 Encounter Details Date Type Department Care Team (Latest Contact Info) Description 06/29/2023 2:15 PM CDT - 06/29/2023 11:59 PM CDT Hospital Encounter [facility] M[facility] Medicine [facility] [place] [address] [place] [phone] Swati Hurst MD [address] [facility] [address] [place], [place] [address] abnormality affecting management of mother, single or [...] Office Visit [facility] [place] [address] [place], [place] [address] Jair Sanchez MD [address] 7800[address] Sue Sahni CNM [address] [address] 08/19/2023 9:30 AM CDT Office Visit [facility] Compensation And Benefits Advisor Services [address] [place] [phone] 08/19/2023 10:30 AM CDT Office Visit [facility] [place] [address] [place], [place] [address] Jair Sanchez MD [address] [place], [place] [address] Sue Sahni CNM [address] [facility] [address] [place] [address] 08/19/2023 11:00 AM CDT Hospital Encounter [facility] [address] [place] [phone] Sue Sahni CNM [address] 49[address] Urmfmusfet 08/19/2023 11:45 AM CDT Appointment [facility] [place] [address] [place] [phone] Jair Sanchez MD [address] 814924 Sue Sahni CN [address] 645694 08/19/2023 12:15 PM CDT Office Visit [facility] [place] [address] [place], [place] [address] Jair Sanchez MD [address] 672304 Sue Sahni CN [address] 9357[address] 08/31/2023 2:15 PM CDT Appointment [facility] [place] [address] [phone] Jair Sanchez MD [address] 212[address] 08/31/2023 2:45 PM CDT Office Visit [facility] [place] [address] [place], [place] [address] Jair Sanchez MD [address] [place], [place] [phone] 08/31/2023 3:00 PM CDT Office Visit [facility] [place] [address] [place], [place] [phone] Swati Hurst MD [address] [place], [place] [phone] documented as of this encounter Procedures Procedure Name Priority Date/Time Associated Diagnosis Comments [facility] US COMPREHENSIVE SINGLE F/U Routine 06/29/2023 2:58 PM CDT abnormality affecting management of mother, single or unspecified fetus documented in this encounter Results * [facility] US Comprehensive Single F/U (06/29/2023 2:58 [...] ? Study Date: ??06/29/2023 2:20pm Pat. NO: ??[id number] ?Referring ??MD: FRANCIA GILMAN Site: ??[facility] ? Child Protective Investigator: Mumtaz Ventura RDMS : ??2000 ?Age: ?? [...] 2 lb 3 ?oz EFW by ?Hadlock ([id number]-FL) Head / Face / Neck Biometry: Educational Audiologist ? 4.6 ? mm CM ?4.7 ? mm ANATOMY ----- The following structures appear abnormal: Heart / Thorax ?4-chamber view: left side of heart is smaller than the right. . 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 . 3-vessel view: small aorta. 4-fosgdg-znnebmp view: small aorta . The following structures [...] on PGE. Plan for repeat assessment with [facility] of cardiac anatomy and growth in 4 weeks. She will likely need to delivery at [place], however, will plan to reevaluate following her [...] the patient (reviewing medical records/tests), in direct aoem-ix-jngp contact with the patient during her visit with the majority spent counseling and discussing the plan of care and documenting the visit in the electronic medical record. Please see note for details. Procedure Note Swati Hurst MD - 07/03/2023 Comp Follow Up ----- Pat. Name: RA NARAYAN Study Date: 06/29/2023 2:20pm Pat. NO: [id number] Referring MD: FRANCIA GILMAN Site: [facility] Child Protective Investigator: Mumtaz Ventura RDMS : 2000 Age: 22 [...] 2 lb 3 oz EFW by Hadlock ([id number]-FL) Head / Face / Neck Biometry: Educational Audiologist 4.6 mm CM 4.7 mm ANATOMY ----- The following structures appear abnormal: Heart / Thorax 4-chamber view: left side of heart issmaller than the right. . LVOT view: mitral valve hypoplasia . Aortic archview: hypoplasia of aortic isthmus . 3-vessel view: small aorta.1-vcgwea-frtbnyo view: small aorta . The following structures [...] known cardiac abnormality. 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 Per cardiology, this anatomy may be dependenton PGE. Plan for repeat assessment with [facility] of cardiac anatomy and growth in4 weeks. She will likely need to delivery at [place], however, will planto reevaluate following her next echocardiogram on 07/14/23. Return to primary provider for continued care. If you have questions regarding today's evaluation or if we can be offmescalero service unither service, please contact the Maternal- Medicine Center. anomalies may be present but not detected I spent a total of 15 minutes on the date of this encounter includingpreparing to see the patient (reviewing medical records/tests), in meusppeobq-zm-mjpy contact with the patient during her visit [...] fluid volume appeared normal. Swati Hurst MD [facility] US ORDERABLE S documented in this encounter Visit Diagnoses Diagnosis abnormality affecting management of mother, single or unspecified fetus documented in this encounter Care Teams Engineering Specialist Relationship Specialty Start Date End Date No Ref-Primary, Physician PCP - General 05/08/23 documented as of this encounter
--- OUTSIDE RECORDS SUMMARY | 2023-08-13 14:03 | XMS_ITS | Encounter Summary ---
Author Organization [place] Address [address] [facility] [place] [address] Care Team Providers Care Equity Holder Name Role Phone No Ref-Primary, Physician Primary Care Provider Encounter Details Date Type Department Care Team (Late st Contact Info) Description 06/01/2023 Telephone [facility] [place] [address] [place], [place] [phone] Kody Davey [address] [place] [address] Social History Tobacco Use Types [...] as needed moving forward Kody Davey MS, [facility] Licensed Genetic Counselor Pager: [phone] documented in this encounter Plan of Treatment Upcoming Encounters Date Type Department Care Team (Late st Contact Info) Description 08/19/2023 9:30 AM CDT Office Visit [facility] Maternal Medicine [facility] [address] [place], [place] [address] Jair Sanchez MD [address] [address] Sue Sahni CN 606 [facility] [address] [phone] 08/19/2023 9:30 AM CDT Office Visit [facility] Pit Inspector Services [address] [place] [phone] 08/19/2023 10:30 AM CDT Office Visit [facility] Maternal [facility] [address] [place], [place] [phone] Jair Sanchez MD [address] [phone] Sue Sahni CNM [address] [facility] [address] 787104 08/19/2023 11:00 AM CDT Hospital Encounter [facility] [address] [place] [phone] Sue Sahni CNM [address] [facility] [address] [phone] Urmfmusfet 08/19/2023 11:45 AM CDT Appointment [facility] [place] [address] [place] [phone] Jair Sanchez MD [address] [address] Sue Sahni CNM [address] [address] 08/19/2023 12:15 PM CDT Office Visit [facility] Maternal Medicine [facility] [address] [place], [place] [address] Jair Sanchez MD [address] 109214 Sue Sahni CN [address] [address] 08/31/2023 2:15 PM CDT Appointment [facility] [place] [address] [place] [phone] Jair Sanchez MD [address] 758984 08/31/2023 2:45 PM CDT Office Visit [facility] Maternal Medicine [facility] [address] [place], [place] [address] Jair Sanchez MD [address] 372094 08/31/2023 3:00 PM CDT Office Visit [facility] Maternal Medicine [facility] [address] [place], [place] [address] Swati Hurst MD [address] [place], [place] [phone] documented as of this encounter Visit Diagnoses Not on filedocumented in this encounter Care Teams Equity Holder Relationship Specialty Start Date End Date No Ref-Primary, Physician PCP - General 05/08/23 documented as of this encounter
--- OUTSIDE RECORDS SUMMARY | 2023-08-13 14:03 | XMS_ITS | Encounter Summary ---
Author Organization [place] Address [address] [facility] [place] [address] Care Team Providers Care In Store Banker Name Role Phone No Ref-Primary, Physician Primary Care Provider Reason for Referral * Consultation (Routine: Next available opening) - Pending Review Specialty Diagnoses / Procedures Referred By Contac t Referred To Contact Diagnoses Abnormal ultrasound abnormality affecting management of mother, single or unspecified fetus Encounter for procreative genetic counseling and testing Leyda Guzman MD [address] [facility] [address] [place] [address] Referral ID Status Reason Start Date Expiration Date V isits Requested Visits Authorized [id number] Pending Review 05/08/2023 05/07/2024 1 1 OLOGY RECEPTIONIST Encounter Details Date Type Department Care Team (Late st Contact Info) Description 05/08/2023 Orders Only [facility] [place] [address] [place] [phone] Kody Davey GC [address] [place] [address] Abnormal ultrasound (Primary Dx); abnormality [...] Description 08/19/2023 9:30 AM CDT Office Visit [facility] [place] [address] [place] [address] Jair Sanchez MD [address] [address]55[address] Sue Sahni CNM 606 [facility] [address] 477[address] 08/19/2023 9:30 AM CDT Office Visit [facility] Full Decator Operator Services [address] [place] [phone] 08/19/2023 10:30 AM CDT Office Visit [facility] [place] [address] [place], [place] [address] Jair Sanchez MD [address] 358614 Sue Sahni CNM 606 [facility] [address] 022854 08/19/2023 11:00 AM CDT Hospital Encounter [facility] [address] [place] [phone] Sue Sahni CNM [address] 677184 Urmfmusfet 08/19/2023 11:45 AM CDT Appointment [facility] [place] [address] [phone] Jair Sanchez MD [address] [facility] [address] [place], [place] [address] [phone] Sue Sahni CN [address] [address] 08/19/2023 12:15 PM CDT Office Visit [facility] [place] [address] [place] [address] Jair Sanchez MD [address] 685204 [phone] Sue Sahni [facility] [address] [address] 08/31/2023 2:15 PM CDT Appointment [facility] [place] [address] [place] [address] Jair Sanchez MD [address] [address] 08/31/2023 2:45 PM CDT Office Visit [facility] [place] [address] [place] [address] Jair Sanchez MD [address] 833694 [phone] 08/31/2023 3:00 PM CDT Office Visit [facility] [place] [address] [place], [place] [address] Swati Hurst MD [address] 723861 [phone] Scheduled Referrals Name Type Priority Associated Diagnoses Orde r Schedule [facility] Genetic Counseling Referral Routine: Next available [...] testing documented in this encounter Care Teams In Store Banker Relationship Specialty Start Date End Date No Ref-Primary, Physician PCP - General 05/08/23 documented as of this encounter
--- OUTSIDE RECORDS SUMMARY | 2023-08-13 14:03 | XMS_ITS | Encounter Summary ---
Author Organization [place] Address [address] [place] [address]. [place] [address] Care Team Providers Care Director Equipment Name Role Phone No Ref-Primary, Physician Primary Care Provider Reason for Referral * (Routine) - Closed Specialty Diagnoses / Procedures Referred By Contac t Referred To Contact Cardiology Diagnoses Anomaly of heart of fetus affecting , antepartum, single or unspecified fetus Procedures Echo (TTE) Complete Yifan Clancy MD [address] [place] [address] [facility] [address] [place] [phone] Referral ID Status Reason Start Date Expiration Date Visits Re quested Visits Authorized [id number] Closed 07/14/2023 07/06/2024 1 1 Encounter Details Date Type Department Care Team (Late st Contact Info) Description 07/07/2023 Orders Only [facility] [address] [place] [address] [facility] [address] [place] [address] Yifan Clancy MD [address] [place] [address] Anomaly of heart of fetus affecting [...] Description 08/19/2023 9:30 AM CDT Office Visit [facility] M[facility] Medicine [facility] [place] [address] [place], [place] [address] Jair Sanchez MD [address] [facility] [address] [address] Sue Sahni CNM [address] [place], [place] [address]E [address] [address] 08/19/2023 9:30 AM CDT Office Visit [facility] Offset Lithographic [employer] Operator Services [address] [place] [phone] 08/19/2023 10:30 AM CDT Office Visit [facility] Maternal Medicine [facility] [address] [place], [place] [address] Jair Sanchez MD [address] 345844 Sue Sahni CNM [address] [facility] [address] 266434 08/19/2023 11:00 AM CDT Hospital Encounter [facility] [address] [place] [phone] Sue Sahni CNM [address] [place], [place] [address]E [address] 901144 Urmfmusfet 08/19/2023 11:45 AM CDT Appointment [facility] [place] [address] [place] [phone] Jair Sanchez MD [address] 295[address] [phone] Sue Sahni CN [address] 649482 [phone] 08/19/2023 12:15 PM CDT Office Visit [facility] Maternal Medicine [facility] [address] [place] [address] Jair Sanchez MD [address] 227369 [phone] Sue Sahni [facility] [address] 270730 [phone] 08/31/2023 2:15 PM CDT Appointment [facility] Maternal Medicine [facility] [address] [place] [address] Jair Sanchez MD [address] 823536 [phone] 08/31/2023 2:45 PM CDT Office Visit [facility] Maternal Medicine [facility] [address] [place] [address] Jair Sanchez MD [address] 549199 [phone] 08/31/2023 3:00 PM CDT Office Visit [facility] Maternal Medicine [facility] [address] [place], [place] [address] Swati Hurst MD [address] [address] documented as of this encounter Results * ECHO COMPLETE (07/14/2023 10:10 AM CDT) Anatomical Region Laterality Modality Echocardiography 07/14/2023 8:18 AM CDT Narrative 07/14/2023 10:23 AM CDT [id number]^CLANCY^YIFAN ? Study ID: [id number] ?[facility] ?[facility] ?[address] ?[place] [address] ? Echocardiogram Name: RA NARAYAN Study Date: 07/14/2023 08:18 AM ? Patient Location: [facility] Gender: Female ?Patient Class: Outpatient [...] blood. pressure gradient. Delivery is recommended at [facility]. Cardiology consultation and echocardiogram is recommended immediately [...] to the left atrium. There is laminar mzhhc-ue-awfb shunting across the foramen ovale. Atrioventricular valves: [...] Note Carlos Alberto Ott MD - 07/14/2023 [id number]^CLANCY^YIFAN Study ID:[id number] [facility] [address] [address] Echocardiogram Name: RA NARAYAN Study Date: 07/14/2023 08:18 AM Patient Location: [facility] Gender: Female Patient Class:Outpatient : [...] limb blood. pressure gradient. Delivery is recommended [facility]. Cardiology consultation and echocardiogram isrecommended immediately [...] in to the left atrium. There is djbpkmbyfvnv-dy-wvjd shunting across the foramen ovale. Atrioventricular valves: [...] fetus documented in this encounter Care Teams Director Equipment Relationship Specialty Start Date End Date No Ref-Primary, Physician PCP - General 05/08/23 documented as of this encounter
--- OUTSIDE RECORDS SUMMARY | 2023-08-13 14:03 | XMS_ITS | Encounter Summary ---
Author Organization [place] Address [facility] [place] [address] Care Team Providers Care Sas Programmer Name Role Phone No Ref-Primary, Physician Primary [...] 08/19/2023 9:30 AM CDT Office Visit [facility] Maternal Medicine [facility] [address] [place], [place] [address] Jair Sanchez MD [address] 173214 Sue Sahni CNM [address] [facility] 400 [place], [place] [address] 08/19/2023 9:30 AM CDT Office Visit [facility] Pan Cleaner Services [facility] [place] [address] 08/19/2023 10:30 AM CDT Office Visit [facility] M[facility] [place] [address] [place] [address] Jair Sanchez MD [address] [place], [place] 4399[address] Sue Sahni CN [address] [place] [address] [place] [address] 08/19/2023 11:00 AM CDT Hospital Encounter [facility] [address] [place] [phone] Sue Sahni CN [address] [address] Urmfmusfet 08/19/2023 11:45 AM CDT Appointment [facility] [place] [address] [place] [phone] Jair Sanchez MD [address] [address] [place] [address] 756924 Sue Sahni CNM [address] [place] [address] [place] [address] 08/19/2023 12:15 PM CDT Office Visit [facility] [place] [address] [place] [address] Jair Sanchez MD [address] [place] [address] [place] [address] Sue Sahni CNM [address] [place] [address] [place] [address] 08/31/2023 2:15 PM CDT Appointment [facility] Maternal Medicine [facility] [address] [address] Jair Sanchez MD [address] 894204 08/31/2023 2:45 PM CDT Office Visit [facility] Maternal Medicine [facility] [address] [address] Jair Sanchez MD [address] 0935[address] 08/31/2023 3:00 PM CDT Office Visit [facility] Maternal Medicine [facility] [address] [place], [place] [address] Swati Hurst MD [address] 4258[address] documented as of this encounter Visit Diagnoses Not on filedocumented in this encounter Care Teams Sas Programmer Relationship Specialty Start Date End Date No Ref-Primary, Physician PCP - General 05/08/23 documented as of this encounter
--- OUTSIDE RECORDS SUMMARY | 2023-08-13 14:03 | XMS_ITS | Encounter Summary ---
Author Organization [place] Address [facility] [place] [address] Care Team Providers Care Business Management Manager Name Role Phone No Ref-Primary, Physician Primary Care Provider Reason for Referral * Diagnostic Imaging Ultrasound (Routine) - Pending Review Specialty Diagnoses / Procedures Referred By Contac t Referred To Contact Radiology. Diagnoses Maternal care for other (suspected) abnormality and damage, cardiac anomalies, fetus 1 Procedures [facility] US Comprehensive Single F/U Suresh Guzman MD [address] [place] [address] Referral ID Status Reason Start Date Expiration Date V isits Requested Visits Authorized [id number] Pending Review 05/08/2023 05/07/2024 1 1 PAINTER * (Routine) - Closed Specialty Diagnoses / Procedures Referred By Contac t Referred To Contact Cardiology Diagnoses Maternal care for other (suspected) abnormality and damage, cardiac anomalies, fetus 1 Procedures Echo (TTE) Complete Suresh Guzman MD [address] [place] [address] [facility] [address] [place] [address] Referral ID Status Reason Start Date Expiration Date Visits Re quested Visits Authorized [id number] Closed 05/08/2023 05/07/2024 1 1 PAINTER Reason for Visit * Reason Comments Ultrasound L2-covid + in first tri Encounter Details Date Type Department Care Team (Late st Contact Info) Description 05/08/2023 2:45 PM BAIT PAINTER Office Visit [facility] Maternal Medicine [facility] [place] [address] [place] [phone] Francia Epps APRN [facility] [address] [place] [address] Suresh Guzman MD [address] [place] [address] complicated by congenital heart disease, [...] for details of today's visit. Suresh Guzman PAINTER documented in this encounter Nursing Notes * Shirley Heller, RN - 05/08/2023 2:45 PM CST Patient presents to [facility] for L2 at 19w0d due to covid + in first tri. Positive movement. Denies LOF, vaginal bleeding or cramping/contractions. SBAR given to [facility] , see their note in Epic. PAINTER documented in this encounter Plan of Treatment Upcoming Encounters Date Type Department Care Team (Late st Contact Info) Description 08/19/2023 9:30 AM CDT Office Visit [facility] Maternal Medicine Center [place] [address] [place], [place] [address] Jair Sanchez MD [address] 754424 Sue Sahni CNM [address] 738[address] 08/19/2023 9:30 AM CDT Office Visit [facility] Office Rental Clerk Services [address] [place] [phone] 08/19/2023 10:30 AM CDT Office Visit [facility] Maternal Medicine [facility] [address] [place], [place] [address] Jair Sanchez MD [address] 644874 Sue Sahni CNM [address] 753914 08/19/2023 11:00 AM CDT Hospital Encounter [facility] [address] [place] [phone] Sue Sahni CN [address] 923354 Urmfmusfet 08/19/2023 11:45 AM CDT Appointment [facility] Maternal Medicine [facility] [address] [place] [phone] Jair Sanchez MD [address] 800374 Sue Sahni CN [address] [email or web address] 400 [place], [place] [address] 08/19/2023 12:15 PM CDT Office Visit [facility] Maternal Medicine [facility] [address] [place], [place] [address] Jair Sanchez MD [address] 687544 Sue Sahni [facility] [address] 871554 08/31/2023 2:15 PM CDT Appointment [facility] Maternal Medicine [facility] [address] [place] [phone] Jair Sanchez MD [address] 925114 08/31/2023 2:45 PM CDT Office Visit [facility] Maternal Medicine [facility] [address] [place], [place] [address] Jair Sanchez MD [address] 473494 08/31/2023 3:00 PM CDT Office Visit [facility] Maternal Medicine [facility] [address] [place], [place] [address] Swati Hurst MD [address] 566774 documented as of this encounter Results * [facility] US Comprehensive Single F/U (06/01/2023 8:34 [...] Pat. Name: ROSEMARY NARAYAN ? Study Date: ??06/01/2023 7:57am Pat. NO: ??[id number] ?Referring ??: FRANCIA EPPS Site: ??[facility] ? Perfume Maker: Mumtaz Ventura RDMS : ??2000 ?Age: ?? [...] 1 lb 1 ?oz EFW by ?Hadlock ([id number]) Head / Face / Neck Biometry: Travel Agent ? 5.4 ? mm CM ?5.2 ? mm ANATOMY ----- The following structures appear abnormal: Heart / Thorax ?4-chamber view: Left side of the heart is small . LVOT view. 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 3-vessel view: small aorta. ? 1-rumxhg-ojtxjwf view: small aorta . The following structures [...] the patient (reviewing medical records/tests), in direct vurk-au-djqw contact with the patient during her visit with the majority spent counseling and discussing the plan of care and documenting the visit in the electronic medical record. Please see note for details. Procedure Note Swati Hurst MD - 06/01/2023 Comp Follow Up ----- Pat. Name: ROSEMARY NARAYAN Study Date: 06/01/2023 7:57am Pat. NO: [id number] Referring MD: FRANCIA EPPS Site: [facility] Perfume Maker: Mumtaz Ventura RDMS : 2000 Age: 22 [...] 1 lb 1 oz EFW by Hadlock ([id number]) Head / Face / Neck Biometry: Travel Agent 5.4 mm CM 5.2 mm ANATOMY ----- The following structures appear abnormal: Heart / Thorax 4-chamber view: Left side of the heartis small . LVOT view. 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 1-ubjulw-bdndjlv view: smallaorta . The following structures appear [...] see the patient (reviewing medical records/tests), in gonydfadfy-te-luwq contact with the patient during her visit [...] fluid volume appeared normal. Suresh Guzman MD [facility] US ORDERABLE S * ECHO COMPLETE (05/20/2023 9:52 AM BAIT PAINTER) Anatomical Region Laterality Modality Echocardiography 05/20/2023 8:11 AM BAIT PAINTER Narrative 05/20/2023 10:23 AM BAIT PAINTER [id number]^NEREIDA^SURESH ? Study ID: [id number] ?[facility] ?[facility] ?[address] ?[place] [address] ? Echocardiogram Name: ROSEMARY NARAYAN Study Date: [...] to the left atrium. There is laminar qmatr-at-nxvg shunting across the foramen ovale. Atrioventricular valves: [...] Procedure Note Yifan Aponte MD - 05/20/2023 [id number] [facility] [id number]^NEREIDA^SURESH Study ID:[id number] [facility]'[address] [address] Echocardiogram Name: GRZEGORZ AN, ROSEMARY L Study Date: 05/20/2023 08:11 AM Patient Location: [facility] Gender: Female Patient Class:Outpatient : 2000 [...] in to the left atrium. There is gdznnfalbqms-pa-wrcz shunting across the foramen ovale. Atrioventricular valves: [...] fetus documented in this encounter Care Teams Business Management Manager Relationship Specialty Start Date End Date No Ref-Primary, Physician PCP - General 05/08/23 documented as of this encounter
--- OUTSIDE RECORDS SUMMARY | 2023-08-13 14:03 | XMS_ITS | Encounter Summary ---
Author Organization [place] Address [facility] [place] [address] Care Team Providers Care Crystal Finisher Name Role Phone No Ref-Primary, Physician Primary [...] Description 08/19/2023 9:30 AM CDT Office Visit [facility] Maternal Medicine [facility] [address] [place], [place] [address] Jair Sanchez MD [address] [address] Sue Sahni CNM [address] [facility] [address] [place], [place] [address] 08/19/2023 9:30 AM CDT Office Visit [facility] Medical Research Assistant Services [facility] [place] [address] 08/19/2023 10:30 AM CDT Office Visit [facility] [place] [address] [place] [address] Jair Sanchez MD [address] [place] [address] [place], [place] [address] Sue Sahni CN [address] [place] [address] [place] [address] 08/19/2023 11:00 AM CDT Hospital Encounter [facility] [address] [place] [phone] Sue Sahni CN [address] [address] Urmfmusfet 08/19/2023 11:45 AM CDT Appointment [facility] [place] [address] [place] [phone] Jair Sanchez MD [address] [place] [address] [place] [phone] uSe Sahni CNM [address] [place] [address] [place] [address] 08/19/2023 12:15 PM CDT Office Visit [facility] [place] [address] [place] [address] Jair Sanchez MD [address] [place] [address] [place] [address] [phone] Sue Sahni CNM [address] [place] [address] [place] [address] 08/31/2023 2:15 PM CDT Appointment [facility] Maternal [facility] [address] [place] [address] Jair Sanchez MD [address] [address] 08/31/2023 2:45 PM CDT Office Visit [facility] Maternal Medicine [facility] [address] [place] [address] Jair Sanchez MD [address] [address] 08/31/2023 3:00 PM CDT Office Visit [facility] Maternal Medicine [facility] [address] [place], [place] [address] Swati Hurst MD [address] 669184 documented as of this encounter Visit Diagnoses Not on filedocumented in this encounter Care Teams Crystal Finisher Relationship Specialty Start Date End Date No Ref-Primary, Physician PCP - General 05/08/23 documented as of this encounter
--- OUTSIDE RECORDS SUMMARY | 2023-08-13 14:03 | XMS_ITS | Encounter Summary ---
Author Organization [place] Address [address] [facility] [place] [address] Care Team Providers Care Oxyacetylene Torch Operator Name Role Phone No Ref-Primary, Physician Primary Care Provider Encounter Details Date Type Department Care Team (Late st Contact Info) Description 05/21/2023 MyC Medical Advice [facility] [address] [facility] [address] [place] [address] Kym Little, DIPTI Social History [...] Description 08/19/2023 9:30 AM CDT Office Visit [facility] [place] [address] [place] [address] Jair Sanchez MD [address] [place] [address] [place] [address] Sue Sahni CNM [address] [place] [address] [place] [address] 08/19/2023 9:30 AM CDT Office Visit [facility] Cobbler Sole Services [facility] [place] [address] 08/19/2023 10:30 AM CDT Office Visit [facility] [address] [place], [place] [address] Jair Sanchez MD [address] [facility] [address] [place], [place] [address] Sue Sahni CN [address] [phone] 08/19/2023 11:00 AM CDT Hospital Encounter [facility] [address] [place] [phone] Sue Sahni CN [address] 370554 Urmfmusfet 08/19/2023 11:45 AM CDT Appointment [facility] [address] [place] [phone] Jair Sanchez MD [address] 618404 Sue Sahni CN [address] [address] 08/19/2023 12:15 PM CDT Office Visit [facility] [address] [place], [place] [address] Jair Sanchez MD [address] 514784 Sue Sahni CNM [address] [place] [address] [place], [place] [address] 08/31/2023 2:15 PM CDT Appointment [facility] [address] [place] [address] Jair Sanchez MD [address] [place] [address] [place] [address] 996294 08/31/2023 2:45 PM CDT Office Visit [facility] [address] [place], [place] [address] Jair Sanchez MD [address] 357[address] 08/31/2023 3:00 PM CDT Office Visit [facility] [address] [place], [place] [address] Swati Hurst MD [address] [phone] documented as of this encounter Visit Diagnoses Not on filedocumented in this encounter Care Teams Oxyacetylene Torch Operator Relationship Specialty Start Date End Date No Ref-Primary, Physician PCP - General 05/08/23 documented as of this encounter
--- OUTSIDE RECORDS SUMMARY | 2023-08-13 14:04 | XMS_ITS | Clinical Summary ---
Author Organization [facility] Address [place], [place] [address] Care Team Providers Care Infant Toddler Lead Teacher Name Role Phone Anitha Ojeda DO Primary Care Provider [phone] Allergies Active Allergy Reactions Criticality Noted Date Comments [place] Shortness Of Breath,Rash 01/03/2020 Medications Medication Sig [...] Comments Blood Pressure 121/78 02/18/2022 9:36 AM SOFTWARE PUBLISHER Pulse 70 02/18/2022 9:36 AM SOFTWARE PUBLISHER Temperature 37.1 ??C (98.8 ??F) 09/30/2021 1:43 PM CD T Respiratory Rate 14 12/21/2020 8:12 AM CDT Oxygen Saturation 99% 02/18/2022 9:36 AM SOFTWARE PUBLISHER Inhaled Oxygen Concentration - - Weight 82.6 kg (182 lb) 02/18/2022 9:36 AM SOFTWARE PUBLISHER Height 157 cm (5' 1.81) 07/11/2021 8:31 [...] CHLAMYDIA TRACH PROBE Routine 05/20/2021 3:33 PM SOFTWARE PUBLISHER Routine screening for STI (sexually transmitted infection) ANTI HIV 1/2 Routine 06/29/2020 3:20 PM CDT Leukocytosis, unspecified type Thrombocytosis (HC) from Last 3 Months or Most Recently Relevant to Health Maintenance Results * HPV HIGH RISK (09/12/2022 3:00 PM CDT) TYPE 16 Negative Negative 09/23/2022 5:00 PM CDT [facility] TYPE 18 Negative Negative 09/23/2022 5:00 PM CDT [facility] OTHER HIGH RISK TYPES Negative Negative 09/23/2022 5:00 PM CDT [facility] Other (Other) 09/12/2022 3:0 0 PM CDT 09/17/2022 12:19 PM CDT Narrative [facility] - 09/23/2022 5:00 PM CDT HPV types 16, 18, 31, 33, 35, 39, 45, 51, 52, 56, 58, 59, 66 and 68 DNA were undetectable or below the pre-set threshold. Methodology: Michelle Adela 4800 HPV Test Alley Johnson MD MICROBIOLO GY [facility] [address] [place] [address], [place] * GC CHLAMYDIA TRACH PROBE (05/20/2021 3:33 PM SOFTWARE PUBLISHER) CHLAMYDIA PROBE Negative 4:11 AM SOFTWARE PUBLISHER [facility] N GONORRHOEAE PROBE Negative 05/21/2021 4:11 AM SOFTWARE PUBLISHER [facility] Other URINE SPECIMEN / Unknown Non-Blood / Unknown 05/20/2021 3:33 PM SOFTWARE PUBLISHER 05/20/2021 3:34 PM SOFTWARE PUBLISHER Madina Goetz MD MICROBIOLOG Y [facility] [address] [place] [address], * ANTI HIV 1/2 (06/29/2020 3:20 PM CDT) Pathologist [facility] HIV-1/HIV-2 ANTIBODY Non-Reacti ve Non-Reacti ve 06/29/2020 9:14 PM CDT [facility] Comment:HIV-1 p24 and HIV-1/ HIV-2 Ab not detected. Blood BLOOD SPECIMEN / Unknown Venipuncture / Unknown 06/29/2020 3:20 PM CDT 06/29/2020 3:20 PM CDT Anitha Ojeda DO SEND OUTS Performing Organization Address [facility]/ZIP Co de Phone Number [facility] [address] [place] [address], from Last 3 Months or Most Recently Relevant to Health Maintenance Care Teams Infant Toddler Lead Teacher Relationship Specialty Start Date End Date Anitha Ojeda DO [facility] [place] [address] PCP - General Family Practice 07/05/20
--- OUTSIDE RECORDS SUMMARY | 2023-08-13 14:04 | XMS_ITS | Encounter Summary ---
Author Organization [place] Address [address] [facility] [place] [address] Care Team Providers Care Fork Truck Operator Name Role Phone No Ref-Primary, Physician Primary Care Provider Reason for Referral * Diagnostic Imaging Ultrasound (Routine) - Pending Review Specialty Diagnoses / Procedures Referred By Contac t Referred To Contact Radiology. Diagnoses related condition, antepartum Procedures [facility] Francia Epps APRN [facility] [address] [place] [address] Referral ID Status Reason Start Date Expiration Date V isits Requested Visits Authorized [id number] Pending Review 03/18/2023 03/17/2024 1 1 COMMUNICATION TOWER TECHNICIAN Reason for Visit * Diagnostic Imaging Ultrasound (Routine) - Pending Review Specialty Diagnoses / Procedures Referred By Contac t Referred To Contact Radiology. Diagnoses related condition, antepartum Procedures [facility] Francia Epps APRN [facility] [address] [place] [address] Referral ID Status Reason Start Date Expiration Date V isits Requested Visits Authorized [id number] Pending Review 03/18/2023 03/17/2024 1 1 Encounter Details Date Type Department Care Team (Latest Contact Info) Description 05/08/2023 2:05 PM TELECOMMUNICATION TOWER TECHNICIAN - 05/08/2023 11:59 PM TELECOMMUNICATION TOWER TECHNICIAN Hospital Encounter [facility] M[facility] [place] [address] [facility] [address] [place] [phone] Francia Epps APRN [facility] [address] [address] Leyda Guzman MD [address] [facility] [address] [place], [place] [address] related condition, antepartum Discharge Disposition: Home or [...] [facility] [place] [address] [place], [place] [address] Jair Sanchez MD [address] [address] Sue Sahni CN [address] [facility] [address] [place], [place] [address] 08/19/2023 9:30 AM CDT Office Visit [facility] Forest Supervisor Services [facility] [place] [phone] 08/19/2023 10:30 AM CDT Office Visit [facility] [place] [address] [place], [place] [address] Jair Sanchez MD [address] [facility] [address] [place], [place] [address] Sue Sahni CNM [address] [place] [address] [place], [place] [address] 08/19/2023 11:00 AM CDT Hospital Encounter [facility] [address] [place] [phone] Sue Sahni CNM [address] [address] [place], [place] [address] Urmfmusfet 08/19/2023 11:45 AM CDT Appointment [facility] Maternal Medicine [facility] [address] [place] [phone] Jair Sanchez MD [address] [address] Sue Sahni CN [address] [place] [address] [place], [place] [address] 08/19/2023 12:15 PM CDT Office Visit [facility] Maternal Medicine [facility] [address] [place], [place] [address] Jair Sanchez MD [address] [facility] [address] [place], [place] [phone] Sue Sahni CNM [address] [place] [address] [place], [place] [address] 08/31/2023 2:15 PM CDT Appointment [facility] Maternal Medicine [facility] [address] [place] [phone] Jair Sanchez MD [address] [place] [address] [place], [place] [address] 08/31/2023 2:45 PM CDT Office Visit [facility] [place] [address] [place] [address] Jair Sanchez MD [address] [facility] [address] [place], [place] [address] 08/31/2023 3:00 PM CDT Office Visit [facility] Maternal Medicine [facility] [address] [place] [address] Swati Hurst MD [address] [address] documented as of this encounter Procedures Procedure Name Priority Date/Time Associated Diagnosis Comments [facility] US COMPREHENSIVE SINGLE Routine 05/08/2023 3:10 PM TELECOMMUNICATION TOWER TECHNICIAN related condition, antepartum documented in this encounter Results * [facility] US Comprehensive Single (05/08/2023 3:10 PM TELECOMMUNICATION TOWER TECHNICIAN) Anatomical Region Laterality Modality Ultrasound 05/08/2023 1:57 PM TELECOMMUNICATION TOWER TECHNICIAN Impressions 05/08/2023 7:13 PM TELECOMMUNICATION TOWER TECHNICIAN IMPRESSION ----- 1) Estrada intrauterine at 19w [...] volume appeared normal. Narrative 05/08/2023 7:13 PM TELECOMMUNICATION TOWER TECHNICIAN ?Comprehensive ----- Pat. Name: ROSEMARY NARAYAN ? Study Date: ??05/08/2023 1:57pm Pat. NO: ??[id number] ?Referring ??MD: FRANCIA EPPS Site: ??[facility] ? Printed Circuit Board Reworker: Bettie Bernstein RDMS : ??2000 ?Age: ?? [...] Biometry: BPD ?38.6 ?mm ? 17w 5d ?Mecca BAUM ?55.9 ?mm ? 18w 3d ?Nicolaides HC ?152.4 ?mm ?18w 2d ?Hadlock Cerebellum tr ?18.9 ? mm ?18w 3d ?Nicolaides AC ?141.0 ?mm ?19w 3d ?62% ?Hadlock Femur ?27.4 ? mm ?18w 3d ?Hadlock Humerus ?26.5 ?mm ? 18w 3d ?Ana Weight Calculation: EFW ? 261 ? g ? 36% ?Hadlock EFW (lb,oz) ? 0 lb 9 ?oz EFW by ?Hadlock ([id number]) Head / Face / Neck Biometry: Manager Php ? 5.6 ? mm CM ?5.6 ? [...] pulmonary artery and the superior vena cava 3-yrdyba-lbgqhwx view ? abnormal, Aorta is small compared [...] the patient (reviewing medical records/tests), in direct wesl-lv-adqu contact with the patient during her visit with the majority spent counseling and discussing the plan of care and documenting the visit in the electronic medical record. Please see note for details. Procedure Note Leyda Guzman MD - 05/08/2023 Comprehensive ----- Pat. Name: ROSEMARY NARAYAN Study Date: 05/08/2023 1:57pm Pat. NO: [id number] Referring MD: FRANCIA EPPS Site: [facility] Printed [employer] Board Reworker: Bettie Bernstein RDMS : 2000 Age: 22 [...] 0 lb 9 oz EFW by Hadlock ([id number]) Head / Face / Neck Biometry: Manager Php 5.6 mm CM 5.6 mm Nasal bone [...] the pulmonary artery and thesuperior vena cava 6-rnufti-oqdykpm viewabnormal, Aorta is small compared to the [...] see the patient (reviewing medical records/tests), in magjdtkzwq-qb-sjuk contact with the patient during her visit [...] appeared normal. Francia Epps APRN, CNM IMG M US ORDERAB LES documented in this encounter Visit Diagnoses Diagnosis related condition, antepartum documented in this encounter Care Teams Fork Truck Operator Relationship Specialty Start Date End Date No Ref-Primary, Physician PCP - General 05/08/23 documented as of this encounter
== END 2023-08-13 14:00 | disposition home or self-care (01) ==
LOC: US 13:59
PROVIDERS: Visit Provider Obstetrics & Gynecology
DX: O35.BXX0 Maternal care for other (suspected) fetal abnormality and damage, fetal cardiac anomalies, not applicable or unspecified (principal); Z3A.32 32 weeks gestation of pregnancy
CPT/HCPCS: 76819

== ENCOUNTER 2023-08-25 13:56 | Outpatient (CLI) | payer MEDICAID, SELFPAY ==
--- OUTSIDE RECORDS SUMMARY | 2023-08-25 13:58 | XMS_ITS | Encounter Summary ---
Author Organization [place] Address [address] [place] [address] Care Team Providers Care Food And Drug Inspector Name Role Phone No Ref-Primary, Physician Primary Care Provider Encounter Details Date Type Department Care Team ([facility] st Contact Info) Description 08/19/2023 Office Visit [facility] Services - Heart & Vascular Service Line [address] [place] [phone] Yonatan Black MD [facility] [address] [address] cardiac disease affecting , single or unspecified fetus (Primary Dx) Social History Tobacco Use Types Packs/Day Years Used Date Smoking Tobacco: Never Assessed PHQ-2 Answer Date Recorded PHQ-2 Score 0 08/19/2023 Adolescent Education Answer Date Record ed Getting School Help Needed Not on file 03/18 Estimated Date of Delivery Comme nts Yes 10/02/2023 Based on Ultraso und Sex and Gender Information Value Date Recorded Sex Assigned at Not on file Gender Identity Not on file Sexual Orientation Not on file documented as of this encounter Progress Notes * Yonatan Black MD - 08/19/2023 11:59 PM CDT Cardiology Consultation Patient: Rosemary Osborne Date of : 2000 Age: [age] year old Date of Visit: 08/19/2023 PCP: No Ref-Primary, Physician JAYE: 10/02/2023, by Ultrasound EGA: 33w6d weeks Dear Doctor: I had the pleasure of seeing Rosemary Osborne at the [facility] in [place] on 08/19/2023 in ongoing consultation for echocardiography results. She presented today accompanied by her partner. As you know, she is a 22 year old female with current affected by coarctation of the aorta. 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 Coarctation of the aorta with posterior shelf and retrograde diastolic flow in the transverse aorta. Mild/moderate mitral valve annulus hypoplasia with thickened leaflets and likely shortened chordae to a single papillary muscle. The left ventricle is narrow but reaches the cardiac apex. Normal aortic valve annulus dimension with likely bicuspid leaflets. Normal right ventricular size and systolic function; no tricuspid valve regurgitation. Normal left ventricular systolic function. Normal mitral valve inflow profile suggests reasonable left ventricular compliance. Normal pulmonary venous flow profile. No effusion. I reviewed and interpreted the echocardiogram today. I discussed the anatomy, physiology, expected course, and need for post- confirmation. The cardiac anatomy is expected to be dependent on the ductus arteriosus after for systemic perfusion. The expected post- intervention will depend on confirmation of these findings, and is likely to include surgery. -- No additional echocardiograms are recommended for this . -- A post- transthoracic echocardiogram is recommended immediately following delivery with pediatric cardiology consultation. -- Delivery should occur at [facility]. Thank you for allowing me to participate in Ms. Wilfrido Osborne's care. Please don't hesitate to contact me or the Cardiology team at [facility] with any questions or concerns. I spent a total of 60 minutes on the date of the encounter doing chart review, patient history, documentation, counseling, and coordinating care. Yonatan Black MD Pediatric Cardiology [facility] Review of the result(s) of each unique test - echocardiogram documented in this encounter Plan of Treatment Upcoming Encounters Date Type Department Care Team (Late st Contact Info) Description 08/31/2023 2:15 PM CDT Appointment [facility] [address] [place] [address] Hetal Parra MD [address] [place] [address] 08/31/2023 2:45 PM CDT Office Visit [facility] [place] [address] [place] [address] Hetal Parra MD [address] [place] [address] 08/31/2023 3:00 PM CDT Office Visit [facility] [address] [place] [address] Hetal Parra MD [address] [place] [address] [place] [address] 08/31/2023 3:00 PM CDT Office Visit [facility] [address] [place] [address] Hetal Parra MD [address] [place] [address] [place] [address] documented as of this encounter Visit Diagnoses Diagnosis cardiac disease affecting , single or unspecified fetus- Primary documented in this encounter Additional Health Concerns Assessment Noted Time PHQ-9 Depression Total Score: 0 08/19/19 12:54 PM CDT documented as of this encounter Care Teams Food And Drug Inspector Relationship Specialty Start Date End Date No Ref-Primary, Physician PCP - General 05/08/23 documented as of this encounter
--- OUTSIDE RECORDS SUMMARY | 2023-08-25 13:58 | XMS_ITS | Referral Summary ---
Author Organization [facility] Address [address] [place] [address] Care Team Providers Care Refueling Rampman Name Role Phone No Ref-Primary, Physician Primary Care Provider Encounters Date Type Department Care Team Description 08/19/2023 Office Visit [facility] Services - Heart & Vascular Service Line [address] [place] [phone] Yonatan Black MD cardiac disease affecting , single or unspecified fetus (Primary Dx) 08/19/2023 Documentation Only [facility] CASE MANAGEMENT [id number] Edda Ohara, [facility] 08/19/2023 Orders Only [facility] [address] [place] [address] Clinic [address] [place] [address] Carlos Alberto Leonard MD Anomaly of heart of fetus affecting , antepartum, single or unspecified fetus (Primary Dx) 08/19/2023 Travel 08/19/2023 9:25 AM CDT - 08/19/2023 11:44 AM CDT Hospital Encounter [facility] [address] [place] [phone] Leyda Guzman MD Urmfmusfet Anomaly of heart of fetus affecting , antepartum, single or unspecified fetus Discharge Disposition: Home or Self Care 08/19/2023 10:00 AM CDT Office Visit [facility] [address] [address] Gudelia Sahni CNM related condition, antepartum 08/19/2023 12:15 PM CDT Office Visit [facility] [address] [place] [address] Leyda Guzman MD complicated by congenital heart disease, single or unspecified fetus (Primary Dx) 08/19/2023 11:45 AM CDT - 08/19/2023 11:59 PM CDT Hospital Encounter [facility] [address] [place] [address] Leyda Guzman MD related condition, antepartum Discharge Disposition: Home or Self Care 08/19/2023 9:30 AM CDT Office Visit [facility] [address] [place], [place] [address] [place] [address] Gudelia Sahni CNM Supervision of high risk in third trimester (Primary Dx); complicated by congenital heart disease, single or unspecified fetus 08/17/2023 MyC Medical Advice [facility] [address] [facility] [address] [place] [address] Soumya Rodriguez LPN 08/04/2023 Orders Only [facility] [address] [place] [address] Louise Haley GC Abnormal ultrasound (Primary Dx) 08/04/2023 Telephone [facility] [address] [place] [address] Shaunna Nolasco RN Appointment 08/04/2023 Orders Only [facility] [address] [place] [address] Shaunna Nolasco RN related condition, antepartum (Primary Dx) 08/03/2023 Telephone [facility] [address] [place] [address] Shaunna Nolasco RN Appointment 08/03/2023 Orders Only [facility] [address], [place] [address] Shaunna Nolasco RN related condition, antepartum (Primary Dx) 07/31/2023 Travel 07/31/2023 2:45 PM CDT Office Visit [facility] [place] [address] [facility] [address] [place] [address] Jair Sanchez MD complicated by congenital heart disease, single or unspecified fetus (Primary Dx) 07/31/2023 2:08 PM CDT - 07/31/2023 11:59 PM CDT Hospital [facility] [place] [address] [facility] [address] [place] [address] Jair Sanchez MD Congenital heart defect Discharge Disposition: Home or Self Care 07/14/2023 Office Visit [facility] [address] [place] [phone] Carlos Alberto Leonard MD cardiac disease affecting , single or unspecified fetus (Primary Dx) 07/14/2023 Travel 07/14/2023 7:45 AM CDT - 07/14/2023 11:59 PM CDT Hospital Encounter [facility] [address] [place] [phone] Yifan Aponte MD Anomaly of heart of fetus affecting , antepartum, single or unspecified fetus Discharge Disposition: Home or Self Care 07/07/2023 Orders Only [facility] [address] [place] [phone] Yifan Aponte MD Anomaly of heart of fetus affecting , antepartum, single or unspecified fetus (Primary Dx) 06/29/2023 Travel 06/29/2023 2:45 PM CDT Office Visit [facility] [place] [address] [facility] [address] [place] [address] Swati Hurst MD Congenital heart defect (Primary Dx) 06/29/2023 2:15 PM CDT - 06/29/2023 11:59 PM CDT Hospital Encounter [facility] [place] [address] [facility] [address] [place] [address] Swati Hurst MD abnormality affecting management of mother, single or unspecified fetus Discharge Disposition: Home or Self Care 06/01/2023 Telephone [facility] [address] [place] [address] Kody Davey GC 06/01/2023 Travel 06/01/2023 8:30 AM CDT Office Visit [facility] [place] [address] [facility] [address] [place] [address] Leyda Guzman MD Burn, Martina, MD abnormality affecting management of mother, single or unspecified fetus (Primary Dx) 06/01/2023 7:52 AM CDT - 06/01/2023 11:59 PM CDT Hospital Encounter [facility] [place] [address] [facility] [address] [place] [phone] Leyda Guzman MD Burn, Martina, MD complicated by congenital heart disease, single or unspecified fetus Discharge Disposition: Home or Self Care from Last 3 Months Allergies Active Allergy Reactions Criticality Noted Date Comments Slayton Extract Difficulty breathing,Rash,Shortness Of Breath High 01/03/2020 Medications Medication Sig Dispensed Refills Start Date End Date Status ASPIRIN 81 PO Take 81 mg by mouth daily 03/17/2023 Active Vit-Fe Fumarate-FA ( VITAMIN PO) Take 1 tablet by mouth daily Active calcium carbonate (TUMS) 500 MG chewable tablet Take 1 chew tab by mouth 2 times daily Active Active Problems Patient Care Coordination No te Formatting of this note is d ifferent from the original. [facility] Care Plan: For details of imaging, genetic testing and consultations, please see the maternal medical record: Rosemary Osborne MR#:[id number] Delivery hospital: [facility] DIAGNOSIS: DIAGNOSIS / DIAGNOSES: 1) CHD-coarcation of the aorta GENETIC (and other) TESTING: MaterniT Genome neg PERTINENT MATERNAL CONDITIONS: 1) + Chlamydia 02/16/23 CARE PLAN: 1) Ultrasounds - q 4 08/30 2) Other Imaging - echo 05/19, 07/13, 08/18- no further echoes 3) surveillance - weekly BPP at 32 weeks, Fridays in [place] 4) Relocation - 5) care with - [facility] 6) Labs - (look in media tab / care everywhere for results) Blood type: O+ Ab screen: neg HepBSAg: neg Rubella: Immune RPR: NR HIV: neg Hep C: neg GCT: 88 06/29/13 GBS: PAP: needs PP 7) Vaccines: Tdap- 07/27 Flu Vaccine- 8) PHQ-9: 9) care team and consultations - A) Genetic Counselor - Kody Davey; GC appt 08/30 B) Neonatology - 08/18 Dr. Kapadia C) Social Work - Annabelle D) CV Surg- TBD DELIVERY PLAN: 1) Hospital - [facility] 2) Gestational age - term 3) Route - 4) Notifications in labor - 5) Genetics/specimen collection for baby: Needs consent for cordblood testing ([id number]) 08/30 BABY PLAN: 1) Baby to go to [...] delivery. REFERRING PROVIDER(S): 1) Primary OB Provider: [place] 2) Other Sub-Specialty Provider: 3) Anticipated Pediatric Provider: DEMOGRAPHICS: Patient contact info: [address] [facility] [address] Partner's name: Aries Baby's name: Estimated Date of Delivery Comme nts Yes 10/02/2023 Based on Ultraso und No additional problems on file Immunizations Name Administration Dates Next Due HPV9 12/11/2021,07/11/2021,05/20/2021 Influenza Vaccine >6 months,quad, PF 03/17/2023 MMR 07/19/2019 TDAP (Adacel,Boostrix) 07/28/2023,07/19/2019 Social History Tobacco Use [...] on file Sexual Orientation Not on file Last Filed Vital Signs Vital Sign Reading Time Taken Comments Blood Pressure 118/78 08/19/2023 12:53 PM CDT Pulse 91 08/19/2023 12:53 PM CDT Temperature - - Respiratory Rate 18 08/19/2023 12:53 PM CDT Oxygen Saturation 98% 08/19/2023 12:53 PM CDT Inhaled Oxygen Concentration - - Weight 97.8 kg (215 lb 9.6 oz) 08/19/2023 12:53 PM CDT Height 157.5 cm (5' 2) 08/19/2023 12:53 PM CDT Body Mass Index 39.43 08/19/2023 12:53 PM CDT Plan of Treatment Upcoming Encounters Date Type Department Care Team (Late st Contact Info) Description 08/31/2023 2:15 PM CDT Appointment [facility] [place] [address] [place] [address] Hetal Parra MD [facility] [address] [id number] 08/31/2023 2:45 PM CDT Office Visit [facility] [place] [address] [place], [place] [address] Hetal Parra MD [address] [facility] [address] [place], [place] [address] 08/31/2023 3:00 PM CDT Office Visit [facility] [place] [address] [place], [place] [address] Hetal Parra MD [address] [address] [place] [address] 08/31/2023 3:00 PM CDT Office Visit [facility] [place] [address] [place] [address] Hetal Parra MD [address] [place], [place] [phone] Procedures Procedure Name Priority Date/Time Associated Diagnosis Comments [facility] SINGLE Routine 08/19/2023 12:31 PM CDT related condition, antepartum ECHO COMPLETE Routine 08/19/2023 1 1:23 AM CDT Anomaly of heart of fetus affecting , antepartum, single or unspecified fetus [facility] COMPREHENSIVE SINGLE F/U Routine 07/31/2023 2:45 PM CDT Congenital heart defect ECHO COMPLETE Routine 07/14/2023 1 0:10 AM CDT Anomaly of heart of fetus affecting , antepartum, single or unspecified fetus [facility] US COMPREHENSIVE SINGLE F/U Routine 06/29/2023 2:58 PM CDT abnormality affecting management of mother, single or unspecified fetus [facility] COMPREHENSIVE SINGLE F/U Routine 06/01/2023 8:34 AM CDT complicated by congenital heart disease, single or unspecified fetus from Last 3 Months Results * [facility] Single (08/19/2023 12:31 PM CDT) Anatomical Region Laterality Modality Ultrasound 08/19/2023 12:1 1 PM CDT Impressions 08/19/2023 4:47 PM CDT IMPRESSION ----- 1) Law intrauterine at 33w 5d gestational age. 2) The BPP is reassuring. 3) The amniotic fluid volume appeared normal. Narrative 08/19/2023 4:47 PM CDT ?BPP ----- Pat. Name: ROSEMARY NARAYAN ? Study Date: ??08/19/2023 12:11pm Pat. NO: ??[id number] ?Referring ??MD: GUDELIA SAHNI Site: ??[facility] ? Game Manager: Molly Bernal RDMS : ??2000 ?Age: ?? 22 ----- INDICATION ----- Congenital Heart Defect. METHOD ----- Transabdominal ultrasound examination. View: Sufficient ----- Law . Number of fetuses: 1 DATING ----- ? Date ?Details ?Gest. age ?JAYE LMP ?12/15/2022 ?Cycle: irregular cycle ? 35 w + 2 d ? 09/21/2023 Prior assessment ? 02/16/2023 ? GA: 7 w + 3 d ?33 w + 5 d ? 10/02/2023 Assigned dating ?Dating performed on 05/08/2023, based on the prior assessment (on 02/16/2023) ?33 w + 5 d ? 10/02/2023 GENERAL EVALUATION ----- Cardiac activity present. FHR 129 bpm. movements visualized. Presentation cephalic. Placenta posterior, no previa > 2 cm from internal os . Umbilical cord previously studied. AMNIOTIC FLUID ASSESSMENT ----- Amount of AF: normal MVP 4.2 cm BIOPHYSICAL PROFILE ----- 2: breathing movements 2: Gross body movements 2: tone 2: Amniotic fluid volume /8 Biophysical profile score Interpretation: normal RECOMMENDATION ----- We discussed the findings on today's ultrasound with the patient. Continue surveillance with weekly BPP. Return to primary provider for continued care. Thank-you for the opportunity to participate in the care of this patient. If you have questions regarding today's evaluation or if we can be of further service, please contact the [facility]. anomalies may be present but not detected Procedure Note Leyda Guzman MD - 08/19/2023 BPP ----- Pat. Name: ROSEMARY NARAYAN Study Date: 08/19/2023 12:11pm Pat. NO: [id number] Referring MD: GUDELIA SAHNI Site: [facility] Game Manager: Molly Bernal RDMS : 2000 Age: 22 ----- INDICATION ----- Congenital Heart Defect. METHOD ----- Transabdominal ultrasound examination. View: Sufficient ----- Law . Number of fetuses: 1 DATING ----- DateDetailsGest. age JAYE LMP 12/15/2022ycle: irregular cycle35 w + 2 d 09/21/2023 Prior assessment 02/16/2023 GA: 7 w +3 d33 w + 5 d 10/02/2023 Assigned dating Dating performed on 05/08/2023, based onthe prior assessment (on 02/16/2023) 33 w + 5 10/02/2023 GENERAL EVALUATION ----- Cardiac activity present. FHR 129 bpm. movements visualized. Presentation cephalic. Placenta posterior, no previa > 2 cm from internal os . Umbilical cord previously studied. AMNIOTIC FLUID ASSESSMENT ----- Amount of AF: normal MVP 4.2 cm BIOPHYSICAL PROFILE ----- 2: breathing movements 2: Gross body movements 2: tone 2: Amniotic fluid volume 8/8 Biophysical profile score Interpretation: normal RECOMMENDATION ----- We discussed the findings on today's ultrasound with the patient. Continue surveillance with weekly BPP. Return to primary provider for continued care. Thank-you for the opportunity to participate in the care of this patient.If you have questions regarding today's evaluation or if we can be offurther service, please contact the [facility] Center. anomalies may be present but not detected IMPRESSION ----- 1) Law intrauterine at 33w 5d gestational age. 2) The BPP is reassuring. 3) The amniotic fluid volume appeared normal. Jair Sanchez MD Ari [facility] US ORDERABL ES * ECHO COMPLETE (08/19/2023 11:23 AM CDT) Anatomical Region Laterality Modality Ultrasound 08/19/2023 10:5 5 AM CDT Narrative 08/20/2023 8:33 AM CDT [id number]^HORACIO^CARLOS ALBERTO ? Study ID: [id number] ?[facility] ?[facility] ?[facility] ?[place] [address] ? Echocardiogram Name: ROSEMARY NARAYAN Study Date: 08/19/2023 10:55 AM ?Patient Location: [facility] Gender: Female ? Patient Class: Outpatient : 2000 ?Age: 22 yrs Ordering Provider: CARLOS ALBERTO LEONARD Referring Provider: FRANCIA GILMAN Performed By: Fabiola Sahni Physician: Yonatan Black MD Reason For Study: Anomaly of heart of fetus affecting , antepartum, singl Data: Number of fetuses: This is a law gestation. Due date: 10/02/2023. Gestational age: 33w5d. Delivery at: [facility]. Specific Indication: echocardiogram performed for suspected coarctation of the aorta. CONCLUSIONS Shone's complex. Coarctation of the aorta with [...] Normal pulmonary venous flow profile. No effusion. The abnormal results of the echocardiogram were explained to the patient. Delivery is recommended at [facility]. Cardiology consultation and echocardiogram is recommended immediately after delivery. Technical Information: A complete two dimensional, spectral and color Doppler echocardiogram is performed. The study quality is reasonable. position and segmental anatomy: The fetus in vertex position. The heart is in left chest. [...] to the left atrium. There is laminar iylkt-df-ivaw shunting across the foramen ovale. Atrioventricular valves: The tricuspid valve is normal in appearance and motion. There is no tricuspid insufficiency. The mitral valve annulus Z-score is -4.7. 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 The mitral valve annulus measures 5.6 mm. Moderate thickening of the mitral valve leaflets. There is no mitral valve insufficiency. Ventricles [...] flow in the ascending aorta. 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 There is coarctation of the aorta. There is diastolic flow reversal in the distal aortic arch. Effusions and extracardiac findings: No pericardial effusion. No hydrops. cardiac rhythm: heart rate is regular at 129 bpm. Doppler: There is normal flow in the ductus venosus, umbilical artery and umbilical vein. echocardiography cannot rule out small atrial or ventricular septal defects, persistent ductus arteriosus, mild coarctation of the aorta, partial anomalous pulmonary venous return, minor anatomic valve anomalies or coronary artery anomalies. Reading Physician: ?Yonatan Black MD 08/20/2023 08:33 AM Procedure Note Yonatan Black MD - 08/20/2023 [id number]^HORACIO^CARLOS ALBERTO Study ID:[id number] [facility] [address] [place] [address] Echocardiogram Name: ROSEMARY NARAYAN Study Date: 08/19/2023 10:55 AM Patient Location:[facility] Gender: Female Patient Class:Outpatient : 2000 Age: 22 yrs Ordering Provider: CARLOS ALBERTO LEONARD Referring Provider: FRANCIA GILMAN Performed By: Fabiola Sahni Physician: Yonatan Black MD Reason For Study: Anomaly of heart of fetus affecting ,antepartum, singl Data: Number of fetuses: This is a law gestation. Duedate: 10/02/2023. Gestational age: 33w5d. Delivery at: [facility]. Specific Indication: echocardiogram performed for suspected coarctation of the aorta. CONCLUSIONS Shone's complex. Coarctation of the aorta with posterior shelf andretrograde diastolic flow in the transverse aorta. 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 The left ventricle is narrow but reaches the cardiacapex. Normal aortic valve annulus dimension with likely bicuspid leaflets.Normal right ventricular size and systolic function; no tricuspid valve regurgitation. Normal left ventricular systolic function. Normal mitralvalve inflow profile suggests reasonable left ventricular compliance. Normal pulmonary venous flow profile. No effusion. The abnormal results of the echocardiogram were explained to the patient. Delivery is recommended at [facility]. Cardiology consultation and echocardiogram is recommended immediately afterdelivery. Technical Information: A complete two dimensional, spectral and color Doppler fetalechocardiogram is performed. The study quality is reasonable. position and segmental anatomy: The fetus in vertex position. The heart is in left chest. [...] in to the left atrium. There is pjqpxnbrykmu-xg-xawp shunting across the foramen ovale. Atrioventricular valves: The tricuspid valve is normal in appearance and motion. There is notricuspid insufficiency. The mitral valve annulus Z-score is -4.7. The mitralvalve annulus is hypoplastic. The mitral valve annulus measures 5.6 mm.Moderate thickening of the mitral valve leaflets. There is no mitral valve insufficiency. Ventricles [...] flow in the ascending aorta. 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 There is coarctation of the aorta. There isdiastolic flow reversal in the distal aortic arch. Effusions and extracardiac findings: No pericardial effusion. No hydrops. cardiac rhythm: heart rate is regular at 129 bpm. Doppler: There is normal flow in the ductus venosus, umbilical artery andumbilical vein. echocardiography cannot rule out small atrial or ventricularseptal defects, persistent ductus arteriosus, mild coarctation of the aorta,partial anomalous pulmonary venous return, minor anatomic valve anomalies orcoronary artery anomalies. Reading Physician: Yonatan Black MD 08/20/2023 08:33 AM Carlos Alberto Leonard MD CV PEDS ECHO ORDERAB LES * MFM US Comprehensive Single F/U (07/31/2023 [...] ? Study Date: ??07/31/2023 2:19pm Pat. NO: ??[id number] ?Referring ??MD: FRANCIA GILMAN Site: ??[facility] ? Game Manager: Justyna Calixto RDMS : ??2000 ?Age: ?? [...] lb 11 ? 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 4.0 ? mm CM ?5.2 ? mm ANATOMY ----- The following structures appear abnormal: Heart / Thorax ?4-chamber view: See Echo report by [facility] from 05/20/2023. LVOT view. 3-vessel view. 9-qnlknb-zmdolxx view. The following structures appear normal: Head [...] We will plan to reassess growth at [facility] in 4 weeks. Return to primary provider [...] NARAYAN Study Date: 07/31/2023 2:19pm Pat. 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 LVOT view. 3-vessel view.8-vynytr-dyrhnow view. The following structures appear normal: Head [...] We will plan to reassess growth at [facility] in 4weeks. Return to primary provider for [...] fluid volume appeared normal. Swati Hurst MD [facility] US ORDERABLE S * ECHO COMPLETE (07/14/2023 10:10 AM CDT) Anatomical Region Laterality Modality Echocardiography 07/14/2023 8:18 AM CDT Narrative 07/14/2023 10:23 AM CDT [id number]^APONTE^YIFAN ? Study ID: [id number] ?[facility] ?[facility] ?[address] ?[place] [address] ? Echocardiogram Name: ROSEMARY NARAYAN Study Date: 07/14/2023 08:18 AM ? Patient Location: [facility] Gender: Female ?Patient Class: Outpatient : 2000 ? Age: 22 yrs Ordering Provider: YIFAN APONTE Referring Provider: YIFAN APONTE Performed By: Fabiola Sahni Reading Physician: Carlos Alberto Leonard MD Reason For Study: Anomaly of heart [...] blood. pressure gradient. Delivery is recommended at [facility]. Cardiology consultation and echocardiogram is recommended [...] to the left atrium. There is laminar yqpwz-so-remm shunting across the foramen ovale. Atrioventricular valves: [...] coronary artery anomalies. Reading Physician: ?Carlos Alberto Leonard MD 07/14/2023 10:23 AM Procedure Note Carlos Alberto Leonard MD - 07/14/2023 [id number]^ASTON^YIFAN Study ID:[id number] [facility] [address] [place] [address] Echocardiogram Name: ROSEMARY NARAYAN Study Date: 07/14/2023 08:18 AM Patient Location: [facility] Gender: Female Patient Class:Outpatient : 2000 Age: 22 yrs Ordering Provider: YIFAN APONTE Referring Provider: YIFAN APONTE Performed By: Fabiola Sahni Physician: Carlos Alberto Leonard MD Reason For Study: Anomaly of heart [...] limb blood. pressure gradient. Delivery is recommended [facility]. Cardiology consultation and echocardiogram isrecommended immediately [...] in to the left atrium. There is haxtbluymkxc-ty-anwn shunting across the foramen ovale. Atrioventricular valves: [...] orcoronary artery anomalies. Reading Physician: Carlos Alberto Leonard MD 07/14/2023 10:23 AM Yifan Aponte MD CV PEDS ECHO ORDERAB LES from Last 3 Months Care Teams Refueling Rampman Relationship Specialty Start Date End Date No Ref-Primary, Physician PCP - General 05/08/23
--- OUTSIDE RECORDS SUMMARY | 2023-08-25 13:58 | XMS_ITS | Clinical Summary ---
Author Organization [place] Address [address] [place] [address] Care Team Providers Care Plan Manager Name Role Phone No Ref-Primary, Physician Primary Care Provider Allergies Active Allergy Reactions Criticality Noted Date Comments Malone Extract Difficulty breathing,Rash,Shortness Of Breath High 01/03/2020 [...] see the maternal medical record: Rosemary An MR#:[id number] Delivery hospital: [facility] DIAGNOSIS: DIAGNOSIS / DIAGNOSES: 1) CHD-coarcation of the aorta GENETIC (and other) TESTING: MaterniT Genome neg PERTINENT MATERNAL CONDITIONS: 1) + Chlamydia 02/16/23 CARE PLAN: 1) Ultrasounds - q 4 08/30 2) Other Imaging - echo 05/19, 07/13, 08/18- no further echoes 3) surveillance - weekly BPP at 32 weeks, Fridays in [place] 4) Relocation - 5) care with - [place] 6) Labs - (look in media tab [...] Surg- TBD DELIVERY PLAN: 1) Hospital - [facility] 2) Gestational age - term 3) Route - 4) Notifications in labor - 5) Genetics/specimen collection for baby: Needs consent for cordblood testing ([id number]) 08/30 BABY PLAN: 1) Baby to go [...] delivery. REFERRING PROVIDER(S): 1) Primary OB Provider: [facility] 2) Other Sub-Specialty Provider: 3) Anticipated Pediatric Provider: DEMOGRAPHICS: Patient contact info: [address] [facility] [address] Partner's name: Aries Baby's name: Estimated Date of Delivery Comme nts Yes 10/02/2023 Based on Ultraso und No additional problems on file Encounters Date Type Department Care Team Description 08/19/2023 12:15 PM CDT Office Visit [facility] Maternal Medicine [address] [place] [address] Leyda Guzman MD complicated by congenital heart disease, single or unspecified fetus (Primary Dx) 08/19/2023 11:45 AM CDT - 08/19/2023 11:59 PM CDT Hospital Encounter [facility] Maternal Medicine [place] [address] [place] [address] Leyda Guzman MD related condition, antepartum Discharge Disposition: Home or Self Care 08/19/2023 10:00 AM CDT Office Visit [facility] Maternal Medicine [address] [place] [address] Gudelia Sahni CNM related condition, antepartum 08/19/2023 9:30 AM CDT Office Visit [facility] Maternal Medicine [facility] [address] [place] [address] Gudelia Sahni CNM Supervision of high risk in third trimester (Primary Dx); complicated by congenital heart disease, single or unspecified fetus 08/19/2023 9:25 AM CDT - 08/19/2023 11:44 AM CDT Hospital Encounter [facility] [address] [place] [phone] Leyda Guzman MD Urmfmusfet Anomaly of heart of fetus affecting , antepartum, single or unspecified fetus Discharge Disposition: Home or Self Care 08/19/2023 Office Visit [facility] Services - Heart & Vascular Service Line [address] [place] [phone] Yonatan Black MD cardiac disease affecting , single or unspecified fetus (Primary Dx) 08/19/2023 Documentation Only [facility] CASE MANAGEMENT [phone] Edda Ohara, TRUCK DRIVER TEAMSTER 08/19/2023 Orders Only [facility] [address] [place] [phone] Carlos Alberto Leonard MD Anomaly of heart of fetus affecting , antepartum, single or unspecified fetus (Primary Dx) 08/19/2023 Travel 08/17/2023 MyC Medical Advice [facility] [address] [place] [phone] Soumya Rodriguez LPN 08/04/2023 Orders Only [facility] Maternal Medicine [facility] [address] [place] [address] Louise Haley GC Abnormal ultrasound (Primary Dx) 08/04/2023 Telephone [facility] Maternal Medicine [facility] [place] [address] [place] [address] Shaunna Nolasco RN Appointment 08/04/2023 Orders Only [facility] Maternal Medicine [facility] [place] [address] [place] [address] Shaunna Nolasco RN related condition, antepartum (Primary Dx) 08/03/2023 Telephone [facility] Maternal Medicine [facility] [address] [place] [address] Shaunna Nolasco RN Appointment 08/03/2023 Orders Only [facility] Maternal Medicine [facility] [address] [place] [address] Shaunna Nolasco RN related condition, antepartum (Primary Dx) 07/31/2023 2:45 PM CDT Office Visit [facility] Maternal Medicine [facility] [address] [facility] [facility] [place] [phone] Jair Sanchez MD complicated by congenital heart disease, single or unspecified fetus (Primary Dx) 07/31/2023 2:08 PM CDT - 07/31/2023 11:59 PM CDT Hospital Encounter [facility] Medicine [facility] [address] [facility] [address] [place] [address] Jair Sanchez MD Congenital heart defect Discharge Disposition: Home or Self Care 07/31/2023 Travel 07/14/2023 7:45 AM CDT - 07/14/2023 11:59 PM CDT Hospital Encounter [facility] [address] [place] [phone] Yifan Aponte MD Anomaly of heart of fetus affecting , antepartum, single or unspecified fetus Discharge Disposition: Home or Self Care 07/14/2023 Office Visit [facility] [address] [place] [phone] Carlos Alberto Leonard MD cardiac disease affecting , single or unspecified fetus (Primary Dx) 07/14/2023 Travel 07/07/2023 Orders Only [facility] [address] [facility] [address] [place] [address] Yifan Aponte MD Anomaly of heart of fetus affecting , antepartum, single or unspecified fetus (Primary Dx) 06/29/2023 2:45 PM CDT Office Visit [facility] Maternal Medicine [facility] [address] [place] [address] Swati Hurst MD Congenital heart defect (Primary Dx) 06/29/2023 2:15 PM CDT - 06/29/2023 11:59 PM CDT Hospital Encounter [facility] Medicine [facility] [address] [place] [address] Swati Hurst MD abnormality affecting management of mother, single or unspecified fetus Discharge Disposition: Home or Self Care 06/29/2023 Travel 06/01/2023 8:30 AM CDT Office Visit [facility] Medicine [facility] [address] [place] [address] Leyda Guzman MD Burn, Martina, MD abnormality affecting management of mother, single or unspecified fetus (Primary Dx) 06/01/2023 7:52 AM CDT - 06/01/2023 11:59 PM CDT Hospital Encounter [facility] Maternal Medicine [facility] [address] [place] [address] Leyda Guzman MD Burn, Martina, MD complicated by congenital heart disease, single or unspecified fetus Discharge Disposition: Home or Self Care 06/01/2023 Telephone [facility] Maternal Medicine [facility] [address] [place] [address] Kody Davey GC 06/01/2023 Travel from Last 3 Months Immunizations Name Administration Dates Next Due HPV9 [...] Info) Description 08/31/2023 2:15 PM CDT Appointment [facility] M[facility] Medicine [facility] [place] [address] [place] [address] Hetal Parra MD [facility] [address] [address] 08/31/2023 2:45 PM CDT Office Visit [facility] M[facility] Medicine [facility] [place] [address] [place], [place] [phone] Hetal Parra MD [address] [facility] [address] [place], [place] [phone] 08/31/2023 3:00 PM CDT Office Visit [facility] M[facility] Medicine [facility] [place] [address] [place], [place] [phone] Hetal Parra MD [address] [place] [address] [place], [place] [address] 08/31/2023 3:00 PM CDT Office Visit [facility] Maternal Medicine [facility] [address] [place], [place] [address] Hetal Parra MD [address] [facility] [address] [place] [address] Health Maintenance Due Date Last Done Comments [...] SCREENING 05/20/2022 05/20/2021 MATERNAL SCREENING DISCUSSION 03/06/2023 OBGCT (OB) 06/12/2023 GROUP B STREP SCREENING 09/04/2023 DTAP/TDAP/TD IMMUNIZATION (3 - Td or Tdap) 01/28/2024 07/28/2023, 07/19/2019 PAP 09/12/2025 09/12/2022, 09/12/2022 HPV IMMUNIZATION Completed 12/11/2021, 07/11/2021, 05/20/2021 COVID-19 Vaccine Completed 03/17/2023, 05/14/2020, 04/16/2020 INFLUENZA VACCINE Completed 03/17/2023 PHQ-2 (once per calendar year) Completed 08/19/2023, 08/19/2023 IPV IMMUNIZATION Aged Out No longer e [...] Procedure Name Priority Date/Time Associated Diagnosis Comments [facility] SINGLE Routine 08/19/2023 12:31 PM CDT related condition, antepartum ECHO COMPLETE Routine 08/19/2023 1 1:23 AM CDT Anomaly of heart of fetus affecting , antepartum, single or unspecified fetus [facility] COMPREHENSIVE SINGLE F/U Routine 07/31/2023 2:45 PM CDT Congenital heart defect ECHO COMPLETE Routine 07/14/2023 1 0:10 AM CDT Anomaly of heart of fetus affecting , antepartum, single or unspecified fetus [facility] US COMPREHENSIVE SINGLE F/U Routine 06/29/2023 2:58 PM CDT abnormality affecting management of mother, single or unspecified fetus [facility] COMPREHENSIVE SINGLE F/U Routine 06/01/2023 8:34 AM CDT complicated by congenital heart disease, single or unspecified fetus from Last 3 Months Results * [facility] Single (08/19/2023 12:31 PM CDT) Anatomical Region Laterality Modality Ultrasound 08/19/2023 12:1 1 PM CDT Impressions 08/19/2023 4:47 PM CDT IMPRESSION ----- 1) Law intrauterine at 33w 5d gestational age. 2) The BPP is reassuring. 3) The amniotic fluid volume appeared normal. Narrative 08/19/2023 4:47 PM CDT ?BPP ----- Pat. Name: ROSEMARY NARAYAN ? Study Date: ??08/19/2023 12:11pm Pat. NO: ??[id number] ?Referring ??MD: GUDELIA SAHNI Site: ??[facility] ? Insurance Application Investigator: Molly Bernal RDMS : ??2000 ?Age: ?? [...] MD - 08/19/2023 BPP ----- Pat. Name: WILFRIDO ANROSEMARY Study Date: 08/19/2023 12:11pm Pat. NO: [id number] Referring MD: GUDELIA SAHNI Site: [facility] Insurance Application Investigator: Molly Bernal RDMS : 2000 Age: 22 [...] fluid volume appeared normal. Jair Sanchez MD IMAri M US ORDERABL ES * ECHO COMPLETE (08/19/2023 11:23 AM CDT) Anatomical Region Laterality Modality Ultrasound 08/19/2023 10:5 5 AM CDT Narrative 08/20/2023 8:33 AM CDT [id number]^HORACIO^CARLOS ALBERTO ? Study ID: [id number] ?[facility] ?[facility] ?[address] ?[place] [address] ? Echocardiogram Name: ROSEMARY NARAYAN Study Date: 08/19/2023 10:55 AM ?Patient Location: [facility] Gender: Female ? Patient Class: Outpatient : 2000 ?Age: 22 yrs Ordering Provider: CARLOS ALBERTO LEONARD Referring Provider: FRANCIA GILMAN Performed By: Fabiola Sahni Physician: Yonatan Black MD Reason For Study: Anomaly of heart of fetus affecting , antepartum, singl Data: Number of fetuses: This is a law gestation. Due date: 10/02/2023. Gestational age: 33w5d. Delivery at: [place]. Specific Indication: echocardiogram performed for suspected coarctation [...] to the patient. Delivery is recommended at [facility]. Cardiology consultation and echocardiogram is recommended immediately [...] to the left atrium. There is laminar piwtc-oz-cxvh shunting across the foramen ovale. Atrioventricular valves: [...] Procedure Note Yonatan Black MD - 08/20/2023 [id number]^ERLIN Study ID:[id number] [facility] [address] [address] Echocardiogram Name: ROSEMARY NARAYAN Study Date: 08/19/2023 10:55 AM Patient Location:[facility] Gender: Female Patient Class:Outpatient : 2000 Age: 22 yrs Ordering Provider: CARLOS ALBERTO LEONARD Referring Provider: FRANCIA GILMAN Performed By: Fabiola Sahni Physician: Yonatan Black MD Reason For Study: Anomaly of heart of fetus affecting ,antepartum, singl Data: Number of fetuses: This is a law gestation. Dued[place]: 10/02/2023. Gestational age: 33w5d. Delivery at: [place]. Specific Indication: echocardiogram performed for suspected coarctation [...] to the patient. Delivery is recommended at [facility]. Cardiology consultation and echocardiogram is recommended immediately [...] in to the left atrium. There is iymlaopbnybl-tx-xnfc shunting across the foramen ovale. Atrioventricular valves: [...] ? Study Date: ??07/31/2023 2:19pm Pat. NO: ??[id number] ?Referring ??MD: FRANCIA GILMAN Site: ??[facility] ? Insurance Application Investigator: Justyna Calixto RDMS : ??2000 ?Age: ?? [...] Biometry: BPD ?80.2 ?mm ? 32w 1d ?[place]onnell OFD ?98.4 ?mm ? 29w 1d ?Nicolaides HC ?284.4 ?mm ?31w 2d ?Hadlock Cerebellum tr ?38.5 ? mm ?32w 5d ?Nicolaides AC ?271.1 ?mm ?31w 1d ?53% ?Hadlock Femur ?57.2 ? mm ?30w 0d ?Hadlock Weight Calculation: EFW ? 1,661 ?g ? 35% ?Hadlock EFW (lb,oz) ? 3 lb 11 ? oz EFW by ?Hadlock ([id number]) Head / Face / Neck Biometry: Hat Band Attacher ? 4.0 ? mm CM ?5.2 ? mm ANATOMY ----- The following structures appear abnormal: Heart / Thorax ?4-chamber view: See Echo report by [facility] from 05/20/2023. LVOT view. 3-vessel view. 9-houuas-omxrvcw view. The following structures appear normal: Head [...] We will plan to reassess growth at [facility] in 4 weeks. Return to primary [...] NARAYAN Study Date: 07/31/2023 2:19pm Pat. NO: [id number] Referring MD: FRANCIA GILMAN Site: [facility] Insurance Application Investigator: Justyna Calixto RDMS : 2000 Age: 22 [...] 3 lb 11 oz EFW by Hadlock (PQR-QZ-HY-FL) Head / Face / Neck Biometry: Hat Band Attacher 4.0 mm CM 5.2 mm ANATOMY ----- The following structures appear abnormal: Heart / Thorax 4-chamber view: See Echo reportby [facility] from 05/20/2023. LVOT view. 3-vessel view.4-salexf-muqqszv view. The following structures appear normal: Head [...] amniotic fluid volume appeared normal. Swati WAHL M US ORDERABLE S * ECHO COMPLETE (07/14/2023 10:10 AM CDT) Anatomical Region Laterality Modality Echocardiography 07/14/2023 8:18 AM CDT Narrative 07/14/2023 10:23 AM CDT [id number]^APONTE^YIFAN ? Study ID: [id number] ?[facility] ?[facility] ?[address] ?[place] [address] ? Echocardiogram Name: ROSEMARY NARAYAN Study Date: 07/14/2023 08:18 AM ? Patient Location: [facility] Gender: Female ?Patient Class: Outpatient : [...] blood. pressure gradient. Delivery is recommended at [facility]. Cardiology consultation and echocardiogram is recommended immediately [...] to the left atrium. There is laminar vhgnt-dq-rzqn shunting across the foramen ovale. Atrioventricular valves: [...] Note Carlos Alberto Leonard MD - 07/14/2023 [id number]^ASTON^YIFAN Study ID:[id number] [facility] [address] [address] Echocardiogram Name: ROSEMARY NARAYAN Study Date: 07/14/2023 08:18 AM [facility] [...] limb blood. pressure gradient. Delivery is recommended [facility]. Cardiology consultation and echocardiogram isrecommended immediately after [...] in to the left atrium. There is gepiymezygxh-ma-hjzo shunting across the foramen ovale. Atrioventricular valves: [...] LES from Last 3 Months Care Teams Plan Manager Relationship Specialty Start Date End Date No Ref-Primary, Physician PCP - General 05/08/23
--- OUTSIDE RECORDS SUMMARY | 2023-08-25 13:59 | XMS_ITS | Encounter Summary ---
Author Organization [place] Address [address] [facility] [place] [address] Care Team Providers Care Customer Service Voice Name Role Phone No Ref-Primary, Physician Primary [...] Info) Description 08/31/2023 2:15 PM CDT Appointment [facility] M[facility] [place] [address] [place] [phone] Hetal Parra MD [address] [address] 08/31/2023 2:45 PM CDT Office Visit [facility] [place] [address] [place], [place] [address] Hetal Parra MD [address] [address] 08/31/2023 3:00 PM CDT Office Visit [facility] [place] [address] [place] [address] Hetal Parra MD [address] [facility] [address] [place], [place] [address] 08/31/2023 3:00 PM CDT Office Visit [facility] Maternal Medicine [facility] [address] [place] [address] Hetal Parra MD [address] [address] documented as of this encounter Visit Diagnoses Not on filedocumented in this encounter Care Teams Customer Service Voice Relationship Specialty Start Date End Date No Ref-Primary, Physician PCP - General 05/08/23 documented as of this encounter
--- OUTSIDE RECORDS SUMMARY | 2023-08-25 13:59 | XMS_ITS | Encounter Summary ---
Author Organization [place] Address [address] [facility] [place] [address] Care Team Providers Care Applied Biology Professor Name Role Phone No Ref-Primary, Physician Primary Care Provider Encounter Details Date Type Department Care Team (Late st Contact Info) Description 08/19/2023 Documentation Only [facility] CASE MANAGEMENT [phone] Edad Ohara LICSW Social History Tobacco Use Types Packs/Day Years [...] as of this encounter Progress Notes * Edda Ohara LICSW - 08/19/2023 10:28 AM CDT ADAMARIS met with patient, her partner, and Amusement Or Recreation Card Checker today in the [facility] for a NICU Consult. Rosemary knows she is with a boy and they have chosen to name him Aries after his father. Amusement Or Recreation Card Checker discussed what is known medically at this time about Aries. Answered parents questions, and discussed what to expect over the first couple of days after Aries is born and admitted to the NICU. ADAMARIS introduced self and role and discussed how ADAMARIS supports families who have babies in the NICU. Also discussed possible options for lodging as Rosemary and Aries live in [place], [place]. ADAMARIS made plan to meet with Rosemary after baby Aries is born to complete a psychosocial assessment and provide supportive intervention. ADAMARIS provided Rosemary and Aries with contact information and encouraged them to be in touch with any questions or needs prior to the of their baby. No additional concerns, questions, or needs identified today. KALEB Holcomb, ROSALINDA Maternal and Child Health Hvac Technician Residential M-Iam 08:00-16:30 on [employer] Office [email or web address] After hours social work can be reached via [employer] @ [employer] After Hours Cell Coverer 1620 to 08 Weekend on-site social work can be reached via [employer] @ [employer] Weekend Onsite 08 to 1630 documented in this encounter Plan of Treatment Upcoming Encounters Date Type Department Care Team (Late st Contact Info) Description 08/31/2023 2:15 PM CDT Appointment [facility] Maternal Medicine [facility] [address] [place] [address] Hetal Parra MD [address] [address] 08/31/2023 2:45 PM CDT Office Visit [facility] Maternal Medicine [facility] [address] [place] [address] Hetal Parra MD [address] [address] 08/31/2023 3:00 PM CDT Office Visit [facility] Medicine [facility] [address] [place] [address] Hetal Parra MD [address] [facility] [address] 08/31/2023 3:00 PM CDT Office Visit [facility] Maternal Medicine [facility] [place] [address] [place] [address] Hetal Parra MD [address] [address] [place] [address] documented as of this encounter Visit Diagnoses Not on filedocumented in this encounter Additional Health Concerns Assessment Noted Time PHQ-9 Depression Total Score: 0 08/19/19 24 12:54 PM CDT documented as of this encounter Care Teams Applied Biology Professor Relationship Specialty Start Date End Date No Ref-Primary, Physician PCP - General 05/08/23 documented as of this encounter
--- OUTSIDE RECORDS SUMMARY | 2023-08-25 13:59 | XMS_ITS | Encounter Summary ---
Author Organization [place] Address [facility] [place] [place] [address] Care Team Providers Care Senior Quality Assurance Specialist Name Role Phone No Ref-Primary, Physician Primary Care Provider Encounter Details Date Type Department Care Team (Late st Contact Info) Description 08/17/2023 MyC Medical Advice [facility] [address] [place] [address] Soumya Rodriguez LPN Social History Tobacco Use Types Packs/Day Years [...] Info) Description 08/31/2023 2:15 PM CDT Appointment [facility] M[facility] Medicine [facility] [place] [address] [place] [address] Hetal Parra MD [address] [facility] [address] [place] [address] 08/31/2023 2:45 PM CDT Office Visit [facility] [place] [address] [place] [address] Hetal Parra MD [address] [address] [place] [address] 08/31/2023 3:00 PM CDT Office Visit [facility] [place] [address] [place] [address] Hetal Parra MD [address] [facility] [address] [place] [address] 08/31/2023 3:00 PM CDT Office Visit [facility] Maternal Medicine [facility] [address] [place] [address] Hetal Parra MD [address] [address] documented as of this encounter Visit Diagnoses Not on filedocumented in this encounter Care Teams Senior Quality Assurance Specialist Relationship Specialty Start Date End Date No Ref-Primary, Physician PCP - General 05/08/23 documented as of this encounter
--- OUTSIDE RECORDS SUMMARY | 2023-08-25 13:59 | XMS_ITS | Encounter Summary ---
Author Organization [place] Address [address] [place] [address] Care Team Providers Care Special Makeup Fx Artist Instructor Name Role Phone No Ref-Primary, Physician Primary Care Provider Reason for Referral * (Routine) - Closed Specialty Diagnoses / Procedures Referred By Contac t Referred To Contact Cardiology Diagnoses Anomaly of heart of fetus affecting , antepartum, single or unspecified fetus Procedures Echo (TTE) Complete Yifan Clancy MD [address] [place] [address] [facility] [address] [place] [phone] Referral ID Status Reason Start Date Expiration Date Visits Re quested Visits Authorized [id number] Closed 07/14/2023 07/06/2024 1 1 Reason for Visit * (Routine) - Closed Specialty Diagnoses / Procedures Referred By Contac t Referred To Contact Cardiology Diagnoses Anomaly of heart of fetus affecting , antepartum, single or unspecified fetus Procedures Echo (TTE) Yifan Gamez MD [address] [place] [address] [facility] [address] [place] [phone] Referral ID Status Reason Start Date Expiration Date Visits Re quested Visits Authorized [id number] Closed 07/14/2023 07/06/2024 1 1 Encounter Details Date Type Department Care Team (Latest Contact Info) Description 07/14/2023 7:45 AM CDT - 07/14/2023 11:59 PM CDT Hospital Encounter [facility] [address] [place] [phone] Yifan Clancy MD [address] [place] [phone] Anomaly of heart of fetus affecting , [...] on file documented as of this encounter Medications at Time of Discharge Medication Sig Dispensed Refills Start Date End Date ASPIRIN 81 PO Take 81 mg by mouth daily 03/17/2023 documented as of this encounter Plan of Treatment Upcoming Encounters Date Type Department Care Team (Late st Contact Info) Description 08/31/2023 2:15 PM CDT Appointment [facility] [place] [address] [place] [phone] Hetal Parra MD [address] [place] [phone] 08/31/2023 2:45 PM CDT Office Visit [facility] [place] [address] [place], [place] [address] Hetal Parra MD [address] [place] [address] [phone] 08/31/2023 3:00 PM CDT Office Visit [facility] [place] [address] [place], [place] [address] Hetal Parra MD [address] [place] [address] 08/31/2023 3:00 PM CDT Office Visit [facility] [address] [place] [address] Hetal Parra MD [address] [place], [place] [address] documented as of this encounter Procedures Procedure Name Priority Date/Time Associated Diagnosis Comments ECHO COMPLETE Routine 07/14/2023 1 0:10 AM CDT Anomaly of heart of fetus affecting , antepartum, single or unspecified fetus documented in this encounter Results * ECHO COMPLETE (07/14/2023 10:10 AM CDT) Anatomical Region Laterality Modality Echocardiography 07/14/2023 8:18 AM CDT Narrative 07/14/2023 10:23 AM CDT [id number]^CLANCY^YIFAN ? Study ID: [id number] ?[facility] ?[facility] ?[address] ?[place] [address] ? Echocardiogram Name: RA NARAYAN Study Date: [...] blood. pressure gradient. Delivery is recommended at [facility]. Cardiology consultation and echocardiogram is recommended immediately [...] to the left atrium. There is laminar shjqz-dy-rgdd shunting across the foramen ovale. Atrioventricular valves: [...] Note Carlos Alberto Ott MD - 07/14/2023 [id number]^CLANCY^YIFAN Study ID:[id number] [facility] [place] [address] [place] [address] Echocardiogram Name: RA NARAYAN Study Date: 07/14/2023 08:18 AM Patient Location: [facility] Gender: Female Patient Class:Outpatient : [...] pressure gradient. Delivery is recommended [facility]. Cardiology consultation and echocardiogram isrecommended immediately after [...] in to the left atrium. There is yiosgdxihfkt-ay-hwit shunting across the foramen ovale. Atrioventricular valves: [...] fetus documented in this encounter Care Teams Special Makeup Fx Artist Instructor Relationship Specialty Start Date End Date No Ref-Primary, Physician PCP - General 05/08/23 documented as of this encounter
--- OUTSIDE RECORDS SUMMARY | 2023-08-25 13:59 | XMS_ITS | Encounter Summary ---
Author Organization [place] Address [address] [place] [address] Care Team Providers Care Deputy Sheriff Generalist/Bailiff Name Role Phone No Ref-Primary, Physician Primary Care Provider Reason for Visit * Reason Comments Consult NICU consult: CHD * Consultation (Routine: Next available opening) - Pending Review Specialty Diagnoses / Procedures Referred By Contac t Referred To Contact Diagnoses related condition, antepartum Jair Sanchez MD [address] [address] Referral ID Status Reason Start Date Expiration Date V isits Requested Visits Authorized [id number] Pending Review 08/04/2023 08/03/2024 2 2 Encounter Details Date Type Department Care Team (Late st Contact Info) Description 08/19/2023 10:00 AM CDT Office Visit [facility] [place] [address] [place] [phone] Sue Sahni CNM [address] [facility] [address] [place] [address] related condition, antepartum Social History Tobacco Use Types Packs/Day Years [...] on file documented as of this encounter Nursing Notes * Shaunna Nolasco RN - 08/19/2023 10:00 AM CDT NICU consult with Dr. Kapadia due to c/b CHD. Shaunna Nolasco RN documented in this encounter Plan of Treatment Upcoming Encounters Date Type Department Care Team (Late st Contact Info) Description 08/31/2023 2:15 PM CDT Appointment [facility] [address] [place] [phone] Hetal Parra MD [address] 1436[address] 08/31/2023 2:45 PM CDT Office Visit [facility] [place] [address] [place], [place] [address] Hetal Parra MD [address] [place] [address] [place] [phone] 08/31/2023 3:00 PM CDT Office Visit [facility] [address] [place], [place] [address] Hetal Parra MD [address] 588[address] 08/31/2023 3:00 PM CDT Office Visit [facility] [place] [address] [place], [place] [address] Hetal Parra MD [address] [address] documented as of this encounter Visit Diagnoses Diagnosis related condition, antepartum documented in this encounter Additional Health Concerns Assessment Noted Time PHQ-9 Depression Total Score: 0 08/19/19 12:54 PM CDT documented as of this encounter Care Teams Deputy Sheriff Generalist/Bailiff Relationship Specialty Start Date End Date No Ref-Primary, Physician PCP - General 05/08/23 documented as of this encounter
--- OUTSIDE RECORDS SUMMARY | 2023-08-25 13:59 | XMS_ITS | Encounter Summary ---
Author Organization [place] Address Critical access hospital0 [facility] [address] Care Team Providers Care Customer Service Driver Name Role Phone No Ref-Primary, Physician Primary Care Provider Reason for Visit * Reason Onset Date Comments Appointment 08/03/2023 Encounter Details Date Type Department Care Team (Late st Contact Info) Description 08/03/[address] [facility] [place] [address] [place] [address] Shaunna Nolasco, RN Appointment Social History Tobacco [...] appointments, weekly BPP, visits, and delivery at [facility]. Offered patient to move echo from 08/10 to 08/11 to coordinate a BPP and visit with MFM coordinator at [place]. Pt will call back after checking with her spouse. Shaunna Nolasco RN documented in this encounter Plan of Treatment Upcoming Encounters Date Type Department Care Team (Late st Contact Info) Description 08/31/2023 2:[address] [facility] Maternal Medicine [facility] [address] [place] [address] Hetal Parra MD [address] [address] 08/31/2023 2:45 PM CDT Office Visit [facility] Maternal Medicine [facility] [address] [place] [address] Hetal Parra MD [address] [address] 08/31/2023 3:00 PM CDT Office Visit [facility] [address] [place] [address] Hetal Parra MD [address] [address] 08/31/2023 3:00 PM CDT Office Visit [facility] Maternal Medicine [facility] [address] [place] [address] Hetal Parra MD [address] 0146[address] documented as of this encounter Visit Diagnoses Not on filedocumented in this encounter Care Teams Customer Service Driver Relationship Specialty Start Date End Date No Ref-Primary, Physician PCP - General 05/08/23 documented as of this encounter
--- OUTSIDE RECORDS SUMMARY | 2023-08-25 13:59 | XMS_ITS | Encounter Summary ---
Author Organization [place] Address [address] [place] [address]. [place] [address] Care Team Providers Care Editor Managing Newspaper Name Role Phone No Ref-Primary, Physician Primary Care Provider Encounter Details Date Type Department Care Team (Late st Contact Info) Description 07/14/2023 Office Visit [facility] [address] [place] [phone] Carlos Alberto Ott MD [address] [place] [address] [phone] cardiac disease affecting , single or unspecified [...] Ott MD - 07/14/2023 10:20 AM CDT [facility] Consult Note Patient: Rosemary [place] Date of : 2000 Age: [age] year old Date of Visit: 07/14/2023 PCP: No Ref-Primary, Physician Dear Doctor, I had the pleasure of seeing Rosemary [place] at the [facility] on 07/14/2023 infetal cardiology consultation for echocardiogram [...] reviewed the echo findings today with Rosemary [place] and her partner. account liaison hospice was denied by patient. I discussed the cardiac anatomy, function,physiology, and plans for intervention following delivery. Based on today's echocardiogram, this will likely be a 2-ventricular repair with an arch repair. The left ventricle appears apex forming andmildly small due to the dilatation of the right ventricle in setting of a coarctation of the aorta.I recommended delivery at [facility], with plans for post- echocardiogram to determine the needsof PGE. I reviewed the importance of a post- transthoracic echocardiogram to confirm these find ings [...] care. I spent approximately 50 minutes in gdzq-gf-rsbd time reviewing the above considerations. Carlos Alberto Ott M.D. Pediatric Cardiology [facility] Children'[address], 5th floor, [place] [address] documented in this encounter Plan of Treatment Upcoming Encounters Date Type Department Care Team (Late st Contact Info) Description 08/31/2023 2:15 PM CDT Appointment [facility] Maternal [facility] [address] [place] [address] Hetal Parra MD [address] [place] [address] 08/31/2023 2:45 PM CDT Office Visit [facility] Maternal Medicine [facility] [address] [place], [place] [address] Hetal Parra MD [address] [place] [address] [place] [phone] 08/31/2023 3:00 PM CDT Office Visit [facility] Maternal [facility] [address] [place] [address] Hetal Parra MD [address] 996[address] 08/31/2023 3:00 PM CDT Office Visit [facility] Maternal Medicine [facility] [address] [place] [address] Hetal Parra MD [address] [place] [address] [place] [address] [phone] documented as of this encounter Visit Diagnoses Diagnosis cardiac disease affecting , single or unspecified fetus- Primary documented in this encounter Care Teams Editor Managing Newspaper Relationship Specialty Start Date End Date No Ref-Primary, Physician PCP - General 05/08/23 documented as of this encounter
--- OUTSIDE RECORDS SUMMARY | 2023-08-25 13:59 | XMS_ITS | Encounter Summary ---
Author Organization [place] Address [address] [facility] [place] [address] Care Team Providers Care Parts Facilitator Name Role Phone No Ref-Primary, Physician Primary Care Provider Reason for Referral * Consultation (Routine: Next available opening) - Pending Review Specialty Diagnoses / Procedures Referred By Adonis t Referred To Contact Diagnoses related condition, antepartum Jair Sanchez MD [address] [address] Referral ID Status Reason Start Date Expiration Date V isits Requested Visits Authorized [id number] Pending Review 08/04/2023 08/03/2024 2 2 Question Answer OB Visit? Yes Is this a first time OB patient? Yes NICU Consult Yes Comments OBV and NICU consult 08/18 * Diagnostic Imaging Ultrasound (Routine) - Pending Review Specialty Diagnoses / Procedures Referred By Contac t Referred To Contact Radiology. Diagnoses related condition, antepartum Procedures M BPP Single Jair Sanchez MD [address] [place] [address] Referral ID Status Reason Start Date Expiration Date V isits Requested Visits Authorized [id number] Pending Review 08/04/2023 08/03/2024 1 1 Encounter Details Date Type Department Care Team (Late st Contact Info) Description 08/04/2023 Orders Only [facility] [place] [address] [place], [place] [phone] Shaunna Nolasco RN related condition, antepartum (Primary [...] Department Care Team (Late Contact Info) Description 08/31/2023 2:15 PM CDT Appointment [facility] Maternal Medicine [facility] [address] [place] [phone] Hetal Parra MD [address] [id number] 08/31/2023 2:45 PM CDT Office Visit [facility] [address] [place], [place] [address] Hetal Parra MD [address] 5394[address] 08/31/2023 3:00 PM CDT Office Visit [facility] [place] [address] [place] [address] Hetal Parra MD [address] [address]38[address] 08/31/2023 3:00 PM CDT Office Visit [facility] [place] [address] [place] [address] Hetal Parra MD [address] 0716[address] (work) Scheduled Referrals Name Type Priority Associated Diagnoses Orde r Schedule [facility] Office Visit Referral Routine: Next available opening related condition, antepartum Weekly for 2 Occurrences starting 08/04/2023 until 08/03/2024 documented as of this encounter Results * [facility] BPP Single (08/19/2023 12:31 PM CDT) Anatomical Region Laterality Modality Ultrasound 08/19/2023 12:1 1 PM CDT Impressions 08/19/2023 4:47 PM CDT IMPRESSION ----- 1) Estrada intrauterine at 33w 5d gestational age. 2) The BPP is reassuring. 3) The amniotic fluid volume appeared normal. Narrative 08/19/2023 4:47 PM CDT ?BPP ----- Pat. Name: RA NARAYAN ? Study Date: ??08/19/2023 12:11pm Pat. NO: ??[id number] ?Referring ??MD: GUDELIA BARILLAS Site: ??[facility] ? Results Technician: Molly Bernal RDMS : ??2000 ?Age: ?? [...] movements 2: tone 2: Amniotic fluid volume 10/21 Biophysical profile score Interpretation: normal RECOMMENDATION ----- [...] MD - 08/19/2023 BPP ----- Pat. Name: GRZEGORZ AN RA Study Date: 08/19/2023 12:11pm Pat. NO: [id number] Referring MD: GUDELIA BARILLAS Site: [facility] Results Technician: Molly Bernal RDMS : 2000 Age: 22 [...] present but not detected IMPRESSION ----- 1) Estrada intrauterine at 33w 5d gestational age. 2) The BPP is reassuring. 3) The amniotic fluid volume appeared normal. Jair Sanchez MD [facility] ORDERABL ES documented in this encounter Visit Diagnoses Diagnosis related condition, antepartum- Primary related condition, antepartum documented in this encounter Care Teams Parts Facilitator Relationship Specialty Start Date End Date No Ref-Primary, Physician PCP - General 05/08/23 documented as of this encounter
--- OUTSIDE RECORDS SUMMARY | 2023-08-25 13:59 | XMS_ITS | Encounter Summary ---
Author Organization [place] Address [address] [facility] [place] [address] Care Team Providers Care Quality Improvement Manager Name Role Phone No Ref-Primary, Physician Primary Care Provider Reason for Referral * Diagnostic Imaging Ultrasound (Routine) - Pending Review Specialty Diagnoses / Procedures Referred By Contac t Referred To Contact Radiology. Diagnoses related condition, antepartum Procedures [facility] Jair Patel MD [address] [facility] [address] [address] Referral ID Status Reason Start Date Expiration Date V isits Requested Visits Authorized [id number] Pending Review 08/04/2023 08/03/2024 1 1 Reason for Visit * Diagnostic Imaging Ultrasound (Routine) - Pending Review Specialty Diagnoses / Procedures Referred By Contac t Referred To Contact Radiology. Diagnoses related condition, antepartum Procedures [facility] Jair Patel MD [address] [address] Referral ID Status Reason Start Date Expiration Date V isits Requested Visits Authorized [id number] Pending Review 08/04/2023 08/03/2024 1 1 Encounter Details Date Type Department Care Team (Latest Contact Info) Description 08/19/2023 11:45 AM CDT - 08/19/2023 11:59 PM CDT Hospital Encounter [facility] [address] [place] [phone] Leyda Guzman MD [address] [facility] [address] [place], [place] [address] related condition, antepartum Discharge Disposition: Home or [...] Take 81 mg by mouth daily 03/17/2023 calcium carbonate (TUMS) 500 MG chewable tablet Take 1 chew tab by mouth 2 times daily Vit-Fe Fumarate-FA ( VITAMIN PO) Take 1 tablet by mouth daily documented as of this encounter Plan of Treatment Upcoming Encounters Date Type Department Care Team (Late st Contact Info) Description 08/31/2023 2:15 PM CDT Appointment [facility] [place] [address] [place] [phone] Hetal Parra MD [address] [address] 08/31/2023 2:45 PM CDT Office Visit [facility] [place] [address] [place] [address] Hetal Parra MD [address] [address] 08/31/2023 3:00 PM CDT Office Visit [facility] [place] [address] [place], [place] [address] Hetal Parra MD [address] [place], [place] [address] 08/31/2023 3:00 PM CDT Office Visit [facility] [place] [address] [place], [place] [phone] Hetal Parra MD [address] [place] [address] documented as of this encounter Procedures Procedure Name Priority Date/Time Associated Diagnosis Comments [facility] BPP SINGLE Routine 08/19/2023 12:31 PM CDT related condition, antepartum documented in this encounter Results * [facility] BPP Single (08/19/2023 12:31 PM CDT) Anatomical Region Laterality Modality Ultrasound 08/19/2023 12:1 1 PM CDT Impressions 08/19/2023 4:47 PM CDT IMPRESSION ----- 1) Estrada intrauterine at 33w 5d gestational age. 2) The BPP is reassuring. 3) The amniotic fluid volume appeared normal. Narrative 08/19/2023 4:47 PM CDT ?BPP ----- Pat. Name: RA NARAYAN ? Study Date: ??08/19/2023 12:11pm Pat. NO: ??[id number] ?Referring ??MD: GUDELIA BARILLAS Site: ??[facility] ? Food Science Professor: Molly Bernal RDMS : ??2000 ?Age: ?? [...] MD - 08/19/2023 BPP ----- Pat. Name: RA NARAYAN Study Date: 08/19/2023 12:11pm Pat. NO: [id number] Referring MD: GUDELIA BARILLAS Site: [facility] Food Science Professor: Molly Bernal RDMS : 2000 Age: 22 [...] The amniotic fluid volume appeared normal. [facility] ORDERABL ES documented in this encounter Visit Diagnoses Diagnosis related condition, antepartum documented in this encounter Additional Health Concerns Assessment Noted Time PHQ-9 Depression Total Score: 0 08/19/19 24 12:54 PM CDT documented as of this encounter Care Teams Quality Improvement Manager Relationship Specialty Start Date End Date No Ref-Primary, Physician PCP - General 05/08/23 documented as of this encounter
--- OUTSIDE RECORDS SUMMARY | 2023-08-25 13:59 | XMS_ITS | Encounter Summary ---
Author Organization [place] Address [address] [facility] [place] [address] Care Team Providers Care Sap Solution Manager Consultant Name Role Phone No Ref-Primary, Physician Primary Care Provider Reason for Visit * Reason Comments Ultrasound BPP: CHD Encounter Details Date Type Department Care Team (Late st Contact Info) Description 08/19/2023 12:15 PM CDT Office Visit [facility] [place] [address] [place], [place] [phone] Leyda Guzman MD [address] [place] [address] complicated by congenital heart disease, [...] as of this encounter Progress Notes * Leyda Guzman MD - 08/19/2023 12:15 PM CDT Please see Imaging tab under Chart Review for details of today's visit. Leyda Guzman documented in this encounter Plan of Treatment Upcoming Encounters Date Type Department Care Team (Late st Contact Info) Description 08/31/2023 2:15 PM CDT Appointment [facility] Maternal Medicine [facility] [address] [place] [address] Hetal Parra MD [address] [address] [place] [phone] 08/31/2023 2:45 PM CDT Office Visit [facility] Maternal Medicine [facility] [address] [place] [address] Hetal Parra MD [address] [address] 08/31/2023 3:00 PM CDT Office Visit [facility] Medicine [facility] [address] [place] [address] Hetal Parra MD [address] [address] [place] [phone] 08/31/2023 3:00 PM CDT Office Visit [facility] Medicine [facility] [address] [place], [place] [address] Hetal Parra MD [address] 1264[address] documented as of this encounter Visit Diagnoses Diagnosis complicated by congenital heart disease, single or unspecified fetus- Primary documented in this encounter Additional Health Concerns Assessment Noted Time PHQ-9 Depression Total Score: 0 08/19/19 12:54 PM CDT documented as of this encounter Care Teams Sap Solution Manager Consultant Relationship Specialty Start Date End Date No Ref-Primary, Physician PCP - General 05/08/23 documented as of this encounter
--- OUTSIDE RECORDS SUMMARY | 2023-08-25 13:59 | XMS_ITS | Encounter Summary ---
Author Organization [facility] Address [address] [place] [address]. [place] [address] Care Team Providers Care Business Project Manager Name Role Phone No Ref-Primary, Physician Primary Care Provider Reason for Referral * (Routine) - Closed Specialty Diagnoses / Procedures Referred By Contac t Referred To Contact Cardiology Diagnoses Anomaly of heart of fetus affecting , antepartum, single or unspecified fetus Procedures Echo (TTE) Complete Amor Leonard MD [address] [place] [address] [facility] [address] [place] [phone] Referral ID Status Reason Start Date Expiration Date Visits Re quested Visits Authorized [id number] Closed 08/19/2023 08/18/2024 1 1 Encounter Details Date Type Department Care Team (Late st Contact Info) Description 08/19/2023 Orders Only [facility] [address] [place] [address] Clinic 12th [place] [address] Amor Leonard MD [address] [place] [address] Anomaly of heart of fetus affecting , [...] CDT Appointment [facility] [place] [address] [place] [address] Hetal Parra MD [address] [place] [address] [place] [phone] 08/31/2023 2:45 PM CDT Office Visit [facility] [place] [address] [place] [address] Hetal Parra MD [address] [place] [address] [place] [address] 08/31/2023 3:00 PM CDT Office Visit [facility] [place] [address] [place], [place] [address] Hetal Parra MD [address] [id number] 08/31/2023 3:00 PM CDT Office Visit [facility] [place] [address] [place] [address] Hetal Parra MD [address] [id number] documented as of this encounter Results * ECHO COMPLETE (08/19/2023 11:23 AM CDT) Anatomical Region Laterality Modality Ultrasound 08/19/2023 10:5 5 AM CDT Narrative 08/20/2023 8:33 AM CDT [id number]^ERLIN ? Study ID: [id number] ?[facility] ?[facility] ?[address] ?[place] [address] ? Echocardiogram Name: RA NARAYAN Study Date: 08/19/2023 10:55 AM ?Patient Location: [facility] Gender: Female ? Patient Class: Outpatient : 2000 ?Age: 22 yrs Ordering Provider: AMOR LEON[place] Referring Provider: FRANCIA GILMAN Performed By: Fabiola Sahni Physician: Yonatan Black MD Reason For Study: Anomaly of heart of fetus affecting , antepartum, singl Data: Number of fetuses: This is a law gestation. Due date: 10/02/2023. Gestational age: 33w5d. Delivery at: [facility]. Specific Indication: echocardiogram performed for suspected coarctation [...] to the left atrium. There is laminar vprqg-px-fmyv shunting across the foramen ovale. Atrioventricular valves: [...] Procedure Note Yonatan Black MD - 08/20/2023 [id number] [facility] [id number]^HORACIO^AMOR Study ID:[id number] [facility] [place] [address] Echocardiogram Name: RA NARAYAN Study Date: 08/19/2023 10:55 AM Patient Location:[facility] Gender: Female Patient Class:Outpatient : 2000 Age: 22 yrs Ordering Provider: AMOR LEONARD Referring Provider: FRANCIA GILMAN Performed By: Fabiola Sahni Physician: oYnatan Black MD Reason For Study: Anomaly of heart of fetus affecting ,antepartum, singl Data: Number of fetuses: This is a law gestation. Duedate: 10/02/2023. Gestational age: 33w5d. Delivery at: [facility]. Specific Indication: echocardiogram performed for suspected coarctation [...] in to the left atrium. There is nlyhifwvqkbz-re-kdvr shunting across the foramen ovale. Atrioventricular valves: [...] Physician: Yonatan Black MD 08/20/2023 08:33 AM Amor Leonard MD CV PEDS ECHO ORDERAB LES documented in this encounter Visit Diagnoses Diagnosis Anomaly of heart of fetus affecting , antepartum, single or unspecified fetus Anomaly of heart of fetus affecting , antepartum, single or unspecified fetus- Primary documented in this encounter Additional Health Concerns Assessment Noted Time PHQ-9 Depression Total Score: 0 08/19/19 12:54 PM CDT documented as of this encounter Care Teams Business Project Manager Relationship Specialty Start Date End Date No Ref-Primary, Physician PCP - General 05/08/23 documented as of this encounter
--- OUTSIDE RECORDS SUMMARY | 2023-08-25 13:59 | XMS_ITS | Encounter Summary ---
Author Organization [facility] Address [address] [place] [address] Care Team Providers Care Admissions Representative Name Role Phone No Ref-Primary, Physician Primary Care Provider Reason for Visit * Reason Onset Date Comments Appointment 08/04/2023 Encounter Details Date Type Department Care Team (Late st Contact Info) Description 08/04/2023 Telephone [facility] [place] [address] [place] [address] Shaunna Nolasco, RN Appointment Social History Tobacco [...] Phone call to Rosemary to discuss upcoming [facility] appointments and echo. Pt agreed to come to [place] for multiple appointments on 08/18. Plan: Pt will have weekly BPP starting at 32 weeks. These will be done in [place] unless patient is coming to [facility]. Serial growth q 4 weeks. Pt will come to [facility] on 08/18 for NICU consult, ob visit, echo, BPP. Will discuss delivery date and further planning at this visit. Shaunna Nolasco RN documented in this encounter Plan of Treatment Upcoming Encounters Date Type Department Care Team (Late st Contact Info) Description 08/31/2023 2:15 PM CDT Appointment [facility] Maternal Medicine [facility] [address] [place] [address] Hetal Parra MD [address] [address] [place], [place] [address] 08/31/2023 2:45 PM CDT Office Visit [facility] [address] [place], [place] [address] Hetal Parra MD [address] [place] [address] [place] [address] [id number] 08/31/2023 3:00 PM CDT Office Visit [facility] [address] [place] [address] Hetal Parra MD [address] [place] [address] [place] [address]184 08/31/2023 3:00 PM CDT Office Visit [facility] [address] [place], [place] [address] Hetal Parra MD [address] [place] [address] [place], [place] 0[address] documented as of this encounter Visit Diagnoses Not on filedocumented in this encounter Care Teams Admissions Representative Relationship Specialty Start Date End Date No Ref-Primary, Physician PCP - General 05/08/23 documented as of this encounter
--- OUTSIDE RECORDS SUMMARY | 2023-08-25 13:59 | XMS_ITS | Encounter Summary ---
Author Organization [place] Address [address] [place] [address]. [place] [address] Care Team Providers Care Fiber Optics Technician Name Role Phone No Ref-Primary, Physician Primary Care Provider Reason for Referral * (Routine) - Closed Specialty Diagnoses / Procedures Referred By Contac t Referred To Contact Cardiology Diagnoses Anomaly of heart of fetus affecting , antepartum, single or unspecified fetus Procedures Echo (TTE) Complete Yifan Clancy MD [address] [place] [address] [facility] [address] [place] [phone] Referral ID Status Reason Start Date Expiration Date Visits Re quested Visits Authorized [id number] Closed 07/14/2023 07/06/2024 1 1 Encounter Details Date Type Department Care Team (Late st Contact Info) Description 07/07/2023 Orders Only [facility] [address] [place] [address] [facility] [address] [place] [address] Yifan Clancy MD [address] [place] [address] Anomaly of heart of fetus affecting [...] Info) Description 08/31/2023 2:15 PM CDT Appointment [facility] [place] [address] [place] [address] Hetal Parra MD [address] [place] [address] [place] [address] 08/31/2023 2:45 PM CDT Office Visit [facility] [place] [address] [place] [address] Hetal Parra MD [address] [address] [id number] 08/31/2023 3:00 PM CDT Office Visit [facility] [place] [address] [place] [address] Hetal Parra MD [address] [id number] 08/31/2023 3:00 PM CDT Office Visit [facility] [place] [address] [place] [address] Hetal Parra MD [address] [id number] documented as of this encounter Results * ECHO COMPLETE (07/14/2023 10:10 AM CDT) Anatomical Region Laterality Modality Echocardiography 07/14/2023 8:18 AM CDT Narrative 07/14/2023 10:23 AM CDT [id number]^ADALBERTO ? Study ID: [id number] ?[facility] ?[facility] ?[address] ?[place] [address] ? Echocardiogram Name: RA NARAYAN Study Date: 07/14/2023 08:18 AM ? Patient Location: [facility] Gender: Female ?Patient Class: Outpatient [...] blood. pressure gradient. Delivery is recommended at [facility]. Cardiology consultation and echocardiogram is recommended immediately [...] to the left atrium. There is laminar cboke-es-xpgp shunting across the foramen ovale. Atrioventricular valves: [...] Note Carlos Alberto Ott MD - 07/14/2023 [id number]^ASTON^YIFAN Study ID:[id number] [facility] [place] [address] Echocardiogram Name: RA NARAYAN Study Date: 07/14/2023 08:18 AM Patient Location: [facility] Gender: Female Patient Class:Outpatient : [...] limb blood. pressure gradient. Delivery is recommended [facility]. Cardiology consultation and echocardiogram isrecommended immediately [...] in to the left atrium. There is ejnkpwjvdokv-yj-sgma shunting across the foramen ovale. Atrioventricular valves: [...] fetus documented in this encounter Care Teams Fiber Optics Technician Relationship Specialty Start Date End Date No Ref-Primary, Physician PCP - General 05/08/23 documented as of this encounter
--- OUTSIDE RECORDS SUMMARY | 2023-08-25 13:59 | XMS_ITS | Encounter Summary ---
Author Organization [facility] Address [address] [place] [address] Care Team Providers Care Acidizer Water Well Name Role Phone No Ref-Primary, Physician Primary Care Provider Reason for Referral * Consultation (Routine: Next available opening) - Pending Review Specialty Diagnoses / Procedures Referred By Contmaile t Referred To Contact Diagnoses Abnormal ultrasound Swati Hurst MD [address] [facility] [address] [place] [address] Referral ID Status Reason Start Date Expiration Date V isits Requested Visits Authorized [id number] Pending Review 08/04/2023 08/03/2024 1 1 Encounter Details Date Type Department Care Team (Late st Contact Info) Description 08/04/2023 Orders Only [facility] [place] [address] [place] [phone] Louise Haley GC [address] [address] [place], [place] 8[address] Abnormal ultrasound (Primary Dx) Social History Tobacco [...] genetic counseling to be added at upcoming [facility] appointment to review recommendation with patient. Louise Haley MS, [facility] Licensed Genetic Counselor [email or web address] documented in this encounter Plan of Treatment Upcoming Encounters Date Type Department Care Team (Late st Contact Info) Description 08/31/2023 2:15 PM CDT Appointment [facility] [address] [place] [address] Hetal Parra MD [address] [place] [address] [place] [address] 08/31/2023 2:45 PM CDT Office Visit [facility] [address] [place], [place] [address] Hetal Parra MD [address] [address] 08/31/2023 3:00 PM CDT Office Visit [facility] [address] [place] [address] Hetal Parra MD [address] [place] [address] [place] [phone] 08/31/2023 3:00 PM CDT Office Visit [facility] [address] [place] [address] Hetal Parra MD [address] [address] Scheduled Referrals Name Type Priority Associated Diagnoses Orde r Schedule MFM Genetic Counseling Referral Routine: Next available opening Abnormal ultrasound Expected: 08/04/2023 (Approximate), Expires: 08/03/2024 documented as of this encounter Visit Diagnoses Diagnosis Abnormal ultrasound- Primary Abnormal findings on screening documented in this encounter Care Teams Acidizer Water Well Relationship Specialty Start Date End Date No Ref-Primary, Physician PCP - General 05/08/23 documented as of this encounter
--- OUTSIDE RECORDS SUMMARY | 2023-08-25 13:59 | XMS_ITS | Encounter Summary ---
Author Organization [facility] Address [address] [facility] [place] [address] Care Team Providers Care Build Automation Engineer Name Role Phone No Ref-Primary, Physician Primary Care Provider Reason for Visit * Reason Comments Ultrasound L2- CHD Encounter Details Date Type Department Care Team (Late st Contact Info) Description 07/31/2023 2:45 PM CDT Office Visit [facility] [place] [address] [facility] [address] [place] [address] Jair Sanchez MD [address] [place] [address] [place] [address] complicated by congenital heart disease, [...] for details of today's US at the [facility]. Jair Sanchez MD Maternal- Medicine documented in [...] Description 08/31/2023 2:[address] [facility] Maternal Medicine [facility] [address] [place] [phone] Hetal Parra MD [address] [address] [address] 08/31/2023 2:45 PM CDT Office Visit [facility] [address] [place], [place] [address] Hetal Parra MD [address] [address] [phone] 08/31/2023 3:00 PM CDT Office Visit [facility] [address] [place] [address] Hetal Parra MD [address] [address] [address] 08/31/2023 3:00 PM CDT Office Visit [facility] [address] [place], [place] [address] Hetal Parra MD [address] [address] [address] documented as of this encounter Visit Diagnoses Diagnosis complicated by congenital heart disease, single or unspecified fetus- Primary documented in this encounter Care Teams Build Automation Engineer Relationship Specialty Start Date End Date No Ref-Primary, Physician PCP - General 05/08/23 documented as of this encounter
--- OUTSIDE RECORDS SUMMARY | 2023-08-25 13:59 | XMS_ITS | Encounter Summary ---
Author Organization [place] Address [address] [facility] [place] [address] Care Team Providers Care Freight Shipping Agent Name Role Phone No Ref-Primary, Physician Primary Care Provider Encounter Details Date Type Department Care Team (Latest Contact Info) Description 08/19/2023 Travel Social History Tobacco Use Types Packs/Day [...] Info) Description 08/31/2023 2:15 PM CDT Appointment [facility] [place] [address] [place] [phone] Hetal Parra MD [address] [email or web address] [address] [place], [place] [address] 08/31/2023 2:45 PM CDT Office Visit [facility] [place] [address] [place], [place] [address] Hetal Parra MD [address] [email or web address] [address] [place], [place] [address] 08/31/2023 3:00 PM CDT Office Visit [facility] [place] [address] [address] Hetal Parra MD [address] [email or web address] [address] [place], [place] [address] 08/31/2023 3:00 PM CDT Office Visit [facility] Maternal Medicine [facility] [address] [place] [address] Hetal Parra MD [address] [address] documented as of this encounter Visit Diagnoses Not on filedocumented in this encounter Additional Health Concerns Assessment Noted Time PHQ-9 Depression Total Score: 0 08/19/19 12:54 PM CDT documented as of this encounter Care Teams Freight Shipping Agent Relationship Specialty Start Date End Date No Ref-Primary, Physician PCP - General 05/08/23 documented as of this encounter
--- OUTSIDE RECORDS SUMMARY | 2023-08-25 13:59 | XMS_ITS | Encounter Summary ---
Author Organization [place] Address [address] [facility] [place] [address] Care Team Providers Care Management Specialist Name Role Phone No Ref-Primary, Physician Primary Care Provider Reason for Referral * Diagnostic Imaging Ultrasound (Routine) - Pending Review Specialty Diagnoses / Procedures Referred By Contac t Referred To Contact Radiology. Diagnoses related condition, antepartum Procedures [facility] US Comprehensive Single F/U Jair Sanchez MD [address] [facility] [address] [place] [address] Referral ID Status Reason Start Date Expiration Date V isits Requested Visits Authorized [id number] Pending Review 08/03/2023 08/02/2024 1 1 Encounter Details Date Type Department Care Team (Late st Contact Info) Description 08/03/[address] [facility] [place] [address] [place] [address] Shaunna Nolasco RN related condition, antepartum (Primary [...] Description 08/31/2023 2:[address] [facility] [place] [address] [place] [address] Hetal Parra MD [address] [place] [address] [place] [address] 08/31/2023 2:45 PM CDT Office Visit [facility] [place] [address] [place] [address] Hetal Parra MD [address] [place] [address] [place] [phone] 08/31/2023 3:00 PM CDT Office Visit [facility] [place] [address] [place] [address] Hetal Parra MD [address] 838174 08/31/2023 3:00 PM CDT Office Visit [facility] Maternal Medicine [facility] [address] [place], [place] [address] Hetal Parra MD [address] 5675[address] Scheduled Orders Name Type Priority Associated Diagnoses Orde r Schedule [facility] Comprehensive Single F/U Imaging Routine related condition, antepartum Expected: 08/28/2023 (Approximate), Expires: 08/02/2024 documented as of this encounter Visit Diagnoses Diagnosis related condition, antepartum- Primary documented in this encounter Care Teams Management Specialist Relationship Specialty Start Date End Date No Ref-Primary, Physician PCP - General 05/08/23 documented as of this encounter
--- OUTSIDE RECORDS SUMMARY | 2023-08-25 13:59 | XMS_ITS | Encounter Summary ---
Author Organization [place] Address [address] [facility] [place] [address] Care Team Providers Care Quality Coordinator Name Role Phone No Ref-Primary, Physician Primary Care Provider Reason for Referral * Consultation (Routine: Next available opening) - Pending Review Specialty Diagnoses / Procedures Referred By Contac t Referred To Contact Diagnoses Supervision of high risk in third trimester complicated by congenital heart disease, single or unspecified fetus Sue Sahni CNM [address] [address] Referral ID Status Reason Start Date Expiration Date V isits Requested Visits Authorized [id number] Pending Review 08/19/2023 08/18/2024 1 1 Question Answer OB Visit? Yes Comments Ob visit Reason for Visit * Reason Comments Care Ob visit 33w5d; feta l CHD; coarctation of aorta * Consultation (Routine: Next available opening) - Pending Review Specialty Diagnoses / Procedures Referred By Contac t Referred To Contact Diagnoses related condition, antepartum Jair Sanchez MD [address] [facility] [address] [place] [address] Referral ID Status Reason Start Date Expiration Date V isits Requested Visits Authorized [id number] Pending Review 08/04/2023 08/03/2024 2 2 Encounter Details Date Type Department Care Team (Late st Contact Info) Description 08/19/2023 9:30 AM CDT Office Visit [facility] [place] [address] [place] [address] Sue Sahni CNM [address] [address] [place] [address] Supervision of high risk in third trimester (Primary Dx); complicated by congenital heart disease, single or unspecified fetus Social History Tobacco Use Types Packs/Day Years [...] on file documented as of this encounter Last Filed Vital Signs Vital Sign Reading [...] Mass Index 39.43 08/19/2023 12:53 PM CDT documented in this encounter Progress Notes * Sue Sahni CNM - 08/19/2023 9:30 AM CDT Maternal Medicine OB Follow up visit. Rosemary Osborne : 2000 CC: OB Follow-up Subjective: Rosemary Osborne is a 22 year old at 33w5d presenting for routine OB follow-up. Today, she is here with her partner, Aries, and is feeling well. Offers minimal concerns today. Reports movement. Denies regular, painful contractions, denies loss of fluid or vaginal bleeding. Does have occasional discomfort on her right side, but is related to position and improves with position changes. OB Hx: OB History Para Term AB Living 1 0 0 0 0 0 SAB IAB Ectopic Multiple Live Births 0 0 0 0 0 # Outcome Date GA Lbr Dyllan/2nd Weight Sex Type Anes PTL Lv 1 Current Objective: VS: See flowsheet Gen: alert, oriented, NAD Skin: warm, dry, intact Respiratory: breathing unlabored, no SOB Abdominal: gravid, non-tender Pelvic: deferred Extremities: WNL Psych: mood WNL, behavior WNL OB Ultrasound: Please see imaging tab under chart review for today's ultrasound results. Echo: Please see Echo under Cardiology tab for today's results. Assessment/Plan: 22 year old at 33w5d here for follow up OB visit. has been complicated by: Maternal dx: - +Chlamydia 02/16/23. Neg DOE 03/17/23 dx: - Coarctation of the aorta Transfer of care: - Oriented patient to [facility] practice. Reviewed that [facility] is a multidisciplinary institution and her care will be collaborative in fashion with [facility] doctors, CNM, residents, fellows, and S clinic for intrapartum management. Routine PNC: - labs: Rh: + antibody: neg HepB/HIV/RPR/HepC: NR GC/CT: Chlamydia+ on 02/16. She and partner treated. DOE negative on 03/17/23 Rubella: immune GCT: pass - 88 - Pap smear: due . LSIL and HP neg on 09/12 - Immunizations: s/p TDap 07/28/23; Flu 03/17/23 - Genetic screening: low-risk NIPT - GBS at 36 weeks Surveillance: - Serial growth US next on 08/30. - Weekly BPPs to be shared between [facility] and local OB clinic Delivery planning: - Discussed recommendation and rationale for 39 week IOL should spontaneous labor not occur. Patient and partner are agreeable to this and we will schedule this at her next visit in 2 weeks. - Will need more thorough review of IOL methods and timeline at next visit. - Labor analgesia: briefly reviewed pain management options for labor; will discuss this more in-depth at next visit. - Feeding: - Contraception plans: needs to be discussed RTC in 2 weeks for growth US, BPP, and OB visit. 30 minutes spent on the date of the encounter, doing chart review, history and exam, documentation and further activities as noted. Sue Sahni CNM on 08/19/2023 at 9:30 AM documented in this encounter Nursing Notes * Shaunna Nolasco RN - 08/19/2023 9:30 AM CDT Rosemary seen in clinic today for NICU consult, Ob visit, echo, BPP at 33w5d gestation for complicated by CHD (see report/notes). VSS. Pt reports normal movement, see flowsheet, reviewed kick counts. Evaluated for bldg/lof/change in discharge/contractions/headache/vision changes/chest pain/SOB/edema, patient denies concerns. Pt evaluated for cardiac concerns, labor, preeclampsia, wellbeing without concerns. Pt notified to review new pt education in AVS, verbally reviewed highlights. Phone numbers to clinic and [facility] given and discussed. Plan weekly BPP in [place]. Pt will return to [facility] on 08/30 for RL2/BPP/Ob visit/GC. Pt discharged stableand ambulatory. Shaunna Nolasco RN documented in this encounter Plan of Treatment Upcoming Encounters Date Type Department Care Team (Late st Contact Info) Description 08/31/2023 2:15 PM CDT Appointment [facility] [place] [address] [place] [phone] Hetal Parra MD [address] [facility] [address] [place], [place] [address] 08/31/2023 2:45 PM CDT Office Visit [facility] [place] [address] [place], [place] [address] Hetal Parra MD [address] [place] [address] 08/31/2023 3:00 PM CDT Office Visit [facility] [place] [address] [place] [address] Hetal Parra MD [address] [address] [place], [place] [address] 08/31/2023 3:00 PM CDT Office Visit [facility] Maternal Medicine [facility] [address] [place], [place] [address] Hetal Parra MD [address] [facility] [address] [place], [place] [phone] Scheduled Referrals Name Type Priority Associated Diagnoses Orde r Schedule [facility] Office Visit Referral Routine: Next available opening Supervision of high risk in third trimester complicated by congenital heart disease, single or unspecified fetus Expected: 08/31/2023 (Approximate), Expires: 08/18/2024 documented as of this encounter Visit Diagnoses Diagnosis Supervision of high risk in third trimester- Primary Unspecified high-risk complicated by congenital heart disease, single or unspecified fetus documented in this encounter Additional Health Concerns Assessment Noted Time PHQ-9 Depression Total Score: 0 08/19/19 12:54 PM CDT documented as of this encounter Care Teams Quality Coordinator Relationship Specialty Start Date End Date No Ref-Primary, Physician PCP - General 05/08/23 documented as of this encounter
--- OUTSIDE RECORDS SUMMARY | 2023-08-25 13:59 | XMS_ITS | Encounter Summary ---
Author Organization [place] Address [address] [place] [address] Care Team Providers Care Hadoop Infrastructure Architect Name Role Phone No Ref-Primary, Physician Primary Care Provider Reason for Referral * (Routine) - Closed Specialty Diagnoses / Procedures Referred By Adonis t Referred To Contact Cardiology Diagnoses Anomaly of heart of fetus affecting , antepartum, single or unspecified fetus Procedures Echo (TTE) Complete Amor Leonard MD [address] [place] [address] [facility] [address] [place] [place] [phone] Referral ID Status Reason Start Date Expiration Date Visits Re quested Visits Authorized [id number] Closed 08/19/2023 08/18/2024 1 1 Reason for Visit * (Routine) - Closed Specialty Diagnoses / Procedures Referred By Contac t Referred To Contact Cardiology Diagnoses Anomaly of heart of fetus affecting , antepartum, single or unspecified fetus Procedures Echo (TTE) Amor Anderson MD [address] [place] [address] [facility] [address] [place] [place] [phone] Referral ID Status Reason Start Date Expiration Date Visits Re quested Visits Authorized [id number] Closed 08/19/2023 08/18/2024 1 1 Encounter Details Date Type Department Care Team (Latest Contact Info) Description 08/19/2023 9:25 AM CDT - 08/19/2023 11:44 AM CDT Hospital Encounter [facility] [address] [place] [phone] Leyda Guzman MD [address] [place] [phone] [email or web address] Anomaly of heart of fetus affecting [...] Info) Description 08/31/2023 2:15 PM CDT Appointment [facility] [place] [address] [place], [place] [address] [place] [phone] Hetal Parra MD [address] [place] [phone] 08/31/2023 2:45 PM CDT Office Visit [facility] [place] [address] [place] [address] Hetal Parra MD [address] [place] [address] 08/31/2023 3:00 PM CDT Office Visit [facility] [place] [address] [place] [address] Hetal Parra MD [address] [place] [address] 08/31/2023 3:00 PM CDT Office Visit [facility] [address] [place], [place] [address] Hetal Parra MD [address] [place] [address] documented as of this encounter Procedures Procedure Name Priority Date/Time Associated Diagnosis Comments ECHO COMPLETE Routine 08/19/2023 1 1:23 AM CDT Anomaly of heart of fetus affecting , antepartum, single or unspecified fetus documented in this encounter Results * ECHO COMPLETE (08/19/2023 11:23 AM CDT) Anatomical Region Laterality Modality Ultrasound 08/19/2023 10:5 5 AM CDT Narrative 08/20/2023 8:33 AM CDT [id number]^HORACIO^AMOR ? Study ID: [id number] ?[facility] ?[facility] ?[address] ?[place] [address] ? Echocardiogram Name: RA NARAYAN Study Date: [...] date: 10/02/2023. Gestational age: 33w5d. Delivery at: [place]. Specific Indication: echocardiogram performed for suspected coarctation [...] to the patient. Delivery is recommended at [facility]. Cardiology consultation and echocardiogram is recommended [...] to the left atrium. There is laminar armiv-yn-vbxk shunting across the foramen ovale. Atrioventricular valves: [...] Procedure Note Yonatan Black MD - 08/20/2023 [id number]^HORACIO^AMOR Study ID:[id number] [facility] [address] [place] [address] Echocardiogram Name: RA NARAYAN Study Date: 08/19/2023 10:55 AM Patient Location:[facility] Gender: Female Patient Class:Outpatient : 2000 Age: 22 yrs Ordering Provider: AMOR LEONARD Referring Provider: FRANCIA GILMAN Performed By: Fabiola Sahni Physician: Yonatan Black MD Reason For Study: Anomaly of heart of fetus affecting ,antepartum, singl Data: Number of fetuses: This is a law gestation. Duedate: 10/02/2023. Gestational age: 33w5d. Delivery at: [place]. Specific Indication: echocardiogram performed for suspected coarctation [...] to the patient. Delivery is recommended at [facility]. Cardiology consultation and echocardiogram is recommended [...] in to the left atrium. There is egtldtqvalcn-mu-ydwd shunting across the foramen ovale. Atrioventricular valves: [...] documented as of this encounter Care Teams Hadoop Infrastructure Architect Relationship Specialty Start Date End Date No Ref-Primary, Physician PCP - General 05/08/23 documented as of this encounter
--- OUTSIDE RECORDS SUMMARY | 2023-08-25 13:59 | XMS_ITS | Encounter Summary ---
Author Organization [place] Address [address] [facility] [place] [address] Care Team Providers Care Car Dispatcher Name Role Phone No Ref-Primary, Physician Primary Care Provider Reason for Referral * Diagnostic Imaging Ultrasound (Routine) - Pending Review Specialty Diagnoses / Procedures Referred By Contac t Referred To Contact Radiology. Diagnoses Congenital heart defect Procedures [facility] Comprehensive Single F/U Swati Hurst MD [address] [place], [place] [address] Referral ID Status Reason Start Date Expiration Date V isits Requested Visits Authorized [id number] Pending Review 06/29/2023 06/28/2024 1 1 Reason for Visit * Diagnostic Imaging Ultrasound (Routine) - Pending Review Specialty Diagnoses / Procedures Referred By Contac t Referred To Contact Radiology. Diagnoses Congenital heart defect Procedures [facility] Comprehensive Single F/U Swati Hurst MD [address] [place], [place] [email or web address] [address] [address] Referral ID Status Reason Start Date Expiration Date V isits Requested Visits Authorized [id number] Pending Review 06/29/2023 06/28/2024 1 1 Encounter Details Date Type Department Care Team (Latest Contact Info) Description 07/31/2023 2:08 PM CDT - 07/31/2023 11:59 PM CDT Hospital Encounter [facility] [place] [address] [facility] [address] [place] [phone] Jair Sanchez MD [address] [facility] [address] [id number] Congenital heart defect Discharge Disposition: Home or [...] Description 08/31/2023 2:[address] [facility] Medicine [facility] [address] [place] [address] Hetal Parra MD [address] [id number] 08/31/2023 2:45 PM CDT Office Visit [facility] [place] [address] [place] [address] Hetal Parra MD [address] [facility] [address] [address] 08/31/2023 3:00 PM CDT Office Visit [facility] Maternal Medicine [facility] [address] [place] [address] Hetal Parra MD [address] [address] 08/31/2023 3:00 PM CDT Office Visit [facility] Maternal Medicine [facility] [address] [place], [place] [address] Hetal Parra MD [address] [place] [address] documented as of this encounter Procedures Procedure Name Priority Date/Time Associated Diagnosis Comments [facility] US COMPREHENSIVE SINGLE F/U Routine 07/31/2023 2:45 PM CDT Congenital heart defect documented in this encounter Results * [facility] US Comprehensive Single F/U (07/31/2023 2:45 PM [...] ? Study Date: ??07/31/2023 2:19pm Pat. NO: ??[id number] ?Referring ??: FRANCIA GILMAN Site: ??[facility] ? Inseam Trimmer: Justyna Calixto RDMS : ??2000 ?Age: ?? [...] lb 11 ? oz EFW by ?Hadlock ([id number]) Head / Face / Neck Biometry: Iron Assorter ? 4.0 ? mm CM ?5.2 ? mm ANATOMY ----- The following structures appear abnormal: Heart / Thorax ?4-chamber view: See Echo report by [facility] from 05/20/2023. LVOT view. 3-vessel view. 8-bwvtmq-fgaoutm view. The following structures appear normal: Head [...] 07/31/2023 Comp Follow Up ----- Pat. Name: GRZEGORZ AN RA Study Date: 07/31/2023 2:19pm Pat. NO: [id number] Referring MD: FRANCIA GILMAN Site: [facility] Inseam Trimmer: Justyna Calixto RDMS : 2000 Age: 22 [...] 3 lb 11 oz EFW by Hadlock ([id number]) Head / Face / Neck Biometry: Iron Assorter 4.0 mm CM 5.2 mm ANATOMY ----- The following structures appear abnormal: Heart / Thorax 4-chamber view: See Echo reportby [facility] from 05/20/2023. LVOT view. 3-vessel view.9-gxepbs-rzugmpr view. The following structures appear normal: Head [...] fluid volume appeared normal. Swati Hurst MD [facility] US ORDERABLE S documented in this encounter Visit Diagnoses Diagnosis Congenital heart defect Unspecified congenital anomaly of heart documented in this encounter Care Teams Car Dispatcher Relationship Specialty Start Date End Date No Ref-Primary, Physician PCP - General 05/08/23 documented as of this encounter
--- OUTSIDE RECORDS SUMMARY | 2023-08-25 13:59 | XMS_ITS | Encounter Summary ---
Author Organization [place] Address [address] [facility] [place] [address] Care Team Providers Care Supervisor Sample Preparation Name Role Phone No Ref-Primary, Physician Primary [...] Info) Description 08/31/2023 2:15 PM CDT Appointment [facility] [place] [address] [place] [phone] Hetal Parra MD [address] [id number] 08/31/2023 2:45 PM CDT Office Visit [facility] [place] [address] [place], [place] [address] Hetal Parra MD [address] [address] 08/31/2023 3:00 PM CDT Office Visit [facility] [place] [address] [place] [address] Hetal Parra MD [address] [facility] [address] [place], [place] [address] 08/31/2023 3:00 PM CDT Office Visit [facility] Maternal Medicine [facility] [address] [place] [address] Hetal Parra MD [address] [address] documented as of this encounter Visit Diagnoses Not on filedocumented in this encounter Care Teams Supervisor Sample Preparation Relationship Specialty Start Date End Date No Ref-Primary, Physician PCP - General 05/08/23 documented as of this encounter
--- OUTSIDE RECORDS SUMMARY | 2023-08-25 14:00 | XMS_ITS | Clinical Summary ---
Author Organization [facility] Address [place], [place] [address] Care Team Providers Care Early Head Start Teacher Name Role Phone Anitha Ojeda DO Primary Care Provider [phone] Allergies Active Allergy Reactions Criticality Noted Date Comments [place] Shortness Of Breath,Rash 01/03/2020 Medications Medication Sig [...] Comments Blood Pressure 121/78 02/18/2022 9:36 AM CREATIVE ENGAGEMENT DIRECTOR Pulse 70 02/18/2022 9:36 AM CREATIVE ENGAGEMENT DIRECTOR Temperature 37.1 ??C (98.8 ??F) 09/30/2021 1:43 PM CD T Respiratory Rate 14 12/21/2020 8:12 AM CDT Oxygen Saturation 99% 02/18/2022 9:36 AM CREATIVE ENGAGEMENT DIRECTOR Inhaled Oxygen Concentration - - Weight 82.6 kg (182 lb) 02/18/2022 9:36 AM CREATIVE ENGAGEMENT DIRECTOR Height 157 cm (5' 1.81) 07/11/2021 8:31 [...] CHLAMYDIA TRACH PROBE Routine 05/20/2021 3:33 PM CREATIVE ENGAGEMENT DIRECTOR Routine screening for STI (sexually transmitted infection) ANTI HIV 1/2 Routine 06/29/2020 3:20 PM CDT Leukocytosis, unspecified type Thrombocytosis (HC) from Last 3 Months or Most Recently Relevant to Health Maintenance Results * HPV HIGH RISK (09/12/2022 3:00 PM CDT) TYPE 16 Negative Negative 09/23/2022 5:00 PM CDT [facility] TYPE 18 Negative Negative 09/23/2022 5:00 PM CDT [facility] OTHER HIGH RISK TYPES Negative Negative 09/23/2022 5:00 PM CDT [facility] Other (Other) 09/12/2022 3:0 0 PM CDT 09/17/2022 12:19 PM CDT Narrative [facility] - 09/23/2022 5:00 PM CDT HPV types 16, 18, 31, 33, 35, 39, 45, 51, 52, 56, 58, 59, 66 and 68 DNA were undetectable or below the pre-set threshold. Methodology: Michelle Adela 4800 HPV Test Alley Johnson MD MICROBIOLO GY [facility] [address] [place] [address], [place] * GC CHLAMYDIA TRACH PROBE (05/20/2021 3:33 PM CREATIVE ENGAGEMENT DIRECTOR) CHLAMYDIA PROBE Negative 4:11 AM CREATIVE ENGAGEMENT DIRECTOR [facility] N GONORRHOEAE PROBE Negative 05/21/2021 4:11 AM CREATIVE ENGAGEMENT DIRECTOR [facility] Other URINE SPECIMEN / Unknown Non-Blood / Unknown 05/20/2021 3:33 PM CREATIVE ENGAGEMENT DIRECTOR 05/20/2021 3:34 PM CREATIVE ENGAGEMENT DIRECTOR Madina Goetz MD MICROBIOLOG Y [facility] [address] [place] [address], * ANTI HIV 1/2 (06/29/2020 3:20 PM CDT) Pathologist [facility] HIV-1/HIV-2 ANTIBODY Non-Reacti ve Non-Reacti ve 06/29/2020 9:14 PM CDT [facility] Comment:HIV-1 p24 and HIV-1/ HIV-2 Ab not detected. Blood BLOOD SPECIMEN / Unknown Venipuncture / Unknown 06/29/2020 3:20 PM CDT 06/29/2020 3:20 PM CDT Anitha Ojeda DO SEND OUTS Performing Organization Address [facility]/ZIP Co de Phone Number [facility] [address] [place] [address], from Last 3 Months or Most Recently Relevant to Health Maintenance Care Teams Early Head Start Teacher Relationship Specialty Start Date End Date Anitha Ojeda DO [facility] [place] [address] PCP - General Family Practice 07/05/20
--- OUTSIDE RECORDS SUMMARY | 2023-08-25 14:00 | XMS_ITS | Encounter Summary ---
Author Organization [place] Address [facility] [place] [address] Care Team Providers Care Cable Operator Name Role Phone No Ref-Primary, Physician Primary Care Provider Encounter Details Date Type Department Care Team (Late st Contact Info) Description 05/21/[address] [facility] [address] [place] [address] Kym Little, RN Social History [...] [facility] [place] [address] [place] [address] Hetal Parra MD [address] [facility] [address] [place] [address] 08/31/2023 2:45 PM CDT Office Visit [facility] [place] [address] [place] [address] Hetal Parra MD [address] [place] [address] 08/31/2023 3:00 PM CDT Office Visit [facility] Maternal Medicine [facility] [address] [place] [address] Hetal Parra MD [address] [address] [place] [address] 08/31/2023 3:00 PM CDT Office Visit [facility] Maternal Medicine [facility] [address] [place] [address] Hetal Parra MD [address] [address] documented as of this encounter Visit Diagnoses Not on filedocumented in this encounter Care Teams Cable Operator Relationship Specialty Start Date End Date No Ref-Primary, Physician PCP - General 05/08/23 documented as of this encounter
--- OUTSIDE RECORDS SUMMARY | 2023-08-25 14:00 | XMS_ITS | Encounter Summary ---
Author Organization [place] Address [address] [facility] [place] [address] Care Team Providers Care Water Pollution Control Inspector Name Role Phone No Ref-Primary, Physician [...] Info) Description 08/31/2023 2:15 PM CDT Appointment [facility] [place] [address] [place] [phone] Hetal Parra MD [address] [address] 08/31/2023 2:45 PM CDT Office Visit [facility] [place] [address] [place], [place] [address] Hetal Parra MD [address] [address] 08/31/2023 3:00 PM CDT Office Visit [facility] [place] [address] [place] [address] Hetal Parra MD [address] [facility] [address] [place], [place] [address] 08/31/2023 3:00 PM CDT Office Visit [facility] Maternal Medicine [facility] [address] [place] [address] Hetal Parra MD [address] [id number] documented as of this encounter Visit Diagnoses Not on filedocumented in this encounter Care Teams Water Pollution Control Inspector Relationship Specialty Start Date End Date No Ref-Primary, Physician PCP - General 05/08/23 documented as of this encounter
--- OUTSIDE RECORDS SUMMARY | 2023-08-25 14:00 | XMS_ITS | Encounter Summary ---
Author Organization [place] Address [address] [facility] [place] [address] Care Team Providers Care Asbestos Abatement Worker Name Role Phone No Ref-Primary, Physician Primary Care Provider Reason for Referral * Diagnostic Imaging Ultrasound (Routine) - Pending Review Specialty Diagnoses / Procedures Referred By Contac t Referred To Contact Radiology. Diagnoses abnormality affecting management of mother, single or unspecified fetus Procedures MF US Comprehensive Single F/U Swati Hurst MD [address] [place] [address] Referral ID Status Reason Start Date Expiration Date V isits Requested Visits Authorized [id number] Pending Review 06/01/2023 05/31/2024 1 1 Reason for Visit * Reason Comments Ultrasound RL2- CHD Encounter Details Date Type Department Care Team (Late st Contact Info) Description 06/01/2023 8:30 AM CDT Office Visit [facility] [place] [address] [facility] [address] [place] [address] Leyda Guzman MD [address] [place] [address] Swati Hurst MD [address] [place] [address] abnormality affecting management of mother, [...] Info) Description 08/31/2023 2:15 PM CDT Appointment [facility] [place] [address] [place] [address] Hetal Parra MD [address] [address] 08/31/2023 2:45 PM CDT Office Visit [facility] [place] [address] [place] [address] Hetal Parra MD [address] [address] 08/31/2023 3:00 PM CDT Office Visit [facility] [place] [address] [place] [address] Hetal Parra MD [address] [address] [address] 08/31/2023 3:00 PM CDT Office Visit [facility] [place] [address] [place] [address] Hetal Parra MD [address] [place] [address] documented as of this encounter Results * [...] ? Study Date: ??06/29/2023 2:20pm Pat. NO: ??[id number] ?Referring ??MD: FRANCIA GILMAN Site: ??[facility] ? Diesel Dragline Operator: Mumtaz Ventura RDMS : ??2000 ?Age: [...] 2 lb 3 ?oz EFW by ?Hadlock ([id number]-QX-[id number]-FL) Head / Face / Neck Biometry: School Crossing Guard Supervisor ? 4.6 ? mm CM ?4.7 ? mm ANATOMY ----- The following structures appear abnormal: Heart / Thorax ?4-chamber view: left side of heart is smaller than the right. . 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 . 3-vessel view: small aorta. 4-ubouyc-hkyudsp view: small aorta . The following structures [...] on PGE. Plan for repeat assessment with [facility] of cardiac anatomy and growth in 4 weeks. She will likely need to delivery at [place], however, will plan to reevaluate following her [...] the patient (reviewing medical records/tests), in direct vvir-lx-zivt contact with the patient during her visit with the majority spent counseling and discussing the plan of care and documenting the visit in the electronic medical record. Please see note for details. Procedure Note Swati Hurst MD - 07/03/2023 Comp Follow Up ----- Pat. Name: RA NARAYAN Study Date: 06/29/2023 2:20pm Pat. NO: [id number] Referring MD: FRANCIA GILMAN Site: [facility] Diesel Dragline Operator: Mumtaz Ventura RDMS : 2000 Age: [...] 2 lb 3 oz EFW by Hadlock ([id number]) Head / Face / Neck Biometry: School Crossing Guard Supervisor 4.6 mm CM 4.7 mm ANATOMY ----- The following structures appear abnormal: Heart / Thorax 4-chamber view: left side of heart issmaller than the right. . LVOT view: mitral valve hypoplasia . Aortic archview: hypoplasia of aortic isthmus . 3-vessel view: small aorta.1-kqakro-ukjiuwt view: small aorta . The following structures [...] known cardiac abnormality. 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 Per cardiology, this anatomy may be dependenton PGE. Plan for repeat assessment with [facility] of cardiac anatomy and growth in4 weeks. She will likely need to delivery at [place], however, will planto reevaluate following her next [...] see the patient (reviewing medical records/tests), in ewfcerurbz-yi-oblg contact with the patient during her visit [...] amniotic fluid volume appeared normal. Swati WAHL [facility] US ORDERABLE S documented in this encounter Visit Diagnoses Diagnosis abnormality affecting management of mother, single or unspecified fetus- Primary abnormality affecting management of mother, single or unspecified fetus documented in this encounter Care Teams Asbestos Abatement Worker Relationship Specialty Start Date End Date No Ref-Primary, Physician PCP - General 05/08/23 documented as of this encounter
--- OUTSIDE RECORDS SUMMARY | 2023-08-25 14:00 | XMS_ITS | Encounter Summary ---
Author Organization [place] Address [address] [place] [address] Care Team Providers Care Taper Machine Name Role Phone No Ref-Primary, Physician Primary Care Provider Encounter Details Date Type Department Care Team ([facility] st Contact Info) Description 05/20/2023 Office Visit [facility] [address] [facility] [address] [place] [address] Yifan Aponte MD [address] [place] [address] Anomaly of heart of fetus affecting [...] Aponte MD - 05/20/2023 7:58 AM CST [facility] Consult Note Patient: Rosemary Osborne Date of : 2000 Age: [age] year old Date of Visit: 05/20/2023 PCP: No Ref-Primary, Physician Dear Doctor: I had the pleasure of seeing Rosemary Osborne at the [facility] on 05/20/2023 in cardiology consultation for echocardiogram [...] suspect the baby will require delivery at [facility] but this will be determined at future [...] the visit. Michi Aponte M.D. Pediatric Cardiology [facility] [address] Academic Office Building 4th [facility], [place] [address] STARTER documented in this encounter Plan of Treatment Upcoming Encounters Date Type Department Care Team (Late st Contact Info) Description 08/31/2023 2:15 PM CDT Appointment [facility] Maternal Medicine [facility] [address] [place] [address] Hetal Parra MD [address] [place] [address] 08/31/2023 2:45 PM CDT Office Visit [facility] Maternal Medicine [facility] [address] [place] [address] Hetal Parra MD [address] [address] 08/31/2023 3:00 PM CDT Office Visit [facility] Maternal Medicine [facility] [address] [place] [address] Hetal Parra MD [address] [address] 08/31/2023 3:00 PM CDT Office Visit [facility] Maternal Medicine [facility] [address] [place] [address] Hetal Parra MD [address] [address] documented as of this encounter Visit Diagnoses Diagnosis Anomaly of heart of fetus affecting , antepartum, single or unspecified fetus- Primary documented in this encounter Care Teams Taper Machine Relationship Specialty Start Date End Date No Ref-Primary, Physician PCP - General 05/08/23 documented as of this encounter
--- OUTSIDE RECORDS SUMMARY | 2023-08-25 14:00 | XMS_ITS | Encounter Summary ---
Author Organization [place] Address [facility] [place] [address] Care Team Providers Care Senior Publications Specialist Name Role Phone No Ref-Primary, Physician Primary Care Provider Reason for Referral * (Routine) - Closed Specialty Diagnoses / Procedures Referred By Contac t Referred To Contact Cardiology Diagnoses Maternal care for other (suspected) abnormality and damage, cardiac anomalies, fetus 1 Procedures Echo (TTE) Complete Suresh Guzman MD [address] [address] [facility] [address] [place] [address] Referral ID Status Reason Start Date Expiration Date Visits Re quested Visits Authorized [id number] Closed 05/08/2023 05/07/2024 1 1 E HANDLER Reason for Visit * (Routine) - Closed Specialty Diagnoses / Procedures Referred By Contac t Referred To Contact Cardiology Diagnoses Maternal care for other (suspected) abnormality and damage, cardiac anomalies, fetus 1 Procedures Echo (TTE) Suresh Munson MD [address] [address] [facility] [address] [place] [phone] Referral ID Status Reason Start Date Expiration Date Visits Re quested Visits Authorized [id number] Closed 05/08/2023 05/07/2024 1 1 Encounter Details Date Type Department Care Team (Latest Contact Info) Description 05/20/2023 7:55 AM LADLE HANDLER - 05/20/2023 11:59 PM LADLE HANDLER Hospital Encounter [facility] [place] [facility] [address] [place] [phone] Suresh Guzman MD [address] [place], [place] [address]E [address] [id number] complicated by congenital heart disease, single or [...] Info) Description 08/31/2023 2:15 PM CDT Appointment [facility] Medicine [facility] [place] [address] [place] [phone] Hetal Parra MD [address] [place], [place] [address]E S [address] [address] 08/31/2023 2:45 PM CDT Office Visit [facility] [place] [address] [place], [place] [address] Hetal Parra MD [address] [place], [place] [address]E S [address] [address] 08/31/2023 3:00 PM CDT Office Visit [facility] [place] [address] [place], [place] [address] Hetal Parra MD [address] [place], [place] [address] 08/31/2023 3:00 PM CDT Office Visit [facility] Maternal Medicine [facility] [address] [place] [address] Hetal Parra MD [address] [place], [place] [address] documented as of this encounter Procedures Procedure Name Priority Date/Time Associated Diagnosis Comments ECHO COMPLETE Routine 05/20/2023 9 :52 AM LADLE HANDLER complicated by congenital heart disease, single or unspecified fetus documented in this encounter Results * ECHO COMPLETE (05/20/2023 9:52 AM LADLE HANDLER) Anatomical Region Laterality Modality Echocardiography 05/20/2023 8:11 AM LADLE HANDLER Narrative 05/20/2023 10:23 AM LADLE HANDLER [id number]^NEREIDA^SURESH ? Study ID: [id number] ?[facility] ?[facility] ?[address] ?[place] [address] ? Echocardiogram Name: RA NARAYAN Study Date: [...] to the left atrium. There is laminar mavml-fz-jboc shunting across the foramen ovale. Atrioventricular valves: [...] Procedure Note Yifan Aponte MD - 05/20/2023 [id number]^NEREIDA^SURESH Study ID:[id number] [facility] [address] [address] Echocardiogram Name: RA NARAYAN Study Date: 05/20/2023 08:11 AM Patient Location: [facility] Gender: Female Patient Class:Outpatient : 2000 [...] in to the left atrium. There is ufanccbbmvos-at-dplu shunting across the foramen ovale. Atrioventricular valves: [...] fetus documented in this encounter Care Teams Senior Publications Specialist Relationship Specialty Start Date End Date No Ref-Primary, Physician PCP - General 05/08/23 documented as of this encounter
--- OUTSIDE RECORDS SUMMARY | 2023-08-25 14:00 | XMS_ITS | Encounter Summary ---
Author Organization [place] Address [facility] [place] [address] Care Team Providers Care Patrol Police Sergeant Name Role Phone No Ref-Primary, Physician Primary Care Provider Reason for Referral * Diagnostic Imaging Ultrasound (Routine) - Pending Review Specialty Diagnoses / Procedures [facility] To Contact Radiology. Diagnoses Maternal care for other (suspected) abnormality and damage, cardiac anomalies, fetus 1 Procedures [facility] Comprehensive Single F/U Leyda Guzman MD [address] [facility] [address] [place] [address] Referral ID Status Reason Start Date Expiration Date V isits Requested Visits Authorized [id number] Pending Review 05/08/2023 05/07/2024 1 1 Reason for Visit * Diagnostic Imaging Ultrasound (Routine) - Pending Review Specialty Diagnoses / Procedures Referred By Contac t Referred To Contact Radiology. Diagnoses Maternal care for other (suspected) abnormality and damage, cardiac anomalies, fetus 1 Procedures [facility] Comprehensive Single F/U Leyda Guzman MD [address] [place] [address] Referral ID Status Reason Start Date Expiration Date V isits Requested Visits Authorized [id number] Pending Review 05/08/2023 05/07/2024 1 1 Encounter Details Date Type Department Care Team (Latest Contact Info) Description 06/01/2023 7:52 AM CDT - 06/01/2023 11:59 PM CDT Hospital Encounter [facility] Maternal Medicine [facility] [address] [place] [address] Leyda Guzman MD [address] [facility] [address] [place], [place] [address] Swati Hurst MD [address] [id number] complicated by congenital heart disease, single or [...] Info) Description 08/31/2023 2:15 PM CDT Appointment [facility] Maternal Medicine [facility] [address] [place] [phone] Hetal Parra MD [address] [address] 08/31/2023 2:45 PM CDT Office Visit [facility] Maternal Medicine [facility] [address] [place], [place] [address] Hetal Parra MD [address] [address] 08/31/2023 3:00 PM CDT Office Visit [facility] Maternal Medicine [facility] [address] [place] [address] Hetal Parra MD [address] [place], [place] [address] 08/31/2023 3:00 PM CDT Office Visit [facility] [place] [address] [place], [place] [address] Hetal Parra MD [address] [facility] [address] [place], [place] [address] documented as of this encounter Procedures Procedure Name Priority Date/Time Associated Diagnosis Comments [facility] US COMPREHENSIVE SINGLE F/U Routine 06/01/2023 8:34 AM CDT complicated by congenital heart disease, single or unspecified fetus documented in this encounter Results * [facility] [...] ? Study Date: ??06/01/2023 7:57am Pat. NO: ??[id number] ?Referring ??MD: FRANCIA GILMAN Site: [facility] ? Child Care Assistant: Mumtaz Ventura RDMS : ??2000 ?Age: ?? [...] 1 lb 1 ?oz EFW by ?Hadlock ([id number]-FL) Head / Face / Neck Biometry: Timber Robber ? 5.4 ? mm CM ?5.2 ? mm ANATOMY ----- The following structures appear abnormal: Heart / Thorax ?4-chamber view: Left side of the heart is small . LVOT view. 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 3-vessel view: small aorta. ? 8-ajezka-jwifnht view: small aorta . The following structures [...] delay today. Plan for repeat assessment with [facility] of cardiac anatomy and growth in 4 [...] the patient (reviewing medical records/tests), in direct xupq-ij-kosa contact with the patient during her visit with the majority spent counseling and discussing the plan of care and documenting the visit in the electronic medical record. Please see note for details. Procedure Note Swati Hurst MD - 06/01/2023 Comp Follow Up ----- Pat. Name: RA NARAYAN Study Date: 06/01/2023 7:57am Pat. NO: [id number] Referring MD: FRANCIA GILMAN Site: [facility] Child Care Assistant: Mumtaz Ventura RDMS : 2000 Age: 22 [...] 1 lb 1 oz EFW by Hadlock (AYH-IN-HC-FL) Head / Face / Neck Biometry: Timber Robber 5.4 mm CM 5.2 mm ANATOMY ----- The following structures appear abnormal: Heart / Thorax 4-chamber view: Left side of the heartis small . LVOT view. 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 2-urniyi-spscpss view: smallaorta . The following structures appear [...] see the patient (reviewing medical records/tests), in toyvyedrxr-kg-xngz contact with the patient during her visit [...] fluid volume appeared normal. Leyda Guzman MD [facility] US ORDERABLE S documented in this encounter Visit Diagnoses Diagnosis complicated by congenital heart disease, single or unspecified fetus documented in this encounter Care Teams Patrol Police Sergeant Relationship Specialty Start Date End Date No Ref-Primary, Physician PCP - General 05/08/23 documented as of this encounter"
--- OUTSIDE RECORDS SUMMARY | 2023-08-25 14:00 | XMS_ITS | Encounter Summary ---
Author Organization [place] Address [address] [facility] [place] [address] Care Team Providers Care Monorail Crane Operator Name Role Phone No Ref-Primary, Physician Primary Care Provider Encounter Details Date Type Department Care Team (Late st Contact Info) Description 06/01/2023 Telephone [facility] [place] [address] [place], [place] [address] Kody Davey [address] [place] [address] Social History Tobacco Use Types [...] as needed moving forward Kody Davey MS, [facility] Licensed Genetic Counselor Pager: [phone] documented in this encounter Plan of Treatment Upcoming Encounters Date Type Department Care Team (Late st Contact Info) Description 08/31/2023 2:15 PM CDT Appointment [facility] Maternal Medicine [facility] [address] [place] [phone] Hetal Parra MD [address] [address] [id number] 08/31/2023 2:45 PM CDT Office Visit [facility] Medicine [facility] [address] [place], [place] [address] Hetal Parra MD [address] [address] [address] 08/31/2023 3:00 PM CDT Office Visit [facility] Medicine [facility] [address] [place], [place] [address] Hetal Parra MD [address] [address] [id number] 08/31/2023 3:00 PM CDT Office Visit [facility] Maternal Medicine [facility] [address] [place], [place] [address] Hetal Parra MD [address] [address] [address] documented as of this encounter Visit Diagnoses Not on filedocumented in this encounter Care Teams Monorail Crane Operator Relationship Specialty Start Date End Date No Ref-Primary, Physician PCP - General 05/08/23 documented as of this encounter
--- OUTSIDE RECORDS SUMMARY | 2023-08-25 14:00 | XMS_ITS | Encounter Summary ---
Author Organization [place] Address [address] [facility] [place] [address] Care Team Providers Care Sprayer Machine Name Role Phone No Ref-Primary, Physician [...] 08/31/2023 2:[address] [facility] Maternal Medicine Center [place] [address] [address] Hetal Parra MD [address] [address] 08/31/2023 2:45 PM CDT Office Visit [facility] [place] [address] [place], [place] [address] Hetal Parra MD [address] [address] 08/31/2023 3:00 PM CDT Office Visit [facility] [place] [address] [address] Hetal Parra MD [address] [facility] [address] [place], [place] [address] 08/31/2023 3:00 PM CDT Office Visit [facility] Maternal Medicine [facility] [address] [address] Hetal Parra MD [address] [address] documented as of this encounter Visit Diagnoses Not on filedocumented in this encounter Care Teams Sprayer Machine Relationship Specialty Start Date End Date No Ref-Primary, Physician PCP - General 05/08/23 documented as of this encounter
--- OUTSIDE RECORDS SUMMARY | 2023-08-25 14:00 | XMS_ITS | Encounter Summary ---
Author Organization [facility] Address [address] [place] [address] Care Team Providers Care Metal Checker Name Role Phone No Ref-Primary, Physician Primary Care Provider Reason for Referral * Diagnostic Imaging Ultrasound (Routine) - Pending Review Specialty Diagnoses / Procedures [facility] Referred To Contact Radiology. Diagnoses abnormality affecting management of mother, single or unspecified fetus Procedures [facility] US Comprehensive Single F/U Swati Hurst MD [address] [place] [address] Referral ID Status Reason Start Date Expiration Date V isits Requested Visits Authorized [id number] Pending Review 06/01/2023 05/31/2024 1 1 Reason for Visit * Diagnostic Imaging Ultrasound (Routine) - Pending Review Specialty Diagnoses / Procedures Referred By Contac Referred To Contact Radiology. Diagnoses abnormality affecting management of mother, single or unspecified fetus Procedures [facility] US Comprehensive Single F/U Swati Hurst MD [address] [facility] [address] [place] [address] Referral ID Status Reason Start Date Expiration Date V isits Requested Visits Authorized [id number] Pending Review 06/01/2023 05/31/2024 1 1 Encounter Details Date Type Department Care Team (Latest Contact Info) Description 06/29/2023 2:15 PM CDT - 06/29/2023 11:59 PM CDT Hospital Encounter [facility] [place] [address] [place] [phone] Swati Hurst MD [address] [place], [place] [address] [id number] abnormality affecting management of mother, single or [...] Info) Description 08/31/2023 2:15 PM CDT Appointment [facility] [place] [address] [place] [address] Hetal Parra MD [address] [place], [place] [address] [address] [address] 08/31/2023 2:45 PM CDT Office Visit [facility] [address] [place] [address] Hetal Parra MD [address] [address] [address] 08/31/2023 3:00 PM CDT Office Visit [facility] [address] [place] [address] Hetal Parra MD [address] [address] 08/31/2023 3:00 PM CDT Office Visit [facility] [place] [address] [place], [place] [address] Hetal Parra MD [address] [place] [address] [place], [place] [address] documented as of this encounter Procedures Procedure Name Priority Date/Time Associated Diagnosis Comments [facility] US COMPREHENSIVE SINGLE F/U Routine 06/29/2023 2:58 PM CDT abnormality affecting management of mother, single or unspecified fetus documented in this encounter Results * [facility] US Comprehensive Single F/U (06/29/2023 2:58 [...] ? Study Date: ??06/29/2023 2:20pm Pat. NO: ??[id number] ?Referring ??MD: FRANCIA GILMAN Site: ??[facility] ? Termite Technician: Mumtaz Ventura RDMS : ??2000 ?Age: ?? [...] 2 lb 3 ?oz EFW by ?Hadlock ([id number]-FL) Head / Face / Neck Biometry: Boat Fueler ? 4.6 ? mm CM ?4.7 ? mm ANATOMY ----- The following structures appear abnormal: Heart / Thorax ?4-chamber view: left side of heart is smaller than the right. . 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 . 3-vessel view: small aorta. 5-cquuxx-avzbaxi view: small aorta . The following structures [...] on PGE. Plan for repeat assessment with [facility] of cardiac anatomy and growth in 4 weeks. She will likely need to delivery at [place], however, will plan to reevaluate following her [...] the patient (reviewing medical records/tests), in direct ouzw-kc-jhoh contact with the patient during her visit with the majority spent counseling and discussing the plan of care and documenting the visit in the electronic medical record. Please see note for details. Procedure Note Swati Hurst MD - 07/03/2023 Comp Follow Up ----- Pat. Name: GRZEGORZ AN RA Study Date: 06/29/2023 2:20pm Pat. NO: [id number] Referring MD: FRANCIA GILMAN Site: [facility] Termite Technician: Mumtaz Ventura RDMS : 2000 Age: 22 [...] 2 lb 3 oz EFW by [place] ([id number]-ZU-DT-FL) Head / Face / Neck Biometry: Boat Fueler 4.6 mm CM 4.7 mm ANATOMY ----- The following structures appear abnormal: Heart / Thorax 4-chamber view: left side of heart issmaller than the right. . LVOT view: mitral valve hypoplasia . Aortic archview: hypoplasia of aortic isthmus . 3-vessel view: small aorta.6-myhgpm-pnydqns view: small aorta . The following structures [...] cardiac abnormality. 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 Per cardiology, this anatomy may be dependenton PGE. Plan for repeat assessment with [facility] of cardiac anatomy and growth in4 weeks. She will likely need to delivery at [place], however, will planto reevaluate following her next [...] see the patient (reviewing medical records/tests), in ncqigydfbh-sm-gdee contact with the patient during her visit [...] volume appeared normal. Swati Hurst MD IMG [facility] US ORDERABLE S documented in this encounter Visit Diagnoses Diagnosis abnormality affecting management of mother, single or unspecified fetus documented in this encounter Care Teams Metal Checker Relationship Specialty Start Date End Date No Ref-Primary, Physician PCP - General 05/08/23 documented as of this encounter
--- OUTSIDE RECORDS SUMMARY | 2023-08-25 14:00 | XMS_ITS | Encounter Summary ---
Author Organization [facility] Address [address] [facility] [place] [address] Care Team Providers Care Foundry Helper Name Role Phone No Ref-Primary, Physician Primary Care Provider Reason for Referral * Diagnostic Imaging Ultrasound (Routine) - Pending Review Specialty Diagnoses / Procedures Referred By Contac t Referred To Contact Radiology. Diagnoses Congenital heart defect Procedures [facility] US Comprehensive Single F/U Swati Hurst MD [address] [place] [address] [place] [address] Referral ID Status Reason Start Date Expiration Date V isits Requested Visits Authorized [id number] Pending Review 06/29/2023 06/28/2024 1 1 Reason for Visit * Reason Comments Ultrasound RL2-CHD Encounter Details Date Type Department Care Team (Late st Contact Info) Description 06/29/2023 2:45 PM CDT Office Visit [facility] [place] [address] [facility] [address] [place] [address] Swati Hurst MD [address] [place] [address] [place] [address] Congenital heart defect (Primary Dx) [...] 06/29/2023 2:45 PM CDT Patient presents to [facility] for RL2 at 26w3d due to CHD. Positive movement. Denies LOF, vaginal bleeding or cramping/contractions. SBAR given to [facility] , see their note in Epic. documented in this encounter Plan of Treatment Upcoming Encounters Date Type Department Care Team (Late st Contact Info) Description 08/31/2023 2:15 PM CDT Appointment [facility] [place] [address] [place] [phone] Hetal Parra MD [address] [address] 08/31/2023 2:45 PM CDT Office Visit [facility] [place] [address] [place] [address] Hetal Parra MD [address] [address] 08/31/2023 3:00 PM CDT Office Visit [facility] [place] [address] [place] [address] Hetal Parra MD [address] [address] 08/31/2023 3:00 PM CDT Office Visit [facility] [address] [place] [address] Hetal Parra MD [address] [place] [address] [place] [address] documented as of this encounter [...] ? Study Date: ??07/31/2023 2:19pm Pat. NO: ??[id number] ?Referring ??MD: FRANCIA GILMAN Site: ??[facility] ? Flour Worker: Justyna Calixto RDMS : ??2000 ?Age: ?? [...] lb 11 ? oz EFW by ?Hadlock (ZHE-ME-GL-FL) Head / Face / Neck Biometry: Vaccine Key Customer Leader ? 4.0 ? mm CM ?5.2 ? mm ANATOMY ----- The following structures appear abnormal: Heart / Thorax ?4-chamber view: See Echo report by [facility] from 05/20/2023. LVOT view. 3-vessel view. 1-mubrcx-taldzpq view. The following structures appear normal: Head [...] NARAYAN Study Date: 07/31/2023 2:19pm Pat. NO: [id number] Referring MD: FRANCIA GILMAN Site: [facility] Flour Worker: Justyna Calixto RDMS : 2000 Age: 22 [...] 3 lb 11 oz EFW by Hadlock ([id number]-OU-BO-FL) Head / Face / Neck Biometry: Vaccine Key Customer Leader 4.0 mm CM 5.2 mm ANATOMY ----- The following structures appear abnormal: Heart / Thorax 4-chamber view: See Echo reportby [facility] from 05/20/2023. LVOT view. 3-vessel view.8-nldjnw-srsiage view. The following structures appear normal: Head [...] fluid volume appeared normal. Swati Hurst MD [facility] US ORDERABLE S documented in this encounter Visit Diagnoses Diagnosis Congenital heart defect- Primary Unspecified congenital anomaly of heart Congenital heart defect Unspecified congenital anomaly of heart documented in this encounter Care Teams Foundry Helper Relationship Specialty Start Date End Date No Ref-Primary, Physician PCP - General 05/08/23 documented as of this encounter
--- OUTSIDE RECORDS SUMMARY | 2023-08-25 14:00 | XMS_ITS | Encounter Summary ---
Author Organization [facility] Address [address] [facility] [place] [address] Care Team Providers Care Manager Research Development Name Role Phone No Ref-Primary, Physician Primary [...] CDT Appointment [facility] [place] [address] [place] [phone] Hetal Parra MD [address] [address] 08/31/2023 2:45 PM CDT Office Visit [facility] [place] [address] [place], [place] [address] Hetal Parra MD [address] [address] 08/31/2023 3:00 PM CDT Office Visit [facility] [place] [address] [place] [address] Hetal Parra MD [address] [facility] [address] [place], [place] [address] 08/31/2023 3:00 PM CDT Office Visit [facility] [address] [place] [address] Hetal Parra MD [address] [address] documented as of this encounter Visit Diagnoses Not on filedocumented in this encounter Care Teams Manager Research Development Relationship Specialty Start Date End Date No Ref-Primary, Physician PCP - General 05/08/23 documented as of this encounter
[2023-08-25 14:04] VITALS: PULSE 89; O2SAT 96
[2023-08-25 14:05] VITALS: PULSE 88; O2SAT 94
[2023-08-25 14:06] VITALS: BP 118/65; PULSE 85
[2023-08-25 14:09] VITALS: PULSE 93; O2SAT 96
[2023-08-25 14:15] VITALS: RESP 16; TEMP 37.1
[2023-08-25] MEDS: ONDANSETRON 2 MG/ML inj 8 MG IVP (15:10)
[2023-08-25] MEDS: LACTATED RINGERS 1000 ML 1,000 ML IV (15:10)
[2023-08-25] MEDS: ACETAMINOPHEN 500 MG TABLET 1000 MG PO (15:56)
[2023-08-25] MEDS: CALCIUM CARBONATE 500 MG CHEW PO (15:57)
[2023-08-25 15:59] VITALS: BP 108/59; PULSE 75
--- NOTE | 2023-09-03 14:14 | PC.OBNST ---
NST Note NST Note Start: 08/25/23 14:01 Freq: ONCE Status: Discharge Protocol: Document 08/25/23 14:01 [facility] (Rec: 08/25/23 16:41 [facility] [id number]) NST Note 1 Para (# of births) 0 EDC 10/02/23 Gestational Age In Weeks & Days 34 Weeks & 4 Days Patient Presented with Complaint(s) of Pain,Nausea and vomiting If Pain, describe location headache unresolved with 500mg tylenol. Reactive Yes Appropriate for Gestational Age Yes RN Case RN Date 08/25/23 Reactive Yes Appropriate for Gestational Age Yes RN Jinny RN Date 08/25/23 OB NST charge Yes Complete NST Note via Write Note Yes The provider's electronic signature indicates the NST is reactive/appropriate for gestational age. *Note to provider: If an addendum is required, open the patient's chart and click on the note under the Nurse/Allied Health tab.
== END 2023-08-25 16:50 | disposition home or self-care (01) ==
LOC: OB OUT 13:57 → OB 13:57
PROVIDERS: Visit Provider Obstetrics & Gynecology
DX: O26.893 Other specified pregnancy related conditions, third trimester (principal); R11.2 Nausea with vomiting, unspecified; R51.9 Headache, unspecified; Z3A.34 34 weeks gestation of pregnancy
CPT/HCPCS: 59025; G0463; A9270; J2405; J7120

== ENCOUNTER 2023-08-28 13:44 | Outpatient (CLI) | payer MEDICAID, SELFPAY ==
--- NOTE | 2023-08-28 14:00 | CRLHL7_ITS ---
For Patients: As a result of the Cures Act, medical imaging exams and procedure reports are released immediately into your electronic medical record. You may view this report before your referring provider. If you have questions, please contact your health care provider. INDICATION: Congenital heart defect. COMPARISON: Ob ultrasound from 08/13/2023. FINDINGS: Transabdominal examination of the is performed. A single intrauterine gestation is seen in cephalic presentation with regular cardiac activity at 131 beats per minute. The placenta is posterior and is free of the cervical os. The placental grade is 2 and the amniotic fluid volume is normal. The DVP is normal at 3.2 cm, decreased compared to the previous study where it measured 5.4 cm. The biophysical profile score is 8/8 with no points off. IMPRESSION: Single intrauterine gestation in cephalic presentation with regular cardiac activity. Normal DVP at 3.2 cm, decreased from the previous study. Normal biophysical profile score of 8/8. Dictated by Mansoor Vasquez MD @ 08/31/2023 12:12:17 AM (Electronically Signed)
== END 2023-08-28 13:45 | disposition home or self-care (01) ==
LOC: US 13:44
PROVIDERS: Visit Provider Obstetrics & Gynecology
DX: O35.BXX0 Maternal care for other (suspected) fetal abnormality and damage, fetal cardiac anomalies, not applicable or unspecified (principal)
CPT/HCPCS: 76819

== ENCOUNTER 2023-09-04 12:31 | Outpatient (CLI) | payer MEDICAID, SELFPAY ==
--- OUTSIDE RECORDS SUMMARY | 2023-09-04 12:32 | XMS_ITS | Clinical Summary ---
Author Organization [facility] Address [address] [place] [address] Care Team Providers Care Parent Coach Name Role Phone No Ref-Primary, Physician Primary Care Provider Allergies Active Allergy Reactions Criticality Noted Date Comments [place] Extract Difficulty breathing,Rash,Shortness Of Breath High 01/03/2020 Medications Medication Sig Dispensed Refills Start Date End Date Status ASPIRIN 81 PO Take 81 mg by mouth daily 03/17/2023 Active Vit-Fe Fumarate-FA ( VITAMIN PO) Take 1 tablet by mouth daily Active calcium carbonate (TUMS) 500 MG chewable tablet Take 1 chew tab by mouth 2 times daily Active omeprazole (PRILOSEC) [address] capsule Take 10 mg by mouth daily 08/28/2023 Active ondansetron (ZOFRAN) 4 MG tablet Take 4 mg by mouth every 6 hours as needed for nausea 08/28/2023 Active Active Problems Patient Care Coordination No te Formatting of this note is d ifferent from the original. [facility] Care Plan: For details of imaging, genetic testing and consultations, please see the maternal medical record: Rosemary An MR#:[id number] Delivery hospital: [facility] DIAGNOSIS: DIAGNOSIS / DIAGNOSES: 1) CHD-Shone's Complex, coarcation of the aorta GENETIC (and other) TESTING: MaterniT Genome neg PERTINENT MATERNAL CONDITIONS: 1) + Chlamydia 02/16/23 CARE PLAN: 1) Ultrasounds - q 4 08/30 2) Other Imaging - echo 05/19, 07/13, 08/18- no further echoes 3) surveillance - weekly BPP at 32 weeks, Fridays in [place] 4) Relocation - 5) care with - [place] 6) Labs - (look in media tab / care everywhere for results) Blood type: O+ Ab screen: neg HepBSAg: neg Rubella: Immune RPR: NR HIV: neg Hep C: neg GCT: 88 06/29/13 GBS: pending 08/30 PAP: needs PP 7) Vaccines: Tdap- 07/27 Flu Vaccine- 8) PHQ-9: 9) care team and consultations - A) Genetic Counselor - Kody Davey; GC appt 08/30 B) Neonatology - 08/18 Dr. Kapadia C) Social Work - Annabelle D) CV Surg- TBD DELIVERY PLAN: 1) Hospital - [facility] 2) Gestational age - IOL 39w3d 0730 09/28/23 3) Route - 4) Notifications in labor - 5) Genetics/specimen collection for baby: Needs consent for cordblood testing ([id number]) 08/30 BABY PLAN: 1) Baby to go [...] delivery. REFERRING PROVIDER(S): 1) Primary OB Provider: [facility] 2) Other Sub-Specialty Provider: 3) Anticipated Pediatric Provider: DEMOGRAPHICS: Patient contact info: [address] [facility] [address] Partner's name: Aries Baby's name: Estimated Date of Delivery Comme nts Yes 10/02/2023 Based on Ultraso und No additional problems on file Encounters Date Type Department Care Team Description 09/02/2023 MyC Medical Advice [facility] [address] [facility] [address] [place] [phone] Soumya Rodriguez LPN 08/31/2023 3:00 PM CDT Office Visit [facility] [place] [address] [place] [address] Hetal Parra MD Johnson, Kate Talbot, CNM Supervision of high risk in third trimester (Primary Dx); complicated by congenital heart disease, single or unspecified fetus 08/31/2023 3:00 PM CDT Office Visit [facility] [address] [place] [address] Hetal Parra MD Stoner, Natalie E Abnormal ultrasound (Primary Dx); Encounter for procreative genetic counseling and testing 08/31/2023 2:45 PM CDT Office Visit [facility] [address] [place] [address] Hetal Parra MD complicated by congenital heart disease, single or unspecified fetus (Primary Dx) 08/31/2023 2:13 PM CDT - 08/31/2023 11:59 PM CDT Hospital Encounter [facility] [address] [facility] [phone] Hetal Parra MD related condition, antepartum Discharge Disposition: Home or Self Care 08/31/2023 Travel 08/19/2023 12:15 PM CDT Office Visit [facility] [address] [place] [address] Leyda Guzman MD complicated by congenital heart disease, single or unspecified fetus (Primary Dx) 08/19/2023 11:45 AM CDT - 08/19/2023 11:59 PM CDT Hospital Encounter [facility] [address] [place] [phone] Leyda Guzman MD related condition, antepartum Discharge Disposition: Home or Self Care 08/19/2023 10:00 AM CDT Office Visit [facility] [address] [place] [address] Gudelia Sahni CNM related condition, antepartum 08/19/2023 9:30 AM CDT Office Visit [facility] [address] [place] [address] Gudelia Sahni CNM Supervision of high risk in third trimester (Primary Dx); complicated by congenital heart disease, single or unspecified fetus 08/19/2023 9:25 AM CDT - 08/19/2023 11:44 AM CDT Hospital Encounter [facility] [address] [place] [phone] Leyda Guzman MD Urmfmusfet Anomaly of heart of fetus affecting , antepartum, single or unspecified fetus Discharge Disposition: Home or Self Care 08/19/2023 Office Visit [facility] [address] [place] [phone] Yonatan Black MD cardiac disease affecting , single or unspecified fetus (Primary Dx) 08/19/2023 Documentation Only [facility] CASE MANAGEMENT [phone] Edda Ohara SNOW MAKER 08/19/2023 Orders Only [facility] [address] [place] [phone] Carlos Alberto Leonard MD Anomaly of heart of fetus affecting , antepartum, single or unspecified fetus (Primary Dx) 08/19/2023 Travel 08/17/2023 MyC Medical Advice [facility] [address] [place] [phone] Soumya Rodriguez LPN 08/04/2023 Orders Only [facility] [address] [place] [address] Louise Haley GC Abnormal ultrasound (Primary Dx) 08/04/2023 Telephone [facility] [address] [place] [address] Shaunna Nolasco RN Appointment 08/04/2023 Orders Only [facility] [place] [address] [place] [address] Shaunna Nolasco RN related condition, antepartum (Primary Dx) 08/03/2023 Telephone [facility] [address] [place] [address] Shaunna Nolasco RN Appointment 08/03/2023 Orders Only [facility] [address] [place] [address] Shaunna Nolasco RN related condition, antepartum (Primary Dx) 07/31/2023 2:45 PM CDT Office Visit [facility] [address] [place] [phone] Jair Sanchez MD complicated by congenital heart disease, single or unspecified fetus (Primary Dx) 07/31/2023 2:08 PM CDT - 07/31/2023 11:59 PM CDT Hospital Encounter [facility] [address] [place] [phone] Jair Sanchez MD Congenital heart defect Discharge Disposition: Home or Self Care 07/31/2023 Travel 07/14/2023 7:45 AM CDT - 07/14/2023 11:59 PM CDT Hospital Encounter [facility] [address] [place] [phone] Yifan Aponte MD Anomaly of heart of fetus affecting , antepartum, single or unspecified fetus Discharge Disposition: Home or Self Care 07/14/2023 Office Visit [facility] [address] [place] [phone] Carlos Alberto Leonard MD cardiac disease affecting , single or unspecified fetus (Primary Dx) 07/14/2023 Travel 07/07/2023 Orders Only [facility] [address] [place] [address] [facility] [address] [place] [address] Yifan Aponte MD Anomaly of heart of fetus affecting , antepartum, single or unspecified fetus (Primary Dx) 06/29/2023 2:45 PM CDT Office Visit [facility] [place] [address] [facility] [address] [place] [phone] Swati Hurst MD Congenital heart defect (Primary Dx) 06/29/2023 2:15 PM CDT - 06/29/2023 11:59 PM CDT Hospital Encounter [facility] [address] [facility] [address] [place] [phone] Swati Hurst MD abnormality affecting management of mother, single or unspecified fetus Discharge Disposition: Home or Self Care 06/29/2023 Travel from Last 3 Months Immunizations Name [...] Sign [place] Time Taken Comments Blood Pressure 123/79 08/31/2023 3:20 PM CDT Pulse 78 08/31/2023 3:20 PM CDT Temperature - - Respiratory Rate 18 08/31/2023 3:20 PM CDT Oxygen Saturation 99% 08/31/2023 3:20 PM CDT Inhaled Oxygen Concentration - - Weight 99.6 kg (219 lb 9.6 oz) 08/31/2023 3:20 P M CDT Height 157.5 cm (5' 2) 08/19/2023 12:53 PM CDT Body Mass Index 40.17 08/19/2023 12:53 PM CDT Plan of Treatment Upcoming Encounters Date Type Department Care Team (Late st Contact Info) Description 09/28/2023 7:30 AM CDT Appointment Danita Starr [facility] [address] [place] [address] [place] [phone] Health Maintenance Due Date Last Done Comments [...] MATERNAL SCREENING DISCUSSION 03/06/2023 OBGCT (OB) 06/12/2023 DTAP/TDAP/TD IMMUNIZATION (3 - Td or Tdap) 01/28/2024 07/28/2023, 07/19/2019 PAP 09/12/2025 09/12/2022, 09/12/2022 HPV IMMUNIZATION Completed 12/11/2021, 07/11/2021, 05/20/2021 COVID-19 Vaccine Completed 03/17/2023, 05/14/2020, 04/16/2020 INFLUENZA VACCINE Completed 03/17/2023 PHQ-2 (once per calendar year) Completed 08/19/2023, 08/19/2023 GROUP B STREP SCREENING Completed 08/31/2023 IPV IMMUNIZATION Aged Out No longer e [...] Procedure Name Priority Date/Time Associated Diagnosis Comments GROUP B STREP PCR Routine 08/31/2023 3:4 7 PM CDT Supervision of high risk in third trimester [facility] COMPREHENSIVE SINGLE F/U Routine 08/31/2023 2:52 PM CDT related condition, antepartum [facility] BPP SINGLE Routine 08/19/2023 12:31 PM CDT related condition, antepartum ECHO COMPLETE Routine 08/19/2023 1 1:23 AM CDT Anomaly of heart of fetus affecting , antepartum, single or unspecified fetus [facility] COMPREHENSIVE SINGLE F/U Routine 07/31/2023 2:45 PM CDT Congenital heart defect ECHO COMPLETE Routine 07/14/2023 1 0:10 AM CDT Anomaly of heart of fetus affecting , antepartum, single or unspecified fetus [facility] COMPREHENSIVE SINGLE F/U Routine 06/29/2023 2:58 PM CDT abnormality affecting management of mother, single or unspecified fetus from Last 3 Months Results * Group B strep PCR (08/31/2023 3:47 PM CDT) Group B Strep PCR Negative Negative 024 11:54 AM CDT [facility] Comment:Presumed negative fo r Streptococcus agalactiae (Group B Streptococcus) or the number of organisms may be below the limit of detection of the assay. Swab STRUCTURE OF RECTOVAGINAL SEPTUM / Unknown Non-blood Collection / Unknown 08/31/2023 3:47 PM CDT 08/31/2023 4:06 PM CDT Narrative [facility] - 09/01/2023 11:54 AM CDT The Profind Xpert GBS LB Assay, performed on the [employer]?? Instrument Systems, is a qualitative in vitro diagnostic test designed to detect Group B Streptococcus (GBS) DNA from enriched vaginal/rectal swab specimens, using fully automated, real- time polymerase chain reaction (PCR) with fluorogenic detection of the amplified DNA. Xpert GBS LB Assay testing is indicated as an aid in determining GBS colonization status in antepartum women. This assay does not diagnose or monitor treatment for GBS infections. The CepDDRdriveid Xpert GBS LB Assay is intended for use in hospital, reference or state laboratory settings. The device is not intended for scgps-cu-gjco use. Gudelia Sahni [facility] - MICRO GENE RAL ORDERABLES [facility] Inf. Diseases Diag. Lab [address] [facility], [address] [place] [phone] * [facility] Single F/U (08/31/2023 2:52 PM CDT) Only the most recent of3 resultswithin the time period is included. Anatomical Region Laterality Modality Ultrasound 08/31/2023 2:23 PM CDT Impressions 09/01/2023 5:38 PM CDT IMPRESSION ----- 1. Law at 35w 3d gestational age. 2. 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 3. No other anomalies commonly detected by ultrasound were evident in the limited anatomic survey as described above. 4. Growth parameters and estimated weight were consistent with gestational age predicted by assigned JAYE. 5. The amniotic fluid volume appeared normal. 6. The BPP was 88. Narrative 09/01/2023 5:38 PM CDT ?Comp Follow Up ----- Pat. Name: ROSEMARY NARAYAN ? Study Date: ??08/31/2023 2:23pm Pat. NO: ??[id number] ?Referring ??MD: FRANCIA GILMAN Site: ? Tactical/Mobile Watch Officer: Kassie Jackson RDMS : ??2000 ?Age: ?? 23 ----- INDICATION ----- Congenital Heart Defect. METHOD ----- Transabdominal ultrasound examination. View: Sufficient ----- Law . Number of fetuses: 1 DATING ----- ? Date ?Details ?Gest. age ?JAYE LMP ?12/15/2022 ?Cycle: irregular cycle ? 37 w + 0 d ? 09/21/2023 Stated JAYE ?02/16/2023 ? 35 w + 3 d ? 10/02/2023 Previous U/S ? GA 7 w + 3 d U/S ? 08/31/2023 ? based upon AC, BPD, Femur, HC ?35 w + 2 d ? 10/03/2023 Assigned dating ?Dating performed on 05/08/2023, based on the prior assessment (on 02/16/2023) ?35 w + 3 d ? 10/02/2023 GENERAL EVALUATION ----- Cardiac activity present. FHR 158 bpm. movements: present. Presentation: cephalic Placenta: posterior, no previa > 2 cm from internal os Umbilical cord: Cord vessels: 3 vessel cord Amniotic fluid: normal MVP, MVP 5.8 cm BIOMETRY ----- BPD ? 89.0 ?mm ? 36w 0d ?Mecca BAUM ? 110.8 ?mm ? 33w 3d ? Nicolaides HC ? 317.3 ?mm ? 35w 5d ? Hadlock Cerebellum tr ?45.0 ?mm ? 39w 0d ? Nicolaides AC ? 317.8 ?mm ? 35w 5d ?66% ?Hadlock Femur ?65.4 ?mm ? 33w 5d ? Hadlock Humerus ? 55.7 ? mm ?32w 3d ?Ana Weight Calculation: EFW ?2,620 ?g ?42% ? Hadlock EFW (lb,oz) ?5 lb 12 ?oz Head / Face / Neck Biometry: Emery Wheel Molder ?4.8 ? mm CM ? 6.2 ? mm ANATOMY ----- The following structures appear abnormal: Heart / Thorax ?4-chamber view: coarctation of the aorta. LVOT view. 2-uvvmam-fjldsft view. The following structures appear normal: Head / Neck ? Cranium. Head size. Head shape. Lateral ventricles. Midline falx. Cavum septi pellucidi. Cerebellum. Cisterna magna. Thalami. Face ? Lips. Profile. Nose. Heart / Thorax ?RVOT view. ? Diaphragm. Abdomen ? Stomach. Kidneys. Bladder. Spine ?Cervical spine. Thoracic spine. Lumbar spine. Sacral spine. sex: male. BIOPHYSICAL PROFILE ----- 2: breathing movements 2: Gross body movements 2: tone 2: Amniotic fluid volume 8/8 Biophysical profile score MATERNAL STRUCTURES ----- Cervix ?Suboptimal Right Ovary ?Not examined Left Ovary ?Not examined RECOMMENDATION ----- Your patient was seen today for ultrasound assessment and a return OB visit with our office. Please see documentation in Epic for full details from today's visit and ongoing recommendations. Continue weekly surveillance (scheduled with [place]). She is scheduled for induction on 09/27. If you have questions regarding today's evaluation or if we can be of further service, please contact the Maternal- Medicine Center. anomalies may be present but not detected Procedure Note Hetal Parra MD - 09/01/2023 Comp Follow Up ----- Pat. Name: ROSEMARY NARAYAN Study Date: 08/31/2023 2:23pm Pat. NO: [id number] Referring MD: FRANCIA GILMAN Site: Tactical/Mobile Watch Officer: Kassie Jackson RDMS : 2000 Age: 23 ----- INDICATION ----- Congenital Heart Defect. METHOD ----- Transabdominal ultrasound examination. View: Sufficient ----- Law . Number of fetuses: 1 DATING ----- DateDetailsGest. age JAYE LMP 12/15/2022ycle: irregular cycle37 w + 0 d 09/21/2023 Stated JAYE w + 3 d 10/02/2023 Previous U/SGA 7 w + 3 d U/S 08/31/2023ased upon AC, BPD, Femur, HC35 w + 2 d 10/03/2023 Assigned dating Dating performed on 05/08/2023, based onthe prior assessment (on 02/16/2023) 35 w + 3 10/02/2023 GENERAL EVALUATION ----- Cardiac activity present. FHR 158 bpm. movements: present.Presentation: cephalic Placenta: posterior, no previa > 2 cm from internal os Umbilical cord: Cord vessels: 3 vessel cord Amniotic fluid: normal MVP, MVP 5.8 cm BIOMETRY ----- BPD 89.0mm 36w 0dHadlock OFD 110.8mm 33w 3dNicolaides HC 317.3mm 35w 5dHadlock Cerebellum tr 45.0mm 39w 0dNicolaides AC 317.8mm 35w 5d 66%Hadlock Femur 65.4mm 33w 5dHadlock Humerus 55.7mm 32w 3dJeanty Weight Calculation: EFW 2,620g 42%Hadlock EFW (lb,oz) 5 lb 12oz Head / Face / Neck Biometry: Emery Wheel Molder 4.8mm CM 6.2mm ANATOMY ----- The following structures appear abnormal: Heart / Thorax 4-chamber view: coarctation of theaorta. LVOT view. 0-npgefn-impulrd view. The following structures appear normal: Head / Neck Cranium. Head size. Head shape.Lateral ventricles. Midline falx. Cavum septi pellucidi. Cerebellum.Cisterna magna. Thalami. Face Lips. Profile. Nose. Heart / Thorax RVOT view. Diaphragm. Abdomen Stomach. Kidneys. Bladder. Spine Cervical spine. Thoracic spine.Lumbar spine. Sacral spine. sex: male. BIOPHYSICAL PROFILE ----- 2: breathing movements 2: Gross body movements 2: tone 2: Amniotic fluid volume 10/21 Biophysical profile score MATERNAL STRUCTURES ----- Cervix Suboptimal Right Ovary Not examined Left Ovary Not examined RECOMMENDATION ----- Your patient was seen today for ultrasound assessment and a return OBvisit with our office. Please see documentation in Epic for full details from today's visit andongoing recommendations. Continue weekly surveillance (scheduled with [place]). She isscheduled for induction on 09/27. If you have questions regarding today's evaluation or if we can be offurther service, please contact the Maternal- Medicine Center. anomalies may be present but not detected IMPRESSION ----- 1. Law at 35w 3d gestational age. 2. Complex cardiac defect again visualized - shone's complex -coarctation of the aorta, retrograde diastolic flow in transverse arch,mild/moderate MV annulus hypoplasia, narrowed LVOT, likely bicuspid aortic valve, normal RV size. 3. No other anomalies commonly detected by ultrasound were evident in thelimited anatomic survey as described above. 4. Growth parameters and estimated weight were consistent withgestational age predicted by assigned JAYE. 5. The amniotic fluid volume appeared normal. 6. The BPP was 10/21. Jair Sanchez MD IMG MFM US ORDERABL ES * MFM BPP Single (08/19/2023 12:31 PM CDT) Anatomical Region Laterality Modality Ultrasound 08/19/2023 12:1 1 PM CDT Impressions 08/19/2023 4:47 PM CDT IMPRESSION ----- 1) Law intrauterine at 33w 5d gestational age. 2) The BPP is reassuring. 3) The amniotic fluid volume appeared normal. Narrative 08/19/2023 4:47 PM CDT ?BPP ----- Pat. Name: ROSEMARY NARAYAN ? Study Date: ??08/19/2023 12:11pm Pat. NO: ??[id number] ?Referring ??: GUDELIA SAHNI Site: ??[facility] ? Tactical/Mobile Watch Officer: Molly Bernal RDMS : ??2000 ?Age: ?? [...] NARAYAN Study Date: 08/19/2023 12:11pm Pat. NO: [id number] Referring MD: GUDELIA SAHNI Site: [facility] Tactical/Mobile Watch Officer: Molly Bernal RDMS : 2000 Age: 22 [...] fluid volume appeared normal. J[facility] * ECHO COMPLETE (08/19/2023 11:23 AM CDT) Anatomical Region Laterality Modality Ultrasound 08/19/2023 10:5 5 AM CDT Narrative 08/20/2023 8:33 AM CDT [id number]^HORACIO^CARLOS ALBERTO ? Study ID: [id number] ?[facility] ?[facility] ?[address] ?[place] [address] ? Echocardiogram Name: ROSEMARY NARAYAN Study Date: 08/19/2023 10:55 AM ?Patient Location: [facility] Gender: Female ? Patient Class: Outpatient : 2000 ?Age: 22 yrs Ordering Provider: CARLOS ALBERTO LEONARD Referring Provider: FRANCIA GILMAN Performed By: Fabiola Sahni [place] Physician: Yonatan Black MD Reason For Study: Anomaly of heart of fetus affecting , antepartum, singl Data: Number of fetuses: This is a law gestation. Due date: 10/02/2023. Gestational age: 33w5d. Delivery at: [facility]. Specific Indication: echocardiogram performed for suspected coarctation [...] to the patient. [facility] [...] to the left atrium. There is laminar yahaf-rh-endd shunting across the foramen ovale. Atrioventricular valves: [...] Procedure Note Yonatan Black MD - 08/20/2023 [id number] [facility] [id number]^HORACIO^CARLOS ALBERTO Study ID:[id number] [facility] [address] [place] [address] Echocardiogram Name: WILFRIDO AN, ROSEMARY Nenita Study Date: 08/19/2023 10:55 AM Patient Location:[facility] Gender: Female Patient Class:Outpatient : 2000 Age: 22 yrs Ordering Provider: CARLOS ALBERTO LEONARD Referring Provider: FRANCIA GILMAN Performed By: Fabiola Sahni Physician: Yonatan Black MD Reason For Study: Anomaly of heart of fetus affecting ,antepartum, singl Data: Number of fetuses: This is a law gestation. Duedate: 10/02/2023. Gestational age: 33w5d. Delivery at: [facility]. Specific Indication: echocardiogram performed for suspected coarctation [...] to the patient. [facility] [...] in to the left atrium. There is hgrdmcutsphl-ev-fedl shunting across the foramen ovale. Atrioventricular valves: [...] PEDS ECHO ORDERAB LES * ECHO COMPLETE (07/14/2023 10:10 AM CDT) Anatomical Region Laterality Modality Echocardiography 07/14/2023 8:18 AM CDT Narrative 07/14/2023 10:23 AM CDT [id number]^APONTE^YIFAN ? Study ID: [id number] ?[facility] ?[facility] ?[address] ?[place] [address] ? Echocardiogram Name: ROSEMARY NARAYAN Study Date: [...] to the left atrium. There is laminar sdlax-bv-vkqn shunting across the foramen ovale. Atrioventricular valves: [...] Note Carlos Alberto Leonard MD - 07/14/2023 [id number]^ASTON^YIFAN Study ID:[id number] [facility]'[address] [address] Echocardiogram Name: ROSEMARY NARAYAN Study Date: 07/14/2023 08:18 AM Patient Location: [facility] Gender: Female Patient Class:Outpatient [...] blood. pressure gradient. Delivery is recommended [facility]. Cardiology consultation and echocardiogram isrecommended immediately after [...] in to the left atrium. There is fnxlgkazlbtn-hj-fxrw shunting across the foramen ovale. Atrioventricular valves: [...] LES from Last 3 Months Care Teams Parent Coach Relationship Specialty Start Date End Date No Ref-Primary, Physician PCP - General 05/08/23
--- OUTSIDE RECORDS SUMMARY | 2023-09-04 12:33 | XMS_ITS | Encounter Summary ---
Author Organization [place] Address [address] [facility] [place] [address] Care Team Providers Care Fireworks Assembler Name Role Phone No Ref-Primary, Physician Primary Care Provider Reason for Visit * Reason Onset Date Comments Appointment 08/04/2023 Encounter Details Date Type Department Care Team (Late st Contact Info) Description 08/04/2023 Telephone [facility] [place] [address] [place] [address] Shaunna Nolasco, RN Appointment Social History Tobacco [...] Phone call to Rosemary to discuss upcoming [facility] appointments and echo. Pt agreed to come to [place] for multiple appointments on 08/18. Plan: Pt will have weekly BPP starting at 32 weeks. These will be done in [place] unless patient is coming to [facility]. Serial growth q 4 weeks. Pt will come to [facility] on 08/18 for NICU consult, ob visit, echo, BPP. Will discuss delivery date and further planning at this visit. Shaunna Nolasco RN documented in this encounter Plan of Treatment Upcoming Encounters Date Type Department Care Team (Late st Contact Info) Description 09/28/2023 7:30 AM CDT Appointment [facility] Birthplace [address] [place] [address] [place] [address] documented as of this encounter Visit Diagnoses Not on filedocumented in this encounter Care Teams Fireworks Assembler Relationship Specialty Start Date End Date No Ref-Primary, Physician PCP - General 05/08/23 documented as of this encounter
--- OUTSIDE RECORDS SUMMARY | 2023-09-04 12:33 | XMS_ITS | Encounter Summary ---
Author Organization [place] Address [address] [facility] [place] [address] Care Team Providers Care Cellophane Bag Machine Operator Name Role Phone No Ref-Primary, Physician Primary Care Provider Reason for Visit * Reason Comments Genetic Counseling CHD * Consultation (Routine: Next available opening) - Pending Review Specialty Diagnoses / Procedures Referred By Contac t Referred To Contact Diagnoses Abnormal ultrasound Swati Hurst MD [address] [address] Referral ID Status Reason Start Date Expiration Date V isits Requested Visits Authorized [id number] Pending Review 08/04/2023 08/03/2024 1 1 Encounter Details Date Type Department Care Team (Late st Contact Info) Description 08/31/2023 3:00 PM CDT Office Visit [facility] [place] [address] [place], [place] [address] Hetal Parra MD [address] [facility] [address] [place], [place] [address] Adriana Gómez GC [address] [place] [address] Abnormal ultrasound (Primary Dx); Encounter for procreative [...] as of this encounter Progress Notes * Adriana Gómez GC - 08/31/2023 3:00 PM CDT [facility] Medicine [place] Genetic Counseling Consult Patient: Rosemary Osborne Date of : 2000 Date of Service: 08/31/23 Rosemary Osborne was seen at [facility] for genetic consultation to discuss the options for genetic testing given coarctation of aorta. This session was observed with genetic counseling student, Destiny Lr, with patient permission. Impression/Plan: 1. Today we reviewed option of testing and inpatient genetics consultation due to coarctation of aorta. This was recommended by the pediatric genetics team. See documentation from Louise Haley on 08-04-23. Recommendation for SNP array with limited G-bands on cord blood at time of del martinez and inpatient genetics consult. Rosemary was unsure whether she wished to proceed with this recommendation and requested time to think about it. Plan was made for me to call her next week to checkin. She was also given my card should she wish to follow-up sooner. She has no further questions atthis time. 2. Rosemary has already met with genetic counseling previously during the to discuss her low-risk MaterniT Genome screening. Please see corresponding documentation for complete details. Discussion: We reviewed the option of SNP array with limited G-bands on cord blood testing ([id number]). We discussed possible results including positive, negative, and uncertainty. Array cannot completely rule outthe possibility of all genetic conditions such as single gene disorders. It was a pleasure to be involved with Rosemary 's care. Magl-xx-rkzi time of the meeting was <15 minutes. Adriana Gómez MS, [facility] Licensed Genetic Counselor [facility] Pager: [phone] Office: [phone] documented in this encounter Plan of Treatment Upcoming Encounters Date Type Department Care Team (Late st Contact Info) Description 09/28/2023 7:30 AM CDT Appointment Eldon Starr [facility] Birthplace [address] [place] [address] [place] [address] documented as of this encounter Visit Diagnoses Diagnosis Abnormal ultrasound- Primary Abnormal findings on screening Encounter for procreative genetic counseling and testing documented in this encounter Additional Health Concerns Assessment Noted Time PHQ-9 Depression Total Score: 0 08/19/19 12:54 PM CDT documented as of this encounter Care Teams Cellophane Bag Machine Operator Relationship Specialty Start Date End Date No Ref-Primary, Physician PCP - General 05/08/23 documented as of this encounter
--- OUTSIDE RECORDS SUMMARY | 2023-09-04 12:33 | XMS_ITS | Encounter Summary ---
Author Organization [place] Address [address] [facility] [place] [address] Care Team Providers Care Vending Route Servicer Name Role Phone No Ref-Primary, Physician Primary Care Provider Reason for Referral * Diagnostic Imaging Ultrasound (Routine) - Pending Review Specialty Diagnoses / Procedures Referred By Contac t Referred To Contact Radiology. Diagnoses related condition, antepartum Procedures [facility] US Comprehensive Single F/U Jair Sanchez MD [address] [facility] [address] [place] [address] Referral ID Status Reason Start Date Expiration Date V isits Requested Visits Authorized [id number] Pending Review 08/03/2023 08/02/2024 1 1 Encounter Details Date Type Department Care Team (Late st Contact Info) Description 08/03/2023 Orders Only [facility] [place] [address] [place] [address] Shaunna Nolasco RN related condition, antepartum (Primary [...] Info) Description 09/28/2023 7:30 AM CDT Appointment Dnaita Starr [facility] Birthplace [address] [place] [address] [place] [address] documented as of this encounter Results * [facility] Comprehensive Single F/U (08/31/2023 2:52 PM CDT) Anatomical Region Laterality Modality Ultrasound 08/31/2023 2:23 PM CDT Impressions 09/01/2023 5:38 PM CDT IMPRESSION ----- 1. Estrada at 35w 3d gestational age. 2. Complex [...] Pat. Name: RA NARAYAN ? Study Date: ??08/31/2023 2:23pm Pat. NO: ??[id number] ?Referring ??: FRANCIA GILMAN Site: ? Thermostat Machine Tender: Kassie Jackson RDMS : ??2000 ?Age: ?? [...] ?oz Head / Face / Neck Biometry: Top Dyeing Machine Tender ?4.8 ? mm CM ? 6.2 ? mm ANATOMY ----- The following structures appear abnormal: Heart / Thorax ?4-chamber view: coarctation of the aorta. LVOT view. 8-jeuzlk-htpoxny view. The following structures appear normal: Head [...] ongoing recommendations. Continue weekly surveillance (scheduled with Chrisney). She is scheduled for induction on 09/27. If you have questions regarding today's evaluation or if we can be of further service, please contact the Maternal[facility] Center. anomalies may be present but not detected Procedure Note Hetal Parra MD - 09/01/2023 Comp Follow Up ----- Pat. Name: GRZEGORZ FERREIRAJAS AR Study Date: 08/31/2023 2:23pm Pat. NO: [id number] Referring MD: FRANCIA GILMAN Site: Thermostat Machine Tender: Kassie Jackson RDMS : 2000 Age: 23 [...] 12oz Head / Face / Neck Biometry: Top Dyeing Machine Tender 4.8mm CM 6.2mm ANATOMY ----- The following structures appear abnormal: Heart / Thorax 4-chamber view: coarctation of theaorta. LVOT view. 1-oedfel-qnqlwqq view. The following structures appear normal: Head [...] andongoing recommendations. Continue weekly surveillance (scheduled with Chrisney). She isscheduled for induction on 09/27. If you have questions regarding today's evaluation or if we can be offurther service, please contact the [facility]aternal[facility] Medicine Center. anomalies may be present but not detected IMPRESSION ----- 1. Estrada at 35w 3d gestational age. 2. Complex [...] The BPP was 10/21. Jair Sanchez MD [facility] ORDERABL ES documented in this encounter Visit Diagnoses Diagnosis related condition, antepartum- Primary related condition, antepartum documented in this encounter Care Teams Vending Route Servicer Relationship Specialty Start Date End Date No Ref-Primary, Physician PCP - General 05/08/23 documented as of this encounter
--- OUTSIDE RECORDS SUMMARY | 2023-09-04 12:33 | XMS_ITS | Encounter Summary ---
Author Organization [place] Address [address] [place] [address]. [place] [address] Care Team Providers Care Senior Accountant Name Role Phone No Ref-Primary, Physician Primary Care Provider Encounter Details Date Type Department Care Team (Late st Contact Info) Description 08/17/2023 MyC Medical Advice [facility] [address] [place] [address] Clinic [address] [place] [address] Soumya Rodriguez LPN Social History [...] Info) Description 09/28/2023 7:30 AM CDT Appointment [facility] [address] [place] [address] documented as of this encounter Visit Diagnoses Not on filedocumented in this encounter Care Teams Senior Accountant Relationship Specialty Start Date End Date No Ref-Primary, Physician PCP - General 05/08/23 documented as of this encounter
--- OUTSIDE RECORDS SUMMARY | 2023-09-04 12:33 | XMS_ITS | Encounter Summary ---
Author Organization [place] Address [address] [facility] [place] [address] Care Team Providers Care Ski Lift Operator Name Role Phone No Ref-Primary, Physician Primary Care Provider Reason for Referral * Consultation (Routine: Next available opening) - Pending Review Specialty Diagnoses / Procedures Referred By Contac t Referred To Contact Diagnoses Supervision of high risk in third trimester complicated by congenital heart disease, single or unspecified fetus Sue Sahni CNM [address] [address] Referral ID Status Reason Start Date Expiration Date V isits Requested Visits Authorized [id number] Pending Review 08/19/2023 08/18/2024 1 1 Question Answer OB Visit? Yes Comments Ob visit Reason for Visit * Reason Comments Care Ob visit 33w5d; feta l CHD; coarctation of aorta * Consultation (Routine: Next available opening) - Pending Review Specialty Diagnoses / Procedures Referred By Contac t Referred To Contact Diagnoses related condition, antepartum Jair Sanchez MD [address] [facility] [address] [place] [address] Referral ID Status Reason Start Date Expiration Date V isits Requested Visits Authorized [id number] Pending Review 08/04/2023 08/03/2024 2 2 Encounter Details Date Type Department Care Team (Late st Contact Info) Description 08/19/2023 9:30 AM CDT Office Visit [facility] [place] [address] [place] [address] Sue Sahni CNM [address] [place] [address] Supervision of high risk in third trimester [...] Transfer of care: - Oriented patient to [facility] practice. Reviewed that [facility] is a multidisciplinary institution and her care will be collaborative in fashion with [facility] doctors, CNM, residents, fellows, and S clinic [...] - Weekly BPPs to be shared between [facility] and local OB clinic Delivery planning: - [...] given and discussed. Plan weekly BPP in [place]. Pt will return to [facility] on 08/30 for RL2/BPP/Ob visit/GC. Pt discharged stableand ambulatory. Shaunna Nolasco RN documented in this encounter Plan of Treatment Upcoming Encounters Date Type Department Care Team (Late st Contact Info) Description 09/28/2023 7:30 AM CDT Appointment [facility] Birthplace [address] [place] [address] Scheduled Referrals Name Type Priority Associated Diagnoses Orde r Schedule [facility] Office Visit Referral Routine: Next available [...] documented as of this encounter Care Teams Ski Lift Operator Relationship Specialty Start Date End Date No Ref-Primary, Physician PCP - General 05/08/23 documented as of this encounter
--- OUTSIDE RECORDS SUMMARY | 2023-09-04 12:33 | XMS_ITS | Encounter Summary ---
Author Organization [place] Address [address] [facility] [place] [place] [address] Care Team Providers Care Dough Brake Machine Operator Name Role Phone No Ref-Primary, Physician Primary Care Provider Reason for Visit * Reason Comments Consult NICU consult: CHD * Consultation (Routine: Next available opening) - Pending Review Specialty Diagnoses / Procedures Referred By Contac t Referred To Contact Diagnoses related condition, antepartum Jair Sanchez MD [address] [address] Referral ID Status Reason Start Date Expiration Date V isits Requested Visits Authorized [id number] Pending Review 08/04/2023 08/03/2024 2 2 Encounter Details Date Type Department Care Team (Late st Contact Info) Description 08/19/2023 10:00 AM CDT Office Visit [facility] [place] [address] [place] [address] Sue Sahni CNM [address] [facility] [address] [place] [address] related condition, antepartum Social History [...] as of this encounter Progress Notes * Lakesha Kapadia MD - 08/19/2023 10:00 AM CDT NICU Consult I had the pleasure of meeting with Ms. Rosemary Osborne and her partner, Aries, in the [facility] clinic at the [facility] for consultation at the request of Dr. Guzman. Ms. Óscar Osborne is currently 33 weeks with a male fetus with the suspected diagnosis of coarctation of the aorta. They have selected the intended name of Aries for their infant. We initially reviewed the NICU team that will be present at their delivery as well as the initial interventions that could be needed in the delivery room. She is very much hoping for time to meet herinfant after which I assured her would be possible as long as her baby's status allowed. We then discussed the admit process to the NICU. A cardiac ECHO and pediatric cardiology consultation will be obtained shortly after delivery and assessment of the need for PGE will be made. We discussed that if the cardiac defect is confirmed, then other organ screening would occur prior to surgery as well as genetic consultation. We reviewed the transfer process to the CVICU and surgical planning pending the post marianela ECHO results. We also reviewed the layout of the NICU, the makeup of the care team, encouraged family presence on rounds, and reviewed the visiting guidelines. We also reviewed the layers of support in the NICU including maternal child health social work, , OT, and spiritual health. All questions were answered at the completion of the visit. We look forward to caring for the infant of Ms. Rosemary Osborne in the NICU at [facility]. Please reach out if there are questions prior to delivery. Lakesha Kapadia MD Neonatology Total time of visit: 30 minutes with 100% of time in counseling. documented in this encounter Nursing Notes * Shaunna Nolasco RN - 08/19/2023 10:00 AM CDT NICU consult with Dr. Osterholm due to c/b CHD. Shaunna Nolasco RN documented in this encounter Plan of Treatment Upcoming Encounters Date Type Department Care Team (Late st Contact Info) Description 09/28/2023 7:30 AM CDT Appointment [facility] Birthplace [address] [place], [place] [address] [address] documented as of this encounter Visit Diagnoses Diagnosis related condition, antepartum documented in this encounter Additional Health Concerns Assessment Noted Time PHQ-9 Depression Total Score: 0 08/19/19 24 12:54 PM CDT documented as of this encounter Care Teams Dough Brake Machine Operator Relationship Specialty Start Date End Date No Ref-Primary, Physician PCP - General 05/08/23 documented as of this encounter
--- OUTSIDE RECORDS SUMMARY | 2023-09-04 12:33 | XMS_ITS | Encounter Summary ---
Author Organization [place] Address [address] [facility] [place] [address] Care Team Providers Care Captain Airline Pilot Name Role Phone No Ref-Primary, Physician Primary Care Provider Reason for Referral * Consultation (Routine: Next available opening) - Pending Review Specialty Diagnoses / Procedures Referred By Adonis t Referred To Contact Diagnoses related condition, antepartum Jair Sanchez MD [address] [address] Referral ID Status Reason Start Date Expiration Date V isits Requested Visits Authorized [id number] Pending Review 08/04/2023 08/03/2024 2 2 Question Answer OB Visit? Yes Is this a first time OB patient? Yes NICU Consult Yes Comments OBV and NICU consult 08/18 * Diagnostic Imaging Ultrasound (Routine) - Pending Review Specialty Diagnoses / Procedures Referred By Contac t Referred To Contact Radiology. Diagnoses related condition, antepartum Procedures M BPP Single Jair Sanchez MD [address] [place] [address] Referral ID Status Reason Start Date Expiration Date V isits Requested Visits Authorized [id number] Pending Review 08/04/2023 08/03/2024 1 1 Encounter Details Date Type Department Care Team (Late st Contact Info) Description 08/04/2023 Orders Only [facility] [place] [address] [place] [address] Shaunna Nolasco RN related condition, antepartum (Primary [...] Department Care Team (Late Contact Info) Description 09/28/2023 7:30 AM CDT Appointment [facility] Birthplace [address] [place] [phone] Scheduled Referrals Name Type Priority Associated Diagnoses Orde r Schedule [facility] Office Visit Referral Routine: Next available opening related condition, antepartum Weekly for 2 Occurrences starting 08/04/2023 until 08/03/2024 documented as of this encounter Results * [facility] BPP Single (08/19/2023 12:31 PM CDT) Anatomical Region Laterality Modality Ultrasound 08/19/2023 12:1 1 PM CDT Impressions 08/19/2023 4:47 PM CDT IMPRESSION ----- 1) Estrada intrauterine at 33w 5d gestational age. 2) The BPP is reassuring. 3) The amniotic fluid volume appeared normal. Narrative 08/19/2023 4:47 PM CDT ?BPP ----- Pat. Name: RA NARAYAN ? Study Date: ??08/19/2023 12:11pm Pat. NO: ??[id number] ?Referring ??MD: GUDELIA BARILLAS Site: ??[facility] ? Charge Entry Specialist: Molly Bernal RDMS : ??2000 ?Age: ?? [...] NARAYAN Study Date: 08/19/2023 12:11pm Pat. NO: [id number] Referring MD: GUDELIA BARILLAS Site: [facility] Charge Entry Specialist: Molly Bernal RDMS : 2000 Age: 22 [...] fluid volume appeared normal. Jair Sanchez MD [facility] ORDERABL ES documented in this encounter Visit Diagnoses Diagnosis related condition, antepartum- Primary related condition, antepartum documented in this encounter Care Teams Captain Airline Pilot Relationship Specialty Start Date End Date No Ref-Primary, Physician PCP - General 05/08/23 documented as of this encounter
--- OUTSIDE RECORDS SUMMARY | 2023-09-04 12:33 | XMS_ITS | Encounter Summary ---
Author Organization [place] Address [address] [facility] [place] [address] Care Team Providers Care Cook Cold Meat Name Role Phone No Ref-Primary, Physician Primary Care Provider Reason for Referral * Diagnostic Imaging Ultrasound (Routine) - Pending Review Specialty Diagnoses / Procedures Referred By Contac t Referred To Contact Radiology. Diagnoses related condition, antepartum Procedures [facility] US Comprehensive Single F/U Jair Sanchez MD [address] [place] [address] Referral ID Status Reason Start Date Expiration Date V isits Requested Visits Authorized [id number] Pending Review 08/03/2023 08/02/2024 1 1 Reason for Visit * Diagnostic Imaging Ultrasound (Routine) - Pending Review Specialty Diagnoses / Procedures Referred By Contac t Referred To Contact Radiology. Diagnoses related condition, antepartum Procedures [facility] US Comprehensive Single F/U Jair Sanchez MD [address] [place] [address] Referral ID Status Reason Start Date Expiration Date V isits Requested Visits Authorized [id number] Pending Review 08/03/2023 08/02/2024 1 1 Encounter Details Date Type Department Care Team (Latest Contact Info) Description 08/31/2023 2:13 PM CDT - 08/31/2023 11:59 PM CDT Hospital Encounter [facility] [place] [address] [place] [phone] Hetal Parra MD [address] [place], [place] [address] related condition, antepartum Discharge Disposition: Home or [...] chew tab by mouth 2 times daily omeprazole (PRILOSEC) [address] capsule Take 10 mg by mouth daily 08/28/2023 ondansetron (ZOFRAN) 4 MG tablet Take 4 mg by mouth every 6 hours as needed for nausea 08/28/2023 Vit-Fe Fumarate-FA ( VITAMIN PO) Take 1 tablet by mouth daily documented as of this encounter Plan of Treatment Upcoming Encounters Date Type Department Care Team (Late st Contact Info) Description 09/28/2023 7:30 AM CDT Appointment [facility] [address] [place] [phone] documented as of this encounter Procedures Procedure Name Priority Date/Time Associated Diagnosis Comments [facility] COMPREHENSIVE SINGLE F/U Routine 08/31/2023 2:52 PM CDT related condition, antepartum documented in this encounter Results * [facility] Comprehensive Single F/U (08/31/2023 2:52 [...] volume appeared normal. 6. The BPP was 8. Narrative 09/01/2023 5:38 PM CDT ?Comp Follow Up ----- Pat. Name: RA NARAYAN ? Study Date: ??08/31/2023 2:23pm Pat. NO: ??[id number] ?Referring ??: FRANCIA GILMAN Site: ? Duck Farmer: Kassie Jackson RDMS : ??2000 ?Age: ?? [...] BPD ? 89.0 ?mm ? 36w 0d ?Hadlock OFD ? 110.8 ?mm ? 33w 3d ? [...] ?oz Head / Face / Neck Biometry: Industrial Health Engineer ?4.8 ? mm CM ? 6.2 ? mm ANATOMY ----- The following structures appear abnormal: Heart / Thorax ?4-chamber view: coarctation of the aorta. LVOT view. 0-bkggiv-xohgnaf view. The following structures appear normal: Head [...] ongoing recommendations. Continue weekly surveillance (scheduled with [place]). She is scheduled for induction on 09/27. If you have questions regarding today's evaluation or if we can be of further service, please contact the [facility]. anomalies may be present but not detected Procedure Note Hetal Parra MD - 09/01/2023 Comp Follow Up ----- Pat. Name: RA NARAYAN Study Date: 08/31/2023 2:23pm Pat. NO: [id number] Referring MD: FRANCIA GILMAN Site: [place] Farmer: Kassie Jackson RDMS : 2000 Age: 23 [...] 12oz Head / Face / Neck Biometry: Industrial Health Engineer 4.8mm CM 6.2mm ANATOMY ----- The following structures appear abnormal: Heart / Thorax 4-chamber view: coarctation of theaorta. LVOT view. 7-hszpdl-sjtmmez view. The following structures appear normal: Head [...] with our office. Please see documentation in [facility] for full details from today's visit andongoing [...] volume appeared normal. 6. The BPP was 8/8. Jair Sanchez MD [facility] US ORDERABL ES documented in this encounter Visit Diagnoses Diagnosis related condition, antepartum documented in this encounter Additional Health Concerns Assessment Noted Time PHQ-9 Depression Total Score: 0 08/19/19 24 12:54 PM CDT documented as of this encounter Care Teams Cook Cold Meat Relationship Specialty Start Date End Date No Ref-Primary, Physician PCP - General 05/08/23 documented as of this encounter
--- OUTSIDE RECORDS SUMMARY | 2023-09-04 12:33 | XMS_ITS | Encounter Summary ---
Author Organization [place] Address [address] [facility] [place] [address] Care Team Providers Care Charter Pilot Name Role Phone No Ref-Primary, Physician Primary Care Provider Reason for Referral * Diagnostic Imaging Ultrasound (Routine) - Pending Review Specialty Diagnoses / Procedures Referred By Contac t Referred To Contact Radiology. Diagnoses Congenital heart defect Procedures [facility] Comprehensive Single F/U Swati Hurst MD [address] [place], [place] [address] Referral ID Status Reason Start Date Expiration Date V isits Requested Visits Authorized [id number] Pending Review 06/29/2023 06/28/2024 1 1 Reason for Visit * Diagnostic Imaging Ultrasound (Routine) - Pending Review Specialty Diagnoses / Procedures Referred By Contac t Referred To Contact Radiology. Diagnoses Congenital heart defect Procedures [facility] Comprehensive Single F/U Swati Hurst MD [address] [place], [place] [address] [address] [address] Referral ID Status Reason Start Date Expiration Date V isits Requested Visits Authorized [id number] Pending Review 06/29/2023 06/28/2024 1 1 Encounter Details Date Type Department Care Team (Latest Contact Info) Description 07/31/2023 2:08 PM CDT - 07/31/2023 11:59 PM CDT Hospital Encounter [facility] [place] [address] [facility] [address] [place] [address] Jair Sanchez MD [address] [place] [address] Congenital heart defect Discharge Disposition: Home or [...] Info) Description 09/28/2023 7:30 AM CDT Appointment [facility] [address] [place] [phone] documented as of this encounter Procedures Procedure Name Priority Date/Time Associated Diagnosis Comments [facility] COMPREHENSIVE SINGLE F/U Routine 07/31/2023 2:45 PM CDT Congenital heart defect documented in this encounter Results * [facility] Comprehensive Single F/U (07/31/2023 2:45 PM CDT) [...] ? Study Date: ??07/31/2023 2:19pm Pat. NO: ??[id number] ?Referring ??MD: FRANCIA GILMAN Site: ??[place] ? Spreader Operator Automatic: Justyna Calixto RDMS : ??2000 ?Age: ?? [...] BPD ?80.2 ?mm ? 32w 1d ?Mecca OFShaggy ?98.4 ?mm ? 29w 1d ?Nicolaides HC ?284.4 ?mm ?31w 2d ?Hadlock Cerebellum tr ?38.5 ? mm ?32w 5d ?Nicolaides AC ?271.1 ?mm ?31w 1d ?53% ?Hadlock Femur ?57.2 ? mm ?30w 0d ?Hadlock Weight Calculation: EFW ? 1,661 ?g ? 35% ?Hadlock EFW (lb,oz) ? 3 lb 11 ? oz EFW by ?Hadlock (SRU-AS-XJ-FL) Head / Face / Neck Biometry: Yarding Engineer ? 4.0 ? mm CM ?5.2 ? mm ANATOMY ----- The following structures appear abnormal: Heart / Thorax ?4-chamber view: See Echo report by [facility] from 05/20/2023. LVOT view. 3-vessel view. 6-wyfwsr-zaiahmg view. The following structures appear normal: Head [...] plan to reassess growth at [facility] in 4 weeks. Return to primary provider [...] RA Study Date: 07/31/2023 2:19pm Pat. NO: [id number] Referring MD: FRANCIA GILMAN Site: [facility] Spreader Operator Automatic: Justyna Calixto RDMS : 2000 Age: 22 [...] (lb,oz) 3 lb 11 oz EFW by Mecca (JYA-FA-SG-FL) Head / Face / Neck Biometry: Yarding Engineer 4.0 mm CM 5.2 mm ANATOMY ----- The following structures appear abnormal: Heart / Thorax 4-chamber view: See Echo reportby [facility] from 05/20/2023. LVOT view. 3-vessel view.3-wpgptg-mzgtsot view. The following structures appear normal: Head [...] We will plan to reassess growth at [facility] in 4weeks. Return to primary provider [...] volume appeared normal. Swati Hurst MD [facility] US ORDERABLE S documented in this encounter Visit Diagnoses Diagnosis Congenital heart defect Unspecified congenital anomaly of heart documented in this encounter Care Teams Charter Pilot Relationship Specialty Start Date End Date No Ref-Primary, Physician PCP - General 05/08/23 documented as of this encounter
--- OUTSIDE RECORDS SUMMARY | 2023-09-04 12:33 | XMS_ITS | Encounter Summary ---
Author Organization [place] Address [address] [place] [address]. [place] [address] Care Team Providers Care Quality Control Chemist Name Role Phone No Ref-Primary, Physician Primary Care Provider Reason for Referral * (Routine) - Closed Specialty Diagnoses / Procedures Referred By Contac t Referred To Contact Cardiology Diagnoses Anomaly of heart of fetus affecting , antepartum, single or unspecified fetus Procedures Echo (TTE) Complete Amor Leonard MD [address] [place] [address] [facility] [address] [place] [phone] Referral ID Status Reason Start Date Expiration Date Visits Re quested Visits Authorized [id number] Closed 08/19/2023 08/18/2024 1 1 Encounter Details Date Type Department Care Team (Late st Contact Info) Description 08/19/2023 Orders Only [facility] [address] [place] [address] Clinic 12th [place] [address] Amor Leonard MD [address] [place] [address] Anomaly of heart of fetus affecting [...] Info) Description 09/28/2023 7:[address] [facility] [address] [place] [phone] documented as of this encounter Results * ECHO COMPLETE (08/19/2023 11:23 AM CDT) Anatomical Region Laterality Modality Ultrasound 08/19/2023 10:5 5 AM CDT Narrative 08/20/2023 8:33 AM CDT [id number]^LEONARD^AMOR ? Study ID: [id number] ?[facility] ?[facility] ?[address] [place] [address] ? Echocardiogram Name: RA NARAYAN Study Date: 08/19/2023 10:55 AM ?Patient Location: [facility] Gender: Female ? Patient Class: Outpatient : 2000 ?Age: 22 yrs Ordering Provider: AMOR LEONARD Referring Provider: FRANCIA GILMAN Performed By: Fabiola Sahni Physician: Yonatan Black MD Reason For Study: Anomaly of heart of fetus affecting , antepartum, singl Data: Number of fetuses: This is a law gestation. Due date: 10/02/2023. Gestational age: 33w5d. Delivery at: [facility]. Specific Indication: echocardiogram performed for suspected coarctation [...] to the patient. Delivery is recommended at [facility]. Cardiology consultation and echocardiogram is recommended [...] to the left atrium. There is laminar joxjc-jd-sahm shunting across the foramen ovale. Atrioventricular valves: [...] or coronary artery anomalies. Reading Physician: ?Yonatan lBack MD 08/20/2023 08:33 AM Procedure Note Yonatan Black MD - 08/20/2023 [id number]^HORACIO^AMOR Study ID:[id number] [facility] [address] [address] Echocardiogram Name: RA NARAYAN Study Date: 08/19/2023 10:55 AM Patient Location:[facility] Gender: Female Patient Class:Outpatient : 2000 Age: 22 yrs Ordering Provider: AMOR LEONARD Referring Provider: FRANCIA GILMAN Performed By: Fabiola Sahni Physician: Yonatan Black MD Reason For Study: Anomaly of heart of fetus affecting ,antepartum, singl Data: Number of fetuses: This is a law gestation. Duedate: 10/02/2023. Gestational age: 33w5d. Delivery at: [facility]. Specific Indication: echocardiogram performed for suspected coarctation [...] to the patient. Delivery is recommended at [facility]. Cardiology consultation and echocardiogram is recommended [...] in to the left atrium. There is ndcpnntdpedn-oh-wjag shunting across the foramen ovale. Atrioventricular valves: [...] as of this encounter Care Teams Quality Control Chemist Relationship Specialty Start Date End Date No Ref-Primary, Physician PCP - General 05/08/23 documented as of this encounter
--- OUTSIDE RECORDS SUMMARY | 2023-09-04 12:33 | XMS_ITS | Encounter Summary ---
Author Organization [place] Address [address] [place] [address] Care Team Providers Care Pastry Cook Name Role Phone No Ref-Primary, Physician Primary Care Provider Reason for Referral * (Routine) - Closed Specialty Diagnoses / Procedures Referred By Sadeac t Referred To Contact Cardiology Diagnoses Anomaly of heart of fetus affecting , antepartum, single or unspecified fetus Procedures Echo (TTE) Complete Amor Leonard MD [address] [place] [address] [facility] [address] [place] [phone] Referral ID Status Reason Start Date Expiration Date Visits Re quested Visits Authorized [id number] Closed 08/19/2023 08/18/2024 1 1 Reason for Visit * (Routine) - Closed Specialty Diagnoses / Procedures Referred By Contac t Referred To Contact Cardiology Diagnoses Anomaly of heart of fetus affecting , antepartum, single or unspecified fetus Procedures Echo (TTE) Amor Anderson MD [address] [place] [address] [facility] [address] [place] [phone] Referral ID Status Reason Start Date Expiration Date Visits Re quested Visits Authorized [id number] Closed 08/19/2023 08/18/2024 1 1 Encounter Details Date Type Department Care Team (Latest Contact Info) Description 08/19/2023 9:25 AM CDT - 08/19/2023 11:44 AM CDT Hospital Encounter [facility] [address] [place] [phone] Leyda Guzman MD [address] [facility] [address] [place] [address] Urmfmusfet Anomaly of heart of fetus affecting [...] Description 09/28/2023 7:30 AM CDT Appointment [facility] [address] [place] [phone] documented as of this encounter Procedures Procedure Name Priority Date/Time Associated Diagnosis Comments ECHO COMPLETE Routine 08/19/2023 1 1:23 AM CDT Anomaly of heart of fetus affecting , antepartum, single or unspecified fetus documented in this encounter Results * ECHO COMPLETE (08/19/2023 11:23 AM CDT) Anatomical Region Laterality Modality Ultrasound 08/19/2023 10:5 5 AM CDT Narrative 08/20/2023 8:33 AM CDT [id number]^LEONARD^KAVISHA ? Study ID: [id number] ?[facility] ?[facility] ?[address] ?[place] [address] ? Echocardiogram Name: RA NARAYAN Study Date: 08/19/2023 10:55 AM ?Patient Location: [facility] Gender: Female ? Patient Class: Outpatient : 2000 ?Age: 22 yrs Ordering Provider: AMOR LEONARD Referring Provider: FRANCIA GILMAN Performed By: aFbiola Sahni Physician: Yonatan Black MD Reason For Study: Anomaly of heart of fetus affecting , antepartum, singl Data: Number of fetuses: This is a law gestation. Due date: 10/02/2023. Gestational age: 33w5d. Delivery at: [place]. Specific Indication: echocardiogram performed for suspected coarctation [...] to the patient. Delivery is recommended at [facility]. Cardiology consultation and echocardiogram is recommended [...] to the left atrium. There is laminar eeqnp-ux-vuaf shunting across the foramen ovale. Atrioventricular valves: [...] Procedure Note Yonatan Black MD - 08/20/2023 [id number]^HORACIO^AMOR Study ID:[id number] [facility] [place] [address] Echocardiogram Name: GRZEGORZ AN, RA L Study Date: 08/19/2023 10:55 AM Patient Location:[facility] Gender: Female Patient Class:Outpatient : 2000 Age: 22 yrs Ordering Provider: AMOR LEONARD Referring Provider: FRANCIA GILMAN Performed By: Fabiola Sahni Physician: Yonatan Black MD Reason For Study: Anomaly of heart of fetus affecting ,antepartum, singl Data: Number of fetuses: This is a law gestation. Duedate: 10/02/2023. Gestational age: 33w5d. Delivery at: [place]. Specific Indication: echocardiogram performed for suspected coarctation [...] to the patient. Delivery is recommended at [facility]. Cardiology consultation and echocardiogram is recommended [...] in to the left atrium. There is euyuwsxjjqgh-ud-yhej shunting across the foramen ovale. Atrioventricular valves: [...] documented as of this encounter Care Teams Pastry Cook Relationship Specialty Start Date End Date No Ref-Primary, Physician PCP - General 05/08/23 documented as of this encounter
--- OUTSIDE RECORDS SUMMARY | 2023-09-04 12:33 | XMS_ITS | Encounter Summary ---
Author Organization [place] Address [address] [facility] [place] [address] Care Team Providers Care Wellness Nurse Name Role Phone No Ref-Primary, Physician Primary Care Provider Reason for Referral * Consultation (Routine: Next available opening) - Pending Review Specialty Diagnoses / Procedures Referred By Contmaile t Referred To Contact Diagnoses Abnormal ultrasound Swati Hurst MD [address] [facility] [address] [place] [address] Referral ID Status Reason Start Date Expiration Date V isits Requested Visits Authorized [id number] Pending Review 08/04/2023 08/03/2024 1 1 Encounter Details Date Type Department Care Team (Late st Contact Info) Description 08/04/2023 Orders Only [facility] [place] [address] [place] [phone] Louise Haley GC [address] [place], [place] [phone] Abnormal ultrasound (Primary Dx) Social History Tobacco [...] genetic counseling to be added at upcoming [facility] appointment to review recommendation with patient. Louise Haley MS, [facility] Licensed Genetic Counselor [facility] [email or web address] [email or web address] documented in this encounter Plan of Treatment Upcoming Encounters Date Type Department Care Team (Late st Contact Info) Description 09/28/2023 7:30 AM CDT Appointment [facility] [address] [place] [phone] Scheduled Referrals Name Type Priority Associated Diagnoses Orde r Schedule [facility] Genetic Counseling Referral Routine: Next available opening Abnormal ultrasound Expected: 08/04/2023 (Approximate), Expires: 08/03/2024 documented as of this encounter Visit Diagnoses Diagnosis Abnormal ultrasound- Primary Abnormal findings on screening documented in this encounter Care Teams Wellness Nurse Relationship Specialty Start Date End Date No Ref-Primary, Physician PCP - General 05/08/23 documented as of this encounter
--- OUTSIDE RECORDS SUMMARY | 2023-09-04 12:33 | XMS_ITS | Encounter Summary ---
Author Organization [place] Address [address] [facility] [place] [address] Care Team Providers Care Lead Front Desk Agent Name Role Phone No Ref-Primary, Physician [...] Info) Description 09/28/2023 7:30 AM CDT Appointment [facility] [address] [place] [address] documented as of this encounter Visit Diagnoses Not on filedocumented in this encounter Care Teams Lead Front Desk Agent Relationship Specialty Start Date End Date No Ref-Primary, Physician PCP - General 05/08/23 documented as of this encounter
--- OUTSIDE RECORDS SUMMARY | 2023-09-04 12:33 | XMS_ITS | Encounter Summary ---
Author Organization [place] Address [address] [facility] [place] [address] Care Team Providers Care Materials Handling Equipment Operator Name Role Phone No Ref-Primary, Physician Primary Care Provider Reason for Visit * Reason Comments Ultrasound BPP: CHD Encounter Details Date Type Department Care Team (Late st Contact Info) Description 08/19/2023 12:15 PM CDT Office Visit [facility] [place] [address] [place], [place] [phone] Leyda Guzman MD [address] [place] [address] complicated by congenital heart disease, [...] 09/28/2023 7:30 AM CDT Appointment [facility] [address] [facility] [place] [phone] documented as of this encounter Visit Diagnoses Diagnosis complicated by congenital heart disease, single or unspecified fetus- Primary documented in this encounter Additional Health Concerns Assessment Noted Time PHQ-9 Depression Total Score: 0 08/19/19 12:54 PM CDT documented as of this encounter Care Teams Materials Handling Equipment Operator Relationship Specialty Start Date End Date No Ref-Primary, Physician PCP - General 05/08/23 documented as of this encounter
--- OUTSIDE RECORDS SUMMARY | 2023-09-04 12:33 | XMS_ITS | Encounter Summary ---
Author Organization [place] Address [address] [facility] [place] [address] Care Team Providers Care Cap And Stud Machine Operator Name Role Phone No Ref-Primary, [...] Info) Description 09/28/2023 7:30 AM CDT Appointment [facility] [address] [place] [address] documented as of this encounter Visit Diagnoses Not on filedocumented in this encounter Care Teams Cap And Stud Machine Operator Relationship Specialty Start Date End Date No Ref-Primary, Physician PCP - General 05/08/23 documented as of this encounter
--- OUTSIDE RECORDS SUMMARY | 2023-09-04 12:33 | XMS_ITS | Encounter Summary ---
Author Organization [place] Address [address] [place] [address]. [place] [address] Care Team Providers Care Information Receptionist Name Role Phone No Ref-Primary, Physician Primary Care Provider Encounter Details Date Type Department Care Team (Late st Contact Info) Description 09/02/[address] [facility] [address] [place] [address] Clinic [address] [place] [address] Soumya Rodriguez LPN Social History [...] Info) Description 09/28/2023 7:30 AM CDT Appointment [facility] [address] [place] [address] documented as of this encounter Visit Diagnoses Not on filedocumented in this encounter Additional Health Concerns Assessment Noted Time PHQ-9 Depression Total Score: 0 08/19/19 24 12:54 PM CDT documented as of this encounter Care Teams Information Receptionist Relationship Specialty Start Date End Date No Ref-Primary, Physician PCP - General 05/08/23 documented as of this encounter
--- OUTSIDE RECORDS SUMMARY | 2023-09-04 12:33 | XMS_ITS | Encounter Summary ---
Author Organization [place] Address [facility] [place] [address] Care Team Providers Care Door Trimmer Name Role Phone No Ref-Primary, Physician Primary Care Provider Encounter Details Date Type Department Care Team (Latest Contact Info) Description 08/31/2023 Travel Social History Tobacco Use Types Packs/Day [...] Info) Description 09/28/2023 7:30 AM CDT Appointment [facility] [address] [place] [address] documented as of this encounter Visit Diagnoses Not on filedocumented in this encounter Additional Health Concerns Assessment Noted Time PHQ-9 Depression Total Score: 0 08/19/19 24 12:54 PM CDT documented as of this encounter Care Teams Door Trimmer Relationship Specialty Start Date End Date No Ref-Primary, Physician PCP - General 05/08/23 documented as of this encounter
--- OUTSIDE RECORDS SUMMARY | 2023-09-04 12:33 | XMS_ITS | Encounter Summary ---
Author Organization [place] Address [facility]ly [facility]0 [facility] [place] [address] Care Team Providers Care Caddie Name Role Phone No Ref-Primary, Physician Primary [...] AM CDT Appointment [facility] [address] [place] [phone] documented as of this encounter Visit Diagnoses Not on filedocumented in this encounter Additional Health Concerns Assessment Noted Time PHQ-9 Depression Total Score: 0 08/19/19 24 12:54 PM CDT documented as of this encounter Care Teams Caddie Relationship Specialty Start Date End Date No Ref-Primary, Physician PCP - General 05/08/23 documented as of this encounter
--- OUTSIDE RECORDS SUMMARY | 2023-09-04 12:33 | XMS_ITS | Encounter Summary ---
Author Organization [place] Address [address] [facility] [place] [address] Care Team Providers Care Animal Nursery Worker Name Role Phone No Ref-Primary, Physician Primary Care Provider Encounter Details Date Type Department Care Team (Late st Contact Info) Description 08/19/2023 Documentation Only [facility] CASE MANAGEMENT [id number] Edda Ohara LICSW Social History Tobacco Use Types [...] ADAMARIS met with patient, her partner, and Online Content Coordinator today in the [facility] for a NICU Consult. Rosemary knows she is with a boy and they have chosen to name him Aries after his father. Online Content Coordinator discussed what is known medically at this time about Aries. Answered parents questions, and discussed what to expect over the first couple of days after Aries is born and admitted to the NICU. ADAMARIS introduced self and role and discussed how ADAMARIS supports families who have babies in the NICU. Also discussed possible options for lodging as Rosemary and Aries live in [place], [place]. ADAMARIS made plan to meet with Rosemary after baby Aries is born to complete a psychosocial assessment and provide supportive intervention. ADAMARIS provided Rosemary and Aries with contact information and encouraged them to be in touch with any questions or needs prior to the of their baby. No additional concerns, questions, or needs identified today. KALEB Holcomb, ROSALINDA Maternal and Child Health Professional Bass Fisherman M-F 08:00-16:30 on [place] Office [email or web address] After hours social work can be reached via CheckInPage After Hours [employer] 1620 to 08 Weekend on-site social work can be reached via [employer]In[employer] Weekend Onsite 08 to 1630 documented in this encounter Plan of Treatment Upcoming Encounters Date Type Department Care Team (Late st Contact Info) Description 09/28/2023 7:30 AM CDT Appointment [facility] [address] [place] [phone] documented as of this encounter Visit Diagnoses Not on filedocumented in this encounter Additional Health Concerns Assessment Noted Time PHQ-9 Depression Total Score: 0 08/19/19 12:54 PM CDT documented as of this encounter Care Teams Animal Nursery Worker Relationship Specialty Start Date End Date No Ref-Primary, Physician PCP - General 05/08/23 documented as of this encounter
--- OUTSIDE RECORDS SUMMARY | 2023-09-04 12:33 | XMS_ITS | Encounter Summary ---
Author Organization [place] Address [facility] [place] [address] Care Team Providers Care Washer Assembler Name Role Phone No Ref-Primary, Physician Primary Care Provider Reason for Visit * Reason Comments Ultrasound RL2/BPP: CHD, coarctation of aorta Encounter Details Date Type Department Care Team (Late st Contact Info) Description 08/31/2023 2:45 PM CDT Office Visit [facility] Maternal Medicine Center [place] [address] [place], [place] [address] Hetal Parra MD [address] [place] [address] complicated by congenital heart disease, [...] as of this encounter Progress Notes * Hetal Parra MD - 08/31/2023 2:45 PM CDT The patient was seen for an ultrasound in the Maternal- Medicine Center at the [facility] today. For a detailed report of the ultrasound examination, please see the ultrasound report which can be found under the imaging tab. If you have questions regarding today's evaluation or if we can be of further service, please contact the Maternal- Medicine Center. Hetal Parra MD Research Spec, FOOD CART ATTENDANT Maternal- Medicine [phone] (Pager) documented in this encounter Plan of Treatment Upcoming Encounters Date Type Department Care Team (Late st Contact Info) Description 09/28/2023 7:30 AM CDT Appointment [facility] [address] [place] [phone] documented as of this encounter Visit Diagnoses Diagnosis complicated by congenital heart disease, single or unspecified fetus- Primary documented in this encounter Additional Health Concerns Assessment Noted Time PHQ-9 Depression Total Score: 0 08/19/19 24 12:54 PM CDT documented as of this encounter Care Teams Washer Assembler Relationship Specialty Start Date End Date No Ref-Primary, Physician PCP - General 05/08/23 documented as of this encounter
--- OUTSIDE RECORDS SUMMARY | 2023-09-04 12:33 | XMS_ITS | Encounter Summary ---
Author Organization [place] Address [address] [facility] [place] [address] Care Team Providers Care Clerk To Justice Name Role Phone No Ref-Primary, Physician Primary Care Provider Reason for Visit * Reason Comments Ultrasound L2- CHD Encounter Details Date Type Department Care Team (Late st Contact Info) Description 07/31/2023 2:45 PM CDT Office Visit [facility] Maternal Medicine Center [place] [address] [facility] [address] [place] [address] Jair Sanchez MD [address] [place] [address] complicated by congenital heart disease, [...] details of today's US at the [facility] [place]. Jair Sanchez MD Maternal- Medicine documented in this encounter Nursing Notes * Soumya Brandon, DIPTI - 07/31/2023 2:45 PM CDT Patient reports good movement, denies contractions, leaking of fluid, or bleeding. EDILBERTO HARPER MD, see their note in Epic. documented in this encounter Plan of Treatment Upcoming Encounters Date Type Department Care Team (Late st Contact Info) Description 09/28/2023 7:30 AM CDT Appointment [facility] [address] [place] [phone] documented as of this encounter Visit Diagnoses Diagnosis complicated by congenital heart disease, single or unspecified fetus- Primary documented in this encounter Care Teams Clerk To Justice Relationship Specialty Start Date End Date No Ref-Primary, Physician PCP - General 05/08/23 documented as of this encounter
--- OUTSIDE RECORDS SUMMARY | 2023-09-04 12:33 | XMS_ITS | Encounter Summary ---
Author Organization [place] Address [address] [place] [address] Care Team Providers Care Motor Racer Name Role Phone No Ref-Primary, Physician Primary Care Provider Encounter Details Date Type Department Care Team ([facility] st Contact Info) Description 08/19/2023 Office Visit [facility] - Heart & Vascular Service Line [address] [place] [phone] Yonatan Black MD [facility] [address] [address] cardiac disease affecting , single or unspecified [...] pleasure of seeing Rosemary Osborne at the [facility]ch[facility] in [place] on 08/19/2023 in ongoing consultation for echocardiography [...] cardiology consultation. -- Delivery should occur at [facility]. Thank you for allowing me to participate in Ms. Wilfrido Osborne's care. Please don't hesitate to contact me or the Cardiology team at [facility] with any questions or concerns. I spent a total of 60 minutes on the date of the encounter doing chart review, patient history, documentation, counseling, and coordinating care. Yonatan Black MD Pediatric Cardiology [facility] Review of the result(s) of each unique test - echocardiogram documented in this encounter Plan of Treatment Upcoming Encounters Date Type Department Care Team (Late st Contact Info) Description 09/28/2023 7:30 AM CDT Appointment [facility] [address] [place] [phone] documented as of this encounter Visit Diagnoses Diagnosis cardiac disease affecting , single or unspecified fetus- Primary documented in this encounter Additional Health Concerns Assessment Noted Time PHQ-9 Depression Total Score: 0 08/19/19 12:54 PM CDT documented as of this encounter Care Teams Motor Racer Relationship Specialty Start Date End Date No Ref-Primary, Physician PCP - General 05/08/23 documented as of this encounter
--- OUTSIDE RECORDS SUMMARY | 2023-09-04 12:33 | XMS_ITS | Encounter Summary ---
Author Organization [place] Address [facility] [place] [address] Care Team Providers Care Cook Barbecue Name Role Phone No Ref-Primary, Physician Primary Care Provider Reason for Visit * Reason Onset Date Comments Appointment 08/03/2023 Encounter Details Date Type Department Care Team (Late st Contact Info) Description 08/03/2023 Telephone [facility] Maternal Medicine Center [place] [address] [place] [address] Shaunna Nolasco, RN Appointment Social History Tobacco [...] appointments, weekly BPP, visits, and delivery at [facility]. Offered patient to move echo from 08/10 to 08/11 to coordinate a BPP and visit with MFM coordinator at [place]. Pt will call back after checking with her spouse. Shaunna Nolasco RN documented in this encounter Plan of Treatment Upcoming Encounters Date Type Department Care Team (Late st Contact Info) Description 09/28/2023 7:30 AM CDT Appointment [facility] [address] [facility] [place] [phone] documented as of this encounter Visit Diagnoses Not on filedocumented in this encounter Care Teams Cook Barbecue Relationship Specialty Start Date End Date No Ref-Primary, Physician PCP - General 05/08/23 documented as of this encounter
--- OUTSIDE RECORDS SUMMARY | 2023-09-04 12:33 | XMS_ITS | Encounter Summary ---
Author Organization [place] Address [address] [facility] [place] [address] Care Team Providers Care Electrical Prospecting Observer Name Role Phone No Ref-Primary, Physician Primary Care Provider Reason for Visit * Reason Comments Care Ob visit 35w3d: feta l CHD, coarctation of aorta * Consultation (Routine: Next available opening) - Pending Review Specialty Diagnoses / Procedures Referred By Adonis shaffer Referred To Contact Diagnoses Supervision of high risk in third trimester complicated by congenital heart disease, single or unspecified fetus Sue Sahni CNM [address] [facility] [address] [place] [address] Referral ID Status Reason Start Date Expiration Date V isits Requested Visits Authorized [id number] Pending Review 08/19/2023 08/18/2024 1 1 Encounter Details Date Type Department Care Team (Late st Contact Info) Description 08/31/2023 3:00 PM CDT Office Visit [facility] [place] [address] [place], [place] [address] Hetal Parra MD [address] [place] [address] Sue Sahni CNM [address] [place] [address] Supervision of high risk in third trimester [...] oz) 08/31/2023 3:20 P M CDT Height - - Body Mass Index 40.17 08/19/2023 12:53 PM CDT documented in this encounter Patient Instructions * Patient Instructions* Shaunna Nolasco RN - 08/31/2023 3:00 PM CDT Images from the original note were not included. Weeks 34 to 36 of Your : Care Instructions Your belly has grown quite large. It's almost time to give ! Your baby's lungs are almost ready to breathe air. The skull bones are firm enough to protect your baby's head. But they're soft enough to move down through the canal. You might be wondering what to expect during labor. Because each is different, there's no wayto know exactly what childbirth will be like for you. Talk to your doctor or escort patients about any concerns you have. You'll probably have a test for group B streptococcus (GBS). GBS is bacteria that can live in the vagina and rectum. GBS can make your baby sick after . If you test positive, you'll get antibiotics during labor. Choose what type of pain relief you would like during labor. You can choose from a few types, including medicine and non-medicine options. You may want to use several types of pain relief. Know how medicines can help with pain during labor. Some medicines lower anxiety and help with someof the pain. Others make your lower body numb so that you will feel less pain. Tell your doctor about your pain medicine choice. Do this before you start labor or very early in your labor. You may be able to change your mind during labor. Learn about the stages of labor. The first stage includes the early (latent) and active phases of labor. Contractions start in earlylabor. During active labor, contractions get stronger, last longer, and happen more often. And the cervix opens more rapidly. The second stage starts when you're ready to push. During this stage, your baby is born. During the third stage, you'll usually have a few more contractions to push out the placenta. Follow-up care is a house part of your treatment and safety. Be sure to make and go to all appointments, and call your doctor if you are having problems. It's also a good idea to know your test resultsand keep a list of the medicines you take. Where can you learn more? Go to https://www.Shoplins.CoAxia/patiented Enter B912 in the search box to learn more about Weeks 34 to 36 of Your : Care Instructions. Current as of: September 22, 2022?Content Version: 14.0 ?? [employer]. Care instructions adapted under license by your healthcare professional. If you have questions about a medical condition or this instruction, always ask your healthcare professional. [employer] disclaims any warranty or liability for your use of this information. Group B Strep During : Care Instructions Overview Group B strep infection is caused by a type of bacteria. It's a different kind of bacteria than thekind that causes strep throat. You may have this kind of bacteria in your body. Sometimes it may cause an infection, but most of the time it doesn't make you sick or cause symptoms. But if you pass the bacteria to your baby duringthe , it can cause serious health problems for your baby. If you have this bacteria in your body, you will get antibiotics when you are in labor. Antibioticshelp prevent problems for a baby. After , doctors will watch and may test your baby. If your baby tests positive for Group B strep, your baby will get antibiotics. If you plan to breastfeed your baby, don't worry. It will be safe to breastfeed. Follow-up care is a house part of your treatment and safety. Be sure to make and go to all appointments, and call your doctor if you are having problems. It's also a good idea to know your test resultsand keep a list of the medicines you take. How can you care for yourself at home? If your doctor has prescribed antibiotics, take them as directed. Do not stop taking them just because you feel better. You need to take the full course of antibiotics. Tell your doctor if you are allergic to any antibiotic. If you go into labor, or your water breaks, go to the hospital. Your doctor will give you antibiotics to help protect your baby from infection. Tell the doctors and nurses if you have an allergy to penicillin. Tell the doctors and nurses at the hospital that you tested positive for group B strep. When should you call for help? Call your doctor now or seek immediate medical care if: ?? You have symptoms of a urinary tract infection. These may include: Pain or burning when you urinate. A frequent need to urinate without being able to pass much urine. Pain in the flank, which is just below the rib cage and above the waist on either side of the back. Blood in your urine. A fever. ?? You think you are in labor or your water has broken. ?? You have pain in your belly or pelvis. Watch closely for changes in your health, and be sure to contact your doctor if you have any problems. Where can you learn more? Go to https://www.Shoplins.net/patiented Enter M001 in the search box to learn more about Group B Strep During : Care Instructions. Current as of: August 25, 2022?Content Version: 14.0 ?? [employer]. Care instructions adapted under license by your healthcare professional. If you have questions about a medical condition or this instruction, always ask your healthcare professional. [employer] disclaims any warranty or liability for your use of this information. Labor Induction What You Need to Know What is labor induction? In most cases, it is best to go into labor naturally. When labor does not start on its own, we may use medicine or other methods to start (induce) labor. This is called induction, which: Helps the uterus contract Thins, softens and opens the cervix (opening of the uterus) When is induction used? There are two types of induction. Medical induction may be done to protect the health of the parent or baby if: There are medical concerns for you or your baby. You haven't had your baby by 41 weeks. Induction for non-medical reasons may be done at 39 weeks or later if: You live far from the hospital. You've been having contractions for many days. You've given quickly in the past. We will not perform an induction for non-medical reasons before 39 weeks. Studies show that babies born before 39 weeks may struggle with breathing, feeding, sleeping and staying warm. They are more likely to have health problems and may need to stay in the hospital longer. If we start your labor for medical reasons, the benefits will outweigh these risks. We will talk to you about your risks, benefits and alternatives (other options) before we start your labor. How is induction done? We may start your labor by doing one or more of the following: We may need to help your cervix soften and open (sometimes called ripening) to prepare it for labor. There are two ways to do this: Medicines--these may be in the form of pills that you swallow or medicines that are put into the vagina next to the cervix. Mechanical--using either a single or double balloon. These are small balloons that are attached to tubes that go up inside the cervix. The balloons are then filled with water to put pressure on the cervix and help the cervix soften and open. Depending on the type of balloon used, you may be allowedto go home after it is placed. After your cervix is ready: We may give you medicine through an IV (a small tube placed in your vein). This medicine is called Pitocin. It helps the muscles of your uterus to contract. We may make a small opening in your bag of water (the sac around your baby). This is called an amniotomy. Sometimes called breaking the water. It may help your uterus contract and your cervix open. What might happen if my labor is induced? Some of this depends on how your labor is started and how your body responds. Your labor may be more complicated. You and your baby may need more medical treatments. In general: You may not go into labor right away. If so, we may send you home with follow-up instructions. It will be important to monitor you and your baby during the induction. You may not be able to move around during labor. You will have two belts with monitors attached to your belly. These allow the nurse to watch your contractions and your baby's heart rate. Your labor may take longer than if you went into labor on your own. It might take more than one day. If you need cervical ripening, it is important to know that it may be many hours (even days) until delivery happens. Cervical ripening can be slow and require several doses before your body is ready to labor. A long labor may increase the risk of infection in mother and baby. Your labor may not progress as planned. This could lead to a . Can I plan the date of my delivery? After 39 weeks, you may ask about planning your delivery date. This is only an option if your body--and your baby--are ready. To find out, we will check your cervix and your baby's heart rate. If you are ready to be induced, we will give you a date and time to come to the hospital. If many patients are in labor that day, we may need to start your labor at another time. If you are not ready, we will not start your labor. It will be safer for your baby to come on its own. What else do I need to know? Before you have an induction, make sure you understand the reasons, risks and benefits. Ask your doctor or nurse-escort patients: Why do I need to be induced? What are the risks to my baby? How will you start my labor? How will you know if my baby is ready to be born? How will you know if my body is ready to give ? Where can I get more information? To learn more about induction, you may visit these websites: [employer]: www.mymidwife.org The [employer] Obstetricians [employer] Gynecologists: www.acog.org Childbirth Connection: www.childbirthconnection.org May Dim: www.mayRive Technology.Fitness Interactive Experience Association of Women's Health, Obstetrics, and Nursing www.chlfyk7vpw.org/zy-erf-jgir-40/ For informational purposes only. Not to replace the advice of your health care provider. Copyright ?? 2007 [facility]. All rights reserved. Clinically reviewed by the System Operations Leadership team. [employer] [id number] - REV 06/04. * Attachments The following attachments cannot be sent through Care Everywhere. * : High Blood Pressure (Thai) documented in this encounter Progress Notes * Sue Sahni CNM - 08/31/2023 3:00 PM CDT Maternal Medicine OB Follow up visit. Rosemary Osborne : 2000 CC: OB Follow-up Subjective: Rosemary Osborne is a 23 year old at 35w3d presenting for routine OB follow-up. Today, she is here with Aries, and is feeling well overall. She does endorse more swelling of her hands/wrists and feet. Some pain in her wrist, but no numbness or tingling in fingers. LE edema is often worse at the end of the day and improves with rest/elevation. She also endorses occasional headacehs for which she takes tylenol a few times per week. This often helps, but if it doesn't, she reports headaches resolve spontaneously. She denies regular, painful contractions, denies loss of fluid or vaginal bleeding. Reports movement. Going forward, she has weekly BPPs and OB visits with her doctor in [place] and she prefers to follow with them and return to [place] for her induction. OB Hx: OB History Para Term AB Living 1 0 0 0 0 0 SAB IAB Ectopic Multiple Live Births 0 0 0 0 0 # Outcome Date GA Lbr Dyllan/2nd Weight Sex Type Anes PTL Lv 1 Current Objective: BP 123/79 (BP Location: Left arm, Patient Position: Chair) Pulse 78 Resp 18 Wt 99.6 kg (219 lb 9.6 oz) LMP 12/15/2022 SpO2 99% BMI 40.17 kg/m?? Gen: alert, oriented, NAD Skin: warm, dry, intact Respiratory: breathing unlabored, no SOB Abdominal: gravid, non-tender Pelvic: deferred Extremities: trace edema of hands, +1 of feet and ankles bilaterally Psych: mood WNL, behavior WNL OB Ultrasound: Please see imaging tab under chart review for today's ultrasound results. Echo: 08/19/23 Shone's complex. Coarctation of the aorta with [...] to the patient. Delivery is recommended at [facility]. Cardiology consultation and echocardiogram is recommended immediately after delivery. Assessment/Plan: 23 year old at 35w3d here for follow up OB visit. has been complicated by: Maternal dx: - +Chlamydia 02/16/23. Neg DOE 03/17/23 dx: - Shone's complex. Coarctation of the aorta. CHD: - No further echo recommended. Will need echo with peds cards consult after . - S/p meeting with NICU and SW on 08/18 with planned admission to the NICU after . Routine PNC: - labs: Rh: + antibody: neg HepB/HIV/RPR/HepC: NR GC/CT: Chlamydia+ on 02/16. She and partner treated. DOE negative on 03/17/23 Rubella: immune GCT: pass - 88 - Pap smear: due . LSIL and HP neg on 09/12 - Immunizations: s/p TDap 07/28/23; Flu 03/17/23 - Genetic screening: low-risk NIPT - GBS pending. Surveillance: - Serial growth US next on 08/30. - Weekly BPPs to be shared between [facility] and local OB clinic. Delivery planning: - IOL scheduled for 09/27. Reviewed typical methods and timeline for IOL. - Labor analgesia: Reviewed comfort measures and pharmacologic measures for pain management. Rosemary is open to all options. - Feeding: - Contraception plans: reviewed options. Leaning toward OCPs. - : offer 2 week visit. If baby is still in the NICU, visit can occur with MFM or patientcan resume with routine OB provider. 30 minutes spent on the date of the encounter, doing chart review, history and exam, documentation and further activities as noted. Sue Sahni CNM on 08/31/2023 at 3:10 PM documented in this encounter Nursing Notes * Shaunna Nolasco RN - 08/31/2023 3:00 PM CDT Rosemary seen in clinic today for follow up growth, BPP, OB visit, and genetic counseling at 35w3d gestation for complicated by CHD (see report/notes). VSS. Pt reports normal movement, see flowsheet. Evaluated for bldg/lof/change in discharge/contractions/headache/vision changes/chest pain/SOB/edema, patient denies concerns. Pt evaluated for cardiac concerns, labor, preeclampsia, wellbeing without concerns. Patient reports she was seen in [place] last Sunday 08/27 for N/V and dizziness. She states she was given IV fluids, zofran, and an Rx for omeprazole. Ptdoing well today. Pt is scheduled for weekly BPP/OB visits in [place] on Fridays. Dr. Parra reviewed US. Sue Sahni CNM met with patient. IOL scheduled for 09/28/23 0730 39w3d. Pt notified to review new pt education in [facility], verbally reviewed highlights. Phone numbers to clinic and Birthplace given and discussed. Pt discharged stable and ambulatory. Shaunna Nolasco RN documented in this encounter Plan of Treatment Upcoming Encounters Date Type Department Care Team (Late st Contact Info) Description 09/28/2023 7:30 AM CDT Appointment [facility] [address] [place] [phone] documented as of this encounter Procedures Procedure Name Priority Date/Time Associated Diagnosis Comments GROUP B STREP PCR Routine 08/31/2023 3:4 7 PM CDT Supervision of high risk in third trimester documented in this encounter Results * Group B strep PCR (08/31/2023 [...] LABORATORY - 09/01/2023 11:54 AM CDT The Cepheid Xpert GBS LB Assay, performed on the [employer]?? Instrument Systems, is a qualitative in vitro [...] or monitor treatment for GBS infections. The Cepheid Xpert GBS LB Assay is intended for use in hospital, reference or state laboratory settings. The device is not intended for zdafm-qp-knvv use. Sue Sahni CNM LAB - MICRO GENE RAL ORDERABLES [facility] Inf. Diseases Diag. Lab [address] [facility] [place] [address] documented in this encounter Visit Diagnoses Diagnosis Supervision of high risk in third trimester- Primary Unspecified high-risk complicated by congenital heart disease, single or unspecified fetus documented in this encounter Additional Health Concerns Assessment Noted Time PHQ-9 Depression Total Score: 0 08/19/19 24 12:54 PM CDT documented as of this encounter Care Teams Electrical Prospecting Observer Relationship Specialty Start Date End Date No Ref-Primary, Physician PCP - General 05/08/23 documented as of this encounter
--- OUTSIDE RECORDS SUMMARY | 2023-09-04 12:33 | XMS_ITS | Encounter Summary ---
Author Organization [place] Address [address] [facility] [place] [address] Care Team Providers Care Peace Officer Name Role Phone No Ref-Primary, Physician Primary Care Provider Reason for Referral * Diagnostic Imaging Ultrasound (Routine) - Pending Review Specialty Diagnoses / Procedures Referred By Contac t Referred To Contact Radiology. Diagnoses related condition, antepartum Procedures [facility] Jair Patel MD [address] [address] Referral ID Status Reason Start Date Expiration Date V isits Requested Visits Authorized [id number] Pending Review 08/04/2023 08/03/2024 1 1 Reason for Visit * Diagnostic Imaging Ultrasound (Routine) - Pending Review Specialty Diagnoses / Procedures Referred By Contac t Referred To Contact Radiology. Diagnoses related condition, antepartum Procedures [facility] Jair Patel MD [address] [address] Referral ID Status Reason Start Date Expiration Date V isits Requested Visits Authorized [id number] Pending Review 08/04/2023 08/03/2024 1 1 Encounter Details Date Type Department Care Team (Latest Contact Info) Description 08/19/2023 11:45 AM CDT - 08/19/2023 11:59 PM CDT Hospital Encounter [facility] Maternal Medicine [facility] [address] [place] [address] Leyda Guzman MD [address] [place] [address] related condition, antepartum Discharge Disposition: Home or [...] Description 09/28/2023 7:[address] [facility] [address] [place] [phone] documented as of this encounter Procedures Procedure Name Priority Date/Time Associated Diagnosis Comments [facility] BPP SINGLE Routine 08/19/2023 12:31 PM CDT related condition, antepartum documented in this encounter Results * [facility] BPP Single (08/19/2023 12:31 PM CDT) Anatomical Region Laterality Modality Ultrasound 08/19/2023 12:1 1 PM CDT Impressions 08/19/2023 4:47 PM CDT IMPRESSION ----- 1) Estrada intrauterine at 33w 5d gestational age. 2) The BPP is reassuring. 3) The amniotic fluid volume appeared normal. Narrative 08/19/2023 4:47 PM CDT ?BPP ----- Pat. Name: RA NARAYAN ? Study Date: ??08/19/2023 12:11pm Pat. NO: ??[id number] ?Referring ??MD: GUDELIA BARILLAS Site: ??[facility] ? Hand Buffer: Molly Bernal RDMS : ??2000 ?Age: ?? [...] NARAYAN Study Date: 08/19/2023 12:11pm Pat. NO: [id number] Referring MD: GUDELIA BARILLAS Site: [facility] Hand Buffer: Molly Bernal RDMS : 2000 Age: 22 [...] fluid volume appeared normal. Jair Sanchez MD [facility] ORDERABL ES documented in this encounter Visit Diagnoses Diagnosis related condition, antepartum documented in this encounter Additional Health Concerns Assessment Noted Time PHQ-9 Depression Total Score: 0 08/19/19 24 12:54 PM CDT documented as of this encounter Care Teams Peace Officer Relationship Specialty Start Date End Date No Ref-Primary, Physician PCP - General 05/08/23 documented as of this encounter
--- OUTSIDE RECORDS SUMMARY | 2023-09-04 12:33 | XMS_ITS | Referral Summary ---
Author Organization [place] Address [address] [facility] [place] [address] Care Team Providers Care Cvir Tech Name Role Phone No Ref-Primary, Physician Primary Care Provider Encounters Date Type Department Care Team Description 09/02/2023 MyC Medical Advice [facility] [address] [place] [phone] Soumya Rodriguez LPN 08/31/2023 Travel 08/31/2023 3:00 PM CDT Office Visit [facility] [address] [address] Hetal Parra MD Johnson, Kate Talbot, CNM Supervision of high risk in third trimester (Primary Dx); complicated by congenital heart disease, single or unspecified fetus 08/31/2023 3:00 PM CDT Office Visit [facility] [address] [address] Hetal Parra MD Stoner, Natalie E, GC Abnormal ultrasound (Primary Dx); Encounter for procreative genetic counseling and testing 08/31/2023 2:45 PM CDT Office Visit [facility] [address] [place] [address] Hetal Parra MD complicated by congenital heart disease, single or unspecified fetus (Primary Dx) 08/31/2023 2:13 PM CDT - 08/31/2023 11:59 PM CDT Hospital Encounter [facility] [place] [address] [facility] [phone] Hetal Parra MD related condition, antepartum Discharge Disposition: Home or Self Care 08/19/2023 Office Visit [facility] - Heart & Vascular Service Line [address] [place] [phone] Yonatan Black MD cardiac disease affecting , single or unspecified fetus (Primary Dx) 08/19/2023 Documentation Only UR CASE MANAGEMENT [phone] Edda Ohara, [facility] 08/19/2023 Orders Only [facility] [address] [place] [address] [facility] [address] [place] [phone] Carlos Alberto Leonard MD Anomaly of heart of fetus affecting , antepartum, single or unspecified fetus (Primary Dx) 08/19/2023 Travel 08/19/2023 9:25 AM CDT - 08/19/2023 11:44 AM CDT Hospital Encounter [facility] [address] [place] [phone] Leyda Guzman MD Urmfmusfet Anomaly of heart of fetus affecting , antepartum, single or unspecified fetus Discharge Disposition: Home or Self Care 08/19/2023 10:00 AM CDT Office Visit [facility] [place] [address] [place] [address] Gudelia Sahni CNM related condition, antepartum 08/19/2023 12:15 PM CDT Office Visit [facility] [address] [place] [address] Leyda Guzman MD complicated by congenital heart disease, single or unspecified fetus (Primary Dx) 08/19/2023 11:45 AM CDT - 08/19/2023 11:59 PM CDT Hospital Encounter [facility] [address] [place] [phone] Leyda Guzman MD related condition, antepartum Discharge Disposition: Home or Self Care 08/19/2023 9:30 AM CDT Office Visit [facility] [address] [place] [address] Gudelia Sahni CNM Supervision of high risk in third trimester (Primary Dx); complicated by congenital heart disease, single or unspecified fetus 08/17/2023 MyC Medical Advice [facility] [address] [facility] [address] [place] [phone] Soumya Rodriguez LPN 08/04/2023 Orders Only [facility] [address] [place] [address] Louise Haley GC Abnormal ultrasound (Primary Dx) 08/04/2023 Telephone [facility] [address] [place] [address] Shaunna Nolasco RN Appointment 08/04/2023 Orders Only [facility] [address] [place] [address] Shaunna Nolasco RN related condition, antepartum (Primary Dx) 08/03/2023 Telephone [facility] [address] [place] [address] Shaunna Nolasco RN Appointment 08/03/2023 Orders Only [facility] [address] [place] [address] Shaunna Nolasco RN related condition, antepartum (Primary Dx) 07/31/2023 Travel 07/31/2023 2:45 PM CDT Office Visit [facility] [address] [facility] [address] [place] [phone] Jair Sanchez MD complicated by congenital heart disease, single or unspecified fetus (Primary Dx) 07/31/2023 2:08 PM CDT - 07/31/2023 11:59 PM CDT Hospital Encounter [facility] Medicine [facility] [address] [facility] [address] [place] [phone] Jair Sanchez MD Congenital heart defect Discharge Disposition: Home or Self Care 07/14/[address] [facility] [address] [place] [phone] Carlos Alberto Leonard MD cardiac disease affecting , single or unspecified fetus (Primary Dx) 07/14/2023 Travel 07/14/2023 7:45 AM CDT - 07/14/2023 11:59 PM CDT Hospital Encounter [facility] [address] [place] [phone] Yifan Aponte MD Anomaly of heart of fetus affecting , antepartum, single or unspecified fetus Discharge Disposition: Home or Self Care 07/07/2023 Orders Only [facility] [address] [place] [phone] Yifan Aponte MD Anomaly of heart of fetus affecting , antepartum, single or unspecified fetus (Primary Dx) 06/29/2023 Travel 06/29/2023 2:45 PM CDT Office Visit [facility] [address] [facility] [address] [place] [phone] Swati Hurst MD Congenital heart defect (Primary Dx) 06/29/2023 2:15 PM CDT - 06/29/2023 11:59 PM CDT Hospital Encounter [facility] Medicine [facility] [address] [facility] [address] [place] [phone] Swati Hurst MD abnormality affecting management of mother, single or unspecified fetus Discharge Disposition: Home or Self Care from Last 3 Months Allergies Active Allergy Reactions Criticality Noted Date Comments Willis Extract Difficulty breathing,Rash,Shortness Of Breath High 01/03/2020 [...] see the maternal medical record: Rosemary An MR#:[id number] Delivery hospital: [facility] DIAGNOSIS: DIAGNOSIS / DIAGNOSES: 1) CHD-Shone's Complex, coarcation of the aorta GENETIC (and other) TESTING: MaterniT Genome neg PERTINENT MATERNAL CONDITIONS: 1) + Chlamydia 02/16/23 CARE PLAN: 1) Ultrasounds - q 4 08/30 2) Other Imaging - echo 05/19, 07/13, 08/18- no further echoes 3) surveillance - weekly BPP at 32 weeks, Fridays in [place] 4) Relocation - 5) care with [facility] 6) Labs - (look in media tab [...] Surg- TBD DELIVERY PLAN: 1) Hospital - [facility] 2) Gestational age - IOL 39w3d 0730 09/28/23 3) Route - 4) Notifications in labor - 5) Genetics/specimen collection for baby: Needs consent for cordblood testing ([id number]) 08/30 BABY PLAN: 1) Baby to go [...] delivery. REFERRING PROVIDER(S): 1) Primary OB Provider: [facility] 2) Other Sub-Specialty Provider: 3) Anticipated Pediatric Provider: DEMOGRAPHICS: Patient contact info: [address] [facility] [address] Partner's name: Aries Baby's name: Estimated Date [...] 09/28/2023 7:30 AM CDT Appointment Danita Starr [facility] [address] [place] [phone] Procedures Procedure Name Priority Date/Time Associated Diagnosis Comments GROUP B STREP PCR Routine 08/31/2023 3:4 7 PM CDT Supervision of high risk in third trimester [facility] US COMPREHENSIVE SINGLE F/U Routine 08/31/2023 2:52 PM CDT related condition, antepartum [facility] BPP SINGLE Routine 08/19/2023 12:31 PM CDT related condition, antepartum ECHO COMPLETE Routine 08/19/2023 1 1:23 AM CDT Anomaly of heart of fetus affecting , antepartum, single or unspecified fetus [facility] US COMPREHENSIVE SINGLE F/U Routine 07/31/2023 2:45 PM CDT Congenital heart defect ECHO COMPLETE Routine 07/14/2023 1 0:10 AM CDT Anomaly of heart of fetus affecting , antepartum, single or unspecified fetus [facility] US COMPREHENSIVE SINGLE F/U Routine 06/29/2023 2:58 [...] Xpert GBS LB Assay, performed on the [employer]?? [employer] Systems, is a qualitative in vitro [...] settings. The device is not intended for tdqnj-kf-flau use. Gudelia Sahni [facility] - MICRO GENE [employer] ORDERABLES [facility] Inf. Diseases Diag. Lab [address] [facility], Room [address] [place] [phone] * [facility] US Comprehensive Single F/U (08/31/2023 2:52 PM CDT) Only [...] appeared normal. 6. The BPP was 10/21. Narrative 09/01/2023 5:38 PM CDT ?Comp Follow Up ----- Pat. Name: ROSEMARY NARAYAN ? Study Date: ??08/31/2023 2:23pm Pat. NO: ??[id number] ?Referring ??MD: FRANCIA GILMAN Site: ? Director Women: Kassie Jackson RDMS : ??2000 ?Age: ?? [...] ?oz Head / Face / Neck Biometry: [employer] Counter Person ?4.8 ? mm CM ? 6.2 ? mm ANATOMY ----- The following structures appear abnormal: Heart / Thorax ?4-chamber view: coarctation of the aorta. LVOT view. 0-xarkfj-valvelz view. The following structures appear normal: Head [...] ongoing recommendations. Continue weekly surveillance (scheduled with [place]). She is scheduled for induction on 09/27. If you have questions regarding today's evaluation or if we can be of further service, please contact the Maternal- Medicine Center. anomalies may be present but not detected Procedure Note Hetal Parra MD - 09/01/2023 Comp Follow Up ----- Pat. Name: ROSEMARY NARAYAN Study Date: 08/31/2023 2:23pm Pat. NO: [id number] Referring MD: FRANCIA GILMAN Site: Director Women: Kassie Jackosn RDMS : 2000 Age: 23 ----- INDICATION [...] 12oz Head / Face / Neck Biometry: [employer] Counter Person 4.8mm CM 6.2mm ANATOMY ----- The following structures appear abnormal: Heart / Thorax 4-chamber view: coarctation of theaorta. LVOT view. 9-nyprjv-nnnbwji view. The following structures appear normal: Head [...] andongoing recommendations. Continue weekly surveillance (scheduled with [place]). She isscheduled for induction on 09/27. If [...] The BPP was 10/21. Jair Sanchez MD [facility] US ORDERABL * [facility] BPP Single (08/19/2023 12:31 PM CDT) Anatomical Region Laterality Modality Ultrasound 08/19/2023 12:1 1 PM CDT Impressions 08/19/2023 4:47 PM CDT IMPRESSION ----- 1) Law intrauterine at 33w 5d gestational age. 2) The BPP is reassuring. 3) The amniotic fluid volume appeared normal. Narrative 08/19/2023 4:47 PM CDT ?BPP ----- Pat. Name: ROSEMARY NARAYAN ? Study Date: ??08/19/2023 12:11pm Pat. NO: ??[id number] ?Referring ??MD: GUDELIA SAHNI Site: ??[facility] ? Director Women: Molly Bernal RDMS : ??2000 ?Age: ?? [...] NARAYAN Study Date: 08/19/2023 12:11pm Pat. NO: [id number] Referring MD: GUDELIA SAHNI Site: [facility] Director Women: Molly PHUONG Bernal : 2000 Age: 22 ----- INDICATION ----- [...] [facility] am[facility]otic fluid volume appeared normal. [facility] * ECHO COMPLETE (08/19/2023 11:23 AM CDT) Anatomical Region Laterality Modality Ultrasound 08/19/2023 10:5 5 AM CDT Narrative 08/20/2023 8:33 AM CDT [id number]^SUNITHACARLOS ALBERTO ? Study ID: [id number] ?[facility] ?[facility] ?[address] ?[place] [address] ? Echocardiogram Name: ROSEMARY NARAYAN Study Date: [...] date: 10/02/2023. Gestational age: 33w5d. Delivery at: [place]. Specific Indication: echocardiogram performed for suspected coarctation [...] to the patient. Delivery is recommended at [facility]. Cardiology consultation and echocardiogram is recommended [...] to the left atrium. There is laminar pyuse-gd-pmco shunting across the foramen ovale. Atrioventricular valves: [...] Procedure Note Yonatan Black MD - 08/20/2023 [id number]^HORACIO^CARLOS ALBERTO Study ID:[id number] [facility] [address] [address] Echocardiogram Name: GRZEGORZ AN ROSEMARY L Study Date: 08/19/2023 10:55 AM Patient Location:[facility] Gender: Female Patient Class:Outpatient : 2000 Age: 22 yrs Ordering Provider: CARLOS ALBERTO LEONARD Referring Provider: FRANCIA GILMAN Performed By: Fabiola Sahni Physician: Yonatan Black MD Reason For Study: Anomaly of heart of fetus affecting ,antepartum, singl Data: Number of fetuses: This is a law gestation. Duedate: 10/02/2023. Gestational age: 33w5d. Delivery at: [place]. Specific Indication: echocardiogram performed for suspected coarctation [...] to the patient. Delivery is recommended at [facility]. Cardiology consultation and echocardiogram is recommended [...] in to the left atrium. There is fdezrbcjgvxu-wr-uxly shunting across the foramen ovale. Atrioventricular valves: [...] AM CDT Narrative 07/14/2023 10:23 AM CDT [id number]^ASTON^YIFAN ? Study ID: [id number] ?[facility] ?[facility] ?[address] ?[place] [address] ? Echocardiogram Name: ROSEMARY NARAYAN Study Date: 07/14/2023 08:18 AM ? Patient Location: [facility] Gender: Female ?Patient Class: Outpatient [...] blood. pressure gradient. Delivery is recommended at [facility]. Cardiology consultation and echocardiogram is recommended [...] to the left atrium. There is laminar wsoas-ew-xlcw shunting across the foramen ovale. Atrioventricular valves: [...] Note Carlos Alberto Leonard MD - 07/14/2023 [id number]^ASTON^YIFAN Study ID:[id number] [facility] [address] [address] Echocardiogram Name: ROSEMARY NARAYAN Study Date: 07/14/2023 08:18 AM Patient Location: [facility] Gender: Female Patient Class:Outpatient : [...] pressure gradient. Delivery is recommended [facility]. Cardiology consultation and echocardiogram isrecommended immediately [...] in to the left atrium. There is gbskcbowrnkz-mp-ivjl shunting across the foramen ovale. Atrioventricular valves: [...] anomalies orcoronary artery anomalies. Reading Physician: Carlos Alebrto Leonard MD 07/14/2023 10:23 AM Yifan Aponte MD CV PEDS ECHO ORDERAB LES from Last 3 Months Care Teams Cvir Tech Relationship Specialty Start Date End Date No Ref-Primary, Physician PCP - General 05/08/23
--- OUTSIDE RECORDS SUMMARY | 2023-09-04 12:33 | XMS_ITS | Encounter Summary ---
Author Organization [place] Address [address] [place] [address] Care Team Providers Care Gum Sprayer Name Role Phone No Ref-Primary, Physician Primary Care Provider Reason for Referral * (Routine) - Closed Specialty Diagnoses / Procedures Referred By Contac t Referred To Contact Cardiology Diagnoses Anomaly of heart of fetus affecting , antepartum, single or unspecified fetus Procedures Echo (TTE) Complete Yifan Clancy MD [address] [place] [address] [facility] [address] [place] [phone] Referral ID Status Reason Start Date Expiration Date Visits Re quested Visits Authorized [id number] Closed 07/14/2023 07/06/2024 1 1 Reason for Visit * (Routine) - Closed Specialty Diagnoses / Procedures Referred By Contac t Referred To Contact Cardiology Diagnoses Anomaly of heart of fetus affecting , antepartum, single or unspecified fetus Procedures Echo (TTE) Yifan Gamez MD [address] [place] [address] [facility] [address] [place] [phone] Referral ID Status Reason Start Date Expiration Date Visits Re quested Visits Authorized [id number] Closed 07/14/2023 07/06/2024 1 1 Encounter Details Date Type Department Care Team (Latest Contact Info) Description 07/14/2023 7:45 AM CDT - 07/14/2023 11:59 PM CDT Hospital Encounter [facility] [address] [place] [phone] Yifan Clancy MD [address] [place] [address] Anomaly of heart of fetus affecting , [...] Info) Description 09/28/2023 7:30 AM CDT Appointment [facility] [address] [place] [phone] documented as of this encounter Procedures Procedure Name Priority Date/Time Associated Diagnosis Comments ECHO COMPLETE Routine 07/14/2023 1 0:10 AM CDT Anomaly of heart of fetus affecting , antepartum, single or unspecified fetus documented in this encounter Results * ECHO COMPLETE (07/14/2023 10:10 AM CDT) Anatomical Region Laterality Modality Echocardiography 07/14/2023 8:18 AM CDT Narrative 07/14/2023 10:23 AM CDT [id number]^ASTON^YIFAN ? Study ID: [id number] ?[facility] ?[facility] ?[address] ?[place] [address] ? Echocardiogram Name: GRZEGORZ AN RA Gutierres Study Date: 07/14/2023 08:18 AM ? Patient [...] blood. pressure gradient. Delivery is recommended at [facility]. Cardiology consultation and echocardiogram is recommended [...] to the left atrium. There is laminar xwrld-kc-lpug shunting across the foramen ovale. Atrioventricular valves: [...] Note Carlos Alberto Ott MD - 07/14/2023 [id number]^ASTON^YIFAN Study ID:[id number] [facility] [address] [address] Echocardiogram Name: GRZEGORZ AN RA Gutierres Study Date: 07/14/2023 08:18 AM Patient Location: [facility] Gender: Female Patient Class:Outpatient : 2000 Age: [...] limb blood. pressure gradient. Delivery is recommended [facility]. Cardiology consultation and echocardiogram isrecommended immediately after [...] in to the left atrium. There is qycunfyvwsvh-nb-sdkc shunting across the foramen ovale. Atrioventricular valves: [...] documented in this encounter Care Teams Gum Sprayer Relationship Specialty Start Date End Date No Ref-Primary, Physician PCP - General 05/08/23 documented as of this encounter
--- OUTSIDE RECORDS SUMMARY | 2023-09-04 12:33 | XMS_ITS | Encounter Summary ---
Author Organization [facility] Address [address] [place] [address]. [place] [address] Care Team Providers Care Retort Cooler Name Role Phone No Ref-Primary, Physician Primary Care Provider Encounter Details Date Type Department Care Team (Late st Contact Info) Description 07/14/2023 Office Visit [facility] [address] [place] [phone] Carlos Alberto Ott MD [address] [place] [id number] cardiac disease affecting , single or unspecified [...] Ott MD - 07/14/2023 10:20 AM CDT [facility] Consult Note Patient: Rosemary Osborne Date of : 2000 Age: [age] year old Date of Visit: 07/14/2023 PCP: No Ref-Primary, Physician Dear Doctor, I had the pleasure of seeing Rosemary Osborne at the [facility] on 07/14/2023 infetal cardiology consultation for echocardiogram [...] today with Rosemary Osborne and her partner. certified nursing attendant was denied by patient. I discussed the cardiac anatomy, function,physiology, and plans for intervention following delivery. Based on today's echocardiogram, this will likely be a 2-ventricular repair with an arch repair. The left ventricle appears apex forming andmildly small due to the dilatation of the right ventricle in setting of a coarctation of the aorta.I recommended delivery at [facility], with plans for post- echocardiogram to [...] care. I spent approximately 50 minutes in lefj-fv-emyp time reviewing the above considerations. Carlos Alberto Ott M.D. Pediatric Cardiology [facility]'[address], 5th floor, [place] [address] documented in this encounter Plan of Treatment Upcoming Encounters Date Type Department Care Team (Late st Contact Info) Description 09/28/2023 7:30 AM CDT Appointment [facility] [address] [place], [place] [address] [phone] documented as of this encounter Visit Diagnoses Diagnosis cardiac disease affecting , single or unspecified fetus- Primary documented in this encounter Care Teams Retort Cooler Relationship Specialty Start Date End Date No Ref-Primary, Physician PCP - General 05/08/23 documented as of this encounter
--- OUTSIDE RECORDS SUMMARY | 2023-09-04 12:34 | XMS_ITS | Encounter Summary ---
Author Organization [place] Address [address] [facility] [place] [address] Care Team Providers Care Press Writer Name Role Phone No Ref-Primary, Physician Primary Care Provider Reason for Referral * Diagnostic Imaging Ultrasound (Routine) - Pending Review Specialty Diagnoses / Procedures Referred By Contac t Referred To Contact Radiology. Diagnoses Congenital heart defect Procedures [facility] US Comprehensive Single F/U Swati Hurst MD [address] [place] [address] Referral ID Status Reason Start Date Expiration Date V isits Requested Visits Authorized [id number] Pending Review 06/29/2023 06/28/2024 1 1 Reason for Visit * Reason Comments Ultrasound RL2-CHD Encounter Details Date Type Department Care Team (Late st Contact Info) Description 06/29/2023 2:45 PM CDT Office Visit [facility] [place] [address] [facility] [address] [place] [address] Swati Hurst MD [address] [place] [address] Congenital heart defect (Primary Dx) [...] 06/29/2023 2:45 PM CDT Patient presents to [facility] for RL2 at 26w3d due to CHD. Positive movement. Denies LOF, vaginal bleeding or cramping/contractions. SBAR given to [facility] , see their note in Epic. documented in this encounter Plan of Treatment Upcoming Encounters Date Type Department Care Team (Late st Contact Info) Description 09/28/2023 7:30 AM CDT Appointment [facility] [address] [place] [phone] documented as of this encounter Results * [facility] US Comprehensive Single F/U (07/31/2023 2:45 [...] ? Study Date: ??07/31/2023 2:19pm Pat. NO: ??[id number] ?Referring ??MD: FRANCIA GILMAN Site: ??[facility] ? Associate Professor Of Management: Justyna Calixto RDMS : ??2000 ?Age: ?? [...] lb 11 ? oz EFW by ?Hadlock ([id number]) Head / Face / Neck Biometry: Evidence Custodian ? 4.0 ? mm CM ?5.2 ? mm ANATOMY ----- The following structures appear abnormal: Heart / Thorax ?4-chamber view: See Echo report by [facility] from 05/20/2023. LVOT view. 3-vessel view. 0-ideqbp-nwzgbmz view. The following structures appear normal: Head [...] We will plan to reassess growth at [facility] in 4 weeks. Return to primary provider [...] NARAYAN Study Date: 07/31/2023 2:19pm Pat. NO: [id number] Referring MD: FRANCIA GILMAN Site: [facility] Associate Professor Of Management: Justyna Calixto RDMS : 2000 Age: 22 [...] 3 lb 11 oz EFW by Hadlock ([id number]) Head / Face / Neck Biometry: Evidence Custodian 4.0 mm CM 5.2 mm ANATOMY ----- The following structures appear abnormal: Heart / Thorax 4-chamber view: See Echo reportby [facility] from 05/20/2023. LVOT view. 3-vessel view.2-vyuhmx-sfibzxa view. The following structures appear normal: Head [...] We will plan to reassess growth at [facility] in 4weeks. Return to primary provider [...] fluid volume appeared normal. Swati Hurst MD [facility] US ORDERABLE S documented in this encounter Visit Diagnoses Diagnosis Congenital heart defect- Primary Unspecified congenital anomaly of heart Congenital heart defect Unspecified congenital anomaly of heart documented in this encounter Care Teams Press Writer Relationship Specialty Start Date End Date No Ref-Primary, Physician PCP - General 05/08/23 documented as of this encounter
--- OUTSIDE RECORDS SUMMARY | 2023-09-04 12:34 | XMS_ITS | Encounter Summary ---
Author Organization [place] Address [address] [place] [address] Care Team Providers Care Welfare Manager Name Role Phone No Ref-Primary, Physician Primary Care Provider Reason for Referral * Diagnostic Imaging Ultrasound (Routine) - Pending Review Specialty Diagnoses / Procedures [facility] Referred To Contact Radiology. Diagnoses abnormality affecting management of mother, single or unspecified fetus Procedures [facility] US Comprehensive Single F/U Swati Hurst MD [address] [place] [address] Referral ID Status Reason Start Date Expiration Date V isits Requested Visits Authorized [id number] Pending Review 06/01/2023 05/31/2024 1 1 Reason for Visit * Diagnostic Imaging Ultrasound (Routine) - Pending Review Specialty Diagnoses / Procedures Referred By Contac Referred To Contact Radiology. Diagnoses abnormality affecting management of mother, single or unspecified fetus Procedures [facility] US Comprehensive Single F/U Swati Hurst MD [address] [facility] [address] [place] [address] Referral ID Status Reason Start Date Expiration Date V isits Requested Visits Authorized [id number] Pending Review 06/01/2023 05/31/2024 1 1 Encounter Details Date Type Department Care Team (Latest Contact Info) Description 06/29/2023 2:15 PM CDT - 06/29/2023 11:59 PM CDT Hospital Encounter [facility] [place] [address] [place] [address] Swati Hurst MD [address] [place] [address] [address] [place] [address] abnormality affecting management of mother, [...] Info) Description 09/28/2023 7:30 AM CDT Appointment [facility] [address] [place] [phone] documented as of this encounter Procedures Procedure Name Priority Date/Time Associated Diagnosis Comments [facility] US COMPREHENSIVE SINGLE F/U Routine 06/29/2023 2:58 PM CDT abnormality affecting management of mother, single or unspecified fetus documented in this encounter Results * [facility] US Comprehensive Single F/U (06/29/2023 2:58 [...] ? Study Date: ??06/29/2023 2:20pm Pat. NO: ??[id number] ?Referring ??: FRANCIA GILMAN Site: ??[facility] ? Planer Off Bearer: Mumtaz Ventura RDMS : ??2000 ?Age: ?? [...] 2 lb 3 ?oz EFW by ?Hadlock ([id number]) Head / Face / Neck Biometry: Teller Head ? 4.6 ? mm CM ?4.7 ? mm ANATOMY ----- The following structures appear abnormal: Heart / Thorax ?4-chamber view: left side of heart is smaller than the right. . 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 . 3-vessel view: small aorta. 6-jflkja-littkef view: small aorta . The following structures [...] on PGE. Plan for repeat assessment with [facility] of cardiac anatomy and growth in 4 weeks. She will likely need to delivery at [place], however, will plan to reevaluate following her [...] the patient (reviewing medical records/tests), in direct agou-yi-gckz contact with the patient during her visit with the majority spent counseling and discussing the plan of care and documenting the visit in the electronic medical record. Please see note for details. Procedure Note Swati Hurst MD - 07/03/2023 Comp Follow Up ----- Pat. Name: RA NARAYAN Study Date: 06/29/2023 2:20pm Pat. NO: [id number] Referring MD: FRANCIA GILMAN Site: [facility] Planer Off Bearer: Mumtaz Ventura RDMS : 2000 Age: 22 [...] 2 lb 3 oz EFW by Hadlock ([id number]-FL) Head / Face / Neck Biometry: Teller Head 4.6 mm CM 4.7 mm ANATOMY ----- The following structures appear abnormal: Heart / Thorax 4-chamber view: left side of heart issmaller than the right. . LVOT view: mitral valve hypoplasia . Aortic archview: hypoplasia of aortic isthmus . 3-vessel view: small aorta.9-qetyjm-mwvlasg view: small aorta . 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 Per cardiology, this anatomy may be dependenton PGE. Plan for repeat assessment with [facility] of cardiac anatomy and growth in4 weeks. She will likely need to delivery at [place], however, will planto reevaluate following her next [...] see the patient (reviewing medical records/tests), in suiqydhfsq-vt-ihnm contact with the patient during her visit [...] fluid volume appeared normal. Swati Hurst MD [facility] ORDER[facility] S documented in this encounter Visit Diagnoses Diagnosis abnormality affecting management of mother, single or unspecified fetus documented in this encounter Care Teams Welfare Manager Relationship Specialty Start Date End Date No Ref-Primary, Physician PCP - General 05/08/23 documented as of this encounter
--- OUTSIDE RECORDS SUMMARY | 2023-09-04 12:34 | XMS_ITS | Encounter Summary ---
Author Organization [place] Address [address] [facility] [place] [address] Care Team Providers Care Ham Pumper Name Role Phone No Ref-Primary, Physician Primary [...] AM CDT Appointment [facility] [address] [place] [address] documented as of this encounter Visit Diagnoses Not on filedocumented in this encounter Care Teams Ham Pumper Relationship Specialty Start Date End Date No Ref-Primary, Physician PCP - General 05/08/23 documented as of this encounter
--- OUTSIDE RECORDS SUMMARY | 2023-09-04 12:34 | XMS_ITS | Encounter Summary ---
Author Organization [place] Address [address] [place] [address] Care Team Providers Care Hand Candy Molder Name Role Phone No Ref-Primary, Physician Primary [...] AM CDT Appointment [facility] [address] [place] [address] documented as of this encounter Visit Diagnoses Not on filedocumented in this encounter Care Teams Hand Candy Molder Relationship Specialty Start Date End Date No Ref-Primary, Physician PCP - General 05/08/23 documented as of this encounter
--- OUTSIDE RECORDS SUMMARY | 2023-09-04 12:34 | XMS_ITS | Encounter Summary ---
Author Organization [place] Address [address] [place] [address] Care Team Providers Care Returned Materials Inspector Name Role Phone No Ref-Primary, Physician Primary Care Provider Reason for Referral * Diagnostic Imaging Ultrasound (Routine) - Pending Review Specialty Diagnoses / Procedures Referred By Contac t Referred To Contact Radiology. Diagnoses abnormality affecting management of mother, single or unspecified fetus Procedures [facility] US Comprehensive Single F/U Swati Hurst MD [address] [place] [address] Referral ID Status Reason Start Date Expiration Date V isits Requested Visits Authorized [id number] Pending Review 06/01/2023 05/31/2024 1 1 Reason for Visit * Reason Comments Ultrasound RL2- CHD Encounter Details Date Type Department Care Team (Late st Contact Info) Description 06/01/2023 8:30 AM CDT Office Visit [facility] [place] [address] [facility] [address] [place] [address] Leyda Guzman MD [address] [place] [address] Swati Hurst MD [address] [place] [address] abnormality affecting management of mother, [...] Info) Description 09/28/2023 7:30 AM CDT Appointment [facility] [address] [place] [phone] documented as of this encounter Results * [facility] US Comprehensive Single F/U (06/29/2023 2:58 PM [...] ? Study Date: ??06/29/2023 2:20pm Pat. NO: ??[id number] ?Referring ??MD: FRANCIA GILMAN Site: ??[facility] ? Van Loader: Mumtaz Ventura RDMS : ??2000 ?Age: ?? [...] 2 lb 3 ?oz EFW by ?Hadlock ([id number]-FL) Head / Face / Neck Biometry: Bark Scaler ? 4.6 ? mm CM ?4.7 ? mm ANATOMY ----- The following structures appear abnormal: Heart / Thorax ?4-chamber view: left side of heart is smaller than the right. . 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 . 3-vessel view: small aorta. 6-kzhhko-gnrjmbi view: small aorta . The following structures [...] on PGE. Plan for repeat assessment with [facility] of cardiac anatomy and growth in 4 weeks. She will likely need to delivery at [place], however, will plan to reevaluate following her [...] the patient (reviewing medical records/tests), in direct dhqr-ee-zdtl contact with the patient during her visit with the majority spent counseling and discussing the plan of care and documenting the visit in the electronic medical record. Please see note for details. Procedure Note Swati Hurst MD - 07/03/2023 Comp Follow Up ----- Pat. Name: RA NARAYAN Study Date: 06/29/2023 2:20pm Pat. NO: [id number] Referring MD: FRANCIA GILMAN Site: [facility] Van Loader: Mumtaz Ventura RDMS : 2000 Age: 22 [...] 2 lb 3 oz EFW by Hadlock ([id number]) Head / Face / Neck Biometry: Bark Scaler 4.6 mm CM 4.7 mm ANATOMY ----- The following structures appear abnormal: Heart / Thorax 4-chamber view: left side of heart issmaller than the right. . LVOT view: mitral valve hypoplasia . Aortic archview: hypoplasia of aortic isthmus . 3-vessel view: small aorta.6-rxjmye-esmrxfa view: small aorta . The following structures [...] known cardiac [facility]. [facility] at which time the echocardiogram noted mildhypoplasia of the mitral valve annulus and aortic isthmus. Per cardiology, this anatomy may be dependenton PGE. Plan for repeat assessment with [facility] of cardiac anatomy and growth in4 weeks. She will likely need to delivery at [place], however, will planto reevaluate following her next [...] see the patient (reviewing medical records/tests), in xslmqsomlv-uo-qqte contact with the patient during her visit [...] fluid volume appeared normal. Swati Hurst MD [facility] US ORDERABLE S documented in this encounter Visit Diagnoses Diagnosis abnormality affecting management of mother, single or unspecified fetus- Primary abnormality affecting management of mother, single or unspecified fetus documented in this encounter Care Teams Returned Materials Inspector Relationship Specialty Start Date End Date No Ref-Primary, Physician PCP - General 05/08/23 documented as of this encounter
--- OUTSIDE RECORDS SUMMARY | 2023-09-04 12:34 | XMS_ITS | Encounter Summary ---
Author Organization [place] Address [address] [place] [address]. [place] [address] Care Team Providers Care Customer Project Manager Name Role Phone No Ref-Primary, Physician Primary Care Provider Reason for Referral * (Routine) - Closed Specialty Diagnoses / Procedures Referred By Contac t Referred To Contact Cardiology Diagnoses Anomaly of heart of fetus affecting , antepartum, single or unspecified fetus Procedures Echo (TTE) Complete Yifan Clancy MD [address] [place] [address] [facility] [address] [place] [phone] Referral ID Status Reason Start Date Expiration Date Visits Re quested Visits Authorized [id number] Closed 07/14/2023 07/06/2024 1 1 Encounter Details Date Type Department Care Team (Late st Contact Info) Description 07/07/2023 Orders Only [facility] [address] [place] [address] [facility] [address] [place] [address] Yifan Clancy MD [address] [place] [address] Anomaly of heart of fetus affecting [...] Info) Description 09/28/2023 7:30 AM CDT Appointment [facility] [address] [place] [address] documented as of this encounter Results * ECHO COMPLETE (07/14/2023 10:10 AM CDT) Anatomical Region Laterality Modality Echocardiography 07/14/2023 8:18 AM CDT Narrative 07/14/2023 10:23 AM CDT [id number]^CLANCY^YIFAN ? Study ID: [id number] ?[facility] ?[facility] ?[address] ?[place] [address] ? Echocardiogram Name: GRZEGORZ RA AN Study Date: 07/14/2023 08:18 AM ? Patient Location: [facility] [...] to the left atrium. There is laminar hptho-bn-wtzk shunting across the foramen ovale. Atrioventricular valves: [...] Note Carlos Alberto Ott MD - 07/14/2023 [id number]^CLANCY^YIFAN Study ID:[id number] [facility]'s [address] [address] Echocardiogram Name: RA NARAYAN Study Date: 07/14/2023 08:18 AM Patient Location: [facility] [...] blood. pressure gradient. Delivery is recommended [facility]. Cardiology consultation and echocardiogram isrecommended [...] in to the left atrium. There is eiuugftzqqmn-qn-zzqr shunting across the foramen ovale. Atrioventricular valves: [...] fetus documented in this encounter Care Teams Customer Project Manager Relationship Specialty Start Date End Date No Ref-Primary, Physician PCP - General 05/08/23 documented as of this encounter
--- OUTSIDE RECORDS SUMMARY | 2023-09-04 12:34 | XMS_ITS | Clinical Summary ---
Author Organization [email or web address] Address [place], [place] [address] Care Team Providers Care Field Investigator Name Role Phone Anitha Ojeda DO Primary Care Provider [phone] Allergies Active Allergy Reactions Criticality Noted Date Comments Manning Shortness Of Breath,Rash 01/03/2020 Medications Medication Sig [...] Comments Blood Pressure 121/78 02/18/2022 9:36 AM COMPUTER PUBLISHER Pulse 70 02/18/2022 9:36 AM COMPUTER PUBLISHER Temperature 37.1 ??C (98.8 ??F) 09/30/2021 1:43 PM CD T Respiratory Rate 14 12/21/2020 8:12 AM CDT Oxygen Saturation 99% 02/18/2022 9:36 AM COMPUTER PUBLISHER Inhaled Oxygen Concentration - - Weight 82.6 kg (182 lb) 02/18/2022 9:36 AM COMPUTER PUBLISHER Height 157 cm (5' 1.81) 07/11/2021 [...] CHLAMYDIA TRACH PROBE Routine 05/20/2021 3:33 PM COMPUTER PUBLISHER Routine screening for STI (sexually transmitted infection) ANTI HIV 1/2 Routine 06/29/2020 3:20 PM CDT Leukocytosis, unspecified type Thrombocytosis (HC) from Last 3 Months or Most Recently Relevant to Health Maintenance Results * HPV HIGH RISK (09/12/2022 3:00 PM CDT) TYPE 16 Negative Negative 09/23/2022 5:00 PM CDT [facility] TYPE 18 Negative Negative 09/23/2022 5:00 PM CDT [facility] OTHER HIGH RISK TYPES Negative Negative 09/23/2022 5:00 PM CDT [facility] Other (Other) 09/12/2022 3:0 0 PM CDT 09/17/2022 12:19 PM CDT Narrative [facility] - 09/23/2022 5:00 PM CDT HPV types 16, 18, 31, 33, 35, 39, 45, 51, 52, 56, 58, 59, 66 and 68 DNA were undetectable or below the pre-set threshold. Methodology: Michelle Adela 4800 HPV Test Alley Johnson MD MICROBIOLO GY [facility] [address] [place] [address], [place] * GC CHLAMYDIA TRACH PROBE (05/20/2021 3:33 PM COMPUTER PUBLISHER) CHLAMYDIA PROBE Negative 4:11 AM COMPUTER PUBLISHER [facility] N GONORRHOEAE PROBE Negative 05/21/2021 4:11 AM COMPUTER PUBLISHER [facility] Other URINE SPECIMEN / Unknown Non-Blood / Unknown 05/20/2021 3:33 PM COMPUTER PUBLISHER 05/20/2021 3:34 PM COMPUTER PUBLISHER Madina Goetz MD MICROBIOLOG Y [facility] [address] [place] [address], * ANTI HIV 1/2 (06/29/2020 3:20 PM CDT) Pathologist [facility] HIV-1/HIV-2 ANTIBODY Non-Reacti ve Non-Reacti ve 06/29/2020 9:14 PM CDT [facility] Comment:HIV-1 p24 and HIV-1/ HIV-2 Ab not detected. Blood BLOOD SPECIMEN / Unknown Venipuncture / Unknown 06/29/2020 3:20 PM CDT 06/29/2020 3:20 PM CDT Anitha Ojeda DO SEND OUTS Performing Organization Address [facility]/ZIP Co de Phone Number [facility] [address] [place] [address], from Last 3 Months or Most Recently Relevant to Health Maintenance Care Teams Field Investigator Relationship Specialty Start Date End Date Anitha Ojeda DO [facility] [place] [address] PCP - General Family Practice 07/05/20
--- OUTSIDE RECORDS SUMMARY | 2023-09-04 12:34 | XMS_ITS | Encounter Summary ---
Author Organization [place] Address [address] [place] [address]. [place] [address] Care Team Providers Care Adult Care Provider Name Role Phone No Ref-Primary, Physician Primary Care Provider Encounter Details Date Type Department Care Team (Late st Contact Info) Description 05/21/2023 MyC Medical Advice [facility] [address] [place] [address] Clinic [address] [place] [address] Kym Little, RN Social History [...] Appointment [facility] [address] [place] [address] documented as of this encounter Visit Diagnoses Not on filedocumented in this encounter Care Teams Adult Care Provider Relationship Specialty Start Date End Date No Ref-Primary, Physician PCP - General 05/08/23 documented as of this encounter
--- OUTSIDE RECORDS SUMMARY | 2023-09-04 12:34 | XMS_ITS | Encounter Summary ---
Author Organization [place] Address [facility] [place] [address] Care Team Providers Care Piano Mechanic Apprentice Name Role Phone No Ref-Primary, Physician Primary Care Provider Reason for Referral * Diagnostic Imaging Ultrasound (Routine) - Pending Review Specialty Diagnoses / Procedures [facility] To Contact Radiology. Diagnoses Maternal care for other (suspected) abnormality and damage, cardiac anomalies, fetus 1 Procedures [facility] US Comprehensive Single F/U Leyda Guzman MD [address] [place] [address] Referral ID Status Reason Start Date Expiration Date V isits Requested Visits Authorized [id number] Pending Review 05/08/2023 05/07/2024 1 1 Reason for Visit * Diagnostic Imaging Ultrasound (Routine) - Pending Review Specialty Diagnoses / Procedures Referred By Contac t Referred To Contact Radiology. Diagnoses Maternal care for other (suspected) abnormality and damage, cardiac anomalies, fetus 1 Procedures [facility] Comprehensive Single F/U Leyda Guzman MD [address] [place] [address] Referral ID Status Reason Start Date Expiration Date V isits Requested Visits Authorized [id number] Pending Review 05/08/2023 05/07/2024 1 1 Encounter Details Date Type Department Care Team (Latest Contact Info) Description 06/01/2023 7:52 AM CDT - 06/01/2023 11:59 PM CDT Hospital Encounter [facility] [place] [address] [place] [address] Leyda Guzman MD [address] [place] [address] Swati Hurst MD [address] [place] [address] complicated by congenital heart disease, [...] Info) Description 09/28/2023 7:30 AM CDT Appointment [facility] Birthplace [address] [place] [address] [place] [phone] documented as of this encounter Procedures Procedure Name Priority Date/Time Associated Diagnosis Comments [facility] US COMPREHENSIVE SINGLE F/U Routine 06/01/2023 8:34 AM CDT complicated by congenital heart disease, single or unspecified fetus documented in this encounter Results * [facility] US Comprehensive Single F/U (06/01/2023 [...] ? Study Date: ??06/01/2023 7:57am Pat. NO: ??[id number] ?Referring ??: FRANCIA GILMAN Site: ??[facility] ? [facility] Baster Hand: Mumtaz Ventura RDMS : ??2000 ?Age: ?? [...] 1 lb 1 ?oz EFW by ?Hadlock ([id number]-FL) Head / Face / Neck Biometry: City Engineer ? 5.4 ? mm CM ?5.2 ? mm ANATOMY ----- The following structures appear abnormal: Heart / Thorax ?4-chamber view: Left side of the heart is small . LVOT view. 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 3-vessel view: small aorta. ? 6-pkgfqu-ngllwmn view: small aorta . The following structures [...] the patient (reviewing medical records/tests), in direct updm-ky-yzqe contact with the patient during her visit with the majority spent counseling and discussing the plan of care and documenting the visit in the electronic medical record. Please see note for details. Procedure Note Swati Hurst MD - 06/01/2023 Comp Follow Up ----- Pat. Name: GRZEGORZ FERREIRAJAS RA Study Date: 06/01/2023 7:57am Pat. NO: [id number] Referring MD: FRANCIA GILMAN Site: [facility] Baster Hand: Mumtaz Ventura RDMS : 2000 Age: 22 [...] 1 lb 1 oz EFW by Hadlock ([id number]) Head / Face / Neck Biometry: City Engineer 5.4 mm CM 5.2 mm ANATOMY ----- The following structures appear abnormal: Heart / Thorax 4-chamber view: Left side of the heartis small . LVOT view. 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 1-ruurzq-sjqjexu view: smallaorta . The following structures appear [...] delay today. Plan for repeat assessment with [facility] of cardiac anatomy and growth in4 [...] see the patient (reviewing medical records/tests), in itlaythpch-wj-xpux contact with the patient during her visit [...] fluid volume appeared normal. Leyda Guzman MD [facility] US ORDERABLE S documented in this encounter Visit Diagnoses Diagnosis complicated by congenital heart disease, single or unspecified fetus documented in this encounter Care Teams Piano Mechanic Apprentice Relationship Specialty Start Date End Date No Ref-Primary, Physician PCP - General 05/08/23 documented as of this encounter
--- OUTSIDE RECORDS SUMMARY | 2023-09-04 12:34 | XMS_ITS | Encounter Summary ---
Author Organization [place] Address [address] [facility] [place] [address] Care Team Providers Care School Health Aide Name Role Phone No Ref-Primary, Physician Primary Care Provider Encounter Details Date Type Department Care Team (Late st Contact Info) Description 06/01/2023 Telephone [facility] [place] [address] [place], [place] [phone] Kody Davey [address] [place] [address] Social History Tobacco Use Types [...] as needed moving forward Kody Davey MS, [facility] Licensed Genetic Counselor Pager: [phone] documented in this encounter Plan of Treatment Upcoming Encounters Date Type Department Care Team (Late st Contact Info) Description 09/28/2023 7:30 AM CDT Appointment [facility] [address] [place] [phone] documented as of this encounter Visit Diagnoses Not on filedocumented in this encounter Care Teams School Health Aide Relationship Specialty Start Date End Date No Ref-Primary, Physician PCP - General 05/08/23 documented as of this encounter
--- NOTE | 2023-09-04 13:00 | CRLHL7_ITS ---
For Patients: As a result of the Century Cures Act, medical imaging exams and procedure reports are released immediately into your electronic medical record. You may view this report before your referring provider. If you have questions, please contact your health care provider. INDICATION: complex heart anomaly COMPARISON: 08/28/2023 TECHNIQUE: Real time bolden scale imaging of the fetus was performed. Without non-stress testing. FINDINGS: Sonographic imaging demonstrates a single living intrauterine gestation. Fetus demonstrates a regular cardiac rate of 128 beats per minute. Fetus has a vertex position. The amniotic fluid volume appears normal and there is a single deepest pocket measurement of 5.1 cm. The fetus was active and demonstrated normal breathing movements. There was normal flexion and extension of the trunk and extremities. IMPRESSION: Normal biophysical profile score of 8 out of 8. Dictated by Ayo Anglin MD @ 09/04/2023 1:09:44 PM (Electronically Signed)
== END 2023-09-04 12:32 | disposition home or self-care (01) ==
LOC: US 12:31
PROVIDERS: Visit Provider Obstetrics & Gynecology
DX: O35.BXX0 Maternal care for other (suspected) fetal abnormality and damage, fetal cardiac anomalies, not applicable or unspecified (principal)
CPT/HCPCS: 76819

== ENCOUNTER 2023-09-11 07:09 | Outpatient (CLI) | payer MEDICAID, SELFPAY ==
--- OUTSIDE RECORDS SUMMARY | 2023-09-11 07:12 | XMS_ITS | Encounter Summary ---
Author Organization [place] Address [address] [place] [address] Care Team Providers Care Pharmacy Scheduler Name Role Phone No Ref-Primary, Physician Primary Care Provider Hetal Parra MD Unavailable [phone] Reason for Visit * Reason Comments Consult Encounter Details Date Type Department Care Team ([facility] st Contact Info) Description 09/09/2023 9:30 AM CDT Virtual Visit [facility] [address] [place] [address] [address] [address] Kimberly Maddox MD [address] [place] [address] Anomaly of heart of fetus affecting [...] as of this encounter Progress Notes * Kimberly Maddox MD - 09/09/2023 9:30 AM CDT I had the 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 Details of the type and timing of intervention would be determined after getting imaging including echocardiograms and CT angiograms. All questions were answered Plan: planning of surgical intervention based on post anatomy and physiology. Time spent in this consult 15 mins -chart review 15 mins- counseling documented in this encounter Nursing Notes * Molly Kinney - 09/09/2023 9:30 AM CDT How would you like to obtain your AVS? MyChart If the video visit is dropped, the invitation should be resent by: Text to cell phone: [phone] Will anyone else be joining your video visit? No documented in this encounter Plan of Treatment Upcoming Encounters Date Type Department Care Team (Late st Contact Info) Description 09/28/2023 7:30 AM CDT Appointment [facility] [address] [place] [phone] documented as of this encounter Visit Diagnoses Diagnosis Anomaly of heart of fetus affecting , antepartum, single or unspecified fetus- Primary documented in this encounter Additional Health Concerns Assessment Noted Time PHQ-9 Depression Total Score: 0 08/19/19 12:54 PM CDT documented as of this encounter Care Teams Pharmacy Scheduler Relationship Specialty Start Date End Date No Ref-Primary, Physician PCP - General 05/08/23 Hetal aPrra MD [address] [address] Assigned OBGYN Provider 09/06/23 documented as of this encounter
--- OUTSIDE RECORDS SUMMARY | 2023-09-11 07:12 | XMS_ITS | Encounter Summary ---
Author Organization [place] Address [address] [facility] [place] [address] Care Team Providers Care Dish Room Worker Name Role Phone No Ref-Primary, Physician Primary Care Provider Encounter Details Date Type Department Care Team (Late st Contact Info) Description 08/19/2023 Documentation Only [facility] [phone] Edda Ohara LICSW Social History Tobacco Use [...] ADAMARIS met with patient, her partner, and Road Design Draftsperson today in the [facility] for a NICU Consult. Rosemary knows she is with a boy and they have chosen to name him Aries after his father. Road Design Draftsperson discussed what is known medically at this time about Aries. Answered parents questions, and discussed what to expect over the first couple of days after Aries is born and admitted to the NICU. ADAMARIS introduced self and role and discussed how ADAMARIS supports families who have babies in the NICU. Also discussed possible options for lodging as Rosemary and Aries live in [place], [place]. ADAMARIS made plan to meet with Rosemary after baby Aries is born to complete a psychosocial assessment and provide supportive intervention. ADAMARIS provided Rosemary and Aries with contact information and encouraged them to be in touch with any questions or needs prior to the of their baby. No additional concerns, questions, or needs identified today. KALEB Holcomb, ROSALINDA Maternal and Child Health Greenhouse Instructor M-F 08:00-16:30 on [employer] Office [email or web address] After hours social work can be reached via [email or web address] After Hours Auto Inspector 1620 to 08 Weekend on-site social work can be reached via [email or web address] Weekend Onsite 08 to 1630 documented in this encounter Plan of Treatment Upcoming Encounters Date Type Department Care Team (Late st Contact Info) Description 09/28/2023 7:30 AM CDT Appointment [facility] [address] [place] [phone] documented as of this encounter Visit Diagnoses Not on filedocumented in this encounter Additional Health Concerns Assessment Noted Time PHQ-9 Depression Total Score: 0 08/19/19 12:54 PM CDT documented as of this encounter Care Teams Dish Room Worker Relationship Specialty Start Date End Date No Ref-Primary, Physician PCP - General 05/08/23 documented as of this encounter
--- OUTSIDE RECORDS SUMMARY | 2023-09-11 07:12 | XMS_ITS | Encounter Summary ---
Author Organization [place] Address [address] [place] [address] Care Team Providers Care Plate And Frame Filter Operator Name Role Phone No Ref-Primary, Physician Primary Care Provider Reason for Referral * Diagnostic Imaging Ultrasound (Routine) - Pending Review Specialty Diagnoses / Procedures Referred By Contac t Referred To Contact Radiology. Diagnoses related condition, antepartum Procedures [facility] US Comprehensive Single F/U Jair Sanchez MD [address] [place] [address] Referral ID Status Reason Start Date Expiration Date V isits Requested Visits Authorized [id number] Pending Review 08/03/2023 08/02/2024 1 1 Reason for Visit * Diagnostic Imaging Ultrasound (Routine) - Pending Review Specialty Diagnoses / Procedures Referred By Contac t Referred To Contact Radiology. Diagnoses related condition, antepartum Procedures [facility] US Comprehensive Single F/U Jair Sanchez MD [address] [place] [address] Referral ID Status Reason Start Date Expiration Date V isits Requested Visits Authorized [id number] Pending Review 08/03/2023 08/02/2024 1 1 Encounter Details Date Type Department Care Team (Latest Contact Info) Description 08/31/2023 2:13 PM CDT - 08/31/2023 11:59 PM CDT Hospital Encounter [facility] [place] [address] [place] [phone] Hetal Parra MD [address] [place], [place] [phone] related condition, antepartum Discharge Disposition: Home or [...] Info) Description 09/28/2023 7:30 AM CDT Appointment [facility] Birth[facility] [address] [place] [phone] documented as of this encounter Procedures Procedure Name Priority Date/Time Associated Diagnosis Comments [facility] COMPREHENSIVE SINGLE F/U Routine 08/31/2023 2:52 PM CDT related condition, antepartum documented in this encounter Results * [facility] Comprehensive Single F/U (08/31/2023 2:52 [...] ? Study Date: ??08/31/2023 2:23pm Pat. NO: ??[id number] ?Referring ??: FRANCIA GILMAN Site: ? [facility] Consultant: Kassie Jakcson RDMS : ??2000 ?Age: ?? 23 ----- [...] ?oz Head / Face / Neck Biometry: Regulatory Assistant ?4.8 ? mm CM ? 6.2 ? mm ANATOMY ----- The following structures appear abnormal: Heart / Thorax ?4-chamber view: coarctation of the aorta. LVOT view. 2-sinnye-rrmzhnt view. The following structures appear normal: Head [...] ongoing recommendations. Continue weekly surveillance (scheduled with [facility]). She is scheduled for induction on 09/27. If you have questions regarding today's evaluation or if we can be of further service, please contact the [facility] Center. anomalies may be present but not detected Procedure Note Hetal Parra MD - 09/01/2023 Comp Follow Up ----- Pat. Name: RA NARAYAN Study Date: 08/31/2023 2:23pm Pat. NO: [id number] Referring MD: FRANCIA GILMAN Site: [facility] Consultant: Kassie [place] RDMS : 2000 Age: 23 [...] 12oz Head / Face / Neck Biometry: Regulatory Assistant 4.8mm CM 6.2mm ANATOMY ----- The following structures appear abnormal: Heart / Thorax 4-chamber view: coarctation of theaorta. LVOT view. 0-mvadok-mexqizn view. The following structures appear normal: Head [...] with our office. Please see documentation in [facility] for full details from today's visit andongoing [...] The BPP was 8/8. Jair Sanchez MD [facility] US ORDERABL ES documented in this encounter Visit Diagnoses Diagnosis related condition, antepartum documented in this encounter Additional Health Concerns Assessment Noted Time PHQ-9 Depression Total Score: 0 08/19/19 24 12:54 PM CDT documented as of this encounter Care Teams Plate And Frame Filter Operator Relationship Specialty Start Date End Date No Ref-Primary, Physician PCP - General 05/08/23 documented as of this encounter
--- OUTSIDE RECORDS SUMMARY | 2023-09-11 07:12 | XMS_ITS | Encounter Summary ---
Author Organization [place] Address [facility] [place] [address] Care Team Providers Care Maid Cleaning Cooking Name Role Phone No Ref-Primary, Physician Primary [...] Info) Description 09/28/2023 7:30 AM CDT Appointment [facility] [address] [place] [phone] documented as of this encounter Visit Diagnoses Not on filedocumented in this encounter Additional Health Concerns Assessment Noted Time PHQ-9 Depression Total Score: 0 08/19/19 24 12:54 PM CDT documented as of this encounter Care Teams Maid Cleaning Cooking Relationship Specialty Start Date End Date No Ref-Primary, Physician PCP - General 05/08/23 documented as of this encounter
--- OUTSIDE RECORDS SUMMARY | 2023-09-11 07:12 | XMS_ITS | Encounter Summary ---
Author Organization [place] Address [address] [facility] [place] [address] Care Team Providers Care Automotive Manufacturer Name Role Phone No Ref-Primary, Physician Primary Care Provider Reason for Visit * Reason Comments Genetic Counseling CHD * Consultation (Routine: Next available opening) - Pending Review Specialty Diagnoses / Procedures Referred By Contac t Referred To Contact Diagnoses Abnormal ultrasound Swati Hurst MD [address] [address] Referral ID Status Reason Start Date Expiration Date V isits Requested Visits Authorized [id number] Pending Review 08/04/2023 08/03/2024 1 1 Encounter Details Date Type Department Care Team (Late st Contact Info) Description 08/31/2023 3:00 PM CDT Office Visit [facility] [place] [address] [place], [place] [phone] Hetal Parra MD [address] [facility] [address] [place], [place] [phone] Adriana Gómez GC [address] [place] [address] Abnormal ultrasound (Primary Dx); Encounter [...] Gómez GC - 08/31/2023 3:00 PM CDT [facility] [place] Genetic Counseling Consult Patient: Rosemary Osborne Date of : 2000 Date of Service: 08/31/23 Rosemary Osborne was seen at [facility] for genetic consultation to discuss the options [...] with limited G-bands on cord blood testing ([id number]). We discussed possible results including positive, negative, and uncertainty. Array cannot completely rule outthe possibility of all genetic conditions such as single gene disorders. It was a pleasure to be involved with Rosemary 's care. Alwk-zx-phqj time of the meeting was <15 minutes. Adriana Gómez MS, [facility] Licensed Genetic Counselor [facility] Pager: [phone] Office: [phone] documented in this encounter Plan of Treatment Upcoming Encounters Date Type Department Care Team (Late st Contact Info) Description 09/28/2023 7:30 AM CDT Appointment [facility] Birthplace [address] [place] [address] [place] [phone] documented as of this encounter Visit Diagnoses Diagnosis Abnormal ultrasound- Primary Abnormal findings on screening Encounter for procreative genetic counseling and testing documented in this encounter Additional Health Concerns Assessment Noted Time PHQ-9 Depression Total Score: 0 08/19/19 12:54 PM CDT documented as of this encounter Care Teams Automotive Manufacturer Relationship Specialty Start Date End Date No Ref-Primary, Physician PCP - General 05/08/23 documented as of this encounter
--- OUTSIDE RECORDS SUMMARY | 2023-09-11 07:12 | XMS_ITS | Encounter Summary ---
Author Organization [place] Address [address] [place] [address]. [place] [address] Care Team Providers Care Heat Regulator Name Role Phone No Ref-Primary, Physician Primary Care Provider Hetal Parra MD Unavailable [phone] Encounter Details Date Type Department Care Team (Late st Contact Info) Description 09/02/2023 MyC Medical Advice [facility] [address] [place] [address] Clinic [address] [place] [address] Soumya Rodriguez LPN Social History [...] Info) Description 09/28/2023 7:30 AM CDT Appointment [facility] Birthplace [address] [place] [address] documented as of this encounter Visit Diagnoses Not on filedocumented in this encounter Additional Health Concerns Assessment Noted Time PHQ-9 Depression Total Score: 0 08/19/19 24 12:54 PM CDT documented as of this encounter Care Teams Heat Regulator Relationship Specialty Start Date End Date No Ref-Primary, Physician PCP - General 05/08/23 Hetal Parra MD [address] [address] Assigned OBGYN Provider 09/06/23 documented as of this encounter
--- OUTSIDE RECORDS SUMMARY | 2023-09-11 07:12 | XMS_ITS | Encounter Summary ---
Author Organization [place] Address [address] [facility] [place] [address] Care Team Providers Care Kitchen Supervisor Name Role Phone No Ref-Primary, Physician Primary Care Provider Hetal Parra MD Unavailable [phone] Reason for Visit * Reason Onset Date Comments Clinic Care Coordination - Follow-up 09/07/2023 Cordblood consent Encounter Details Date Type Department Care Team (Late st Contact Info) Description 09/07/2023 Telephone [facility] [place] [address] [facility] [address] [place] [address] Adriana Gómez GC [address] [place] [address] Clinic Care Coordination - Follow-up (Cordblood consent) Social History Tobacco Use Types Packs/Day Years [...] encounter Miscellaneous Notes * Telephone Encounter - Adriana Gómez GC - 09/07/2023 11:17 AM CDT September 07, 2023 I called Rosemary to follow-up to inquire if she desires to consent for cordblood array and in-patientgenetics consult for her baby after delivery. I had met with her on 08-31-23 to discuss and she haddesired more time to consider this. She answered her phone this morning and stated she does desire to have this done. She requested I call her this afternoon to review consent as she is busy at the moment. Called Rosemary this afternoon, as planned, and received voicemail. I left a message for her to call me back this afternoon or I will attempt again tomorrow. September 08, 2023 I called Rosemary back today and got voicemail. Left a message requesting a call back. Adriana Gómez MS, [facility] Licensed Genetic Counselor [facility] Pager: [phone] Office: documented in this encounter Plan of Treatment Upcoming Encounters Date Type Department Care Team (Late st Contact Info) Description 09/28/2023 7:30 AM CDT Appointment [place] [facility] Birthplace [address] [place] [phone] documented as of this encounter Visit Diagnoses Not on filedocumented in this encounter Additional Health Concerns Assessment Noted Time PHQ-9 Depression Total Score: 0 08/19/19 24 12:54 PM CDT documented as of this encounter Care Teams Kitchen Supervisor Relationship Specialty Start Date End Date No Ref-Primary, Physician PCP - General 05/08/23 Hetal Parra MD [address] [address] [address] Assigned OBGYN Provider 09/06/23 documented as of this encounter
--- OUTSIDE RECORDS SUMMARY | 2023-09-11 07:12 | XMS_ITS | Encounter Summary ---
Author Organization [place] Address [address] [place] [address] Care Team Providers Care Strategic Analyst Name Role Phone No Ref-Primary, Physician Primary Care Provider Encounter Details Date Type Department Care Team ([facility] st Contact Info) Description 08/19/2023 Office Visit [facility] Services - Heart & Vascular Service Line [address] [place] [phone] Yonatan Black MD [facility] [address] [address] cardiac disease affecting , single or unspecified [...] pleasure of seeing Rosemary Osborne at the [facility] in [place] on 08/19/2023 in ongoing consultation for echocardiography [...] cardiology consultation. -- Delivery should occur at [facility]. Thank you for allowing me to participate in Ms. Wilfrido Osborne's care. Please don't hesitate to contact me or the Cardiology team at [facility] with any questions or concerns. I spent a total of 60 minutes on the date of the encounter doing chart review, patient history, documentation, counseling, and coordinating care. Yonatan Black MD Pediatric Cardiology [facility] Review of the result(s) of each unique test - echocardiogram documented in this encounter Plan of Treatment Upcoming Encounters Date Type Department Care Team (Late st Contact Info) Description 09/28/2023 7:30 AM CDT Appointment [facility] [address] [place] [phone] documented as of this encounter Visit Diagnoses Diagnosis cardiac disease affecting , single or unspecified fetus- Primary documented in this encounter Additional Health Concerns Assessment Noted Time PHQ-9 Depression Total Score: 0 08/19/19 12:54 PM CDT documented as of this encounter Care Teams Strategic Analyst Relationship Specialty Start Date End Date No Ref-Primary, Physician PCP - General 05/08/23 documented as of this encounter
--- OUTSIDE RECORDS SUMMARY | 2023-09-11 07:12 | XMS_ITS | Encounter Summary ---
Author Organization [place] Address [facility] [place] [address] Care Team Providers Care Motor Runner Name Role Phone No Ref-Primary, Physician Primary Care Provider Reason for Visit * Reason Comments Ultrasound RL2/BPP: CHD, coarctation of aorta Encounter Details Date Type Department Care Team (Late st Contact Info) Description 08/31/2023 2:45 PM CDT Office Visit [facility] [place] [address] [place], [place] [address] Hetal Parra MD [address] [place] [address] complicated by congenital heart disease, [...] in the Maternal- Medicine Center at the [facility] today. For a detailed report of the ultrasound examination, please see the ultrasound report which can be found under the imaging tab. If you have questions regarding today's evaluation or if we can be of further service, please contact the Maternal- Medicine Center. Hetal Parra MD Welder Tech, RUBBER TESTER Maternal- Medicine [phone] (Pager) documented in this encounter Plan of Treatment Upcoming Encounters Date Type Department Care Team (Late st Contact Info) Description 09/28/2023 7:30 AM CDT Appointment [facility] [address] [place] [phone] documented as of this encounter Visit Diagnoses Diagnosis complicated by congenital heart disease, single or unspecified fetus- Primary documented in this encounter Additional Health Concerns Assessment Noted Time PHQ-9 Depression Total Score: 0 08/19/19 24 12:54 PM CDT documented as of this encounter Care Teams Motor Runner Relationship Specialty Start Date End Date No Ref-Primary, Physician PCP - General 05/08/23 documented as of this encounter
--- OUTSIDE RECORDS SUMMARY | 2023-09-11 07:12 | XMS_ITS | Clinical Summary ---
Author Organization [place] Address [address] [facility] [place] [address] Care Team Providers Care Career Discovery Teacher Name Role Phone No Ref-Primary, Physician Primary Care Provider Hetal Parra MD Unavailable [phone] Allergies Active Allergy Reactions Criticality Noted Date Comments [place] Extract Difficulty breathing,Rash,Shortness Of Breath High 01/03/2020 [...] please see the maternal medical record: Rosemary Nenita Osborne MR#:[id number] Delivery hospital: [facility] DIAGNOSIS: DIAGNOSIS / DIAGNOSES: 1) CHD-Shone's Complex, coarcation of the aorta GENETIC (and other) TESTING: MaterniT Genome neg PERTINENT MATERNAL CONDITIONS: 1) + Chlamydia 02/16/23 CARE PLAN: 1) Ultrasounds - q 4 08/30 2) Other Imaging - echo 05/19, 07/13, 6/5- no further echoes 3) surveillance - weekly BPP at 32 weeks, Fridays in [place] 4) Relocation - 5) care with - [place] 6) Labs - (look in media tab [...] Surg- TBD DELIVERY PLAN: 1) Hospital - [facility] 2) Gestational age - IOL 39w3d 0730 09/28/23 3) Route - 4) Notifications in labor - 5) Genetics/specimen collection for baby: Needs consent for cordblood testing ([id number]) 08/30 BABY PLAN: 1) Baby to go [...] delivery. REFERRING PROVIDER(S): 1) Primary OB Provider: [facility] 2) Other Sub-Specialty Provider: 3) Anticipated Pediatric Provider: DEMOGRAPHICS: Patient contact info: [address] [facility] [address] Partner's name: Aries Baby's name: Estimated Date of Delivery Comme nts Yes 10/02/2023 Based on Ultraso und No additional problems on file Encounters Date Type Department Care Team Description 09/09/2023 9:30 AM CDT Virtual Visit [facility] [address] [facility] [address]th [facility] [phone] Kimberly Maddox MD Anomaly of heart of fetus affecting , antepartum, single or unspecified fetus (Primary Dx) 09/07/2023 Telephone [facility] [address] [facility] [address] [place] [phone] Adriana Gómez GC Clinic Care Coordination - Follow-up (Cordblood consent) 09/02/2023 MyC Medical Advice [facility] [address] [facility] [address] [place] [phone] Soumya Rodriguez LPN 08/31/2023 3:00 PM CDT Office Visit [facility] [address] [place] [address] Hetal Parra MD Johnson, Kate Talbot, CN Supervision of high risk in third trimester (Primary Dx); complicated by congenital heart disease, single or unspecified fetus 08/31/2023 3:00 PM CDT Office Visit [facility] [address] [place] [address] Hetal Parra MD Stoner, Natalie E, GC Abnormal ultrasound (Primary Dx); Encounter for procreative genetic counseling and testing 08/31/2023 2:45 PM CDT Office Visit [facility] [address] [place] [address] Hetal Parra MD complicated by congenital heart disease, single or unspecified fetus (Primary Dx) 08/31/2023 2:13 PM CDT - 08/31/2023 11:59 PM CDT Hospital Encounter [facility] [address] [place] [phone] Hetal Parra MD related condition, antepartum Discharge Disposition: Home or Self Care 08/31/2023 Travel 08/19/2023 12:15 PM CDT Office Visit [facility] [address] [place] [address] Leyda Guzman MD complicated by congenital heart disease, single or unspecified fetus (Primary Dx) 08/19/2023 11:45 AM CDT - 08/19/2023 11:59 PM CDT Hospital Encounter [facility] [address] [place] [phone] Leyda Guzman MD related condition, antepartum Discharge Disposition: Home or Self Care 08/19/2023 10:00 AM CDT Office Visit [facility] [address] [place] [phone] Gudelia Sahni CNM related condition, antepartum 08/19/2023 9:30 AM CDT Office Visit [facility] [address] [place] [phone] Gudelia Sahni CNM Supervision of high risk in third trimester (Primary Dx); complicated by congenital heart disease, single or unspecified fetus 08/19/2023 9:25 AM CDT - 08/19/2023 11:44 AM CDT Hospital Encounter [facility] [address] [place] [phone] Leyda Guzman MD Urmfmusfet Anomaly of heart of fetus affecting , antepartum, single or unspecified fetus Discharge Disposition: Home or Self Care 08/19/2023 Office Visit [facility] Services - Heart & Vascular Service Line [address] [place] [phone] Yonatan Black MD cardiac disease affecting , single or unspecified fetus (Primary Dx) 08/19/2023 Documentation Only [facility] CASE MANAGEMENT [phone] Edda Ohara HARNESS FITTER 08/19/2023 Orders Only [facility] [address] [place] [address] [facility] [address] [place] [phone] Carlos Alberto Leonard MD Anomaly of heart of fetus affecting , antepartum, single or unspecified fetus (Primary Dx) 08/19/2023 Travel 08/17/2023 MyC Medical Advice [facility] [address] [facility] [address] [place] [phone] Soumya Rodriguez LPN 08/04/2023 Orders Only [facility] [address] [address] Louise Hlaey GC Abnormal ultrasound (Primary Dx) 08/04/2023 Telephone [facility] [address] [place] [address] Shaunna Nolasco, RN Appointment 08/04/2023 Orders Only [facility] [address] [address] Shaunna Nolasco RN related condition, antepartum (Primary Dx) 08/03/2023 Telephone [facility] [address] [address] Shaunna Nolasco RN Appointment 08/03/2023 Orders Only [facility] [address] [place] [address] Shaunna Nolasco RN related condition, antepartum (Primary Dx) 07/31/2023 2:45 PM CDT Office Visit [facility] [address] [facility] [address] [place] [phone] Jair Sanchez MD complicated by congenital heart disease, single or unspecified fetus (Primary Dx) 07/31/2023 2:08 PM CDT - 07/31/2023 11:59 PM CDT Hospital Encounter [facility] [address] [facility] [address] [place] [phone] Jair Sanchez MD Congenital heart defect Discharge Disposition: Home or Self Care 07/31/2023 Travel 07/14/2023 7:45 AM CDT - 07/14/2023 11:59 PM CDT Hospital Encounter [facility] [address] [place] [phone] Yifan Aponte MD Anomaly of heart of fetus affecting , antepartum, single or unspecified fetus Discharge Disposition: Home or Self Care 07/14/2023 Office Visit [facility] [address] [place] [phone] Carlos Alberto Leonard MD cardiac disease affecting , single or unspecified fetus (Primary Dx) 07/14/2023 Travel 07/07/[address] [facility] [address] [place] [address] Clinic [address]th [place] [phone] Yifan Aponte MD Anomaly of heart of fetus affecting , antepartum, single or unspecified fetus (Primary Dx) 06/29/2023 2:45 PM CDT Office Visit [facility] [address] [facility] [address] [place] [phone] Swati Hurst MD Congenital heart defect (Primary Dx) 06/29/2023 2:15 PM CDT - 06/29/2023 11:59 PM CDT Hospital Encounter [facility] [address] [facility] [address] [place] [phone] Swati Hurst MD abnormality affecting management of [...] Description 09/28/2023 7:30 AM CDT Appointment [facility] [address] [place] [phone] Health Maintenance Due Date Last Done Comments [...] Supervision of high risk in third trimester [facility] COMPREHENSIVE SINGLE F/U Routine 08/31/2023 2:52 PM CDT related condition, antepartum [facility] BPP SINGLE Routine 08/19/2023 12:31 PM CDT related condition, antepartum ECHO COMPLETE Routine 08/19/2023 1 1:23 AM CDT Anomaly of heart of fetus affecting , antepartum, single or unspecified fetus [facility] COMPREHENSIVE SINGLE F/U Routine 07/31/2023 2:45 PM CDT Congenital heart defect ECHO COMPLETE Routine 07/14/2023 1 0:10 AM CDT Anomaly of heart of fetus affecting , antepartum, single or unspecified fetus [facility] COMPREHENSIVE SINGLE F/U Routine 06/29/2023 [...] CDT 08/31/2023 4:06 PM CDT Narrative [facility] - 09/01/2023 11:54 AM CDT The Cepheid Xpert GBS LB Assay, performed on the [employer], is a qualitative in vitro [...] settings. The device is not intended for jbkfk-bx-jnxj use. Gudelia Sahni [facility] - MICRO GENE [email or web address] ORDERABLES [facility] Inf. [facility] Di[facility] [address] [facility] [address] [place] [phone] * [facility] Comprehensive Single F/U (08/31/2023 2:52 [...] appeared normal. 6. The BPP was 8/8. Narrative 09/01/2023 5:38 PM CDT ?Comp Follow Up ----- Pat. Name: ROSEMARY NARAYAN ? Study Date: ??08/31/2023 2:23pm Pat. NO: ??[id number] ?Referring ??MD: FRANCIA GILMAN Site: ? Canvassing Manager: Kassie Jackson RDMS : ??2000 ?Age: ?? [...] ?oz Head / Face / Neck Biometry: Skip Locator ?4.8 ? mm CM ? 6.2 ? mm ANATOMY ----- The following structures appear abnormal: Heart / Thorax ?4-chamber view: coarctation of the aorta. LVOT view. 7-lzslzk-ggwaecm view. The following structures appear normal: Head [...] ongoing recommendations. Continue weekly surveillance (scheduled with [place]). She is scheduled for induction on 09/27. If you have questions regarding today's evaluation or if we can be of further service, please contact the Maternal- Medicine Center. anomalies may be present but not detected Procedure Note Hetal Parra MD - 09/01/2023 Comp Follow Up ----- Pat. Name: ROSEMARY NARAYAN Study Date: 08/31/2023 2:23pm Pat. NO: [id number] Referring MD: FRANCIA GILMAN Site: Canvassing Manager: Kassie Jackson RDMS : 2000 Age: 23 [...] 12oz Head / Face / Neck Biometry: Skip Locator 4.8mm CM 6.2mm ANATOMY ----- The following structures appear abnormal: Heart / Thorax 4-chamber view: coarctation of theaorta. LVOT view. 8-xlnfqh-aagykev view. The following structures appear normal: Head [...] andongoing recommendations. Continue weekly surveillance (scheduled with [place]). She isscheduled for induction on 09/27. If [...] The BPP was 10/21. Jair Sanchez MD [facility] US ORDERABL * [facility] BPP Single (08/19/2023 12:31 PM CDT) Anatomical Region Laterality Modality Ultrasound 08/19/2023 12:1 1 PM CDT Impressions 08/19/2023 4:47 PM CDT IMPRESSION ----- 1) Law intrauterine at 33w 5d gestational age. 2) The BPP is reassuring. 3) The amniotic fluid volume appeared normal. Narrative 08/19/2023 4:47 PM CDT ?BPP ----- Pat. Name: ROSEMARY NARAYAN ? Study Date: ??08/19/2023 12:11pm Pat. NO: ??[id number] ?Referring ??MD: GUDELIA SAHNI Site: ??[facility] ? Canvassing Manager: Molly Bernal RDMS : ??2000 ?Age: [...] NARAYAN Study Date: 08/19/2023 12:11pm Pat. NO: [id number] Referring MD: GUDELIA SAHNI Site: [facility] Canvassing Manager: Molly Bernal RDMS : 2000 Age: [...] The amniotic fluid volume appeared normal. Jair WAHL [facility] US ORDERABL ES * ECHO COMPLETE (08/19/2023 11:23 AM CDT) Anatomical Region Laterality Modality Ultrasound 08/19/2023 10:5 5 AM CDT Narrative 08/20/2023 8:33 AM CDT [id number]^ERLIN ? Study ID: [id number] ?[facility] ?[facility] ?[address] ?[place] [address] ? Echocardiogram Name: ROSEMARY NARAYAN Study Date: 08/19/2023 10:55 AM ?Patient Location: [facility] Gender: Female ? Patient Class: Outpatient : 2000 ?Age: 22 yrs Ordering Provider: CARLOS ALBERTO LEONARD Referring Provider: FRANCIA GILMAN Performed By: Fabiola Sahni Physician: Yonatan Black MD Reason For Study: Anomaly of heart of fetus affecting , antepartum, singl Data: Number of fetuses: This is a law gestation. Due date: 10/02/2023. Gestational age: 33w5d. Delivery at: [place]. Specific Indication: echocardiogram performed for suspected coarctation [...] to the left atrium. There is laminar gprok-yy-skxy shunting across the foramen ovale. Atrioventricular valves: [...] Procedure Note Yonatan Black MD - 08/20/2023 [id number]^HORACIO^CARLOS ALBERTO Study ID:[id number] [facility] [place] [address] Echocardiogram Name: ROSEMARY NARAYAN Study Date: 08/19/2023 10:55 AM Patient Location:[facility] Gender: Female Patient Class:Outpatient : 2000 Age: 22 yrs Ordering Provider: CARLOS ALBERTO LEONARD Referring Provider: FRANCIA GILMAN Performed By: Fabiola Sahni Physician: Yonatan Black MD Reason For Study: Anomaly of heart of fetus affecting ,antepartum, singl Data: Number of fetuses: This is a law gestation. Duedate: 10/02/2023. Gestational age: 33w5d. Delivery at: [facility]. Specific Indication: echocardiogram performed for suspected coarctation [...] in to the left atrium. There is cyensgfvfkde-rd-nnca shunting across the foramen ovale. Atrioventricular valves: [...] AM CDT Narrative 07/14/2023 10:23 AM CDT [id number]^APONTE^YIFAN ? Study ID: [id number] ?[facility] ?[facility] ?[address] ?[place] [address] ? Echocardiogram Name: ROSEMARY NARAYAN Study Date: [...] to the left atrium. There is laminar buqna-oy-cghp shunting across the foramen ovale. Atrioventricular valves: [...] Note Carlos Alberto Leonard MD - 07/14/2023 [id number]^APONTE^YIFAN Study ID:[id number] [facility] [address] [address] Echocardiogram Name: ROSEMARY NARAYAN Study Date: 07/14/2023 [...] pressure gradient. Delivery is recommended [facility]. Cardiology consultation and echocardiogram isrecommended [...] in to the left atrium. There is hsnnwtldjids-un-ynfp shunting across the foramen ovale. Atrioventricular valves: [...] LES from Last 3 Months Care Teams Career Discovery Teacher Relationship Specialty Start Date End Date No Ref-Primary, Physician PCP - General 05/08/23 Hetal Parra MD [address] [place] [address] Assigned OBGYN Provider 09/06/23
--- OUTSIDE RECORDS SUMMARY | 2023-09-11 07:12 | XMS_ITS | Referral Summary ---
Author Organization [place] Address [address] [place] [address]. [place] [address] Care Team Providers Care Legal Contracts Specialist Name Role Phone No Ref-Primary, Physician Primary Care Provider Hetal Parra MD Unavailable [phone] Encounters Date Type Department Care Team Description 09/09/2023 9:30 AM CDT Virtual Visit [facility] [address] [place] [address],[place] [address] Kimberly Maddox MD Anomaly of heart of fetus affecting , antepartum, single or unspecified fetus (Primary Dx) 09/07/2023 Telephone [facility] Maternal Medicine [facility] [address] [facility] [address] [place] [address] Adriana Gómez GC Clinic Care Coordination - Follow-up (Cordblood consent) 09/02/2023 MyC Medical Advice [facility] [address] [place] [phone] Soumya Rodriguez LPN 08/31/2023 Travel 08/31/2023 3:00 PM CDT Office Visit [facility] Maternal Medicine [facility] [address] [place], [place] [address] [place], [place] [address] Hetal Parra MD Johnson, Kate Talbot, LIBIA Supervision of high risk in third trimester (Primary Dx); complicated by congenital heart disease, single or unspecified fetus 08/31/2023 3:00 PM CDT Office Visit [facility] Maternal Medicine [facility] [place] [address] [place] [address] Hetal Parra MD Stoner, Natalie E, GC Abnormal ultrasound (Primary Dx); Encounter for procreative genetic counseling and testing 08/31/2023 2:45 PM CDT Office Visit [facility] Maternal Medicine [facility] [address] [place], [place] [address] [place] [address] Hetal Parra MD complicated by congenital heart disease, single or unspecified fetus (Primary Dx) 08/31/2023 2:13 PM CDT - 08/31/2023 11:59 PM CDT Hospital Encounter [facility] Maternal Medicine [facility] [address] [facility] [address] [place] [phone] Hetal Parra MD related condition, antepartum Discharge Disposition: Home or Self Care 08/19/2023 Office Visit [facility] Line [address] [place] [phone] Yonatan Black MD cardiac disease affecting , single or unspecified fetus (Primary Dx) 08/19/2023 Documentation Only [facility] CASE MANAGEMENT [phone] Edda Ohara, [facility] 08/19/2023 Orders Only [facility] [address] [place] [address] [facility] [address] [place] [phone] Carlos Alberto Leonard MD Anomaly of heart of fetus affecting , antepartum, single or unspecified fetus (Primary Dx) 08/19/2023 Travel 08/19/2023 9:25 AM CDT - 08/19/2023 11:44 AM CDT Hospital Encounter [facility] [address] [place] [phone] Leyda Guzman MD Urmfmusfet Anomaly of heart of fetus affecting , antepartum, single or unspecified fetus Discharge Disposition: Home or Self Care 08/19/2023 10:00 AM CDT Office Visit [facility] Maternal Medicine [facility] [address] [place] [address] Gudelia Sahni CNM related condition, antepartum 08/19/2023 12:15 PM CDT Office Visit [facility] Maternal Medicine [facility] [address] [place] [address] Leyda Guzman MD complicated by congenital heart disease, single or unspecified fetus (Primary Dx) 08/19/2023 11:45 AM CDT - 08/19/2023 11:59 PM CDT Hospital Encounter [facility] Maternal Medicine [facility] [address] [place] [address] Leyda Guzman MD related condition, antepartum Discharge Disposition: Home or Self Care 08/19/2023 9:30 AM CDT Office Visit [facility] Maternal Medicine [facility] [address] [facility] [facility] [place] [place] [address] Gudelia Sahni CNM Supervision of high risk in third trimester (Primary Dx); complicated by congenital heart disease, single or unspecified fetus 08/17/2023 MyC Medical Advice [facility] [address] [facility] [address] [place] [phone] Soumya Rodriguez LPN 08/04/2023 Orders Only [facility] Maternal Medicine [facility] [address] [place] [address] Louise Haley GC Abnormal ultrasound (Primary Dx) 08/04/2023 Telephone [facility] Maternal Medicine [facility] [address] [place] [address] Shaunna Nolasco RN Appointment 08/04/2023 Orders Only [facility] Maternal Medicine [facility] [address] [place] [address] Shaunna Nolasco RN related condition, antepartum (Primary Dx) 08/03/2023 Telephone [facility] M[facility] [place] [address] [place] [address] Shaunna Nolasco RN Appointment 08/03/2023 Orders Only [facility] [place] [address] [place] [address] Shaunna Nolasco RN related condition, antepartum (Primary Dx) 07/31/2023 Travel 07/31/2023 2:45 PM CDT Office Visit [facility] Maternal Medicine [facility] [address] [facility] [address] [place] [phone] Jair Sanchez MD complicated by congenital heart disease, single or unspecified fetus (Primary Dx) 07/31/2023 2:08 PM CDT - 07/31/2023 11:59 PM CDT Hospital Encounter [facility] Medicine [facility] [address] [facility] [address] [place] [phone] Jair Sanchez MD Congenital heart defect Discharge Disposition: Home or Self Care 07/14/2023 Office Visit [facility] [address] [place] [phone] Carlos Alberto Leonard MD cardiac disease affecting , single or unspecified fetus (Primary Dx) 07/14/2023 Travel 07/14/2023 7:45 AM CDT - 07/14/2023 11:59 PM CDT Hospital Encounter [facility] [address] [place] [phone] Yifan Aponte MD Anomaly of heart of fetus affecting , antepartum, single or unspecified fetus Discharge Disposition: Home or Self Care 07/07/2023 Orders Only [facility] [address] [place] [address] [facility] [address] [place] [phone] Yifan Aponte MD Anomaly of heart of fetus affecting , antepartum, single or unspecified fetus (Primary Dx) 06/29/2023 Travel 06/29/2023 2:45 PM CDT Office Visit [facility] Medicine [facility] [address] [facility] [address] [place] [address] Swati Hurst MD Congenital heart defect (Primary Dx) 06/29/2023 2:15 PM CDT - 06/29/2023 11:59 PM CDT Hospital Encounter [facility] Medicine [facility] [address] [facility] [address] [place] [address] Swati Hurst MD abnormality affecting management of mother, single or unspecified fetus Discharge Disposition: Home or Self Care from Last 3 Months Allergies Active Allergy Reactions Criticality Noted Date Comments [place] Extract Difficulty breathing,Rash,Shortness Of Breath High 01/03/2020 [...] see the maternal medical record: Rosemary Osborne MR#:[id number] Delivery hospital: [facility] DIAGNOSIS: DIAGNOSIS / DIAGNOSES: 1) CHD-Shone's Complex, coarcation of the aorta GENETIC (and other) TESTING: MaterniT Genome neg PERTINENT MATERNAL CONDITIONS: 1) + Chlamydia 02/16/23 CARE PLAN: 1) Ultrasounds - q 4 08/30 2) Other Imaging - echo 05/19, 07/13, 08/18- no further echoes 3) surveillance - weekly BPP at 32 weeks, Fridays in [place] 4) Relocation - 5) care with - [facility] 6) Labs - (look in media tab [...] Surg- TBD DELIVERY PLAN: 1) Hospital - [facility] 2) Gestational age - IOL 39w3d 0730 09/28/23 3) Route - 4) Notifications in labor - 5) Genetics/specimen collection for baby: Needs consent for cordblood testing ([id number]) 08/30 BABY PLAN: 1) Baby to go [...] delivery. REFERRING PROVIDER(S): 1) Primary OB Provider: [facility] 2) Other Sub-Specialty Provider: 3) Anticipated Pediatric Provider: DEMOGRAPHICS: Patient contact info: [address] [facility] [address] Partner's name: Aries Baby's name: Estimated Date [...] AM CDT Appointment [facility] [address] [place] [phone] Procedures Procedure Name Priority Date/Time Associated Diagnosis Comments GROUP B STREP PCR Routine 08/31/2023 3:4 7 PM CDT Supervision of high risk in third trimester [facility] US COMPREHENSIVE SINGLE F/U Routine 08/31/2023 2:52 PM CDT related condition, antepartum [facility] BPP SINGLE Routine 08/19/2023 12:31 PM CDT related condition, antepartum ECHO COMPLETE Routine 08/19/2023 1 1:23 AM CDT Anomaly of heart of fetus affecting , antepartum, single or unspecified fetus [facility] US COMPREHENSIVE SINGLE F/U Routine 07/31/2023 2:45 PM CDT Congenital heart defect ECHO COMPLETE Routine 07/14/2023 1 0:10 AM CDT Anomaly of heart of fetus affecting , antepartum, single or unspecified fetus [facility] COMPREHENSIVE SINGLE F/U Routine 06/29/2023 2:58 [...] LABORATORY - 09/01/2023 11:54 AM CDT The CepKymabid Xpert GBS LB Assay, performed on the Classana?? Instrument Systems, is a qualitative in vitro [...] settings. The device is not intended for fwkgq-vq-jxwr use. Gudelia WYATT LAB - MICRO GENE RAL ORDERABLES [facility]OR[facility] Inf. Diseases Diag. Lab [address] [facility], [address] [place] [address], [facility] * [facility] Comprehensive Single F/U (08/31/2023 2:52 PM CDT) [...] ? Study Date: ??08/31/2023 2:23pm Pat. NO: ??[id number] ?Referring ??: FRANCIA GILMAN Site: ? Education Department Registrar: Kassie [place] RDMS : ??2000 ?Age: ?? [...] ?oz Head / Face / Neck Biometry: Hunting Sales Leader ?4.8 ? mm CM ? 6.2 ? mm ANATOMY ----- The following structures appear abnormal: Heart / Thorax ?4-chamber view: coarctation of the aorta. LVOT view. 8-nnlzrz-xszybep view. The following structures appear normal: Head [...] ongoing recommendations. Continue weekly surveillance (scheduled with [facility]). She is scheduled for induction on 09/27. If you have questions regarding today's evaluation or if we can be of further service, please contact the Maternal- Medicine Center. anomalies may be present but not detected Procedure Note Hetal Parra MD - 09/01/2023 Comp Follow Up ----- Pat. Name: ROSEMARY NARAYAN Study Date: 08/31/2023 2:23pm Pat. NO: [id number] Referring MD: FRANCIA GILMAN Site: Education Department Registrar: Kassie [place] RDMS : 2000 Age: 23 [...] 12oz Head / Face / Neck Biometry: Hunting Sales Leader 4.8mm CM 6.2mm ANATOMY ----- The following structures appear abnormal: Heart / Thorax 4-chamber view: coarctation of theaorta. LVOT view. 1-zwttjo-vzfdohx view. The following structures appear normal: Head [...] with our office. Please see documentation in [facility] for full details from today's visit [...] The BPP was 8/8. Jair Sanchez MD [facility] US ORDERABL ES * [facility] BPP Single (08/19/2023 12:31 PM CDT) Anatomical Region Laterality Modality Ultrasound 08/19/2023 12:1 1 PM CDT Impressions 08/19/2023 4:47 PM CDT IMPRESSION ----- 1) Law intrauterine at 33w 5d gestational age. 2) The BPP is reassuring. 3) The amniotic fluid volume appeared normal. Narrative 08/19/2023 4:47 PM CDT ?BPP ----- Pat. Name: ROSEMARY NARAYAN ? Study Date: ??08/19/2023 12:11pm Pat. NO: ??[id number] ?Referring ??MD: GUDELIA SAHNI Site: ??[facility] ? Education Department Registrar: Molly Bernal RDMS : ??2000 ?Age: ?? [...] NARAYAN Study Date: 08/19/2023 12:11pm Pat. NO: [id number] Referring MD: GUDELIA SAHNI Site: [facility] Education Department Registrar: Molly Bernal RDMS : 2000 Age: 22 [...] amniotic fluid volume appeared normal. Jair [facility] US ORDERABL ES * ECHO COMPLETE (08/19/2023 11:23 AM CDT) Anatomical Region Laterality Modality Ultrasound 08/19/2023 10:5 5 AM CDT Narrative 08/20/2023 8:33 AM CDT [id number]^HORACIO^CARLOS ALBERTO ? Study ID: [id number] ?[facility] ?[facility] ?[address] [place] [address] ?[place] [address] ? Echocardiogram Name: ROSEMARY NARAYAN Study Date: 08/19/2023 10:55 AM ?Patient Location: [facility] Gender: Female ? Patient Class: Outpatient : 2000 ?Age: 22 yrs Ordering Provider: CARLOS ALBERTO LEONARD Referring Provider: FRANCIA GILMAN Performed By: Fabiola Sahni Physician: Yonatan Black MD Reason For Study: Anomaly of heart of fetus affecting , antepartum, singl Data: Number of fetuses: This is a law gestation. Due date: 10/02/2023. Gestational age: 33w5d. Delivery at: [place]. Specific Indication: echocardiogram performed for suspected coarctation [...] to the patient. Delivery is recommended at [facility]. Cardiology consultation and echocardiogram is [...] to the left atrium. There is laminar bmsaf-bf-uovu shunting across the foramen ovale. Atrioventricular valves: [...] Procedure Note Yonatan Black MD - 08/20/2023 [id number]^ERLIN Study ID:[id number] [facility] [address] [address] Echocardiogram Name: ROSEMARY NARAYAN Study Date: 08/19/2023 10:55 AM Patient Location:[facility] Gender: Female Patient Class:Outpatient : 2000 Age: 22 yrs Ordering Provider: CARLOS ALBERTO LEONARD Referring Provider: FRANCAI GILMAN Performed By: Fabiola Sahni Physician: Yonatan Black MD Reason For Study: Anomaly of heart of fetus affecting ,antepartum, singl Data: Number of fetuses: This is a law gestation. Duedate: 10/02/2023. Gestational age: 33w5d. Delivery at: [place]. Specific Indication: echocardiogram performed for suspected coarctation [...] to the patient. Delivery is recommended at [facility]. Cardiology consultation and echocardiogram is [...] in to the left atrium. There is mlztdqmdwhan-gv-rwfm shunting across the foramen ovale. Atrioventricular valves: [...] AM CDT Narrative 07/14/2023 10:23 AM CDT [id number]^APONTE^YIFAN ? Study ID: [id number] ?[facility] ?[facility] ?[address] [place] [address] ?[place] [address] ? Echocardiogram Name: ROSEMARY NARAYAN Study Date: 07/14/2023 08:18 AM ? Patient Location: [facility] Gender: Female ?Patient Class: Outpatient : 2000 [...] blood. pressure gradient. Delivery is recommended at [facility]. Cardiology consultation and echocardiogram is [...] to the left atrium. There is laminar kqqpl-qq-jsqs shunting across the foramen ovale. Atrioventricular valves: [...] Note Carlos Alberto Leonard MD - 07/14/2023 [id number]^APONTE^YIFAN Study ID:[id number] [facility]'s [address] [address] Echocardiogram Name: ROSEMARY NARAYAN Study Date: 07/14/2023 08:18 AM Patient Location: [facility] Gender: Female Patient Class:Outpatient [...] limb blood. pressure gradient. Delivery is [facility]. Cardiology consultation and echocardiogram isrecommended immediately [...] in to the left atrium. There is piycgysyaltq-yr-tpbc shunting across the foramen ovale. Atrioventricular valves: [...] LES from Last 3 Months Care Teams Legal Contracts Specialist Relationship Specialty Start Date End Date No Ref-Primary, Physician PCP - General 05/08/23 Hetal Parra MD [address] [place] [address] Assigned OBGYN Provider 09/06/23
--- OUTSIDE RECORDS SUMMARY | 2023-09-11 07:12 | XMS_ITS | Encounter Summary ---
Author Organization [place] Address [address] [facility] [place] [address] Care Team Providers Care Supervisor Agricultural Education Name Role Phone No Ref-Primary, Physician Primary [...] Sue Sahni CNM [address] [facility] [address] [place] [address] Referral ID Status Reason Start Date Expiration Date V isits Requested Visits Authorized [id number] Pending Review 08/19/2023 08/18/2024 1 1 Encounter Details Date Type Department Care Team (Late st Contact Info) Description 08/31/2023 3:00 PM CDT Office Visit [facility] M[facility] Medicine [facility] [place] [address] [place], [place] [address] Hetal Parra MD [address] [place] [address] Sue Sahni CNM [address] [place] [address] Supervision of high risk in [...] for you. Talk to your doctor or chapter relations administrator about any concerns you have. You'll probably [...] Where can you learn more? Go to https://www.SlapVid.BuyMyHome/patiented Enter B912 in the search box to learn more about Weeks 34 to 36 of Your : Care Instructions. Current as of: September 22, 2022?Content Version: 14.0 ?? [employer]. Care instructions adapted under license by your healthcare professional. If you have questions about a medical condition or this instruction, always ask your healthcare professional. [employer] disclaims any warranty or liability for your [...] Where can you learn more? Go to https://www.SlapVid.net/patiented Enter M001 in the search box to learn more about Group B Strep During : Care Instructions. Current as of: August 25, 2022?Content Version: 14.0 ?? [employer]. Care instructions adapted under license by your healthcare professional. If you have questions about a medical condition or this instruction, always ask your healthcare professional. [employer] disclaims any warranty or liability for your [...] risks and benefits. Ask your doctor or nurse-chapter relations administrator: Why do I need to be induced? What are the risks to my baby? How will you start my labor? How will you know if my baby is ready to be born? How will you know if my body is ready to give ? Where can I get more information? To learn more about induction, you may visit these websites: The [employer]: www.mymidwife.org The [employer]stetricians and Gynecologists: www.acog.org Childbirth Connection: www.childbirthconnection.org May Dim: www.mayScan.eClinic Healthcare Association of Women's Health, Obstetrics, and Nursing www.fryunn2icz.org/tc-yvh-scbp-40/ For informational purposes only. Not to replace the advice of your health care provider. Copyright ?? 2007 [facility]. All rights reserved. Clinically reviewed by the System Operations Leadership team. Tails.com 022883 - REV 06/04. * Attachments The following attachments cannot be sent through Care Everywhere. * : High Blood Pressure (Kazakh) documented in this encounter Progress Notes * [...] and OB visits with her doctor in [place] and she prefers to follow with them and return to [place] for her induction. OB Hx: OB History [...] the patient. Delivery is recommended at [facility]. Cardiology consultation and echocardiogram is recommended [...] - Weekly BPPs to be shared between [facility] and local OB clinic. Delivery planning: - [...] concerns. Patient reports she was seen in [place] last Sunday 08/27 for N/V and dizziness. She states she was given IV fluids, zofran, and an Rx for omeprazole. Ptdoing well today. Pt is scheduled for weekly BPP/OB visits in [place] on Fridays. Dr. Parra reviewed US. Sue [...] Info) Description 09/28/2023 7:30 AM CDT Appointment [facility] [address] [place] [phone] documented as of this encounter Procedures [...] Xpert GBS LB Assay, performed on the Revert.IO?? Instrument Systems, is a qualitative in vitro [...] settings. The device is not intended for xdrye-rz-rxqe use. Sue Sahni CNM LAB - MICRO GENE RAL ORDERABLES [facility] Inf. Diseases Diag. Lab [address] [facility] [place] [address] documented in this encounter Visit Diagnoses Diagnosis Supervision of high risk in third trimester- Primary Unspecified high-risk complicated by congenital heart disease, single or unspecified fetus documented in this encounter Additional Health Concerns Assessment Noted Time PHQ-9 Depression Total Score: 0 08/19/19 24 12:54 PM CDT documented as of this encounter Care Teams Supervisor Agricultural Education Relationship Specialty Start Date End Date No Ref-Primary, Physician PCP - General 05/08/23 documented as of this encounter
--- OUTSIDE RECORDS SUMMARY | 2023-09-11 07:13 | XMS_ITS | Encounter Summary ---
Author Organization [place] Address [address] [facility] [place] [address] Care Team Providers Care Shotgun Shell Assembly Machine Adjuster Name Role Phone No Ref-Primary, Physician Primary Care Provider Reason for Referral * Diagnostic Imaging Ultrasound (Routine) - Pending Review Specialty Diagnoses / Procedures Referred By Contac t Referred To Contact Radiology. Diagnoses related condition, antepartum Procedures [facility] Jair Patel MD [address] [facility] [address] [address] Referral ID Status Reason Start Date Expiration Date V isits Requested Visits Authorized [id number] Pending Review 08/04/2023 08/03/2024 1 1 Reason for Visit * Diagnostic Imaging Ultrasound (Routine) - Pending Review Specialty Diagnoses / Procedures Referred By Contac t Referred To Contact Radiology. Diagnoses related condition, antepartum Procedures [facility] Jair Patel MD [address] [address] Referral ID Status Reason Start Date Expiration Date V isits Requested Visits Authorized [id number] Pending Review 08/04/2023 08/03/2024 1 1 Encounter Details Date Type Department Care Team (Latest Contact Info) Description 08/19/2023 11:45 AM CDT - 08/19/2023 11:59 PM CDT Hospital Encounter [facility] Maternal Medicine [facility] [address] [place] [address] Leyda Guzman MD [address] [place] [address] related condition, antepartum Discharge Disposition: [...] Info) Description 09/28/2023 7:30 AM CDT Appointment [facility] [address] [place] [phone] documented as of this encounter Procedures Procedure Name Priority Date/Time Associated Diagnosis Comments [facility] BPP SINGLE Routine 08/19/2023 12:31 PM CDT related condition, antepartum documented in this encounter Results * [facility] BPP Single (08/19/2023 12:31 PM CDT) Anatomical Region Laterality Modality Ultrasound 08/19/2023 12:1 1 PM CDT Impressions 08/19/2023 4:47 PM CDT IMPRESSION ----- 1) E[place]ada intrauterine at 33w 5d gestational age. 2) The BPP is reassuring. 3) The amniotic fluid volume appeared normal. Narrative 08/19/2023 4:47 PM CDT ?BPP ----- Pat. Name: RA NARAYAN ? Study Date: ??08/19/2023 12:11pm Pat. NO: ??[id number] ?Referring ??MD: GUDELIA BARILLAS Site: ??[facility] ? Crew Boss: Molly Bernal RDMS : ??2000 ?Age: ?? [...] NARAYAN Study Date: 08/19/2023 12:11pm Pat. NO: [id number] Referring MD: GUDELIA BARILLAS Site: [facility] Crew Boss: Molly Bernal RDMS : 2000 Age: 22 [...] fluid volume appeared normal. Jair Sanchez MD [facility] ORDERABL ES documented in this encounter Visit Diagnoses Diagnosis related condition, antepartum documented in this encounter Additional Health Concerns Assessment Noted Time PHQ-9 Depression Total Score: 0 08/19/19 24 12:54 PM CDT documented as of this encounter Care Teams Shotgun Shell Assembly Machine Adjuster Relationship Specialty Start Date End Date No Ref-Primary, Physician PCP - General 05/08/23 documented as of this encounter
--- OUTSIDE RECORDS SUMMARY | 2023-09-11 07:13 | XMS_ITS | Encounter Summary ---
Author Organization [place] Address [address] [place] [address] Care Team Providers Care Church Secretary Name Role Phone No Ref-Primary, Physician [...] 7:30 AM CDT Appointment [facility] [address] [place] [address] documented as of this encounter Visit Diagnoses Not on filedocumented in this encounter Care Teams Church Secretary Relationship Specialty Start Date End Date No Ref-Primary, Physician PCP - General 05/08/23 documented as of this encounter
--- OUTSIDE RECORDS SUMMARY | 2023-09-11 07:13 | XMS_ITS | Encounter Summary ---
Author Organization [place] Address [address] [place] [address] Care Team Providers Care Corpsman Name Role Phone No Ref-Primary, Physician Primary Care Provider Reason for Referral * (Routine) - Closed Specialty Diagnoses / Procedures Referred By Sadeac t Referred To Contact Cardiology Diagnoses Anomaly of heart of fetus affecting , antepartum, single or unspecified fetus Procedures Echo (TTE) Complete Amor Leonard MD [address] [place] [address] [facility] [address] [place] [phone] Referral ID Status Reason Start Date Expiration Date Visits Re quested Visits Authorized [id number] Closed 08/19/2023 08/18/2024 1 1 Reason for Visit * (Routine) - Closed Specialty Diagnoses / Procedures Referred By Contac t Referred To Contact Cardiology Diagnoses Anomaly of heart of fetus affecting , antepartum, single or unspecified fetus Procedures Echo (TTE) Amor Anderson MD [address] [place] [address] [facility] [address] [place] [phone] Referral ID Status Reason Start Date Expiration Date Visits Re quested Visits Authorized [id number] Closed 08/19/2023 08/18/2024 1 1 Encounter Details Date Type Department Care Team (Latest Contact Info) Description 08/19/2023 9:25 AM CDT - 08/19/2023 11:44 AM CDT Hospital Encounter [facility] [address] [place] [phone] Leyda Guzman MD [address] [facility] [address] [place] [address] Urmfmusfet Anomaly of heart of [...] Description 09/28/2023 7:30 AM CDT Appointment [facility] [address] [place] [address] documented as of this encounter Procedures Procedure Name Priority Date/Time Associated Diagnosis Comments ECHO COMPLETE Routine 08/19/2023 1 1:23 AM CDT Anomaly of heart of fetus affecting , antepartum, single or unspecified fetus documented in this encounter Results * ECHO COMPLETE (08/19/2023 11:23 AM CDT) Anatomical Region Laterality Modality Ultrasound 08/19/2023 10:5 5 AM CDT Narrative 08/20/2023 8:33 AM CDT [id number]^LEONARD^KAVISHA ? Study ID: [id number] ?[facility] ?[employer] ?[address] ?[place] [address] ? Echocardiogram Name: RA NARAYAN Study Date: [...] date: 10/02/2023. Gestational age: 33w5d. Delivery at: [place]. Specific Indication: echocardiogram performed for suspected coarctation [...] to the patient. Delivery is recommended at [facility]. Cardiology consultation and echocardiogram is recommended [...] to the left atrium. There is laminar lxziw-qy-agsp shunting across the foramen ovale. Atrioventricular valves: [...] Procedure Note Yonatan Black MD - 08/20/2023 [id number]^HORACIO^AMOR Study ID:[id number] [facility] [place] [address] Echocardiogram Name: GRZEGORZ AN, RA L Study Date: 08/19/2023 10:55 AM Patient Location:[facility] Gender: Female Patient Class:Outpatient : [id number] Age: 22 yrs Ordering Provider: AMOR LEONARD Referring Provider: FRANCIA GILMAN Performed By: Fabiola Sahni Physician: Yonatan Black MD Reason For Study: Anomaly of heart of fetus affecting ,antepartum, singl Data: Number of fetuses: This is a law gestation. Duedate: 10/02/2023. Gestational age: 33w5d. Delivery at: [place]. Specific Indication: echocardiogram performed for suspected coarctation [...] to the patient. Delivery is recommended at [facility]. Cardiology consultation and echocardiogram is recommended [...] in to the left atrium. There is udqlzibnhyvb-oj-hhgh shunting across the foramen ovale. Atrioventricular valves: [...] documented as of this encounter Care Teams Corpsman Relationship Specialty Start Date End Date No Ref-Primary, Physician PCP - General 05/08/23 documented as of this encounter
--- OUTSIDE RECORDS SUMMARY | 2023-09-11 07:13 | XMS_ITS | Encounter Summary ---
Author Organization [place] Address [address] [place] [address]. [place] [address] Care Team Providers Care Director Integrated Name Role Phone No Ref-Primary, Physician Primary Care Provider Hetal Parra MD Unavailable [phone] Encounter Details Date Type Department Care Team (Late st Contact Info) Description 08/17/2023 MyC Medical Advice [facility] [address] [place] [address] Clinic [address] [place] [address] Soumya Rodriguez LPN Social History [...] Info) Description 09/28/2023 7:30 AM CDT Appointment [facility] [address] [place] [phone] documented as of this encounter Visit Diagnoses Not on filedocumented in this encounter Care Teams Director Integrated Relationship Specialty Start Date End Date No Ref-Primary, Physician PCP - General 05/08/23 Hetal Parra MD [address] [facility] [address] [place] [address] Assigned OBGYN Provider 09/06/23 documented as of this encounter
--- OUTSIDE RECORDS SUMMARY | 2023-09-11 07:13 | XMS_ITS | Encounter Summary ---
Author Organization [place] Address [address] [facility] [place] [address] Care Team Providers Care Cosmetology Instructor Name Role Phone No Ref-Primary, Physician Primary Care Provider Reason for Visit * Reason Comments Ultrasound BPP: CHD Encounter Details Date Type Department Care Team (Late st Contact Info) Description 08/19/2023 12:15 PM CDT Office Visit [facility] [place] [address] [place], [place] [phone] Leyda Guzman MD [address] [place] [address] [place] [address] complicated by congenital heart disease, [...] 09/28/2023 7:30 AM CDT Appointment Eldon Starr [facility] [address] [facility] [place] [address] documented as of this encounter Visit Diagnoses Diagnosis complicated by congenital heart disease, single or unspecified fetus- Primary documented in this encounter Additional Health Concerns Assessment Noted Time PHQ-9 Depression Total Score: 0 08/19/19 12:54 PM CDT documented as of this encounter Care Teams Cosmetology Instructor Relationship Specialty Start Date End Date No Ref-Primary, Physician PCP - General 05/08/23 documented as of this encounter
--- OUTSIDE RECORDS SUMMARY | 2023-09-11 07:13 | XMS_ITS | Encounter Summary ---
Author Organization [place] Address [address] [facility] [place] [address] Care Team Providers Care Electrical Designer Drafter Name Role Phone No Ref-Primary, Physician Primary Care Provider Reason for Referral * Diagnostic Imaging Ultrasound (Routine) - Pending Review Specialty Diagnoses / Procedures Referred By Contac t Referred To Contact Radiology. Diagnoses Congenital heart defect Procedures [facility] Comprehensive Single F/U Swati Hurst MD [address] [place], [place] [address] Referral ID Status Reason Start Date Expiration Date V isits Requested Visits Authorized [id number] Pending Review 06/29/2023 06/28/2024 1 1 Reason for Visit * Diagnostic Imaging Ultrasound (Routine) - Pending Review Specialty Diagnoses / Procedures Referred By Contac t Referred To Contact Radiology. Diagnoses Congenital heart defect Procedures [facility] Comprehensive Single F/U Swati Hurst MD [address] [place], [place] [address] [address] [address] Referral ID Status Reason Start Date Expiration Date V isits Requested Visits Authorized [id number] Pending Review 06/29/2023 06/28/2024 1 1 Encounter Details Date Type Department Care Team (Latest Contact Info) Description 07/31/2023 2:08 PM CDT - 07/31/2023 11:59 PM CDT Hospital Encounter [facility] [place] [address] [facility] [address] [place] [address] Jair Sanchez MD [address] [place] [address] [place] [address] Congenital heart defect Discharge Disposition: [...] 7:30 AM CDT Appointment [facility] [address] [place] [phone] documented as of this encounter Procedures Procedure Name Priority Date/Time Associated Diagnosis Comments [facility] COMPREHENSIVE SINGLE F/U Routine 07/31/2023 2:45 PM CDT Congenital heart defect documented in this encounter Results * [facility] Comprehensive Single F/U (07/31/2023 2:45 PM CDT) [...] ? Study Date: ??07/31/2023 2:19pm Pat. NO: ??[id number] ?Referring ??MD: FRANCIA GILMAN Site: ??[facility] ? Fitness Instructor: Justyna Calixto RDMS : ??2000 ?Age: ?? [...] lb 11 ? oz EFW by ?Hadlock ([id number]) Head / Face / Neck Biometry: Buying Intern ? 4.0 ? mm CM ?5.2 ? mm ANATOMY ----- The following structures appear abnormal: Heart / Thorax ?4-chamber view: See Echo report by [facility] Pediatric Cardiology from 05/20/2023. LVOT view. 3-vessel view. 4-hmespy-iylgvis view. The following structures appear normal: Head [...] RA Study Date: 07/31/2023 2:19pm Pat. NO: [id number] Referring MD: FRANCIA GILMAN Site: [facility] Fitness Instructor: Justyna Calixto RDMS : 2000 Age: 22 [...] 3 lb 11 oz EFW by [employer] ([id number]) Head / Face / Neck Biometry: Buying Intern 4.0 mm CM 5.2 mm ANATOMY ----- The following structures appear abnormal: Heart / Thorax 4-chamber view: See Echo reportby [facility] Pediatric Cardiology from 05/20/2023. LVOT view. 3-vessel view.2-clqsok-emhcqcd view. The following structures appear normal: Head [...] We will plan to reassess growth at [facility] in 4weeks. Return to primary provider [...] volume appeared normal. Swati Hurst MD G [facility] US ORDERABLE S documented in this encounter Visit Diagnoses Diagnosis Congenital heart defect Unspecified congenital anomaly of heart documented in this encounter Care Teams Electrical Designer Drafter Relationship Specialty Start Date End Date No Ref-Primary, Physician PCP - General 05/08/23 documented as of this encounter
--- OUTSIDE RECORDS SUMMARY | 2023-09-11 07:13 | XMS_ITS | Encounter Summary ---
Author Organization [place] Address [address] [place] [address]. [place] [address] Care Team Providers Care Rush Seater Name Role Phone No Ref-Primary, Physician Primary Care Provider Hetal Parra MD Unavailable [phone] Encounter Details Date Type Department Care Team (Late st Contact Info) Description 05/21/2023 MyC Medical Advice [facility] [address] [place] [address] Clinic [address] [place] [address] Kym Little, RN Social History [...] Description 09/28/2023 7:[address] [facility] [address] [place] [phone] documented as of this encounter Visit Diagnoses Not on filedocumented in this encounter Care Teams Rush Seater Relationship Specialty Start Date End Date No Ref-Primary, Physician PCP - General 05/08/23 Hetal Parra MD [address] [place] [address] [place] [address] Assigned OBGYN Provider 09/06/23 documented as of this encounter
--- OUTSIDE RECORDS SUMMARY | 2023-09-11 07:13 | XMS_ITS | Encounter Summary ---
Author Organization [place] Address [address] [facility] [place] [address] Care Team Providers Care Credit Processor Name Role Phone No Ref-Primary, Physician Primary Care Provider Reason for Visit * Reason Comments Consult NICU consult: CHD * Consultation (Routine: Next available opening) - Pending Review Specialty Diagnoses / Procedures Referred By Contac t Referred To Contact Diagnoses related condition, antepartum Jair Sanchez MD [address] [address] Referral ID Status Reason Start Date Expiration Date V isits Requested Visits Authorized [id number] Pending Review 08/04/2023 08/03/2024 2 2 Encounter Details Date Type Department Care Team (Late st Contact Info) Description 08/19/2023 10:00 AM CDT Office Visit [facility] [place] [address] [place] [phone] Sue Sahni CNM [address] [facility] [address] [place] [address] related condition, antepartum Social History [...] Osborne and her partner, Aries, in the [facility] clinic at the [facility] for consultation at the request of [...] Ms. Rosemary Osborne in the NICU at [facility]. Please reach out if there are questions [...] Info) Description 09/28/2023 7:30 AM CDT Appointment [facility] [address] [place], [place] [address] documented as of this encounter Visit Diagnoses Diagnosis related condition, antepartum documented in this encounter Additional Health Concerns Assessment Noted Time PHQ-9 Depression Total Score: 0 08/19/19 24 12:54 PM CDT documented as of this encounter Care Teams Credit Processor Relationship Specialty Start Date End Date No Ref-Primary, Physician PCP - General 05/08/23 documented as of this encounter
--- OUTSIDE RECORDS SUMMARY | 2023-09-11 07:13 | XMS_ITS | Encounter Summary ---
Author Organization [place] Address [address] [facility] [place] [address] Care Team Providers Care Childcare Worker Name Role Phone No Ref-Primary, Physician Primary Care Provider Reason for Referral * Consultation (Routine: Next available opening) - Pending Review Specialty Diagnoses / Procedures Referred By Adonis t Referred To Contact Diagnoses related condition, antepartum Jair Sanchez MD [address] [address] Referral ID Status Reason Start Date Expiration Date V isits Requested Visits Authorized [id number] Pending Review 08/04/2023 08/03/2024 2 2 Question Answer OB Visit? Yes Is this a first time OB patient? Yes NICU Consult Yes Comments OBV and NICU consult 08/18 * Diagnostic Imaging Ultrasound (Routine) - Pending Review Specialty Diagnoses / Procedures Referred By Contac t Referred To Contact Radiology. Diagnoses related condition, antepartum Procedures M BPP Single Jair Sanchez MD [address] [place] [address] [place] [address] Referral ID Status Reason Start Date Expiration Date V isits Requested Visits Authorized [id number] Pending Review 08/04/2023 08/03/2024 1 1 Encounter Details Date Type Department Care Team (Late st Contact Info) Description 08/04/2023 Orders Only [facility] [place] [address] [place] [address] Shaunna Nolasco RN related condition, antepartum (Primary [...] Description 09/28/2023 7:30 AM CDT Appointment [facility] [address] [place] [phone] Scheduled Referrals Name Type Priority Associated Diagnoses Orde r Schedule [facility] Office Visit Referral Routine: Next available opening related condition, antepartum Weekly for 2 Occurrences starting 08/04/2023 until 08/03/2024 documented as of this encounter Results * [facility] BPP Single (08/19/2023 12:31 PM CDT) Anatomical Region Laterality Modality Ultrasound 08/19/2023 12:1 1 PM CDT Impressions 08/19/2023 4:47 PM CDT IMPRESSION ----- 1) Estrada intrauterine at 33w 5d gestational age. 2) The BPP is reassuring. 3) The amniotic fluid volume appeared normal. Narrative 08/19/2023 4:47 PM CDT ?BPP ----- Pat. Name: RA NARAYAN ? Study Date: ??08/19/2023 12:11pm Pat. NO: ??[id number] ?Referring ??MD: GUDELIA BARILLAS Site: ??[facility] ? Transcription Manager: Molly Bernal RDMS : ??2000 ?Age: [...] NARAYAN Study Date: 08/19/2023 12:11pm Pat. NO: [id number] Referring MD: GUDELIA BARILLAS Site: [facility] Transcription Manager: Molly Bernal RDMS : 2000 Age: [...] volume appeared normal. Jair Sanchez MD [facility] ORDERABL ES documented in this encounter Visit Diagnoses Diagnosis related condition, antepartum- Primary related condition, antepartum documented in this encounter Care Teams Childcare Worker Relationship Specialty Start Date End Date No Ref-Primary, Physician PCP - General 05/08/23 documented as of this encounter
--- OUTSIDE RECORDS SUMMARY | 2023-09-11 07:13 | XMS_ITS | Encounter Summary ---
Author Organization [place] Address [address] [facility] [place] [address] Care Team Providers Care General Practice Name Role Phone No Ref-Primary, Physician Primary [...] Info) Description 09/28/2023 7:30 AM CDT Appointment [facility] [address] [place] [address] documented as of this encounter Visit Diagnoses Not on filedocumented in this encounter Care Teams General Practice Relationship Specialty Start Date End Date No Ref-Primary, Physician PCP - General 05/08/23 documented as of this encounter
--- OUTSIDE RECORDS SUMMARY | 2023-09-11 07:13 | XMS_ITS | Encounter Summary ---
Author Organization [place] Address [address] [place] [address] Care Team Providers Care Hedge Fund Accountant Name Role Phone No Ref-Primary, Physician Primary Care Provider Reason for Referral * Diagnostic Imaging Ultrasound (Routine) - Pending Review Specialty Diagnoses / Procedures Referred By Contac t Referred To Contact Radiology. Diagnoses related condition, antepartum Procedures [facility] Comprehensive Single F/U Jair Sanchez MD [address] [facility] [address] [place] [address] Referral ID Status Reason Start Date Expiration Date V isits Requested Visits Authorized [id number] Pending Review 08/03/2023 08/02/2024 1 1 Encounter Details Date Type Department Care Team (Late st Contact Info) Description 08/03/2023 Orders Only [facility] [place] [address] [place] [address] Shaunna Nolasco RN related condition, antepartum (Primary [...] 09/28/2023 7:30 AM CDT Appointment Danita Starr [facility] [address] [place] [address] [place] [address] documented as of this encounter Results * [facility] Comprehensive Single F/U (08/31/2023 2:52 PM [...] ? Study Date: ??08/31/2023 2:23pm Pat. NO: ??[id number] ?Referring ??: FRANCIA GILMAN Site: ? Information Systems Security Manager: Kassie [place] RDMS : ??2000 ?Age: [...] ?oz Head / Face / Neck Biometry: Dredge Master ?4.8 ? mm CM ? 6.2 ? mm ANATOMY ----- The following structures appear abnormal: Heart / Thorax ?4-chamber view: coarctation of the aorta. LVOT view. 6-fdzdiu-qwnlssg view. The following structures appear normal: Head [...] ongoing recommendations. Continue weekly surveillance (scheduled with [facility]). She is scheduled for induction on 09/27. If you have questions regarding today's evaluation or if we can be of further service, please contact the [facility]. anomalies may be present but not detected Procedure Note Hetal Parra MD - 09/01/2023 Comp Follow Up ----- Pat. Name: GRZEGORZ FERREIRAJAS RA Study Date: 08/31/2023 2:23pm Pat. NO: [id number] Referring MD: FRANCIA GILMAN Site: [employer] Security Manager: Kassie [place] RDMS : 2000 Age: [...] 12oz Head / Face / Neck Biometry: Dredge Master 4.8mm CM 6.2mm ANATOMY ----- The following structures appear abnormal: Heart / Thorax 4-chamber view: coarctation of theaorta. LVOT view. 5-abcxrw-sgoulsa view. The following structures appear normal: Head [...] andongoing recommendations. Continue weekly surveillance (scheduled with Boisse[facility]ain). She isscheduled for induction on 09/27. If [...] The BPP was 10/21. Jair Sanchez MD [facility] ORDERABL ES documented in this encounter Visit Diagnoses Diagnosis related condition, antepartum- Primary related condition, antepartum documented in this encounter Care Teams Hedge Fund Accountant Relationship Specialty Start Date End Date No Ref-Primary, Physician PCP - General 05/08/23 documented as of this encounter
--- OUTSIDE RECORDS SUMMARY | 2023-09-11 07:13 | XMS_ITS | Encounter Summary ---
Author Organization [place] Address [address] [facility] [address] Care Team Providers Care Marine Engine Mechanic Name Role Phone No Ref-Primary, Physician Primary [...] Info) Description 09/28/2023 7:30 AM CDT Appointment [facility]place [address] [place] [address] documented as of this encounter Visit Diagnoses Not on filedocumented in this encounter Care Teams Marine Engine Mechanic Relationship Specialty Start Date End Date No Ref-Primary, Physician PCP - General 05/08/23 documented as of this encounter
--- OUTSIDE RECORDS SUMMARY | 2023-09-11 07:13 | XMS_ITS | Clinical Summary ---
Author Organization [facility] Address [place], [place] [address] Care Team Providers Care Supervisor Grove Name Role Phone Anitha Ojeda DO Primary Care Provider [phone] Allergies Active Allergy Reactions Criticality Noted Date Comments [place] Shortness Of Breath,Rash 01/03/2020 Medications Medication Sig [...] Comments Blood Pressure 121/78 02/18/2022 9:36 AM TEMPLER HEAD Pulse 70 02/18/2022 9:36 AM TEMPLER HEAD Temperature 37.1 ??C (98.8 ??F) 09/30/2021 1:43 PM CD T Respiratory Rate 14 12/21/2020 8:12 AM CDT Oxygen Saturation 99% 02/18/2022 9:36 AM TEMPLER HEAD Inhaled Oxygen Concentration - - Weight 82.6 kg (182 lb) 02/18/2022 9:36 AM TEMPLER HEAD Height 157 cm (5' 1.81) 07/11/2021 8:31 [...] CHLAMYDIA TRACH PROBE Routine 05/20/2021 3:33 PM TEMPLER HEAD Routine screening for STI (sexually transmitted infection) ANTI HIV 1/2 Routine 06/29/2020 3:20 PM CDT Leukocytosis, unspecified type Thrombocytosis (HC) from Last 3 Months or Most Recently Relevant to Health Maintenance Results * HPV HIGH RISK (09/12/2022 3:00 PM CDT) TYPE 16 Negative Negative 09/23/2022 5:00 PM CDT [facility] TYPE 18 Negative Negative 09/23/2022 5:00 PM CDT [facility] OTHER HIGH RISK TYPES Negative Negative 09/23/2022 5:00 PM CDT [facility] Other (Other) 09/12/2022 3:0 0 PM CDT 09/17/2022 12:19 PM CDT Narrative [facility] - 09/23/2022 5:00 PM CDT HPV types 16, 18, 31, 33, 35, 39, 45, 51, 52, 56, 58, 59, 66 and 68 DNA were undetectable or below the pre-set threshold. Methodology: Michelle Adela 4800 HPV Test Alley Johnson MD MICROBIOLO GY [facility] [address] [place] [address], [place] * GC CHLAMYDIA TRACH PROBE (05/20/2021 3:33 PM TEMPLER HEAD) CHLAMYDIA PROBE Negative 4:11 AM TEMPLER HEAD [facility] N GONORRHOEAE PROBE Negative 05/21/2021 4:11 AM TEMPLER HEAD [facility] Other URINE SPECIMEN / Unknown Non-Blood / Unknown 05/20/2021 3:33 PM TEMPLER HEAD 05/20/2021 3:34 PM TEMPLER HEAD Madina Goetz MD MICROBIOLOG Y [facility] [address] [place] [address], * ANTI HIV 1/2 (06/29/2020 3:20 PM CDT) Pathologist [facility] HIV-1/HIV-2 ANTIBODY Non-Reacti ve Non-Reacti ve 06/29/2020 9:14 PM CDT [facility] Comment:HIV-1 p24 and HIV-1/ HIV-2 Ab not detected. Blood BLOOD SPECIMEN / Unknown Venipuncture / Unknown 06/29/2020 3:20 PM CDT 06/29/2020 3:20 PM CDT Anitha Ojeda DO SEND OUTS Performing Organization Address [facility]/ZIP Co de Phone Number [facility] [address] [place] [address], from Last 3 Months or Most Recently Relevant to Health Maintenance Care Teams Supervisor Grove Relationship Specialty Start Date End Date Anitha Ojeda DO [facility] [place] [address] PCP - General Family Practice 07/05/20
--- OUTSIDE RECORDS SUMMARY | 2023-09-11 07:13 | XMS_ITS | Encounter Summary ---
Author Organization [place] Address [address] [facility] [place] [address] Care Team Providers Care Miller Head Wet Process Name Role Phone No Ref-Primary, Physician Primary Care Provider Reason for Referral * Diagnostic Imaging Ultrasound (Routine) - Pending Review Specialty Diagnoses / Procedures Referred By Contac t Referred To Contact Radiology. Diagnoses Congenital heart defect Procedures [facility] US Comprehensive Single F/U Swati Hurst MD [address] [place] [address] Referral ID Status Reason Start Date Expiration Date V isits Requested Visits Authorized [id number] Pending Review 06/29/2023 06/28/2024 1 1 Reason for Visit * Reason Comments Ultrasound RL2-CHD Encounter Details Date Type Department Care Team (Late st Contact Info) Description 06/29/2023 2:45 PM CDT Office Visit [facility] [place] [address] [facility] [address] [place] [address] Swati Hurst MD [address] [place] [address] Congenital heart defect (Primary Dx) [...] 06/29/2023 2:45 PM CDT Patient presents to [facility] for RL2 at 26w3d due to CHD. Positive movement. Denies LOF, vaginal bleeding or cramping/contractions. SBAR given to [facility] , see their note in Epic. documented in this encounter Plan of Treatment Upcoming Encounters Date Type Department Care Team (Late st Contact Info) Description 09/28/2023 7:30 AM CDT Appointment [facility] [address] [place] [phone] documented as of this encounter Results * [facility] US Comprehensive Single F/U (07/31/2023 2:45 [...] ? Study Date: ??07/31/2023 2:19pm Pat. NO: ??[id number] ?Referring ??MD: FRANCIA GILMAN Site: [facility] ? Animal Pathology Teacher: Justyna Calixto RDMS : ??2000 ?Age: ?? [...] lb 11 ? oz EFW by ?Hadlock ([id number]) Head / Face / Neck Biometry: Inward Toll Operator ? 4.0 ? mm CM ?5.2 ? mm ANATOMY ----- The following structures appear abnormal: Heart / Thorax ?4-chamber view: See Echo report by [facility] from 05/20/2023. LVOT view. 3-vessel view. 4-imntrn-ywrzayq view. The following structures appear normal: Head [...] We will plan to reassess growth at [facility] in 4 weeks. Return to primary [...] NARAYAN Study Date: 07/31/2023 2:19pm Pat. NO: [id number] Referring MD: FRANCIA GILMAN Site: [facility] Animal Pathology Teacher: Justyna Calixto RDMS : 2000 Age: 22 [...] 3 lb 11 oz EFW by Hadlock ([id number]) Head / Face / Neck Biometry: Inward Toll Operator 4.0 mm CM 5.2 mm ANATOMY ----- The following structures appear abnormal: Heart / Thorax 4-chamber view: See Echo reportby [facility] from 05/20/2023. LVOT view. 3-vessel view.0-jxqoce-prxebxb view. The following structures appear normal: Head [...] We will plan to reassess growth at [facility] in 4weeks. Return to primary provider [...] fluid volume appeared normal. Swati Hurst MD [facility] US ORDERABLE S documented in this encounter Visit Diagnoses Diagnosis Congenital heart defect- Primary Unspecified congenital anomaly of heart Congenital heart defect Unspecified congenital anomaly of heart documented in this encounter Care Teams Miller Head Wet Process Relationship Specialty Start Date End Date No Ref-Primary, Physician PCP - General 05/08/23 documented as of this encounter
--- OUTSIDE RECORDS SUMMARY | 2023-09-11 07:13 | XMS_ITS | Encounter Summary ---
Author Organization [place] Address [address] [facility] [place] [address] Care Team Providers Care Foxing Closer Name Role Phone No Ref-Primary, Physician Primary Care Provider Reason for Referral * Consultation (Routine: Next available opening) - Pending Review Specialty Diagnoses / Procedures Referred By Contmaile t Referred To Contact Diagnoses Abnormal ultrasound Swati Hurst MD [address] [facility] [address] [place] [address] Referral ID Status Reason Start Date Expiration Date V isits Requested Visits Authorized [id number] Pending Review 08/04/2023 08/03/2024 1 1 Encounter Details Date Type Department Care Team (Late st Contact Info) Description 08/04/2023 Orders Only [facility] [place] [address] [place] [phone] Louise Haley GC [address] [place], [place] [phone] Abnormal ultrasound (Primary Dx) Social History Tobacco [...] genetic counseling to be added at upcoming [facility] appointment to review recommendation with patient. Louise Haley MS, [facility] Licensed Genetic Counselor [email or web address] documented in this encounter Plan of Treatment Upcoming Encounters Date Type Department Care Team (Late st Contact Info) Description 09/28/2023 7:30 AM CDT Appointment [facility] [address] [place] [phone] Scheduled Referrals Name Type Priority Associated Diagnoses Orde r Schedule [facility] Genetic Counseling Referral Routine: Next available opening Abnormal ultrasound Expected: 08/04/2023 (Approximate), Expires: 08/03/2024 documented as of this encounter Visit Diagnoses Diagnosis Abnormal ultrasound- Primary Abnormal findings on screening documented in this encounter Care Teams Foxing Closer Relationship Specialty Start Date End Date No Ref-Primary, Physician PCP - General 05/08/23 documented as of this encounter
--- OUTSIDE RECORDS SUMMARY | 2023-09-11 07:13 | XMS_ITS | Encounter Summary ---
Author Organization [place] Address [address] [facility] [place] [address] Care Team Providers Care Glass Mould Cleaner Name Role Phone No Ref-Primary, Physician Primary Care Provider Reason for Visit * Reason Onset Date Comments Appointment 08/04/2023 Encounter Details Date Type Department Care Team (Late st Contact Info) Description 08/04/2023 Telephone [facility] M[facility] Medicine [facility] [place] [address] [place] [address] Shaunna Nolasco, RN Appointment Social History Tobacco [...] Phone call to Rosemary to discuss upcoming [facility] appointments and echo. Pt agreed to come to [place] for multiple appointments on 08/18. Plan: Pt will have weekly BPP starting at 32 weeks. These will be done in [place] unless patient is coming to [facility]. Serial growth q 4 weeks. Pt will come to [facility] on 08/18 for NICU consult, ob visit, echo, BPP. Will discuss delivery date and further planning at this visit. Shaunna Nolasco RN documented in this encounter Plan of Treatment Upcoming Encounters Date Type Department Care Team (Late st Contact Info) Description 09/28/2023 7:30 AM CDT Appointment [facility] [address] [place] [address] [place] [phone] documented as of this encounter Visit Diagnoses Not on filedocumented in this encounter Care Teams Glass Mould Cleaner Relationship Specialty Start Date End Date No Ref-Primary, Physician PCP - General 05/08/23 documented as of this encounter
--- OUTSIDE RECORDS SUMMARY | 2023-09-11 07:13 | XMS_ITS | Encounter Summary ---
Author Organization [place] Address [facility] [place] [address] Care Team Providers Care Associate Property Manager Name Role Phone No Ref-Primary, Physician Primary Care Provider Reason for Visit * Reason Onset Date Comments Appointment 08/03/2023 Encounter Details Date Type Department Care Team (Late st Contact Info) Description 08/03/2023 Telephone [facility] M[facility] Medicine [facility] [place] [address] [facility] [place] [address] Shaunna Nolasco, RN Appointment Social History Tobacco [...] appointments, weekly BPP, visits, and delivery at [facility]. Offered patient to move echo from 08/10 to 08/11 to coordinate a BPP and visit with MFM coordinator at [place]. Pt will call back after checking with her spouse. Shaunna Nolasco RN documented in this encounter Plan of Treatment Upcoming Encounters Date Type Department Care Team (Late st Contact Info) Description 09/28/2023 7:30 AM CDT Appointment Eldon Starr [facility]place [address] [facility] [place] [phone] documented as of this encounter Visit Diagnoses Not on filedocumented in this encounter Care Teams Associate Property Manager Relationship Specialty Start Date End Date No Ref-Primary, Physician PCP - General 05/08/23 documented as of this encounter
--- OUTSIDE RECORDS SUMMARY | 2023-09-11 07:13 | XMS_ITS | Encounter Summary ---
Author Organization [place] Address [address] [facility] [address] Care Team Providers Care Wood Carver Name Role Phone No Ref-Primary, Physician Primary Care Provider Reason for Referral * Diagnostic Imaging Ultrasound (Routine) - Pending Review Specialty Diagnoses / Procedures Referred By [facility] Referred To Contact Radiology. Diagnoses abnormality affecting management of mother, single or unspecified fetus Procedures [facility] US Comprehensive Single F/U Swati Hurst MD [address] [place] [address] Referral ID Status Reason Start Date Expiration Date V isits Requested Visits Authorized [id number] Pending Review 06/01/2023 05/31/2024 1 1 Reason for Visit * Diagnostic Imaging Ultrasound (Routine) - Pending Review Specialty Diagnoses / Procedures Referred By Contac Referred To Contact Radiology. Diagnoses abnormality affecting management of mother, single or unspecified fetus Procedures [facility] US Comprehensive Single F/U Swati Hurst MD [address] [facility] [address] [place] [address] Referral ID Status Reason Start Date Expiration Date V isits Requested Visits Authorized [id number] Pending Review 06/01/2023 05/31/2024 1 1 Encounter Details Date Type Department Care Team (Latest Contact Info) Description 06/29/2023 2:15 PM CDT - 06/29/2023 11:59 PM CDT Hospital Encounter [facility] Maternal Medicine Center [place] [address] [place] [address] Swati Hurst MD [address] [place] [address] [address] [place] [address] abnormality affecting management of mother, [...] CDT Appointment [facility] [address] [place] [phone] documented as of this encounter Procedures Procedure Name Priority Date/Time Associated Diagnosis Comments [facility] US COMPREHENSIVE SINGLE F/U Routine 06/29/2023 2:58 PM CDT abnormality affecting management of mother, single or unspecified fetus documented in this encounter Results * [facility] US Comprehensive Single F/U (06/29/2023 [...] ? Study Date: ??06/29/2023 2:20pm Pat. NO: ??[id number] ?Referring ??: FRANCIA GILMAN Site: ??[facility] ? Reservations And Ticketing Agent: Mumtaz Ventura RDMS : ??2000 ?Age: ?? [...] 2 lb 3 ?oz EFW by ?Hadlock ([id number]) Head / Face / Neck Biometry: Oncology Registrar ? 4.6 ? mm CM ?4.7 ? mm ANATOMY ----- The following structures appear abnormal: Heart / Thorax ?4-chamber view: left side of heart is smaller than the right. . 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 . 3-vessel view: small aorta. 2-qjeegv-nucpada view: small aorta . The following structures [...] on PGE. Plan for repeat assessment with [facility] of cardiac anatomy and growth in 4 weeks. She will likely need to delivery at [place], however, will plan to reevaluate following her [...] the patient (reviewing medical records/tests), in direct xwzn-co-zflr contact with the patient during her visit with the majority spent counseling and discussing the plan of care and documenting the visit in the electronic medical record. Please see note for details. Procedure Note Swati Hurst MD - 07/03/2023 Comp Follow Up ----- Pat. Name: RA NARAYAN Study Date: 06/29/2023 2:20pm Pat. NO: [id number] Referring MD: FRANCIA GILMAN Site: [facility] Reservations And Ticketing Agent: Mumtaz Ventura RDMS : 2000 Age: 22 [...] 2 lb 3 oz EFW by Hadlock ([id number]) Head / Face / Neck Biometry: Oncology Registrar 4.6 mm CM 4.7 mm ANATOMY ----- The following structures appear abnormal: Heart / Thorax 4-chamber view: left side of heart issmaller than the right. . LVOT view: mitral valve hypoplasia . Aortic archview: hypoplasia of aortic isthmus . 3-vessel view: small aorta.7-rneujn-amsbipc view: small aorta . The following structures [...] known cardiac [facility]. 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 Per cardiology, this anatomy may be dependenton PGE. Plan for repeat assessment with [facility] of cardiac anatomy and growth in4 weeks. She will likely need to delivery at [place], however, will planto reevaluate following her next [...] see the patient (reviewing medical records/tests), in ylswpgjbjd-kw-knsf contact with the patient during her visit [...] fluid volume appeared normal. Swati Hurst MD [facility] documented in this encounter Visit Diagnoses Diagnosis abnormality affecting management of mother, single or unspecified fetus documented in this encounter Care Teams Wood Carver Relationship Specialty Start Date End Date No Ref-Primary, Physician PCP - General 05/08/23 documented as of this encounter
--- OUTSIDE RECORDS SUMMARY | 2023-09-11 07:13 | XMS_ITS | Encounter Summary ---
Author Organization [place] Address [address] [facility] [place] [address] Care Team Providers Care First Helper Name Role Phone No Ref-Primary, Physician Primary Care Provider Reason for Visit * Reason Comments Ultrasound L2- CHD Encounter Details Date Type Department Care Team (Late st Contact Info) Description 07/31/2023 2:45 PM CDT Office Visit [facility] M[facility] Medicine [facility] [place] [address] [facility] [address] [place] [address] Jair Sanchez MD [address] [place] [address] complicated by congenital heart disease, [...] for details of today's US at the [facility]. Jair Sanchez MD Maternal- Medicine documented [...] Info) Description 09/28/2023 7:30 AM CDT Appointment [facility] [address] [place] [phone] documented as of this encounter Visit Diagnoses Diagnosis complicated by congenital heart disease, single or unspecified fetus- Primary documented in this encounter Care Teams First Helper Relationship Specialty Start Date End Date No Ref-Primary, Physician PCP - General 05/08/23 documented as of this encounter
--- OUTSIDE RECORDS SUMMARY | 2023-09-11 07:13 | XMS_ITS | Encounter Summary ---
Author Organization [place] Address [address] [place] [address]. [place] [address] Care Team Providers Care Underpresser Hand Name Role Phone No Ref-Primary, Physician Primary Care Provider Encounter Details Date Type Department Care Team (Late st Contact Info) Description 07/14/2023 Office Visit [facility] [address] [place] [phone] Carlos Alberto Ott MD [address] [place] [id number] cardiac disease affecting , single or unspecified [...] Ott MD - 07/14/2023 10:20 AM CDT [facility] Consult Note Patient: Rosemary Osborne Date of : 2000 Age: [age] year old Date of Visit: 07/14/2023 PCP: No Ref-Primary, Physician Dear Doctor, I had the pleasure of seeing Rosemary Osborne at the [facility] on 07/14/2023 infetal cardiology consultation for [...] today with Rosemary Osborne and her partner. merchant seaman was denied by patient. I discussed the cardiac anatomy, function,physiology, and plans for intervention following delivery. Based on today's echocardiogram, this will likely be a 2-ventricular repair with an arch repair. The left ventricle appears apex forming andmildly small due to the dilatation of the right ventricle in setting of a coarctation of the aorta.I recommended delivery at [facility], with plans for post- echocardiogram [...] care. I spent approximately 50 minutes in clws-bc-goxq time reviewing the above considerations. Carlos Alberto Ott M.D. Pediatric Cardiology [facility], 5th floor, [place] [address] documented in this encounter Plan of Treatment Upcoming Encounters Date Type Department Care Team (Late st Contact Info) Description 09/28/2023 7:30 AM CDT Appointment [facility] [address] [place], [place] [address] [phone] documented as of this encounter Visit Diagnoses Diagnosis cardiac disease affecting , single or unspecified fetus- Primary documented in this encounter Care Teams Underpresser Hand Relationship Specialty Start Date End Date No Ref-Primary, Physician PCP - General 05/08/23 documented as of this encounter
--- OUTSIDE RECORDS SUMMARY | 2023-09-11 07:13 | XMS_ITS | Encounter Summary ---
Author Organization [place] Address [address] [facility] [place] [address] Care Team Providers Care Structural Architect Name Role Phone No Ref-Primary, Physician Primary Care Provider Reason for Referral * Consultation (Routine: Next available opening) - Pending Review Specialty Diagnoses / Procedures Referred By Contac t Referred To Contact Diagnoses Supervision of high risk in third trimester complicated by congenital heart disease, single or unspecified fetus Sue Sahni CNM [address] [address] Referral ID Status Reason Start Date Expiration Date V isits Requested Visits Authorized [id number] Pending Review 08/19/2023 08/18/2024 1 1 Question Answer OB Visit? Yes Comments Ob visit Reason for Visit * Reason Comments Care Ob visit 33w5d; feta l CHD; coarctation of aorta * Consultation (Routine: Next available opening) - Pending Review Specialty Diagnoses / Procedures Referred By Contac t Referred To Contact Diagnoses related condition, antepartum Jair Sanchez MD [address] [facility] [address] [place] [address] Referral ID Status Reason Start Date Expiration Date V isits Requested Visits Authorized [id number] Pending Review 08/04/2023 08/03/2024 2 2 Encounter Details Date Type Department Care Team (Late st Contact Info) Description 08/19/2023 9:30 AM CDT Office Visit [facility] Maternal Medicine Center [place] [address] [place] [address] Sue Sahni CNM [address] [place] [address] Supervision of high risk in third trimester [...] Maternal Medicine OB Follow up visit. Rosemary Osboren : 2000 CC: OB Follow-up Subjective: Rosemary [...] Transfer of care: - Oriented patient to [facility] practice. Reviewed that [facility] is a multidisciplinary institution and her care will be collaborative in fashion with [facility] doctors, CNM, residents, fellows, and S clinic [...] - Weekly BPPs to be shared between [facility] and local OB clinic Delivery planning: - [...] in this encounter Nursing Notes * Shaunna oNlasco RN - 08/19/2023 9:30 AM CDT Rosemary [...] given and discussed. Plan weekly BPP in [place]. Pt will return to [facility] on 08/30 for RL2/BPP/Ob visit/GC. Pt discharged stableand ambulatory. Shaunna Nolasco RN documented in this encounter Plan of Treatment Upcoming Encounters Date Type Department Care Team (Late st Contact Info) Description 09/28/2023 7:30 AM CDT Appointment [facility] [address] [place] [phone] Scheduled Referrals Name Type Priority Associated Diagnoses Orde r Schedule [facility] Office Visit Referral Routine: Next available opening [...] documented as of this encounter Care Teams Structural Architect Relationship Specialty Start Date End Date No Ref-Primary, Physician PCP - General 05/08/23 documented as of this encounter
--- OUTSIDE RECORDS SUMMARY | 2023-09-11 07:13 | XMS_ITS | Encounter Summary ---
Author Organization [place] Address [address] [place] [id number] Care Team Providers Care Telephone Order Clerk Room Service Name Role Phone No Ref-Primary, Physician Primary Care Provider Reason for Referral * (Routine) - Closed Specialty Diagnoses / Procedures Referred By Contac t Referred To Contact Cardiology Diagnoses Anomaly of heart of fetus affecting , antepartum, single or unspecified fetus Procedures Echo (TTE) Complete Yifan Clancy MD [address] [place] [address] [facility] [address] [place] [phone] Referral ID Status Reason Start Date Expiration Date Visits Re quested Visits Authorized [id number] Closed 07/14/2023 07/06/2024 1 1 Reason for Visit * (Routine) - Closed Specialty Diagnoses / Procedures Referred By Contac t Referred To Contact Cardiology Diagnoses Anomaly of heart of fetus affecting , antepartum, single or unspecified fetus Procedures Echo (TTE) Yifan Gamez MD [address] [place] [address] [facility] [address] [place] [phone] Referral ID Status Reason Start Date Expiration Date Visits Re quested Visits Authorized [id number] Closed 07/14/2023 07/06/2024 1 1 Encounter Details Date Type Department Care Team (Latest Contact Info) Description 07/14/2023 7:45 AM CDT - 07/14/2023 11:59 PM CDT Hospital Encounter [facility] [address] [place] [phone] Yifan Clancy MD [address] [place] [phone] Anomaly of heart of fetus affecting , [...] CDT Appointment [facility] [address] [place] [phone] documented as of this encounter Procedures Procedure Name Priority Date/Time Associated Diagnosis Comments ECHO COMPLETE Routine 07/14/2023 1 0:10 AM CDT Anomaly of heart of fetus affecting , antepartum, single or unspecified fetus documented in this encounter Results * ECHO COMPLETE (07/14/2023 10:10 AM CDT) Anatomical Region Laterality Modality Echocardiography 07/14/2023 8:18 AM CDT Narrative 07/14/2023 10:23 AM CDT [id number]^ASTON^YIFAN ? Study ID: [id number] ?[facility] ?[facility] ?[address] ?[place] [address] ? Echocardiogram Name: GRZEGORZ AN RA Gutierres [...] blood. pressure gradient. Delivery is recommended at [facility]. Cardiology consultation and echocardiogram is recommended immediately [...] to the left atrium. There is laminar noorj-nj-kgmj shunting across the foramen ovale. Atrioventricular valves: [...] Note Carlos Alberto Ott MD - 07/14/2023 [id number]^ASTON^YIFAN Study ID:[id number] [facility] [address] [address] Echocardiogram Name: GRZEGORZ AN RA Gutierres Study [...] pressure gradient. Delivery is recommended [facility]. Cardiology consultation and echocardiogram isrecommended [...] in to the left atrium. There is vdaydzfphvkf-bv-oino shunting across the foramen ovale. Atrioventricular valves: [...] fetus documented in this encounter Care Teams Telephone Order Clerk Room Service Relationship Specialty Start Date End Date No Ref-Primary, Physician PCP - General 05/08/23 documented as of this encounter
--- OUTSIDE RECORDS SUMMARY | 2023-09-11 07:13 | XMS_ITS | Encounter Summary ---
Author Organization [place] Address [address] [place] [address]. [place] [address] Care Team Providers Care Inspector Watch Assembly Name Role Phone No Ref-Primary, Physician Primary Care Provider Reason for Referral * (Routine) - Closed Specialty Diagnoses / Procedures Referred By Contac t Referred To Contact Cardiology Diagnoses Anomaly of heart of fetus affecting , antepartum, single or unspecified fetus Procedures Echo (TTE) Complete Yifan Clancy MD [address] [place] [phone] [facility] [address] [place] [phone] Referral ID Status Reason Start Date Expiration Date Visits Re quested Visits Authorized [id number] Closed 07/14/2023 07/06/2024 1 1 Encounter Details Date Type Department Care Team (Late st Contact Info) Description 07/07/2023 Orders Only [facility] [address] [place] [address] [facility] [address] [place] [address] Yifan Clancy MD [address] [place] [address] Anomaly of heart of fetus affecting [...] Info) Description 09/28/2023 7:30 AM CDT Appointment [facility] [address] [place] [address] documented as of this encounter Results * ECHO COMPLETE (07/14/2023 10:10 AM CDT) Anatomical Region Laterality Modality Echocardiography 07/14/2023 8:18 AM CDT Narrative 07/14/2023 10:23 AM CDT [id number]^CLANCY^YIFAN ? Study ID: [id number] ?[facility] ?[facility] ?[address] ?[place] [address] ? Echocardiogram Name: GRZEGORZ RA AN Study [...] blood. pressure gradient. Delivery is recommended at [facility]. Cardiology consultation and echocardiogram is [...] to the left atrium. There is laminar rfogm-al-gjsv shunting across the foramen ovale. Atrioventricular valves: [...] Ott MD 07/14/2023 10:23 AM Procedure Note Cralos Alberto Ott MD - 07/14/2023 [id number]^CLANCY^YIFAN Study ID:[id number] [facility] [address] [address] Echocardiogram Name: RA NARAYAN Study Date: 07/14/2023 [...] pressure gradient. Delivery is recommended [facility]. Cardiology consultation and echocardiogram isrecommended immediately after [...] in to the left atrium. There is guafipoogscs-th-hamn shunting across the foramen ovale. Atrioventricular valves: [...] fetus documented in this encounter Care Teams Inspector Watch Assembly Relationship Specialty Start Date End Date No Ref-Primary, Physician PCP - General 05/08/23 documented as of this encounter
--- OUTSIDE RECORDS SUMMARY | 2023-09-11 07:13 | XMS_ITS | Encounter Summary ---
Author Organization [place] Address [facility] [place] [address] Care Team Providers Care Sales Project Coordinator Name Role Phone No Ref-Primary, Physician [...] Info) Description 09/28/2023 7:30 AM CDT Appointment [facility] [address] [place] [address] documented as of this encounter Visit Diagnoses Not on filedocumented in this encounter Additional Health Concerns Assessment Noted Time PHQ-9 Depression Total Score: 0 08/19/19 24 12:54 PM CDT documented as of this encounter Care Teams Sales Project Coordinator Relationship Specialty Start Date End Date No Ref-Primary, Physician PCP - General 05/08/23 documented as of this encounter
--- OUTSIDE RECORDS SUMMARY | 2023-09-11 07:13 | XMS_ITS | Encounter Summary ---
Author Organization [place] Address [address] [place] [address]. [place] [address] Care Team Providers Care Respiratory Therapist Assistant Name Role Phone No Ref-Primary, Physician Primary Care Provider Reason for Referral * (Routine) - Closed Specialty Diagnoses / Procedures Referred By Contac t Referred To Contact Cardiology Diagnoses Anomaly of heart of fetus affecting , antepartum, single or unspecified fetus Procedures Echo (TTE) Complete Amor Leonard MD [address] [place] [phone] [facility] [address] [place] [phone] Referral ID Status Reason Start Date Expiration Date Visits Re quested Visits Authorized [id number] Closed 08/19/2023 08/18/2024 1 1 Encounter Details Date Type Department Care Team (Late st Contact Info) Description 08/19/2023 Orders Only [facility] [address] [place] [address] Clinic 12[address] [place] [address] Amor Leonard MD [address] [place] [address] Anomaly of heart of fetus affecting [...] Info) Description 09/28/2023 7:30 AM CDT Appointment [facility] [address] [place] [phone] documented as of this encounter Results * ECHO COMPLETE (08/19/2023 11:23 AM CDT) Anatomical Region Laterality Modality Ultrasound 08/19/2023 10:5 5 AM CDT Narrative 08/20/2023 8:33 AM CDT [id number]^LEONARD^AMOR ? Study ID: [id number] ?[facility] ?[facility] ?[address] ?[place] [address] ? Echocardiogram Name: RA NARAYAN Study Date: 08/19/2023 10:55 AM ?Patient Location: [facility] Gender: Female ? Patient Class: Outpatient : 2000 ?Age: 22 yrs Ordering Provider: AMOR LEONARD Referring Provider: FRANCIA GILMAN Performed By: Fabiola Sahni Physician: Yonatan Black MD Reason For Study: Anomaly of heart of fetus affecting , antepartum, singl Data: Number of fetuses: This is a law gestation. Due date: 10/02/2023. Gestational age: 33w5d. Delivery at: [place]. Specific Indication: echocardiogram performed for suspected coarctation [...] to the patient. Delivery is recommended at [facility]. Cardiology consultation and echocardiogram is [...] to the left atrium. There is laminar xoiuw-cl-vmpn shunting across the foramen ovale. Atrioventricular valves: [...] Procedure Note Yonatan Black MD - 08/20/2023 [id number]^HORACIO^AMOR Study ID:[id number] [facility] [address] [address] Echocardiogram Name: RA NARAYAN Study Date: 08/19/2023 10:55 AM Patient Location:[facility] Gender: Female Patient Class:Outpatient : [id number] Age: 22 yrs Ordering Provider: AMOR LEONARD Referring Provider: FRANCIA GILMAN Performed By: Fabiola Sahni Physician: Yonatan Black MD Reason For Study: Anomaly of heart of fetus affecting ,antepartum, singl Data: Number of fetuses: This is a law gestation. Duedate: 10/02/2023. Gestational age: 33w5d. Delivery at: [place]. Specific Indication: echocardiogram performed for suspected coarctation [...] to the patient. Delivery is recommended at [facility]. Cardiology consultation and echocardiogram is [...] in to the left atrium. There is dhiaeohozoph-xl-iytt shunting across the foramen ovale. Atrioventricular valves: [...] documented as of this encounter Care Teams Respiratory Therapist Assistant Relationship Specialty Start Date End Date No Ref-Primary, Physician PCP - General 05/08/23 documented as of this encounter
--- NOTE | 2023-09-11 07:15 | CRLHL7_ITS ---
For Patients: As a result of the Century Cures Act, medical imaging exams and procedure reports are released immediately into your electronic medical record. You may view this report before your referring provider. If you have questions, please contact your health care provider. INDICATION: Congenital heart defect. COMPARISON: OB ultrasound 09/04/2023. TECHNIQUE: Ultrasound OB pelvis biophysical profile. Real time bolden scale imaging of the fetus was performed without non-stress testing. FINDINGS: Sonographic imaging demonstrates a single living intrauterine gestation. The fetus demonstrates a regular cardiac rate of 122 beats per minute. The fetus has a cephalic orientation. The placenta lies posteriorly. Single deepest pocket measures 3.5 cm (2/2). The fetus was active (2/2). There was normal flexion and extension of the trunk and extremities (2/2). The fetus demonstrated normal breathing movements (2/2). IMPRESSION: Normal biophysical profile score 8 out of 8. Dictated by Yesi Poole MD @ 09/12/2023 3:04:01 AM (Electronically Signed)
== END 2023-09-11 07:10 | disposition home or self-care (01) ==
LOC: US 07:10
PROVIDERS: Visit Provider Obstetrics & Gynecology
DX: O35.BXX0 Maternal care for other (suspected) fetal abnormality and damage, fetal cardiac anomalies, not applicable or unspecified (principal)
CPT/HCPCS: 76819

== ENCOUNTER 2023-09-18 12:52 | Outpatient (CLI) | payer MEDICAID, SELFPAY ==
--- OUTSIDE RECORDS SUMMARY | 2023-09-18 12:54 | XMS_ITS | Encounter Summary ---
Author Organization [place] Address [address] [facility] [place] [address] Care Team Providers Care Metal Rivet Machine Operator Name Role Phone No Ref-Primary, Physician Primary Care Provider Hetal Parra MD Unavailable [phone] Reason for Visit * Reason Onset Date Comments Clinic Care Coordination - Follow-up 09/07/2023 Cordblood consent Encounter Details Date Type Department Care Team (Late st Contact Info) Description 09/07/2023 Telephone [facility] [place] [address] [facility] [address] [place] [address] Adriana Gómez GC [address] [place] [address] Clinic Care Coordination - Follow-up [...] requesting a call back. Adriana Gómez MS, [facility] Licensed Genetic Counselor [facility] Pager: [phone] Office: documented in this encounter Plan of Treatment Upcoming Encounters Date Type Department Care Team (Late st Contact Info) Description 09/28/2023 7:30 AM CDT Appointment [facility] [address] [place] [phone] documented as of this encounter Visit Diagnoses Not on filedocumented in this encounter Additional Health Concerns Assessment Noted Time PHQ-9 Depression Total Score: 0 08/19/19 24 12:54 PM CDT documented as of this encounter Care Teams Metal Rivet Machine Operator Relationship Specialty Start Date End Date No Ref-Primary, Physician PCP - General 05/08/23 Hetal Parra MD [address] [facility] [address] [address] Assigned OBGYN Provider 09/06/23 documented as of this encounter
--- OUTSIDE RECORDS SUMMARY | 2023-09-18 12:54 | XMS_ITS | Clinical Summary ---
Author Organization [place] Address [address] [facility] [place] [address] Care Team Providers Care Probation Supervisor Name Role Phone No Ref-Primary, Physician Primary Care Provider Hetal Parra MD Unavailable [phone] Allergies Active Allergy Reactions Criticality Noted Date Comments [place] Extract Difficulty breathing,Rash,Shortness Of Breath High 01/03/2020 [...] consultations, please see the maternal medical record: Roesmary Nenita An MR#:[id number] Delivery hospital: [facility] DIAGNOSIS: DIAGNOSIS / DIAGNOSES: 1) CHD-Shone's Complex, coarcation of the aorta GENETIC (and other) TESTING: MaterniT Genome neg PERTINENT MATERNAL CONDITIONS: 1) + Chlamydia 02/16/23 CARE PLAN: 1) Ultrasounds - q 4 08/30 2) Other Imaging - echo 05/19, 07/13, 6/5- no further echoes 3) surveillance - weekly BPP at 32 weeks, Fridays in [facility] 4) Relocation - 5) care with - [facility] 6) Labs - (look in media tab [...] Surg- TBD DELIVERY PLAN: 1) Hospital - [facility] 2) Gestational age - IOL 39w3d 0730 09/28/23 3) Route - 4) Notifications in labor - 5) Genetics/specimen collection for baby: Needs consent for cordblood testing ([id number]) 08/30 BABY PLAN: 1) Baby to go [...] delivery. REFERRING PROVIDER(S): 1) Primary OB Provider: [facility] 2) Other Sub-Specialty Provider: 3) Anticipated Pediatric Provider: DEMOGRAPHICS: Patient contact info: [address] [facility] [address] Partner's name: Aries Baby's name: Estimated Date of Delivery Comme nts Yes 10/02/2023 Based on Ultraso und No additional problems on file Encounters Date Type Department Care Team Description 09/09/2023 9:30 AM CDT Virtual Visit [facility] [address] [facility] 12th [facility] [phone] Kimberly Maddox MD Anomaly of heart of fetus affecting , antepartum, single or unspecified fetus (Primary Dx) 09/07/2023 Telephone [facility] [address] [facility] [address] [place] [address] Adriana Gómez GC Clinic Care Coordination - Follow-up (Cordblood consent) 09/02/2023 MyC Medical Advice [facility] [address] [facility] [place] [address] [place] [phone] Soumya Rodriguez LPN 08/31/2023 3:00 PM CDT Office Visit [facility] [address] [place] [address] Hetal Parra MD Johnson, Kate Talbot, CN Supervision of high risk in third trimester (Primary Dx); complicated by congenital heart disease, single or unspecified fetus 08/31/2023 3:00 PM CDT Office Visit [facility] [address] [place] [address] Hetal Parra MD Stoner, Natalie E, GC Abnormal ultrasound (Primary Dx); Encounter for procreative genetic counseling and testing 08/31/2023 2:45 PM CDT Office Visit [facility] [address] [place] [address] Hetal Parra MD complicated by congenital heart disease, single or unspecified fetus (Primary Dx) 08/31/2023 2:13 PM CDT - 08/31/2023 11:59 PM CDT Hospital Encounter [facility] [address] [place] [phone] Hetal Parra MD related condition, antepartum Discharge Disposition: Home or Self Care 08/31/2023 Travel 08/19/2023 12:15 PM CDT Office Visit [facility] [address] [place] [address] Leyda Guzman MD complicated by congenital heart disease, single or unspecified fetus (Primary Dx) 08/19/2023 11:45 AM CDT - 08/19/2023 11:59 PM CDT Hospital Encounter [facility] [address] [place] [phone] Leyda Guzman MD related condition, antepartum Discharge Disposition: Home or Self Care 08/19/2023 10:00 AM CDT Office Visit [facility] [address] [place] [phone] Gudelia Sahni CNM related condition, antepartum 08/19/2023 9:30 AM CDT Office Visit [facility] [address] [place] [phone] Gudelia Sahni CNM Supervision of high risk in third trimester (Primary Dx); complicated by congenital heart disease, single or unspecified fetus 08/19/2023 9:25 AM CDT - 08/19/2023 11:44 AM CDT Hospital Encounter [facility] [address] [place] [phone] Leyda Guzman MD Urmfmusfet Anomaly of heart of fetus affecting , antepartum, single or unspecified fetus Discharge Disposition: Home or Self Care 08/19/2023 Office Visit [facility] - Heart & Vascular Service Line [address] [place] [phone] Yonatan Black MD cardiac disease affecting , single or unspecified fetus (Primary Dx) 08/19/2023 Documentation Only [facility] CASE MANAGEMENT [phone] Edda Ohara BIRD KEEPER 08/19/2023 Orders Only [facility] [address] [place] [address] [place] [phone] CarlosA lberto Leonard MD Anomaly of heart of fetus affecting , antepartum, single or unspecified fetus (Primary Dx) 08/19/2023 Travel 08/17/2023 MyC Medical Advice [facility] [address] [facility] [address] [place] [phone] Soumya Rodriguez LPN 08/04/2023 Orders Only [facility] [address] [place] [address] Louise Haley GC Abnormal ultrasound (Primary Dx) 08/04/2023 Telephone [facility] [address] [place] [address] Shaunna Nolasco, RN Appointment 08/04/2023 Orders Only [facility] [address] [place] [address] Shaunna Nolasco RN related condition, antepartum (Primary Dx) 08/03/2023 Telephone [facility] [address] [place] [address] Shaunna Nolasco RN Appointment 08/03/2023 Orders Only [facility] [address] [place] [address] Shaunna Nolasco RN related condition, antepartum (Primary Dx) 07/31/2023 2:45 PM CDT Office Visit [facility] [address] [facility] [address] [place] [phone] Jair Sanchez MD complicated by congenital heart disease, single or unspecified fetus (Primary Dx) 07/31/2023 2:08 PM CDT - 07/31/2023 11:59 PM CDT Hospital Encounter [facility] [address] [facility] [address] [place] [phone] Jair Sanchez MD Congenital heart defect Discharge Disposition: Home or Self Care 07/31/2023 Travel 07/14/2023 7:45 AM CDT - 07/14/2023 11:59 PM CDT Hospital Encounter [facility] [address] [place] [phone] Yifan Aponte MD Anomaly of heart of fetus affecting , antepartum, single or unspecified fetus Discharge Disposition: Home or Self Care 07/14/2023 Office Visit [facility] [address] [place] [phone] Carlos Alberto Leonard MD cardiac disease affecting , single or unspecified fetus (Primary Dx) 07/14/2023 Travel 07/07/2023 Orders Only [facility] [address] [place] [address] Clinic [address] [place] [phone] Yifan Aponte MD Anomaly of heart of fetus affecting , antepartum, single or unspecified fetus (Primary Dx) 06/29/2023 2:45 PM CDT Office Visit [facility] [address] [facility] [address] [place] [phone] Swati Hurst MD Congenital heart defect (Primary Dx) 06/29/2023 2:15 PM CDT - 06/29/2023 11:59 PM CDT Hospital Encounter [facility] [address] [facility] [address] [place] [phone] Swati Hurst MD abnormality affecting management of [...] Description 09/28/2023 7:30 AM CDT Appointment [facility] [address] [place] [phone] Health Maintenance Due Date Last Done Comments [...] MATERNAL SCREENING DISCUSSION 03/06/2023 OBGCT (OB) 06/12/2023 INFLUENZA VACCINE (#1) 2023 03/17/2023 DTAP/TDAP/TD IMMUNIZATION (3 - Td or Tdap) 01/28/2024 07/28/2023, 07/19/2019 PAP 09/12/2025 09/12/2022, 09/12/2022 HPV IMMUNIZATION Completed 12/11/2021, 07/11/2021, 05/20/2021 COVID-19 Vaccine Completed 03/17/2023, 05/14/2020, 04/16/2020 PHQ-2 (once per calendar year) Completed 08/19/2023, [...] Supervision of high risk in third trimester [facility] COMPREHENSIVE SINGLE F/U Routine 08/31/2023 2:52 PM CDT related condition, antepartum [facility] BPP SINGLE Routine 08/19/2023 12:31 PM CDT related condition, antepartum ECHO COMPLETE Routine 08/19/2023 1 1:23 AM CDT Anomaly of heart of fetus affecting , antepartum, single or unspecified fetus [facility] COMPREHENSIVE SINGLE F/U Routine 07/31/2023 2:45 PM CDT Congenital heart defect ECHO COMPLETE Routine 07/14/2023 1 0:10 AM CDT Anomaly of heart of fetus affecting , antepartum, single or unspecified fetus [facility] COMPREHENSIVE SINGLE F/U Routine 06/29/2023 2:58 [...] 3:47 PM CDT 08/31/2023 4:06 PM CDT [facility] - 09/01/2023 11:54 AM CDT The Review[employer] Xpert GBS LB Assay, performed on the [employer]?? [employer] Systems, is a qualitative in vitro [...] settings. The device is not intended for gkrxk-hx-dtmk use. Gudelia Sahni [facility] - MICRO GENE [employer] ORDERABLES [facility] Inf. Diseases Diag. Lab [address] [facility], [address] [place] [phone], [facility] * [facility] Comprehensive Single F/U (08/31/2023 2:52 PM [...] ? Study Date: ??08/31/2023 2:23pm Pat. NO: ??[id number] ?Referring ??MD: FRANCIA GILMAN Site: ? Web Master: Kassie Jackson RDMS : ??2000 ?Age: ?? [...] ?oz Head / Face / Neck Biometry: Die Operator ?4.8 ? mm CM ? 6.2 ? mm ANATOMY ----- The following structures appear abnormal: Heart / Thorax ?4-chamber view: coarctation of the aorta. LVOT view. 4-prmhky-vrgbtrw view. The following structures appear normal: Head [...] ongoing recommendations. Continue weekly surveillance (scheduled with [facility]). She is scheduled for induction on 09/27. If you have questions regarding today's evaluation or if we can be of further service, please contact the [facility]. anomalies may be present but not detected Procedure Note Hetal Parra MD - 09/01/2023 Comp Follow Up ----- Pat. Name: GRZEGORZ ANROSEMARY Arias Study Date: 08/31/2023 2:23pm Pat. NO: [id number] Referring MD: FRANCIA GILMAN Site: Web Master: Kassie Jackson RDMS : 2000 Age: 23 [...] 12oz Head / Face / Neck Biometry: Die Operator 4.8mm CM 6.2mm ANATOMY ----- The following structures appear abnormal: Heart / Thorax 4-chamber view: coarctation of theaorta. LVOT view. 4-jzgtos-ftghmoa view. The following structures appear normal: Head [...] andongoing recommendations. Continue weekly surveillance (scheduled with [facility]). She isscheduled for induction on 09/27. If [...] The BPP was 10/21. Jair Sanchez MD [facility] US ORDERABL * [facility] BPP Single (08/19/2023 12:31 PM CDT) Anatomical Region Laterality Modality Ultrasound 08/19/2023 12:1 1 PM CDT Impressions 08/19/2023 4:47 PM CDT IMPRESSION ----- 1) Law intrauterine at 33w 5d gestational age. 2) The BPP is reassuring. 3) The amniotic fluid volume appeared normal. Narrative 08/19/2023 4:47 PM CDT ?BPP ----- Pat. Name: ROSEMARY NARAYAN ? Study Date: ??08/19/2023 12:11pm Pat. NO: ??[id number] ?Referring ??MD: GUDELIA SAHNI Site: ??[facility] ? Web Master: Molly Bernal RDMS : ??2000 ?Age: ?? [...] NARAYAN Study Date: 08/19/2023 12:11pm Pat. NO: [id number] Referring MD: GUDELIA SAHNI Site: [facility] Web Master: Molly Bernal RDMS : 2000 Age: 22 [...] fluid volume appeared normal. Jair Sanchez MD [facility] US ORDERABL ES * ECHO COMPLETE (08/19/2023 11:23 AM CDT) Anatomical Region Laterality Modality Ultrasound 08/19/2023 10:5 5 AM CDT Narrative 08/20/2023 8:33 AM CDT [id number]^ERLIN ? Study ID: [id number] ?[facility] ?[facility] ?[address] ?[place] [address] ? Echocardiogram Name: ROSEMARY NARAYAN Study Date: 08/19/2023 10:55 AM ?Patient Location: [facility] Gender: Female ? Patient Class: Outpatient : 2000 ?Age: 22 yrs Ordering Provider: CARLOS ALBERTO LEONARD Referring Provider: FRANCIA GILMAN Performed By: Fabiola Sahni Reading Physician: Yonatan Black MD Reason For Study: Anomaly of heart of fetus affecting , antepartum, singl Data: Number of fetuses: This is a law gestation. Due date: 10/02/2023. Gestational age: 33w5d. Delivery at: [place]. Specific Indication: echocardiogram performed for suspected coarctation [...] to the patient. Delivery is recommended at [facility]. Cardiology consultation and echocardiogram is recommended [...] to the left atrium. There is laminar omgzx-yh-peqb shunting across the foramen ovale. Atrioventricular valves: [...] Procedure Note Yonatan Black MD - 08/20/2023 [id number] [facility] [id number]^HORACIO^CARLOS ALBERTO Study ID:[id number] [facility] [place] [address] Echocardiogram Name: ROSEMARY NARAYAN Study Date: 08/19/2023 10:55 AM Patient Location:[facility] Gender: Female Patient Class:Outpatient : 2000 Age: 22 yrs Ordering Provider: CARLOS ALBERTO LEONARD Referring Provider: FRANCIA GILMAN Performed By: Fabiola Sahni Physician: Yonatan Black MD Reason For Study: Anomaly of heart of fetus affecting ,antepartum, singl Data: Number of fetuses: This is a law gestation. Duedate: 10/02/2023. Gestational age: 33w5d. Delivery at: [place]. Specific Indication: echocardiogram performed for suspected coarctation [...] to the patient. Delivery is recommended at [facility]. Cardiology consultation and echocardiogram is recommended [...] in to the left atrium. There is ksabtwupzwbg-sh-elfu shunting across the foramen ovale. Atrioventricular valves: [...] AM CDT Narrative 07/14/2023 10:23 AM CDT [id number]^APONTE^YIFAN ? Study ID: [id number] ?[facility] ?[facility] ?[address] ?[place] [address] ? Echocardiogram Name: ROSEMARY NARAYAN Study Date: [...] gradient. Delivery is recommended at [facility]. Cardiology consultation and echocardiogram is recommended [...] to the left atrium. There is laminar rrkyb-wl-xzxi shunting across the foramen ovale. Atrioventricular valves: [...] Note Carlos Alberto Leonard MD - 07/14/2023 [id number]^APONTE^YIFAN Study ID:[id number] [facility] [address] [address] Echocardiogram Name: ROSEMARY NARAYAN Study Date: 07/14/2023 [...] in to the left atrium. There is vapldxgcisma-iu-vhoj shunting across the foramen ovale. Atrioventricular valves: [...] LES from Last 3 Months Care Teams Probation Supervisor Relationship Specialty Start Date End Date No Ref-Primary, Physician PCP - General 05/08/23 Hetal Parra MD [address] [place], [place] [phone] Assigned OBGYN Provider 09/06/23
--- OUTSIDE RECORDS SUMMARY | 2023-09-18 12:54 | XMS_ITS | Encounter Summary ---
Author Organization [place] Address [address] [place] [address] Care Team Providers Care Coding Coordinator Name Role Phone No Ref-Primary, Physician Primary Care Provider Hetal Parra MD Unavailable [phone] Reason for Visit * Reason Comments Consult Encounter Details Date Type Department Care Team ([facility] st Contact Info) Description 09/09/2023 9:30 AM CDT Virtual Visit [facility] [address] [place] [address] [address],[place] [phone] Kimberly Maddox MD [address] [place] [address] Anomaly of heart of fetus affecting [...] [facility] in [facility] in [place] on September 09, 2023 in consultation for [...] be resent by: Text to cell phone: [phone] Will anyone else be joining your video visit? No documented in this encounter Plan of Treatment Upcoming Encounters Date Type Department Care Team (Late st Contact Info) Description 09/28/2023 7:30 AM CDT Appointment [facility] [address] [place] [phone] documented as of this encounter Visit Diagnoses Diagnosis Anomaly of heart of fetus affecting , antepartum, single or unspecified fetus- Primary documented in this encounter Additional Health Concerns Assessment Noted Time PHQ-9 Depression Total Score: 0 08/19/19 12:54 PM CDT documented as of this encounter Care Teams Coding Coordinator Relationship Specialty Start Date End Date No Ref-Primary, Physician PCP - General 05/08/23 Hetal Parra MD [address] [address] Assigned OBGYN Provider 09/06/23 documented as of this encounter
--- OUTSIDE RECORDS SUMMARY | 2023-09-18 12:54 | XMS_ITS | Referral Summary ---
Author Organization [place] Address [address] [place] [address]. [place] [address] Care Team Providers Care City Alderman Name Role Phone No Ref-Primary, Physician Primary Care Provider Hetal Parra MD Unavailable [phone] Encounters Date Type Department Care Team Description 09/09/2023 9:30 AM CDT Virtual Visit [facility] [address] [place] [address],[place] [address] Kimberly Maddox MD Anomaly of heart of fetus affecting , antepartum, single or unspecified fetus (Primary Dx) 09/07/2023 Telephone [facility] [address] [facility] [address] [place] [address] Adriana Gómez GC Clinic Care Coordination - Follow-up (Cordblood consent) 09/02/2023 MyC Medical Advice [facility] [address] [place] [phone] Soumya Rodriguez LPN 08/31/2023 Travel 08/31/2023 3:00 PM CDT Office Visit [facility] [address] [place], [place] [address] [place], [place] [phone] Hetal Parra MD Johnson, Kate Talbot, LIBIA Supervision of high risk in third trimester (Primary Dx); complicated by congenital heart disease, single or unspecified fetus 08/31/2023 3:00 PM CDT Office Visit [facility] [place] [address] [place] [address] Hetal Parra MD Stoner, Natalie E, GC Abnormal ultrasound (Primary Dx); Encounter for procreative genetic counseling and testing 08/31/2023 2:45 PM CDT Office Visit [facility] [address] [place], [place] [address] [place] [address] Hetal Parra MD complicated by congenital heart disease, single or unspecified fetus (Primary Dx) 08/31/2023 2:13 PM CDT - 08/31/2023 11:59 PM CDT Hospital Encounter [facility] [address] [facility] [place] [phone] Hetal Parra MD related condition, antepartum Discharge Disposition: Home or Self Care 08/19/2023 Office Visit [facility] Service Line [address] [place] [phone] Yonatan Black MD cardiac disease affecting , single or unspecified fetus (Primary Dx) 08/19/2023 Documentation Only [facility] CASE MANAGEMENT [phone] Edda Ohara, [facility] 08/19/2023 Orders Only [facility] [address] [place] [address] [facility] [address] [place] [phone] Carlos Alberto Leonard MD Anomaly of heart of fetus affecting , antepartum, single or unspecified fetus (Primary Dx) 08/19/2023 Travel 08/19/2023 9:25 AM CDT - 08/19/2023 11:44 AM CDT Hospital Encounter [facility] [address] [place] [phone] Leyda Guzman MD Urmfmusfet Anomaly of heart of fetus affecting , antepartum, single or unspecified fetus Discharge Disposition: Home or Self Care 08/19/2023 10:00 AM CDT Office [facility] [address] [place] [address] Gudelia Sahni CNM related condition, antepartum 08/19/2023 12:15 PM CDT Office Visit [facility] [address] [place] [address] Leyda Guzman MD complicated by congenital heart disease, single or unspecified fetus (Primary Dx) 08/19/2023 11:45 AM CDT - 08/19/2023 11:59 PM CDT Hospital Encounter [facility] [address] [place] [address] Leyda Guzman MD related condition, antepartum Discharge Disposition: Home or Self Care 08/19/2023 9:30 AM CDT Office Visit [facility] [address] [facility] [place] [address] Gudelia Sahni CNM Supervision of high risk in third trimester (Primary Dx); complicated by congenital heart disease, single or unspecified fetus 08/17/2023 MyC Medical Advice [facility] [address] [facility] [address] [place] [address] Soumya Rodriguez LPN 08/04/2023 Orders Only [facility] [address] [place] [address] Louise Haley GC Abnormal ultrasound (Primary Dx) 08/04/2023 Telephone [facility] [address] [place] [address] Shaunna Nolasco RN Appointment 08/04/2023 Orders Only [facility] [address] [place] [address] Shaunna Nolasco RN related condition, antepartum (Primary Dx) 08/03/2023 Telephone [facility] [place] [address] [place] [address] Shaunna Nolasco RN Appointment 08/03/2023 Orders Only [facility] [place] [address] [place] [address] Shaunna Nolasco RN related condition, antepartum (Primary Dx) 07/31/2023 Travel 07/31/2023 2:45 PM CDT Office Visit [facility] [address] [facility] [address] [place] [phone] Jair Sanchez MD complicated by congenital heart disease, single or unspecified fetus (Primary Dx) 07/31/2023 2:08 PM CDT - 07/31/2023 11:59 PM CDT Hospital Encounter [facility] [address] [facility] [address] [place] [phone] Jair Sanchez MD Congenital heart defect Discharge Disposition: Home or Self Care 07/14/2023 Office Visit [facility] [address] [place] [phone] Carlos Alberto Leonard MD cardiac disease affecting , single or unspecified fetus (Primary Dx) 07/14/2023 Travel 07/14/2023 7:45 AM CDT - 07/14/2023 11:59 PM CDT Hospital Encounter [facility] [address] [place] [phone] Yifan Aponte MD Anomaly of heart of fetus affecting , antepartum, single or unspecified fetus Discharge Disposition: Home or Self Care 07/07/2023 Orders Only [facility] [address] [place] [address] [facility] [address] [place] [phone] Yifan Aponte MD Anomaly of heart of fetus affecting , antepartum, single or unspecified fetus (Primary Dx) 06/29/2023 Travel 06/29/2023 2:45 PM CDT Office Visit [facility] [address] [facility] [address] [place] [address] Swati Hurst MD Congenital heart defect (Primary Dx) 06/29/2023 2:15 PM CDT - 06/29/2023 11:59 PM CDT Hospital Encounter [facility] [address] [facility] [address] [place] [address] Swati Hurst MD abnormality affecting management of mother, single or unspecified fetus Discharge Disposition: Home or Self Care from Last 3 Months Allergies Active Allergy Reactions Criticality Noted Date Comments Califon Extract Difficulty breathing,Rash,Shortness Of Breath High 01/03/2020 [...] see the maternal medical record: Rosemary Osborne MR#:[id number] Delivery hospital: [facility] DIAGNOSIS: DIAGNOSIS / DIAGNOSES: 1) CHD-Shone's Complex, coarcation of the aorta GENETIC (and other) TESTING: MaterniT Genome neg PERTINENT MATERNAL CONDITIONS: 1) + Chlamydia 02/16/23 CARE PLAN: 1) Ultrasounds - q 4 08/30 2) Other Imaging - echo 05/19, 07/13, 08/18- no further echoes 3) surveillance - weekly BPP at 32 weeks, Fridays in [place] 4) Relocation - 5) care with - [place] 6) Labs - (look in media tab [...] Surg- TBD DELIVERY PLAN: 1) Hospital - [facility] 2) Gestational age - IOL 39w3d 0730 09/28/23 3) Route - 4) Notifications in labor - 5) Genetics/specimen collection for baby: Needs consent for cordblood testing ([id number]) 08/30 BABY PLAN: 1) Baby to go [...] delivery. REFERRING PROVIDER(S): 1) Primary OB Provider: [facility] 2) Other Sub-Specialty Provider: 3) Anticipated Pediatric Provider: DEMOGRAPHICS: Patient contact info: [address] [facility] [place] [address] Partner's name: Aries Baby's name: Estimated Date [...] Info) Description 09/28/2023 7:30 AM CDT Appointment [facility] [address] [place] [phone] Procedures Procedure Name Priority Date/Time Associated Diagnosis Comments GROUP B STREP PCR Routine 08/31/2023 3:4 7 PM CDT Supervision of high risk in third trimester [facility] US COMPREHENSIVE SINGLE F/U Routine 08/31/2023 2:52 PM CDT related condition, antepartum [facility] BPP SINGLE Routine 08/19/2023 12:31 PM CDT related condition, antepartum ECHO COMPLETE Routine 08/19/2023 1 1:23 AM CDT Anomaly of heart of fetus affecting , antepartum, single or unspecified fetus [facility] US COMPREHENSIVE SINGLE F/U Routine 07/31/2023 2:45 PM CDT Congenital heart defect ECHO COMPLETE Routine 07/14/2023 1 0:10 AM CDT Anomaly of heart of fetus affecting , antepartum, single or unspecified fetus [facility] COMPREHENSIVE SINGLE F/U Routine [...] LABORATORY - 09/01/2023 11:54 AM CDT The Cep[employer] Xpert GBS LB Assay, performed on the [employer]?? Instrument Systems, is a qualitative in vitro [...] settings. The device is not intended for sqeda-wj-vfda use. Gudelia WYATT LAB - MICRO GENE RAL ORDERABLES [facility] Inf. Diseases Diag. Lab [address] [facility], [address] [place] [address], [facility] * [facility] Comprehensive Single F/U (08/31/2023 2:52 [...] ? Study Date: ??08/31/2023 2:23pm Pat. NO: ??[id number] ?Referring ??: FRANCIA GILMAN Site: ? Paraoptometric: Kassie [place] RDMS : ??2000 ?Age: ?? 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 mm CM ? 6.2 ? mm ANATOMY ----- The following structures appear abnormal: Heart / Thorax ?4-chamber view: coarctation of the aorta. LVOT view. 9-ismmep-ujbdkza view. The following structures appear normal: Head [...] ongoing recommendations. Continue weekly surveillance (scheduled with [place]). She is scheduled for induction on 09/27. If you have questions regarding today's evaluation or if we can be of further service, please contact the Maternal- Medicine Center. anomalies may be present but not detected Procedure Note Hetal Parra MD - 09/01/2023 Comp Follow Up ----- Pat. Name: ROSEMARY NARAYAN Study Date: 08/31/2023 2:23pm Pat. 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 LVOT view. 6-euqugq-hhiixom view. The following structures appear normal: Head [...] with our office. Please see documentation in [facility] for full details from today's visit [...] The BPP was 8/8. Jair Sanchez MD [facility] US ORDERABL ES * [facility] BPP Single (08/19/2023 12:31 PM CDT) Anatomical Region Laterality Modality Ultrasound 08/19/2023 12:1 1 PM CDT Impressions 08/19/2023 4:47 PM CDT IMPRESSION ----- 1) Law intrauterine at 33w 5d gestational age. 2) The BPP is reassuring. 3) The amniotic fluid volume appeared normal. Narrative 08/19/2023 4:47 PM CDT ?BPP ----- Pat. Name: ROSEMARY NARAYAN ? Study Date: ??08/19/2023 12:11pm Pat. NO: ??[id number] ?Referring ??MD: GUDELIA SAHNI Site: ??[facility] ? Paraoptometric: Molly Bernal RDMS : ??2000 ?Age: ?? [...] NARAYAN Study Date: 08/19/2023 12:11pm Pat. NO: [id number] Referring MD: GUDELIA SAHNI Site: [facility] Paraoptometric: Molly Bernal RDMS : 2000 Age: 22 [...] AM CDT Narrative 08/20/2023 8:33 AM CDT [id number]^HORACIO^CARLOS ALBERTO ? Study ID: [id number] ?[facility] ?[facility] ?[address] ?[place] [address] ? Echocardiogram Name: ROSEMARY NARAYAN Study Date: 08/19/2023 10:55 AM ?Patient Location: [facility] Gender: Female ? Patient Class: Outpatient : 2000 ?Age: 22 yrs Ordering Provider: CARLOS ALBERTO LEONARD Referring Provider: FRANCIA GILMAN Performed By: Fabiola Sahni Physician: Yonatan Black MD Reason For Study: Anomaly of heart of fetus affecting , antepartum, singl Data: Number of fetuses: This is a law gestation. Due date: 10/02/2023. Gestational age: 33w5d. Delivery at: [place]. Specific Indication: echocardiogram performed for suspected coarctation [...] to the left atrium. There is laminar vrtde-sg-plss shunting across the foramen ovale. Atrioventricular valves: [...] Procedure Note Yonatan Black MD - 08/20/2023 [id number]^ERLIN Study ID:[id number] [facility] [address] [address] Echocardiogram Name: ROSEMARY NARAYAN Study Date: 08/19/2023 10:55 AM Patient Location:[facility] Gender: Female Patient Class:Outpatient : 2000 Age: 22 yrs Ordering Provider: CARLOS ALBERTO LEONARD Referring Provider: FRANCIA GILMAN Performed By: Fabiola Sahni Physician: Yonatan Black MD Reason For Study: Anomaly of heart of fetus affecting ,antepartum, singl Data: Number of fetuses: This is a law gestation. Duedate: 10/02/2023. Gestational age: 33w5d. Delivery at: [facility]. Specific Indication: echocardiogram performed for suspected coarctation [...] in to the left atrium. There is jcyqcldcixtm-oy-vbyk shunting across the foramen ovale. Atrioventricular valves: [...] AM CDT Narrative 07/14/2023 10:23 AM CDT [id number]^APONTE^YIFAN ? Study ID: [id number] ?[facility] ?[facility] ?[address] ?[place] [address] ? Echocardiogram Name: ROSEMARY NARAYAN Study Date: 07/14/2023 08:18 AM ? Patient Location: [facility] Gender: Female ?Patient Class: Outpatient : 2000 [...] blood. pressure gradient. Delivery is recommended at [facility] [...] to the left atrium. There is laminar swztn-mo-jqml shunting across the foramen ovale. Atrioventricular valves: [...] Note Carlos Alberto Leonard MD - 07/14/2023 [id number]^APONTE^YIFAN Study ID:[id number] [facility] [address] [address] Echocardiogram Name: ROSEMARY NARAYAN Study Date: 07/14/2023 [...] limb blood. pressure gradient. Delivery is recommended [facility]. Cardiology consultation and echocardiogram isrecommended immediately [...] in to the left atrium. There is xxivxmaqtxzz-iu-lrmm shunting across the foramen ovale. Atrioventricular valves: [...] LES from Last 3 Months Care Teams City Alderman Relationship Specialty Start Date End Date No Ref-Primary, Physician PCP - General 05/08/23 Hetal Parra MD [address] [place] [address] Assigned OBGYN Provider 09/06/23
--- OUTSIDE RECORDS SUMMARY | 2023-09-18 12:54 | XMS_ITS | Encounter Summary ---
Author Organization [facility] Address [address] [place] [address]. [place] [address] Care Team Providers Care County Court Judge Name Role Phone No Ref-Primary, Physician Primary Care Provider Hetal Parra MD Unavailable [phone] Encounter Details Date Type Department Care Team (Late st Contact Info) Description 09/02/2023 MyC Medical Advice [facility] [address] [place] [address] Clinic [address] [place] [address] Soumya Rodriguez LPN Social History [...] Info) Description 09/28/2023 7:30 AM CDT Appointment [facility] [address] [place] [address] documented as of this encounter Visit Diagnoses Not on filedocumented in this encounter Additional Health Concerns Assessment Noted Time PHQ-9 Depression Total Score: 0 08/19/19 24 12:54 PM CDT documented as of this encounter Care Teams County Court Judge Relationship Specialty Start Date End Date No Ref-Primary, Physician PCP - General 05/08/23 Hetal Parra MD [address] [address] Assigned OBGYN Provider 09/06/23 documented as of this encounter
--- OUTSIDE RECORDS SUMMARY | 2023-09-18 12:54 | XMS_ITS | Encounter Summary ---
Author Organization [place] Address [facility] [place] [address] Care Team Providers Care Poker Manager Name Role Phone No Ref-Primary, Physician [...] AM CDT Appointment [facility] [address] [place] [address] documented as of this encounter Visit Diagnoses Not on filedocumented in this encounter Additional Health Concerns Assessment Noted Time PHQ-9 Depression Total Score: 0 08/19/19 24 12:54 PM CDT documented as of this encounter Care Teams Poker Manager Relationship Specialty Start Date End Date No Ref-Primary, Physician PCP - General 05/08/23 documented as of this encounter
--- OUTSIDE RECORDS SUMMARY | 2023-09-18 12:54 | XMS_ITS | Encounter Summary ---
Author Organization [place] Address [address] [place] [address] Care Team Providers Care Survey Field Technician Name Role Phone No Ref-Primary, Physician [...] Sue Sahni CNM [address] [facility] [address] [place] [address] Referral ID Status Reason Start Date Expiration Date V isits Requested Visits Authorized [id number] Pending Review 08/19/2023 08/18/2024 1 1 Encounter Details Date Type Department Care Team (Late st Contact Info) Description 08/31/2023 3:00 PM CDT Office Visit [facility] Medicine Center [place] [address] [place], [place] [address] Hetal Parra MD [address] [place] [address] Sue Shani CNM [address] [place] [address] Supervision of high risk in [...] for you. Talk to your doctor or lobsterman about any concerns you have. You'll probably [...] Where can you learn more? Go to https://www.Ideatory.[employer]/patiented Enter B912 in the search box to learn more about Weeks 34 to 36 of Your : Care Instructions. Current as of: September 22, 2022?Content Version: 14.0 ?? [employer]. Care instructions adapted under license by your healthcare professional. If you have questions about a medical condition or this instruction, always ask your healthcare professional. [employer] disclaims any warranty or liability for your [...] Where can you learn more? Go to https://www.Ideatory.net/patiented Enter M001 in the search box to learn more about Group B Strep During : Care Instructions. Current as of: August 25, 2022?Content Version: 14.0 ?? [employer]. Care instructions adapted under license by your healthcare professional. If you have questions about a medical condition or this instruction, always ask your healthcare professional. [employer] disclaims any warranty or liability for your [...] risks and benefits. Ask your doctor or nurse-lobsterman: Why do I need to be induced? What are the risks to my baby? How will you start my labor? How will you know if my baby is ready to be born? How will you know if my body is ready to give ? Where can I get more information? To learn more about induction, you may visit these websites: [employer]Mid[employer]: www.mymidwife.org The [employer] of Obstetricians and Gynecologists: www.acog.org Childbirth Connection: www.childbirthconnection.org May Dim: www.maySequoia Media Group.OneEyeAnt Association of Women's Health, Obstetrics, and Nursing www.kdhmrv1ows.org/ag-vfe-ucvk-40/ For informational purposes only. Not to replace the advice of your health care provider. Copyright ?? 2007 [facility]. All rights reserved. Clinically reviewed by the System Operations Leadership team. [employer] [id number] - REV 06/04. * Attachments The following attachments cannot be sent through Care Everywhere. * : High Blood Pressure (Maltese) documented in this encounter Progress Notes * [...] and OB visits with her doctor in [place] and she prefers to follow with them and return to [place] for her induction. OB Hx: OB History [...] patient. Delivery is recommended at [facility]. Cardiology consultation and echocardiogram is recommended immediately [...] between [facility] and local OB clinic. Delivery planning: - [...] concerns. Patient reports she was seen in [place] last Sunday 08/27 for N/V and dizziness. She states she was given IV fluids, zofran, and an Rx for omeprazole. Ptdoing well today. Pt is scheduled for weekly BPP/OB visits in [place] on Fridays. Dr. Parra reviewed US. Sue [...] Description 09/28/2023 7:30 AM CDT Appointment [facility] Birth[facility] [address] [place] [phone] documented as of this encounter Procedures [...] Xpert GBS LB Assay, performed on the [employer]?? Instrument Systems, is a qualitative in vitro [...] settings. The device is not intended for brgto-dy-wpeo use. Sue Sahni CNM LAB - MICRO GENE RAL ORDERABLES [facility] Inf. Diseases Diag. Lab [address] [facility] [place] [address] documented in this encounter Visit Diagnoses Diagnosis Supervision of high risk in third trimester- Primary Unspecified high-risk complicated by congenital heart disease, single or unspecified fetus documented in this encounter Additional Health Concerns Assessment Noted Time PHQ-9 Depression Total Score: 0 08/19/19 24 12:54 PM CDT documented as of this encounter Care Teams Survey Field Technician Relationship Specialty Start Date End Date No Ref-Primary, Physician PCP - General 05/08/23 documented as of this encounter
--- OUTSIDE RECORDS SUMMARY | 2023-09-18 12:54 | XMS_ITS | Encounter Summary ---
Author Organization [place] Address [facility] [place] [address] Care Team Providers Care Dough Mixer Operator Name Role Phone No Ref-Primary, Physician Primary Care Provider Reason for Visit * Reason Comments Ultrasound RL2/BPP: CHD, coarctation of aorta Encounter Details Date Type Department Care Team (Late st Contact Info) Description 08/31/2023 2:45 PM CDT Office Visit [facility] Maternal Medicine Center [place] [address] [place], [place] [phone] Hetal Parra MD [address] [place] [address] complicated by congenital heart disease, [...] in the Maternal- Medicine Center at the [facility] today. For a detailed report of the ultrasound examination, please see the ultrasound report which can be found under the imaging tab. If you have questions regarding today's evaluation or if we can be of further service, please contact the Maternal- Medicine Center. Hetal Parra MD Sewing Room Supervisor, WORKDAY SENIOR ASSOCIATE Maternal- Medicine [phone] (Pager) documented in this encounter Plan of Treatment Upcoming Encounters Date Type Department Care Team (Late st Contact Info) Description 09/28/2023 7:30 AM CDT Appointment [facility] Birthplace [address] [place] [phone] documented as of this encounter Visit Diagnoses Diagnosis complicated by congenital heart disease, single or unspecified fetus- Primary documented in this encounter Additional Health Concerns Assessment Noted Time PHQ-9 Depression Total Score: 0 08/19/19 24 12:54 PM CDT documented as of this encounter Care Teams Dough Mixer Operator Relationship Specialty Start Date End Date No Ref-Primary, Physician PCP - General 05/08/23 documented as of this encounter
--- OUTSIDE RECORDS SUMMARY | 2023-09-18 12:54 | XMS_ITS | Encounter Summary ---
Author Organization [place] Address [address] [facility] [place] [address] Care Team Providers Care Rock Worker Name Role Phone No Ref-Primary, Physician Primary Care Provider Reason for Visit * Reason Comments Genetic Counseling CHD * Consultation (Routine: Next available opening) - Pending Review Specialty Diagnoses / Procedures Referred By Contac t Referred To Contact Diagnoses Abnormal ultrasound Swati Hurst MD [address] [address] Referral ID Status Reason Start Date Expiration Date V isits Requested Visits Authorized [id number] Pending Review 08/04/2023 08/03/2024 1 1 Encounter Details Date Type Department Care Team (Late st Contact Info) Description 08/31/2023 3:00 PM CDT Office Visit [facility] [place] [address] [place], [place] [phone] Hetal Parra MD [address] [facility] [address] [place], [place] [address] Adriana Gómez GC [address] [place] [address] Abnormal ultrasound (Primary Dx); Encounter [...] Gómez GC - 08/31/2023 3:00 PM CDT [facility] Medicine [place] Genetic Counseling Consult Patient: Rosemary Osborne Date of : 2000 Date of Service: 08/31/23 Rosemary Osborne was seen at [facility] for genetic consultation to discuss the [...] with limited G-bands on cord blood testing ([id number]). We discussed possible results including positive, negative, and uncertainty. Array cannot completely rule outthe possibility of all genetic conditions such as single gene disorders. It was a pleasure to be involved with Rosemary 's care. Pcgm-nz-jofm time of the meeting was <15 minutes. Adriana Gómez MS, [facility] Licensed Genetic Counselor [facility] Pager: [phone] Office: [phone] documented in this encounter Plan of Treatment Upcoming Encounters Date Type Department Care Team (Late st Contact Info) Description 09/28/2023 7:30 AM CDT Appointment Eldon Starr [facility] Birthplace [address] [place] [address] [place] [phone] documented as of this encounter Visit Diagnoses Diagnosis Abnormal ultrasound- Primary Abnormal findings on screening Encounter for procreative genetic counseling and testing documented in this encounter Additional Health Concerns Assessment Noted Time PHQ-9 Depression Total Score: 0 08/19/19 12:54 PM CDT documented as of this encounter Care Teams Rock Worker Relationship Specialty Start Date End Date No Ref-Primary, Physician PCP - General 05/08/23 documented as of this encounter
--- OUTSIDE RECORDS SUMMARY | 2023-09-18 12:55 | XMS_ITS | Encounter Summary ---
Author Organization [place] Address [address] [facility] [address] Care Team Providers Care Secretarial Stenographer Name Role Phone No Ref-Primary, Physician Primary Care Provider Reason for Referral * Diagnostic Imaging Ultrasound (Routine) - Pending Review Specialty Diagnoses / Procedures Referred By Contac t Referred To Contact Radiology. Diagnoses related condition, antepartum Procedures [facility] Jair Patel MD [address] [facility] [address] [address] Referral ID Status Reason Start Date Expiration Date V isits Requested Visits Authorized [id number] Pending Review 08/04/2023 08/03/2024 1 1 Reason for Visit * Diagnostic Imaging Ultrasound (Routine) - Pending Review Specialty Diagnoses / Procedures Referred By Contac t Referred To Contact Radiology. Diagnoses related condition, antepartum Procedures [facility] Jair Patel MD [address] [address] Referral ID Status Reason Start Date Expiration Date V isits Requested Visits Authorized [id number] Pending Review 08/04/2023 08/03/2024 1 1 Encounter Details Date Type Department Care Team (Latest Contact Info) Description 08/19/2023 11:45 AM CDT - 08/19/2023 11:59 PM CDT Hospital Encounter [facility] Maternal Medicine [facility] [address] [place] [address] Leyda Guzman MD [address] [place] [address] related condition, antepartum Discharge Disposition: [...] Info) Description 09/28/2023 7:30 AM CDT Appointment [facility] Birthplace [address] [place] [phone] documented as of this encounter Procedures Procedure Name Priority Date/Time Associated Diagnosis Comments [facility] BPP SINGLE Routine 08/19/2023 12:31 PM CDT related condition, antepartum documented in this encounter Results * [facility] BPP Single (08/19/2023 12:31 PM CDT) Anatomical Region Laterality Modality Ultrasound 08/19/2023 12:1 1 PM CDT Impressions 08/19/2023 4:47 PM CDT IMPRESSION ----- 1) Estrada intrauterine at 33w 5d gestational age. 2) The BPP is reassuring. 3) The amniotic fluid volume appeared normal. Narrative 08/19/2023 4:47 PM CDT ?BPP ----- Pat. Name: RA NARAYAN ? Study Date: ??08/19/2023 12:11pm Pat. NO: ??[id number] ?Referring ??MD: GUDELIA BARILLAS Site: ??[facility] ? Oyster Unloader: Molly Bernal RDMS : ??2000 ?Age: ?? [...] NARAYAN Study Date: 08/19/2023 12:11pm Pat. NO: [id number] Referring MD: GUDELIA BARILLAS Site: [facility] Oyster Unloader: Molly Bernal RDMS : 2000 Age: 22 [...] fluid volume appeared normal. Jair Sanchez MD [facility] ORDERABL ES documented in this encounter Visit Diagnoses Diagnosis related condition, antepartum documented in this encounter Additional Health Concerns Assessment Noted Time PHQ-9 Depression Total Score: 0 08/19/19 24 12:54 PM CDT documented as of this encounter Care Teams Secretarial Stenographer Relationship Specialty Start Date End Date No Ref-Primary, Physician PCP - General 05/08/23 documented as of this encounter
--- OUTSIDE RECORDS SUMMARY | 2023-09-18 12:55 | XMS_ITS | Encounter Summary ---
Author Organization [place] Address [address] [facility] [place] [address] Care Team Providers Care Casino Porter Name Role Phone No Ref-Primary, Physician Primary Care Provider Reason for Referral * Consultation (Routine: Next available opening) - Pending Review Specialty Diagnoses / Procedures Referred By Contac t Referred To Contact Diagnoses Supervision of high risk in third trimester complicated by congenital heart disease, single or unspecified fetus Sue Sahni CNM [address] [address] Referral ID Status Reason Start Date Expiration Date V isits Requested Visits Authorized [id number] Pending Review 08/19/2023 08/18/2024 1 1 Question Answer OB Visit? Yes Comments Ob visit Reason for Visit * Reason Comments Care Ob visit 33w5d; feta l CHD; coarctation of aorta * Consultation (Routine: Next available opening) - Pending Review Specialty Diagnoses / Procedures Referred By Contac t Referred To Contact Diagnoses related condition, antepartum Jair Sanchez MD [address] [facility] [address] [place] [address] Referral ID Status Reason Start Date Expiration Date V isits Requested Visits Authorized [id number] Pending Review 08/04/2023 08/03/2024 2 2 Encounter Details Date Type Department Care Team (Late st Contact Info) Description 08/19/2023 9:30 AM CDT Office Visit [facility] [place] [address] [place] [address] Sue Sahni CNM [address] [place] [address] Supervision of high risk in third trimester [...] Transfer of care: - Oriented patient to [facility] practice. Reviewed that [facility] is a multidisciplinary institution and her care will be collaborative in fashion with [facility] doctors, CNM, residents, fellows, and S clinic [...] - Weekly BPPs to be shared between [facility] and local OB clinic Delivery planning: - [...] given and discussed. Plan weekly BPP in [place]. Pt will return to [facility] on 08/30 for RL2/BPP/Ob visit/GC. Pt discharged stableand ambulatory. Shaunna Nolasco RN documented in this encounter Plan of Treatment Upcoming Encounters Date Type Department Care Team (Late st Contact Info) Description 09/28/2023 7:30 AM CDT Appointment [facility] Birthplace [address] [place] [phone] Scheduled Referrals Name Type Priority Associated Diagnoses Orde r Schedule [facility] Office Visit Referral Routine: Next available opening [...] documented as of this encounter Care Teams Casino Porter Relationship Specialty Start Date End Date No Ref-Primary, Physician PCP - General 05/08/23 documented as of this encounter
--- OUTSIDE RECORDS SUMMARY | 2023-09-18 12:55 | XMS_ITS | Encounter Summary ---
Author Organization [place] Address [address] [place] [address] Care Team Providers Care Teaching Music Lessons Name Role Phone No Ref-Primary, Physician Primary Care Provider Reason for Referral * (Routine) - Closed Specialty Diagnoses / Procedures Referred By Contac t Referred To Contact Cardiology Diagnoses Anomaly of heart of fetus affecting , antepartum, single or unspecified fetus Procedures Echo (TTE) Complete Yifan Clancy MD [address] [place] [address] [facility] [address] [place] [phone] Referral ID Status Reason Start Date Expiration Date Visits Re quested Visits Authorized [id number] Closed 07/14/2023 07/06/2024 1 1 Reason for Visit * (Routine) - Closed Specialty Diagnoses / Procedures Referred By Contac t Referred To Contact Cardiology Diagnoses Anomaly of heart of fetus affecting , antepartum, single or unspecified fetus Procedures Echo (TTE) Yifan Gamez MD [address] [place] [address] [facility] [address] [place] [phone] Referral ID Status Reason Start Date Expiration Date Visits Re quested Visits Authorized [id number] Closed 07/14/2023 07/06/2024 1 1 Encounter Details Date Type Department Care Team (Latest Contact Info) Description 07/14/2023 7:45 AM CDT - 07/14/2023 11:59 PM CDT Hospital Encounter [facility] [address] [place] [phone] Yifan Clancy MD [address] [place] [address] Anomaly of heart of fetus affecting , [...] CDT Appointment [facility] [address] [place] [phone] documented as of this encounter Procedures Procedure Name Priority Date/Time Associated Diagnosis Comments ECHO COMPLETE Routine 07/14/2023 1 0:10 AM CDT Anomaly of heart of fetus affecting , antepartum, single or unspecified fetus documented in this encounter Results * ECHO COMPLETE (07/14/2023 10:10 AM CDT) Anatomical Region Laterality Modality Echocardiography 07/14/2023 8:18 AM CDT Narrative 07/14/2023 10:23 AM CDT [id number]^ASTON^YIFAN ? Study ID: [id number] ?[facility] ?[facility] ?[address] ?[place] [address] ? Echocardiogram Name: GRZEGORZ AN RA Gutierres [...] blood. pressure gradient. Delivery is recommended at [facility]. Cardiology consultation and echocardiogram is recommended [...] to the left atrium. There is laminar qdfwd-er-ytyn shunting across the foramen ovale. Atrioventricular valves: [...] Note Carlos Alberto Ott MD - 07/14/2023 [id number]^ASTON^YIFAN Study ID:[id number] [facility] Children's [address] [address] Echocardiogram Name: GRZEGORZ AN RA Gutierres Study Date: 07/14/2023 08:18 AM Patient Location: [facility] Gender: Female Patient Class:Outpatient [...] pressure gradient. Delivery is recommended [facility]. Cardiology consultation and echocardiogram isrecommended [...] in to the left atrium. There is nszogzeagcmv-mo-jmpm shunting across the foramen ovale. Atrioventricular valves: [...] fetus documented in this encounter Care Teams Teaching Music Lessons Relationship Specialty Start Date End Date No Ref-Primary, Physician PCP - General 05/08/23 documented as of this encounter
--- OUTSIDE RECORDS SUMMARY | 2023-09-18 12:55 | XMS_ITS | Encounter Summary ---
Author Organization [place] Address [address] [place] [address]. [place] [address] Care Team Providers Care Audio Video Tech Name Role Phone No Ref-Primary, Physician Primary Care Provider Reason for Referral * (Routine) - Closed Specialty Diagnoses / Procedures Referred By Contac t Referred To Contact Cardiology Diagnoses Anomaly of heart of fetus affecting , antepartum, single or unspecified fetus Procedures Echo (TTE) Complete Yifan Clancy MD [address] [place] [address] [facility] [address] [place] [phone] Referral ID Status Reason Start Date Expiration Date Visits Re quested Visits Authorized [id number] Closed 07/14/2023 07/06/2024 1 1 Encounter Details Date Type Department Care Team (Late st Contact Info) Description 07/07/2023 Orders Only [facility] [address] [place] [address] [facility] [address] [place] [address] Yifan Clancy MD [address] [place] [address] Anomaly of heart of fetus affecting [...] Info) Description 09/28/2023 7:30 AM CDT Appointment [facility] Birthplace [address] [place] [address] documented as of this encounter Results * ECHO COMPLETE (07/14/2023 10:10 AM CDT) Anatomical Region Laterality Modality Echocardiography 07/14/2023 8:18 AM CDT Narrative 07/14/2023 10:23 AM CDT [id number]^CLANCY^YIFAN ? Study ID: [id number] ?[facility] ?[facility] ?[address] ?[place] [address] ? Echocardiogram Name: GRZEGORZ RA AN Study [...] blood. pressure gradient. Delivery is recommended at [facility]. Cardiology consultation and echocardiogram is recommended [...] to the left atrium. There is laminar tevhe-fu-xtdk shunting across the foramen ovale. Atrioventricular valves: [...] Note Carlos Alberto Ott MD - 07/14/2023 [id number]^CLANCY^YIFAN Study ID:[id number] [facility]'s [address] [address] Echocardiogram Name: RA NARAYAN Study Date: 07/14/2023 [...] limb blood. pressure gradient. Delivery is recommended [facility]. Cardiology consultation and echocardiogram isrecommended immediately [...] in to the left atrium. There is hddqopvrroau-hu-lgwq shunting across the foramen ovale. Atrioventricular valves: [...] fetus documented in this encounter Care Teams Audio Video Tech Relationship Specialty Start Date End Date No Ref-Primary, Physician PCP - General 05/08/23 documented as of this encounter
--- OUTSIDE RECORDS SUMMARY | 2023-09-18 12:55 | XMS_ITS | Encounter Summary ---
Author Organization [place] Address [address] [facility] [place] [address] Care Team Providers Care Clinical Nursing Professor Name Role Phone No Ref-Primary, Physician Primary Care Provider Reason for Referral * Diagnostic Imaging Ultrasound (Routine) - Pending Review Specialty Diagnoses / Procedures [facility] Referred To Contact Radiology. Diagnoses abnormality affecting management of mother, single or unspecified fetus Procedures [facility] US Comprehensive Single F/U Swati Hurst MD [address] [place] [address] Referral ID Status Reason Start Date Expiration Date V isits Requested Visits Authorized [id number] Pending Review 06/01/2023 05/31/2024 1 1 Reason for Visit * Diagnostic Imaging Ultrasound (Routine) - Pending Review Specialty Diagnoses / Procedures Referred By Contac Referred To Contact Radiology. Diagnoses abnormality affecting management of mother, single or unspecified fetus Procedures [facility] US Comprehensive Single F/U Swati Hurst MD [address] [facility] [address] [place] [address] Referral ID Status Reason Start Date Expiration Date V isits Requested Visits Authorized [id number] Pending Review 06/01/2023 05/31/2024 1 1 Encounter Details Date Type Department Care Team (Latest Contact Info) Description 06/29/2023 2:15 PM CDT - 06/29/2023 11:59 PM CDT Hospital Encounter [facility] [place] [address] [place] [address] Swati Hurst MD [address] [place] [address] [address] [place] [address] abnormality affecting management of mother, [...] Info) Description 09/28/2023 7:30 AM CDT Appointment [facility] Birthplace [address] [place] [phone] documented as of this encounter Procedures Procedure Name Priority Date/Time Associated Diagnosis Comments [facility] US COMPREHENSIVE SINGLE F/U Routine 06/29/2023 2:58 PM CDT abnormality affecting management of mother, single or unspecified fetus documented in this encounter Results * [facility] US Comprehensive Single F/U (06/29/2023 [...] ? Study Date: ??06/29/2023 2:20pm Pat. NO: ??[id number] ?Referring ??: FRANCIA GILMAN Site: ??[facility] ? [employer] Supervisor: Mumtaz Ventura RDMS : ??2000 ?Age: ?? [...] 2 lb 3 ?oz EFW by ?Hadlock ([id number]-[id number]-FL) Head / Face / Neck Biometry: Medical Research Tech ? 4.6 ? mm CM ?4.7 ? mm ANATOMY ----- The following structures appear abnormal: Heart / Thorax ?4-chamber view: left side of heart is smaller than the right. . 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 . 3-vessel view: small aorta. 2-tjjhyg-wkwdgap view: small aorta . The following structures [...] on PGE. Plan for repeat assessment with [facility] of cardiac anatomy and growth in 4 weeks. She will likely need to delivery at [place], however, will plan to reevaluate following her [...] the patient (reviewing medical records/tests), in direct dwno-rq-tnka contact with the patient during her visit with the majority spent counseling and discussing the plan of care and documenting the visit in the electronic medical record. Please see note for details. Procedure Note Swati Hurst MD - 07/03/2023 Comp Follow Up ----- Pat. Name: RA NARAYAN Study Date: 06/29/2023 2:20pm Pat. NO: [id number] Referring MD: FRANCIA GILMAN Site: [facility] [employer] Supervisor: Mumtaz Ventura RDMS : 2000 Age: 22 [...] 2 lb 3 oz EFW by Hadlock (SHP-UQ-UH-FL) Head / Face / Neck Biometry: Medical Research Tech 4.6 mm CM 4.7 mm ANATOMY ----- The following structures appear abnormal: Heart / Thorax 4-chamber view: left side of heart issmaller than the right. . LVOT view: mitral valve hypoplasia . Aortic archview: hypoplasia of aortic isthmus . 3-vessel view: small aorta.5-zdzquf-zlvankn view: small aorta . The following structures [...] known cardiac [facility]. 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 Per cardiology, this anatomy may be dependenton PGE. Plan for repeat assessment with [facility] of cardiac anatomy and growth in4 weeks. She will likely need to delivery at [place], however, will planto reevaluate following her next [...] see the patient (reviewing medical records/tests), in zdwzdspjbh-um-hkay contact with the patient during her visit [...] fluid volume appeared normal. Swati Hurst MD [facility] documented in this encounter Visit Diagnoses Diagnosis abnormality affecting management of mother, single or unspecified fetus documented in this encounter Care Teams Clinical Nursing Professor Relationship Specialty Start Date End Date No Ref-Primary, Physician PCP - General 05/08/23 documented as of this encounter
--- OUTSIDE RECORDS SUMMARY | 2023-09-18 12:55 | XMS_ITS | Encounter Summary ---
Author Organization [place] Address [address] [place] [address] Care Team Providers Care Managed Services Sales Consultant Name Role Phone No Ref-Primary, Physician Primary Care Provider Encounter Details Date Type Department Care Team ([facility] st Contact Info) Description 08/19/2023 Office Visit [facility] Services - Heart & Vascular Service Line [address] [place] [phone] Yonatan Black MD [facility] [address] [address] cardiac disease affecting , single or unspecified [...] pleasure of seeing Rosemary Osborne at the [facility] in [place] on 08/19/2023 in ongoing consultation for echocardiography [...] anatomy, physiology, expected course, and need for post-marianela confirmation. The cardiac anatomy is expected to [...] contact me or the Cardiology team at [facility] with any questions or concerns. I spent a total of 60 minutes on the date of the encounter doing chart review, patient history, documentation, counseling, and coordinating care. Yonatan Black MD Pediatric Cardiology [facility] Review of the result(s) of each unique test - echocardiogram documented in this encounter Plan of Treatment Upcoming Encounters Date Type Department Care Team (Late st Contact Info) Description 09/28/2023 7:30 AM CDT Appointment [facility] Birthplace [address] [place] [phone] documented as of this encounter Visit Diagnoses Diagnosis cardiac disease affecting , single or unspecified fetus- Primary documented in this encounter Additional Health Concerns Assessment Noted Time PHQ-9 Depression Total Score: 0 08/19/19 12:54 PM CDT documented as of this encounter Care Teams Managed Services Sales Consultant Relationship Specialty Start Date End Date No Ref-Primary, Physician PCP - General 05/08/23 documented as of this encounter
--- OUTSIDE RECORDS SUMMARY | 2023-09-18 12:55 | XMS_ITS | Encounter Summary ---
Author Organization [place] Address [address] [place] [address]. [place] [address] Care Team Providers Care Weeder Name Role Phone No Ref-Primary, Physician Primary Care Provider Hetal Parra MD Unavailable [phone] Encounter Details Date Type Department Care Team (Late st Contact Info) Description 05/21/2023 MyC Medical Advice [facility] [address] [place] [address] Clinic [address] [place] [address] Kym Little, RN Social History [...] 7:30 AM CDT Appointment [facility]place [address] [place] [phone] documented as of this encounter Visit Diagnoses Not on filedocumented in this encounter Care Teams Weeder Relationship Specialty Start Date End Date No Ref-Primary, Physician PCP - General 05/08/23 Hetal Parra MD [address] [place] [address] Assigned OBGYN Provider 09/06/23 documented as of this encounter
--- OUTSIDE RECORDS SUMMARY | 2023-09-18 12:55 | XMS_ITS | Encounter Summary ---
Author Organization [place] Address [address] [place] [address] Care Team Providers Care Biztalk Consultant Name Role Phone No Ref-Primary, Physician [...] Info) Description 09/28/2023 7:30 AM CDT Appointment [facility] Birthplace [address] [place] [address] documented as of this encounter Visit Diagnoses Not on filedocumented in this encounter Care Teams Biztalk Consultant Relationship Specialty Start Date End Date No Ref-Primary, Physician PCP - General 05/08/23 documented as of this encounter
--- OUTSIDE RECORDS SUMMARY | 2023-09-18 12:55 | XMS_ITS | Encounter Summary ---
Author Organization [place] Address [address] [facility] [place] [address] Care Team Providers Care Certified Orthoptist Name Role Phone No Ref-Primary, Physician Primary Care Provider Reason for Visit * Reason Comments Ultrasound L2- CHD Encounter Details Date Type Department Care Team (Late st Contact Info) Description 07/31/2023 2:45 PM CDT Office Visit [facility] [place] [address] [facility] [address] [place] [address] Jair Sanchez MD [address] [place] [address] complicated by congenital heart disease, [...] for details of today's US at the [facility]. Jair Sanchez MD Maternal- Medicine documented [...] 09/28/2023 7:30 AM CDT Appointment [facility] Birthplace [address] [place] [phone] documented as of this encounter Visit Diagnoses Diagnosis complicated by congenital heart disease, single or unspecified fetus- Primary documented in this encounter Care Teams Certified Orthoptist Relationship Specialty Start Date End Date No Ref-Primary, Physician PCP - General 05/08/23 documented as of this encounter
--- OUTSIDE RECORDS SUMMARY | 2023-09-18 12:55 | XMS_ITS | Encounter Summary ---
Author Organization [place] Address [address] [facility] [place] [address] Care Team Providers Care Aerial Sprayer Name Role Phone No Ref-Primary, Physician Primary Care Provider Reason for Referral * Consultation (Routine: Next available opening) - Pending Review Specialty Diagnoses / Procedures Referred By Contmaile t Referred To Contact Diagnoses Abnormal ultrasound Swati Hurst MD [address] [facility] [address] [place] [address] Referral ID Status Reason Start Date Expiration Date V isits Requested Visits Authorized [id number] Pending Review 08/04/2023 08/03/2024 1 1 Encounter Details Date Type Department Care Team (Late st Contact Info) Description 08/04/2023 Orders Only [facility] M[facility] [place] [address] [place] [address] Louise Haley GC [address] [place], [place] [phone] Abnormal ultrasound (Primary Dx) Social History Tobacco [...] genetic counseling to be added at upcoming [facility] appointment to review recommendation with patient. Louise Haley MS, [facility] Licensed Genetic Counselor [facility] Maternal [email or web address] documented in this encounter Plan of Treatment Upcoming Encounters Date Type Department Care Team (Late st Contact Info) Description 09/28/2023 7:30 AM CDT Appointment [facility] Birthplace [address] [place] [phone] Scheduled Referrals Name Type Priority Associated Diagnoses Orde r Schedule [facility] Genetic Counseling Referral Routine: Next available opening Abnormal ultrasound Expected: 08/04/2023 (Approximate), Expires: 08/03/2024 documented as of this encounter Visit Diagnoses Diagnosis Abnormal ultrasound- Primary Abnormal findings on screening documented in this encounter Care Teams Aerial Sprayer Relationship Specialty Start Date End Date No Ref-Primary, Physician PCP - General 05/08/23 documented as of this encounter
--- OUTSIDE RECORDS SUMMARY | 2023-09-18 12:55 | XMS_ITS | Encounter Summary ---
Author Organization [place] Address [address] [place] [address] Care Team Providers Care Slot Floor Attendant Name Role Phone No Ref-Primary, Physician Primary Care Provider Reason for Referral * (Routine) - Closed Specialty Diagnoses / Procedures Referred By Adonis t Referred To Contact Cardiology Diagnoses Anomaly of heart of fetus affecting , antepartum, single or unspecified fetus Procedures Echo (TTE) Complete Amor Leonard MD [address] [place] [address] [facility] [address] [place] [phone] Referral ID Status Reason Start Date Expiration Date Visits Re quested Visits Authorized [id number] Closed 08/19/2023 08/18/2024 1 1 Reason for Visit * (Routine) - Closed Specialty Diagnoses / Procedures Referred By Contac t Referred To Contact Cardiology Diagnoses Anomaly of heart of fetus affecting , antepartum, single or unspecified fetus Procedures Echo (TTE) Amor Anderson MD [address] [place] [address] [facility] [address] [place] [phone] Referral ID Status Reason Start Date Expiration Date Visits Re quested Visits Authorized [id number] Closed 08/19/2023 08/18/2024 1 1 Encounter Details Date Type Department Care Team (Latest Contact Info) Description 08/19/2023 9:25 AM CDT - 08/19/2023 11:44 AM CDT Hospital Encounter [facility] [address] [place] [phone] Leyda Guzman MD [address] [place] [address] Urmfmusfet Anomaly of heart of [...] Description 09/28/2023 7:30 AM CDT Appointment [facility] [address] [place] [phone] documented as of this encounter Procedures Procedure Name Priority Date/Time Associated Diagnosis Comments ECHO COMPLETE Routine 08/19/2023 1 1:23 AM CDT Anomaly of heart of fetus affecting , antepartum, single or unspecified fetus documented in this encounter Results * ECHO COMPLETE (08/19/2023 11:23 AM CDT) Anatomical Region Laterality Modality Ultrasound 08/19/2023 10:5 5 AM CDT Narrative 08/20/2023 8:33 AM CDT [id number]^LEONARD^KAVISHA ? Study ID: [id number] ?[facility] ?[facility] ?[address] ?[place] [address] ? Echocardiogram Name: RA NARAYAN Study Date: [...] date: 10/02/2023. Gestational age: 33w5d. Delivery at: [facility]. Specific Indication: echocardiogram performed for suspected coarctation [...] to the patient. Delivery is recommended at [facility]. Cardiology consultation and echocardiogram is [...] to the left atrium. There is laminar szltf-df-cqda shunting across the foramen ovale. Atrioventricular valves: [...] Procedure Note Yonatan Black MD - 08/20/2023 [id number]^HORACIO^AMOR Study ID:[id number] [facility] [place] [address] Echocardiogram Name: GRZEGORZ AN, RA L Study Date: 08/19/2023 10:55 AM Patient Location:[facility] Gender: Female Patient Class:Outpatient : [id number] Age: 22 yrs Ordering Provider: AMOR LEONARD Referring Provider: FRANCIA GILMAN Performed By: Fabiola Sahni Physician: Yonatan Black MD Reason For Study: Anomaly of heart of fetus affecting ,antepartum, singl Data: Number of fetuses: This is a law gestation. Duedate: 10/02/2023. Gestational age: 33w5d. Delivery at: [facility]. Specific Indication: echocardiogram performed for suspected coarctation [...] to the patient. Delivery is recommended at [facility]. Cardiology consultation and echocardiogram is [...] in to the left atrium. There is iocnihfgjukd-fd-bmpk shunting across the foramen ovale. Atrioventricular valves: [...] documented as of this encounter Care Teams Slot Floor Attendant Relationship Specialty Start Date End Date No Ref-Primary, Physician PCP - General 05/08/23 documented as of this encounter
--- OUTSIDE RECORDS SUMMARY | 2023-09-18 12:55 | XMS_ITS | Encounter Summary ---
Author Organization [place] Address [facility] [place] [address] Care Team Providers Care Motion Graphics Designer Name Role Phone No Ref-Primary, Physician Primary Care Provider Reason for Visit * Reason Onset Date Comments Appointment 08/03/2023 Encounter Details Date Type Department Care Team (Late st Contact Info) Description 08/03/2023 Telephone [facility] [place] [address] [place] [address] Shaunna Nolasco, RN Appointment Social History Tobacco [...] appointments, weekly BPP, visits, and delivery at [facility]. Offered patient to move echo from 08/10 to 08/11 to coordinate a BPP and visit with MFM coordinator at [place]. Pt will call back after checking with her spouse. Shaunna Nolasco RN documented in this encounter Plan of Treatment Upcoming Encounters Date Type Department Care Team (Late st Contact Info) Description 09/28/2023 7:30 AM CDT Appointment Eldon Starr [facility] Birthplace [address] [facility] [place] [phone] documented as of this encounter Visit Diagnoses Not on filedocumented in this encounter Care Teams Motion Graphics Designer Relationship Specialty Start Date End Date No Ref-Primary, Physician PCP - General 05/08/23 documented as of this encounter
--- OUTSIDE RECORDS SUMMARY | 2023-09-18 12:55 | XMS_ITS | Encounter Summary ---
Author Organization [place] Address [address] [facility] [place] [address] Care Team Providers Care Implementation Specialist Name Role Phone No Ref-Primary, Physician Primary Care Provider Reason for Referral * Diagnostic Imaging Ultrasound (Routine) - Pending Review Specialty Diagnoses / Procedures Referred By Contac t Referred To Contact Radiology. Diagnoses Congenital heart defect Procedures [facility] US Comprehensive Single F/U Swati Hurst MD [address] [place] [address] Referral ID Status Reason Start Date Expiration Date V isits Requested Visits Authorized [id number] Pending Review 06/29/2023 06/28/2024 1 1 Reason for Visit * Reason Comments Ultrasound RL2-CHD Encounter Details Date Type Department Care Team (Late st Contact Info) Description 06/29/2023 2:45 PM CDT Office Visit [facility] Maternal Medicine [facility] [place] [address] [facility] [address] [place] [address] Swati Hurst MD [address] [place] [address] Congenital heart defect (Primary Dx) [...] 06/29/2023 2:45 PM CDT Patient presents to [facility] for RL2 at 26w3d due to CHD. Positive movement. Denies LOF, vaginal bleeding or cramping/contractions. SBAR given to [facility] , see their note in Epic. documented in this encounter Plan of Treatment Upcoming Encounters Date Type Department Care Team (Late st Contact Info) Description 09/28/2023 7:30 AM CDT Appointment [facility]place [address] [place] [phone] documented as of this encounter Results * [facility] US Comprehensive Single F/U (07/31/2023 [...] ? Study Date: ??07/31/2023 2:19pm Pat. NO: ??[id number] ?Referring ??MD: FRANCIA GILMAN Site: ??[place] ? Helminthologist: Justyna Calixto RDMS : ??2000 ?Age: ?? [...] lb 11 ? oz EFW by ?Hadlock (UER-AR-HN-FL) Head / Face / Neck Biometry: Volunteer Services Manager ? 4.0 ? mm CM ?5.2 ? mm ANATOMY ----- The following structures appear abnormal: Heart / Thorax ?4-chamber view: See Echo report by [facility]iology from 05/20/2023. LVOT view. 3-vessel view. 7-pewfev-xjhpdvj view. The following structures appear normal: Head [...] We will plan to reassess growth at [facility] in 4 weeks. Return to [...] NARAYAN Study Date: 07/31/2023 2:19pm Pat. NO: [id number] Referring MD: FRANCIA GILMAN Site: [facility] Helminthologist: Justyna Calixto RDMS : 2000 Age: 22 [...] 3 lb 11 oz EFW by Hadlock (IBU-AO-TP-FL) Head / Face / Neck Biometry: Volunteer Services Manager 4.0 mm CM 5.2 mm ANATOMY ----- The following structures appear abnormal: Heart / Thorax 4-chamber view: See Echo reportby [facility] from 05/20/2023. LVOT view. 3-vessel view.5-vkwztg-yamufps view. The following structures appear normal: Head [...] We will plan to reassess growth at [facility] in 4weeks. Return to primary provider [...] fluid volume appeared normal. Swati Hurst MD [facility] US ORDERABLE S documented in this encounter Visit Diagnoses Diagnosis Congenital heart defect- Primary Unspecified congenital anomaly of heart Congenital heart defect Unspecified congenital anomaly of heart documented in this encounter Care Teams Implementation Specialist Relationship Specialty Start Date End Date No Ref-Primary, Physician PCP - General 05/08/23 documented as of this encounter
--- OUTSIDE RECORDS SUMMARY | 2023-09-18 12:55 | XMS_ITS | Encounter Summary ---
Author Organization [place] Address [address] [facility] [place] [address] Care Team Providers Care Uniform Cap Operator Name Role Phone No Ref-Primary, Physician Primary Care Provider Reason for Visit * Reason Comments Consult NICU consult: CHD * Consultation (Routine: Next available opening) - Pending Review Specialty Diagnoses / Procedures Referred By Contac t Referred To Contact Diagnoses related condition, antepartum Jair Sanchez MD [address] [address] Referral ID Status Reason Start Date Expiration Date V isits Requested Visits Authorized [id number] Pending Review 08/04/2023 08/03/2024 2 2 Encounter Details Date Type Department Care Team (Late st Contact Info) Description 08/19/2023 10:00 AM CDT Office Visit [facility] Medicine [facility] [place] [address] [place] [phone] Sue Sahni CNM [address] [facility] [address] [place] [address] related condition, antepartum Social History [...] Osborne and her partner, Aries, in the [facility] clinic at the [facility] for consultation at the request of Dr. [...] Ms. Rosemary Osborne in the NICU at [facility]. Please reach out if there are questions [...] Info) Description 09/28/2023 7:30 AM CDT Appointment [facility] Birthplace [address] [place], [place] [phone] documented as of this encounter Visit Diagnoses Diagnosis related condition, antepartum documented in this encounter Additional Health Concerns Assessment Noted Time PHQ-9 Depression Total Score: 0 08/19/19 24 12:54 PM CDT documented as of this encounter Care Teams Uniform Cap Operator Relationship Specialty Start Date End Date No Ref-Primary, Physician PCP - General 05/08/23 documented as of this encounter
--- OUTSIDE RECORDS SUMMARY | 2023-09-18 12:55 | XMS_ITS | Encounter Summary ---
Author Organization [place] Address [address] [facility] [place] [address] Care Team Providers Care Beading Installer Name Role Phone No Ref-Primary, Physician Primary Care Provider Reason for Referral * Diagnostic Imaging Ultrasound (Routine) - Pending Review Specialty Diagnoses / Procedures Referred By Contac t Referred To Contact Radiology. Diagnoses related condition, antepartum Procedures [facility] US Comprehensive Single F/U Jair Sanchez MD [address] [facility] [address] [place] [address] Referral ID Status Reason Start Date Expiration Date V isits Requested Visits Authorized [id number] Pending Review 08/03/2023 08/02/2024 1 1 Encounter Details Date Type Department Care Team (Late st Contact Info) Description 08/03/2023 Orders Only [facility] M[facility] Medicine Center [place] [address] [place] [address] Shaunna Nolasco RN related condition, antepartum (Primary [...] 09/28/2023 7:30 AM CDT Appointment Danita Starr [facility] Birthplace [address] [place] [address] [place] [phone] documented as of this encounter Results * [facility] Comprehensive Single F/U (08/31/2023 2:52 PM [...] ? Study Date: ??08/31/2023 2:23pm Pat. NO: ??[id number] ?Referring ??: FRANCIA GILMAN Site: ? Fan Mail Editor: Kassie Jackson RDMS : ??2000 ?Age: ?? [...] ?oz Head / Face / Neck Biometry: Spray Gun Operator ?4.8 ? mm CM ? 6.2 ? mm ANATOMY ----- The following structures appear abnormal: Heart / Thorax ?4-chamber view: coarctation of the aorta. LVOT view. 3-mnuwgn-wygvfth view. The following structures appear normal: Head [...] ongoing recommendations. Continue weekly surveillance (scheduled with Left Hand). She is scheduled for induction on 09/27. If you have questions regarding today's evaluation or if we can be of further service, please contact the Maternal- Medicine Center. anomalies may be present but not detected Procedure Note Hetal Parra MD - 09/01/2023 Comp Follow Up ----- Pat. Name: GRZEGORZ FERREIRAJAS RA Study Date: 08/31/2023 2:23pm Pat. NO: [id number] Referring MD: FRANCIA GILMAN Site: Fan Mail Editor: Kassie Jackson RDMS : 2000 Age: 23 [...] 12oz Head / Face / Neck Biometry: Spray Gun Operator 4.8mm CM 6.2mm ANATOMY ----- The following structures appear abnormal: Heart / Thorax 4-chamber view: coarctation of theaorta. LVOT view. 1-bmfzjx-mmrkrun view. The following structures appear normal: Head [...] andongoing recommendations. Continue weekly surveillance (scheduled with Left Hand). She isscheduled for induction on 09/27. If [...] The BPP was 10/21. Jair Sanchez MD [facility] ORDERABL ES documented in this encounter Visit Diagnoses Diagnosis related condition, antepartum- Primary related condition, antepartum documented in this encounter Care Teams Beading Installer Relationship Specialty Start Date End Date No Ref-Primary, Physician PCP - General 05/08/23 documented as of this encounter
--- OUTSIDE RECORDS SUMMARY | 2023-09-18 12:55 | XMS_ITS | Encounter Summary ---
Author Organization [place] Address [address] [facility] [place] [address] Care Team Providers Care French Edge Operator Name Role Phone No Ref-Primary, Physician Primary Care Provider Reason for Visit * Reason Comments Ultrasound BPP: CHD Encounter Details Date Type Department Care Team (Late st Contact Info) Description 08/19/2023 12:15 PM CDT Office Visit [facility] Maternal Medicine Center [place] [address] [place], [place] [address] Leyda Guzman MD [address] [place] [address] complicated by congenital heart disease, [...] 7:30 AM CDT Appointment Eldon Starr [facility] Birthplace [address] [facility] [place] [phone] documented as of this encounter Visit Diagnoses Diagnosis complicated by congenital heart disease, single or unspecified fetus- Primary documented in this encounter Additional Health Concerns Assessment Noted Time PHQ-9 Depression Total Score: 0 08/19/19 12:54 PM CDT documented as of this encounter Care Teams French Edge Operator Relationship Specialty Start Date End Date No Ref-Primary, Physician PCP - General 05/08/23 documented as of this encounter
--- OUTSIDE RECORDS SUMMARY | 2023-09-18 12:55 | XMS_ITS | Encounter Summary ---
Author Organization [place] Address [address] [facility] [place] [address] Care Team Providers Care Diesel Scoop Operator Name Role Phone No Ref-Primary, Physician [...] Info) Description 09/28/2023 7:30 AM CDT Appointment [facility] Birthplace [address] [place] [address] documented as of this encounter Visit Diagnoses Not on filedocumented in this encounter Care Teams Diesel Scoop Operator Relationship Specialty Start Date End Date No Ref-Primary, Physician PCP - General 05/08/23 documented as of this encounter
--- OUTSIDE RECORDS SUMMARY | 2023-09-18 12:55 | XMS_ITS | Encounter Summary ---
Author Organization [place] Address [address] [facility] [address] Care Team Providers Care Tree Fruit And Nut Farming Supervisor Name Role Phone No Ref-Primary, Physician Primary Care Provider Encounter Details Date Type Department Care Team (Late st Contact Info) Description 08/19/2023 Documentation Only [facility] [phone] Edda Ohara LICSW Social History Tobacco Use [...] ADAMARIS met with patient, her partner, and Bed Bug Exterminator today in the [facility] for a NICU Consult. Rosemary knows she is with a boy and they have chosen to name him Aries after his father. Bed Bug Exterminator discussed what is known medically at this time about Aries. Answered parents questions, and discussed what to expect over the first couple of days after Aries is born and admitted to the NICU. ADAMARIS introduced self and role and discussed how ADAMARIS supports families who have babies in the NICU. Also discussed possible options for lodging as Rosemary and Aries live in [place], [place]. ADAMARIS made plan to meet with Rosemary after baby Aries is born to complete a psychosocial assessment and provide supportive intervention. ADAMARIS provided Rosemary and Aries with contact information and encouraged them to be in touch with any questions or needs prior to the of their baby. No additional concerns, questions, or needs identified today. KALEB Holcomb, ROSALINDA Maternal and Child Health Warehouse Forklift Operator M-F 08:00-16:30 on [facility] Office [email or web address] After hours social work can be reached via [employer] After Hours Screen Examiner 1620 to 08 Weekend on-site social work can be reached via [employer] Weekend Onsite 08 to 1630 documented in this encounter Plan of Treatment Upcoming Encounters Date Type Department Care Team (Late st Contact Info) Description 09/28/2023 7:30 AM CDT Appointment [facility] Birthplace [address] [place] [phone] documented as of this encounter Visit Diagnoses Not on filedocumented in this encounter Additional Health Concerns Assessment Noted Time PHQ-9 Depression Total Score: 0 08/19/19 12:54 PM CDT documented as of this encounter Care Teams Tree Fruit And Nut Farming Supervisor Relationship Specialty Start Date End Date No Ref-Primary, Physician PCP - General 05/08/23 documented as of this encounter
--- OUTSIDE RECORDS SUMMARY | 2023-09-18 12:55 | XMS_ITS | Encounter Summary ---
Author Organization [place] Address [address] [facility] [place] [address] Care Team Providers Care Sand Analyst Name Role Phone No Ref-Primary, Physician Primary Care Provider Reason for Visit * Reason Onset Date Comments Appointment 08/04/2023 Encounter Details Date Type Department Care Team (Late st Contact Info) Description 08/04/2023 Telephone [facility] [place] [address] [place] [address] Shaunna Nolasco, RN Appointment Social History Tobacco [...] Phone call to Rosemary to discuss upcoming [facility] appointments and echo. Pt agreed to come to [place] for multiple appointments on 08/18. Plan: Pt will have weekly BPP starting at 32 weeks. These will be done in [place] unless patient is coming to [facility]. Serial growth q 4 weeks. Pt will come to [facility] on 08/18 for NICU consult, ob visit, echo, BPP. Will discuss delivery date and further planning at this visit. Shaunna Nolasco RN documented in this encounter Plan of Treatment Upcoming Encounters Date Type Department Care Team (Late st Contact Info) Description 09/28/2023 7:[address] [facility] Birthplace [address] [place] [address] [place] [phone] documented as of this encounter Visit Diagnoses Not on filedocumented in this encounter Care Teams Sand Analyst Relationship Specialty Start Date End Date No Ref-Primary, Physician PCP - General 05/08/23 documented as of this encounter
--- OUTSIDE RECORDS SUMMARY | 2023-09-18 12:55 | XMS_ITS | Encounter Summary ---
Author Organization [place] Address [address] [place] [address]. [place] [address] Care Team Providers Care Garbage Collector Driver Name Role Phone No Ref-Primary, Physician Primary Care Provider Encounter Details Date Type Department Care Team (Late st Contact Info) Description 07/14/2023 Office Visit [facility] [address] [place] [phone] Carlos Alberto Ott MD [address] [place] [address] [phone] cardiac disease affecting , single or unspecified [...] Ott MD - 07/14/2023 10:20 AM CDT [facility] Consult Note Patient: Rosemary Osborne Date of : 2000 Age: [age] year old Date of Visit: 07/14/2023 PCP: No Ref-Primary, Physician Dear Doctor, I had the pleasure of seeing Rosemary Osborne at the [facility] on 07/14/2023 infetal cardiology consultation for [...] today with Rosemary Osborne and her partner. fixed income trading vice president was denied by patient. I discussed the cardiac anatomy, function,physiology, and plans for intervention following delivery. Based on today's echocardiogram, this will likely be a 2-ventricular repair with an arch repair. The left ventricle appears apex forming andmildly small due to the dilatation of the right ventricle in setting of a coarctation of the aorta.I recommended delivery at [facility], with plans for post-marianela echocardiogram to determine the needsof PGE. I [...] care. I spent approximately 50 minutes in yrbf-hv-lkaw time reviewing the above considerations. Carlos Alberto Ott M.D. Pediatric Cardiology [facility]'[address], 5th floor, [place] [address] documented in this encounter Plan of Treatment Upcoming Encounters Date Type Department Care Team (Late st Contact Info) Description 09/28/2023 7:30 AM CDT Appointment [facility] [address] [place], [place] [address] [phone] documented as of this encounter Visit Diagnoses Diagnosis cardiac disease affecting , single or unspecified fetus- Primary documented in this encounter Care Teams Garbage Collector Driver Relationship Specialty Start Date End Date No Ref-Primary, Physician PCP - General 05/08/23 documented as of this encounter
--- OUTSIDE RECORDS SUMMARY | 2023-09-18 12:55 | XMS_ITS | Encounter Summary ---
Author Organization [place] Address [address] [facility] [place] [address] Care Team Providers Care Superintendent Communications Name Role Phone No Ref-Primary, Physician Primary Care Provider Reason for Referral * Diagnostic Imaging Ultrasound (Routine) - Pending Review Specialty Diagnoses / Procedures Referred By Contac t Referred To Contact Radiology. Diagnoses Congenital heart defect Procedures [facility] Comprehensive Single F/U Swati Hurst MD [address] [place], [place] [address] Referral ID Status Reason Start Date Expiration Date V isits Requested Visits Authorized [id number] Pending Review 06/29/2023 06/28/2024 1 1 Reason for Visit * Diagnostic Imaging Ultrasound (Routine) - Pending Review Specialty Diagnoses / Procedures Referred By Contac t Referred To Contact Radiology. Diagnoses Congenital heart defect Procedures [facility] Comprehensive Single F/U Swati Hurst MD [address] [place], [place] [address] [address] [address] Referral ID Status Reason Start Date Expiration Date V isits Requested Visits Authorized [id number] Pending Review 06/29/2023 06/28/2024 1 1 Encounter Details Date Type Department Care Team (Latest Contact Info) Description 07/31/2023 2:08 PM CDT - 07/31/2023 11:59 PM CDT Hospital Encounter [facility] [place] [address] [facility] [address] [place] [address] Jair Sanchez MD [address] [place] [address] Congenital heart defect Discharge Disposition: [...] 7:30 AM CDT Appointment [facility] [address] [place] [phone] documented as of this encounter Procedures Procedure Name Priority Date/Time Associated Diagnosis Comments [facility] COMPREHENSIVE SINGLE F/U Routine 07/31/2023 2:45 PM CDT Congenital heart defect documented in this encounter Results * [facility] Comprehensive Single F/U (07/31/2023 2:45 PM CDT) [...] ? Study Date: ??07/31/2023 2:19pm Pat. NO: ??[id number] ?Referring ??MD: FRANCIA GILMAN Site: ??[facility] ? Curriculum Director: Justyna Calixto RDMS : ??2000 ?Age: ?? [...] lb 11 ? oz EFW by ?Hadlock (GPH-IS-HV-FL) Head / Face / Neck Biometry: Topographical Surveyor ? 4.0 ? mm CM ?5.2 ? mm ANATOMY ----- The following structures appear abnormal: Heart / Thorax ?4-chamber view: See Echo report by [facility] from 05/20/2023. LVOT view. 3-vessel view. 1-uohvro-zjbugfb view. The following structures appear normal: Head [...] RA Study Date: 07/31/2023 2:19pm Pat. NO: [id number] Referring MD: FRANCIA GILMAN Site: [facility] Curriculum Director: Justyna Calixto RDMS : 2000 Age: 22 [...] 3 lb 11 oz EFW by Mecca (AVL-LR-JR-FL) Head / Face / Neck Biometry: Topographical Surveyor 4.0 mm CM 5.2 mm ANATOMY ----- The following structures appear abnormal: Heart / Thorax 4-chamber view: See Echo reportby [facility] from 05/20/2023. LVOT view. 3-vessel view.3-mndpai-rpnwzrm view. The following structures appear normal: Head [...] We will plan to reassess growth at [facility] in 4weeks. Return to primary provider [...] volume appeared normal. Swati Hurst MD G [facility] US ORDERABLE S documented in this encounter Visit Diagnoses Diagnosis Congenital heart defect Unspecified congenital anomaly of heart documented in this encounter Care Teams Superintendent Communications Relationship Specialty Start Date End Date No Ref-Primary, Physician PCP - General 05/08/23 documented as of this encounter
--- OUTSIDE RECORDS SUMMARY | 2023-09-18 12:55 | XMS_ITS | Encounter Summary ---
Author Organization [place] Address [address] [facility] [place] [address] Care Team Providers Care Mark Up Designer Name Role Phone No Ref-Primary, Physician Primary Care Provider Reason for Referral * Diagnostic Imaging Ultrasound (Routine) - Pending Review Specialty Diagnoses / Procedures Referred By Contac t Referred To Contact Radiology. Diagnoses related condition, antepartum Procedures [facility] Comprehensive Single F/U Jair Sanchez MD [address] [place] [address] Referral ID Status Reason Start Date Expiration Date V isits Requested Visits Authorized [id number] Pending Review 08/03/2023 08/02/2024 1 1 Reason for Visit * Diagnostic Imaging Ultrasound (Routine) - Pending Review Specialty Diagnoses / Procedures Referred By Contac t Referred To Contact Radiology. Diagnoses related condition, antepartum Procedures [facility] Comprehensive Single F/U Jair Sanchez MD [address] [place] [address] Referral ID Status Reason Start Date Expiration Date V isits Requested Visits Authorized [id number] Pending Review 08/03/2023 08/02/2024 1 1 Encounter Details Date Type Department Care Team (Latest Contact Info) Description 08/31/2023 2:13 PM CDT - 08/31/2023 11:59 PM CDT Hospital Encounter [facility] [place] [address] [place] [phone] Hetal Parra MD [address] [place], [place] [id number] related condition, antepartum Discharge Disposition: Home or [...] Description 09/28/2023 7:[address] [facility] [address] [place] [phone] documented as of this encounter Procedures Procedure Name Priority Date/Time Associated Diagnosis Comments [facility] COMPREHENSIVE SINGLE F/U Routine 08/31/2023 2:52 PM CDT related condition, antepartum documented in this encounter Results * [facility] Comprehensive Single F/U (08/31/2023 2:52 PM [...] ? Study Date: ??08/31/2023 2:23pm Pat. NO: ??[id number] ?Referring ??: FRANCIA GILMAN Site: ? Automobile Painter: Kassie Jackson RDMS : ??2000 ?Age: ?? [...] ?oz Head / Face / Neck Biometry: Coin Machine Service Repairer ?4.8 ? mm CM ? 6.2 ? mm ANATOMY ----- The following structures appear abnormal: Heart / Thorax ?4-chamber view: coarctation of the aorta. LVOT view. 4-qycqyp-uphdobk view. The following structures appear normal: Head [...] ongoing recommendations. Continue weekly surveillance (scheduled with [facility]). She is scheduled for induction on 09/27. If you have questions regarding today's evaluation or if we can be of further service, please contact the [facility]. anomalies may be present but not detected Procedure Note Hetal Parra MD - 09/01/2023 Comp Follow Up ----- Pat. Name: RA NARAYAN Study Date: 08/31/2023 2:23pm Pat. NO: [id number] Referring MD: FRANCIA GILMAN Site: Automobile Painter: Kassie Jackson RDMS : 2000 Age: 23 [...] 12oz Head / Face / Neck Biometry: Coin Machine Service Repairer 4.8mm CM 6.2mm ANATOMY ----- The following structures appear abnormal: Heart / Thorax 4-chamber view: coarctation of theaorta. LVOT view. 4-jjsypk-tryhozl view. The following structures appear normal: Head [...] with our office. Please see documentation in [facility] for full details from today's visit [...] The BPP was 8/8. Jair Sanchez MD [facility] US ORDERABL ES documented in this encounter Visit Diagnoses Diagnosis related condition, antepartum documented in this encounter Additional Health Concerns Assessment Noted Time PHQ-9 Depression Total Score: 0 08/19/19 24 12:54 PM CDT documented as of this encounter Care Teams Mark Up Designer Relationship Specialty Start Date End Date No Ref-Primary, Physician PCP - General 05/08/23 documented as of this encounter
--- OUTSIDE RECORDS SUMMARY | 2023-09-18 12:55 | XMS_ITS | Encounter Summary ---
Author Organization [place] Address [address] [facility] [place] [address] Care Team Providers Care Engineered Wood Designer Name Role Phone No Ref-Primary, Physician Primary Care Provider Reason for Referral * Consultation (Routine: Next available opening) - Pending Review Specialty Diagnoses / Procedures Referred By Adonis t Referred To Contact Diagnoses related condition, antepartum Jair Sanchez MD [address] [address] Referral ID Status Reason Start Date Expiration Date V isits Requested Visits Authorized [id number] Pending Review 08/04/2023 08/03/2024 2 2 Question Answer OB Visit? Yes Is this a first time OB patient? Yes NICU Consult Yes Comments OBV and NICU consult 08/18 * Diagnostic Imaging Ultrasound (Routine) - Pending Review Specialty Diagnoses / Procedures Referred By Contac t Referred To Contact Radiology. Diagnoses related condition, antepartum Procedures [facility]PP Single Jair Sanchez MD [address] [place] [address] Referral ID Status Reason Start Date Expiration Date V isits Requested Visits Authorized [id number] Pending Review 08/04/2023 08/03/2024 1 1 Encounter Details Date Type Department Care Team (Late st Contact Info) Description 08/04/2023 Orders Only [facility] [place] [address] [place] [address] Shaunna Nolasco RN related condition, antepartum (Primary [...] Description 09/28/2023 7:30 AM CDT Appointment [facility] [address] [place] [phone] Scheduled Referrals Name Type Priority Associated Diagnoses Orde r Schedule [facility] Office Visit Referral Routine: Next available opening related condition, antepartum Weekly for 2 Occurrences starting 08/04/2023 until 08/03/2024 documented as of this encounter Results * [facility] BPP Single (08/19/2023 12:31 PM CDT) Anatomical Region Laterality Modality Ultrasound 08/19/2023 12:1 1 PM CDT Impressions 08/19/2023 4:47 PM CDT IMPRESSION ----- 1) Estrada intrauterine at 33w 5d gestational age. 2) The BPP is reassuring. 3) The amniotic fluid volume appeared normal. Narrative 08/19/2023 4:47 PM CDT ?BPP ----- Pat. Name: RA NARAYAN ? Study Date: ??08/19/2023 12:11pm Pat. NO: ??[id number] ?Referring ??MD: GUDELIA BARILLAS Site: ??[facility] ? Commercial Credit Analyst: Molly Bernal RDMS : ??2000 ?Age: ?? [...] NARAYAN Study Date: 08/19/2023 12:11pm Pat. NO: [id number] Referring MD: GUDELIA BARILLAS Site: [facility] Commercial Credit Analyst: Molly Bernal RDMS : 2000 Age: 22 [...] volume appeared normal. Jair Sanchez MD [facility] ORDERABL ES documented in this encounter Visit Diagnoses Diagnosis related condition, antepartum- Primary related condition, antepartum documented in this encounter Care Teams Engineered Wood Designer Relationship Specialty Start Date End Date No Ref-Primary, Physician PCP - General 05/08/23 documented as of this encounter
--- OUTSIDE RECORDS SUMMARY | 2023-09-18 12:55 | XMS_ITS | Encounter Summary ---
Author Organization [place] Address [address] [facility] [place] [address] Care Team Providers Care Senior Audit Manager Name Role Phone No Ref-Primary, Physician [...] AM CDT Appointment [facility] [address] [place] [address] documented as of this encounter Visit Diagnoses Not on filedocumented in this encounter Care Teams Senior Audit Manager Relationship Specialty Start Date End Date No Ref-Primary, Physician PCP - General 05/08/23 documented as of this encounter
--- OUTSIDE RECORDS SUMMARY | 2023-09-18 12:55 | XMS_ITS | Encounter Summary ---
Author Organization [place] Address [address] [place] [address]. [place] [address] Care Team Providers Care Editorial Clerk Name Role Phone No Ref-Primary, Physician Primary Care Provider Reason for Referral * (Routine) - Closed Specialty Diagnoses / Procedures Referred By Contac t Referred To Contact Cardiology Diagnoses Anomaly of heart of fetus affecting , antepartum, single or unspecified fetus Procedures Echo (TTE) Complete Amor Leonard MD [address] [place] [address] [facility] [address] [place] [phone] Referral ID Status Reason Start Date Expiration Date Visits Re quested Visits Authorized [id number] Closed 08/19/2023 08/18/2024 1 1 Encounter Details Date Type Department Care Team (Late st Contact Info) Description 08/19/2023 Orders Only [facility] [address] [place] [address] Clinic 12th [place] [address] Amor Leonard MD [address] [place] [address] Anomaly of heart of fetus affecting [...] Info) Description 09/28/2023 7:30 AM CDT Appointment [facility] [address] [place] [phone] documented as of this encounter Results * ECHO COMPLETE (08/19/2023 11:23 AM CDT) Anatomical Region Laterality Modality Ultrasound 08/19/2023 10:5 5 AM CDT Narrative 08/20/2023 8:33 AM CDT [id number]^LEONARD^AMOR ? Study ID: [id number] ?[facility] ?[facility] ?[address] ?[place] [address] ? Echocardiogram Name: RA NARAYAN Study Date: 08/19/2023 10:55 AM ?Patient Location: [facility] Gender: Female ? Patient Class: Outpatient : 2000 ?Age: 22 yrs Ordering Provider: AMOR LEONARD Referring Provider: FRANCIA GILMAN Performed By: Fabiola Sahni Physician: Yonatan Black MD Reason For Study: Anomaly of heart of fetus affecting , antepartum, singl Data: Number of fetuses: This is a law gestation. Due date: 10/02/2023. Gestational age: 33w5d. Delivery at: [facility]. Specific Indication: echocardiogram performed for suspected coarctation [...] to the patient. Delivery is recommended at [facility]. Cardiology consultation and echocardiogram is [...] to the left atrium. There is laminar xgnhy-ip-mcxr shunting across the foramen ovale. Atrioventricular valves: [...] Procedure Note Yonatan Black MD - 08/20/2023 [id number]^HORACIO^AMOR Study ID:[id number] [facility] [address] [address] Echocardiogram Name: RA NARAYAN Study Date: 08/19/2023 10:55 AM Patient Location:[facility] Gender: Female Patient Class:Outpatient : 2000 Age: 22 yrs Ordering Provider: AMOR LEONARD Referring Provider: FRANCIA GILMAN Performed By: Fabiola Sahni Physician: Yonatan Black MD Reason For Study: Anomaly of heart of fetus affecting ,antepartum, singl Data: Number of fetuses: This is a law gestation. Duedate: 10/02/2023. Gestational age: 33w5d. Delivery at: [facility]. Specific Indication: echocardiogram performed for suspected coarctation [...] to the patient. Delivery is recommended at [facility]. Cardiology consultation and echocardiogram is [...] in to the left atrium. There is aediurujfghw-ou-uftn shunting across the foramen ovale. Atrioventricular valves: [...] documented as of this encounter Care Teams Editorial Clerk Relationship Specialty Start Date End Date No Ref-Primary, Physician PCP - General 05/08/23 documented as of this encounter
--- OUTSIDE RECORDS SUMMARY | 2023-09-18 12:55 | XMS_ITS | Encounter Summary ---
Author Organization [place] Address [address] [place] [address]. [place] [address] Care Team Providers Care Armature Winder Repairer Name Role Phone No Ref-Primary, Physician Primary Care Provider Hetal Parra MD Unavailable [phone] Encounter Details Date Type Department Care Team (Late st Contact Info) Description 08/17/2023 MyC Medical Advice [facility] [address] [place] [address] Clinic [address] [place] [address] Soumya Rodriguez LPN Social History [...] 7:30 AM CDT Appointment [facility] [address] [place] [phone] documented as of this encounter Visit Diagnoses Not on filedocumented in this encounter Care Teams Armature Winder Repairer Relationship Specialty Start Date End Date No Ref-Primary, Physician PCP - General 05/08/23 [address]etal Parra MD [address] [facility] [address] [place] [address] Assigned OBGYN Provider 09/06/23 documented as of this encounter
--- OUTSIDE RECORDS SUMMARY | 2023-09-18 12:55 | XMS_ITS | Encounter Summary ---
Author Organization [place] Address [facility] [facility] [place] [address] Care Team Providers Care Highway Engineer Name Role Phone No Ref-Primary, Physician [...] Info) Description 09/28/2023 7:30 AM CDT Appointment [facility] [address] [place] [address] documented as of this encounter Visit Diagnoses Not on filedocumented in this encounter Additional Health Concerns Assessment Noted Time PHQ-9 Depression Total Score: 0 08/19/19 24 12:54 PM CDT documented as of this encounter Care Teams Highway Engineer Relationship Specialty Start Date End Date No Ref-Primary, Physician PCP - General 05/08/23 documented as of this encounter
--- OUTSIDE RECORDS SUMMARY | 2023-09-18 12:56 | XMS_ITS | Clinical Summary ---
Author Organization [facility] Address [place], [place] [address] Care Team Providers Care Space Physicist Name Role Phone Anitha Ojeda DO Primary Care Provider [phone] Allergies Active Allergy Reactions Criticality Noted Date Comments [place] Shortness Of Breath,Rash 01/03/2020 Medications Medication Sig [...] Comments Blood Pressure 121/78 02/18/2022 9:36 AM BUSINESS PROGRAMMER Pulse 70 02/18/2022 9:36 AM BUSINESS PROGRAMMER Temperature 37.1 ??C (98.8 ??F) 09/30/2021 1:43 PM CD T Respiratory Rate 14 12/21/2020 8:12 AM CDT Oxygen Saturation 99% 02/18/2022 9:36 AM BUSINESS PROGRAMMER Inhaled Oxygen Concentration - - Weight 82.6 kg (182 lb) 02/18/2022 9:36 AM BUSINESS PROGRAMMER Height 157 cm (5' 1.81) 07/11/2021 8:31 [...] CHLAMYDIA TRACH PROBE Routine 05/20/2021 3:33 PM BUSINESS PROGRAMMER Routine screening for STI (sexually transmitted infection) ANTI HIV 1/2 Routine 06/29/2020 3:20 PM CDT Leukocytosis, unspecified type Thrombocytosis (HC) from Last 3 Months or Most Recently Relevant to Health Maintenance Results * HPV HIGH RISK (09/12/2022 3:00 PM CDT) TYPE 16 Negative Negative 09/23/2022 5:00 PM CDT [facility] TYPE 18 Negative Negative 09/23/2022 5:00 PM CDT [facility] OTHER HIGH RISK TYPES Negative Negative 09/23/2022 5:00 PM CDT [facility] Other (Other) 09/12/2022 3:0 0 PM CDT 09/17/2022 12:19 PM CDT Narrative [facility] - 09/23/2022 5:00 PM CDT HPV types 16, 18, 31, 33, 35, 39, 45, 51, 52, 56, 58, 59, 66 and 68 DNA were undetectable or below the pre-set threshold. Methodology: Michelle Adela 4800 HPV Test Alley Johnson MD MICROBIOLO GY [facility] [address] [place] [address], [place] * GC CHLAMYDIA TRACH PROBE (05/20/2021 3:33 PM BUSINESS PROGRAMMER) CHLAMYDIA PROBE Negative 4:11 AM BUSINESS PROGRAMMER [facility] N GONORRHOEAE PROBE Negative 05/21/2021 4:11 AM BUSINESS PROGRAMMER [facility] Other URINE SPECIMEN / Unknown Non-Blood / Unknown 05/20/2021 3:33 PM BUSINESS PROGRAMMER 05/20/2021 3:34 PM BUSINESS PROGRAMMER Madina Goetz MD MICROBIOLOG Y [facility] [address] [place] [address], * ANTI HIV 1/2 (06/29/2020 3:20 PM CDT) Pathologist [facility] HIV-1/HIV-2 ANTIBODY Non-Reacti ve Non-Reacti ve 06/29/2020 9:14 PM CDT [facility] Comment:HIV-1 p24 and HIV-1/ HIV-2 Ab not detected. Blood BLOOD SPECIMEN / Unknown Venipuncture / Unknown 06/29/2020 3:20 PM CDT 06/29/2020 3:20 PM CDT Anitha Ojeda DO SEND OUTS Performing Organization Address [facility]/ZIP Co de Phone Number [facility] [address] [place] [address], from Last 3 Months or Most Recently Relevant to Health Maintenance Care Teams Space Physicist Relationship Specialty Start Date End Date Anitha Ojeda DO [facility] [place] [address] PCP - General Family Practice 07/05/20
--- NOTE | 2023-09-18 13:00 | CRLHL7_ITS ---
For Patients: As a result of the Century Cures Act, medical imaging exams and procedure reports are released immediately into your electronic medical record. You may view this report before your referring provider. If you have questions, please contact your health care provider. INDICATION: CONGENITAL HEART ANOMALY COMPARISON: 09/11/2023 TECHNIQUE: Real time bolden scale imaging of the fetus was performed. Without non-stress testing. FINDINGS: Sonographic imaging demonstrates a single living intrauterine gestation. Fetus demonstrates a regular cardiac rate of 129 beats per minute. Fetus has a vertex position. The amniotic fluid volume appears normal and there is a single deepest pocket measurement of 6.0 cm. The fetus was active and demonstrated normal breathing movements. There was normal flexion and extension of the trunk and extremities. IMPRESSION: Normal biophysical profile score of 8 out of 8. Dictated by Ayo Anglin MD @ 09/18/2023 3:58:33 PM (Electronically Signed)
== END 2023-09-18 12:53 | disposition home or self-care (01) ==
LOC: US 12:52
PROVIDERS: Visit Provider Obstetrics & Gynecology
DX: O35.BXX0 Maternal care for other (suspected) fetal abnormality and damage, fetal cardiac anomalies, not applicable or unspecified (principal)
CPT/HCPCS: 76819

== ENCOUNTER 2023-09-25 13:01 | Outpatient (CLI) | payer MEDICAID, SELFPAY ==
--- NOTE | 2023-09-25 13:00 | CRLHL7_ITS ---
For Patients: As a result of the Century Cures Act, medical imaging exams and procedure reports are released immediately into your electronic medical record. You may view this report before your referring provider. If you have questions, please contact your health care provider. INDICATION: Congenital heart anomaly COMPARISON: 09/18/2023 TECHNIQUE: Real time bolden scale imaging of the fetus was performed. Without non-stress testing. FINDINGS: Sonographic imaging demonstrates a single living intrauterine gestation. Fetus demonstrates a regular cardiac rate of 127 beats per minute. Fetus has a vertex position. The amniotic fluid volume appears normal and there is a single deepest pocket measurement of 3.6 cm. The fetus was active and demonstrated normal breathing movements. There was normal flexion and extension of the trunk and extremities. IMPRESSION: Normal biophysical profile score of 8 out of 8. Dictated by Ayo Anglin MD @ 09/26/2023 7:56:02 PM (Electronically Signed)
--- OUTSIDE RECORDS SUMMARY | 2023-09-25 13:03 | XMS_ITS | Encounter Summary ---
Author Organization [place] Address [address] [facility] [place] [address] Care Team Providers Care It Sales Executive Name Role Phone No Ref-Primary, Physician Primary Care Provider Hetal Parra MD Unavailable [phone] Reason for Visit * Reason Onset Date Comments Appointment 09/25/2023 Encounter Details Date Type Department Care Team (Late st Contact Info) Description 09/25/2023 Telephone [facility] [address] [place], [place] [id number] Shaunna Nolasco RN Appointment Social History Tobacco Use Types [...] Telephone Encounter - Shaunna Nolasco RN - 09/25/2023 10:13 AM CDT RN received a call from Rosemary requesting to cancel her IOL on 09/28/23 at 39w3d due to CHD. Ptstates she is due on 10/01 and would prefer to wait until then or wait for spontaneous labor. RN explained reason for IOL at 39w3d early in the week with a baby with a cardiac defect. Pt declined IOL.Pt agreed to come into [facility] on Friday 09/29 for a follow up ultrasound and ob visit. Will discuss plan for delivery in greater detail at [facility] visit. Pt also has a BPP and ob visit with her primary ob provider in [place] today. Shaunna Nolasco RN documented in this encounter Plan of Treatment Upcoming Encounters Date Type Department Care Team (Late st Contact Info) Description 09/29/2023 2:15 PM CDT Appointment [facility] [address] [place] [address] Valeria [place] MD [address] [id number] 09/29/2023 2:45 PM CDT Office Visit [facility] [address] [place], [place] [address] Valeria [place] MD [address] [id number] 09/29/2023 3:00 PM CDT Office Visit [facility] [address] [place], [place] [phone] Sue Shani CN [address] [id number] documented as of this encounter Visit Diagnoses Not on filedocumented in this encounter Additional Health Concerns Assessment Noted Time PHQ-9 Depression Total Score: 0 08/19/19 12:54 PM CDT documented as of this encounter Care Teams It Sales Executive Relationship Specialty Start Date End Date No Ref-Primary, Physician PCP - General 05/08/23 Hetal Parra MD [address] [id number] Assigned OBGYN Provider 09/06/23 documented as of this encounter
--- OUTSIDE RECORDS SUMMARY | 2023-09-25 13:03 | XMS_ITS | Encounter Summary ---
Author Organization [place] Address [address] [facility] [place] [address] Care Team Providers Care [employer] Remover Name Role Phone No Ref-Primary, Physician Primary Care Provider Hetal Parra MD Unavailable [phone] Reason for Visit * Reason Onset Date Comments Clinic Care Coordination - Follow-up 09/07/2023 Cordblood consent Encounter Details Date Type Department Care Team (Late st Contact Info) Description 09/07/2023 Telephone [facility] [place] [address] [facility] [address] [place] [address] Adriana Gómez GC [address] [place] [address] Clinic Care Coordination - Follow-up [...] she is busy at the moment. Called Roesmary this afternoon, as planned, and received voicemail. I left a message for her to call me back this afternoon or I will attempt again tomorrow. September 08, 2023 I called Rosemary back today and got voicemail. Left a message requesting a call back. September 21, 2023 I called Rosemary and reached her for cordblood and in-patient genetics consult consent. Impression/Plan: 1. Today we reviewed option of testing and inpatient genetics consultation. Consent was obtained today and has been scanned into her chart with Griselda Hogue MS, [facility] as a witness. Plan for SNP array with limited G- bands on cord blood at time of delivery and inpatient genetics consult. Orders will be placed and held in chart. The patient will be contacted to discuss results as they become available. 2. Rosemary has already met with genetic counseling previously during the to discuss heart defect. Please see corresponding documentation for complete details on 05-08-23 and 08-31-2023. Discussion: After a brief review of Rosemary 's history and available testing options, Rosemary was interested in pursuing genetic testing on cord blood at the time of delivery to clarify the possibility of an underlying genetic etiology for the identified coarctation of the aorta. We reviewed the option ofSNP array with limited G-bands on cord blood testing ([id number]). We discussed possible results including positive, negative, and uncertainty as well as that array cannot completely rule out the possibility of all genetic conditions such as single gene disorders. Specimen requirements are 5 mL of cord blood in a green top tube and 5mL of cord blood in a purple top tube. The consent for genetic testing was signed at today's visit and is scanned into her chart. Adriana Gómez MS, [facility] Licensed Genetic Counselor [facility] Pager: [phone] Office: [phone] Adriana Gómez MSMADDIE Licensed Genetic Counselor [facility] Pager: [phone] Office: [phone] documented in this encounter Plan of Treatment Upcoming Encounters Date Type Department Care Team (Late st Contact Info) Description 09/29/2023 2:15 PM CDT Appointment [facility] Maternal Medicine [facility] [address] [place] [phone] Valeria [place] MD [address] [place], [place] [phone] 09/29/2023 2:45 PM CDT Office Visit [facility] M[facility] [address] [place], [place] [address] Valeria [place] MD [address] [id number] 09/29/2023 3:00 PM CDT Office Visit [facility] Medicine [facility] [address] [place], [place] [phone] Sue Sahni [facility] [address] [id number] documented as of this encounter Visit Diagnoses Not on filedocumented in this encounter Additional Health Concerns Assessment Noted Time PHQ-9 Depression Total Score: 0 08/19/19 12:54 PM CDT documented as of this encounter Care Teams [employer] Remover Relationship Specialty Start Date End Date No Ref-Primary, Physician PCP - General 05/08/23 Hetal Parra MD [address] [place] [address] Assigned OBGYN Provider 09/06/23 documented as of this encounter
--- OUTSIDE RECORDS SUMMARY | 2023-09-25 13:03 | XMS_ITS | Referral Summary ---
Author Organization [facility] Address Formerly [facility], [facility] [place] [address] Care Team Providers Care Occupational Health Technician Name Role Phone No Ref-Primary, Physician Primary Care Provider Hetal Parra MD Unavailable [phone] Encounters Date Type Department Care Team Description 09/25/2023 Telephone [facility] [address] [place], [place] [address] Shaunna Nolasco, RN Appointment 09/25/2023 Orders Only [facility] [address] [place], [place] [address] Shaunna Nolasco, RN Supervision of high risk in third trimester (Primary Dx) 09/09/2023 9:30 AM CDT Virtual Visit [facility] [address] [place] [phone] Kimberly Maddox MD Anomaly of heart of fetus affecting , antepartum, single or unspecified fetus (Primary Dx) 09/07/2023 Telephone [facility] [address] [place] [address] Adriana Gómez GC Clinic Care Coordination - Follow-up (Cordblood consent) 09/02/[address] [facility] [address] [place] [phone] Soumya Rodriguez LPN 08/31/2023 Travel 08/31/2023 3:00 PM CDT Office Visit [facility] [address] [place] [address] Hetal Parra MD Johnson, Kate Talbot, LIBIA Supervision of high risk in third trimester (Primary Dx); complicated by congenital heart disease, single or unspecified fetus 08/31/2023 3:00 PM CDT Office Visit [facility] [address] [place] [address] Hetal Parra MD Stoner, Natalie E, GC Abnormal ultrasound (Primary Dx); Encounter for procreative genetic counseling and testing 08/31/2023 2:45 PM CDT Office Visit [facility] [address] [place] [address] Hetal Parra MD complicated by congenital heart disease, single or unspecified fetus (Primary Dx) 08/31/2023 2:13 PM CDT - 08/31/2023 11:59 PM CDT Hospital Encounter [facility] [address] [place] [phone] Hetal Parra MD related condition, antepartum Discharge Disposition: Home or Self Care 08/19/2023 Office Visit [facility] Services - Heart & Vascular Service Line [address] [place] [phone] Yonatan Black MD cardiac disease affecting , single or unspecified fetus (Primary Dx) 08/19/2023 Documentation Only [facility] CASE MANAGEMENT [phone] Edda Ohara LICSW 08/19/2023 Orders Only [facility] [address] [place] [address] [facility] [address] [place] [phone] Carlos Alberto Leonard MD Anomaly of heart of fetus affecting , antepartum, single or unspecified fetus (Primary Dx) 08/19/2023 Travel 08/19/2023 9:25 AM CDT - 08/19/2023 11:44 AM CDT Hospital Encounter [facility] Formerly [facility] [place] [address] Leyda Guzman MD Urmfmusfet Anomaly of heart of fetus affecting , antepartum, single or unspecified fetus Discharge Disposition: Home or Self Care 08/19/2023 10:00 AM CDT Office Visit [facility] [address] [place] [address] Gudelia Sahni CNM related condition, antepartum 08/19/2023 12:15 PM CDT Office Visit [facility] [address] [place], [place] [address] [place] [address] Leyda Guzman MD complicated by congenital heart disease, single or unspecified fetus (Primary Dx) 08/19/2023 11:45 AM CDT - 08/19/2023 11:59 PM CDT Hospital Encounter [facility] [address] [place] [phone] Leyda Guzman MD related condition, antepartum Discharge Disposition: Home or Self Care 08/19/2023 9:30 AM CDT Office Visit [facility] [address] [place] [phone] Gudelia Sahni CNM Supervision of high risk in third trimester (Primary Dx); complicated by congenital heart disease, single or unspecified fetus 08/17/2023 MyC Medical Advice [facility] Former[facility], [facility] [address] [place] [address] Soumya Rodriguez LPN 08/04/2023 Orders Only [facility] [address] [place] [address] Louise Haley GC Abnormal ultrasound (Primary Dx) 08/04/2023 Telephone [facility] [address] [place] [address] Shaunna Nolasco, DIPTI Appointment 08/04/2023 Orders Only [facility] [address] [place] [address] Shaunna Nolasco RN related condition, antepartum (Primary Dx) 08/03/2023 Telephone [facility] [address] [place] [address] Shaunna Nolasco RN Appointment 08/03/2023 Orders Only [facility] [address] [place] [address] Shaunna Nolasco RN related condition, antepartum (Primary Dx) 07/31/2023 Travel 07/31/2023 2:45 PM CDT Office Visit [facility] [address] [place] [phone] Jair Sanchez MD complicated by congenital heart disease, single or unspecified fetus (Primary Dx) 07/31/2023 2:08 PM CDT - 07/31/2023 11:59 PM CDT Hospital Encounter [facility] [address] [place] [address] Jair Sanchez MD Congenital heart defect Discharge Disposition: Home or Self Care 07/14/2023 Office Visit [facility] [address] [place] [phone] Carlos Alberto Leonard MD cardiac disease affecting , single or unspecified fetus (Primary Dx) 07/14/2023 Travel 07/14/2023 7:45 AM CDT - 07/14/2023 11:59 PM CDT Hospital Encounter [facility] [address] [place] [phone] Yifan Aponte MD Anomaly of heart of fetus affecting , antepartum, single or unspecified fetus Discharge Disposition: Home or Self Care 07/07/2023 Orders Only [facility] [address] [facility] [address] [place] [address] Yifan Aponte MD Anomaly of heart of fetus affecting , antepartum, single or unspecified fetus (Primary Dx) 06/29/2023 Travel 06/29/2023 2:45 PM CDT Office Visit [facility] [address] [place] [address] Swati Hurst MD Congenital heart defect (Primary Dx) 06/29/2023 2:15 PM CDT - 06/29/2023 11:59 PM CDT Hospital Encounter [facility] [address] [place] [address] Swati Hurst MD abnormality affecting management of mother, single or unspecified fetus Discharge Disposition: Home or Self Care from Last 3 Months Allergies Active Allergy Reactions Criticality Noted Date Comments [place] Extract Difficulty breathing,Rash,Shortness Of Breath High 01/03/2020 [...] see the maternal medical record: Rosemary Nenita An MR#:[id number] Delivery hospital: [facility] DIAGNOSIS: DIAGNOSIS / DIAGNOSES: 1) CHD-Shone's Complex, coarcation of the aorta GENETIC (and other) TESTING: MaterniT Genome neg PERTINENT MATERNAL CONDITIONS: 1) + Chlamydia 02/16/23 CARE PLAN: 1) Ultrasounds - q 4 08/30, 09/29 2) Other Imaging - echo 05/19, 07/13, 08/18- no further echoes 3) surveillance - weekly BPP at 32 weeks, Fridays in [place] 4) Relocation - 5) care with - [place] 6) Labs - (look in media tab / care everywhere for results) Blood type: O+ Ab screen: neg HepBSAg: neg Rubella: Immune RPR: NR HIV: neg Hep C: neg GCT: 88 06/29/13 GBS: neg 08/30 PAP: needs PP 7) Vaccines: Tdap- 07/27 Flu Vaccine- 8) PHQ-9: 9) care team and consultations - A) Genetic Counselor - Kody Davey; GC appt 08/30 B) Neonatology - 08/18 Dr. Kapadia C) Social Work - Annabelle D) CV Surg- 09/08, Dr. Maddox DELIVERY PLAN: 1) Hospital - [facility] 2) Gestational age - IOL 39w3d 0730 09/28/23---- declined, pt cancelled 3) Route - 4) Notifications in labor - 5) Genetics/specimen collection for baby: Needs consent for cordblood testing ([id number]) 08/30 BABY PLAN: 1) Baby to go [...] delivery. REFERRING PROVIDER(S): 1) Primary OB Provider: [facility] 2) Other Sub-Specialty Provider: 3) Anticipated Pediatric Provider: DEMOGRAPHICS: Patient contact info: [address] [facility] [address] Partner's name: Aries Baby's name: Estimated Date [...] Info) Description 09/29/2023 2:15 PM CDT Appointment [facility] [place] [address] [place] [address] Valeria Isabel MD [address] [place] [address] 09/29/2023 2:45 PM CDT Office Visit [facility] [place] [address] [place] [address] Valeria Isabel MD [address] [place] [address] 09/29/2023 3:00 PM CDT Office Visit [facility] [place] [address] [place], [place] [phone] Bora Gudeliaserene Chen CNM [address] [place], [place] [address] Procedures Procedure Name Priority Date/Time Associated Diagnosis Comments GROUP B STREP PCR Routine 08/31/2023 3:4 7 PM CDT Supervision of high risk in third trimester [facility] US COMPREHENSIVE SINGLE F/U Routine 08/31/2023 2:52 PM CDT related condition, antepartum [facility] BPP SINGLE Routine 08/19/2023 12:31 PM CDT related condition, antepartum ECHO COMPLETE Routine 08/19/2023 1 1:23 AM CDT Anomaly of heart of fetus affecting , antepartum, single or unspecified fetus [facility] US COMPREHENSIVE SINGLE F/U Routine 07/31/2023 2:45 PM CDT Congenital heart defect ECHO COMPLETE Routine 07/14/2023 1 0:10 AM CDT Anomaly of heart of fetus affecting , antepartum, single or unspecified fetus [facility] US COMPREHENSIVE SINGLE F/U Routine 06/29/2023 [...] Xpert GBS LB Assay, performed on the [employer], is a qualitative in vitro [...] settings. The device is not intended for kouft-cb-datb use. Gudelia Sahni [facility] - MICRO GENE [employer] ORDERABLES [facility] Inf. Diseases Diag. Lab [address] [facility], Room [address] [place] [phone] * [facility] Comprehensive Single F/U (08/31/2023 2:52 PM [...] ? Study Date: ??08/31/2023 2:23pm Pat. NO: ??[id number] ?Referring ??MD: FRANCIA GILMAN Site: ? Saw Man: Kassie Jackson RDMS : ??2000 ?Age: ?? [...] ?oz Head / Face / Neck Biometry: Unit Director ?4.8 ? mm CM ? 6.2 ? mm ANATOMY ----- The following structures appear abnormal: Heart / Thorax ?4-chamber view: coarctation of the aorta. LVOT view. 1-zlrbfb-pdarzhz view. The following structures appear normal: Head [...] ongoing recommendations. Continue weekly surveillance (scheduled with [place]). She is scheduled for induction on 09/27. If you have questions regarding today's evaluation or if we can be of further service, please contact the [facility] Center. anomalies may be present but not detected Procedure Note Hetal Parra MD - 09/01/2023 Comp Follow Up ----- Pat. Name: GRZEGORZ ARTHURSROSEMARY Study Date: 08/31/2023 2:23pm Pat. NO: [id number] Referring MD: FRANCIA GILMAN Site: Saw Man: Kassie Jackson RDMS : 2000 Age: 23 [...] 12oz Head / Face / Neck Biometry: Unit Director 4.8mm CM 6.2mm ANATOMY ----- The following structures appear abnormal: Heart / Thorax 4-chamber view: coarctation of theaorta. LVOT view. 6-fbkmeq-rhjgcsv view. The following structures appear normal: Head [...] andongoing recommendations. Continue weekly surveillance (scheduled with [place]). She isscheduled for induction on 09/27. If [...] The BPP was 10/21. Jair Sanchez MD [facility] US ORDERABL * [facility] BPP Single (08/19/2023 12:31 PM CDT) Anatomical Region Laterality Modality Ultrasound 08/19/2023 12:1 1 PM CDT Impressions 08/19/2023 4:47 PM CDT IMPRESSION ----- 1) Law intrauterine at 33w 5d gestational age. 2) The BPP is reassuring. 3) The amniotic fluid volume appeared normal. Narrative 08/19/2023 4:47 PM CDT ?BPP ----- Pat. Name: ROSEMARY NARAYAN ? Study Date: ??08/19/2023 12:11pm Pat. NO: ??[id number] ?Referring ??MD: GUDELIA SAHNI Site: ??[facility] ? Saw Man: Molly Bernal RDMS : ??2000 ?Age: ?? [...] NARAYAN Study Date: 08/19/2023 12:11pm Pat. NO: [id number] Referring MD: GUDELIA SAHNI Site: [facility] Saw Man: Molly Bernal RDMS : 2000 Age: 22 [...] movements 2: tone 2: Amniotic fluid volume 8 Biophysical profile score Interpretation: normal RECOMMENDATION ----- [...] fluid volume appeared normal. Jair Sanchez MD [facility] US ORDER[facility]L ES * ECHO COMPLETE (08/19/2023 11:23 AM CDT) Anatomical Region Laterality Modality Ultrasound 08/19/2023 10:5 5 AM CDT Narrative 08/20/2023 8:33 AM CDT [id number]^ERLIN ? Study ID: [id number] ?[facility] ?[facility] ?[address] ?[place] [address] ? Echocardiogram Name: ROSEMARY NARAYAN Study Date: [...] date: 10/02/2023. Gestational age: 33w5d. Delivery at: [place]. Specific Indication: echocardiogram performed for suspected coarctation [...] patient. Delivery is recommended at [facility]. Cardiology consultation and echocardiogram is recommended immediately [...] to the left atrium. There is laminar lyzbo-wk-amuu shunting across the foramen ovale. Atrioventricular valves: [...] Procedure Note Yonatan Black MD - 08/20/2023 [id number] [facility] [id number]^HORACIO^CARLOS ALBERTO Study ID:[id number] [facility] [place] [address] Echocardiogram Name: ROSEMARY NARAYAN Study Date: 08/19/2023 10:55 AM Patient Location:[facility] Gender: Female Patient Class:Outpatient : 2000 Age: 22 yrs Ordering Provider: CARLOS ALBERTO LEONARD Referring Provider: FRANCIA GILMAN Performed By: Fabiola Sahni Physician: Yonatan Black MD Reason For Study: Anomaly of heart of fetus affecting ,antepartum, singl Data: Number of fetuses: This is a law gestation. Duedate: 10/02/2023. Gestational age: 33w5d. Delivery at: [place]. Specific Indication: echocardiogram performed for suspected coarctation [...] patient. Delivery is recommended at [facility]. Cardiology consultation and echocardiogram is recommended immediately [...] in to the left atrium. There is qlmivomkmsvn-pd-oxon shunting across the foramen ovale. Atrioventricular valves: [...] AM CDT Narrative 07/14/2023 10:23 AM CDT [id number]^ASTON^YIFAN ? Study ID: [id number] ?[facility] ?[facility] ?[address] ?[place] [address] ? Echocardiogram Name: ROSEMARY NARAYAN Study Date: 07/14/2023 08:18 AM ? Patient Location: [facility] Gender: Female ?Patient Class: Outpatient [...] gradient. Delivery is recommended at [facility]. Cardiology consultation and echocardiogram is recommended immediately [...] to the left atrium. There is laminar urgcj-ee-zlcq shunting across the foramen ovale. Atrioventricular valves: [...] Note Carlos Alberto Leonard MD - 07/14/2023 [id number]^ASTON^YIFAN Study ID:[id number] [facility] [address] [address] Echocardiogram Name: ROSEMARY NARAYAN Study Date: 07/14/2023 08:18 AM Patient Location: [facility] Gender: Female Patient Class:Outpatient : 2000 Age: [...] blood. pressure gradient. Delivery is recommended [facility]. Cardiology consultation and echocardiogram isrecommended immediately [...] in to the left atrium. There is gncbaozyvskf-sr-hqdk shunting across the foramen ovale. Atrioventricular valves: [...] Carlos Alberto Leonard MD 07/14/2023 10:23 AM Yifna Aponte MD CV PEDS ECHO ORDERAB LES from Last 3 Months Care Teams Occupational Health Technician Relationship Specialty Start Date End Date No Ref-Primary, Physician PCP - General 05/08/23 Hetal Parra MD [address] [place] [address] Assigned OBGYN Provider 09/06/23
--- OUTSIDE RECORDS SUMMARY | 2023-09-25 13:03 | XMS_ITS | Encounter Summary ---
Author Organization [place] Address [address] [facility] [place] [address] Care Team Providers Care Extruding Press Adjuster Name Role Phone No Ref-Primary, Physician Primary Care Provider Hetal Parra MD Unavailable [phone] Encounter Details Date Type Department Care Team (Late st Contact Info) Description 09/02/[address] [facility] [address] [place] [address] Soumya Rodriguez [...] Info) Description 09/29/2023 2:15 PM CDT Appointment [facility] [address] [place] [address] Valeria Isabel MD [id number] 09/29/2023 2:45 PM CDT Office Visit [facility] [place] [address] [place] [address] Valeria Isabel MD [address] [id number] 09/29/2023 3:00 PM CDT Office Visit [facility] [address] [place], [place] [address] Sue Sahni [facility] [address] [id number] documented as of this encounter Visit Diagnoses Not on filedocumented in this encounter Additional Health Concerns Assessment Noted Time PHQ-9 Depression Total Score: 0 08/19/19 24 12:54 PM CDT documented as of this encounter Care Teams Extruding Press Adjuster Relationship Specialty Start Date End Date No Ref-Primary, Physician PCP - General 05/08/23 Hetal Parra MD [address] [id number] Assigned OBGYN Provider 09/06/23 documented as of this encounter
--- OUTSIDE RECORDS SUMMARY | 2023-09-25 13:03 | XMS_ITS | Clinical Summary ---
Author Organization [place] Address [address] [facility] [place] [address] Care Team Providers Care Mds Rn Name Role Phone No Ref-Primary, Physician Primary Care Provider Hetal Parra MD Unavailable [phone] Allergies Active Allergy Reactions Criticality Noted Date Comments Monument Extract Difficulty breathing,Rash,Shortness Of Breath High 01/03/2020 [...] the maternal medical record: Rosemary Nenita An MR#:[id number] Delivery hospital: [facility] DIAGNOSIS: DIAGNOSIS / DIAGNOSES: 1) CHD-Shone's Complex, coarcation of the aorta GENETIC (and other) TESTING: MaterniT Genome neg PERTINENT MATERNAL CONDITIONS: 1) + Chlamydia 02/16/23 CARE PLAN: 1) Ultrasounds - q 4 08/30, 09/29 2) Other Imaging - echo 05/19, 07/13, 08/18- no further echoes 3) surveillance - weekly BPP at 32 weeks, Fridays in [place] 4) Relocation - 5) care with - [place] 6) Labs - (look in media tab [...] Dr. Maddox DELIVERY PLAN: 1) Hospital - [facility] 2) Gestational age - IOL 39w3d 0730 09/28/23---- declined, pt cancelled 3) Route - 4) Notifications in labor - 5) Genetics/specimen collection for baby: Needs consent for cordblood testing ([id number]) 08/30 BABY PLAN: 1) Baby to go [...] delivery. REFERRING PROVIDER(S): 1) Primary OB Provider: [facility] 2) Other Sub-Specialty Provider: 3) Anticipated Pediatric Provider: DEMOGRAPHICS: Patient contact info: [address] [facility] [address] Partner's name: Aries Baby's name: Estimated Date of Delivery Comme nts Yes 10/02/2023 Based on Ultraso und No additional problems on file Encounters Date Type Department Care Team Description 09/25/2023 Telephone [facility] [address] [place] [address] Shaunna Nolasco RN Appointment 09/25/2023 Orders Only [facility] [address] [place] [address] Shaunna Nolasco RN Supervision of high risk in third trimester (Primary Dx) 09/09/2023 9:30 AM CDT Virtual Visit [facility] Critical access hospital0 [address] [phone] Kimberly Maddox MD Anomaly of heart of fetus affecting , antepartum, single or unspecified fetus (Primary Dx) 09/07/2023 Telephone [facility] [address] [facility] [address] [place] [address] Adriana Gómez GC Clinic Care Coordination - Follow-up (Cordblood consent) 09/02/2023 MyC Medical Advice [facility] Critical access hospital0 [address] [phone] Soumya Rodriguez LPN 08/31/2023 3:00 PM CDT Office Visit [facility]aternal [facility] [address] [place], [place] [address] [address] Hetal Parra MD Johnson, Kate Talbot, CNM Supervision of high risk in third trimester (Primary Dx); complicated by congenital heart disease, single or unspecified fetus 08/31/2023 3:00 PM CDT Office Visit [facility] [address] [place] [address] Hetal Parra MD Stoner, Natalie E, GC Abnormal ultrasound (Primary Dx); Encounter for procreative genetic counseling and testing 08/31/2023 2:45 PM CDT Office Visit [facility] [address] [place] [address] Hetal Parra MD complicated by congenital heart disease, single or unspecified fetus (Primary Dx) 08/31/2023 2:13 PM CDT - 08/31/2023 11:59 PM CDT Hospital Encounter [facility] [place] [address] [place] [address] Hetal Parra MD related condition, antepartum Discharge Disposition: Home or Self Care 08/31/2023 Travel 08/19/2023 12:15 PM CDT Office Visit [facility]aternal [facility] [address], [place] [address] Leyda Guzman MD complicated by congenital heart disease, single or unspecified fetus (Primary Dx) 08/19/2023 11:45 AM CDT - 08/19/2023 11:59 PM CDT Hospital Encounter [facility] [address] [place] [phone] Leyda Guzman MD related condition, antepartum Discharge Disposition: Home or Self Care 08/19/2023 10:00 AM CDT Office Visit [facility] [address] [place] [phone] Gudelia Sahni CNM related condition, antepartum 08/19/2023 9:30 AM CDT Office Visit [facility] [address] [place] [address] Gudelia Sahni CNM Supervision of high risk in third trimester (Primary Dx); complicated by congenital heart disease, single or unspecified fetus 08/19/2023 9:25 AM CDT - 08/19/2023 11:44 AM CDT Hospital Encounter [facility] [address] [place] [phone] Leyda Guzman MD Urmfmusfet Anomaly of heart of fetus affecting , antepartum, single or unspecified fetus Discharge Disposition: Home or Self Care 08/19/2023 Office Visit [facility] Services - Heart & Vascular Service Line [address] [place] [phone] Yonatan Black MD cardiac disease affecting , single or unspecified fetus (Primary Dx) 08/19/2023 Documentation Only [facility] CASE MANAGEMENT [phone] Edda Ohara, [facility] 08/19/2023 Orders Only [facility] [address] [place] [address] [phone] Carlos Alberto Leonard MD Anomaly of heart of fetus affecting , antepartum, single or unspecified fetus (Primary Dx) 08/19/2023 Travel 08/17/2023 MyC Medical Advice [facility] [address] [place] [phone] Soumya Rodriguez LPN 08/04/2023 Orders Only [facility] [address] [place] [address] Louise Haley GC Abnormal ultrasound (Primary Dx) 08/04/2023 Telephone [facility] [address] [place] [address] Shaunna Nolasco RN Appointment 08/04/2023 Orders Only [facility] [address] [place] [address] Shaunna Nolasco, RN related condition, antepartum (Primary Dx) 08/03/2023 Telephone [facility] [address] [place] [address] Shaunna Nolasco RN Appointment 08/03/2023 Orders Only [facility] [address] [place] [address] Shaunna Nolasco RN related condition, antepartum (Primary Dx) 07/31/2023 2:45 PM CDT Office Visit [facility] [address] [address] [place] [address] Jair Sanchez MD complicated by congenital heart disease, single or unspecified fetus (Primary Dx) 07/31/2023 2:08 PM CDT - 07/31/2023 11:59 PM CDT Hospital Encounter [facility] [address] [facility] [address] [place] [address] Jair Sanchez MD Congenital heart defect Discharge Disposition: Home or Self Care 07/31/2023 Travel 07/14/2023 7:45 AM CDT - 07/14/2023 11:59 PM CDT Hospital Encounter [facility] [address] [place] [phone] Yifan Aponte MD Anomaly of heart of fetus affecting , antepartum, single or unspecified fetus Discharge Disposition: Home or Self Care 07/14/2023 Office Visit [facility] [address] [place] [phone] Carlos Alberto Leonard MD cardiac disease affecting , single or unspecified fetus (Primary Dx) 07/14/2023 Travel 07/07/2023 Orders Only [facility] [address] [place] [phone] Yifan Aponte MD Anomaly of heart of fetus affecting , antepartum, single or unspecified fetus (Primary Dx) 06/29/2023 2:45 PM CDT Office Visit [facility] [address] [facility] [address] [place] [phone] Swati Hurst MD Congenital heart defect (Primary Dx) 06/29/2023 2:15 PM CDT - 06/29/2023 11:59 PM CDT Hospital Encounter [facility] [address] [facility] [address] [place] [phone] Swati Hurst MD abnormality affecting management of [...] Info) Description 09/29/2023 2:15 PM CDT Appointment [facility] [place] [address] [place] [address] Valeria Isabel MD [address] [place] [address] 09/29/2023 2:45 PM CDT Office Visit [facility] [place] [address] [place] [address] Valreia Isabel MD [address] [place] [address] 09/29/2023 3:00 PM CDT Office Visit [facility] [place] [address] [place], [place] [phone] Gudelia Sahni CNM [address] [place], [place] [address] Health Maintenance Due Date Last Done Comments [...] Supervision of high risk in third trimester [facility] US COMPREHENSIVE SINGLE F/U Routine 08/31/2023 2:52 PM CDT related condition, antepartum [facility] BPP SINGLE Routine 08/19/2023 12:31 PM CDT related condition, antepartum ECHO COMPLETE Routine 08/19/2023 1 1:23 AM CDT Anomaly of heart of fetus affecting , antepartum, single or unspecified fetus [facility] COMPREHENSIVE SINGLE F/U Routine 07/31/2023 2:45 PM CDT Congenital heart defect ECHO COMPLETE Routine 07/14/2023 1 0:10 AM CDT Anomaly of heart of fetus affecting , antepartum, single or unspecified fetus [facility] COMPREHENSIVE SINGLE F/U Routine 06/29/2023 [...] LABORATORY - 09/01/2023 11:54 AM CDT The [employer] Xpert GBS LB Assay, performed on the [employer]?? Instrument Systems, is a qualitative in vitro [...] settings. The device is not intended for lyqnm-ua-wzmk use. Gudelia Sahni [facility] LAB - MICRO GENE RAL ORDERABLES [facility]ORAT[facility] Inf. Diseases Diag. Lab [address] [facility] [place] [address] * [facility] Comprehensive Single F/U (08/31/2023 2:52 [...] ? Study Date: ??08/31/2023 2:23pm Pat. NO: ??[id number] ?Referring ??MD: FRANCIA GILMAN Site: ? Exercise Physiology Professor: Kassie Jackson RDMS : ??2000 ?Age: ?? [...] ?oz Head / Face / Neck Biometry: Digital Director ?4.8 ? mm CM ? 6.2 ? mm ANATOMY ----- The following structures appear abnormal: Heart / Thorax ?4-chamber view: coarctation of the aorta. LVOT view. 0-zsznye-kcalamu view. The following structures appear normal: Head [...] ongoing recommendations. Continue weekly surveillance (scheduled with [place]). She is scheduled for induction on 09/27. If you have questions regarding today's evaluation or if we can be of further service, please contact the Maternal- Medicine Center. anomalies may be present but not detected Procedure Note Hetal Parra MD - 09/01/2023 Comp Follow Up ----- Pat. Name: ROSEMARY NARAYAN Study Date: 08/31/2023 2:23pm Pat. NO: [id number] Referring MD: FRANCIA GILMAN Site: Exercise Physiology Professor: Kassie KhushikathrinePHUONG galaviz : 2000 Age: 23 ----- INDICATION ----- [...] assessment (on 02/16/2023) 35 w + 3 d7 GENERAL EVALUATION ----- Cardiac activity present. FHR [...] 12oz Head / Face / Neck Biometry: Digital Director 4.8mm CM 6.2mm ANATOMY ----- The following structures appear abnormal: Heart / Thorax 4-chamber view: coarctation of theaorta. LVOT view. 6-ktpvpn-sseustz view. The following structures appear normal: Head [...] andongoing recommendations. Continue weekly surveillance (scheduled with [place]). She isscheduled for induction on 09/27. If [...] The BPP was 10/21. Jair Sanchez MD [facility] US ORDERABL * [facility] BPP Single (08/19/2023 12:31 PM CDT) Anatomical Region Laterality Modality Ultrasound 08/19/2023 12:1 1 PM CDT Impressions 08/19/2023 4:47 PM CDT IMPRESSION ----- 1) Law intrauterine at 33w 5d gestational age. 2) The BPP is reassuring. 3) The amniotic fluid volume appeared normal. Narrative 08/19/2023 4:47 PM CDT ?BPP ----- Pat. Name: ROSEMARY NARAYAN ? Study Date: ??08/19/2023 12:11pm Pat. NO: ??[id number] ?Referring ??: GUDELIA SAHNI Site: ??[facility] ? Exercise Physiology Professor: Molly Bernal RDMS : ??2000 ?Age: [...] NARAYAN Study Date: 08/19/2023 12:11pm Pat. NO: [id number] Referring MD: GUDELIA SAHNI Site: [facility] Exercise Physiology Professor: Molly Bernal RDMS : 2000 Age: [...] fluid volume appeared normal. Jair Sanchez MD [facility] ORDERABL ES * ECHO COMPLETE (08/19/2023 11:23 AM CDT) Anatomical Region Laterality Modality Ultrasound 08/19/2023 10:5 5 AM CDT Narrative 08/20/2023 8:33 AM CDT [id number]^HORACIO^CARLOS ALBERTO ? Study ID: [id number] ?[facility] ?[facility] ?[address] ?[place] [address] ? Echocardiogram Name: ROSEMARY NARAYAN Study Date: [...] date: 10/02/2023. Gestational age: 33w5d. Delivery at: [place]. Specific Indication: echocardiogram performed for suspected coarctation [...] to the patient. Delivery is recommended at [facility]. Cardiology consultation and echocardiogram is [...] to the left atrium. There is laminar zmejn-yh-yjjs shunting across the foramen ovale. Atrioventricular valves: [...] Procedure Note Yonatan Black MD - 08/20/2023 [id number]^HORACIO^CARLOS ALBERTO Study ID:[id number] [facility] Children[facility] [address] [address] Echocardiogram Name: GRZEGORZ AN ROSEMARY L Study Date: 08/19/2023 10:55 AM Patient Location:[facility] Gender: Female Patient Class:Outpatient : 2000 Age: 22 yrs Ordering Provider: CARLOS ALBERTO LEONARD Referring Provider: FRANCIA GILMAN Performed By: Fabiola Sahni Physician: Yonatan Black MD Reason For Study: Anomaly of heart of fetus affecting ,antepartum, singl Data: Number of fetuses: This is a law gestation. Duedate: 10/02/2023. Gestational age: 33w5d. Delivery at: [place]. Specific Indication: echocardiogram performed for suspected coarctation [...] to the patient. Delivery is recommended at [facility]. Cardiology consultation and echocardiogram is [...] in to the left atrium. There is rhmtptpsbinn-fg-nqcg shunting across the foramen ovale. Atrioventricular valves: [...] AM CDT Narrative 07/14/2023 10:23 AM CDT [id number]^APONTE^YIFAN ? Study ID: [id number] ?[facility] ?[facility] ?[address] ?[place] [address] ? Echocardiogram Name: ROSEMARY NARAYAN Study Date: [...] blood. pressure gradient. Delivery is recommended at [facility]. Cardiology consultation and echocardiogram is [...] to the left atrium. There is laminar kxnek-un-kbpu shunting across the foramen ovale. Atrioventricular valves: [...] Note Carlos Alberto Leonard MD - 07/14/2023 [id number]^ASTON^YIFAN Study ID:[id number] [facility]'[address] [address] Echocardiogram Name: ROSEMARY NARAYAN Study Date: 07/14/2023 08:18 AM Patient Location: [facility] Gender: Female Patient Class:Outpatient [...] in to the left atrium. There is uuyintmyqshq-ue-kfat shunting across the foramen ovale. Atrioventricular valves: [...] LES from Last 3 Months Care Teams Mds Rn Relationship Specialty Start Date End Date No Ref-Primary, Physician PCP - General 05/08/23 Hetal Parra MD [address] [place], [place] [phone] Assigned OBGYN Provider 09/06/23
--- OUTSIDE RECORDS SUMMARY | 2023-09-25 13:03 | XMS_ITS | Encounter Summary ---
Author Organization [place] Address [address] [facility] [place] [address] Care Team Providers Care Blanching Machine Operator Name Role Phone No Ref-Primary, [...] Sue Sahni CNM [address] [facility] [address] [place] [address] Referral ID Status Reason Start Date Expiration Date V isits Requested Visits Authorized [id number] Pending Review 08/19/2023 08/18/2024 1 1 Encounter Details Date Type Department Care Team (Late st Contact Info) Description 08/31/2023 3:00 PM CDT Office Visit [facility] [place] [address] [place], [place] [address] Hetal Parra MD [address] [place] [address] Sue Sahni CNM [address] [place] [address] Supervision of high risk in [...] for you. Talk to your doctor or manager real estate about any concerns you have. You'll probably [...] Where can you learn more? Go to https://www.[employer]/patiented Enter B912 in the search box to learn more about Weeks 34 to 36 of Your : Care Instructions. Current as of: September 22, 2022?Content Version: 14.0 ?? [employer]. Care instructions adapted under license by your healthcare professional. If you have questions about a medical condition or this instruction, always ask your healthcare professional. [employer] disclaims any warranty or liability for your [...] Where can you learn more? Go to https://www.[employer].net/patiented Enter M001 in the search box to learn more about Group B Strep During : Care Instructions. Current as of: August 25, 2022?Content Version: 14.0 ?? [employer]. Care instructions adapted under license by your healthcare professional. If you have questions about a medical condition or this instruction, always ask your healthcare professional. [employer] disclaims any warranty or liability for your [...] risks and benefits. Ask your doctor or nurse-manager real estate: Why do I need to be induced? What are the risks to my baby? How will you start my labor? How will you know if my baby is ready to be born? How will you know if my body is ready to give ? Where can I get more information? To learn more about induction, you may visit these websites: [employer]: www.mymidwife.org [employer]st[employer]ians [employer] Gynecologists: www.acog.org Childbirth Connection: www.childbirthconnection.org [employer]: www.maysnagajob.com.[employer] Association of Women's Health, Obstetrics, and Nursing www.utxqqf4ujd.org/bp-ysd-eype-40/ For informational purposes only. Not to replace the advice of your health care provider. Copyright ?? 2007 [facility]. All rights reserved. Clinically reviewed by the System Operations Leadership team. [employer] [id number] - REV 06/04. * Attachments The following attachments cannot be sent through Care Everywhere. * : High Blood Pressure (Portuguese) documented in this encounter Progress Notes * [...] and OB visits with her doctor in [place] and she prefers to follow with them and return to [place] for her induction. OB Hx: OB History [...] - Weekly BPPs to be shared between [facility] and local OB clinic. Delivery planning: [...] concerns. Patient reports she was seen in [place] last Sunday 08/27 for N/V and dizziness. She states she was given IV fluids, zofran, and an Rx for omeprazole. Ptdoing well today. Pt is scheduled for weekly BPP/OB visits in [place] on Fridays. Dr. Parra reviewed US. Sue [...] Info) Description 09/29/2023 2:15 PM CDT Appointment [facility] [place] [address] [place] [phone] Valeria Isabel MD [address] [address] 09/29/2023 2:45 PM CDT Office Visit [facility] [place] [address] [place], [place] [address] Valeria Isabel MD [address] [place], [place] [address] 09/29/2023 3:00 PM CDT Office Visit [facility] [place] [address] [place], [place] [address] Sue Sahni CNM [address] [place], [place] [phone] documented as of this encounter Procedures Procedure [...] LABORATORY - 09/01/2023 11:54 AM CDT The [facility] [facility] Xpert GBS LB Assay, performed on the [employer]?? [employer] Systems, is a qualitative in vitro diagnostic [...] or monitor treatment for GBS infections. The [employer] Xpert GBS LB Assay is intended for use in hospital, reference or state laboratory settings. The device is not intended for fzigj-bn-mymo use. Sue Sahni CNM LAB - MICRO GENE RAL ORDERABLES [facility] Inf. Diseases Diag. Lab [address] [facility] [place] [address] documented in this encounter Visit Diagnoses Diagnosis Supervision of high risk in third trimester- Primary Unspecified high-risk complicated by congenital heart disease, single or unspecified fetus documented in this encounter Additional Health Concerns Assessment Noted Time PHQ-9 Depression Total Score: 0 08/19/19 24 12:54 PM CDT documented as of this encounter Care Teams Blanching Machine Operator Relationship Specialty Start Date End Date No Ref-Primary, Physician PCP - General 05/08/23 documented as of this encounter
--- OUTSIDE RECORDS SUMMARY | 2023-09-25 13:03 | XMS_ITS | Encounter Summary ---
Author Organization [place] Address [address] [facility] [place] [address] Care Team Providers Care Bank Sales And Service Manager Name Role Phone No Ref-Primary, Physician [...] Info) Description 09/29/2023 2:15 PM CDT Appointment [facility] [place] [address] [place] [phone] Valeria Isabel MD [address] [address] 09/29/2023 2:45 PM CDT Office Visit [facility] [place] [address] [place], [place] [address] Valeria Isabel MD [address] [facility] [address] [place], [place] [address] 09/29/2023 3:00 PM CDT Office Visit [facility] Maternal Medicine [facility] [address] [place], [place] [phone] Sue Sahni, EDMUNDO [address] [place] [address] documented as of this encounter Visit Diagnoses Not on filedocumented in this encounter Additional Health Concerns Assessment Noted Time PHQ-9 Depression Total Score: 0 08/19/19 24 12:54 PM CDT documented as of this encounter Care Teams Bank Sales And Service Manager Relationship Specialty Start Date End Date No Ref-Primary, Physician PCP - General 05/08/23 documented as of this encounter
--- OUTSIDE RECORDS SUMMARY | 2023-09-25 13:03 | XMS_ITS | Encounter Summary ---
Author Organization [place] Address [facility] [place] [address] Care Team Providers Care Hot Walker Name Role Phone No Ref-Primary, Physician Primary Care Provider Heatl Parra MD Unavailable [phone] Reason for Referral * Consultation (Routine: Next available opening) - Pending Review Specialty Diagnoses / Procedures Referred By Adonis shaffer Referred To Contact Diagnoses Supervision of high risk in third trimester Sue Sahni CNM [address] [place] [address] Referral ID Status Reason Start Date Expiration Date V isits Requested Visits Authorized [id number] Pending Review 09/25/2023 09/24/2024 1 1 Question Answer OB Visit? Yes * Diagnostic Imaging Ultrasound (Routine) - Pending Review Specialty Diagnoses / Procedures Referred By Adonis shaffer Referred To Contact Radiology. Diagnoses Supervision of high risk in third trimester Procedures M US Comprehensive Single F/U Sue Sahni CNM [address] [place] [address] Referral ID Status Reason Start Date Expiration Date V isits Requested Visits Authorized [id number] Pending Review 09/25/2023 09/24/2024 1 1 Encounter Details Date Type Department Care Team (Late st Contact Info) Description 09/25/2023 Orders Only [facility] [place] [address] [place], [place] [address] Shaunna Nolasco, RN Supervision of high risk in third trimester (Primary Dx) Social History Tobacco Use Types [...] Info) Description 09/29/2023 2:15 PM CDT Appointment [facility] Maternal Medicine [facility] [address] [place] [address] Valeria Isabel MD [address] [id number] 09/29/2023 2:45 PM CDT Office Visit [facility] Maternal Medicine [facility] [address] [place], [place] [address] Valeria Isabel MD [address] [address] 09/29/2023 3:00 PM CDT Office Visit [facility] [place] [address] [place], [place] [address] Sue Sahni CNM [address] 5[address] Scheduled Orders Name Type Priority Associated Diagnoses Orde r Schedule [facility] US Comprehensive Single F/U Imaging Routine Supervision of high risk in third trimester Expected: 09/29/2023 (Approximate), Expires: 09/24/2024 Scheduled Referrals Name Type Priority Associated Diagnoses Orde r Schedule MFM Office Visit Referral Routine: Next available opening Supervision of high risk in third trimester Expected: 09/29/2023 (Approximate), Expires: 09/24/2024 documented as of this encounter Visit Diagnoses Diagnosis Supervision of high risk in third trimester- Primary Unspecified high-risk documented in this encounter Additional Health Concerns Assessment Noted Time PHQ-9 Depression Total Score: 0 08/19/19 12:54 PM CDT documented as of this encounter Care Teams Hot Walker Relationship Specialty Start Date End Date No Ref-Primary, Physician PCP - General 05/08/23 Hetal Parra MD [address] [place] [address] Assigned OBGYN Provider 09/06/23 documented as of this encounter
--- OUTSIDE RECORDS SUMMARY | 2023-09-25 13:03 | XMS_ITS | Encounter Summary ---
Author Organization [place] Address [address] [place] [address] Care Team Providers Care Men'S And Boys' Clothing Salesperson Name Role Phone No Ref-Primary, Physician Primary Care Provider Hetal Parra MD Unavailable [phone] Reason for Visit * Reason Comments Consult Encounter Details Date Type Department Care Team ([facility] st Contact Info) Description 09/09/2023 9:30 AM CDT Virtual Visit [facility] [address] [place] [address] [address] [address] Kimberly Maddox MD [address] [place] [address] Anomaly of heart of fetus affecting [...] pleasure of seeing Rosemary Osborne at the [facility] in [facility] in [place] on September 09, 2023 in consultation for [...] be resent by: Text to cell phone: [phone] Will anyone else be joining your video visit? No documented in this encounter Plan of Treatment Upcoming Encounters Date Type Department Care Team (Late st Contact Info) Description 09/29/2023 2:15 PM CDT Appointment [facility] Maternal Medicine [facility] [address] [place] [address] Valeria Isabel MD [address] [address] 09/29/2023 2:45 PM CDT Office Visit [facility] Maternal Medicine [facility] [address] [place] [address] Valeria Isabel MD [address] [address] 09/29/2023 3:00 PM CDT Office Visit [facility] Maternal Medicine [facility] [address] [place] [address] Sue Sahni CNM [address] [place] [address] documented as of this encounter Visit Diagnoses Diagnosis Anomaly of heart of fetus affecting , antepartum, single or unspecified fetus- Primary documented in this encounter Additional Health Concerns Assessment Noted Time PHQ-9 Depression Total Score: 0 08/19/19 24 12:54 PM CDT documented as of this encounter Care Teams Men'S And Boys' Clothing Salesperson Relationship Specialty Start Date End Date No Ref-Primary, Physician PCP - General 05/08/23 Hetal Parra MD [address] [place], [place] [address] Assigned OBGYN Provider 09/06/23 documented as of this encounter
--- OUTSIDE RECORDS SUMMARY | 2023-09-25 13:04 | XMS_ITS | Encounter Summary ---
Author Organization [place] Address [address] [place] [address] Care Team Providers Care Auto Body Mechanic Name Role Phone No Ref-Primary, Physician Primary Care Provider Reason for Referral * (Routine) - Closed Specialty Diagnoses / Procedures Referred By Contac t Referred To Contact Cardiology Diagnoses Anomaly of heart of fetus affecting , antepartum, single or unspecified fetus Procedures Echo (TTE) Complete Yifan Clancy MD [address] [place] [address] [facility] [address] [place] [phone] Referral ID Status Reason Start Date Expiration Date Visits Re quested Visits Authorized [id number] Closed 07/14/2023 07/06/2024 1 1 Reason for Visit * (Routine) - Closed Specialty Diagnoses / Procedures Referred By Contac t Referred To Contact Cardiology Diagnoses Anomaly of heart of fetus affecting , antepartum, single or unspecified fetus Procedures Echo (TTE) Yifan Gamez MD [address] [place] [address] [facility] [address] [place] [phone] Referral ID Status Reason Start Date Expiration Date Visits Re quested Visits Authorized [id number] Closed 07/14/2023 07/06/2024 1 1 Encounter Details Date Type Department Care Team (Latest Contact Info) Description 07/14/2023 7:45 AM CDT - 07/14/2023 11:59 PM CDT Hospital Encounter [facility] [address] [place] [phone] Yifan Clancy MD [address] [place] [address] Anomaly of heart of fetus affecting , [...] Info) Description 09/29/2023 2:15 PM CDT Appointment [facility] Maternal [facility] [address] [place] [phone] Valeria Isabel MD [address] [place] [address] 09/29/2023 2:45 PM CDT Office Visit [facility] [place] [address] [place], [place] [address] Valeria Isabel MD [address] [place] [address] 09/29/2023 3:00 PM CDT Office Visit [facility] [place] [address] [place], [place] [address] Sue Sahni CNM [address] [place] [address] documented as of this encounter Procedures Procedure Name Priority Date/Time Associated Diagnosis Comments ECHO COMPLETE Routine 07/14/2023 1 0:10 AM CDT Anomaly of heart of fetus affecting , antepartum, single or unspecified fetus documented in this encounter Results * ECHO COMPLETE (07/14/2023 10:10 AM CDT) Anatomical Region Laterality Modality Echocardiography 07/14/2023 8:18 AM CDT Narrative 07/14/2023 10:23 AM CDT [id number]^CLANCY^YIFAN ? Study ID: [id number] ?[facility] ?[facility] ?[address] ?[place] [address] ? Echocardiogram Name: GRZEGORZ AN RA Nenita Study Date: 07/14/2023 08:18 AM ? Patient Location: [facility] Gender: Female ?Patient Class: Outpatient [...] blood. pressure gradient. Delivery is recommended at [facility]. Cardiology consultation and echocardiogram is [...] to the left atrium. There is laminar nivzm-lh-sdbi shunting across the foramen ovale. Atrioventricular valves: [...] Note Carlos Alberto Ott MD - 07/14/2023 [id number]^ASTON^YIFAN Study ID:[id number] [facility]'[address] [address] Echocardiogram Name: RA NARAYAN Study Date: 07/14/2023 08:18 AM Patient Location: [facility] Gender: Female Patient [...] limb blood. pressure gradient. Delivery is recommended [facility]. Cardiology consultation and echocardiogram isrecommended immediately after [...] in to the left atrium. There is xpnwldhrozji-ig-ndpx shunting across the foramen ovale. Atrioventricular valves: [...] fetus documented in this encounter Care Teams Auto Body Mechanic Relationship Specialty Start Date End Date No Ref-Primary, Physician PCP - General 05/08/23 documented as of this encounter
--- OUTSIDE RECORDS SUMMARY | 2023-09-25 13:04 | XMS_ITS | Encounter Summary ---
Author Organization [place] Address [address] [facility] [place] [address] Care Team Providers Care Rn Hemodialysis Name Role Phone No Ref-Primary, Physician Primary Care Provider Reason for Referral * Consultation (Routine: Next available opening) - Pending Review Specialty Diagnoses / Procedures Referred By Adonis t Referred To Contact Diagnoses related condition, antepartum Jair Sanchez MD [address] [address] Referral ID Status Reason Start Date Expiration Date V isits Requested Visits Authorized [id number] Pending Review 08/04/2023 08/03/2024 2 2 Question Answer OB Visit? Yes Is this a first time OB patient? Yes NICU Consult Yes Comments OBV and NICU consult 08/18 * Diagnostic Imaging Ultrasound (Routine) - Pending Review Specialty Diagnoses / Procedures Referred By Contac t Referred To Contact Radiology. Diagnoses related condition, antepartum Procedures M BPP Single Jair Sanchez MD [address] [place] [address] Referral ID Status Reason Start Date Expiration Date V isits Requested Visits Authorized [id number] Pending Review 08/04/2023 08/03/2024 1 1 Encounter Details Date Type Department Care Team (Late st Contact Info) Description 08/04/2023 Orders Only [facility] M[facility] Medicine [facility] [place] [address] [place], [place] [address] Shaunna Nolasco RN related condition, antepartum (Primary [...] Department Care Team (Late Contact Info) Description 09/29/2023 2:15 PM CDT Appointment [facility] Maternal Medicine [facility] [address] [place] [phone] Valeria Isabel MD [address] [address] 09/29/2023 2:45 PM CDT Office Visit [facility] Maternal Medicine [facility] [address] [place], [place] [address] Valeria Isabel MD [address] [address] 09/29/2023 3:00 PM CDT Office Visit [facility] Maternal Medicine [facility] [address] [place], [place] [address] Sue Barillas CN [address] [address] Scheduled Referrals Name Type Priority Associated Diagnoses Orde r Schedule [facility] Office Visit Referral Routine: Next available opening related condition, antepartum Weekly for 2 Occurrences starting 08/04/2023 until 08/03/2024 documented as of this encounter Results * [facility] BPP Single (08/19/2023 12:31 PM CDT) Anatomical Region Laterality Modality Ultrasound 08/19/2023 12:1 1 PM CDT Impressions 08/19/2023 4:47 PM CDT IMPRESSION ----- 1) Estrada intrauterine at 33w 5d gestational age. 2) The BPP is reassuring. 3) The amniotic fluid volume appeared normal. Narrative 08/19/2023 4:47 PM CDT ?BPP ----- Pat. Name: RA NARAYAN ? Study Date: ??08/19/2023 12:11pm Pat. NO: ??[id number] ?Referring ??MD: SUE BARILLAS Site: ??[facility] ? Boiler Tester: Molly Bernal RDMS : ??2000 ?Age: ?? [...] NARAYAN Study Date: 08/19/2023 12:11pm Pat. NO: [id number] Referring MD: SUE BARILLAS Site: [facility] Boiler Tester: Molly Bernal RDMS : 2000 Age: 22 [...] assessment (on 02/16/2023) 33 w + 5 d7/ GENERAL EVALUATION ----- Cardiac activity present. [...] fluid volume appeared normal. Jair Sanchez MD [facility] ORDERABL ES documented in this encounter Visit Diagnoses Diagnosis related condition, antepartum- Primary related condition, antepartum documented in this encounter Care Teams Rn Hemodialysis Relationship Specialty Start Date End Date No Ref-Primary, Physician PCP - General 05/08/23 documented as of this encounter
--- OUTSIDE RECORDS SUMMARY | 2023-09-25 13:04 | XMS_ITS | Encounter Summary ---
Author Organization [place] Address [address] [place] [address] Care Team Providers Care Hydrographical Technical Officer Name Role Phone No Ref-Primary, Physician Primary Care Provider Reason for Referral * Consultation (Routine: Next available opening) - Pending Review Specialty Diagnoses / Procedures Referred By Contac t Referred To Contact Diagnoses Supervision of high risk in third trimester complicated by congenital heart disease, single or unspecified fetus Sue Sahni CNM [address] [address] Referral ID Status Reason Start Date Expiration Date V isits Requested Visits Authorized [id number] Pending Review 08/19/2023 08/18/2024 1 1 Question Answer OB Visit? Yes Comments Ob visit Reason for Visit * Reason Comments Care Ob visit 33w5d; feta l CHD; coarctation of aorta * Consultation (Routine: Next available opening) - Pending Review Specialty Diagnoses / Procedures Referred By Contac t Referred To Contact Diagnoses related condition, antepartum Jair Sanchez MD [address] [facility] [address] [place] [address] Referral ID Status Reason Start Date Expiration Date V isits Requested Visits Authorized [id number] Pending Review 08/04/2023 08/03/2024 2 2 Encounter Details Date Type Department Care Team (Late st Contact Info) Description 08/19/2023 9:30 AM CDT Office Visit [facility] [place] [address] [place] [address] Sue Sahni CNM [address] [place] [address] Supervision of high risk in third trimester [...] Transfer of care: - Oriented patient to [facility] practice. Reviewed that [facility] is a multidisciplinary institution and her care will be collaborative in fashion with [facility] doctors, CNM, residents, fellows, and S [...] - Weekly BPPs to be shared between [facility] and local OB clinic Delivery planning: [...] given and discussed. Plan weekly BPP in [place]. Pt will return to [facility] on 08/30 for RL2/BPP/Ob visit/GC. Pt discharged stableand ambulatory. Shaunna Nolasco RN documented in this encounter Plan of Treatment Upcoming Encounters Date Type Department Care Team (Late st Contact Info) Description 09/29/2023 2:15 PM CDT Appointment [facility] [place] [address] [place] [phone] Valeria Isabel MD [address] [place], [place] [address] 09/29/2023 2:45 PM CDT Office Visit [facility] M[facility] [address] [place], [place] [address] Valeria Isabel MD [address] [place] [address] 09/29/2023 3:00 PM CDT Office Visit [facility] [place] [address] [place], [place] [address] Sue Sahni CNM [address] [place], [place] [address] Scheduled Referrals Name Type Priority Associated Diagnoses Orde r Schedule [facility] Office Visit Referral Routine: Next available [...] documented as of this encounter Care Teams Hydrographical Technical Officer Relationship Specialty Start Date End Date No Ref-Primary, Physician PCP - General 05/08/23 documented as of this encounter
--- OUTSIDE RECORDS SUMMARY | 2023-09-25 13:04 | XMS_ITS | Encounter Summary ---
Author Organization [place] Address [address] [facility] [place] [address] Care Team Providers Care Cement Despatch Operator Name Role Phone No Ref-Primary, Physician Primary Care Provider Encounter Details Date Type Department Care Team (Late st Contact Info) Description 08/19/2023 Documentation Only [facility] [phone] Edda Ohara LICSW Social History Tobacco Use [...] ADAMARIS met with patient, her partner, and Patient Account Representative today in the [facility] for a NICU Consult. Rosemary knows she is with a boy and they have chosen to name him Aries after his father. Patient Account Representative discussed what is known medically at this time about Aries. Answered parents questions, and discussed what to expect over the first couple of days after Aries is born and admitted to the NICU. ADAMARIS introduced self and role and discussed how ADAMARIS supports families who have babies in the NICU. Also discussed possible options for lodging as Rosemary and Aries live in [place], [place]. ADAMARIS made plan to meet with Rosemary after baby Aries is born to complete a psychosocial assessment and provide supportive intervention. ADAMARIS provided Rosemary and Aries with contact information and encouraged them to be in touch with any questions or needs prior to the of their baby. No additional concerns, questions, or needs identified today. KALEB [place], ROSALINDA Maternal and Child Health Sounding Device Operator M-F 08:00-16:30 on [employer] Office [email or web address] After hours social work can be reached via [facility] After Hours Talent Development Consultant 1620 to 08 Weekend on-site social work can be reached via [facility] Weekend Onsite 08 to 1630 documented in this encounter Plan of Treatment Upcoming Encounters Date Type Department Care Team (Late st Contact Info) Description 09/29/2023 2:15 PM CDT Appointment [facility] Maternal Medicine [facility] [address] [place] [phone] Valeria Isabel MD [facility] [address] [address] 09/29/2023 2:45 PM CDT Office Visit [facility] M[facility] [address] [place], [place] [address] Valeria Isabel MD [address] [address] 09/29/2023 3:00 PM CDT Office Visit [facility] Maternal [facility] [address] [place], [place] [address] Sue Sahni CNM [address] [address] documented as of this encounter Visit Diagnoses Not on filedocumented in this encounter Additional Health Concerns Assessment Noted Time PHQ-9 Depression Total Score: 0 08/19/19 12:54 PM CDT documented as of this encounter Care Teams Cement Despatch Operator Relationship Specialty Start Date End Date No Ref-Primary, Physician PCP - General 05/08/23 documented as of this encounter
--- OUTSIDE RECORDS SUMMARY | 2023-09-25 13:04 | XMS_ITS | Encounter Summary ---
Author Organization [place] Address [address] [facility] [place] [address] Care Team Providers Care Student Services Advisor Name Role Phone No Ref-Primary, Physician [...] Description 09/29/2023 2:15 PM CDT Appointment [facility] [place] [address] [place] [phone] Valeria Isabel MD [address] [address] 09/29/2023 2:45 PM CDT Office Visit [facility] [place] [address] [place], [place] [address] Valeria Isabel MD [address] [address] 09/29/2023 3:00 PM CDT Office Visit [facility] [place] [address] [address] Sue Sahni, LIBIA [address] [place] [address] documented as of this encounter Visit Diagnoses Not on filedocumented in this encounter Care Teams Student Services Advisor Relationship Specialty Start Date End Date No Ref-Primary, Physician PCP - General 05/08/23 documented as of this encounter
--- OUTSIDE RECORDS SUMMARY | 2023-09-25 13:04 | XMS_ITS | Encounter Summary ---
Author Organization [place] Address [address] [place] [address] Care Team Providers Care Workforce Development Specialist Name Role Phone No Ref-Primary, Physician Primary Care Provider Encounter Details Date Type Department Care Team ([facility] st Contact Info) Description 08/19/2023 Office Visit [facility] Services - Heart & Vascular Service Line [address] [place] [phone] Yonatan Black MD [facility] [address] [address] cardiac disease affecting , single or unspecified [...] pleasure of seeing Rosemary Osborne at the [facility] Echocardiography Laboratory in [place] on 08/19/2023 in ongoing consultation for echocardiography [...] cardiology consultation. -- Delivery should occur at [facility]. Thank you for allowing me to participate in Ms. Wilfrido Osborne's care. Please don't hesitate to contact me or the Cardiology team at [facility] with any questions or concerns. I spent a total of 60 minutes on the date of the encounter doing chart review, patient history, documentation, counseling, and coordinating care. Yonatan Black MD Pediatric Cardiology [facility] Review of the result(s) of each unique test - echocardiogram documented in this encounter Plan of Treatment Upcoming Encounters Date Type Department Care Team (Late st Contact Info) Description 09/29/2023 2:15 PM CDT Appointment [facility] Maternal Medicine [address] [place] [address] Valeria Isabel MD [address] [place], [place] [address] 09/29/2023 2:45 PM CDT Office Visit [facility] Maternal Medicine [facility] [address] [place] [address] Valeria Isabel MD [address] [place] [address] 09/29/2023 3:00 PM CDT Office Visit [facility] Maternal Medicine [facility] [address] [place], [place] [address] Sue Sahni [facility] [address] [email or web address] [address] [place], [place] [address] documented as of this encounter Visit Diagnoses Diagnosis cardiac disease affecting , single or unspecified fetus- Primary documented in this encounter Additional Health Concerns Assessment Noted Time PHQ-9 Depression Total Score: 0 08/19/19 12:54 PM CDT documented as of this encounter Care Teams Workforce Development Specialist Relationship Specialty Start Date End Date No Ref-Primary, Physician PCP - General 05/08/23 documented as of this encounter
--- OUTSIDE RECORDS SUMMARY | 2023-09-25 13:04 | XMS_ITS | Encounter Summary ---
Author Organization [place] Address [address] [place] [address]. [place] [address] Care Team Providers Care Shellfish Shucker Name Role Phone No Ref-Primary, Physician Primary Care Provider Encounter Details Date Type Department Care Team (Late st Contact Info) Description 07/14/2023 Office Visit [facility] [address] [place] [address] Carlos Alberto Ott MD [address] [place] [id number] cardiac disease affecting , single or unspecified [...] Ott MD - 07/14/2023 10:20 AM CDT [facility] Consult Note Patient: Rosemary Osborne Date of : 2000 Age: [age] year old Date of Visit: 07/14/2023 PCP: No Ref-Primary, Physician Dear Doctor, I had the pleasure of seeing Rosemary Osborne at the [facility] on 07/14/2023 infetal cardiology consultation for [...] today with Rosemary Osborne and her partner. language interpreter was denied by patient. I discussed the cardiac anatomy, function,physiology, and plans for intervention following delivery. Based on today's echocardiogram, this will likely be a 2-ventricular repair with an arch repair. The left ventricle appears apex forming andmildly small due to the dilatation of the right ventricle in setting of a coarctation of the aorta.I recommended delivery at [facility], with plans for post- echocardiogram to determine [...] care. I spent approximately 50 minutes in amwp-oq-vmcv time reviewing the above considerations. Carlos Alberto Ott M.D. Pediatric Cardiology [facility]'[address], 5th floor, [place] [address] documented in this encounter Plan of Treatment Upcoming Encounters Date Type Department Care Team (Late st Contact Info) Description 09/29/2023 2:15 PM CDT Appointment [facility] Maternal Medicine [facility] [address] [place] [address] Valeria Isabel MD [address] [place], [place] [address] 09/29/2023 2:45 PM CDT Office Visit [facility] Maternal Medicine [facility] [address] [place], [place] [address] Valeria Isabel MD [address] [place], [place] [address] 09/29/2023 3:00 PM CDT Office Visit [facility] Maternal Medicine [facility] [address] [place], [place] [address] Sue Sahni [facility] [address] [address] documented as of this encounter Visit Diagnoses Diagnosis cardiac disease affecting , single or unspecified fetus- Primary documented in this encounter Care Teams Shellfish Shucker Relationship Specialty Start Date End Date No Ref-Primary, Physician PCP - General 05/08/23 documented as of this encounter
--- OUTSIDE RECORDS SUMMARY | 2023-09-25 13:04 | XMS_ITS | Encounter Summary ---
Author Organization [place] Address [address] [place] [address]. [place] [address] Care Team Providers Care Membership Assistant Name Role Phone No Ref-Primary, Physician Primary Care Provider Reason for Referral * (Routine) - Closed Specialty Diagnoses / Procedures Referred By Contac t Referred To Contact Cardiology Diagnoses Anomaly of heart of fetus affecting , antepartum, single or unspecified fetus Procedures Echo (TTE) Complete Amor Leonard MD [address] [place] [address] [facility] [address] [place] [phone] Referral ID Status Reason Start Date Expiration Date Visits Re quested Visits Authorized [id number] Closed 08/19/2023 08/18/2024 1 1 Encounter Details Date Type Department Care Team (Late st Contact Info) Description 08/19/2023 Orders Only [facility] [address] [place] [address] Clinic 12th [place] [address] Amor Leonard MD [address] [place] [address] Anomaly of heart of fetus affecting [...] [facility] Maternal Medicine [facility] [place] [address] [place] [phone] Valeria Isabel MD [address] [place] [address] 09/29/2023 2:45 PM CDT Office Visit [facility] Maternal Medicine [facility] [address] [place], [place] [address] Valeria Isabel MD [address] [place], [place] [phone] 09/29/2023 3:00 PM CDT Office Visit [facility] Maternal Medicine [facility] [address] [place] [address] Sue Sahni [facility] [address] [place] [address] documented as of this encounter Results * ECHO COMPLETE (08/19/2023 11:23 AM CDT) Anatomical Region Laterality Modality Ultrasound 08/19/2023 10:5 5 AM CDT Narrative 08/20/2023 8:33 AM CDT [id number]^HORACIO^AMOR ? Study ID: [id number] ?[facility] ?[facility] ?[address] [address] ?[place] [address] ? Echocardiogram Name: RA NARAYAN Study Date: [...] date: 10/02/2023. Gestational age: 33w5d. Delivery at: [place]. Specific Indication: echocardiogram performed for suspected coarctation [...] to the left atrium. There is laminar xongg-rv-whcw shunting across the foramen ovale. Atrioventricular valves: [...] Procedure Note Yonatan Black MD - 08/20/2023 [id number]^HORACIO^AMOR Study ID:[id number] [address] [address] Echocardiogram Name: RA NARAYAN Study Date: 08/19/2023 [...] Duedate: 10/02/2023. Gestational age: 33w5d. Delivery at: [place]. Specific Indication: echocardiogram performed for suspected coarctation [...] in to the left atrium. There is yjefxgbpzosx-ju-juqo shunting across the foramen ovale. Atrioventricular valves: [...] Physician: Yonatan Black MD 08/20/2023 08:33 AM Aomr Leonard MD CV PEDS ECHO ORDERAB LES [...] documented as of this encounter Care Teams Membership Assistant Relationship Specialty Start Date End Date No Ref-Primary, Physician PCP - General 05/08/23 documented as of this encounter
--- OUTSIDE RECORDS SUMMARY | 2023-09-25 13:04 | XMS_ITS | Encounter Summary ---
Author Organization [place] Address [address] [place] [address] Care Team Providers Care Vp Account Director Name Role Phone No Ref-Primary, Physician Primary Care Provider Reason for Visit * Reason Onset Date Comments Appointment 08/04/2023 Encounter Details Date Type Department Care Team (Late st Contact Info) Description 08/04/2023 Telephone [facility] [place] [address] [place] [address] Shaunna Nolasco, RN Appointment Social History Tobacco [...] Phone call to Rosemary to discuss upcoming [facility] appointments and echo. Pt agreed to come to [place] for multiple appointments on 08/18. Plan: Pt will have weekly BPP starting at 32 weeks. These will be done in [place] unless patient is coming to [facility]. Serial growth q 4 weeks. Pt will come to [facility] on 08/18 for NICU consult, ob visit, echo, BPP. Will discuss delivery date and further planning at this visit. Shaunna Nolasco RN documented in this encounter Plan of Treatment Upcoming Encounters Date Type Department Care Team (Late st Contact Info) Description 09/29/2023 2:15 PM CDT Appointment [facility] Maternal Medicine [facility] [address] [place] [address] Valeria Isabel MD [address] [place], [place] [address] 09/29/2023 2:45 PM CDT Office Visit [facility] M[facility] Medicine [facility] [address] [place], [place] [address] Valeria Isabel MD [address] [address] 09/29/2023 3:00 PM CDT Office Visit [facility] Maternal Medicine [facility] [address] [place], [place] [address] Sue Sahni CN [address] [phone] documented as of this encounter Visit Diagnoses Not on filedocumented in this encounter Care Teams Vp Account Director Relationship Specialty Start Date End Date No Ref-Primary, Physician PCP - General 05/08/23 documented as of this encounter
--- OUTSIDE RECORDS SUMMARY | 2023-09-25 13:04 | XMS_ITS | Encounter Summary ---
Author Organization [place] Address [facility] [place] [address] Care Team Providers Care Journeyman Pipe Welder Name Role Phone No Ref-Primary, Physician Primary Care Provider Reason for Visit * Reason Comments Ultrasound RL2/BPP: CHD, coarctation of aorta Encounter Details Date Type Department Care Team (Late st Contact Info) Description 08/31/2023 2:45 PM CDT Office Visit [facility] Maternal Medicine Center [place] [address] [place], [place] [address] Hetal Parra MD [address] [place] [address] complicated by congenital heart disease, [...] [facility]. For a detailed report of the ultrasound examination, please see the ultrasound report which can be found under the imaging tab. If you have questions regarding today's evaluation or if we can be of further service, please contact the Maternal- Medicine Center. Hetal Parra MD Cork Painter And Grader, WATER MAIN INSTALLER HELPER Maternal- Medicine [phone] (Pager) documented in this encounter Plan of Treatment Upcoming Encounters Date Type Department Care Team (Late st Contact Info) Description 09/29/2023 2:15 PM CDT Appointment [facility] Maternal Medicine [facility] [address] [place] [phone] Valeria Isabel MD [address] [address] 09/29/2023 2:45 PM CDT Office Visit [facility] [address] [place], [place] [address] Valeria Isabel MD [address] [address] 09/29/2023 3:00 PM CDT Office Visit [facility] [address] [place], [place] [address] Sue Sahni [facility] [address] [address] documented as of this encounter Visit Diagnoses Diagnosis complicated by congenital heart disease, single or unspecified fetus- Primary documented in this encounter Additional Health Concerns Assessment Noted Time PHQ-9 Depression Total Score: 0 08/19/19 12:54 PM CDT documented as of this encounter Care Teams Journeyman Pipe Welder Relationship Specialty Start Date End Date No Ref-Primary, Physician PCP - General 05/08/23 documented as of this encounter
--- OUTSIDE RECORDS SUMMARY | 2023-09-25 13:04 | XMS_ITS | Encounter Summary ---
Author Organization [place] Address [address] [facility] [place] [address] Care Team Providers Care Social Services Aide Name Role Phone No Ref-Primary, Physician Primary Care Provider Reason for Referral * Diagnostic Imaging Ultrasound (Routine) - Pending Review Specialty Diagnoses / Procedures Referred By Contac t Referred To Contact Radiology. Diagnoses Congenital heart defect Procedures [facility] Comprehensive Single F/U Swati Hurst MD [address] [place], [place] [address] Referral ID Status Reason Start Date Expiration Date V isits Requested Visits Authorized [id number] Pending Review 06/29/2023 06/28/2024 1 1 Reason for Visit * Diagnostic Imaging Ultrasound (Routine) - Pending Review Specialty Diagnoses / Procedures Referred By Contac t Referred To Contact Radiology. Diagnoses Congenital heart defect Procedures [facility] Comprehensive Single F/U Swati Hurst MD [address] [place], [place] [address] [address] Referral ID Status Reason Start Date Expiration Date V isits Requested Visits Authorized [id number] Pending Review 06/29/2023 06/28/2024 1 1 Encounter Details Date Type Department Care Team (Latest Contact Info) Description 07/31/2023 2:08 PM CDT - 07/31/2023 11:59 PM CDT Hospital Encounter [facility] M[facility] Medicine [facility] [place] [address] [facility] [address] [place] [phone] Jair Sanchez MD [address] [address] Congenital heart defect Discharge Disposition: Home or [...] Info) Description 09/29/2023 2:15 PM CDT Appointment [facility] Medicine [facility] [place] [address] [facility] [place] [address] Valeria Isabel MD [address] [place], [place] [address] [address] [address] 09/29/2023 2:45 PM CDT Office Visit [facility] [place] [address] [place] [address] Valeria Isabel MD [address] [place], [place] [address] [address] [address] 09/29/2023 3:00 PM CDT Office Visit [facility] Maternal Medicine [facility] [address] [place], [place] [address] Sue Sahni CNM [address] [address] documented as of this encounter Procedures Procedure Name Priority Date/Time Associated Diagnosis Comments [facility] COMPREHENSIVE SINGLE F/U Routine 07/31/2023 2:45 PM CDT Congenital heart defect documented in this encounter Results * [facility] US Comprehensive Single F/U (07/31/2023 2:45 [...] ? Study Date: ??07/31/2023 2:19pm Pat. NO: ??[id number] ?Referring ??MD: FRANCIA GILMAN Site: ??[facility] ? Senior Storage Engineer: Justyna Calixto RDMS : ??2000 ?Age: ?? [...] lb 11 ? oz EFW by ?Hadlock ([id number]) Head / Face / Neck Biometry: Exchange Consultant ? 4.0 ? mm CM ?5.2 ? mm ANATOMY ----- The following structures appear abnormal: Heart / Thorax ?4-chamber view: See Echo report by [facility] from 05/20/2023. LVOT view. 3-vessel view. 0-vgqyoe-owzllpm view. The following structures appear normal: Head [...] NARAYAN Study Date: 07/31/2023 2:19pm Pat. NO: [id number] Referring MD: FRANCIA GILMAN Site: [facility] Senior Storage Engineer: Justyna Calixto RDMS : 2000 Age: 22 [...] 3 lb 11 oz EFW by Hadlock ([id number]) Head / Face / Neck Biometry: Exchange Consultant 4.0 mm CM 5.2 mm ANATOMY ----- The following structures appear abnormal: Heart / Thorax 4-chamber view: See Echo reportby [facility] from 05/20/2023. LVOT view. 3-vessel view.4-isgsur-gluruhl view. The following structures appear normal: Head [...] fluid volume appeared normal. Swati Hurst MD [facility] ORDER[facility] S documented in this encounter Visit Diagnoses Diagnosis Congenital heart defect Unspecified congenital anomaly of heart documented in this encounter Care Teams Social Services Aide Relationship Specialty Start Date End Date No Ref-Primary, Physician PCP - General 05/08/23 documented as of this encounter
--- OUTSIDE RECORDS SUMMARY | 2023-09-25 13:04 | XMS_ITS | Encounter Summary ---
Author Organization [place] Address [address] [facility] [place] [address] Care Team Providers Care Online Media Buyer Name Role Phone No Ref-Primary, Physician Primary Care Provider Hetal Parra MD Unavailable [phone] Encounter Details Date Type Department Care Team (Late st Contact Info) Description 08/17/2023 MyC Medical Advice [facility]ty [facility] [address] [place] [address] Soumya Rodriguez LPN Social History [...] Description 09/29/2023 2:15 PM CDT Appointment [facility] Maternal Medicine [facility] [address] [place] [address] Valeria Isabel MD [address] [place], [place] [address] 09/29/2023 2:45 PM CDT Office Visit [facility] M[facility] Medicine [facility] [place] [address] [place] [address] Valeria Isabel MD [address] [address] 09/29/2023 3:00 PM CDT Office Visit [facility] Maternal Medicine [facility] [address] [place], [place] [address] Sue Sahni [facility] [address] [address] documented as of this encounter Visit Diagnoses Not on filedocumented in this encounter Care Teams Online Media Buyer Relationship Specialty Start Date End Date No Ref-Primary, Physician PCP - General 05/08/23 Hetal Parra MD [address] [address] Assigned OBGYN Provider 09/06/23 documented as of this encounter
--- OUTSIDE RECORDS SUMMARY | 2023-09-25 13:04 | XMS_ITS | Encounter Summary ---
Author Organization [place] Address [address] [place] [address] Care Team Providers Care Counseling Department Chair Name Role Phone No Ref-Primary, Physician Primary [...] Info) Description 09/29/2023 2:15 PM CDT Appointment [facility] Maternal Medicine Center [place] [address] [place] [phone] Valeria Isabel MD [address] [address] 09/29/2023 2:45 PM CDT Office Visit [facility] Maternal Medicine [facility] [place] [address] [place], [place] [address] Valeria Isabel MD [address] [address] 09/29/2023 3:00 PM CDT Office Visit [facility] Maternal Medicine [facility] [place] [address] [place] [address] Sue Sahni, [place] [address] [place] [address] documented as of this encounter Visit Diagnoses Not on filedocumented in this encounter Care Teams Counseling Department Chair Relationship Specialty Start Date End Date No Ref-Primary, Physician PCP - General 05/08/23 documented as of this encounter
--- OUTSIDE RECORDS SUMMARY | 2023-09-25 13:04 | XMS_ITS | Encounter Summary ---
Author Organization [place] Address [address] [place] [address]. [place] [address] Care Team Providers Care Order Entry Specialist Name Role Phone No Ref-Primary, Physician Primary Care Provider Reason for Referral * (Routine) - Closed Specialty Diagnoses / Procedures Referred By Contac t Referred To Contact Cardiology Diagnoses Anomaly of heart of fetus affecting , antepartum, single or unspecified fetus Procedures Echo (TTE) Complete Yifan Clancy MD [address] [place] [address] [facility] [address] [place] [phone] Referral ID Status Reason Start Date Expiration Date Visits Re quested Visits Authorized [id number] Closed 07/14/2023 07/06/2024 1 1 Encounter Details Date Type Department Care Team (Late st Contact Info) Description 07/07/2023 Orders Only [facility] [address] [place] [address] [facility] [address] [place] [address] Yifan Clancy MD [address] [place] [address] Anomaly of heart of fetus affecting [...] Info) Description 09/29/2023 2:15 PM CDT Appointment [facility] [place] [address] [place] [address] Valeria Isabel MD [address] [place], [place] [address] 09/29/2023 2:45 PM CDT Office Visit [facility] [place] [address] [place], [place] [address] Valeria Isabel MD [address] [place] [address] 09/29/2023 3:00 PM CDT Office Visit [facility] Maternal Medicine [facility] [address] [place] [address] Sue Sahni [facility] [address] [place] [address] documented as of this encounter Results * ECHO COMPLETE (07/14/2023 10:10 AM CDT) Anatomical Region Laterality Modality Echocardiography 07/14/2023 8:18 AM CDT Narrative 07/14/2023 10:23 AM CDT [id number]^ASTON^YIFAN ? Study ID: [id number] ?[facility] ?[facility] ?[address] ?[place] [address] ? Echocardiogram Name: RA NARAYAN Study Date: [...] gradient. Delivery is recommended at [facility]. Cardiology consultation and echocardiogram is recommended immediately [...] to the left atrium. There is laminar fwmuu-if-scdb shunting across the foramen ovale. Atrioventricular valves: [...] Note Carlos Alberto Ott MD - 07/14/2023 [id number]^ASTON^YIFAN Study ID:[id number] [facility] [place] [address] Echocardiogram Name: RA NARAYAN Study Date: 07/14/2023 [...] blood. pressure gradient. Delivery is recommended [facility]. Cardiology consultation and echocardiogram isrecommended immediately [...] in to the left atrium. There is pyzqaytljatt-dy-oysj shunting across the foramen ovale. Atrioventricular valves: [...] fetus documented in this encounter Care Teams Order Entry Specialist Relationship Specialty Start Date End Date No Ref-Primary, Physician PCP - General 05/08/23 documented as of this encounter
--- OUTSIDE RECORDS SUMMARY | 2023-09-25 13:04 | XMS_ITS | Encounter Summary ---
Author Organization [place] Address [address] [place] [address] Care Team Providers Care Sterile Tech Name Role Phone No Ref-Primary, Physician Primary Care Provider Reason for Referral * (Routine) - Closed Specialty Diagnoses / Procedures Referred By Sadeac t Referred To Contact Cardiology Diagnoses Anomaly of heart of fetus affecting , antepartum, single or unspecified fetus Procedures Echo (TTE) Complete Carlos Alberto Leonard MD [address] [place] [id number] [facility] [address] [place] [phone] Referral ID Status Reason Start Date Expiration Date Visits Re quested Visits Authorized [id number] Closed 08/19/2023 08/18/2024 1 1 Reason for Visit * (Routine) - Closed Specialty Diagnoses / Procedures Referred By Contac t Referred To Contact Cardiology Diagnoses Anomaly of heart of fetus affecting , antepartum, single or unspecified fetus Procedures Echo (TTE) Carlos Alberto Anderson MD [address] [place] [phone] [facility] [address] [place] [phone] Referral ID Status Reason Start Date Expiration Date Visits Re quested Visits Authorized [id number] Closed 08/19/2023 08/18/2024 1 1 Encounter Details Date Type Department Care Team (Latest Contact Info) Description 08/19/2023 9:25 AM CDT - 08/19/2023 11:44 AM CDT Hospital Encounter [facility] [address] [place] [phone] Leyda Guzman MD [address] [place] [phone] Urmfmusfet Anomaly of heart of fetus affecting [...] Info) Description 09/29/2023 2:[address] [facility] [place] [address] [place] [phone] Valeria Isabel MD [address] [place] [phone] 09/29/2023 2:45 PM CDT Office Visit [facility] [place] [address] [facility] [address] [place], [place] [address] Valeria Isabel MD [address] [place], [place] [address] [address] [address] 09/29/2023 3:00 PM CDT Office Visit [facility] [place] [address] [place] [address] Sue Sahni, LIBIA [address] [place] [address] documented as of this encounter Procedures Procedure Name Priority Date/Time Associated Diagnosis Comments ECHO COMPLETE Routine 08/19/2023 1 1:23 AM CDT Anomaly of heart of fetus affecting , antepartum, single or unspecified fetus documented in this encounter Results * ECHO COMPLETE (08/19/2023 11:23 AM CDT) Anatomical Region Laterality Modality Ultrasound 08/19/2023 10:5 5 AM CDT Narrative 08/20/2023 8:33 AM CDT [id number]^LEONARD^CARLOS ALBERTO ? Study ID: [id number] ?[facility] ?[facility] ?[address] ?[place] [address] ? Echocardiogram Name: GRZEGORZ AN, ROSEMARY Nenita Study Date: 08/19/2023 10:55 AM ?Patient Location: [facility] Gender: Female ? Patient Class: Outpatient : 2000 ?Age: 22 yrs Ordering Provider: CARLOS ALBERTO LEONARD Referring Provider: FRANCIA GILMAN Performed By: Fabiola Sahni Physician: Yonatan Black MD Reason For Study: Anomaly of heart of fetus affecting , antepartum, singl Data: Number of fetuses: This is a law gestation. Due date: 10/02/2023. Gestational age: 33w5d. Delivery at: [facility]. Specific Indication: echocardiogram performed for suspected coarctation of the aorta. CONCLUSIONS Juan's complex. Coarctation of the aorta with posterior [...] to the patient. Delivery is recommended at [facility]. Cardiology consultation and echocardiogram is recommended immediately [...] to the left atrium. There is laminar qgmov-gp-nyww shunting across the foramen ovale. Atrioventricular valves: [...] Procedure Note Yonatan Black MD - 08/20/2023 [id number]^HORACIO^CARLOS ALBERTO Study ID:[id number] [facility] [address] [address] Echocardiogram Name: ROSEMARY NARAYAN Study Date: 08/19/2023 10:55 AM Patient Location:[facility] Gender: Female Patient Class:Outpatient : 2000 Age: 22 yrs Ordering Provider: CARLOS ALBERTO LEONARD Referring Provider: FRANCIA GILMAN Performed By: Fabiola Sahni Physician: Yonatan Black MD Reason For Study: Anomaly of heart of fetus affecting ,antepartum, singl Data: Number of fetuses: This is a law gestation. Duedate: 10/02/2023. Gestational age: 33w5d. Delivery at: [facility]. Specific Indication: echocardiogram performed for suspected coarctation [...] to the patient. Delivery is recommended at [facility]. Cardiology consultation and echocardiogram is recommended immediately [...] in to the left atrium. There is kwsvjootoehh-ug-dllj shunting across the foramen ovale. Atrioventricular valves: [...] documented as of this encounter Care Teams Sterile Tech Relationship Specialty Start Date End Date No Ref-Primary, Physician PCP - General 05/08/23 documented as of this encounter
--- OUTSIDE RECORDS SUMMARY | 2023-09-25 13:04 | XMS_ITS | Encounter Summary ---
Author Organization [place] Address [address] [facility] [place] [address] Care Team Providers Care Blood Bank Credit Clerk Name Role Phone No Ref-Primary, Physician Primary Care Provider Reason for Visit * Reason Comments Ultrasound L2- CHD Encounter Details Date Type Department Care Team (Late st Contact Info) Description 07/31/2023 2:45 PM CDT Office Visit [facility] [place] [address] [facility] [address] [place] [address] Jair Sanchez MD [address] [place] [address] complicated by congenital heart disease, [...] for details of today's US at the [facility]. Jair Sanchez MD Maternal- Medicine documented in this encounter Nursing Notes * Soumya Brandon, RN - 07/31/2023 2:45 PM CDT Patient reports good movement, denies contractions, leaking of fluid, or bleeding. EDILBERTO HAREPR MD, see their note in Epic. documented in this encounter Plan of Treatment Upcoming Encounters Date Type Department Care Team (Late st Contact Info) Description 09/29/2023 2:15 PM CDT Appointment [facility] Maternal Medicine [facility] [address] [place] [phone] Valeria Isabel MD [address] [id number] 09/29/2023 2:45 PM CDT Office Visit [facility] [address] [place], [place] [address] Valeria Isabel MD [address] [place], [place] [address] 09/29/2023 3:00 PM CDT Office Visit [facility] [place] [address] [place], [place] [address] Sue Sahni CN [address] [id number] documented as of this encounter Visit Diagnoses Diagnosis complicated by congenital heart disease, single or unspecified fetus- Primary documented in this encounter Care Teams Blood Bank Credit Clerk Relationship Specialty Start Date End Date No Ref-Primary, Physician PCP - General 05/08/23 documented as of this encounter
--- OUTSIDE RECORDS SUMMARY | 2023-09-25 13:04 | XMS_ITS | Encounter Summary ---
Author Organization [place] Address [address] [facility] [place] [address] Care Team Providers Care Seafood Processor Name Role Phone No Ref-Primary, Physician Primary Care Provider Reason for Visit * Reason Comments Consult NICU consult: CHD * Consultation (Routine: Next available opening) - Pending Review Specialty Diagnoses / Procedures Referred By Contac t Referred To Contact Diagnoses related condition, antepartum Jair Sanchez MD [address] [address] Referral ID Status Reason Start Date Expiration Date V isits Requested Visits Authorized [id number] Pending Review 08/04/2023 08/03/2024 2 2 Encounter Details Date Type Department Care Team (Late st Contact Info) Description 08/19/2023 10:00 AM CDT Office Visit [facility] [place] [address] [place] [address] Sue Sahni CNM [address] [facility] [address] [place] [address] related condition, antepartum Social History [...] Osborne and her partner, Aries, in the [facility] clinic at the [facility] for consultation at the request of [...] Ms. Rosemary Osborne in the NICU at [facility]. Please reach out if there are [...] Info) Description 09/29/2023 2:15 PM CDT Appointment [facility] Maternal Medicine [facility] [address] [place] [address] Valeria Isabel MD [address] [place], [place] [address] 09/29/2023 2:45 PM CDT Office Visit [facility] Maternal Medicine [facility] [address] [place], [place] [address] Valeria Isabel MD [address] [id number] 09/29/2023 3:00 PM CDT Office Visit [facility] Maternal Medicine [facility] [address] [place], [place] [address] Sue Sahni [facility] [address] [address] documented as of this encounter Visit Diagnoses Diagnosis related condition, antepartum documented in this encounter Additional Health Concerns Assessment Noted Time PHQ-9 Depression Total Score: 0 08/19/19 12:54 PM CDT documented as of this encounter Care Teams Seafood Processor Relationship Specialty Start Date End Date No Ref-Primary, Physician PCP - General 05/08/23 documented as of this encounter
--- OUTSIDE RECORDS SUMMARY | 2023-09-25 13:04 | XMS_ITS | Encounter Summary ---
Author Organization [place] Address [address] [facility] [place] [address] Care Team Providers Care Core Composer Machine Tender Name Role Phone No Ref-Primary, Physician Primary Care Provider Reason for Referral * Consultation (Routine: Next available opening) - Pending Review Specialty Diagnoses / Procedures Referred By Contmaile t Referred To Contact Diagnoses Abnormal ultrasound Swati Hurst MD [address] [facility] [address] [place] [address] Referral ID Status Reason Start Date Expiration Date V isits Requested Visits Authorized [id number] Pending Review 08/04/2023 08/03/2024 1 1 Encounter Details Date Type Department Care Team (Late st Contact Info) Description 08/04/2023 Orders Only [facility] [place] [address] [place] [address] Louise Haley GC [address] [place], [place] [phone] Abnormal ultrasound (Primary Dx) Social History Tobacco [...] genetic counseling to be added at upcoming [facility] appointment to review recommendation with patient. Louise Haley MS, [facility] Licensed Genetic Counselor [facility] [email or web address] documented in this encounter Plan of Treatment Upcoming Encounters Date Type Department Care Team (Late st Contact Info) Description 09/29/2023 2:15 PM CDT Appointment [facility] Medicine [facility] [address] [place] [address] Valeria Isabel MD [address] [address] 09/29/2023 2:45 PM CDT Office Visit [facility] Medicine [facility] [address] [place], [place] [address] Valeria Isabel MD [address] [address] 09/29/2023 3:00 PM CDT Office Visit [facility] Maternal Medicine [facility] [address] [place], [place] [address] Sue Sahni CNM [address] [address] Scheduled Referrals Name Type Priority Associated Diagnoses Orde r Schedule [facility] Genetic Counseling Referral Routine: Next available opening Abnormal ultrasound Expected: 08/04/2023 (Approximate), Expires: 08/03/2024 documented as of this encounter Visit Diagnoses Diagnosis Abnormal ultrasound- Primary Abnormal findings on screening documented in this encounter Care Teams Core Composer Machine Tender Relationship Specialty Start Date End Date No Ref-Primary, Physician PCP - General 05/08/23 documented as of this encounter
--- OUTSIDE RECORDS SUMMARY | 2023-09-25 13:04 | XMS_ITS | Encounter Summary ---
Author Organization [place] Address [facility] [place] [address] Care Team Providers Care Template Clerk Name Role Phone No Ref-Primary, Physician Primary Care Provider Reason for Visit * Reason Onset Date Comments Appointment 08/03/2023 Encounter Details Date Type Department Care Team (Late st Contact Info) Description 08/03/2023 Telephone [facility] [place] [address] [place] [address] Shaunna Nolasco, RN Appointment Social History Tobacco [...] appointments, weekly BPP, visits, and delivery at [facility]. Offered patient to move echo from 08/10 to 08/11 to coordinate a BPP and visit with MFM coordinator at [place]. Pt will call back after checking with her spouse. Shaunna Nolasco RN documented in this encounter Plan of Treatment Upcoming Encounters Date Type Department Care Team (Late st Contact Info) Description 09/29/2023 2:15 PM CDT Appointment [facility] Maternal Medicine [facility] [address] [place] [address] Valeria Isabel MD [address] [place], [place] [address] 09/29/2023 2:45 PM CDT Office Visit [facility] Maternal Medicine [facility] [address] [place], [place] [address] Valeria Isabel MD [address] [address] 09/29/2023 3:00 PM CDT Office Visit [facility] Medicine [facility] [address] [place], [place] [address] Sue Sahni CN [address] [facility] [address] [place], [place] [address] documented as of this encounter Visit Diagnoses Not on filedocumented in this encounter Care Teams Template Clerk Relationship Specialty Start Date End Date No Ref-Primary, Physician PCP - General 05/08/23 documented as of this encounter
--- OUTSIDE RECORDS SUMMARY | 2023-09-25 13:04 | XMS_ITS | Encounter Summary ---
Author Organization [place] Address [address] [facility] [address] Care Team Providers Care Paleology Teacher Name Role Phone No Ref-Primary, Physician [...] CDT Appointment [facility] [place] [address] [place] [phone] Valeria Isabel MD [address] [address] 09/29/2023 2:45 PM CDT Office Visit [facility] [place] [address] [place], [place] [address] Valeria Isabel MD [address] [facility] [address] [place], [place] [address] 09/29/2023 3:00 PM CDT Office Visit [facility] Maternal Medicine [facility] [address] [place], [place] [address] Sue Sahni, EDMUNDO [address] [place] [address] documented as of this encounter Visit Diagnoses Not on filedocumented in this encounter Additional Health Concerns Assessment Noted Time PHQ-9 Depression Total Score: 0 08/19/19 24 12:54 PM CDT documented as of this encounter Care Teams Paleology Teacher Relationship Specialty Start Date End Date No Ref-Primary, Physician PCP - General 05/08/23 documented as of this encounter
--- OUTSIDE RECORDS SUMMARY | 2023-09-25 13:04 | XMS_ITS | Encounter Summary ---
Author Organization [place] Address [address] [facility] [place] [address] Care Team Providers Care Coil Maker Name Role Phone No Ref-Primary, Physician Primary Care Provider Reason for Referral * Diagnostic Imaging Ultrasound (Routine) - Pending Review Specialty Diagnoses / Procedures Referred By Contac t Referred To Contact Radiology. Diagnoses related condition, antepartum Procedures [facility] US Comprehensive Single F/U Jair Sanchez MD [address] [place] [address] Referral ID Status Reason Start Date Expiration Date V isits Requested Visits Authorized [id number] Pending Review 08/03/2023 08/02/2024 1 1 Reason for Visit * Diagnostic Imaging Ultrasound (Routine) - Pending Review Specialty Diagnoses / Procedures Referred By Contac t Referred To Contact Radiology. Diagnoses related condition, antepartum Procedures [facility] US Comprehensive Single F/U Jair Sanchez MD [address] [place] [address] Referral ID Status Reason Start Date Expiration Date V isits Requested Visits Authorized [id number] Pending Review 08/03/2023 08/02/2024 1 1 Encounter Details Date Type Department Care Team (Latest Contact Info) Description 08/31/2023 2:13 PM CDT - 08/31/2023 11:59 PM CDT Hospital Encounter [facility] [place] [address] [place] [phone] Hetal Parra MD [address] [address] related condition, antepartum Discharge Disposition: Home or [...] Info) Description 09/29/2023 2:15 PM CDT Appointment [facility] Maternal Medicine [facility] [address] [place] [phone] Valeria Isabel MD [address] [address] 09/29/2023 2:45 PM CDT Office Visit [facility] Maternal Medicine [facility] [address] [place], [place] [address] Valeria Isabel MD [address] [address] 09/29/2023 3:00 PM CDT Office Visit [facility] [place] [address] [place] [address] Sue Sahni, LIBIA [address] [place] [address] documented as of this encounter Procedures Procedure Name Priority Date/Time Associated Diagnosis Comments [facility] US COMPREHENSIVE SINGLE F/U Routine 08/31/2023 2:52 PM CDT related condition, antepartum documented in this encounter Results * [facility] US Comprehensive Single F/U (08/31/2023 2:52 PM [...] ? Study Date: ??08/31/2023 2:23pm Pat. NO: ??[id number] ?Referring ??MD: FRANCIA GILMAN Site: ? [employer] Property Underwriter: Kassie Jackson RDMS : ??2000 ?Age: ?? [...] ?oz Head / Face / Neck Biometry: Cook Boat ?4.8 ? mm CM ? 6.2 ? mm ANATOMY ----- The following structures appear abnormal: Heart / Thorax ?4-chamber view: coarctation of the aorta. LVOT view. 6-awgrcw-fzwsjwt view. The following structures appear normal: Head [...] movements 2: tone 2: Amniotic fluid volume / Biophysical profile score MATERNAL STRUCTURES ----- Cervix ?Suboptimal Right Ovary ?Not examined Left Ovary ?Not examined RECOMMENDATION ----- Your patient was seen today for ultrasound assessment and a return OB visit with our office. Please see documentation in Epic for full details from today's visit and ongoing recommendations. Continue weekly surveillance (scheduled with [place]). She is scheduled for induction on 09/27. If you have questions regarding today's evaluation or if we can be of further service, please contact the Maternal- Medicine Center. anomalies may be present but not detected Procedure Note Hetal Parra MD - 09/01/2023 Comp Follow Up ----- Pat. Name: RA NARAYAN Study Date: 08/31/2023 2:23pm Pat. NO: [id number] Referring MD: FRANCIA GILMAN Site: [employer] Underwriter: Kassie JacksonPHUONG : 2000 Age: 23 ----- INDICATION ----- [...] 12oz Head / Face / Neck Biometry: Cook Boat 4.8mm CM 6.2mm ANATOMY ----- The following structures appear abnormal: Heart / Thorax 4-chamber view: coarctation of theaorta. LVOT view. 2-iuwbys-zsubfix view. The following structures appear normal: Head [...] The BPP was 8/8. Jair Sanchez MD [facility] ORDERABL ES documented in this encounter Visit Diagnoses Diagnosis related condition, antepartum documented in this encounter Additional Health Concerns Assessment Noted Time PHQ-9 Depression Total Score: 0 08/19/19 24 12:54 PM CDT documented as of this encounter Care Teams Coil Maker Relationship Specialty Start Date End Date No Ref-Primary, Physician PCP - General 05/08/23 documented as of this encounter
--- OUTSIDE RECORDS SUMMARY | 2023-09-25 13:04 | XMS_ITS | Encounter Summary ---
Author Organization [place] Address [address] [facility] [place] [address] Care Team Providers Care Jeep Mechanic Name Role Phone No Ref-Primary, Physician [...] Info) Description 09/29/2023 2:15 PM CDT Appointment [facility] M[facility] Medicine [facility] [place] [address] [place] [phone] Valeria Isabel MD [address] [address] 09/29/2023 2:45 PM CDT Office Visit [facility] [place] [address] [place], [place] [address] Valeria Isabel MD [address] [address] 09/29/2023 3:00 PM CDT Office Visit [facility] [place] [address] [place] [address] Sue Sahni, LIBIA [address] [place] [address] documented as of this encounter Visit Diagnoses Not on filedocumented in this encounter Care Teams Jeep Mechanic Relationship Specialty Start Date End Date No Ref-Primary, Physician PCP - General 05/08/23 documented as of this encounter
--- OUTSIDE RECORDS SUMMARY | 2023-09-25 13:04 | XMS_ITS | Encounter Summary ---
Author Organization [place] Address [address] [facility] [place] [address] Care Team Providers Care Multimedia Editor Name Role Phone No Ref-Primary, Physician Primary Care Provider Reason for Referral * Diagnostic Imaging Ultrasound (Routine) - Pending Review Specialty Diagnoses / Procedures Referred By Contac t Referred To Contact Radiology. Diagnoses related condition, antepartum Procedures [facility] Jair Patel MD [address] [address] Referral ID Status Reason Start Date Expiration Date V isits Requested Visits Authorized [id number] Pending Review 08/04/2023 08/03/2024 1 1 Reason for Visit * Diagnostic Imaging Ultrasound (Routine) - Pending Review Specialty Diagnoses / Procedures Referred By Contac t Referred To Contact Radiology. Diagnoses related condition, antepartum Procedures [facility] Jair Patel MD [address] [address] Referral ID Status Reason Start Date Expiration Date V isits Requested Visits Authorized [id number] Pending Review 08/04/2023 08/03/2024 1 1 Encounter Details Date Type Department Care Team (Latest Contact Info) Description 08/19/2023 11:45 AM CDT - 08/19/2023 11:59 PM CDT Hospital Encounter [facility] [address] [place] [phone] Leyda Guzman MD [address] [id number] related condition, antepartum Discharge Disposition: Home or [...] CDT Appointment [facility] [place] [address] [place] [phone] Valeria Isabel MD [address] [address] 09/29/2023 2:45 PM CDT Office Visit [facility] [place] [address] [place], [place] [address] Valeria sIabel MD [address] [address] 09/29/2023 3:00 PM CDT Office Visit [facility] [place] [address] [place], [place] [address] Sue Barillas CNM [address] [facility] [address] [place] [address] documented as of this encounter Procedures Procedure Name Priority Date/Time Associated Diagnosis Comments MFM BPP SINGLE Routine 08/19/2023 12:31 PM CDT related condition, antepartum documented in this encounter Results * MFM BPP Single (08/19/2023 12:31 PM CDT) Anatomical Region Laterality Modality Ultrasound 08/19/2023 12:1 1 PM CDT Impressions 08/19/2023 4:47 PM CDT IMPRESSION ----- 1) Estrada intrauterine at 33w 5d gestational age. 2) The BPP is reassuring. 3) The amniotic fluid volume appeared normal. Narrative 08/19/2023 4:47 PM CDT ?BPP ----- Pat. Name: RA NARAYAN ? Study Date: ??08/19/2023 12:11pm Pat. NO: ??[id number] ?Referring ??MD: SUE BARILLAS Site: ??[facility] ? Office Administration: Molly Bernal RDMS : ??2000 ?Age: ?? [...] RA Study Date: 08/19/2023 12:11pm Pat. NO: [id number] Referring MD: SUE BARILLAS Site: [facility] Office Administration: Molly Bernal RDMS : 2000 Age: 22 [...] fluid volume appeared normal. Jair Sanchez MD [facility] ORDERABL ES documented in this encounter Visit Diagnoses Diagnosis related condition, antepartum documented in this encounter Additional Health Concerns Assessment Noted Time PHQ-9 Depression Total Score: 0 08/19/19 24 12:54 PM CDT documented as of this encounter Care Teams Multimedia Editor Relationship Specialty Start Date End Date No Ref-Primary, Physician PCP - General 05/08/23 documented as of this encounter
--- OUTSIDE RECORDS SUMMARY | 2023-09-25 13:04 | XMS_ITS | Encounter Summary ---
Author Organization [place] Address [address] [facility] [place] [address] Care Team Providers Care Pattern Drafter Name Role Phone No Ref-Primary, Physician Primary Care Provider Reason for Visit * Reason Comments Genetic Counseling CHD * Consultation (Routine: Next available opening) - Pending Review Specialty Diagnoses / Procedures Referred By Contac t Referred To Contact Diagnoses Abnormal ultrasound Swati Hurst MD [address] [address] Referral ID Status Reason Start Date Expiration Date V isits Requested Visits Authorized [id number] Pending Review 08/04/2023 08/03/2024 1 1 Encounter Details Date Type Department Care Team (Late st Contact Info) Description 08/31/2023 3:00 PM CDT Office Visit [facility] [place] [address] [place], [place] [phone] Hetal Parra MD [address] [facility] [address] [place], [place] [address] Adriana Gómez GC [address] [place] [address] Abnormal ultrasound (Primary Dx); Encounter [...] Gómez GC - 08/31/2023 3:[address] [facility] [place] Genetic Counseling Consult Patient: Rosemary Osborne Date of : 2000 Date of Service: 08/31/23 Rosemary Osborne was seen at [facility] for genetic consultation to discuss the [...] with limited G-bands on cord blood testing ([id number]). We discussed possible results including positive, negative, and uncertainty. Array cannot completely rule outthe possibility of all genetic conditions such as single gene disorders. It was a pleasure to be involved with Rosemary 's care. Diat-ng-xptp time of the meeting was <15 minutes. Adriana Gómez MS, [facility] Licensed Genetic Counselor [facility] Pager: [phone] Office: [phone] documented in this encounter Plan of Treatment Upcoming Encounters Date Type Department Care Team (Late st Contact Info) Description 09/29/2023 2:15 PM CDT Appointment [facility] [address] [place] [address] Valeria Isabel MD [address] [place], [place] [address] 09/29/2023 2:45 PM CDT Office Visit [facility] [address] [place], [place] [address] Valeria Isabel MD [address] [place], [place] [address] 09/29/2023 3:00 PM CDT Office Visit [facility] [address] [place], [place] [address] Sue Sahni [facility] [address] [place], [place] [address] documented as of this encounter Visit Diagnoses Diagnosis Abnormal ultrasound- Primary Abnormal findings on screening Encounter for procreative genetic counseling and testing documented in this encounter Additional Health Concerns Assessment Noted Time PHQ-9 Depression Total Score: 0 08/19/19 12:54 PM CDT documented as of this encounter Care Teams Pattern Drafter Relationship Specialty Start Date End Date No Ref-Primary, Physician PCP - General 05/08/23 documented as of this encounter
--- OUTSIDE RECORDS SUMMARY | 2023-09-25 13:04 | XMS_ITS | Encounter Summary ---
Author Organization [place] Address [address] [facility] [place] [address] Care Team Providers Care Physical Fitness Teacher Name Role Phone No Ref-Primary, Physician Primary Care Provider Reason for Visit * Reason Comments Ultrasound BPP: CHD Encounter Details Date Type Department Care Team (Late st Contact Info) Description 08/19/2023 12:15 PM CDT Office Visit [facility] [place] [address] [place], [place] [phone] Leyda Guzman MD [address] [place] [address] complicated by congenital heart disease, [...] CDT Appointment [facility] [address] [place] [phone] Valeria Isabel MD [address] [place], [place] [address] 09/29/2023 2:45 PM CDT Office Visit [facility] [address] [place], [place] [address] Valeria Isabel MD [address] [id number] 09/29/2023 3:00 PM CDT Office Visit [facility] [address] [place], [place] [address] Sue Sahni [facility] [address] [place], [place] [address] documented as of this encounter Visit Diagnoses Diagnosis complicated by congenital heart disease, single or unspecified fetus- Primary documented in this encounter Additional Health Concerns Assessment Noted Time PHQ-9 Depression Total Score: 0 08/19/19 12:54 PM CDT documented as of this encounter Care Teams Physical Fitness Teacher Relationship Specialty Start Date End Date No Ref-Primary, Physician PCP - General 05/08/23 documented as of this encounter
--- OUTSIDE RECORDS SUMMARY | 2023-09-25 13:04 | XMS_ITS | Encounter Summary ---
Author Organization [place] Address [address] [place] [address] Care Team Providers Care Body And Frame Technician Name Role Phone No Ref-Primary, Physician Primary Care Provider Reason for Referral * Diagnostic Imaging Ultrasound (Routine) - Pending Review Specialty Diagnoses / Procedures Referred By Contac t Referred To Contact Radiology. Diagnoses related condition, antepartum Procedures [facility] US Comprehensive Single F/U Jair Sanchez MD [address] [place] [address] [place] [address] Referral ID Status Reason Start Date Expiration Date V isits Requested Visits Authorized [id number] Pending Review 08/03/2023 08/02/2024 1 1 Encounter Details Date Type Department Care Team (Late st Contact Info) Description 08/03/2023 Orders Only [facility] [place] [address] [address] Shaunna Nolasco RN related condition, antepartum (Primary [...] 2:15 PM CDT Appointment [facility] Medicine [facility] [address] [place] [phone] Valeria Isabel MD [address] [place] [address] [place] [id number] 09/29/2023 2:45 PM CDT Office Visit [facility] Medicine [facility] [address] [place], [place] [address] Valeria Isabel MD [address] [place] [address] 09/29/2023 3:00 PM CDT Office Visit [facility] Medicine [facility] [address] [place] [address] Sue Sahni [facility] [address] [place] [address] [place] [phone] documented as of this encounter Results * [facility] US Comprehensive Single F/U (08/31/2023 2:52 [...] ? Study Date: ??08/31/2023 2:23pm Pat. NO: ??[id number] ?Referring ??MD: FRANCIA GILMAN Site: ? Basin Operator: Kassie aJckson RDMS : ??2000 ?Age: ?? 23 ----- [...] ?oz Head / Face / Neck Biometry: Senior It Specialist ?4.8 ? mm CM ? 6.2 ? mm ANATOMY ----- The following structures appear abnormal: Heart / Thorax ?4-chamber view: coarctation of the aorta. LVOT view. 1-rpqvis-gbtdsss view. The following structures appear normal: Head [...] ongoing recommendations. Continue weekly surveillance (scheduled with [facility]). She is scheduled for induction on 09/27. If you have questions regarding today's evaluation or if we can be of further service, please contact the M[facility] Center. anomalies may be present but not detected Procedure Note Hetal Parra MD - 09/01/2023 Comp Follow Up ----- Pat. Name: RA NARAYAN Study Date: 08/31/2023 2:23pm Pat. NO: [id number] Referring MD: FRANCIA GILMAN Site: Basin Operator: Kassie Jackson RDMS : 2000 Age: 23 ----- INDICATION ----- Congenital Heart Defect. METHOD ----- Transabdominal ultrasound examination. View: Sufficient ----- [place] . Number of fetuses: 1 DATING ----- [...] 12oz Head / Face / Neck Biometry: Senior It Specialist 4.8mm CM 6.2mm ANATOMY ----- The following structures appear abnormal: Heart / Thorax 4-chamber view: coarctation of theaorta. LVOT view. 7-fwlkte-yrghxqd view. The following structures appear normal: Head [...] andongoing recommendations. Continue weekly surveillance (scheduled with [facility]). She isscheduled for induction on 09/27. If [...] volume appeared normal. 6. The BPP was 8/. Jair Sanchez MD [facility] US ORDERABL ES documented in this encounter Visit Diagnoses Diagnosis related condition, antepartum- Primary related condition, antepartum documented in this encounter Care Teams Body And Frame Technician Relationship Specialty Start Date End Date No Ref-Primary, Physician PCP - General 05/08/23 documented as of this encounter
--- OUTSIDE RECORDS SUMMARY | 2023-09-25 13:05 | XMS_ITS | Encounter Summary ---
Author Organization [place] Address [address] [place] [address] Care Team Providers Care Braille Duplicating Machine Operator Name Role Phone No Ref-Primary, Physician Primary Care Provider Reason for Referral * Diagnostic Imaging Ultrasound (Routine) - Pending Review Specialty Diagnoses / Procedures [facility] Referred To Contact Radiology. Diagnoses abnormality affecting management of mother, single or unspecified fetus Procedures [facility] US Comprehensive Single F/U Swati Hurst MD [address] [place] [address] Referral ID Status Reason Start Date Expiration Date V isits Requested Visits Authorized [id number] Pending Review 06/01/2023 05/31/2024 1 1 Reason for Visit * Diagnostic Imaging Ultrasound (Routine) - Pending Review Specialty Diagnoses / Procedures Referred By Contac Referred To Contact Radiology. Diagnoses abnormality affecting management of mother, single or unspecified fetus Procedures [facility] US Comprehensive Single F/U Swati Hurst MD [address] [facility] [address] [place] [address] Referral ID Status Reason Start Date Expiration Date V isits Requested Visits Authorized [id number] Pending Review 06/01/2023 05/31/2024 1 1 Encounter Details Date Type Department Care Team (Latest Contact Info) Description 06/29/2023 2:15 PM CDT - 06/29/2023 11:59 PM CDT Hospital Encounter [facility] [place] [address] [place] [phone] wSati Hurst MD [address] [place] [phone] abnormality affecting management of mother, single or [...] Info) Description 09/29/2023 2:15 PM CDT Appointment [facility]aternal Medicine [facility] [address] [place] [address] Valeria Isabel MD [address] [place] [phone] 09/29/2023 2:45 PM CDT Office Visit [facility] [address] [place], [place] [address] Valeria Isabel MD [address] [facility] [address] [address] 09/29/2023 3:00 PM CDT Office Visit [facility] [address] [place], [place] [address] Sue Sahni CNM [address] [facility] [address] [phone] documented as of this encounter Procedures Procedure Name Priority Date/Time Associated Diagnosis Comments [facility] US COMPREHENSIVE SINGLE F/U Routine 06/29/2023 2:58 PM CDT abnormality affecting management of mother, single or unspecified fetus documented in this encounter Results * [facility] US Comprehensive Single F/U (06/29/2023 2:58 PM [...] ? Study Date: ??06/29/2023 2:20pm Pat. NO: ??[id number] ?Referring ??MD: FRANCIA GILMAN Site: ??[facility] ? Public [employer] Facilities Rental Manager: Mumtaz Ventura RDMS : ??2000 ?Age: ?? [...] 2 lb 3 ?oz EFW by ?Hadlock ([id number]) Head / Face / Neck Biometry: Tree Thinner ? 4.6 ? mm CM ?4.7 ? mm ANATOMY ----- The following structures appear abnormal: Heart / Thorax ?4-chamber view: left side of heart is smaller than the right. . 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 . 3-vessel view: small aorta. 9-hmoxmo-hekjwpc view: small aorta . The following structures [...] on PGE. Plan for repeat assessment with [facility] of cardiac anatomy and growth in 4 weeks. She will likely need to delivery at [place], however, will plan to reevaluate following her [...] the patient (reviewing medical records/tests), in direct ehjt-tz-nugy contact with the patient during her visit with the majority spent counseling and discussing the plan of care and documenting the visit in the electronic medical record. Please see note for details. Procedure Note Swati Hurst MD - 07/03/2023 Comp Follow Up ----- Pat. Name: GRZEGORZ AN RA Study Date: 06/29/2023 2:20pm Pat. NO: [id number] Referring MD: FRANCIA GILMAN Site: [facility] Public Events Facilities Rental Manager: Mumtaz Ventura RDMS : 2000 Age: 22 [...] 2 lb 3 oz EFW by Hadlock ([id number]) Head / Face / Neck Biometry: Tree Thinner 4.6 mm CM 4.7 mm ANATOMY ----- The following structures appear abnormal: Heart / Thorax 4-chamber view: left side of heart issmaller than the right. . LVOT view: mitral valve hypoplasia . Aortic archview: hypoplasia of aortic isthmus . 3-vessel view: small aorta.0-bokvts-dvxwduj view: small aorta . The following structures [...] known cardiac [facility]. 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 Per cardiology, this anatomy may be dependenton PGE. Plan for repeat assessment with [facility] of cardiac anatomy and growth in4 weeks. She will likely need to delivery at [place], however, will planto reevaluate following her next [...] see the patient (reviewing medical records/tests), in otmrjcinxa-yi-bsqb contact with the patient during her visit [...] fluid volume appeared normal. Swati [facility] US ORDERABLE S documented in this encounter Visit Diagnoses Diagnosis abnormality affecting management of mother, single or unspecified fetus documented in this encounter Care Teams Braille Duplicating Machine Operator Relationship Specialty Start Date End Date No Ref-Primary, Physician PCP - General 05/08/23 documented as of this encounter
--- OUTSIDE RECORDS SUMMARY | 2023-09-25 13:05 | XMS_ITS | Encounter Summary ---
Author Organization [place] Address [address] [place] [address] Care Team Providers Care Chief School Finance Officer Name Role Phone No Ref-Primary, Physician Primary Care Provider Reason for Referral * Diagnostic Imaging Ultrasound (Routine) - Pending Review Specialty Diagnoses / Procedures Referred By Contac t Referred To Contact Radiology. Diagnoses Congenital heart defect Procedures [facility] US Comprehensive Single F/U Swati Hurst MD [address] [place] [address] Referral ID Status Reason Start Date Expiration Date V isits Requested Visits Authorized [id number] Pending Review 06/29/2023 06/28/2024 1 1 Reason for Visit * Reason Comments Ultrasound RL2-CHD Encounter Details Date Type Department Care Team (Late st Contact Info) Description 06/29/2023 2:45 PM CDT Office Visit [facility] [place] [address] [facility] [address] [place] [address] Swati Hurst MD [address] [place] [address] Congenital heart defect (Primary Dx) [...] 06/29/2023 2:45 PM CDT Patient presents to [facility] for RL2 at 26w3d due to CHD. Positive movement. Denies LOF, vaginal bleeding or cramping/contractions. SBAR given to [facility] , see their note in Epic. documented in this encounter Plan of Treatment Upcoming Encounters Date Type Department Care Team (Late st Contact Info) Description 09/29/2023 2:15 PM CDT Appointment [facility] [place] [address] [place] [phone] Valeria Isabel MD [address] [id number] 09/29/2023 2:45 PM CDT Office Visit [facility] [place] [address] [place] [address] Valeria Isabel MD [address] [address] 09/29/2023 3:00 PM CDT Office Visit [facility] [place] [address] [place] [address] Sue Sahni CNM [address] [address] [phone] (work) documented as of this encounter Results * [facility] US Comprehensive Single F/U (07/31/2023 2:45 PM [...] ? Study Date: ??07/31/2023 2:19pm Pat. NO: ??[id number] ?Referring ??: FRANCIA GILMAN Site: ??[facility] ? Steward/Stewardess Banquet: Justyna Calixto RDMS : ??2000 ?Age: ?? [...] lb 11 ? oz EFW by ?Hadlock ([id number]) Head / Face / Neck Biometry: Interactive Media Specialist ? 4.0 ? mm CM ?5.2 ? mm ANATOMY ----- The following structures appear abnormal: Heart / Thorax ?4-chamber view: See Echo report by [facility] from 05/20/2023. LVOT view. 3-vessel view. 4-mgpccs-tcwxfwd view. The following structures appear normal: Head [...] NARAYAN Study Date: 07/31/2023 2:19pm Pat. NO: [id number] Referring MD: FRANCIA GILMAN Site: [facility] Steward/Stewardess Banquet: Justyna Calixto RDMS : 2000 Age: 22 [...] 3 lb 11 oz EFW by Hadlock ([id number]) Head / Face / Neck Biometry: Interactive Media Specialist 4.0 mm CM 5.2 mm ANATOMY ----- The following structures appear abnormal: Heart / Thorax 4-chamber view: See Echo reportby [facility] from 05/20/2023. LVOT view. 3-vessel view.2-vfijpd-fvnolxb view. The following structures appear normal: Head [...] volume appeared normal. Swati Hurst MD [facility] ORDERABLE S documented in this encounter Visit Diagnoses Diagnosis Congenital heart defect- Primary Unspecified congenital anomaly of heart Congenital heart defect Unspecified congenital anomaly of heart documented in this encounter Care Teams Chief School Finance Officer Relationship Specialty Start Date End Date No Ref-Primary, Physician PCP - General 05/08/23 documented as of this encounter
--- OUTSIDE RECORDS SUMMARY | 2023-09-25 13:05 | XMS_ITS | Clinical Summary ---
Author Organization [employer] [facility] Address [place], [place] [address] Care Team Providers Care Manager Investment Name Role Phone Anitha Ojeda DO Primary Care Provider [phone] Allergies Active Allergy Reactions Criticality Noted Date Comments Strang Shortness Of Breath,Rash 01/03/2020 Medications Medication Sig [...] Comments Blood Pressure 121/78 02/18/2022 9:36 AM INTERNATIONAL SOURCING MANAGER Pulse 70 02/18/2022 9:36 AM INTERNATIONAL SOURCING MANAGER Temperature 37.1 ??C (98.8 ??F) 09/30/2021 1:43 PM CD T Respiratory Rate 14 12/21/2020 8:12 AM CDT Oxygen Saturation 99% 02/18/2022 9:36 AM INTERNATIONAL SOURCING MANAGER Inhaled Oxygen Concentration - - Weight 82.6 kg (182 lb) 02/18/2022 9:36 AM INTERNATIONAL SOURCING MANAGER Height 157 cm (5' 1.81) 07/11/2021 8:31 [...] CHLAMYDIA TRACH PROBE Routine 05/20/2021 3:33 PM INTERNATIONAL SOURCING MANAGER Routine screening for STI (sexually transmitted infection) ANTI HIV 1/2 Routine 06/29/2020 3:20 PM CDT Leukocytosis, unspecified type Thrombocytosis (HC) from Last 3 Months or Most Recently Relevant to Health Maintenance Results * HPV HIGH RISK (09/12/2022 3:00 PM CDT) TYPE 16 Negative Negative 09/23/2022 5:00 PM CDT [facility] TYPE 18 Negative Negative 09/23/2022 5:00 PM CDT [facility] OTHER HIGH RISK TYPES Negative Negative 09/23/2022 5:00 PM CDT [facility] Other (Other) 09/12/2022 3:0 0 PM CDT 09/17/2022 12:19 PM CDT Narrative [facility] - 09/23/2022 5:00 PM CDT HPV types 16, 18, 31, 33, 35, 39, 45, 51, 52, 56, 58, 59, 66 and 68 DNA were undetectable or below the pre-set threshold. Methodology: Michelle Adela 4800 HPV Test Alley Johnson MD MICROBIOLO GY [facility] [address] [place] [address], [place] * GC CHLAMYDIA TRACH PROBE (05/20/2021 3:33 PM INTERNATIONAL SOURCING MANAGER) CHLAMYDIA PROBE Negative 4:11 AM INTERNATIONAL SOURCING MANAGER [facility] N GONORRHOEAE PROBE Negative 05/21/2021 4:11 AM INTERNATIONAL SOURCING MANAGER [facility] Other URINE SPECIMEN / Unknown Non-Blood / Unknown 05/20/2021 3:33 PM INTERNATIONAL SOURCING MANAGER 05/20/2021 3:34 PM INTERNATIONAL SOURCING MANAGER Madina Goetz MD MICROBIOLOG Y [facility] [address] [place] [address], * ANTI HIV 1/2 (06/29/2020 3:20 PM CDT) Pathologist [facility] HIV-1/HIV-2 ANTIBODY Non-Reacti ve Non-Reacti ve 06/29/2020 9:14 PM CDT [facility] Comment:HIV-1 p24 and HIV-1/ HIV-2 Ab not detected. Blood BLOOD SPECIMEN / Unknown Venipuncture / Unknown 06/29/2020 3:20 PM CDT 06/29/2020 3:20 PM CDT Anitha Ojeda DO SEND OUTS Performing Organization Address [facility] [address]/ZIP Co de Phone Number [facility] [address] [place] [address], from Last 3 Months or Most Recently Relevant to Health Maintenance Care Teams Manager Investment Relationship Specialty Start Date End Date Anitha Ojeda DO [facility] [place] [address] PCP - General Family Practice 07/05/20
--- OUTSIDE RECORDS SUMMARY | 2023-09-25 13:05 | XMS_ITS | Encounter Summary ---
Author Organization [place] Address Formerly [facility] [place] [address] Care Team Providers Care Sap Bw Consultant Name Role Phone No Ref-Primary, Physician Primary Care Provider Hetal Parra MD Unavailable [phone] Encounter Details Date Type Department Care Team (Late st Contact Info) Description 05/21/2023 MyC Medical Advice [facility] [address] [facility] [address] [place] [address] Kym Little, DIPTI Social History [...] Info) Description 09/29/2023 2:15 PM CDT Appointment [facility] [place] [address] [place] [address] Valeria Isabel MD [address] [place] [address] 09/29/2023 2:45 PM CDT Office Visit [facility] [place] [address] [place] [address] Valeria Isabel MD [address] [id number] 09/29/2023 3:00 PM CDT Office Visit [facility] [place] [address] [place], [place] [id number] Sue Sahni CN [address] [address] documented as of this encounter Visit Diagnoses Not on filedocumented in this encounter Care Teams Sap Bw Consultant Relationship Specialty Start Date End Date No Ref-Primary, Physician PCP - General 05/08/23 Hetal Parra MD [address] [id number] Assigned OBGYN Provider 09/06/23 documented as of this encounter
== END 2023-09-25 13:02 | disposition home or self-care (01) ==
LOC: US 13:01
PROVIDERS: Visit Provider Obstetrics & Gynecology
DX: O35.BXX0 Maternal care for other (suspected) fetal abnormality and damage, fetal cardiac anomalies, not applicable or unspecified (principal)
CPT/HCPCS: 76819

== ENCOUNTER 2025-03-03 09:15 | Outpatient (CLI) | payer MEDICAID, SELFPAY ==
[2025-03-04 22:04] LABS: HPV Source Cervix
[2025-03-07 16:01] LABS: Pap Test Digital Imaging Done
== END 2025-03-03 09:16 | disposition home or self-care (01) ==
PROVIDERS: PCP Registered Nurse; Visit Provider Physician Assistant
DX: Z12.4 Encounter for screening for malignant neoplasm of cervix (principal); Z13.9 Encounter for screening, unspecified
CPT/HCPCS: 80061; 82947; 83525; 87624; 87625; 88141; 88142; 88175